=== PATIENT | female | born 1970 | race Caucasian/White ===

== ENCOUNTER 2021-05-23 11:45 | Observation (INO) ==
--- NOTE | 2021-05-23 12:20 | XRay Report ---
SINGLE VIEW CHEST CLINICAL HISTORY: Strokelike symptoms. FINDINGS: An AP, portable, upright chest radiograph is compared to study dated 09/14/2019. The cardio mediastinal silhouette is unremarkable. The lungs and pleural spaces are clear. No pneumothorax is se en. The bony thorax is grossly intact. IMPRESSION: No active disease in the chest. ACT 112: Negative or not required by law. Electronically signed by: Chris Landry M.D. 05/23/2021 12:18 PM
--- NOTE | 2021-05-23 12:38 | CT Scan Report ---
CT SCAN OF THE BRAIN WITHOUT IV CONTRAST CLINICAL HISTORY: Strokelike symptoms. Dizziness. Visual changes. COMPARISON STUDY: CT of the brain dated 07/18/2018. TECHNIQUE: Unenhanced axial CT scan of the brain is performed from the vertex to the skull base. A d ose lowering technique was utilized adhering to the principles of ALARA. CT DOSE: 537.48 mGy.cm FINDINGS: Brain parenchyma: The brain parenchyma is normal in appearance. There is no hemorrhage, mass effect, or evidence of acute territorial ischemia by CT criteria. Alvarez-white matter differentiation is preser georges. No extra-axial fluid collection is seen. Ventricles, sulci, cisterns: Normal in configuration. Intracranial vasculature: The visualized intracranial vasculature at the skull base is normal in appe arance. Calvarium: Unremarkable. Sinuses and mastoids: The visualized paranasal sinuses are clear. The mastoid air cells are well pneu matized. Orbits: The bony orbits are grossly intact. IMPRESSION: There is no hemorrhage, mass effect, or evidence of acute territorial ischemia by CT phyllis stark. ACT 112: Negative or not required by law. Electronically signed by: Chris Landry M.D. 05/23/2021 12:36 PM
[2021-05-23 12:42] LABS: Hematocrit (blood only) 42.6 % (37-47); Hemoglobin 14.4 g/dL (12.0-16.0); Mean Corpuscular Hemoglobin 31.6 pg (25-34); Mean Corpuscular Hgb Conc 33.8 g/dL (32-36); Mean Corpuscular Volume 93.6 fL (80-100); Mean Platelet Volume 9.9 fL (7.4-10.4); Platelet Count 85 K/uL (130-400); RDW Coefficient of Variation 14.4 % (11.5-14.5); RDW Standard Deviation 48.7 fL (36.4-46.3); Red Blood Count 4.55 M/uL (4.2-5.4); White Blood Count 5.07 K/uL (4.8-10.8)
[2021-05-23 12:46] LABS: Albumin Globulin Ratio 0.9 (0.9-2); Albumin Level 4.3 gm/dl (3.4-5.0); BUN Creatinine Ratio 11.4 (10-20); Calcium 9.6 mg/dl (8.5-10.1); Creatinine Clr Calc Pharmacy 85.5 ml/min; Est GFR (African American) 81.9 ml/min; Est GFR (Non-African American) 70.7 ml/min; Globulin 4.8 gm/dl (2.5-4.0); Magnesium 2.2 mg/dl (1.8-2.4); Potassium 4.2 mmol/L (3.5-5.1); Total Protein 9.1 gm/dl (6.4-8.2)
[2021-05-23 12:49] LABS: Appearance Urine Clear (Clear); Bilirubin Urine Negative (Negative); Blood Urine Negative (Negative); Color Urine Yellow; Glucose Urine UA Negative (Negative); Ketones Urine Negative (Negative); Leukocyte Esterase Urine Negative (Negative); Nitrite Urine Negative (Negative); Protein Urine Negative (Negative); Specific Gravity Urine 1.011 (1.000-1.030); Urobilinogen Urine Negative (Negative)
[2021-05-23 13:21] LABS: INR 1.4 (0.9-1.1); Partial Thromboplastin Ratio 4.2; Prothrombin Time 14.2 Seconds (9.0-12.0)
[2021-05-23 13:35] LABS: Partial Thromboplastin Time 111.3 Seconds (21.0-31.0)
--- NOTE | 2021-05-23 14:10 | Electrocardiogram Report ---
Test Reason : Blood Pressure : / mmHG Vent. Rate : 073 BPM Atrial Rate : 073 BPM P-R Int : 158 ms QRS Dur : 098 ms QT Int : 416 ms P-R-T Axes : 054 000 046 degrees QTc Int : 458 ms Normal sinus rhythm Poor R wave progression, consider anterior DE vs. lead placement vs. LVH Possible Abnormal ECG When compared with ECG of 30-JUL-2018 22:17, Minimal criteria for Inferior infarct are no longer Present Confirmed by Kranthi Vance ([id number]) on 05/23/2021 2:10:12 PM Referred By: Confirmed By:Kranthi Vance
--- NOTE | 2021-05-23 14:27 | Emergency Department Note ---
Impression & Plan Facial numbness, Left arm numbness, Visual disturbance ED Provider Note INFORMANT: Patient ED PROVIDER(S): Smith Mcelroy MD CHIEF COMPLAINT: Strokelike symptoms PLAN: Disposition: Admitted Condition: Good Outpatient prescription management: none Referral: None MEDICAL DECISION MAKING: Patient presented to the emergency department because of neuro complaints. She is asymptomatic at this time. A work-up was initiated. CT imaging the head was negative. Her ECG was unremarkable for acute process. The patient's blood work revealed a chronic thrombocytopenia. She also had elevated LFTs and elevated coagulation studies. Due to her abnormal blood work the patient would be at risk for bleeding with anticoagulation. Her neurologic symptoms are concerning although they have resolved at this time. Because of this issue further management in the hospital was felt to be appropriate. Consultation was made with the [facility] and the patient was evaluated in the ER for further management. Triage Nursing notes reviewed and agree them. Vital Signs: reviewed and remarkable for no significant abnormalities Differential diagnosis: CVA, TIA, Infection, dehydration, metabolic abnormality, hypo/hyperglycemia, electrolyte disturbance, anemia, hypoxia, cardiac sources, intracerebral event, toxicologic, neurologic, as well as other pathologies. Diagnostics interpreted by me: ECG: Twelve-lead ECG reveals normal sinus rhythm at 73 bpm. Anterior Q waves noted. No ST elevation or depression. Normal axis. No PVCs. Cardiac Monitoring: Cardiac monitoring ordered by me: The patient was placed on continuous cardiac monitoring and observed. It revealed a normal sinus rhythm at 73 beats per minute without ectopy or evidence of dysrhythmia. Imaging studies: Chest x-ray. Findings: A chest x-ray was performed and revealed no pneumothorax, effusion, infiltrate, pulmonary edema, free air under the diaph ragm, or wide mediastinum. Impression: No acute disease. Head CT: A noncontrast CT scan of the head was performed and was negative for tumor, fracture, intracranial hemorrhage, or other acute pathology. HPI: The patient is a 51 year old female who presents to the Emergency Room with complaints of stroke like symptoms. This started 10am and is resolved. The patient also notes the following associated symptoms, blurry vision in the left eye, left facial numbness, left arm numbness, and dizziness. The patient has taken no medication for relieving factors. Current pain is rated as 0/10. Pt denies LOC, headache, fevers, chills, diaphoresis, neck pain, chest pain, breathing difficulties, nausea, vomiting, abdominal pain, back pain, melena, hematochezia, urinary symptoms, weakness, lymphadenopathy, rash, or other complaints. ROS: See above HPI for pertinent positives & negatives. A total of 10 systems reviewed and were otherwise negative. PAST MEDICAL HISTORY:See Below , CVA, ITP PAST SURGICAL HISTORY:See Below, FAMILY HISTORY:See Below SOCIAL HISTORY:See Below, quit tobacco HOME MEDICATIONS:See Below ALLERGIES:See Below VITALS:See Below PHYSICAL EXAMINATION: GENERAL: Awake, alert, well-appearing, in no distress HENT: Normocephalic, atraumatic. Oropharynx unremarkable. EYES: Normal conjunctiva. Sclera non-icteric. PERRL, EOMI NECK: Inspection normal. Non-tender. Supple. No nuchal rigidity. FROM. No masses. RESPIRATORY: Clear to auscultation. No wheezes. No rales. Normal respiratory effort. CARDIAC: Normal rate. Normal rhythm. No murmurs. No rubs. Extremities warm and well perfused. Pulses equal. No JVD. GI: Soft, non-distended. No tenderness to palpation. No rebound or guarding. No masses. RECTAL: Deferred. MUSCULOSKELETAL: Atraumatic. Chest examination reveals no tenderness. The back is symmetrical on inspection without obvious abnormality. There is no CVA tenderness to palpation. No joint edema. LOWER EXTREMITIES: Calves are equal size bilaterally and non-tender. No edema. No discoloration. NEURO: Normal sensorium. No sensory or motor deficits noted. No drift. NML AMADO. SKIN: No rash or jaundice noted. 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 Beliefs That Will Affect Care: None Current Living Situation: Alone Other Information That Helps Us Care for You: No Feels Safe at Home: Yes Safety Concerns: Feels Safe At This Time Assistive Devices: None Allergies Allergies Allergy/AdvReac Type Severity Reaction Status Date / Time codeine Allergy Severe Hives Verified 05/23/21 14:02 Home Meds Home Medications Medication Instructions Recorded Confirmed pantoprazole 40 mg tablet,delayed 40 mg PO QAM 07/18/18 05/23/21 release (Protonix) simvastatin 20 mg tablet (Zocor) 20 mg PO HS 07/18/18 05/23/21 acetaminophen 500 mg tablet 500 - 1,000 mg PO Q6H PRN 09/14/19 05/23/21 (Tylenol Extra Strength) levothyroxine 25 mcg tablet 25 mcg PO QAM 09/14/19 05/23/21 (Synthroid) loratadine 10 mg tablet (Claritin) 10 mg PO DAILY PRN 09/14/19 05/23/21 multivitamin 1 tab PO QAM 09/14/19 05/23/21 albuterol sulfate 90 mcg/actuation 2 puffs INH 6XD PRN 02/07/20 05/23/21 aerosol inhaler (Ventolin HFA) Lactobacillus acidophilus 1.5 mg 1,000 mmu cells PO DAILY 05/23/21 05/23/21 (250 million cell) capsule (Probiotic Acidophilus) metformin 500 mg tablet 500 mg PO QDB 05/23/21 05/23/21 Results & Data (ED) Vital Signs Vital Signs - 24 hr 05/23/21 11:49 05/23/21 13:30 05/23/21 15:00 Temperature 36.3 C L Temperature Source Temporal Artery Scan Pulse Rate 75 Pulse Rate [Left Finger] 71 76 Pulse Rhythm [Left Finger] Regular Pulse Strength [Left Finger] Normal Respiratory Rate 16 20 20 Respiratory Effort / Characteristics Non-Labored Non-Labored Spontaneous Respiratory Depth Normal Normal Blood Pressure 110/70 Blood Pressure [Left Arm] 129/74 120/70 Blood Pressure Mean 83 Blood Pressure Mean [Left Arm] 92 86 Blood Pressure Position [Left Arm] Lying Sitting Pulse Oximetry 97 96 98 Oxygen Delivery Method Room Air Sepsis Recent Fever Within 48 Hours No Sepsis New/Unexplained Change in Mental Status N/A Sepsis Action Taken by Nursing No Action Required Laboratory Data Result diagrams: 05/23/21 12:00 05/23/21 12:00 Lab Results 05/23/21 05/23/21 05/23/21 Range/Units 12:00 12:00 12:00 WBC 5.07 (4.8-10.8) K/uL RBC 4.55 (4.2-5.4) M/uL Hgb 14.4 (12.0-16.0) g/dL Hct 42.6 (37-47) % MCV 93.6 (80-100) fL MCH 31.6 (25-34) pg MCHC 33.8 (32-36) g/dL RDW Std Deviation 48.7 H (36.4-46.3) fL RDW Coeff of Mitch 14.4 (11.5-14.5) % Plt Count 85 L (130-400) K/uL MPV 9.9 (7.4-10.4) fL PT Cancelled INR Cancelled APTT Cancelled PTT Ratio Cancelled Sodium 136 (136-145) mmol/L Potassium 4.2 (3.5-5.1) mmol/L Chloride 105 (98-107) mmol/L Carbon Dioxide 29 (21-32) mmol/L Anion Gap 2.0 L (3-11) BUN 11 (7-18) mg/dl Creatinine 0.93 (0.6-1.2) mg/dl Est Cr Clr Drug Dosing 85.5 ml/min Est GFR ( Amer) 81.9 ml/min Est GFR (Non-Af Amer) 70.7 ml/min BUN/Creatinine Ratio 11.4 (10-20) Glucose 96 (70-99) mg/dl POC Glucose (70-99) mg/dl Calcium 9.6 (8.5-10.1) mg/dl Magnesium 2.2 (1.8-2.4) mg/dl Total Bilirubin 1.0 (0.2-1) mg/dl AST 111 H (15-37) U/L ALT 115 H (12-78) U/L Alkaline Phosphatase 158 H (45-117) U/L Total Protein 9.1 H (6.4-8.2) gm/dl Albumin 4.3 (3.4-5.0) gm/dl Globulin 4.8 H (2.5-4.0) gm/dl Albumin/Globulin Ratio 0.9 (0.9-2) Specimen Hemolysis Urine Color Urine Appearance (Clear) Urine pH (4.5-7.5) Ur Specific [place] (1.000-1.030) Urine Protein (Negative) Urine Glucose (UA) (Negative) Urine Ketones (Negative) Urine Blood (Negative) Urine Nitrite (Negative) Urine Bilirubin (Negative) Urine Urobilinogen (Negative) Ur Leukocyte Esterase (Negative) COVID-19 Eval Order SARS-CoV-2 (PCR) (Negative) 05/23/21 05/23/21 05/23/21 Range/Units 12:33 12:46 13:49 WBC (4.8-10.8) K/uL RBC (4.2-5.4) M/uL Hgb (12.0-16.0) g/dL Hct (37-47) % MCV (80-100) fL MCH (25-34) pg MCHC (32-36) g/dL RDW Std Deviation (36.4-46.3) fL RDW Coeff of Mitch (11.5-14.5) % Plt Count (130-400) K/uL MPV (7.4-10.4) fL PT 14.2 H INR 1.4 H APTT 111.3 H* PTT Ratio 4.2 Sodium (136-145) mmol/L Potassium (3.5-5.1) mmol/L Chloride (98-107) mmol/L Carbon Dioxide (21-32) mmol/L Anion Gap (3-11) BUN (7-18) mg/dl Creatinine (0.6-1.2) mg/dl Est Cr Clr Drug Dosing ml/min Est GFR ( Amer) ml/min Est GFR (Non-Af Amer) ml/min BUN/Creatinine Ratio (10-20) Glucose (70-99) mg/dl POC Glucose 104 H (70-99) mg/dl Calcium (8.5-10.1) mg/dl Magnesium (1.8-2.4) mg/dl Total Bilirubin (0.2-1) mg/dl AST (15-37) U/L ALT (12-78) U/L Alkaline Phosphatase (45-117) U/L Total Protein (6.4-8.2) gm/dl Albumin (3.4-5.0) gm/dl Globulin (2.5-4.0) gm/dl Albumin/Globulin Ratio (0.9-2) Specimen Hemolysis Urine Color Yellow Urine Appearance Clear (Clear) Urine pH 6.0 (4.5-7.5) Ur Specific [place] 1.011 (1.000-1.030) Urine Protein Negative (Negative) Urine Glucose (UA) Negative (Negative) Urine Ketones Negative (Negative) Urine Blood Negative (Negative) Urine Nitrite Negative (Negative) Urine Bilirubin Negative (Negative) Urine Urobilinogen Negative (Negative) Ur Leukocyte Esterase Negative (Negative) COVID-19 Eval Order SARS-CoV-2 (PCR) (Negative) 05/23/21 05/23/21 Range/Units 14:44 14:44 WBC (4.8-10.8) K/uL RBC (4.2-5.4) M/uL Hgb (12.0-16.0) g/dL Hct (37-47) % MCV (80-100) fL MCH (25-34) pg MCHC (32-36) g/dL RDW Std Deviation (36.4-46.3) fL RDW Coeff of Mitch (11.5-14.5) % Plt Count (130-400) K/uL MPV (7.4-10.4) fL PT INR APTT PTT Ratio Sodium (136-145) mmol/L Potassium (3.5-5.1) mmol/L Chloride (98-107) mmol/L Carbon Dioxide (21-32) mmol/L Anion Gap (3-11) BUN (7-18) mg/dl Creatinine (0.6-1.2) mg/dl Est Cr Clr Drug Dosing ml/min Est GFR ( Amer) ml/min Est GFR (Non-Af Amer) ml/min BUN/Creatinine Ratio (10-20) Glucose (70-99) mg/dl POC Glucose (70-99) mg/dl Calcium (8.5-10.1) mg/dl Magnesium (1.8-2.4) mg/dl Total Bilirubin (0.2-1) mg/dl AST (15-37) U/L ALT (12-78) U/L Alkaline Phosphatase (45-117) U/L Total Protein (6.4-8.2) gm/dl Albumin (3.4-5.0) gm/dl Globulin (2.5-4.0) gm/dl Albumin/Globulin Ratio (0.9-2) Specimen Hemolysis Urine Color Urine Appearance (Clear) Urine pH (4.5-7.5) Ur Specific [place] (1.000-1.030) Urine Protein (Negative) Urine Glucose (UA) (Negative) Urine Ketones (Negative) Urine Blood (Negative) Urine Nitrite (Negative) Urine Bilirubin (Negative) Urine Urobilinogen (Negative) Ur Leukocyte Esterase (Negative) COVID-19 Eval Order Covid19 at [facility] SARS-CoV-2 (PCR) NEGATIVE (Negative) Administered Medications Lorazepam (Ativan) 1 mg in 2 mls @ 0.5 mls/min IV UD PRN PRN Reason: Anxiety Stop: 06/22/21 17:19 Last Admin: 05/23/21 22:30 Dose: 0.5 mls/min Documented by: [id number] Simvastatin (Simvastatin 20 Mg Tab) 20 mg PO HS MATTHIAS Stop: 06/22/21 20:59 Last Admin: 05/23/21 20:42 Dose: 20 mg Documented by: [id number] Imaging Data Radiologist's Impression: Chest X-Ray 05/23/21 11:56 SINGLE VIEW CHEST CLINICAL HISTORY: Strokelike symptoms. FINDINGS: An AP, portable, upright chest radiograph is compared to study dated 09/14/2019. The cardiomediastinal silhouette is unremarkable. The lungs and pleural spaces are clear. No pneumothorax is seen. The bony thorax is grossly intact. IMPRESSION: No active disease in the chest. ACT 112: Negative or not required by law. Electronically signed by: Chris Landry M.D. 05/23/2021 12:[address] 05/23/21 12:13 CT SCAN OF THE BRAIN WITHOUT IV CONTRAST CLINICAL HISTORY: Strokelike symptoms. Dizziness. Visual changes. COMPARISON STUDY: CT of the brain dated 07/18/2018. TECHNIQUE: Unenhanced axial CT scan of the brain is performed from the vertex to the skull base. A dose lowering technique was utilized adhering to the principles of ALARA. CT DOSE: 537.48 mGy.cm FINDINGS: Brain parenchyma: The brain parenchyma is normal in appearance. There is no hemorrhage, mass effect, or evidence of acute territorial ischemia by CT criteri a. Alvarez-white matter differentiation is preserved. No extra-axial fluid collection is seen. Ventricles, sulci, cisterns: Normal in configuration. Intracranial vasculature: The visualized intracranial vasculature at the skull base is normal in appearance. Calvarium: Unremarkable. Sinuses and mastoids: The visualized paranasal sinuses are clear. The mastoid air cells are well pneumatized. Orbits: The bony orbits are grossly intact. IMPRESSION: There is no hemorrhage, mass effect, or evidence of acute territorial ischemia by CT criteria. ACT 112: Negative or not required by law. Electronically signed by: Chris Landry M.D. 05/23/2021 12:36 PM Discharge Plan Visit Data Chief Complaint: Neuro Symptoms/Deficit Stated Complaint: VISION LOSS, TINGLING HANDS, HEAD TIGHTNESS ED Provider: Smith Mcelroy Discharge Problem: Facial numbness, Left arm numbness, Visual disturbance Patient Disposition: Admitted As Inpatient Discharge Instructions Interventions: ED Discharge Assessment Last Done: 05/23/21 16:20
[2021-05-23] MEDS ORDERED: ACETAMINOPHEN 325 MG TAB PO PRN (16:47)
[2021-05-23] MEDS ORDERED: PHARMACIST DISCHARGE MED REC CONSULT PRN (16:47)
[2021-05-23] MEDS ORDERED: LORazepam 1 MG/2 ML VIAL IV PRN (17:20)
--- NOTE | 2021-05-23 18:30 | History & Physical Report ---
Date of Service May 23, 2021 Assessment & Plan (1) Stroke-like symptoms: Plan: -Admit to telemetry -Patient presenting from home with reports of left eye blurriness, headache, left-sided tingling; symptoms now resolved -In the ED, head CT negative for acute findings -Brain MRI, neurochecks -if brain MRI positive for CVA, will complete work up with echo and carotid imaging -?? Complex migraine -Neurology consult -Noted history of ITP and antiphospholipid syndrome; platelets 85K today, if patient needs antiplatelet or anticoagulation, may need to consult with hematology (patient follows with Dr. Ralph Barron) (2) DM type 2 (diabetes mellitus, type 2): Plan: -Hgb A1c 5.4 05/2021 -Hold metformin while hospitalized, monitor BSG -add NovoLog if needed (3) Elevated LFTs: Plan: -History of elevated LFTs which seem to be at baseline today -Recommend outpatient follow-up with GI (4) Hyperlipidemia: Plan: -Continue statin (5) Hypothyroidism: Plan: -Continue levothyroxine (6) APL (antiphospholipid syndrome): (7) Chronic ITP (idiopathic thrombocytopenia): (8) Coagulopathy: Plan: -Platelets 85K, at baseline -INR 1.4, APTT 111 -Recommend follow-up with hematology (9) DVT prophylaxis: Plan: -SCDs due to thrombocytopenia Admission and Anticipated Discharge Date Admission Date: May 23, 2021 History of Present Illness Chief Complaint: Strokelike symptoms Primary Care Provider: Jewels Greenfield MD 51-year-old female with PMH hypothyroidism, GERD, chronic ITP, DM type II, antiphospholipid syndrome, and other problems to below who presents to the ED for evaluation of strokelike symptoms. Patient reports that this afternoon she was cooking lunch when the vision in her left eye became blurry, she developed a headache, and the left side of her body was tingling. She reports symptoms lasted for about 30 minutes and then resolved. She denies any unilateral weakness, facial droop, difficulty speaking or understanding. Patient denies chest pain or shortness of breath. No lightheadedness, dizziness, diaphoresis, syncopal events. She denies any other recent illnesses, fevers, chills. No abdominal pain, nausea, vomiting or diarrhea. She denies any urinary symptoms. In the ED, head CT is negative for acute findings. Allergies Allergy/AdvReac Type Severity Reaction Status Date / Time codeine Allergy Severe Hives Verified 05/23/21 14:02 Home Medications Medication Instructions Recorded Confirmed Type pantoprazole 40 mg tablet,delayed 40 mg PO QAM 07/18/18 05/23/21 History release (Protonix) simvastatin 20 mg tablet (Zocor) 20 mg PO HS 07/18/18 05/23/21 History acetaminophen 500 mg tablet 500 - 1,000 mg PO Q6H PRN 09/14/19 05/23/21 History (Tylenol Extra Strength) levothyroxine 25 mcg tablet 25 mcg PO QAM 09/14/19 05/23/21 History (Synthroid) loratadine 10 mg tablet (Claritin) 10 mg PO DAILY PRN 09/14/19 05/23/21 History multivitamin 1 tab PO QAM 09/14/19 05/23/21 History albuterol sulfate 90 mcg/actuation 2 puffs INH 6XD PRN 02/07/20 05/23/21 History aerosol inhaler (Ventolin HFA) Lactobacillus acidophilus 1.5 mg 1,000 mmu cells PO DAILY 05/23/21 05/23/21 History (250 million cell) capsule (Probiotic Acidophilus) metformin 500 mg tablet 500 mg PO QDB 05/23/21 05/23/21 History Past Med/Surg History Medical History Anxiety APL (antiphospholipid syndrome) Chronic ITP (idiopathic thrombocytopenia) DM type 2 (diabetes mellitus, type 2) Former tobacco use GERD (gastroesophageal reflux disease) Hyperlipidemia Hypothyroidism Surgical History History of bone marrow biopsy History of hysterectomy Family History (Updated 05/23/21 @ 18:35 by PADDY Tovar) Mother Diabetes Father Stroke Social History Smoking Status: Never smoker Second Hand Exposure: Yes; Hx Alcohol Use: No Hx Substance Use: No Preferred Language: Kenyan Communication Ability: Effective Icu Nurse Required: No Beliefs That Will Affect Care: None Current Living Situation: Alone Other Information That Helps Us Care for You: No Feels Safe at Home: Yes Safety Concerns: Feels Safe At This Time Assistive Devices: None Review of Systems Review of Systems: ROS per HPI, all other systems reviewed and negative Physical Exam Constitutional: WD/WN, vitals as above Eyes: PERRL, conjunctivae normal, anicteric sclerae ENMT: external ear and nose normal, oropharynx normal Respiratory: normal respiratory effort, lungs clear to auscultation Cardiovascular: Rate/Rhythm: regular rate and regular rhythm Vessels: normal peripheral pulses Extremities: + edema (Trace edema BLE) Gastrointestinal (Abdomen): normal bowel sounds, soft, nontender, no hepatosplenomegaly Musculoskeletal: no cyanosis or clubbing, extremities motor strength 5/5 Skin: no rashes, warm and dry Neurologic: PERRL, EOMI, accommodation nl, no face palsy, no dysarthria no focal motor deficits Psychiatric: A+Ox3, euthymic affect Results & Data Results & Data ([facility]) Vital Signs (Past 12 Hours) Vital Signs Temp Pulse Pulse Resp BP BP Pulse Ox 05/23/21 16:47 37.1 C 84 20 118/72 98 05/23/21 16:38 37.1 C 81 20 121/73 97 05/23/21 15:50 70 20 125/76 98 05/23/21 15:00 76 20 120/70 98 05/23/21 13:30 71 20 129/74 96 05/23/21 11:49 36.3 C L 75 16 110/70 97 Laboratory Results Short CBC 05/23/21 Range/Units 12:00 WBC 5.07 (4.8-10.8) K/uL Hgb 14.4 (12.0-16.0) g/dL Hct 42.6 (37-47) % Plt Count 85 L (130-400) K/uL BMP 05/23/21 12:00 Sodium 136 Potassium 4.2 Chloride 105 Carbon Dioxide 29 BUN 11 Creatinine 0.93 Glucose 96 Calcium 9.6 Liver Function 05/23/21 Range/Units 12:00 Total Bilirubin 1.0 (0.2-1) mg/dl AST 111 H (15-37) U/L ALT 115 H (12-78) U/L Alkaline Phosphatase 158 H (45-117) U/L Albumin 4.3 (3.4-5.0) gm/dl Urine 05/23/21 Range/Units 12:33 Urine Color Yellow Urine Appearance Clear (Clear) Urine pH 6.0 (4.5-7.5) Ur Specific [place] 1.011 (1.000-1.030) Urine Protein Negative (Negative) Urine Glucose (UA) Negative (Negative) Diagnostic Findings Chest X-Ray 05/23/21 11:56 SINGLE VIEW CHEST CLINICAL HISTORY: Strokelike symptoms. FINDINGS: An AP, portable, upright chest radiograph is compared to study dated 09/14/2019. The cardiomediastinal silhouette is unremarkable. The lungs and pleural spaces are clear. No pneumothorax is seen. The bony thorax is grossly intact. IMPRESSION: No active disease in the chest. ACT 112: Negative or not required by law. Electronically signed by: Chris Landry M.D. 05/23/2021 12:[address] 05/23/21 12:13 CT SCAN OF THE BRAIN WITHOUT IV CONTRAST CLINICAL HISTORY: Strokelike symptoms. Dizziness. Visual changes. COMPARISON STUDY: CT of the brain dated 07/18/2018. TECHNIQUE: Unenhanced axial CT scan of the brain is performed from the vertex to the skull base. A dose lowering technique was utilized adhering to the principles of ALARA. CT DOSE: 537.48 mGy.cm FINDINGS: Brain parenchyma: The brain parenchyma is normal in appearance. There is no hemorrhage, mass effect, or evidence of acute territorial ischemia by CT criteria. Alvarez-white matter differentiation is preserved. No extra-axial fluid collection is seen. Ventricles, sulci, cisterns: Normal in configuration. Intracranial vasculature: The visualized intracranial vasculature at the skull base is normal in appearance. Calvarium: Unremarkable. Sinuses and mastoids: The visualized paranasal sinuses are clear. The mastoid air cells are well pneumatized. Orbits: The bony orbits are grossly intact. IMPRESSION: There is no hemorrhage, mass effect, or evidence of acute territorial ischemia by CT criteria. ACT 112: Negative or not required by law. Electronically signed by: Chris Landry M.D. 05/23/2021 12:36 PM Code Status & VTE Plan VTE Prophylaxis Plan VTE Prophylaxis will be ordered: Yes Supervising Physician Co-Signing Physician Notes I saw this patient with the physician certified ophthalmic assistant, I participated in the history, physical, review of systems, and physical exam. I reviewed the medications with the patient and the physician certified ophthalmic assistant and helped reconcile the medications. I helped take a detailed family and social history as well. I formulated the assessment and plan personally with the physician certified ophthalmic assistant and went over it with the patient. Physical Exam Gen-AAO x 3, NAD, Afebrile Head-NCAT, EOMI, PERRLA, Anicteric Sclera, No Posterior Pharyngeal Erythema Neck-Supple, No JVD, No Thyromegaly, No Masses, No LAD, No Bruits Lungs-Clear to Auscultation Bilaterally, No Rales, No Rhonchi, No Wheezing, No Crepitus Chest-No S4, +S1, +S2, No S3, No Murmurs, No Rubs, No Gallops, No Ectopy Abdomen-Soft, Bowel Sounds Present, Non Tender, Non Distended, No Hepatomegaly, No Splenomegaly, No Palpable Masses, No Rebound, No Rigidity, No Guarding Musculoskeletal-Full Range of Motion Bilaterally, No CVAT Extremities-No Cyanosis, No Clubbing, No Edema Nuero-Cranial Nerves II-XII grossly intact, Motor WNL, DTRs WNL, Strength WNL, Non Focal Psych-Normal Mood
[2021-05-23] MEDS: SIMVASTATIN 20 MG TAB PO SCH (20:42)
[2021-05-24] MEDS: LEVOTHYROXINE SODIUM 25 MCG TABLET PO SCH (06:05)
[2021-05-24 07:23] LABS: Hematocrit (blood only) 37.8 % (37-47); Hemoglobin 12.9 g/dL (12.0-16.0); Mean Corpuscular Hemoglobin 31.5 pg (25-34); Mean Corpuscular Hgb Conc 34.1 g/dL (32-36); Mean Corpuscular Volume 92.2 fL (80-100); RDW Coefficient of Variation 14.2 % (11.5-14.5); RDW Standard Deviation 48.3 fL (36.4-46.3); White Blood Count 4.06 K/uL (4.8-10.8)
--- NOTE | 2021-05-24 07:45 | Magnetic Resonance Report ---
MRI OF THE BRAIN WITHOUT IV CONTRAST CLINICAL HISTORY: Strokelike symptoms COMPARISON STUDY: CT of the brain dated 05/23/2021. TECHNIQUE: MRI of the brain was performed utilizing various T1 and T2-weighted sequences in the axial , sagittal, and coronal planes. IV contrast was not administered for this examination. FINDINGS: Brain parenchyma: There is minimal microangiopathic change. The brain parenchyma is otherwise normal in appearance. There is no hemorrhage or mass effect. There is no restricted diffusion to suggest acu te ischemia. Alvarez-white matter differentiation is preserved. No extra-axial fluid collection is seen. The cerebellar tonsils are normal in configuration. Ventricles, sulci, and cisterns: Normal in configuration. Pituitary and sella: Unremarkable. Intracranial vasculature: Normal flow voids are maintained at the skull base. Orbits: The bony orbits are grossly intact. Orbital contents are normal in appearance. Sinuses and mastoids: Clear. Calvarium: Unremarkable. Cervical cord: Partially visualized cervical spinal cord is normal in morphology and signal intensity . IMPRESSION: No acute intracranial abnormality. ACT 112: Negative or not required by law. Electronically signed by: Chris Landry M.D. 05/24/2021 7:44 AM
[2021-05-24 07:55] LABS: BUN Creatinine Ratio 15.6 (10-20); Calcium 8.9 mg/dl (8.5-10.1); Est GFR (African American) 99.8 ml/min; Est GFR (Non-African American) 86.1 ml/min
[2021-05-24 08:05] LABS: Mean Platelet Volume 9.8 fL (7.4-10.4); Platelet Count 65 K/uL (130-400)
[2021-05-24 08:06] LABS: Basophils # (auto) 0.01 K/uL (0-0.2); Basophils % (auto) 0.2 %; Eosinophils # (auto) 0.03 K/uL (0-0.5); Eosinophils % (auto) 0.7 %; Immature Granulocytes # (auto) 0.01 K/uL (0.00-0.02); Immature Granulocytes % (auto) 0.2 %; Lymphocytes # (auto) 1.34 K/uL (1.2-3.4); Monocytes # (auto) 0.31 K/uL (0.11-0.59); Monocytes % (auto) 7.6 %; Neutrophils # (auto) 2.36 K/uL (1.4-6.5); Neutrophils % (auto) 58.3 %
[2021-05-24 08:07] LABS: Estimated Average Glucose 103 mg/dl; Hemoglobin A1C 5.2 % (4.5-5.6)
[2021-05-24] MEDS: PANTOprazole 40 MG TAB PO SCH (08:14)
--- NOTE | 2021-05-24 08:59 | Neurology Consultation ---
Date of Consultation May 24, 2021 Assessment & Plan (1) Stroke-like symptoms: 1. MRI brain- negative for stroke 2. CTA head and neck- for further vascular evaluation 3. TTE - r/o cardiac involvement 4. no aspirin due to low platelets 5. likely complex migraine but above work up will need completed 6. would start mg ox 400 mg and riboflavin 400 mg daily 7. will follow up in Neurology in 4-6 weeks for further management Bri NIELSON (2) Coagulopathy: 1. followed by Dr Barron (3) APL (antiphospholipid syndrome): 1. follow by Dr Barron (4) Dizzy spells: 1. will see in neurology Bri NIELSON 4-6 weeks 2. home exercises or Jorje for [place] 1. as above Supervising Physician Co-Signing Physician Notes I have seen and discussed above patient with Dr Smith Duron, neurology I have seen and examined this woman with Bri Black and suspect this was a migraine with visual and somatosensory aura as she does describe similar events in the past. It is very difficult to get a precise history but I have the impression that about 2 times a month she will have a headache with perhaps some visual disturbance that 1 could classify as migraine and that in addition she has some chronic sense of head position change related disequilibrium which has elements of benign positional vertigo but also is atypical Exam is normal the MRI shows no evidence for infarction or indeed any other significant findings but she does have some vascular risk factors specifically in the antiphospholipid antibody syndrome although she also has thrombocytopenia and we are really not in a position to recommend antiplatelet agents 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 I think it would be much simpler to do them while she is here in the hospital and clear the air as her compliance with follow-up may not be the best We are discussing these issues with Dr. Wright and will follow her up in our clinic post discharge as outlined above If these events seemingly are occurring in a high frequency we may need to empirically treat her with preventative migraine therapy Smith Duron MD History of Present Illness Reason for Consultation: stroke-like symptoms Requesting Physician: Ba Wright DO Attending Physician: Ba Wright DO History of Present Illness Car is a 51 year old female with PMH-hypothyroidism, GERD, chronic ITP, DM 2, antiphospholipid syndrome. She presented to [facility] ED 05/23/21 for evaluation of strokelike symptoms. That afternoon she was cooking lunch when the vision in her left eye became blurry, she developed a headache, and the left side of her body was tingling which lasted for about 30 minutes and then resolved. All of her symptoms have now resolved but she does still have some head pressure. She gets headaches 2-3 x per month with similar symptoms and complains of dizzy spells but has a hard time defining them but does say they happen when she moves her head too fast. denies CP ,SOB, abdominal pain, one sided weakness, numbness tingling, vision changes. Allergies Allergy/AdvReac Type Severity Reaction Status Date / Time codeine Allergy Severe Hives Verified 05/23/21 14:02 Home Medications Medication Instructions Recorded Confirmed Type pantoprazole 40 mg tablet,delayed 40 mg PO QAM 07/18/18 05/23/21 History release (Protonix) simvastatin 20 mg tablet (Zocor) 20 mg PO HS 07/18/18 05/23/21 History acetaminophen 500 mg tablet 500 - 1,000 mg PO Q6H PRN 09/14/19 05/23/21 History (Tylenol Extra Strength) levothyroxine 25 mcg tablet 25 mcg PO QAM 09/14/19 05/23/21 History (Synthroid) loratadine 10 mg tablet (Claritin) 10 mg PO DAILY PRN 09/14/19 05/23/21 History multivitamin 1 tab PO QAM 09/14/19 05/23/21 History albuterol sulfate 90 mcg/actuation 2 puffs INH 6XD PRN 02/07/20 05/23/21 History aerosol inhaler (Ventolin HFA) Lactobacillus acidophilus 1.5 mg 1,000 mmu cells PO DAILY 05/23/21 05/23/21 History (250 million cell) capsule (Probiotic Acidophilus) metformin 500 mg tablet 500 mg PO QDB 05/23/21 05/23/21 History Patient History Medical History Anxiety APL (antiphospholipid syndrome) Chronic ITP (idiopathic thrombocytopenia) DM type 2 (diabetes mellitus, type 2) Former tobacco use GERD (gastroesophageal reflux disease) Hyperlipidemia Hypothyroidism Surgical History History of bone marrow biopsy History of hysterectomy Family History (Updated 05/23/21 @ 18:35 by PADDY Tovar) Mother Diabetes Father Stroke Social History Smoking Status: Never smoker Second Hand Exposure: Yes; Hx Alcohol Use: No Hx Substance Use: No Preferred Language: Sierra Leonean Communication Ability: Effective Outcome Analyst Required: No Beliefs That Will Affect Care: None Current Living Situation: Alone Other Information That Helps Us Care for You: No Feels Safe at Home: Yes Safety Concerns: Feels Safe At This Time Assistive Devices: None, Denture - Upper and Denture - Lower Review of Systems Review of Systems: All systems reviewed & are unremarkable except as noted in Subjective Physical Exam Physical Exam: Physical Exam: Constitutional: appearance over nourished, healthy Ears, Nose, Mouth and Throat: mucous membranes moist, no injection and skin normal, eyes normal Cardiovascular: normal S-1 and S-2 and regular rate and rhythm Respiratory: clear to auscultation (CTA) and no rales, h or wheeze Musculoskeletal: no peripheral edema and good distal pulses Skin: no stigmata of neurocutaneous disease noted and normal and intact Eyes: extraocular muscles intact (EOMI) NEUROLOGIC EXAMINATION: Mental status: Alert and interactive Oriented to full date and location Oriented to person Speech fluent with no evidence of aphasia Cranial Nerves slight facial asymmetry eye brow raise symmetric Reflexes: Deep tendon reflexes were symmetrical and graded 2/5. Sensory: intact to light touch Coordination: finger to nose no bipass no reaching or resting tremor Gait/Stance: Posture normal. Gait normal: with steady with steps, base, turning, and tandem gait. Motor: Negative for pronator drift of out stretched arms with eyes closed. 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/5 bilaterally hip flex plantar flex ext 5/5 Results & Data ([facility]) Vital Signs (Past 12 Hours) Vital Signs Temp Pulse Pulse Resp BP Pulse Ox 05/24/21 06:54 36.7 C 64 18 103/65 98 05/24/21 04:27 37.1 C 103 H 18 92/58 L 92 05/23/21 23:31 37.3 C 81 81 18 118/75 93 05/23/21 21:15 36.9 C 73 16 126/72 93 Laboratory Results Abnormal lab results 05/23/21 05/23/21 05/23/21 Range/Units 12:00 12:00 12:46 WBC (4.8-10.8) K/uL RBC (4.2-5.4) M/uL RDW Std Deviation 48.7 H (36.4-46.3) fL Plt Count 85 L (130-400) K/uL PT 14.2 H (9.0-12.0) Seconds INR 1.4 H (0.9-1.1) APTT 111.3 H* (21.0-31.0) Seconds Anion Gap 2.0 L (3-11) POC Glucose (70-99) mg/dl AST 111 H (15-37) U/L ALT 115 H (12-78) U/L Alkaline Phosphatase 158 H (45-117) U/L Total Protein 9.1 H (6.4-8.2) gm/dl Globulin 4.8 H (2.5-4.0) gm/dl 05/23/21 05/24/21 05/24/21 Range/Units 13:49 06:44 07:16 WBC 4.06 L (4.8-10.8) K/uL RBC 4.10 L (4.2-5.4) M/uL RDW Std Deviation 48.3 H (36.4-46.3) fL Plt Count 65 L (130-400) K/uL PT (9.0-12.0) Seconds INR (0.9-1.1) APTT (21.0-31.0) Seconds Anion Gap (3-11) POC Glucose 104 H 118 H (70-99) mg/dl AST (15-37) U/L ALT (12-78) U/L Alkaline Phosphatase (45-117) U/L Total Protein (6.4-8.2) gm/dl Globulin (2.5-4.0) gm/dl Diagnostic Findings CT head-There is no hemorrhage, mass effect, or evidence of acute territorial ischemia by CT criteria. MRI brain-There is minimal microangiopathic change. The brain parenchyma is otherwise normal in appearance. There is no hemorrhage or mass effect. There is no restricted diffusion to suggest acute ischemia. Alvarez-white matter differentiation is preserved. No extra-axial fluid collection is seen. The cerebellar tonsils are normal in configuration.
--- NOTE | 2021-05-24 12:36 | Discharge Summary ---
Date of Service May 24, 2021 Admission HPI Per Admitting Provider 51-year-old female with PMH hypothyroidism, GERD, chronic ITP, DM type II, antiphospholipid syndrome, and other problems to below who presents to the ED for evaluation of strokelike symptoms. Patient reports that this afternoon she was cooking lunch when the vision in her left eye became blurry, she developed a headache, and the left side of her body was tingling. She reports symptoms lasted for about 30 minutes and then resolved. She denies any unilateral weakness, facial droop, difficulty speaking or understanding. Patient denies chest pain or shortness of breath. No lightheadedness, dizziness, diaphoresis, syncopal events. She denies any other recent illnesses, fevers, chills. No abdominal pain, nausea, vomiting or diarrhea. She denies any urinary symptoms. In the ED, head CT is negative for acute findings. Admission Exam Per Admitting Provider Constitutional: WD/WN, vitals as above Eyes: PERRL, conjunctivae normal, anicteric sclerae ENMT: external ear and nose normal, oropharynx normal Respiratory: normal respiratory effort, lungs clear to auscultation Cardiovascular: Rate/Rhythm: regular rate and regular rhythm Vessels: normal peripheral pulses Extremities: + edema (Trace edema BLE) Gastrointestinal (Abdomen): normal bowel sounds, soft, nontender, no hepatosplenomegaly Musculoskeletal: no cyanosis or clubbing, extremities motor strength 5/5 Skin: no rashes, warm and dry Neurologic: PERRL, EOMI, accommodation nl, no face palsy, no dysarthria no focal motor deficits Psychiatric: A+Ox3, euthymic affect Principal Diagnosis (1) Stroke-like symptoms: (2) DM type 2 (diabetes mellitus, type 2): (3) Elevated LFTs: (4) Hyperlipidemia: (5) Hypothyroidism: (6) APL (antiphospholipid syndrome): (7) Chronic ITP (idiopathic thrombocytopenia): (8) Coagulopathy: Discharge Exam Physical Exam Gen-AAO x 3, NAD, Afebrile Head-NCAT, EOMI, PERRLA, Anicteric Sclera, No Posterior Pharyngeal Erythema Neck-Supple, No JVD, No Thyromegaly, No Masses, No LAD, No Bruits Lungs-Clear to Auscultation Bilaterally, No Rales, No Rhonchi, No Wheezing, No Crepitus Chest-No S4, +S1, +S2, No S3, No Murmurs, No Rubs, No Gallops, No Ectopy Abdomen-Soft, Bowel Sounds Present, Non Tender, Non Distended, No Hepatomegaly, No Splenomegaly, No Palpable Masses, No Rebound, No Rigidity, No Guarding Musculoskeletal-Full Range of Motion Bilaterally, No CVAT Extremities-No Cyanosis, No Clubbing, No Edema Nuero-Cranial Nerves II-XII grossly intact, Motor WNL, DTRs WNL, Strength WNL, Non Focal Psych-Normal Mood Discharge Data Allergies Allergy/AdvReac Type Severity Reaction Status Date / Time codeine Allergy Severe Hives Verified 05/23/21 14:02 Consultations 05/23/21 14:55 ED Decision to Admit Stat 05/23/21 16:48 Consult Neurology Routine Ordered Studies 05/23/21 12:13 CT head/brain wo con Stat 05/23/21 16:47 MR brain wo con Routine Current Diagnoses Antiphospholipid syndrome (05/23/21) Coagulation defect, unspecified (05/23/21) Immune thrombocytopenic purpura (05/23/21) Hypothyroidism, unspecified (05/23/21) Type 2 diabetes mellitus without complications (05/23/21) Hyperlipidemia, unspecified (05/23/21) Unspecified symptoms and signs involving the nervous system (05/23/21) Other specified abnormal findings of blood chemistry (05/23/21) Encounter for prophylactic measures, unspecified (05/23/21) Allergies codeine Allergy (Severe, Verified 05/23/21 14:02) Hives Height/Weight/Isolation Height 5 ft 6 in Weight 101.1 kg Chemistry 05/23/21 05/24/21 12:00 06:44 Sodium 136 139 Potassium 4.2 4.0 Chloride 105 107 Carbon Dioxide 29 25 Anion Gap 2.0 L 7.0 BUN 11 12 Creatinine 0.93 0.79 Glucose 96 95 Urinalysis 05/23/21 12:33 Urine Color Yellow Urine Appearance Clear Urine pH 6.0 Ur Specific [place] 1.011 Urine Protein Negative Urine Glucose (UA) Negative Urine Ketones Negative Urine Blood Negative Urine Nitrite Negative Urine Bilirubin Negative Hospital Course (1) Stroke-like symptoms: -Patient presenting from home with reports of left eye blurriness, headache, left-sided tingling; symptoms resolved -In the ED, head CT negative for acute findings -Brain MRI-Neg for CVA -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 -Neurology on case -Noted history of ITP and antiphospholipid syndrome (2) DM type 2 (diabetes mellitus, type 2): -Hgb A1c 5.4 05/2021 -Resume metformin on DC (3) Elevated LFTs: -History of elevated LFTs which seem to be at baseline today -Recommend outpatient follow-up with GI (4) Hyperlipidemia: -Continue statin (5) Hypothyroidism: -Continue levothyroxine (6) APL (antiphospholipid syndrome): (7) Chronic ITP (idiopathic thrombocytopenia): (8) Coagulopathy: -Platelets 85K, at baseline -INR 1.4, APTT 111 -Recommend follow-up with hematology (9) DVT prophylaxis: -SCDs due to thrombocytopenia Total Time Total Time Spent Total Time Spent (In Minutes): 45 mins Total Time Includes: Examination of the Patient, Discharge Planning, Medication Reconciliation, Communication With Other Providers and Other Discharge Plan Discharge Items Patient Disposition: Home - Self-Care Reason For Visit: STROKE LIKE SYMPTOMS Discharge Diagnosis: (1) Stroke-like symptoms: (2) DM type 2 (diabetes mellitus, type 2): (3) Elevated LFTs: (4) Hyperlipidemia: (5) Hypothyroidism: (6) APL (antiphospholipid syndrome): (7) Chronic ITP (idiopathic thrombocytopenia): (8) Coagulopathy: Condition on Discharge: Good Health Concerns: Recurrent Migraines Activity: Resume your previous activity Lifting: Gradually increase as tolerated Bathing: No limitations Sexual Activity: When tolerated Exercise/Sports: Gradually increase as tolerated Driving/Machine Use: No limitations Weightbearing: Full weightbearing Non-emergency contact: Primary Care Provider Call non-emergency contact if: you have any medication questions Follow-up/Referrals: Jewels Greenfield MD [Primary Care Provider] - (Date & Time 05/27/2021 12:00 PM Provider Jewels Greenfield MD Department [facility] ) Diet: Carb Consistent or DM2 and Heart Healthy Addtl Attending Provider Instructions: None Pending Studies at Discharge: No Stand-Alone Forms: My [employer], Smoking Cessation Medications and DC Order Prescriptions: Continued albuterol sulfate [Ventolin HFA] 90 mcg/actuation HFA aerosol inhaler 2 puffs INH 6XD PRN (Reason: Shortness Of Breath Or Wheezing) RF: 0 pantoprazole [Protonix] 40 mg Tablet,Delayed Release (Dr/Ec) 40 mg PO QAM RF: 0 simvastatin [Zocor] 20 mg Tablet 20 mg PO HS RF: 0 multivitamin Tablet 1 tab PO QAM RF: 0 acetaminophen [Tylenol Extra Strength] 500 mg Tablet 500 - 1,000 mg PO Q6H PRN (Reason: Pain) RF: 0 levothyroxine [Synthroid] 25 mcg tablet 25 mcg PO QAM RF: 0 loratadine [Claritin] 10 mg Tablet 10 mg PO DAILY PRN (Reason: Allergy Symptoms) RF: 0 metformin 500 mg Tablet 500 mg PO QDB RF: 0 Probiotic Acidophilus 1.5 mg (250 million cell) Capsule 1,000 mmu cells PO DAILY RF: 0 Discharge Orders: Discharge Order (Routine); Ordered 05/24/21 Ordered By: Ba Wright Admission Data Admit Date/Time: 05/23/21 15:44 Attending Provider: Ba Wright Admit Provider: Ba Wright Primary Care Provider: Jewels Greenfield Other Providers: Ba Wright ; Smith Duron
[2021-05-24] MEDS ORDERED: STROKE PATIENT DISCHARGE STA (16:25)
[2021-05-24] MEDS ORDERED: OPTIRAY 320 125ml IV ONE (16:58)
--- NOTE | 2021-05-24 17:17 | CT Scan Report ---
CT angio neck with con CLINICAL HISTORY: Stroke like symptoms COMPARISON STUDY: None TECHNIQUE: CT angiography was performed from the aortic arch to the skull base. MIP imaging was perfo rmed. The patient was scanned in a dynamic helical fashion during intravenous administration of 119 c c of Optiray. A dose lowering technique was utilized adhering to the principles of ALARA. CT DOSE: Technique: CT angiogram of the carotid and vertebral arteries was obtained using intravenous contrast and 3-D reconstruction. NASCET criteria was utilized. Findings: The right carotid revealed no evidence of aneurysm and no evidence of dissection. There is no evidenc e of hemodynamic significant stenosis. The left carotid revealed no evidence of hemodynamic significant stenosis. There is no evidence of an eurysm. There is no evidence of dissection. There is no evidence of hemodynamically significant vertebral stenosis. There is no evidence of verte bral dissection. The left vertebral artery originates from the aortic arch. There is a small fenestra tion within the proximal basilar artery. IMPRESSION: No evidence of hemodynamically significant carotid or vertebral artery stenosis. No evidence of disse ction. ACT 112: Negative or not required by law. Electronically signed by: Rodriugez Bucio M.D. 05/24/2021 5:16 PM
--- NOTE | 2021-05-24 17:23 | CT Scan Report ---
CT angio head w con CLINICAL HISTORY: Stroke like symptoms TECHNIQUE: CT angiography of the head was performed in a dynamic helical fashion during intravenous a dministration of 119 cc of Optiray. MIP imaging was performed. A dose lowering technique was utilized adhering to the principles of ALARA. CT DOSE: 518.57 mGy.cm COMPARISON STUDY: No previous studies for comparison. FINDINGS: There are no lesion suspicious for aneurysm. There are no major intracranial branch occlusi ons. The dural venous sinuses appear patent. There is slight attenuation of the right middle cerebral artery vasculature in the region the sylvian fissure without evidence for a discrete vessel cut off. IMPRESSION: 1. Slight attenuation of the right middle cerebral artery vasculature in the region the right sylvian fissure without evidence for a discrete vessel cut off. Correlation with the patient's neurological symptoms recommended. 2. No evidence of aneurysm. ACT 112: Negative or not required by law. Electronically signed by: Rodriguez Bucio M.D. 05/24/2021 5:21 PM
[2021-05-24] MEDS: SIMVASTATIN 20 MG TAB PO SCH (20:35)
[2021-05-25] MEDS: LEVOTHYROXINE SODIUM 25 MCG TABLET PO SCH (05:38)
[2021-05-25 08:10] LABS: Hematocrit (blood only) 40.1 % (37-47); Hemoglobin 13.7 g/dL (12.0-16.0); Mean Corpuscular Hemoglobin 31.4 pg (25-34); Mean Corpuscular Hgb Conc 34.2 g/dL (32-36); RDW Coefficient of Variation 14.2 % (11.5-14.5); Red Blood Count 4.36 M/uL (4.2-5.4); White Blood Count 4.78 K/uL (4.8-10.8)
[2021-05-25] MEDS: PANTOprazole 40 MG TAB PO SCH (08:12)
[2021-05-25 08:20] LABS: Platelet Count 77 K/uL (130-400)
[2021-05-25 08:37] LABS: Eosinophils # (auto) 0.04 K/uL (0-0.5); Eosinophils % (auto) 0.8 %; Immature Granulocytes # (auto) 0.01 K/uL (0.00-0.02); Immature Granulocytes % (auto) 0.2 %; Lymphocytes # (auto) 1.21 K/uL (1.2-3.4); Lymphocytes % (auto) 25.3 %; Monocytes # (auto) 0.34 K/uL (0.11-0.59); Monocytes % (auto) 7.1 %; Neutrophils # (auto) 3.18 K/uL (1.4-6.5); Neutrophils % (auto) 66.6 %
[2021-05-25 08:42] LABS: Calcium 9.1 mg/dl (8.5-10.1); Creatinine Clr Calc Pharmacy 92.7 ml/min; Est GFR (African American) 91.3 ml/min; Est GFR (Non-African American) 78.8 ml/min
--- NOTE | 2021-05-25 12:12 | Hospitalist Progress Note ---
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 -Neurology on case -Noted history of ITP and antiphospholipid syndrome (3) DM type 2 (diabetes mellitus, type 2): Plan: -Hgb A1c 5.4 05/2021 -Resume metformin on DC (4) Elevated LFTs: Plan: -History of elevated LFTs which seem to be at baseline today -Recommend outpatient follow-up with GI (5) Hyperlipidemia: Plan: -Continue statin (6) Hypothyroidism: Plan: -Continue levothyroxine (7) APL (antiphospholipid syndrome): (8) Chronic ITP (idiopathic thrombocytopenia): (9) Coagulopathy: Plan: -Platelets 85K, at baseline -INR 1.4, APTT 111 -Recommend follow-up with hematology (10) DVT prophylaxis: Plan: -SCDs due to thrombocytopenia Admission and Anticipated Discharge Date Admission Date: May 23, 2021 Results & Data Results & Data ([facility]) Vital Signs (Past 12 Hours) Vital Signs Temp Pulse Resp BP Pulse Ox 05/25/21 11:51 36.7 C 92 H 20 113/66 95 05/25/21 06:58 36.6 C 68 17 102/68 95 05/25/21 04:24 36.7 C 63 18 118/73 97 Laboratory Results Short CBC 05/25/21 Range/Units 07:30 WBC 4.78 L (4.8-10.8) K/uL Hgb 13.7 (12.0-16.0) g/dL Hct 40.1 (37-47) % Plt Count 77 L (130-400) K/uL BMP 05/25/21 07:30 Sodium 137 Potassium 4.0 Chloride 106 Carbon Dioxide 25 BUN 14 Creatinine 0.85 Glucose 96 Calcium 9.1 Medications Administered Current Inpatient Medications Acetaminophen (Acetaminophen 325 Mg Tab) 650 mg PO Q4H PRN PRN Reason: Pain or Fever Stop: 06/22/21 16:46 Last Admin: 05/24/21 01:43 Dose: 650 mg Documented by: Lorazepam (Ativan) 1 mg in 2 mls @ 0.5 mls/min IV UD PRN PRN Reason: Anxiety Stop: 06/22/21 17:19 Last Admin: 05/23/21 22:30 Dose: 0.5 mls/min Documented by: Levothyroxine Sodium (Levothyroxine Sodium 25 Mcg Tablet) 25 mcg PO DAILYBB [facility] Stop: 06/23/21 06:29 Last Admin: 05/25/21 05:38 Dose: 25 mcg Documented by: Pantoprazole Sodium (Pantoprazole 40 Mg Tab) [facility] [place] Stop: 06/23/21 08:59 Last Admin: 05/25/21 08:12 Dose: 40 mg Documented by: Simvastatin (Simvastatin 20 Mg Tab) 20 mg PO HS [facility] Stop: 06/22/21 20:59 Last Admin: 05/24/21 20:35 Dose: 20 mg Documented by:
--- NOTE | 2021-05-25 23:46 | Discharge Summary ---
Date of Service May 25, 2021 Admission HPI Per Admitting Provider 51-year-old female with PMH hypothyroidism, GERD, chronic ITP, DM type II, antiphospholipid syndrome, and other problems to below who presents to the ED for evaluation of strokelike symptoms. Patient reports that this afternoon she was cooking lunch when the vision in her left eye became blurry, she developed a headache, and the left side of her body was tingling. She reports symptoms lasted for about 30 minutes and then resolved. She denies any unilateral weakness, facial droop, difficulty speaking or understanding. Patient denies chest pain or shortness of breath. No lightheadedness, dizziness, diaphoresis, syncopal events. She denies any other recent illnesses, fevers, chills. No abdominal pain, nausea, vomiting or diarrhea. She denies any urinary symptoms. In the ED, head CT is negative for acute findings. Admission Exam Per Admitting Provider Constitutional: WD/WN, vitals as above Eyes: PERRL, conjunctivae normal, anicteric sclerae ENMT: external ear and nose normal, oropharynx normal Respiratory: normal respiratory effort, lungs clear to auscultation Cardiovascular: Rate/Rhythm: regular rate and regular rhythm Vessels: normal peripheral pulses Extremities: + edema (Trace edema BLE) Gastrointestinal (Abdomen): normal bowel sounds, soft, nontender, no hepatosplenomegaly Musculoskeletal: no cyanosis or clubbing, extremities motor strength 5/5 Skin: no rashes, warm and dry Neurologic: PERRL, EOMI, accommodation nl, no face palsy, no dysarthria no focal motor deficits Psychiatric: A+Ox3, euthymic affect Principal Diagnosis complicated migraine Discharge Exam CONSTITUTIONAL: WNWD, vitals as above, generally well-appearing EYES: PERRL, normal conjunctivae, no scleral icterus, ENT: external ear and nose normal, MMM RESPIRATORY: clear to auscultation bilaterally, no crackles, rales or wheezes, normal respiratory effort CARDIOVASCULAR: regular rate and rhythm, S1 and 2 heard without murmurs, gallops or rubs, no JVD, no peripheral edema GASTROINTESTINAL: soft, nontender, nondistended MUSCULOSKELETAL: strength 5/5 throughout, head is normocephalic and atraumatic SKIN: warm and dry NEUROLOGIC: CN 2-12 grossly intact, no sensory deficit, normal cognition, normal speech, no tremor, no gross focal deficits. PSYCHIATRIC: alert cooperative and oriented to person, place and time. Discharge Data Allergies Allergy/AdvReac Type Severity Reaction Status Date / Time codeine Allergy Severe Hives Verified 05/23/21 14:02 Consultations 05/23/21 14:55 ED Decision to Admit Stat 05/23/21 16:48 Consult Neurology Routine Ordered Studies Laboratory Results WBC 4.78 K/uL (4.8-10.8) L 05/25/21 07:30 RBC 4.36 M/uL (4.2-5.4) 05/25/21 07:30 Hgb 13.7 g/dL (12.0-16.0) 05/25/21 07:30 Hct 40.1 % (37-47) 05/25/21 07:30 MCV 92.0 fL (80-100) 05/25/21 07:30 MCH 31.4 pg (25-34) 05/25/21 07:30 MCHC 34.2 g/dL (32-36) 05/25/21 07:30 RDW Std Deviation 48.0 fL (36.4-46.3) H 05/25/21 07:30 RDW Coeff of Mitch 14.2 % (11.5-14.5) 05/25/21 07:30 Plt Count 77 K/uL (130-400) L 05/25/21 07:30 MPV 10.0 fL (7.4-10.4) 05/25/21 07:30 Immature Gran % (Auto) 0.2 % 05/25/21 07:30 Neut % (Auto) 66.6 % 05/25/21 07:30 Lymph % (Auto) 25.3 % 05/25/21 07:30 Dyer % (Auto) 7.1 % 05/25/21 07:30 Eos % (Auto) 0.8 % 05/25/21 07:30 Baso % (Auto) 0.0 % 05/25/21 07:30 Neut # (Auto) 3.18 K/uL (1.4-6.5) 05/25/21 07:30 Lymph # (Auto) 1.21 K/uL (1.2-3.4) 05/25/21 07:30 Dyer # (Auto) 0.34 K/uL (0.11-0.59) 05/25/21 07:30 Eos # (Auto) 0.04 K/uL (0-0.5) 05/25/21 07:30 Baso # (Auto) 0.00 K/uL (0-0.2) 05/25/21 07:30 Immature Gran # (Auto) 0.01 K/uL (0.00-0.02) 05/25/21 07:30 PT 14.2 Seconds (9.0-12.0) H 05/23/21 12:46 INR 1.4 (0.9-1.1) H 05/23/21 12:46 APTT 111.3 Seconds (21.0-31.0) H* 05/23/21 12:46 PTT Ratio 4.2 05/23/21 12:46 Sodium 137 mmol/L (136-145) 05/25/21 07:30 Potassium 4.0 mmol/L (3.5-5.1) 05/25/21 07:30 Chloride 106 mmol/L (98-107) 05/25/21 07:30 Carbon Dioxide 25 mmol/L (21-32) 05/25/21 07:30 Anion Gap 6.0 (3-11) 05/25/21 07:30 BUN 14 mg/dl (7-18) 05/25/21 07:30 Creatinine 0.85 mg/dl (0.6-1.2) 05/25/21 07:30 Est Cr Clr Drug Dosing 92.7 ml/min 05/25/21 07:30 Est GFR ( Amer) 91.3 ml/min 05/25/21 07:30 Est GFR (Non-Af Amer) 78.8 ml/min 05/25/21 07:30 BUN/Creatinine Ratio 17.0 (10-20) 05/25/21 07:30 Glucose 96 mg/dl (70-99) 05/25/21 07:30 POC Glucose 124 mg/dl (70-99) H 05/25/21 11:20 Estimat Average Glucose 103 mg/dl 05/24/21 06:44 Hemoglobin A1c 5.2 % (4.5-5.6) 05/24/21 06:44 Calcium 9.1 mg/dl (8.5-10.1) 05/25/21 07:30 Magnesium 2.2 mg/dl (1.8-2.4) 05/23/21 12:00 Total Bilirubin 1.0 mg/dl (0.2-1) 05/23/21 12:00 AST 111 U/L (15-37) H 05/23/21 12:00 ALT 115 U/L (12-78) H 05/23/21 12:00 Alkaline Phosphatase 158 U/L (45-117) H 05/23/21 12:00 Total Protein 9.1 gm/dl (6.4-8.2) H 05/23/21 12:00 Albumin 4.3 gm/dl (3.4-5.0) 05/23/21 12:00 Globulin 4.8 gm/dl (2.5-4.0) H 05/23/21 12:00 Albumin/Globulin Ratio 0.9 (0.9-2) 05/23/21 12:00 Triglycerides 130 mg/dl (0-150) 05/24/21 06:44 Cholesterol 146 mg/dl (0-200) 05/24/21 06:44 LDL Cholesterol, Calc 91 mg/dl 05/24/21 06:44 VLDL Cholesterol, Calc 26 mg/dl 05/24/21 06:44 HDL Cholesterol 29 mg/dl 05/24/21 06:44 Cholesterol/HDL Ratio 5 05/24/21 06:44 Specimen Hemolysis 05/23/21 12:00 Urine Color Yellow 05/23/21 12:33 Urine Appearance Clear (Clear) 05/23/21 12:33 Urine pH 6.0 (4.5-7.5) 05/23/21 12:33 Ur Specific Landing 1.011 (1.000-1.030) 05/23/21 12:33 Urine Protein Negative (Negative) 05/23/21 12:33 Urine Glucose (UA) Negative (Negative) 05/23/21 12:33 Urine Ketones Negative (Negative) 05/23/21 12:33 Urine Blood Negative (Negative) 05/23/21 12:33 Urine Nitrite Negative (Negative) 05/23/21 12:33 Urine Bilirubin Negative (Negative) 05/23/21 12:33 Urine Urobilinogen Negative (Negative) 05/23/21 12:33 Ur Leukocyte Esterase Negative (Negative) 05/23/21 12:33 COVID-19 Eval Order Covid19 at [facility] 05/23/21 14:44 SARS-CoV-2 (PCR) NEGATIVE (Negative) 05/23/21 14:44 Impressions Chest X-Ray 05/23/21 11:56 SINGLE VIEW CHEST CLINICAL HISTORY: Strokelike symptoms. FINDINGS: An AP, portable, upright chest radiograph is compared to study dated 09/14/2019. The cardiomediastinal silhouette is unremarkable. The lungs and pleural spaces are clear. No pneumothorax is seen. The bony thorax is grossly intact. IMPRESSION: No active disease in the chest. ACT 112: Negative or not required by law. Electronically signed by: Chris Landry M.D. 05/23/2021 12:[address] 05/23/21 12:13 CT SCAN OF THE BRAIN WITHOUT IV CONTRAST CLINICAL HISTORY: Strokelike symptoms. Dizziness. Visual changes. COMPARISON STUDY: CT of the brain dated 07/18/2018. TECHNIQUE: Unenhanced axial CT scan of the brain is performed from the vertex to the skull base. A dose lowering technique was utilized adhering to the principles of ALARA. CT DOSE: 537.48 mGy.cm FINDINGS: Brain parenchyma: The brain parenchyma is normal in appearance. There is no hemorrhage, mass effect, or evidence of acute territorial ischemia by CT criteria. Alvarez-white matter differentiation is preserved. No extra-axial fluid collection is seen. Ventricles, sulci, cisterns: Normal in configuration. Intracranial vasculature: The visualized intracranial vasculature at the skull base is normal in appearance. Calvarium: Unremarkable. Sinuses and mastoids: The visualized paranasal sinuses are clear. The mastoid air cells are well pneumatized. Orbits: The bony orbits are grossly intact. IMPRESSION: There is no hemorrhage, mass effect, or evidence of acute territorial ischemia by CT criteria. ACT 112: Negative or not required by law. Electronically signed by: Chris Landry M.D. 05/23/2021 12:36 PM Brain MRI 05/23/21 16:47 MRI OF THE BRAIN WITHOUT IV CONTRAST CLINICAL HISTORY: Strokelike symptoms COMPARISON STUDY: CT of the brain dated 05/23/2021. TECHNIQUE: MRI of the brain was performed utilizing various T1 and T2-weighted sequences in the axial, sagittal, and coronal planes. IV contrast was not administered for this examination. FINDINGS: Brain parenchyma: There is minimal microangiopathic change. The brain parenchyma is otherwise normal in appearance. There is no hemorrhage or mass effect. There is no restricted diffusion to suggest acute ischemia. Alvarez-white matter differentiation is preserved. No extra-axial fluid collection is seen. The cerebellar tonsils are normal in configuration. Ventricles, sulci, and cisterns: Normal in configuration. Pituitary and sella: Unremarkable. Intracranial vasculature: Normal flow voids are maintained at the skull base. Orbits: The bony orbits are grossly intact. Orbital contents are normal in appearance. Sinuses and mastoids: Clear. Calvarium: Unremarkable. Cervical cord: Partially visualized cervical spinal cord is normal in morphology and signal intensity. IMPRESSION: No acute intracranial abnormality. ACT 112: Negative or not required by law. Electronically signed by: Chris Landry M.D. 05/24/2021 7:44 AM Head CTA 05/24/21 16:28 CT angio head w con CLINICAL HISTORY: Stroke like symptoms TECHNIQUE: CT angiography of the head was performed in a dynamic helical fashion during intravenous administration of 119 cc of Optiray. MIP imaging was performed. A dose lowering technique was utilized adhering to the principles of ALARA. CT DOSE: 518.57 mGy.cm COMPARISON STUDY: No previous studies for comparison. FINDINGS: There are no lesion suspicious for aneurysm. There are no major intracranial branch occlusions. The dural venous sinuses appear patent. There is slight attenuation of the right middle cerebral artery vasculature in the region the sylvian fissure without evidence for a discrete vessel cut off. IMPRESSION: 1. Slight attenuation of the right middle cerebral artery vasculature in the region the right sylvian fissure without evidence for a discrete vessel cut off. Correlation with the patient's neurological symptoms recommended. 2. No evidence of aneurysm. ACT 112: Negative or not required by law. Electronically signed by: Rodriguez Bucio M.D. 05/24/2021 5:21 PM Neck CTA 05/24/21 16:28 CT angio neck with con CLINICAL HISTORY: Stroke like symptoms COMPARISON STUDY: None TECHNIQUE: CT angiography was performed from the aortic arch to the skull base. MIP imaging was performed. The patient was scanned in a dynamic helical fashion during intravenous administration of 119 cc of Optiray. A dose lowering technique was utilized adhering to the principles of ALARA. CT DOSE: Technique: CT angiogram of the carotid and vertebral arteries was obtained using intravenous contrast and 3-D reconstruction. NASCET criteria was utilized. Findings: The right carotid revealed no evidence of aneurysm and no evidence of dissection. There is no evidence of hemodynamic significant stenosis. The left carotid revealed no evidence of hemodynamic significant stenosis. There is no evidence of aneurysm. There is no evidence of dissection. There is no evidence of hemodynamically significant vertebral stenosis. There is no evidence of vertebral dissection. The left vertebral artery originates from the aortic arch. There is a small fenestration within the proximal basilar artery. IMPRESSION: No evidence of hemodynamically significant carotid or vertebral artery stenosis. No evidence of dissection. ACT 112: Negative or not required by law. Electronically signed by: Rodriguez Bucio M.D. 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 Continue workup as outpatient. Close primary care follow-up recommended. Echo later reviewed and within normal limits. Follow-up with hematology for conditions below was recommended. (2) APL (antiphospholipid syndrome): (3) Chronic ITP (idiopathic thrombocytopenia): (4) Coagulopathy: Total Time Total Time Spent Total Time Spent (In Minutes): 30 Discharge Plan Discharge Items Patient Disposition: Home - Self-Care Reason For Visit: STROKE LIKE SYMPTOMS Discharge Diagnosis: Complicated migraine Condition on Discharge: Good Health Concerns: Recurrent Migraines Activity: Resume your previous activity Lifting: Gradually increase as tolerated Bathing: No limitations Sexual Activity: When tolerated Exercise/Sports: Gradually increase as tolerated Driving/Machine Use: No limitations Weightbearing: Full weightbearing Non-emergency contact: Primary Care Provider Call non-emergency contact if: you have any medication questions Follow-up/Referrals: Jewels Greenfield MD [Primary Care Provider] - (Date & Time 05/27/2021 12:00 PM Provider Jewels Greenfield MD Department Family Medicine [facility] ) Diet: Carb Consistent or DM2 and Heart Healthy Addtl Attending Provider Instructions: Please take magnesium and riboflavin (vitamin B2) daily as prescribed and follow-up [facility] Neurology in 4-6 weeks. It is recommended that you follow-up with your primary care provider after the hospital stay to ensure you are doing well after going home and to follow-up on your echocardiogram result which is pending at the time of your discharge. It was a pleasure taking care of you! Please call if you have any questions or problems. You can reach a [facility] hospitalist on duty at [facility] 24 hours a day by calling [phone]. Take care of yourself. Aliza Chaudhary, DO [facility] P[facility] Studies at Discharge: No Stand-Alone Forms: My [facility], Smoking Cessation Medications and DC Order Prescriptions: New magnesium oxide 400 mg (241.3 mg magnesium) tablet 400 mg PO DAILY Qty: 30 RF: 1 riboflavin (vitamin B2) 400 mg tablet 400 mg PO DAILY Qty: 30 RF: 1 Continued albuterol sulfate [Ventolin HFA] 90 mcg/actuation HFA aerosol inhaler 2 puffs INH 6XD PRN (Reason: Shortness Of Breath Or Wheezing) RF: 0 pantoprazole [Protonix] 40 mg Tablet,Delayed Release (Dr/Ec) 40 mg PO QAM RF: 0 simvastatin [Zocor] 20 mg Tablet 20 mg PO HS RF: 0 multivitamin Tablet 1 tab PO QAM RF: 0 acetaminophen [Tylenol Extra Strength] 500 mg Tablet 500 - 1,000 mg PO Q6H PRN (Reason: Pain) RF: 0 levothyroxine [Synthroid] 25 mcg tablet 25 mcg PO QAM RF: 0 loratadine [Claritin] 10 mg Tablet 10 mg PO DAILY PRN (Reason: Allergy Symptoms) RF: 0 metformin 500 mg Tablet 500 mg PO QDB RF: 0 Probiotic Acidophilus 1.5 mg (250 million cell) Capsule 1,000 mmu cells PO DAILY RF: 0 Discharge Orders: Discharge Order (Routine); Ordered 05/25/21 Ordered By: Aliza Chaudhary Admission Data Admit Date/Time: 05/23/21 15:44 Attending Provider: Aliza Chaudhary Admit Provider: Ba Wright Primary Care Provider: Jewels Greenfield Other Providers: Ba Wright ; Smith Duron Other Interventions: Discharge Summary Assessment (RN) Last Done: 05/25/21 13:13
== END 2021-05-25 13:38 | disposition home or self-care (01) ==
LOC: ED 11:45 → 2S 11:45 → SUATTDRO 15:44 → 2S 16:20
DX: G43.109 Migraine with aura, not intractable, without status migrainosus; Z79.84 Long term (current) use of oral hypoglycemic drugs; D68.61 Antiphospholipid syndrome; K21.9 Gastro-esophageal reflux disease without esophagitis; D68.9 Coagulation defect, unspecified; Z87.891 Personal history of nicotine dependence; E03.9 Hypothyroidism, unspecified; R79.89 Other specified abnormal findings of blood chemistry; Z79.51 Long term (current) use of inhaled steroids; D69.3 Immune thrombocytopenic purpura; E11.9 Type 2 diabetes mellitus without complications; R29.818 Other symptoms and signs involving the nervous system; E78.5 Hyperlipidemia, unspecified; Z79.899 Other long term (current) drug therapy

== ENCOUNTER 2022-01-21 08:05 | Observation (INO) ==
[2022-01-21] MEDS ORDERED: SODIUM CHLORIDE 0.9% 1000ML 1,000 ML IV STA (08:25)
[2022-01-21 08:40] LABS: Hematocrit (blood only) 34.4 % (37-47); Hemoglobin 12.2 g/dL (12.0-16.0); Mean Corpuscular Hemoglobin 31.9 pg (25-34); Mean Corpuscular Hgb Conc 35.5 g/dL (32-36); Mean Corpuscular Volume 90.1 fL (80-100); RDW Coefficient of Variation 13.8 % (11.5-14.5); RDW Standard Deviation 45.8 fL (36.4-46.3); Red Blood Count 3.82 M/uL (4.2-5.4); White Blood Count 6.25 K/uL (4.8-10.8)
--- NOTE | 2022-01-21 08:41 | XRay Report ---
XR chest 1V portable CLINICAL HISTORY: Atypical chest pain. COMPARISON STUDY: Chest radiograph June 25, 2021. FINDINGS: Lung volumes are normal. Lungs are clear. There is no pneumothorax or pleural effusion. Car diac size is stable. Mediastinal contours are normal. There is no evidence for pulmonary edema. IMPRESSION: No acute cardiopulmonary findings. ACT 112: Negative or not required by law. Electronically signed by: Laith Gold M.D. 01/21/2022 8:39 AM
[2022-01-21 08:47] LABS: Mean Platelet Volume 9.5 fL (7.4-10.4); Platelet Count 87 K/uL (130-400)
[2022-01-21 09:09] LABS: Albumin Level 3.7 gm/dl (3.4-5.0); BUN Creatinine Ratio 9.2 (10-20); Bilirubin,Total 1.5 mg/dl (0.2-1.0); Creatinine Clr Calc Pharmacy 89.3 ml/min; Est GFR (African American) 88.8 ml/min; Est GFR (Non-African American) 76.6 ml/min; Globulin 3.7 gm/dl (2.5-4.0); Potassium 3.4 mmol/L (3.5-5.1); Total Protein 7.4 gm/dl (6.0-8.3)
[2022-01-21 09:12] LABS: Basophils # (auto) 0.01 K/uL (0-0.2); Basophils % (auto) 0.2 %; Eosinophils # (auto) 0.04 K/uL (0-0.5); Eosinophils % (auto) 0.6 %; Immature Granulocytes # (auto) 0.01 K/uL (0.00-0.02); Immature Granulocytes % (auto) 0.2 %; Lymphocytes # (auto) 0.77 K/uL (1.2-3.4); Lymphocytes % (auto) 12.3 %; Monocytes # (auto) 0.58 K/uL (0.11-0.59); Monocytes % (auto) 9.3 %; Neutrophils # (auto) 4.84 K/uL (1.4-6.5); Neutrophils % (auto) 77.4 %
[2022-01-21 09:14] LABS: Troponin I 0.12 ng/ml (0-0.04)
[2022-01-21 09:40] LABS: D Dimer 5950 ug/L FEU (0-500)
--- NOTE | 2022-01-21 10:11 | Ultrasound Report ---
LEFT LOWER EXTREMITY VENOUS DOPPLER CLINICAL HISTORY: swelling, recent surgery COMPARISON STUDY: No previous studies for comparison. TECHNIQUE: Sonography of the deep venous system of the left lower extremity was performed. Compressi on and augmentation were evaluated. FINDINGS: The left common femoral, superficial femoral and popliteal veins were compressible. Augmen tation was normal. Flow was shown within the deep calf vessels. IMPRESSION: No evidence of deep venous thrombus within the left lower extremity. ACT 112: Negative or not required by law. Electronically signed by: Laith Gold M.D. 01/21/2022 10:10 AM
[2022-01-21] MEDS ORDERED: GI COCKTAIL ED USE PO ONE (10:29)
[2022-01-21] MEDS ORDERED: OPTIRAY 320 125ml IV ONE (11:05)
--- NOTE | 2022-01-21 11:57 | CT Scan Report ---
CT ANGIOGRAM OF THE CHEST; CT SCAN OF THE ABDOMEN AND PELVIS WITH IV CONTRAST CLINICAL HISTORY: Pain. Mid abdominal pain. Elevated d-dimer. Recent cholecystectomy. COMPARISON STUDY: Chest x-ray dated 01/21/2022. Abdominal CT dated 05/21/2011. TECHNIQUE: Following the IV administration of 119 of Optiray 320, CT angiogram of the chest is perfor med from the upper abdomen to the thoracic inlet utilizing the pulmonary embolus protocol. Images are reviewed in the axial, sagittal, coronal planes. 3-D MIPS images are created and assessed. Subsequen tly, CT scan of the abdomen and pelvis was performed from the lung bases to the proximal femora. Imag es are reviewed in the axial, sagittal, and coronal planes. IV contrast was administered without comp lication. A dose lowering technique was utilized adhering to the principles of ALARA. CT DOSE: 1594.76 mGy.cm FINDINGS: CHEST: Thyroid: Imaged portions of the thyroid gland are normal in size and attenuation. Thoracic aorta: The thoracic aorta is normal in caliber and demonstrates 4-vessel variant arch anatom y. No dissection is seen. Pulmonary vasculature: The pulmonary trunk is dilated, measuring 3.4 cm in diameter. This suggests pu lmonary artery hypertension.. There are no filling defects identified in the main, lobar, or segmenta l pulmonary arteries to indicate pulmonary embolus. Heart: The heart is normal in size and without pericardial effusion. The coronary arteries are densel y calcified. Lungs and pleural spaces: A fat-containing Bochdalek hernia is noted at the right lung base. There is no airspace consolidation or pleural effusion. The trachea and central airways are clear. Mediastinum: There is no mediastinal lymphadenopathy. Daya: Clear. Axillae: There are shotty axillary lymph nodes. Bony thorax: No lytic or blastic lesions are identified. ABDOMEN AND PELVIS: Liver: The contrast-enhanced liver is enlarged, measuring 21.6 cm in length. The liver is otherwise n ormal in contour and attenuation. There is no intrahepatic or ductal dilatation. The hepatic veins an d portal veins are patent. Gallbladder: The gallbladder surgically absent noting clips in the gallbladder fossa. There is infilt ration identified throughout the gallbladder fossa. There is a multiloculated fluid collection in the gallbladder fossa and along the inferior left lobe of the liver. This is best seen on axial image #1 71. The loculation in the gallbladder fossa measures approximately 4 x 4 x 2 cm as seen on image #169 , and the loculation along the inferior left lobe of the liver measures approximately 7 x 4.5 x 2.5 c m. This is best seen on image #174. Spleen: The spleen is markedly enlarged measuring 20.3 cm in length. Pancreas: Unremarkable. Adrenal glands: Unremarkable. Kidneys: The contrast enhanced kidneys are normal in size and without hydronephrosis. The kidneys enh ance symmetrically. Abdominal vasculature: The abdominal aorta is normal in course and caliber noting moderate atheroscle rotic calcification. Bowel: There is mild colonic diverticulosis without CT evidence of acute diverticulitis. No bowel obs truction is identified. Wall thickening of the duodenum is likely related to recent surgery. The appe ndix is nonvisualized. Peritoneum: No intraperitoneal free air is identified. There is trace fluid in the paracolic gutters and pelvis. There is a fat-containing umbilical hernia. Pericolic induration and gas is likely relat ed to recent surgery. Lymphadenopathy: There are numerous mildly enlarged upper abdominal lymph nodes. Gastrohepatic nodes measure up to 1.4 cm in short axis. There are numerous mildly enlarged retroperitoneal lymph nodes wh ich measure up to 1.3 cm in short axis. A left iliac chain node on image #309 measures 2.0 x 1.3 cm, and the left external iliac chain node on image #357 measures 2.8 x 1.3 cm. No inguinal adenopathy is identified. Pelvic viscera: The bladder is normal as visualized. The uterus is surgically absent. No adnexal lesi on is identified. Skeletal structures: No lytic or blastic lesions are seen. There is mild lumbosacral spondylosis. Scl erotic change is noted in the sacroiliac joints. IMPRESSION: 1. There is no evidence of pulmonary embolus in the main, lobar, or segmental pulmonary arteries. 2. There is no airspace consolidation or pleural effusion. 3. Status post cholecystectomy. 4. There is infiltration and a multiloculated fluid collection in the gallbladder fossa extending edil ng the inferior left lobe of the liver as detailed above. This could represent expected postoperative change such as a seroma/hematoma, a biloma, or possibly developing abscess. Clinical correlation sue l be essential. 5. Marked hepatosplenomegaly. 6. There are numerous mildly enlarged upper abdominal, retroperitoneal, and left iliac chain lymph no mckenna as above. These are indeterminant and may be reactive. These nodes are similar to the 2011 examin ation. Correlation with the patient's medical/oncological history will be required. 7. Wall thickening of the duodenum is likely related to adjacent inflammation/recent surgery. 8. Small volume abdominopelvic ascites. 9. Additional findings as above. ACT 112: Negative or not required by law. Electronically signed by: Chris Landry M.D. 01/21/2022 11:56 AM
--- NOTE | 2022-01-21 12:32 | Electrocardiogram Report ---
Test Reason : Blood Pressure : / mmHG Vent. Rate : 093 BPM Atrial Rate : 093 BPM P-R Int : 150 ms QRS Dur : 098 ms QT Int : 358 ms P-R-T Axes : 080 -31 056 degrees QTc Int : 445 ms Normal sinus rhythm Possible Left atrial enlargement Left axis deviation Low voltage QRS Poor R wave progression, consider anterior LA vs. lead placement vs. LVH Abnormal ECG When compared with ECG of 25-JUN-2021 12:30, Premature ventricular complexes are no longer Present QRS axis Shifted left Confirmed by Gamal Lawson ([id number]) on 01/21/2022 12:31:52 PM Referred By: REFERRED SELF Confirmed By:Lance Lawson
--- NOTE | 2022-01-21 13:24 | History & Physical Report ---
Date of Service January 21, 2022 Assessment & Plan (1) Chest discomfort: Plan: Has resolved with GI cocktail given in ED. Troponin mildly elevated in ED. Denies prior cardiac. - Observe overnight on telemetry - Trend troponin - Check ECHO - EKG in AM and prn for chest pain - If work-up abnormal or worsening chest discomfort, consider cardiology consult but will hold off for now (2) Nausea: Plan: Ongoing issue since cholecystectomy on Sunday - limiting ability to maintain oral intake. Fluid collection on CT - ?biliary leak, ?developing abscess - Continue PPI, add prn [id number] - Consult general surgery for additional recommendations - Will hold antibiotics for now since afebrile, no leukocytosis but can add if clinical situation changes or if indicated per surgeon (3) Status post cholecystectomy: (4) DM type 2 (diabetes mellitus, type 2): Plan: - Diabetic diet - BSG ACHS - Hold Metformin - will use insulin sliding scale while admitted - A1c in AM (5) Hypothyroidism: (6) APL (antiphospholipid syndrome): Plan: Has not previously had a thrombotic event so prophylactic aspirin has been deferred to this point. Due to potential cardiac etiology, will add daily low- dose aspirin for now. (7) Chronic ITP (idiopathic thrombocytopenia): Plan: Stable per review of outpatient records - in 2018, received four days of high- dose Decadron then Rituxan weekly x 4 without response, given IVIG x 2 days with response of platelet count increasing to ~100K (8) Hyperlipidemia: (9) GERD (gastroesophageal reflux disease): Plan: Continue other home medications as appropriate. Pt seen with collaborating physician, Dr. Chaudhary. Plan of care discussed and as outlined above. Code Status: Full code DVT Prophylaxis: Cher Calvo PA-C History of Present Illness Chief Complaint: Chest discomfort, nausea Primary Care Provider: Jewels Greenfield MD This is a 51 y/o female with a PMH of DM2, GERD, metabolic syndrome, antiphospholipid syndrome, chronic ITP, hypothyroidism, dyslipidemia, and complex migraine who presents to the ED via EMS with chest discomfort, fever, chills, and persistent nausea. Underwent a cholecystectomy on Sunday five days ago. She feels like she has overall not done well since surgery with multiple complaints. Specifically, she hasn't been able to eat much since surgery. Able to eat some jello, sweet potatoes, chicken noodle soup, pudding but nothing more. Gets nauseated with eating anything but hasn't vomited. Also c/o chest discomfort for past few days. Thought initially it was indigestion and heartburn which she usually gets and then perhaps secondary to gas. She did note some palpitations at one point but these are better now. Points to center of her chest when asked location of pain. Feels relief of this discomfort after the GI cocktail in the ED. Has also had some gas pains in her abdomen. Had some diarrhea after a cup of coffee but otherwise usual BM. Last BM was two days ago. Ongoing bloating and gas since surgery. Pain in abdomen mostly related to the incision. +eructation and passing gas. Today called EMS due to fevers, chills, feeling worse - EMS noted a temp of 100.3. Mobile feverish and had chills last night - Tmax was 100.8F at home. Also reports dyspnea on exertion, specifically with a couple of flights of steps, for "a while" - took a breathing treatment before her surgery which she says helped. Had some transient burning and red urine after surgery but this has since resolved. Only checks sugars at home when she "feels off" but no recent elevation of sugar over 200. Allergies Allergy/AdvReac Type Severity Reaction Status Date / Time codeine Allergy Intermediate Hives Verified 01/21/22 10:37 Home Medications Medication Instructions Recorded Confirmed Type pantoprazole 40 mg tablet,delayed 40 mg PO QAM 07/18/18 01/21/22 History release (Protonix) simvastatin 20 mg tablet (Zocor) 20 mg PO HS 07/18/18 01/21/22 History acetaminophen 500 mg tablet 500 - 1,000 mg PO Q6H PRN 09/14/19 01/21/22 History (Tylenol Extra Strength) levothyroxine 25 mcg tablet 25 mcg PO QAM 09/14/19 01/21/22 History (Synthroid) multivitamin 1 tab PO QAM 09/14/19 01/21/22 History Lactobacillus acidophilus 1.5 mg 1,000 mmu cells PO QAM 05/23/21 01/21/22 History (250 million cell) capsule (Probiotic Acidophilus) metformin 500 mg tablet 500 mg PO QAM 05/23/21 01/21/22 History diphenhydramine HCl 25 mg capsule 25 mg PO HS PRN 11/24/21 01/21/22 History (Benadryl) Past Med/Surg History Medical History Anxiety APL (antiphospholipid syndrome) 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 Chronic ITP (idiopathic thrombocytopenia) DX'D 2010-F/U [facility] Chronic obstructive pulmonary disease HX-LAST INHALER USE OVER 1 YEAR AGO DM type 2 (diabetes mellitus, type 2) Former tobacco use GERD (gastroesophageal reflux disease) History of COVID-19 PER PT-DX'D SUMMER 2020 [facility] [place]-FEVER, DRY COUGH, SEVERE HEADACHE, LOSS TASTE AND SMELL, FEVER, BODY ACHES-RECOVERED AT HOME-SYMPTOMS RESOLVED 12/2021 TESTED PRIOR TO SURGERY AT [facility]>+ AGAIN (LOSS OF TASTE AND SMELL/DRY COUGH) Hx of migraines Hyperlipidemia Hypothyroidism Surgical History History of bone marrow biopsy History of colonoscopy History of hysterectomy History of myringotomy History of tonsillectomy and adenoidectomy History of tooth extraction Family History Mother Diabetes Father Stroke Other No family history of adverse response to anesthesia Social History Smoking Status: Former smoker Tobacco Type: Cigarettes Cigarettes Per Day: 1 ppd; Smoking End Date: 2018; Second Hand Exposure: No; Do You Dip or Chew Tobacco: No; Hx Alcohol Use: Yes Alcohol type: wine Hx Substance Use: Yes Last Used Substance Other:: No current use, over 10 years ago Preferred Language: Tongan Communication Ability: Effective Rn Triage Required: No Beliefs That Will Affect Care: None Current Living Situation: Significant Other Current Living Situation Comment: LIVES WITH S[facility]AGE current occupation: DOES NOT WORK Other Information That Helps Us Care for You: No Feels Safe at Home: Yes Safety Concerns: Feels Safe At This Time Assistive Devices: Denture - Upper, Denture - Lower and Glasses Review of Systems Review of Systems: All systems reviewed & are unremarkable except as noted in HPI & below Constitutional: + fever, + chills, + fatigue and + anorexia Eyes: no diplopia and no worsening vision Ear, Nose, Mouth, Throat: no nasal congestion, no nasal discharge and no sore throat Respiratory: + cough and + dyspnea on exertion Cardiovascular: + chest pain, + palpitations and + edema; no syncope Gastrointestinal: as per Subjective / HPI Genitourinary: as per Subjective / HPI Musculoskeletal: + back pain; no neck pain and no joint pain Integumentary: no rash and no yellowing of the skin Neurologic: + generalized weakness and + headache(s) Psychiatric: no depression and no anxiety Physical Exam Constitutional: well developed and well nourished; no acute distress Eyes: + anicteric sclerae ENMT: external ear and nose normal, oropharynx normal missing her dentures Neck: trachea midline Respiratory: no respiratory distress and no labored breathing Auscultation: lungs clear to auscultation bilaterally; no rales, no rhonchi and no wheezes Cardiovascular: Rate/Rhythm: regular rate and regular rhythm Heart Sounds: no gallop, no murmur and no cardiac rub Vessels: dorsalis pedis pulses present and radial pulses present Extremities: + edema (trace bilateral) Gastrointestinal (Abdomen): Inspection/Auscultation: normal bowel sounds Percussion/Palpation: + abdomen tender (mild RUQ) and abdomen soft (but slight firmness in RUQ) Musculoskeletal: Head/Neck/Chest: normocephalic, head atraumatic and neck supple Skin: no jaundice dressings removed from all abdominal incisions - small amount of dried sanguinous drainage on dressings but no active drainage or surrounding erythema. Steri-strips in place Neurologic: moves all extremities; no focal motor deficits Psychiatric: A+Ox3, euthymic affect Results & Data Results & Data ([facility]) Vital Signs (Past 12 Hours) Vital Signs Temp Pulse Pulse Resp BP BP Pulse Ox 01/21/22 11:15 82 20 134/53 L 95 01/21/22 09:52 83 16 117/74 98 01/21/22 08:05 36.9 C 102 H 16 142/96 H 97 Laboratory Results Laboratory Results - last 24 hr 01/21/22 01/21/22 01/21/22 08:30 08:30 09:03 WBC 6.25 RBC 3.82 L Hgb 12.2 Hct 34.4 L MCV 90.1 MCH 31.9 MCHC 35.5 RDW Std Deviation 45.8 RDW Coeff of Mitch 13.8 Plt Count 87 L MPV 9.5 Immature Gran % (Auto) 0.2 Neut % (Auto) 77.4 Lymph % (Auto) 12.3 Wallace % (Auto) 9.3 Eos % (Auto) 0.6 Baso % (Auto) 0.2 Neut # (Auto) 4.84 Lymph # (Auto) 0.77 L Wallace # (Auto) 0.58 Eos # (Auto) 0.04 Baso # (Auto) 0.01 Immature Gran # (Auto) 0.01 D-Dimer 5950 H* Sodium 136 Potassium 3.4 L Chloride 103 Carbon Dioxide 24 Anion Gap 9 BUN 8 Creatinine 0.87 Est Cr Clr Drug Dosing 89.3 Est GFR ( Amer) 88.8 Est GFR (Non-Af Amer) 76.6 BUN/Creatinine Ratio 9.2 L Glucose 115 H Calcium 9.0 Total Bilirubin 1.5 H AST 38 ALT 34 Alkaline Phosphatase 154 H Troponin I 0.12 H* Total Protein 7.4 Albumin 3.7 Globulin 3.7 Albumin/Globulin Ratio 1.0 Lipase 29 SARS-CoV-2, RNA, NAAT 01/21/22 10:44 WBC RBC Hgb Hct MCV MCH MCHC RDW Std Deviation RDW Coeff of Mitch Plt Count MPV Immature Gran % (Auto) Neut % (Auto) Lymph % (Auto) Wallace % (Auto) Eos % (Auto) Baso % (Auto) Neut # (Auto) Lymph # (Auto) Wallace # (Auto) Eos # (Auto) Baso # (Auto) Immature Gran # (Auto) D-Dimer Sodium Potassium Chloride Carbon Dioxide Anion Gap BUN Creatinine Est Cr Clr Drug Dosing Est GFR ( Amer) Est GFR (Non-Af Amer) BUN/Creatinine Ratio Glucose Calcium Total Bilirubin AST ALT Alkaline Phosphatase Troponin I Total Protein Albumin Globulin Albumin/Globulin Ratio Lipase SARS-CoV-2, RNA, NAAT NEGATIVE Diagnostic Findings Chest X-ray 01/21/22 - IMPRESSION: No acute cardiopulmonary findings. Venous Doppler Study 01/21/22 - IMPRESSION: No evidence of deep venous thrombus within the left lower extremity. CT Chest/Abd/Pel 01/21/22 - IMPRESSION: 1. There is no evidence of pulmonary embolus in the main, lobar, or segmental pulmonary arteries. 2. There is no airspace consolidation or pleural effusion. 3. Status post cholecystectomy. 4. There is infiltration and a multiloculated fluid collection in the gallbladder fossa extending along the inferior left lobe of the liver as detailed above. This could represent expected postoperative change such as a seroma/hematoma, a biloma, or possibly developing abscess. Clinical correlation will be essential. 5. Marked hepatosplenomegaly. 6. There are numerous mildly enlarged upper abdominal, retroperitoneal, and left iliac chain lymph nodes as above. These are indeterminant and may be reactive. These nodes are similar to the 2011 examination. Correlation with the patient's medical/oncological history will be required. 7. Wall thickening of the duodenum is likely related to adjacent inflammation/recent surgery. 8. Small volume abdominopelvic ascites. 9. Additional findings as above. Medications Administered Discontinued Medications Al Hydrox/Mg Hydrox/Simethicone (Gi Cocktail Ed Use) 1 dose PO ONE ONE Stop: 01/21/22 10:30 Last Admin: 01/21/22 10:45 Dose: 1 dose Documented by: [id number] Sodium Chloride (Nss 1000ml) 1,000 mls @ 999 mls/hr IV .Q1H1M STA Stop: 01/21/22 09:25 Last Infusion: 01/21/22 09:33 Dose: 0 mls/hr Documented by: [id number] Admin: 01/21/22 08:33 Dose: 999 mls/hr Documented by: [id number] Ioversol (Optiray 320 125ml) 119 ml IV ONCE ONE Stop: 01/21/22 11:06 Last Admin: 01/21/22 11:09 Dose: 119 ml Documented by: [id number] Code Status & VTE Plan VTE Prophylaxis Plan VTE Prophylaxis will be ordered: Yes Supervising Physician Co-Signing Physician Notes I have seen and examined the patient and have discussed the case with the provider above. I agree with the assessment and plan as stated with the following exceptions: 51 yo F s/p lap butch for symptomatic cholelithiasis on 01/16. She reports nausea immediately post-operatively and has not been tolerating food at home because of severe nausea. Today she developed pain in the central chest which she describes as consistent with previous heartburn episodes. It resolved completely with Maalox and she denied associated symptoms of ACS. She does report exertional dyspnea that is chronic. She reports asking the surgeon to stay in the hospital for an admission because she didn't feel well and reports she was told no because of insurance coverage. She then went home and progressively felt worse. She denies alisha pain in her abdomen but states "I just don't feel right. I am bloated." She has been having regular stool with no blood and one episode of loose stool after drinking coffee. She reports a low grade fever to 100.8F in the last 24 hours. Workup in the ER reveals no leukocytosis or fever and she is hemodynamically stable and is not ill-appearing. She is mentating and speaking clearly and does not have a guarded abdomen. Although abdomen is soft and nontender without distension, there is a difference in the tissue turgor in the RUQ with possible hepatomegaly. Well healing laparoscopic incisions are seen with steri-strips covering and no surrounding erythema or drainage. Cardiac exam is normal and she appears euvolemic. She is obese. Lungs are clear to auscultation throughout. Skin is warm and dry wihtout jaundice. BMP is normal and liver studies are WNL with a mildly elevated total bilirubin to 1.5. Baseline bilirubin is 0.5. AST and ALT are normal. Lipase is 29. Doppler of her legs reveals no DVT. Chest CTA reveals no PE or pneumonia. CT a/p revealsinfiltration and a multiloculated fluid collection in the gallbladder fossa extending along the inferior left lobe of the liver which could represent expected postoperative change such as a seroma/hematoma, a biloma, or possibly developing abscess. EKG does not reveal evidence of active ischemia. d-dimer is 5950 post-operatively. With ongoing nausea and inability to tolerate food there is concern she may be experiencing a post-operative complication. CT findings are suggestive of a multiloculated fluid collection, therefore, differential includes but is not limited to post-operative hematoma, seroma, abscess, or biliary leak. Although she has chronic ITP with a PLT level 87, she is not anemic or showing signs of active bleeding, making hematoma less likely. She has had a low grade fever which may indicate post-operative infection, however, at this time she is not septic or ill-appearing. Blood cultures have been drawn but would hold off on antibiotics until she shows signs of clinically worsening, or if surgery prefers this. Doubt cardiac cause for chest pain despite obvious risk factors including diabetes and obesity, given the fact that this resolved with Maalox. However, t roponin is elevated and will be trended with an echo for a complete evaluation. May consider cardiology consultation in am if needed based on findings overnight. Notably she has ITP and APLS, not put on aspirin for primary prophylaxis of thrombosis because of her low platelet level. This is per her substance abuse nurse. Given the elevated troponin and cardiac risk factors, would continue a daily baby aspirin for now. She did have a small amount of epistaxis in the ER, so would hold on additional prophylactic anticoagulation at this time. Appreciate surgical evaluation for the need for further intervention such as drainage or antibiotics and will continue to monitor on telemetry overnight. DO Jet
--- NOTE | 2022-01-21 13:50 | Communication Note ---
Date of Service: January 21, 2022 51 yo F s/p lap butch for symptomatic cholelithiasis on 01/16. She reports nausea immediately post-operatively and has not been tolerating food at home bec ause of severe nausea. Today she developed pain in the central chest which she describes as consistent with previous heartburn episodes. It resolved completely with Maalox and she denied associated symptoms of ACS. She does report exertional dyspnea that is chronic. She reports asking the surgeon to stay in the hospital for an admission because she didn't feel well and reports she was told no because of insurance coverage. She then went home and progressively felt worse. She denies alisha pain in her abdomen but states "I just don't feel right. I am bloated." She has been having regular stool with no blood and one episode of loose stool after drinking coffee. She reports a low grade fever to 100.8F in the last 24 hours. Workup in the ER reveals no leukocytosis or fever and she is hemodynamically stable and is not ill-appearing. She is mentating and speaking clearly and does not have a guarded abdomen. Although abdomen is soft and nontender without distension, there is a difference in the tissue turgor in the RUQ with possible hepatomegaly. Well healing laparoscopic incisions are seen with steri-strips covering and no surrounding erythema or drainage. Cardiac exam is normal and she appears euvolemic. She is obese. Lungs are clear to auscultation throughout. Skin is warm and dry wihtout jaundice. BMP is normal and liver studies are WNL with a mildly elevated total bilirubin to 1.5. Baseline bilirubin is 0.5. AST and ALT are normal. Lipase is 29. Doppler of her legs reveals no DVT. Chest CTA reveals no PE or pneumonia. CT a/p reveals infiltration and a multiloculated fluid collection in the gallbladder fossa extending along the inferior left lobe of the liver which could represent expected postoperative change such as a seroma/hematoma, a biloma, or possibly developing abscess. EKG does not reveal evidence of active ischemia. d-dimer is 5950 post-operatively. With ongoing nausea and inability to tolerate food there is concern she may be experiencing a post-operative complication. CT findings are suggestive of a multiloculated fluid collection, therefore, differential includes but is not limited to post-operative hematoma, seroma, abscess, or biliary leak. Although she has chronic ITP with a PLT level 87, she is not anemic or showing signs of active bleeding, making hematoma less likely. She has had a low grade fever whi ch may indicate post-operative infection, however, at this time she is not septic or ill-appearing. Blood cultures have been drawn but would hold off on antibiotics until she shows signs of clinically worsening, or if surgery prefers this. Doubt cardiac cause for chest pain despite obvious risk factors including diabetes and obesity, given the fact that this resolved with Maalox. However, troponin is elevated and will be trended with an echo for a complete evaluation. May consider cardiology consultation in am if needed based on findings overnight. Notably she has ITP and APLS, not put on aspirin for primary prophylaxis of thrombosis because of her low platelet level. This is per her signal person. Given the elevated troponin and cardiac risk factors, would continue a daily baby aspirin for now. She did have a small amount of epistaxis in the ER, so would hold on additional prophylactic anticoagulation at this time. Appreciate surgical evaluation for the need for further intervention such as drainage or antibiotics and will continue to monitor on telemetry overnight. DO Jet
[2022-01-21] MEDS ORDERED: POTASSIUM CHLORIDE CRTAB 20 MEQ TABCR PO STA (14:01)
--- NOTE | 2022-01-21 14:58 | Emergency Department Note ---
Impression & Plan Chest pain, Elevated troponin, Acute postoperative abdominal pain ED Provider Note INFORMANT: Patient ED PROVIDER(S): Smith Mcelroy MD CHIEF COMPLAINT: Chest pain PLAN: Disposition: Admitted Condition: Good Outpatient prescription management: none Referral: None MEDICAL DECISION MAKING: Patient presented to emergency room because of chest pain also noted a fever of 101 at home. She had some abdominal discomfort and was concerned about one of her trocar incisions. She just underwent gallbladder surgery. She had a rather benign abdomen and was afebrile on presentation. Her CBC was unremarkable. She was given a GI cocktail. She declined analgesia. The patient had a ECG that showed a normal sinus rhythm with poor R wave progression. There is no acute ST elevation or depression. She did have a swollen left leg and an ultrasound was performed and was negative. The patient's D-dimer was markedly elevated and she did have a mildly positive troponin. Because of the complaints and recent surgery she underwent a CT scan of the chest for PE as well as a CT scan of the abdomen pelvis with IV contrast. No PE was noted. No intrathoracic pathology was noted. The patient was found to have a fluid collection near the gallbladder fossa that was a possible seroma, biloma, hematoma, or developing abscess per radiology. The patient does not have a significant leukocytosis, anemia, or significant tenderness in that area. Abscess or hematoma seem less likely. Seems most consistent with a seroma given her recent surgery. The patient's elevated troponin concerning. On reassessment she was feeling well without any chest discomfort. I did consult with general surgery, Dr. Norton. We reviewed the findings and she was aware of the patient as she spoke to her prehospital. She recommended medicine admission and surgery can consult as necessary. I did discuss the case with the [facility]. The patient was evaluated in the ER for further management. Triage Nursing notes reviewed and agree them. Vital Signs: reviewed and remarkable for no significant abnormalities Differential diagnosis: Postoperative complication, cardiac ischemia, aortic dissection, pulmonary embolism, pneumothorax, pneumonia, pericarditis, myocarditis, esophageal rupture, GERD, cholecystitis, pancreatitis, musculoskeletal, as well as other pathologies. Diagnostics interpreted by me: ECG: Twelve-lead ECG reveals a normal sinus rhythm at 93 bpm. Left axis cindy ation present. Left atrial lodgment. Low voltage QRS with poor R wave progression noted. No ST elevation or depression. Cardiac Monitoring: Cardiac monitoring ordered by me: The patient was placed on continuous cardiac monitoring and observed. It revealed a normal sinus rhythm at 85 beats per minute without ectopy or evidence of dysrhythmia. Imaging studies: Chest x-ray. Findings: A chest x-ray was performed and revealed no pneumothorax, effusion, infiltrate, pulmonary edema, free air under the diaphragm, or wide mediastinum. Impression: No acute disease. CT scans as noted above. I refer you to the EMR for further details. HPI: The patient is a 51year old female who presents to the Emergency Room with complaints of chest pain, retrosternal This started this morning and is persisting. She feels like it may be reflux or gas The patient also notes the following associated symptoms, mild discomfort at her umbilical trocar site. Patient has been eating and drinking fluids. Patient is 6 days status post gallbladder surgery by Dr. Garcia. The patient has taken no medication for relieving factors. Current pain is rated as 2/10. Pt denies LOC, headache, chills, diaphoresis, visual changes, neck pain, breathing difficulties, vomiting, back pain, melena, hematochezia, urinary symptoms, numbness, weakness, lymphadenopathy, rash, or other complaints. ROS: See above HPI for pertinent positives & negatives. A total of 10 systems reviewed and were otherwise negative. PAST MEDICAL HISTORY:See Below , diabetes PAST SURGICAL HISTORY:See Below, cholecystectomy FAMILY HISTORY:See Below SOCIAL HISTORY:See Below, quit smoking HOME MEDICATIONS:See Below ALLERGIES:See Below VITALS:See Below PHYSICAL EXAMINATION: GENERAL: Awake, alert, well-appearing, in no distress HENT: Normocephalic, atraumatic. Oropharynx unremarkable. EYES: Normal conjunctiva. Sclera non-icteric. NECK: Inspection normal. Non-tender. Supple. No nuchal rigidity. FROM. No masses. RESPIRATORY: Clear to auscultation. No wheezes. No rales. Normal respiratory effort. CARDIAC: Normal rate. Normal rhythm. No murmurs. No rubs. Extremities warm and well perfused. Pulses equal. No JVD. GI: Soft, non-distended. Periumbilical tenderness to palpation. No rebound or guarding. No masses. Trocar sites are clean dry and intact without signs of infection. RECTAL: Deferred. MUSCULOSKELETAL: Atraumatic. Chest examination reveals no tenderness. The back is symmetrical on inspection without obvious abnormality. There is no CVA tenderness to palpation. No joint edema. LOWER EXTREMITIES: Left leg is larger than the right. Mild chronic venous discoloration present. No calf tenderness. NEURO: Normal sensorium. No sensory or motor deficits noted. SKIN: No rash or jaundice noted. 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 Chronic ITP (idiopathic thrombocytopenia) DX'D 2010-F/U [facility] Chronic obstructive pulmonary disease HX-LAST INHALER USE OVER 1 YEAR AGO DM type 2 (diabetes mellitus, type 2) Former tobacco use GERD (gastroesophageal reflux disease) History of COVID-19 PER PT-DX'D SUMMER 2020 [place]-FEVER, DRY COUGH, SEVERE HEADACHE, LOSS TASTE AND SMELL, FEVER, BODY ACHES-RECOVERED AT HOME-SYMPTOMS RESOLVED 12/2021 TESTED PRIOR TO SURGERY AT [facility]>+ AGAIN (LOSS OF TASTE AND SMELL/DRY COUGH) Hx of migraines Hyperlipidemia Hypothyroidism Surgical History History of bone marrow biopsy History of colonoscopy History of hysterectomy History of myringotomy History of tonsillectomy and adenoidectomy History of tooth extraction Family History Mother Diabetes Father Stroke Other No family history of adverse response to anesthesia Social History Smoking Status: Former smoker Tobacco Type: Cigarettes Second Hand Exposure: Yes ("SOMETIMES"); Hx Alcohol Use: Yes Alcohol type: wine Hx Substance Use: No Preferred Language: Armenian Communication Ability: Effective Bottle House Quality Control Technician Required: No Beliefs That Will Affect Care: None Current Living Situation: Significant Other Current Living Situation Comment: LIVES WITH S[facility]AGE current occupation: DOES NOT WORK Feels Safe at Home: Yes Assistive Devices: Denture - Upper, Denture - Lower and Glasses Allergies Allergies Allergy/AdvReac Type Severity Reaction Status Date / Time codeine Allergy Intermediate Hives Verified 01/21/22 10:37 Home Meds Home Medications Medication Instructions Recorded Confirmed pantoprazole 40 mg tablet,delayed 40 mg PO QAM 07/18/18 01/21/22 release (Protonix) simvastatin 20 mg tablet (Zocor) 20 mg PO HS 07/18/18 01/21/22 acetaminophen 500 mg tablet 500 - 1,000 mg PO Q6H PRN 09/14/19 01/21/22 (Tylenol Extra Strength) levothyroxine 25 mcg tablet 25 mcg PO QAM 09/14/19 01/21/22 (Synthroid) multivitamin 1 tab PO QAM 09/14/19 01/21/22 Lactobacillus acidophilus 1.5 mg 1,000 mmu cells PO QAM 05/23/21 01/21/22 (250 million cell) capsule (Probiotic Acidophilus) metformin 500 mg tablet 500 mg PO QAM 05/23/21 01/21/22 diphenhydramine HCl 25 mg capsule 25 mg PO HS PRN 11/24/21 01/21/22 (Benadryl) Results & Data (ED) Vital Signs Vital Signs - 24 hr 01/21/22 08:05 01/21/22 08:33 01/21/22 09:52 Temperature 36.9 C Temperature Source Oral Pulse Rate 102 H Pulse Rate [Apical] 83 Respiratory Rate 16 16 Respiratory Effort / Characteristics Respiratory Depth Blood Pressure 142/96 H Blood Pressure [Right Arm] 117/74 Blood Pressure Mean 111 Blood Pressure Mean [Right Arm] 88 Pulse Oximetry 97 98 Oxygen Delivery Method Room Air Room Air Room Air Sepsis Recent Fever Within 48 Hours No Sepsis New/Unexplained Change in Mental Status No Sepsis Action Taken by Nursing No Action Required 01/21/22 11:15 Temperature Temperature Source Pulse Rate Pulse Rate [Apical] 82 Respiratory Rate 20 Respiratory Effort / Characteristics Non-Labored Spontaneous Respiratory Depth Normal Blood Pressure Blood Pressure [Right Arm] 134/53 L Blood Pressure Mean Blood Pressure Mean [Right Arm] 80 Pulse Oximetry 95 Oxygen Delivery Method Room Air Sepsis Recent Fever Within 48 Hours Sepsis New/Unexplained Change in Mental Status Sepsis Action Taken by Nursing Laboratory Data Result diagrams: 01/21/22 08:30 01/21/22 08:30 Lab Results 01/21/22 01/21/22 01/21/22 Range/Units 08:30 08:30 09:03 WBC 6.25 (4.8-10.8) K/uL RBC 3.82 L (4.2-5.4) M/uL Hgb 12.2 (12.0-16.0) g/dL Hct 34.4 L (37-47) % MCV 90.1 (80-100) fL MCH 31.9 (25-34) pg MCHC 35.5 (32-36) g/dL RDW Std Deviation 45.8 (36.4-46.3) fL RDW Coeff of Mitch 13.8 (11.5-14.5) % Plt Count 87 L (130-400) K/uL MPV 9.5 (7.4-10.4) fL Immature Gran % (Auto) 0.2 % Neut % (Auto) 77.4 % Lymph % (Auto) 12.3 % Ballard % (Auto) 9.3 % Eos % (Auto) 0.6 % Baso % (Auto) 0.2 % Neut # (Auto) 4.84 (1.4-6.5) K/uL Lymph # (Auto) 0.77 L (1.2-3.4) K/uL Ballard # (Auto) 0.58 (0.11-0.59) K/uL Eos # (Auto) 0.04 (0-0.5) K/uL Baso # (Auto) 0.01 (0-0.2) K/uL Immature Gran # (Auto) 0.01 (0.00-0.02) K/uL D-Dimer 5950 H* (0-500) ug/L FEU Sodium 136 (136-145) mmol/L Potassium 3.4 L (3.5-5.1) mmol/L Chloride 103 (98-107) mmol/L Carbon Dioxide 24 (21-32) mmol/L Anion Gap 9 (3-11) BUN 8 (6-23) mg/dl Creatinine 0.87 (0.6-1.2) mg/dl Est Cr Clr Drug Dosing 89.3 ml/min Est GFR ( Amer) 88.8 ml/min Est GFR (Non-Af Amer) 76.6 ml/min BUN/Creatinine Ratio 9.2 L (10-20) Glucose 115 H (70-99(Fasting)) mg/dl Calcium 9.0 (8.5-10.1) mg/dl Total Bilirubin 1.5 H (0.2-1.0) mg/dl AST 38 (13-39) U/L ALT 34 (7-52) U/L Alkaline Phosphatase 154 H (34-104) U/L Troponin I 0.12 H* (0-0.04) ng/ml Total Protein 7.4 (6.0-8.3) gm/dl Albumin 3.7 (3.4-5.0) gm/dl Globulin 3.7 (2.5-4.0) gm/dl Albumin/Globulin Ratio 1.0 (0.9-2) Lipase 29 (11-82) U/L SARS-CoV-2, RNA, NAAT (NEGATIVE) 01/21/22 Range/Units 10:44 WBC (4.8-10.8) K/uL RBC (4.2-5.4) M/uL Hgb (12.0-16.0) g/dL Hct (37-47) % MCV (80-100) fL MCH (25-34) pg MCHC (32-36) g/dL RDW Std Deviation (36.4-46.3) fL RDW Coeff of Mitch (11.5-14.5) % Plt Count (130-400) K/uL MPV (7.4-10.4) fL Immature Gran % (Auto) % Neut % (Auto) % Lymph % (Auto) % Ballard % (Auto) % Eos % (Auto) % Baso % (Auto) % Neut # (Auto) (1.4-6.5) K/uL Lymph # (Auto) (1.2-3.4) K/uL Ballard # (Auto) (0.11-0.59) K/uL Eos # (Auto) (0-0.5) K/uL Baso # (Auto) (0-0.2) K/uL Immature Gran # (Auto) (0.00-0.02) K/uL D-Dimer (0-500) ug/L FEU Sodium (136-145) mmol/L Potassium (3.5-5.1) mmol/L Chloride (98-107) mmol/L Carbon Dioxide (21-32) mmol/L Anion Gap (3-11) BUN (6-23) mg/dl Creatinine (0.6-1.2) mg/dl Est Cr Clr Drug Dosing ml/min Est GFR ( Amer) ml/min Est GFR (Non-Af Amer) ml/min BUN/Creatinine Ratio (10-20) Glucose (70-99(Fasting)) mg/dl Calcium (8.5-10.1) mg/dl Total Bilirubin (0.2-1.0) mg/dl AST (13-39) U/L ALT (7-52) U/L Alkaline Phosphatase (34-104) U/L Troponin I (0-0.04) ng/ml Total Protein (6.0-8.3) gm/dl Albumin (3.4-5.0) gm/dl Globulin (2.5-4.0) gm/dl Albumin/Globulin Ratio (0.9-2) Lipase (11-82) U/L SARS-CoV-2, RNA, NAAT NEGATIVE (NEGATIVE) Administered Medications Discontinued Medications Al Hydrox/Mg Hydrox/Simethicone (Gi Cocktail Ed Use) 1 dose PO ONE ONE Stop: 01/21/22 10:30 Last Admin: 01/21/22 10:45 Dose: 1 dose Documented by: [id number] Sodium Chloride (Nss 1000ml) 1,000 mls @ 999 mls/hr IV .Q1H1M STA Stop: 01/21/22 09:25 Last Infusion: 01/21/22 09:33 Dose: 0 mls/hr Documented by: [id number] Admin: 01/21/22 08:33 Dose: 999 mls/hr Documented by: [id number] Ioversol (Optiray 320 125ml) 119 ml IV ONCE ONE Stop: 01/21/22 11:06 Last Admin: 01/21/22 11:09 Dose: 119 ml Documented by: [id number] Potassium Chloride (Potassium Chloride Crtab 20 Meq Tabcr) 40 meq PO NOW STA Stop: 01/21/22 14:02 Last Admin: 01/21/22 14:43 Dose: 40 meq Documented by: [id number] Imaging Data Radiologist's Impression: Chest X-Ray 01/21/22 08:25 XR chest 1V portable CLINICAL HISTORY: Atypical chest pain. COMPARISON STUDY: Chest radiograph June 25, 2021. FINDINGS: Lung volumes are normal. Lungs are clear. There is no pneumothorax or pleural effusion. Cardiac size is stable. Mediastinal contours are normal. There is no evidence for pulmonary edema. IMPRESSION: No acute cardiopulmonary findings. ACT 112: Negative or not required by law. Electronically signed by: Laith Gold M.D. 01/21/2022 8:39 AM Venous Doppler Study 01/21/22 08:50 LEFT LOWER EXTREMITY VENOUS DOPPLER CLINICAL HISTORY: swelling, recent surgery COMPARISON STUDY: No previous studies for comparison. TECHNIQUE: Sonography of the deep venous system of the left lower extremity was performed. Compression and augmentation were evaluated. FINDINGS: The left common femoral, superficial femoral and popliteal veins were compressible. Augmentation was normal. Flow was shown within the deep calf vessels. IMPRESSION: No evidence of deep venous thrombus within the left lower extremity. ACT 112: Negative or not required by law. Electronically signed by: Laith Gold M.D. 01/21/2022 10:10 AM Abdomen/Pelvis CT 01/21/22 10:13 CT ANGIOGRAM OF THE CHEST; CT SCAN OF THE ABDOMEN AND PELVIS WITH IV CONTRAST CLINICAL HISTORY: Pain. Mid abdominal pain. Elevated d-dimer. Recent cholecystectomy. COMPARISON STUDY: Chest x-ray dated 01/21/2022. Abdominal CT dated 05/21/2011. TECHNIQUE: Following the IV administration of 119 of Optiray 320, CT angiogram of the chest is performed from the upper abdomen to the thoracic inlet utilizing the pulmonary embolus protocol. Images are reviewed in the axial, sagittal, coronal planes. 3-D MIPS images are created and assessed. Subsequently, CT scan of the abdomen and pelvis was performed from the lung bases to the proximal femora. Images are reviewed in the axial, sagittal, and coronal planes. IV contrast was administered without complication. A dose lowering technique was utilized adhering to the principles of ALARA. CT DOSE: 1594.76 mGy.cm FINDINGS: CHEST: Thyroid: Imaged portions of the thyroid gland are normal in size and attenuation. Thoracic aorta: The thoracic aorta is normal in caliber and demonstrates 4- vessel variant arch anatomy. No dissection is seen. Pulmonary vasculature: The pulmonary trunk is dilated, measuring 3.4 cm in di ameter. This suggests pulmonary artery hypertension.. There are no filling defects identified in the main, lobar, or segmental pulmonary arteries to indicate pulmonary embolus. Heart: The heart is normal in size and without pericardial effusion. The coronary arteries are densely calcified. Lungs and pleural spaces: A fat-containing Bochdalek hernia is noted at the right lung base. There is no airspace consolidation or pleural effusion. The trachea and central airways are clear. Mediastinum: There is no mediastinal lymphadenopathy. Daya: Clear. Axillae: There are shotty axillary lymph nodes. Bony thorax: No lytic or blastic lesions are identified. ABDOMEN AND PELVIS: Liver: The contrast-enhanced liver is enlarged, measuring 21.6 cm in length. The liver is otherwise normal in contour and attenuation. There is no intrahepatic or ductal dilatation. The hepatic veins and portal veins are patent. Gallbladder: The gallbladder surgically absent noting clips in the gallbladder fossa. There is infiltration identified throughout the gallbladder fossa. There is a multiloculated fluid collection in the gallbladder fossa and along the inferior left lobe of the liver. This is best seen on axial image #171. The loculation in the gallbladder fossa measures approximately 4 x 4 x 2 cm as seen on image #169, and the loculation along the inferior left lobe of the liver measures approximately 7 x 4.5 x 2.5 cm. This is best seen on image #174. Spleen: The spleen is markedly enlarged measuring 20.3 cm in length. Pancreas: Unremarkable. Adrenal glands: Unremarkable. Kidneys: The contrast enhanced kidneys are normal in size and without hydronephr osis. The kidneys enhance symmetrically. Abdominal vasculature: The abdominal aorta is normal in course and caliber noting moderate atherosclerotic calcification. Bowel: There is mild colonic diverticulosis without CT evidence of acute diverticulitis. No bowel obstruction is identified. Wall thickening of the duodenum is likely related to recent surgery. The appendix is nonvisualized. Peritoneum: No intraperitoneal free air is identified. There is trace fluid in the paracolic gutters and pelvis. There is a fat-containing umbilical hernia. Pericolic induration and gas is likely related to recent surgery. Lymphadenopathy: There are numerous mildly enlarged upper abdominal lymph nodes. Gastrohepatic nodes measure up to 1.4 cm in short axis. There are numerous mildly enlarged retroperitoneal lymph nodes which measure up to 1.3 cm in short axis. A left iliac chain node on image #309 measures 2.0 x 1.3 cm, and the left external iliac chain node on image #357 measures 2.8 x 1.3 cm. No inguinal adenopathy is identified. Pelvic viscera: The bladder is normal as visualized. The uterus is surgically absent. No adnexal lesion is identified. Skeletal structures: No lytic or blastic lesions are seen. There is mild lumbosacral spondylosis. Sclerotic change is noted in the sacroiliac joints. IMPRESSION: 1. There is no evidence of pulmonary embolus in the main, lobar, or segmental pulmonary arteries. 2. There is no airspace consolidation or pleural effusion. 3. Status post cholecystectomy. 4. There is infiltration and a multiloculated fluid collection in the gallbladder fossa extending along the inferior left lobe of the liver as detailed above. This could represent expected postoperative change such as a seroma/hematoma, a biloma, or possibly developing abscess. Clinical correlation will be essential. 5. Marked hepatosplenomegaly. 6. There are numerous mildly enlarged upper abdominal, retroperitoneal, and left iliac chain lymph nodes as above. These are indeterminant and may be reactive. These nodes are similar to the 2011 examination. Correlation with the patient's medical/oncological history will be required. 7. Wall thickening of the duodenum is likely related to adjacent inflammation/recent surgery. 8. Small volume abdominopelvic ascites. 9. Additional findings as above. ACT 112: Negative or not required by law. Electronically signed by: Chris Landry M.D. 01/21/2022 11:56 AM Chest CTA 01/21/22 10:13 CT ANGIOGRAM OF THE CHEST; CT SCAN OF THE ABDOMEN AND PELVIS WITH IV CONTRAST CLINICAL HISTORY: Pain. Mid abdominal pain. Elevated d-dimer. Recent cholecystectomy. COMPARISON STUDY: Chest x-ray dated 01/21/2022. Abdominal CT dated 05/21/2011. TECHNIQUE: Following the IV administration of 119 of Optiray 320, CT angiogram of the chest is performed from the upper abdomen to the thoracic inlet utilizing the pulmonary embolus protocol. Images are reviewed in the axial, sagittal, coronal planes. 3-D MIPS images are created and assessed. Subsequently, CT scan of the abdomen and pelvis was performed from the lung bases to the proximal femora. Images are reviewed in the axial, sagittal, and coronal planes. IV contrast was administered without complication. A dose lowering technique was utilized adhering to the principles of ALARA. CT DOSE: 1594.76 mGy.cm FINDINGS: CHEST: Thyroid: Imaged portions of the thyroid gland are normal in size and attenuation. Thoracic aorta: The thoracic aorta is normal in caliber and demonstrates 4- vessel variant arch anatomy. No dissection is seen. Pulmonary vasculature: The pulmonary trunk is dilated, measuring 3.4 cm in diameter. This suggests pulmonary artery hypertension.. There are no filling defects identified in the main, lobar, or segmental pulmonary arteries to indicate pulmonary embolus. Heart: The heart is normal in size and without pericardial effusion. The coronary arteries are densely calcified. Lungs and pleural spaces: A fat-containing Bochdalek hernia is noted at the right lung base. There is no airspace consolidation or pleural effusion. The trachea and central airways are clear. Mediastinum: There is no mediastinal lymphadenopathy. Daya: Clear. Axillae: There are shotty axillary lymph nodes. Bony thorax: No lytic or blastic lesions are identified. ABDOMEN AND PELVIS: Liver: The contrast-enhanced liver is enlarged, measuring 21.6 cm in length. The liver is otherwise normal in contour and attenuation. There is no intrahepatic or ductal dilatation. The hepatic veins and portal veins are patent. Gallbladder: The gallbladder surgically absent noting clips in the gallbladder fossa. There is infiltration identified throughout the gallbladder fossa. There is a multiloculated fluid collection in the gallbladder fossa and along the inferior left lobe of the liver. This is best seen on axial image #171. The loculation in the gallbladder fossa measures approximately 4 x 4 x 2 cm as seen on image #169, and the loculation along the inferior left lobe of the liver measures approximately 7 x 4.5 x 2.5 cm. This is best seen on image #174. Spleen: The spleen is markedly enlarged measuring 20.3 cm in length. Pancreas: Unremarkable. Adrenal glands: Unremarkable. Kidneys: The contrast enhanced kidneys are normal in size and without hydronephrosis. The kidneys enhance symmetrically. Abdominal vasculature: The abdominal aorta is normal in course and caliber noting moderate atherosclerotic calcification. Bowel: There is mild colonic diverticulosis without CT evidence of acute diverticulitis. No bowel obstruction is identified. Wall thickening of the duodenum is likely related to recent surgery. The appendix is nonvisualized. Peritoneum: No intraperitoneal free air is identified. There is trace fluid in the paracolic gutters and pelvis. There is a fat-containing umbilical hernia. Pericolic induration and gas is likely related to recent surgery. Lymphadenopathy: There are numerous mildly enlarged upper abdominal lymph nodes. Gastrohepatic nodes measure up to 1.4 cm in short axis. There are numerous mildly enlarged retroperitoneal lymph nodes which measure up to 1.3 cm in short axis. A left iliac chain node on image #309 measures 2.0 x 1.3 cm, and the left external iliac chain node on image #357 measures 2.8 x 1.3 cm. No inguinal adenopathy is identified. Pelvic viscera: The bladder is normal as visualized. The uterus is surgically absent. No adnexal lesion is identified. Skeletal structures: No lytic or blastic lesions are seen. There is mild lumbosacral spondylosis. Sclerotic change is noted in the sacroiliac joints. IMPRESSION: 1. There is no evidence of pulmonary embolus in the main, lobar, or segmental pulmonary arteries. 2. There is no airspace consolidation or pleural effusion. 3. Status post cholecystectomy. 4. There is infiltration and a multiloculated fluid collection in the gallbladder fossa extending along the inferior left lobe of the liver as detailed above. This could represent expected postoperative change such as a seroma/hematoma, a biloma, or possibly developing abscess. Clinical correlation will be essential. 5. Marked hepatosplenomegaly. 6. There are numerous mildly enlarged upper abdominal, retroperitoneal, and left iliac chain lymph nodes as above. These are indeterminant and may be reactive. These nodes are similar to the 2011 examination. Correlation with the patient's medical/oncological history will be required. 7. Wall thickening of the duodenum is likely related to adjacent inflammation/recent surgery. 8. Small volume abdominopelvic ascites. 9. Additional findings as above. ACT 112: Negative or not required by law. Electronically signed by: Chris Landry M.D. 01/21/2022 11:56 AM Discharge Plan Visit Data Chief Complaint: Chest Pain Stated Complaint: CHEST PRESSURE ED Provider: Smith Mcelroy Discharge Problem: Chest pain, Elevated troponin, Acute postoperative abdominal pain
[2022-01-21 15:07] LABS: Appearance Urine Clear (Clear); Bacteria Urine Automated Negative (Negative); Blood Urine 2+ (Negative); Color Urine Dark Yellow; Glucose Urine UA Negative (Negative); Ketones Urine Trace (Negative); Leukocyte Esterase Urine Negative (Negative); Nitrite Urine Negative (Negative); Protein Urine 1+ (Negative); Specific Gravity Urine > 1.045 (1.000-1.030); Urobilinogen Urine Positive (Negative)
[2022-01-21 15:08] LABS: Bilirubin Urine 1+ (Negative)
[2022-01-21] MEDS ORDERED: SODIUM CHLORIDE 0.65% NA SOLN 45 ML (OCEAN) PRN (15:25)
[2022-01-21] MEDS ORDERED: GLUCOSE 40% GEL 15 GM TUBE PO PRN (15:25)
[2022-01-21] MEDS ORDERED: GLUCOSE 10 TABS/TUBE PO PRN (15:25)
[2022-01-21] MEDS ORDERED: CARBOHYDRATES FOR HYPOGLYCEMIA PO PRN (15:25)
[2022-01-21] MEDS ORDERED: GLUCAGON FOR INJ 1 MG VIAL SQ PRN (15:25)
[2022-01-21] MEDS ORDERED: DEXTROSE 50% 50 ML SYRINGE IV PRN (15:25)
[2022-01-21] MEDS ORDERED: diphenhydrAMINE Capsule 25 MG CAP PO PRN (15:25)
[2022-01-21] MEDS: INSULIN ASPART PER UNIT SC SCH ×2 (17:19→20:43)
--- NOTE | 2022-01-21 17:51 | Surgery Consultation ---
Date of Consultation January 21, 2022 Assessment & Plan (1) Status post cholecystectomy: notes fever and persistent nausea. CT scan shows fluid within the gallbladder fossa and adjacent to the liver which could just be postsurgical or could represent early infection. Given the fever, I think it is reasonable to start her on antibiotics. Suspicion for a bile leak is low given that she is having bowel movements with no real peritoneal signs on exam. From my standpoint, it is okay to advance diet as tolerated. Should her abdominal symptoms worsen, a HIDA scan may be indicated to rule out bile leak. Thank you (2) Chest pain: workup as per medicine History of Present Illness Reason for Consultation: abdominal pain and nausea following lap butch Requesting Physician: Aliza Chaudhary DO Attending Physician: Aliza Chaudhary DO History of Present Illness 51-year-old woman who is status post a laparoscopic cholecystectomy by Dr. Choi about 6 days ago. Initially she did well but then started to develop a fever up to 103 at home. She also noticed nausea which was worse after eating to sweet potatoes. The nausea has persisted. She does note normal bowel movements with her last bowel movement being yesterday. She has pain around the area of the umbilicus. She denies any right upper quadrant or epigastric pain. Given the elevation of her temperature, she was concerned and came to the ER for evaluation. She was found to have mildly elevated troponins. She has been admitted for a work-up to rule out a cardiac event. Allergies Allergy/AdvReac Type Severity Reaction Status Date / Time codeine Allergy Intermediate Hives Verified 01/21/22 10:37 Home Medications Medication Instructions Recorded Confirmed Type pantoprazole 40 mg tablet,delayed 40 mg PO QAM 07/18/18 01/21/22 History release (Protonix) simvastatin 20 mg tablet (Zocor) 20 mg PO HS 07/18/18 01/21/22 History acetaminophen 500 mg tablet 500 - 1,000 mg PO Q6H PRN 09/14/19 01/21/22 History (Tylenol Extra Strength) levothyroxine 25 mcg tablet 25 mcg PO QAM 09/14/19 01/21/22 History (Synthroid) multivitamin 1 tab PO QAM 09/14/19 01/21/22 History Lactobacillus acidophilus 1.5 mg 1,000 mmu cells PO QAM 05/23/21 01/21/22 History (250 million cell) capsule (Probiotic Acidophilus) metformin 500 mg tablet 500 mg PO QAM 05/23/21 01/21/22 History diphenhydramine HCl 25 mg capsule 25 mg PO HS PRN 11/24/21 01/21/22 History (Benadryl) Patient History Medical History Anxiety APL (antiphospholipid syndrome) 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 Chronic ITP (idiopathic thrombocytopenia) DX'D 2010-F/U DR [facility]ATA[facility] Chronic obstructive pulmonary disease HX-LAST INHALER USE OVER 1 YEAR AGO DM type 2 (diabetes mellitus, type 2) Former tobacco use GERD (gastroesophageal reflux disease) History of COVID-19 PER PT-DX'D SUMMER 2020 [facility]-FEVER, DRY COUGH, SEVERE HEADACHE, LOSS TASTE AND SMELL, FEVER, BODY ACHES-RECOVERED AT HOME-SYMPTOMS RESOLVED 12/2021 TESTED PRIOR TO SURGERY AT [facility]>+ AGAIN (LOSS OF TASTE AND SMELL/DRY COUGH) Hx of migraines Hyperlipidemia Hypothyroidism Surgical History History of bone marrow biopsy History of colonoscopy History of hysterectomy History of myringotomy History of tonsillectomy and adenoidectomy History of tooth extraction Family History Mother Diabetes Father Stroke Other No family history of adverse response to anesthesia Social History Smoking Status: Former smoker Tobacco Type: Cigarettes Cigarettes Per Day: 1 ppd; Smoking End Date: 2018; Second Hand Exposure: No; Do You Dip or Chew Tobacco: No; Hx Alcohol Use: Yes Alcohol type: wine Hx Substance Use: Yes Last Used Substance Other:: No current use, over 10 years ago Preferred Language: Khmer Communication Ability: Effective Coil Shaper Required: No Beliefs That Will Affect Care: None Current Living Situation: Significant Other Current Living Situation Comment: LIVES WITH [facility] current occupation: DOES NOT WORK Other Information That Helps Us Care for You: No Feels Safe at Home: Yes Safety Concerns: Feels Safe At This Time Assistive Devices: Denture - Upper, Denture - Lower and Glasses Review of Systems Review of Systems: All systems reviewed & are unremarkable except as noted in HPI & below Physical Exam Constitutional: WD/WN, vitals as above Eyes: PERRL, conjunctivae normal, anicteric sclerae ENMT: external ear and nose normal, oropharynx normal Respiratory: normal respiratory effort, lungs clear to auscultation Cardiovascular: RRR, no murmur, no edema Gastrointestinal (Abdomen): Inspection/Auscultation: abdomen normal to inspection and normal bowel sounds; abdomen not distended Percussion/Palpation: + abdomen tender (at umbilical incision) and abdomen soft; no guarding incisions clean Musculoskeletal: Extremities: extremities normal to inspection Gait: normal gait Neurologic: awake; no focal motor deficits Psychiatric: A+Ox3, euthymic affect Results & Data ([facility]) Vital Signs (Past 12 Hours) Vital Signs Temp Pulse Pulse Resp BP BP Pulse Ox 01/21/22 15:46 36.7 C 80 20 119/76 97 01/21/22 15:11 82 01/21/22 14:45 85 22 116/75 97 01/21/22 11:15 82 20 134/53 L 95 01/21/22 09:52 83 16 117/74 98 01/21/22 08:05 36.9 C 102 H 16 142/96 H 97 Laboratory Results Abnormal lab results 01/21/22 01/21/22 01/21/22 Range/Units 08:30 08:30 09:03 RBC 3.82 L (4.2-5.4) M/uL Hct 34.4 L (37-47) % Plt Count 87 L (130-400) K/uL Lymph # (Auto) 0.77 L (1.2-3.4) K/uL D-Dimer 5950 H* (0-500) ug/L FEU Potassium 3.4 L (3.5-5.1) mmol/L BUN/Creatinine Ratio 9.2 L (10-20) Glucose 115 H (70-99(Fasting)) mg/dl POC Glucose (70-99) mg/dl Total Bilirubin 1.5 H (0.2-1.0) mg/dl Alkaline Phosphatase 154 H (34-104) U/L Troponin I 0.12 H* (0-0.04) ng/ml Ur Specific [place] (1.000-1.030) Urine Protein (Negative) Urine Ketones (Negative) Urine Blood (Negative) Urine Bilirubin (Negative) Urine Urobilinogen (Negative) Urine RBC (Auto) (0-4) /hpf U Epithel Cells (Auto) (0-5) /lpf 01/21/22 01/21/22 01/21/22 Range/Units 14:48 15:25 16:40 RBC (4.2-5.4) M/uL Hct (37-47) % Plt Count (130-400) K/uL Lymph # (Auto) (1.2-3.4) K/uL D-Dimer (0-500) ug/L FEU Potassium (3.5-5.1) mmol/L BUN/Creatinine Ratio (10-20) Glucose (70-99(Fasting)) mg/dl POC Glucose 112 H (70-99) mg/dl Total Bilirubin (0.2-1.0) mg/dl Alkaline Phosphatase (34-104) U/L Troponin I 0.12 H* (0-0.04) ng/ml Ur Specific [place] > 1.045 H (1.000-1.030) Urine Protein 1+ H (Negative) Urine Ketones Trace H (Negative) Urine Blood 2+ H (Negative) Urine Bilirubin 1+ H (Negative) Urine Urobilinogen Positive H (Negative) Urine RBC (Auto) 10-30 H (0-4) /hpf U Epithel Cells (Auto) 10-20 H (0-5) /lpf Diagnostic Findings CT ANGIOGRAM OF THE CHEST; CT SCAN OF THE ABDOMEN AND PELVIS WITH IV CONTRAST CLINICAL HISTORY: Pain. Mid abdominal pain. Elevated d-dimer. Recent cholecystectomy. COMPARISON STUDY: Chest x-ray dated 01/21/2022. Abdominal CT dated 05/21/2011. TECHNIQUE: Following the IV administration of 119 of Optiray 320, CT angiogram of the chest is performed from the upper abdomen to the thoracic inlet utilizing the pulmonary embolus protocol. Images are reviewed in the axial, sagittal, coronal planes. 3-D MIPS images are created and assessed. Subsequently, CT scan of the abdomen and pelvis was performed from the lung bases to the proximal femora. Images are reviewed in the axial, sagittal, and coronal planes. IV contrast was administered without complication. A dose lowering technique was utilized adhering to the principles of ALARA. CT DOSE: 1594.76 mGy.cm FINDINGS: CHEST: Thyroid: Imaged portions of the thyroid gland are normal in size and attenuation. Thoracic aorta: The thoracic aorta is normal in caliber and demonstrates 4- vessel variant arch anatomy. No dissection is seen. Pulmonary vasculature: The pulmonary trunk is dilated, measuring 3.4 cm in diameter. This suggests pulmonary artery hypertension.. There are no filling defects identified in the main, lobar, or segmental pulmonary arteries to indicate pulmonary embolus. Heart: The heart is normal in size and without pericardial effusion. The cor onary arteries are densely calcified. Lungs and pleural spaces: A fat-containing Bochdalek hernia is noted at the right lung base. There is no airspace consolidation or pleural effusion. The trachea and central airways are clear. Mediastinum: There is no mediastinal lymphadenopathy. Daya: Clear. Axillae: There are shotty axillary lymph nodes. Bony thorax: No lytic or blastic lesions are identified. ABDOMEN AND PELVIS: Liver: The contrast-enhanced liver is enlarged, measuring 21.6 cm in length. The liver is otherwise normal in contour and attenuation. There is no intrahepatic or ductal dilatation. The hepatic veins and portal veins are patent. Gallbladder: The gallbladder surgically absent noting clips in the gallbladder fossa. There is infiltration identified throughout the gallbladder fossa. There is a multiloculated fluid collection in the gallbladder fossa and along the inferior left lobe of the liver. This is best seen on axial image #171. The loculation in the gallbladder fossa measures approximately 4 x 4 x 2 cm as seen on image #169, and the loculation along the inferior left lobe of the liver measures approximately 7 x 4.5 x 2.5 cm. This is best seen on image #174. Spleen: The spleen is markedly enlarged measuring 20.3 cm in length. Pancreas: Unremarkable. Adrenal glands: Unremarkable. Kidneys: The contrast enhanced kidneys are normal in size and without hy dronephrosis. The kidneys enhance symmetrically. Abdominal vasculature: The abdominal aorta is normal in course and caliber noting moderate atherosclerotic calcification. Bowel: There is mild colonic diverticulosis without CT evidence of acute diverticulitis. No bowel obstruction is identified. Wall thickening of the duodenum is likely related to recent surgery. The appendix is nonvisualized. Peritoneum: No intraperitoneal free air is identified. There is trace fluid in the paracolic gutters and pelvis. There is a fat-containing umbilical hernia. Pericolic induration and gas is likely related to recent surgery. Lymphadenopathy: There are numerous mildly enlarged upper abdominal lymph nodes. Gastrohepatic nodes measure up to 1.4 cm in short axis. There are numerous mildly enlarged retroperitoneal lymph nodes which measure up to 1.3 cm in short axis. A left iliac chain node on image #309 measures 2.0 x 1.3 cm, and the left external iliac chain node on image #357 measures 2.8 x 1.3 cm. No inguinal adenopathy is identified. Pelvic viscera: The bladder is normal as visualized. The uterus is surgically absent. No adnexal lesion is identified. Skeletal structures: No lytic or blastic lesions are seen. There is mild lumbosacral spondylosis. Sclerotic change is noted in the sacroiliac joints. IMPRESSION: 1. There is no evidence of pulmonary embolus in the main, lobar, or segmental pulmonary arteries. 2. There is no airspace consolidation or pleural effusion. 3. Status post cholecystectomy. 4. There is infiltration and a multiloculated fluid collection in the gallbladde r fossa extending along the inferior left lobe of the liver as detailed above. This could represent expected postoperative change such as a seroma/hematoma, a biloma, or possibly developing abscess. Clinical correlation will be essential. 5. Marked hepatosplenomegaly. 6. There are numerous mildly enlarged upper abdominal, retroperitoneal, and left iliac chain lymph nodes as above. These are indeterminant and may be reactive. These nodes are similar to the 2011 examination. Correlation with the patient's medical/oncological history will be required. 7. Wall thickening of the duodenum is likely related to adjacent inflammation/recent surgery. 8. Small volume abdominopelvic ascites. 9. Additional findings as above.
[2022-01-21] MEDS: FAMOTIDINE 20 MG in SYRINGE 3 ML IV PRN (19:05)
[2022-01-21] MEDS: SIMVASTATIN 20 MG TAB PO SCH (20:43)
[2022-01-21] MEDS: ACETAMINOPHEN 325 MG TAB PO PRN (20:43)
[2022-01-21] MEDS ORDERED: PIPERACILL/TAZOBAC CONSULT ACTIVE PRN (22:58)
[2022-01-21] MEDS ORDERED: PIPERACILLIN/TAZOBACTAM 4.5 GM in DEXTROSE 5% 100 ML IV ONE (23:15)
[2022-01-22] MEDS: PANTOprazole 40 MG TAB PO SCH (06:03)
[2022-01-22] MEDS: PIPERACILLIN/TAZOBACTAM 3.375 GM in DEXTROSE 5% 100 ML IV SCH ×3 (06:04→21:03)
[2022-01-22] MEDS: LEVOTHYROXINE SODIUM 25 MCG TABLET PO SCH (06:04)
[2022-01-22] MEDS: ACETAMINOPHEN 325 MG TAB PO PRN ×2 (06:28→14:54)
[2022-01-22 06:43] LABS: Albumin Globulin Ratio 0.9 (0.9-2); Albumin Level 3.4 gm/dl (3.4-5.0); Calcium 8.7 mg/dl (8.5-10.1); Creatinine Clr Calc Pharmacy 77.6 ml/min; Est GFR (Non-African American) 64.7 ml/min; Globulin 3.9 gm/dl (2.5-4.0); Potassium 3.8 mmol/L (3.5-5.1); Total Protein 7.3 gm/dl (6.0-8.3)
[2022-01-22] MEDS: ASPIRIN 81 MG ECTAB PO SCH (08:03)
[2022-01-22 08:08] LABS: Hemoglobin 11.1 g/dL (12.0-16.0); Mean Corpuscular Hemoglobin 31.3 pg (25-34); Mean Corpuscular Hgb Conc 33.6 g/dL (32-36); RDW Coefficient of Variation 14.1 % (11.5-14.5); RDW Standard Deviation 48.3 fL (36.4-46.3); Red Blood Count 3.55 M/uL (4.2-5.4); White Blood Count 4.77 K/uL (4.8-10.8)
[2022-01-22 08:17] LABS: Mean Platelet Volume 10.5 fL (7.4-10.4); Platelet Count 95 K/uL (130-400)
[2022-01-22] MEDS: INSULIN ASPART PER UNIT SC SCH ×4 (08:29→20:08)
--- NOTE | 2022-01-22 10:13 | Hospitalist Progress Note ---
Date of Service January 22, 2022 Assessment & Plan (1) Chest discomfort: Plan: Has resolved with GI cocktail given in ED. Troponin mildly elevated but flat Echo reviewed EF 60-65, mild AV sclerosis without significant valvular stenosis Chest discomfort reported on admission, likely more epigastrium/related to recent surgery No chest pain at this time Monitor (2) Status post cholecystectomy: (3) GERD (gastroesophageal reflux disease): (4) Nausea: Plan: Ongoing issue since cholecystectomy on Sunday Fluid collection on CT. ?Post surgical Seroma or early infection Has fever but no leukocytosis Surgery eval noted Continue antibiotics for now and follow up cultures Continue PPI, add prn [id number] (5) DM type 2 (diabetes mellitus, type 2): Plan: Diabetic diet BSG ACHS Hold Metformin Insulin sliding scale while admitted (6) Hypothyroidism: Plan: Continue levothyroxine (7) APL (antiphospholipid syndrome): (8) Chronic ITP (idiopathic thrombocytopenia): Plan: Stable per review of outpatient records - in 2018, received four days of high- dose Decadron then Rituxan weekly x 4 without response, given IVIG x 2 days with response of platelet count increasing to ~100K Plt is 95K (9) Hyperlipidemia: Plan: On simvastatin Admission and Anticipated Discharge Date Admission Date: January 21, 2022 Subjective Patient seen and examined Reports some sore throat, dry cough since after surgery Denied nay nausea, vomiting today Reports mild periumbilical and perisurgical site discomfort with movement Had fever this morning. Denied chills, headache Denied chest pain, shortness of breath, palpitations Denied dysuria, freq, urgency, hematuria Denied diarrhea Physical Exam Constitutional: + well hydrated and + obese; no acute distress Eyes: PERRL, conjunctivae normal, anicteric sclerae ENMT: external ear and nose normal, oropharynx normal Respiratory: normal respiratory effort, lungs clear to auscultation Cardiovascular: Rate/Rhythm: regular rate and regular rhythm S1 S2 Gastrointestinal (Abdomen): normal bowel sounds, soft, nontender, no hepatosplenomegaly Musculoskeletal: no cyanosis or clubbing, extremities motor strength 5/5 Neurologic: PERRL, EOMI, accommodation nl, no face palsy, no dysarthria Psychiatric: A+Ox3, euthymic affect Results & Data Results & Data ([facility]) Vital Signs (Past 12 Hours) Vital Signs Temp Pulse Pulse Resp BP Pulse Ox 03/20/22 06:28 38.9 C H 84 18 108/60 96 01/22/22 03:34 36.9 C 77 16 110/66 92 01/22/22 01:36 78 01/21/22 23:33 37.6 C H 76 18 105/65 96 Laboratory Results Abnormal lab results 01/21/22 01/21/22 01/21/22 Range/Units 14:48 15:25 16:40 WBC (4.8-10.8) K/uL RBC (4.2-5.4) M/uL Hgb (12.0-16.0) g/dL Hct (37-47) % RDW Std Deviation (36.4-46.3) fL Plt Count (130-400) K/uL MPV (7.4-10.4) fL Sodium (136-145) mmol/L POC Glucose 112 H (70-99) mg/dl Alkaline Phosphatase (34-104) U/L Troponin I 0.12 H* (0-0.04) ng/ml Ur Specific [place] > 1.045 H (1.000-1.030) Urine Protein 1+ H (Negative) Urine Ketones Trace H (Negative) Urine Blood 2+ H (Negative) Urine Bilirubin 1+ H (Negative) Urine Urobilinogen Positive H (Negative) Urine RBC (Auto) 10-30 H (0-4) /hpf U Epithel Cells (Auto) 10-20 H (0-5) /lpf 01/21/22 01/22/22 01/22/22 Range/Units 21:00 05:18 05:18 WBC 4.77 L (4.8-10.8) K/uL RBC 3.55 L (4.2-5.4) M/uL Hgb 11.1 L (12.0-16.0) g/dL Hct 33.0 L (37-47) % RDW Std Deviation 48.3 H (36.4-46.3) fL Plt Count 95 L (130-400) K/uL MPV 10.5 H (7.4-10.4) fL Sodium 135 L (136-145) mmol/L POC Glucose (70-99) mg/dl Alkaline Phosphatase 149 H (34-104) U/L Troponin I 0.13 H* (0-0.04) ng/ml Ur Specific [place] (1.000-1.030) Urine Protein (Negative) Urine Ketones (Negative) Urine Blood (Negative) Urine Bilirubin (Negative) Urine Urobilinogen (Negative) Urine RBC (Auto) (0-4) /hpf U Epithel Cells (Auto) (0-5) /lpf 01/22/22 Range/Units 11:35 WBC (4.8-10.8) K/uL RBC (4.2-5.4) M/uL Hgb (12.0-16.0) g/dL Hct (37-47) % RDW Std Deviation (36.4-46.3) fL Plt Count (130-400) K/uL MPV (7.4-10.4) fL Sodium (136-145) mmol/L POC Glucose 111 H (70-99) mg/dl Alkaline Phosphatase (34-104) U/L Troponin I (0-0.04) ng/ml Ur Specific [place] (1.000-1.030) Urine Protein (Negative) Urine Ketones (Negative) Urine Blood (Negative) Urine Bilirubin (Negative) Urine Urobilinogen (Negative) Urine RBC (Auto) (0-4) /hpf U Epithel Cells (Auto) (0-5) /lpf
--- NOTE | 2022-01-22 10:30 | Electrocardiogram Report ---
Test Reason : Blood Pressure : / mmHG Vent. Rate : 080 BPM Atrial Rate : 080 BPM P-R Int : 144 ms QRS Dur : 098 ms QT Int : 374 ms P-R-T Axes : 063 -18 057 degrees QTc Int : 431 ms Normal sinus rhythm Poor R wave progression, consider anterior AK vs. lead placement vs. LVH Abnormal ECG When compared with ECG of 21-JAN-2022 08:11, No significant change was found Confirmed by Gamal Lawson ([id number]) on 01/22/2022 10:30:10 AM Referred By: REFERRED SELF Confirmed By:Lance Lawson
[2022-01-22] MEDS ORDERED: bisacodyL 5 MG TABEC PO ONE (14:49)
--- NOTE | 2022-01-22 14:50 | Surgery Progress Note ---
Date of Service January 22, 2022 Assessment & Plan (1) Status post cholecystectomy: Plan: ?postsurgical infected seroma. CT scan shows fluid within the gallbladder fossa and adjacent to the liver which could just be postsurgical or could represent early infection. She appears to be improving on IV antibiotics. Suspicion for a bile leak is low given that she is having bowel movements with no real peritoneal signs on exam. Continue diet. Should her abdominal symptoms worsen, a HIDA scan may be indicated to rule out bile leak. (2) Chest pain: Plan: workup as per medicine Admission and Anticipated Discharge Date Admission Date: January 21, 2022 Subjective Overall feels better with less nausea. She did have a fever again yesterday. Notes still some persistent periumbilical pain. No vomiting. She has not had a good bowel movement since Sunday. Physical Exam Constitutional: WD/WN, vitals as above Eyes: PERRL, conjunctivae normal, anicteric sclerae ENMT: external ear and nose normal, oropharynx normal Respiratory: normal respiratory effort, lungs clear to auscultation Cardiovascular: RRR, no murmur, no edema Gastrointestinal (Abdomen): Inspection/Auscultation: abdomen normal to inspection and normal bowel sounds; abdomen not distended Percussion/Palpation: + abdomen tender (at umbilical incision) and abdomen soft; no guarding Musculoskeletal: Extremities: extremities normal to inspection Gait: normal gait Neurologic: awake; no focal motor deficits Psychiatric: A+Ox3, euthymic affect Results & Data ([facility]) Vital Signs (Past 12 Hours) Vital Signs Temp Pulse Pulse Resp BP Pulse Ox 01/22/22 14:25 37.8 C H 92 H 18 135/83 96 01/22/22 10:58 37.5 C 79 18 102/58 L 94 01/22/22 07:00 79 01/22/22 06:28 38.9 C H 84 18 108/60 96 01/22/22 03:34 36.9 C 77 16 110/66 92 Laboratory Results 01/22/22 01/22/22 01/22/22 Range/Units 11:35 05:18 05:18 WBC 4.77 L (4.8-10.8) K/uL RBC 3.55 L (4.2-5.4) M/uL Hgb 11.1 L (12.0-16.0) g/dL Hct 33.0 L (37-47) % MCV 93.0 (80-100) fL MCH 31.3 (25-34) pg MCHC 33.6 (32-36) g/dL RDW Std Deviation 48.3 H (36.4-46.3) fL RDW Coeff of Mitch 14.1 (11.5-14.5) % Plt Count 95 L (130-400) K/uL MPV 10.5 H (7.4-10.4) fL Sodium 135 L (136-145) mmol/L Potassium 3.8 (3.5-5.1) mmol/L Chloride 102 (98-107) mmol/L Carbon Dioxide 26 (21-32) mmol/L Anion Gap 7 (3-11) BUN 10 (6-23) mg/dl Creatinine 1.00 (0.6-1.2) mg/dl Est Cr Clr Drug Dosing 77.6 ml/min Est GFR ( Amer) 75.0 ml/min Est GFR (Non-Af Amer) 64.7 ml/min BUN/Creatinine Ratio 10.0 (10-20) Glucose 83 (70-99(Fasting)) mg/dl POC Glucose 111 H (70-99) mg/dl Lactate (0.4-2.0) mmol/L Calcium 8.7 (8.5-10.1) mg/dl Magnesium 2.0 (1.7-2.4) mg/dl Total Bilirubin 1.0 D (0.2-1.0) mg/dl AST 33 (13-39) U/L ALT 28 (7-52) U/L Alkaline Phosphatase 149 H (34-104) U/L Troponin I (0-0.04) ng/ml Total Protein 7.3 (6.0-8.3) gm/dl Albumin 3.4 (3.4-5.0) gm/dl Globulin 3.9 (2.5-4.0) gm/dl Albumin/Globulin Ratio 0.9 (0.9-2) Urine Color Urine Appearance (Clear) Urine pH (4.5-7.5) Ur Specific [place] (1.000-1.030) Urine Protein (Negative) Urine Glucose (UA) (Negative) Urine Ketones (Negative) Urine Blood (Negative) Urine Nitrite (Negative) Urine Bilirubin (Negative) Urine Urobilinogen (Negative) Ur Leukocyte Esterase (Negative) Urine WBC (Auto) (0-5) /hpf Urine RBC (Auto) (0-4) /hpf U Hyaline Cast (Auto) (0-5) /lpf U Epithel Cells (Auto) (0-5) /lpf Urine Bacteria (Auto) (Negative) 01/21/22 01/21/22 01/21/22 Range/Units 21:00 20:09 16:40 WBC (4.8-10.8) K/uL RBC (4.2-5.4) M/uL Hgb (12.0-16.0) g/dL Hct (37-47) % MCV (80-100) fL MCH (25-34) pg MCHC (32-36) g/dL RDW Std Deviation (36.4-46.3) fL RDW Coeff of Mitch (11.5-14.5) % Plt Count (130-400) K/uL MPV (7.4-10.4) fL Sodium (136-145) mmol/L Potassium (3.5-5.1) mmol/L Chloride (98-107) mmol/L Carbon Dioxide (21-32) mmol/L Anion Gap (3-11) BUN (6-23) mg/dl Creatinine (0.6-1.2) mg/dl Est Cr Clr Drug Dosing ml/min Est GFR ( Amer) ml/min Est GFR (Non-Af Amer) ml/min BUN/Creatinine Ratio (10-20) Glucose (70-99(Fasting)) mg/dl POC Glucose 95 112 H (70-99) mg/dl Lactate (0.4-2.0) mmol/L Calcium (8.5-10.1) mg/dl Magnesium (1.7-2.4) mg/dl Total Bilirubin (0.2-1.0) mg/dl AST (13-39) U/L ALT (7-52) U/L Alkaline Phosphatase (34-104) U/L Troponin I 0.13 H* (0-0.04) ng/ml Total Protein (6.0-8.3) gm/dl Albumin (3.4-5.0) gm/dl Globulin (2.5-4.0) gm/dl Albumin/Globulin Ratio (0.9-2) Urine Color Urine Appearance (Clear) Urine pH (4.5-7.5) Ur Specific [place] (1.000-1.030) Urine Protein (Negative) Urine Glucose (UA) (Negative) Urine Ketones (Negative) Urine Blood (Negative) Urine Nitrite (Negative) Urine Bilirubin (Negative) Urine Urobilinogen (Negative) Ur Leukocyte Esterase (Negative) Urine WBC (Auto) (0-5) /hpf Urine RBC (Auto) (0-4) /hpf U Hyaline Cast (Auto) (0-5) /lpf U Epithel Cells (Auto) (0-5) /lpf Urine Bacteria (Auto) (Negative) 01/21/22 01/21/22 01/21/22 Range/Units 15:26 15:25 14:48 WBC (4.8-10.8) K/uL RBC (4.2-5.4) M/uL Hgb (12.0-16.0) g/dL Hct (37-47) % MCV (80-100) fL MCH (25-34) pg MCHC (32-36) g/dL RDW Std Deviation (36.4-46.3) fL RDW Coeff of Mitch (11.5-14.5) % Plt Count (130-400) K/uL MPV (7.4-10.4) fL Sodium (136-145) mmol/L Potassium (3.5-5.1) mmol/L Chloride (98-107) mmol/L Carbon Dioxide (21-32) mmol/L Anion Gap (3-11) BUN (6-23) mg/dl Creatinine (0.6-1.2) mg/dl Est Cr Clr Drug Dosing ml/min Est GFR ( Amer) ml/min Est GFR (Non-Af Amer) ml/min BUN/Creatinine Ratio (10-20) Glucose (70-99(Fasting)) mg/dl POC Glucose (70-99) mg/dl Lactate 0.6 (0.4-2.0) mmol/L Calcium (8.5-10.1) mg/dl Magnesium (1.7-2.4) mg/dl Total Bilirubin (0.2-1.0) mg/dl AST (13-39) U/L ALT (7-52) U/L Alkaline Phosphatase (34-104) U/L Troponin I 0.12 H* (0-0.04) ng/ml Total Protein (6.0-8.3) gm/dl Albumin (3.4-5.0) gm/dl Globulin (2.5-4.0) gm/dl Albumin/Globulin Ratio (0.9-2) Urine Color Dark Yellow Urine Appearance Clear (Clear) Urine pH 7.0 (4.5-7.5) Ur Specific [place] > 1.045 H (1.000-1.030) Urine Protein 1+ H (Negative) Urine Glucose (UA) Negative (Negative) Urine Ketones Trace H (Negative) Urine Blood 2+ H (Negative) Urine Nitrite Negative (Negative) Urine Bilirubin 1+ H (Negative) Urine Urobilinogen Positive H (Negative) Ur Leukocyte Esterase Negative (Negative) Urine WBC (Auto) 1-5 (0-5) /hpf Urine RBC (Auto) 10-30 H (0-4) /hpf U Hyaline Cast (Auto) 1-5 (0-5) /lpf U Epithel Cells (Auto) 10-20 H (0-5) /lpf Urine Bacteria (Auto) Negative (Negative)
[2022-01-22] MEDS: DOCUSATE SODIUM 100 MG CAP PO SCH ×2 (14:54→20:14)
[2022-01-22] MEDS: SIMVASTATIN 20 MG TAB PO SCH (20:14)
[2022-01-23] MEDS: ACETAMINOPHEN 325 MG TAB PO PRN ×2 (04:05→23:37)
[2022-01-23] MEDS: LEVOTHYROXINE SODIUM 25 MCG TABLET PO SCH (05:24)
[2022-01-23] MEDS: PIPERACILLIN/TAZOBACTAM 3.375 GM in DEXTROSE 5% 100 ML IV SCH ×3 (05:24→21:04)
[2022-01-23 05:50] LABS: Hematocrit (blood only) 32.9 % (37-47); Hemoglobin 11.1 g/dL (12.0-16.0); Mean Corpuscular Hgb Conc 33.7 g/dL (32-36); Mean Corpuscular Volume 91.9 fL (80-100); RDW Coefficient of Variation 13.8 % (11.5-14.5); RDW Standard Deviation 45.9 fL (36.4-46.3); Red Blood Count 3.58 M/uL (4.2-5.4); White Blood Count 4.43 K/uL (4.8-10.8)
[2022-01-23 06:10] LABS: Mean Platelet Volume 9.9 fL (7.4-10.4); Platelet Count 94 K/uL (130-400)
[2022-01-23 06:15] LABS: BUN Creatinine Ratio 11.5 (10-20); Creatinine Clr Calc Pharmacy 80.1 ml/min; Est GFR (African American) 78.8 ml/min; Potassium 3.6 mmol/L (3.5-5.1)
[2022-01-23] MEDS: PANTOprazole 40 MG TAB PO SCH (06:18)
[2022-01-23] MEDS: ASPIRIN 81 MG ECTAB PO SCH (07:15)
[2022-01-23] MEDS: INSULIN ASPART PER UNIT SC SCH ×4 (08:17→20:14)
[2022-01-23] MEDS: DOCUSATE SODIUM 100 MG CAP PO SCH ×2 (10:15→20:13)
--- NOTE | 2022-01-23 11:20 | Hospitalist Progress Note ---
Date of Service January 23, 2022 Assessment & Plan (1) Abdominal discomfort: (2) Chest discomfort: (3) Status post cholecystectomy: (4) GERD (gastroesophageal reflux disease): (5) Nausea: Plan: Report of chest discomfort vs epigastric pain on admission resolved with GI cocktail given in ED. Troponin mildly elevated but flat Echo reviewed EF 60-65, mild AV sclerosis without significant valvular stenosis Chest discomfort reported on admission, likely more epigastrium/related to recent surgery S/p lap cholecystectomy Fluid collection on CT. ?Post surgical Seroma vs infection Continues to have intermittent fever No leukocytosis Continue zosyn Follow up blood cultures in lab. Will repeat blood cultures if another fever Surgery eval noted Continue PPI, add prn [id number] (6) DM type 2 (diabetes mellitus, type 2): Plan: Diabetic diet BSG ACHS Hold Metformin Insulin sliding scale while admitted (7) Hypothyroidism: Plan: Continue levothyroxine (8) APL (antiphospholipid syndrome): (9) Chronic ITP (idiopathic thrombocytopenia): Plan: Stable per review of outpatient records - in 2018, received four days of high- dose Decadron then Rituxan weekly x 4 without response, given IVIG x 2 days with response of platelet count increasing to ~100K Plt is 94K (10) Hyperlipidemia: Plan: On simvastatin Admission and Anticipated Discharge Date Admission Date: January 21, 2022 Subjective Patient seen and examined Denied any nausea, vomiting Reports mild periumbilical and perisurgical site discomfort with movement Had fever last evening associated with headache Denied chest pain, shortness of breath, palpitations Denied dysuria, freq, urgency, hematuria Denied diarrhea Physical Exam Constitutional: + well hydrated and + obese; no acute distress Eyes: PERRL, conjunctivae normal, anicteric sclerae ENMT: external ear and nose normal, oropharynx normal Respiratory: normal respiratory effort, lungs clear to auscultation Cardiovascular: Rate/Rhythm: regular rate and regular rhythm S1 S2 Gastrointestinal (Abdomen): Soft, not distended, normal bowel sounds, mild RUQ tenderness Musculoskeletal: no cyanosis or clubbing, extremities motor strength 5/5 Neurologic: PERRL, EOMI, accommodation nl, no face palsy, no dysarthria Psychiatric: A+Ox3, euthymic affect Results & Data Results & Data ([facility]) Vital Signs (Past 12 Hours) Vital Signs Temp Pulse Pulse Resp BP Pulse Ox 01/23/22 10:48 36.7 C 73 16 110/70 98 01/23/22 07:20 36.9 C 75 18 130/78 96 01/23/22 07:08 126 H 01/23/22 05:30 37.4 C 01/23/22 03:19 38.4 C H 84 16 106/67 95 Laboratory Results Abnormal lab results 01/22/22 01/23/22 01/23/22 Range/Units 16:40 05:17 07:43 WBC 4.43 L (4.8-10.8) K/uL RBC 3.58 L (4.2-5.4) M/uL Hgb 11.1 L (12.0-16.0) g/dL Hct 32.9 L (37-47) % Plt Count 94 L (130-400) K/uL POC Glucose 105 H 126 H (70-99) mg/dl
--- NOTE | 2022-01-23 12:48 | Surgery Progress Note ---
Date of Service January 23, 2022 Assessment & Plan (1) Status post cholecystectomy: Plan: POD # 7 lap butch ?postsurgical infected seroma. CT scan shows fluid within the gallbladder fossa and adjacent to the liver which could just be postsurgical or could represent ea rly infection. Febrile, tmax of 38.4 last evening, afebrile this am wbc 4k abdominal pain controlled mild nausea Plan: Continue pain management as needed Continue IV antibiotics Continue diet incentive spirometry encouraged ambulating hallway will follow repeat am labs cbc and cmp Dr. Garcia has seen and examined pt, agrees with above. Admission and Anticipated Discharge Date Admission Date: January 21, 2022 Subjective feeling better still having fevers and some mild nausea tolerating diet no vomiting abdominal pain mild in right upper abdomen passing gas, last bowel movement was Sunday morning and small Physical Exam Constitutional: WD/WN, vitals as above no acute distress and not ill appearing Neck: normal visual inspection and trachea midline Respiratory: normal respiratory effort; no respiratory distress and no labored breathing Gastrointestinal (Abdomen): Inspection/Auscultation: abdomen normal to inspection and + abdominal surgical incision (clean and intact); abdomen not distended Percussion/Palpation: + abdomen tender (mild right upper abdomen) and abdomen soft; no guarding and abdomen not rigid some mild ecchymosis surrounding umbilical incision Skin: no rashes, warm and dry Psychiatric: Orientation: alert and oriented x 3 Results & Data ([facility]) Vital Signs (Past 12 Hours) Vital Signs Temp Pulse Pulse Resp BP Pulse Ox 01/23/22 10:48 36.7 C 73 16 110/70 98 01/23/22 07:20 36.9 C 75 18 130/78 96 01/23/22 07:08 126 H 01/23/22 05:30 37.4 C 01/23/22 03:19 38.4 C H 84 16 106/67 95 Laboratory Results 01/23/22 01/23/22 01/23/22 Range/Units 11:38 07:43 05:17 WBC (4.8-10.8) K/uL RBC (4.2-5.4) M/uL Hgb (12.0-16.0) g/dL Hct (37-47) % MCV (80-100) fL MCH (25-34) pg MCHC (32-36) g/dL RDW Std Deviation (36.4-46.3) fL RDW Coeff of Mitch (11.5-14.5) % Plt Count (130-400) K/uL MPV (7.4-10.4) fL Sodium 136 (136-145) mmol/L Potassium 3.6 (3.5-5.1) mmol/L Chloride 103 (98-107) mmol/L Carbon Dioxide 24 (21-32) mmol/L Anion Gap 9 (3-11) BUN 11 (6-23) mg/dl Creatinine 0.96 (0.6-1.2) mg/dl Est Cr Clr Drug Dosing 80.1 ml/min Est GFR ( Amer) 78.8 ml/min Est GFR (Non-Af Amer) 68.0 ml/min BUN/Creatinine Ratio 11.5 (10-20) Glucose 95 (70-99(Fasting)) mg/dl POC Glucose 91 126 H (70-99) mg/dl Calcium 9.0 (8.5-10.1) mg/dl 01/23/22 01/22/22 01/22/22 Range/Units 05:17 20:08 16:40 WBC 4.43 L (4.8-10.8) K/uL RBC 3.58 L (4.2-5.4) M/uL Hgb 11.1 L (12.0-16.0) g/dL Hct 32.9 L (37-47) % MCV 91.9 (80-100) fL MCH 31.0 (25-34) pg MCHC 33.7 (32-36) g/dL RDW Std Deviation 45.9 (36.4-46.3) fL RDW Coeff of Mitch 13.8 (11.5-14.5) % Plt Count 94 L (130-400) K/uL MPV 9.9 (7.4-10.4) fL Sodium (136-145) mmol/L Potassium (3.5-5.1) mmol/L Chloride (98-107) mmol/L Carbon Dioxide (21-32) mmol/L Anion Gap (3-11) BUN (6-23) mg/dl Creatinine (0.6-1.2) mg/dl Est Cr Clr Drug Dosing ml/min Est GFR ( Amer) ml/min Est GFR (Non-Af Amer) ml/min BUN/Creatinine Ratio (10-20) Glucose (70-99(Fasting)) mg/dl POC Glucose 99 105 H (70-99) mg/dl Calcium (8.5-10.1) mg/dl
[2022-01-23] MEDS: POLYETHYLENE (MIRALAX) 17 GM PACK PO SCH (13:41)
[2022-01-23] MEDS: SIMVASTATIN 20 MG TAB PO SCH (20:14)
[2022-01-24] MEDS: LEVOTHYROXINE SODIUM 25 MCG TABLET PO SCH (05:42)
[2022-01-24] MEDS: PIPERACILLIN/TAZOBACTAM 3.375 GM in DEXTROSE 5% 100 ML IV SCH ×3 (05:42→21:15)
[2022-01-24] MEDS: PANTOprazole 40 MG TAB PO SCH (05:43)
[2022-01-24 06:24] LABS: Hematocrit (blood only) 32.9 % (37-47); Hemoglobin 10.9 g/dL (12.0-16.0); Mean Corpuscular Hemoglobin 30.6 pg (25-34); Mean Corpuscular Hgb Conc 33.1 g/dL (32-36); Mean Corpuscular Volume 92.4 fL (80-100); RDW Coefficient of Variation 13.8 % (11.5-14.5); RDW Standard Deviation 46.4 fL (36.4-46.3); Red Blood Count 3.56 M/uL (4.2-5.4); White Blood Count 3.61 K/uL (4.8-10.8)
[2022-01-24 06:32] LABS: Mean Platelet Volume 9.8 fL (7.4-10.4); Platelet Count 98 K/uL (130-400)
[2022-01-24 06:46] LABS: Albumin Globulin Ratio 0.9 (0.9-2); Albumin Level 3.6 gm/dl (3.4-5.0); BUN Creatinine Ratio 11.7 (10-20); Bilirubin,Total 0.6 mg/dl (0.2-1.0); Calcium 9.2 mg/dl (8.5-10.1); Creatinine Clr Calc Pharmacy 74.7 ml/min; Est GFR (African American) 72.4 ml/min; Est GFR (Non-African American) 62.5 ml/min; Potassium 3.8 mmol/L (3.5-5.1); Total Protein 7.6 gm/dl (6.0-8.3)
[2022-01-24 07:03] LABS: Basophils # (auto) 0.01 K/uL (0-0.2); Basophils % (auto) 0.3 %; Eosinophils # (auto) 0.08 K/uL (0-0.5); Eosinophils % (auto) 2.2 %; Immature Granulocytes # (auto) 0.03 K/uL (0.00-0.02); Immature Granulocytes % (auto) 0.8 %; Lymphocytes # (auto) 0.96 K/uL (1.2-3.4); Lymphocytes % (auto) 26.6 %; Monocytes # (auto) 0.29 K/uL (0.11-0.59); Neutrophils # (auto) 2.24 K/uL (1.4-6.5); Neutrophils % (auto) 62.1 %
[2022-01-24] MEDS: DOCUSATE SODIUM 100 MG CAP PO SCH ×2 (07:43→20:37)
[2022-01-24] MEDS: POLYETHYLENE (MIRALAX) 17 GM PACK PO SCH (07:43)
[2022-01-24] MEDS: ASPIRIN 81 MG ECTAB PO SCH (07:43)
[2022-01-24] MEDS: INSULIN ASPART PER UNIT SC SCH ×4 (08:26→21:04)
[2022-01-24] MEDS: FAMOTIDINE 20 MG in SYRINGE 3 ML IV PRN (09:34)
--- NOTE | 2022-01-24 09:45 | Hospitalist Progress Note ---
Date of Service January 24, 2022 Assessment & Plan (1) Abdominal discomfort: (2) Chest discomfort: (3) Status post cholecystectomy: (4) GERD (gastroesophageal reflux disease): (5) Nausea: Plan: Report of chest discomfort vs epigastric pain on admission resolved with GI cocktail given in ED. Troponin mildly elevated but flat Echo reviewed EF 60-65, mild AV sclerosis without significant valvular stenosis Chest discomfort reported on admission, likely more epigastrium/related to recent surgery S/p lap cholecystectomy Fluid collection on CT. ?Post surgical Seroma vs infection Last fever was 01/23/22 No leukocytosis. Mild leukopenia Continue zosyn Initial blood cultures negative Follow up repeat drawn yesterday Surgery eval noted Continue PPI, add prn [id number] (6) DM type 2 (diabetes mellitus, type 2): Plan: Diabetic diet BSG ACHS Hold Metformin Insulin sliding scale while admitted (7) Hypothyroidism: Plan: Continue levothyroxine (8) APL (antiphospholipid syndrome): (9) Chronic ITP (idiopathic thrombocytopenia): Plan: Stable per review of outpatient records - in 2018, received four days of high- dose Decadron then Rituxan weekly x 4 without response, given IVIG x 2 days with response of platelet count increasing to ~100K Plt is 98K (10) Hyperlipidemia: Plan: On simvastatin Admission and Anticipated Discharge Date Admission Date: January 21, 2022 Subjective Patient seen and examined Reports feeling mildly better Denied any nausea, vomiting Reports mild periumbilical pain around surgical site Had low grade temp yesterday which was associated with headache. Repeat blood cultures were sent at the time Reports dry cough (since after sx) Denied chest pain, shortness of breath, palpitations Denied dysuria, freq, urgency, hematuria Denied diarrhea Physical Exam Constitutional: + well hydrated and + obese; no acute distress Eyes: PERRL, conjunctivae normal, anicteric sclerae ENMT: external ear and nose normal, oropharynx normal Respiratory: normal respiratory effort, lungs clear to auscultation Cardiovascular: Rate/Rhythm: regular rate and regular rhythm S1 S2 Gastrointestinal (Abdomen): Inspection/Auscultation: abdomen normal to ins pection; abdomen not distended Mild RUQ/periumbilical tenderness. Normal bowel sounds Musculoskeletal: no cyanosis or clubbing, extremities motor strength 5/5 Neurologic: PERRL, EOMI, accommodation nl, no face palsy, no dysarthria Psychiatric: A+Ox3, euthymic affect Results & Data Results & Data ([facility]) Vital Signs (Past 12 Hours) Vital Signs Temp Pulse Pulse Resp BP Pulse Ox 01/24/22 07:40 37.0 C 69 18 96/59 L 95 01/24/22 03:39 37.2 C 68 18 107/70 95 01/23/22 23:16 37.7 C H 76 20 117/70 96 01/23/22 22:29 78 Laboratory Results Abnormal lab results 01/23/22 01/23/22 01/24/22 Range/Units 16:37 19:55 05:55 WBC (4.8-10.8) K/uL RBC (4.2-5.4) M/uL Hgb (12.0-16.0) g/dL Hct (37-47) % RDW Std Deviation (36.4-46.3) fL Plt Count (130-400) K/uL Lymph # (Auto) (1.2-3.4) K/uL Immature Gran # (Auto) (0.00-0.02) K/uL POC Glucose 106 H 109 H (70-99) mg/dl Alkaline Phosphatase 183 H (34-104) U/L 01/24/22 01/24/22 Range/Units 05:55 07:35 WBC 3.61 L (4.8-10.8) K/uL RBC 3.56 L (4.2-5.4) M/uL Hgb 10.9 L (12.0-16.0) g/dL Hct 32.9 L (37-47) % RDW Std Deviation 46.4 H (36.4-46.3) fL Plt Count 98 L (130-400) K/uL Lymph # (Auto) 0.96 L (1.2-3.4) K/uL Immature Gran # (Auto) 0.03 H (0.00-0.02) K/uL POC Glucose 102 H (70-99) mg/dl Alkaline Phosphatase (34-104) U/L
--- NOTE | 2022-01-24 14:53 | Surgery Progress Note ---
Date of Service January 24, 2022 Assessment & Plan (1) Status post cholecystectomy: Plan: POD # 8 lap butch ?postsurgical infected seroma. CT scan shows fluid within the gallbladder fossa and adjacent to the liver which could just be postsurgical or could represent ea rly infection. Febrile, tmax of 37.7 last evening, afebrile this am wbc 3k abdominal pain controlled Plan: Continue pain management as needed Continue IV antibiotics Continue diet incentive spirometry encouraged ambulating hallway will need 10 days of oral antibiotics on discharge repeat am labs cbc and cmp Dr. Garcia has seen and examined pt, agrees with above. Admission and Anticipated Discharge Date Admission Date: January 21, 2022 Subjective feeling slightly lightheaded at times abdominal pain is better no n/v tolerating diet bowel movement this morning with some abdominal discomfort afterwards Physical Exam 2 Constitutional: WD/WN, vitals as above no acute distress and not ill appearing Neck: normal visual inspection and trachea midline Respiratory: normal respiratory effort; no respiratory distress Gastrointestinal (Abdomen): Inspection/Auscultation: abdomen normal to inspection and + abdominal surgical incision (clean,dry, intact); abdomen not distended Percussion/Palpation: + abdomen tender (mild in RUQ and at supraumbilical incision) and abdomen soft; no guarding and abdomen not rigid Skin: no rashes, warm and dry Psychiatric: Orientation: alert and oriented x 3 Results & Data ([facility]) Vital Signs (Past 12 Hours) Vital Signs Temp Pulse Pulse Resp BP Pulse Ox 01/24/22 11:15 37.0 C 75 18 116/64 96 01/24/22 09:30 117/86 01/24/22 07:40 37.0 C 69 18 96/59 L 95 01/24/22 07:00 70 01/24/22 03:39 37.2 C 68 18 107/70 95 Laboratory Results 01/24/22 01/24/22 01/24/22 Range/Units 11:36 07:35 05:55 WBC 3.61 L (4.8-10.8) K/uL RBC 3.56 L (4.2-5.4) M/uL Hgb 10.9 L (12.0-16.0) g/dL Hct 32.9 L (37-47) % MCV 92.4 (80-100) fL MCH 30.6 (25-34) pg MCHC 33.1 (32-36) g/dL RDW Std Deviation 46.4 H (36.4-46.3) fL RDW Coeff of Mitch 13.8 (11.5-14.5) % Plt Count 98 L (130-400) K/uL MPV 9.8 (7.4-10.4) fL Immature Gran % (Auto) 0.8 % Neut % (Auto) 62.1 % Lymph % (Auto) 26.6 % Potter % (Auto) 8.0 % Eos % (Auto) 2.2 % Baso % (Auto) 0.3 % Neut # (Auto) 2.24 (1.4-6.5) K/uL Lymph # (Auto) 0.96 L (1.2-3.4) K/uL Potter # (Auto) 0.29 (0.11-0.59) K/uL Eos # (Auto) 0.08 (0-0.5) K/uL Baso # (Auto) 0.01 (0-0.2) K/uL Immature Gran # (Auto) 0.03 H (0.00-0.02) K/uL Sodium (136-145) mmol/L Potassium (3.5-5.1) mmol/L Chloride (98-107) mmol/L Carbon Dioxide (21-32) mmol/L Anion Gap (3-11) BUN (6-23) mg/dl Creatinine (0.6-1.2) mg/dl Est Cr Clr Drug Dosing ml/min Est GFR ( Amer) ml/min Est GFR (Non-Af Amer) ml/min BUN/Creatinine Ratio (10-20) Glucose (70-99(Fasting)) mg/dl POC Glucose 105 H 102 H (70-99) mg/dl Calcium (8.5-10.1) mg/dl Total Bilirubin (0.2-1.0) mg/dl AST (13-39) U/L ALT (7-52) U/L Alkaline Phosphatase (34-104) U/L Total Protein (6.0-8.3) gm/dl Albumin (3.4-5.0) gm/dl Globulin (2.5-4.0) gm/dl Albumin/Globulin Ratio (0.9-2) 01/24/22 01/23/2222 Range/Units 05:55 19:55 16:37 WBC (4.8-10.8) K/uL RBC (4.2-5.4) M/uL Hgb (12.0-16.0) g/dL Hct (37-47) % MCV (80-100) fL MCH (25-34) pg MCHC (32-36) g/dL RDW Std Deviation (36.4-46.3) fL RDW Coeff of Mitch (11.5-14.5) % Plt Count (130-400) K/uL MPV (7.4-10.4) fL Immature Gran % (Auto) % Neut % (Auto) % Lymph % (Auto) % Potter % (Auto) % Eos % (Auto) % Baso % (Auto) % Neut # (Auto) (1.4-6.5) K/uL Lymph # (Auto) (1.2-3.4) K/uL Potter # (Auto) (0.11-0.59) K/uL Eos # (Auto) (0-0.5) K/uL Baso # (Auto) (0-0.2) K/uL Immature Gran # (Auto) (0.00-0.02) K/uL Sodium 139 (136-145) mmol/L Potassium 3.8 (3.5-5.1) mmol/L Chloride 105 (98-107) mmol/L Carbon Dioxide 25 (21-32) mmol/L Anion Gap 9 (3-11) BUN 12 (6-23) mg/dl Creatinine 1.03 (0.6-1.2) mg/dl Est Cr Clr Drug Dosing 74.7 ml/min Est GFR ( Amer) 72.4 ml/min Est GFR (Non-Af Amer) 62.5 ml/min BUN/Creatinine Ratio 11.7 (10-20) Glucose 91 (70-99(Fasting)) mg/dl POC Glucose 109 H 106 H (70-99) mg/dl Calcium 9.2 (8.5-10.1) mg/dl Total Bilirubin 0.6 (0.2-1.0) mg/dl AST 38 (13-39) U/L ALT 27 (7-52) U/L Alkaline Phosphatase 183 H (34-104) U/L Total Protein 7.6 (6.0-8.3) gm/dl Albumin 3.6 (3.4-5.0) gm/dl Globulin 4.0 (2.5-4.0) gm/dl Albumin/Globulin Ratio 0.9 (0.9-2) Microbiology 01/21/22 12:51 Aerobic Blood Culture - Preliminary Blood No growth in Aerobic bottle after 48 hours. Anaerobic Blood Culture - Preliminary No growth in Anaerobic bottle after 48 hours. 01/21/22 12:41 Aerobic Blood Culture - Preliminary Blood No growth in Aerobic bottle after 48 hours. Anaerobic Blood Culture - Preliminary No growth in Anaerobic bottle after 48 hours.
[2022-01-24] MEDS: SIMVASTATIN 20 MG TAB PO SCH (20:37)
[2022-01-25] MEDS: LEVOTHYROXINE SODIUM 25 MCG TABLET PO SCH (05:58)
[2022-01-25] MEDS: PIPERACILLIN/TAZOBACTAM 3.375 GM in DEXTROSE 5% 100 ML IV SCH ×2 (05:58→14:57)
[2022-01-25] MEDS: PANTOprazole 40 MG TAB PO SCH (06:00)
[2022-01-25 06:02] LABS: Hematocrit (blood only) 33.2 % (37-47); Hemoglobin 11.2 g/dL (12.0-16.0); Mean Corpuscular Hgb Conc 33.7 g/dL (32-36); RDW Coefficient of Variation 13.9 % (11.5-14.5); RDW Standard Deviation 46.5 fL (36.4-46.3); Red Blood Count 3.61 M/uL (4.2-5.4); White Blood Count 3.76 K/uL (4.8-10.8)
[2022-01-25 06:26] LABS: Mean Platelet Volume 9.9 fL (7.4-10.4); Platelet Count 97 K/uL (130-400)
[2022-01-25 06:27] LABS: BUN Creatinine Ratio 11.8 (10-20); Calcium 9.2 mg/dl (8.5-10.1); Creatinine Clr Calc Pharmacy 82.8 ml/min; Est GFR (African American) 81.9 ml/min; Est GFR (Non-African American) 70.7 ml/min; Potassium 3.9 mmol/L (3.5-5.1)
[2022-01-25] MEDS: INSULIN ASPART PER UNIT SC SCH ×2 (08:37→12:54)
[2022-01-25] MEDS: DOCUSATE SODIUM 100 MG CAP PO SCH (08:38)
[2022-01-25] MEDS: ASPIRIN 81 MG ECTAB PO SCH (08:38)
[2022-01-25] MEDS: POLYETHYLENE (MIRALAX) 17 GM PACK PO SCH (09:50)
--- NOTE | 2022-01-25 15:53 | Discharge Summary ---
Date of Service January 25, 2022 Admission HPI Per Admitting Provider This is a 51 y/o female with a PMH of DM2, GERD, metabolic syndrome, antiphospholipid syndrome, chronic ITP, hypothyroidism, dyslipidemia, and complex migraine who presents to the ED via EMS with chest discomfort, fever, chills, and persistent nausea. Underwent a cholecystectomy on Sunday five days ago. She feels like she has overall not done well since surgery with multiple complaints. Specifically, she hasn't been able to eat much since surgery. Able to eat some jello, sweet potatoes, chicken noodle soup, pudding but nothing more. Gets nauseated with eating anything but hasn't vomited. Also c/o chest discomfort for past few days. Thought initially it was indigestion and heartburn which she usually gets and then perhaps secondary to gas. She did note some palpitations at one point but these are better now. Points to center of her chest when asked location of pain. Feels relief of this discomfort after the GI cocktail in the ED. Has also had some gas pains in her abdomen. Had some diarrhea after a cup of coffee but otherwise usual BM. Last BM was two days ago. Ongoing bloating and gas since surgery. Pain in abdomen mostly related to the incision. +eructation and passing gas. Today called EMS due to fevers, chills, feeling worse - EMS noted a temp of 100.3. Round O feverish and had chills last night - Tmax was 100.8F at home. Also reports dyspnea on exertion, specifically with a couple of flights of steps, for "a while" - took a breathing treatment before her surgery which she says helped. Had some transient burning and red urine after surgery but this has since resolved. Only checks sugars at home when she "feels off" but no recent elevation of sugar over 200. Principal Diagnosis Post op fever, possibly surgical site infection Demand ischemia Discharge Exam Patient is tolerating a low fat diet with no abdominal pain Reports intermittent headache and associated light headedness which is chronic On exam Gen- appears stated age, no acute distress CV- regular rate and rhythm, no murmurs/rubs/gallops Pulm- breathing comfortably on room air, no wheezing/rhonchi/rales Abd- soft, non tender, non distended Extr- no edema Discharge Data Allergies Allergy/AdvReac Type Severity Reaction Status Date / Time codeine Allergy Intermediate Hives Verified 01/21/22 10:37 Consultations 01/21/22 12:47 ED Decision to Admit Stat 01/21/22 15:25 Consult General Surgery Routine Ordered Studies 01/21/22 08:50 US venous doppler LE LT Stat 01/21/22 10:13 CT abd pelvis IV con only Stat CT angio chest PE protocol Stat Hospital Course Ms Jalyn Rios is a 51 year old female with history of ITP, complicated migraine headaches, antiphospholipid syndrome and recently status post laparoscopic cholecystectomy 01/16 for chronic cholecystitis presented to the hospital on 01/21 with abdominal discomfort and fever/chills. She underwent CT A/P with contrast which showed a multiloculated fluid collection in her gall bladder fossa. With her concurrent fever, there was concern of infection so she was placed on zosyn. She had several sets of blood cultures obtained here on 01/21 and again 01/23 which remained negative. She did well on zosyn and her fever resolved. At the time of discharge, her last temp was 99 on 36 hours prior. She tolerated a low fat diet with no abdominal discomfort. She was discharged home on PO augmentin to complete a 10 day course and instructed to follow up with her surgeon the following week. Incidentally, she had troponin here which was elevated but trend was flat. TTE was negative for wall motion abnormality. She should follow up with her primary care physician for an outpatient stress test. Total Time Total Time Spent Total Time Spent (In Minutes): 40 Discharge Plan Discharge Items Patient Disposition: Home - Self-Care Reason For Visit: CHEST PAIN Discharge Diagnosis: Post op fever, possibly early infection of surgical site Activity: Resume your previous activity Lifting: Wait until after follow-up appointment Driving/Machine Use: Resume 3 days after discharge Weightbearing: Full weightbearing Non-emergency contact: Primary Care Provider and Surgeon Call non-emergency contact if: you have any medication questions, your symptoms worsen and you have a fever Follow-up/Referrals: Jewels Greenfield MD [Primary Care Provider] - (Date & Time 02/01/2022 10:00 AM Provider Edgardo Cabrera MD Department Family Medicine [facility] ) Angeline Garcia MD [Physician] - (Date & Time 01/31/2022 1:15 PM Provider Angelien Garcia MD Department General Surgery, [facility] ) Diet: Low Fat Addtl Attending Provider Instructions: You were admitted for fever after a recent laparoscopic cholecystectomy CT A/P showed fluid in the area where your gall bladder was You were placed on antibiotics and your fevers subsided You will go home on Augmentin to finish 10 days. While being on antibiotics, you were started on a pro biotic to promote gut health You should follow up with Dr Garcia, your surgeon, next week If you have abdominal pain, nausea/vomiting, or fever--> please return to the ER You should follow up with your PCP for an outpatient stress test. Because you were having abdominal pain, you had troponin (marker of cardiac stress) which was abnormal but a follow up Echo (ultrasound of your heart) was normal. You may have underlying heart disease and should follow up with your family doctor for a stress test for further evaluation. You were started on a baby aspirin for this. Pending Studies at Discharge: No Stand-Alone Forms: My [facility], Smoking Cessation Medications and DC Order Prescriptions: New amoxicillin-pot clavulanate 875-125 mg tablet 1 tab PO BID 6 Days Qty: 12 RF: 0 Saccharomyces boulardii [Florastor] 250 mg capsule 250 mg PO BID Qty: 20 RF: 0 Continued pantoprazole [Protonix] 40 mg Tablet,Delayed Release (Dr/Ec) 40 mg PO QAM RF: 0 simvastatin [Zocor] 20 mg Tablet 20 mg PO HS RF: 0 multivitamin Tablet 1 tab PO QAM RF: 0 acetaminophen [Tylenol Extra Strength] 500 mg Tablet 500 - 1,000 mg PO Q6H PRN (Reason: Pain) RF: 0 levothyroxine [Synthroid] 25 mcg tablet 25 mcg PO QAM RF: 0 metformin 500 mg Tablet 500 mg PO QAM RF: 0 Probiotic Acidophilus 1.5 mg (250 million cell) Capsule 1,000 mmu cells PO QAM RF: 0 diphenhydramine HCl [Benadryl] 25 mg Capsule 25 mg PO HS PRN (Reason: Allergy Symptoms) RF: 0 Discharge Orders: Discharge Order (Routine); Ordered 01/25/22 Ordered By: Jie Avalos Admission Data Admit Date/Time: 01/21/22 12:54 Attending Provider: Jie Avalos Admit Provider: Aliza Chaudhary Primary Care Provider: Jewels Greenfield Other Providers: Aliza Chaudhary ; Nilda Norton ; Yanique Prado I. Other Interventions: Discharge Summary Assessment (RN) Last Done: 01/25/22 15:58
== END 2022-01-25 17:48 | disposition home or self-care (01) | DRG 863 ==
LOC: ED 08:05 → 2N 12:54 → INTOOBSV 12:54 → SUATTDRO 12:54 → 2N 14:50

== ENCOUNTER 2023-11-03 11:17 | Inpatient (IN) ==
--- OUTSIDE RECORDS SUMMARY | 2023-11-03 11:25 | External Medical Summary | Summary of Care ---
Author Name Unknown Organization [facility] Address [address] [facility] [place] [address] Phone [phone] Care Team Providers Care Nuclear Medicine Technologist Name Role Phone Jewels Greenfield MD Primary Care Provide r Reason for Visit * Reason Onset Date Comments Advice 11/01/2023 Encounter Details Date Type Department Care Team (Late st Contact Info) Description 11/01/2023 Telephone General Surgery, [facility] [address] [place] [address] Angeline Garcia MD [address] [place] [address] Advice Allergies Active Allergy Reactions Criticality Noted Date Comments Codeine Hives,Itching 06/07/2018 Morphine And Related 01/28/2008 documented as of this encounter (statuses as of 11/01/2023) Medications Medication Sig Dispensed Refills Start Date End Date Status Multiple Vitamins-Minerals (ONE-A-DAY WOMENS 50+ ADVANTAGE) Tablet Take 1 Tablet by mouth in the morning. 0 Active Acetaminophen 500 MG Oral Tablet (Tylenol) Take 1 Tablet by mouth every 6 hours as needed for Pain. Take 1 -2 tab q 6 hr prn 0 Active Loratadine 10 MG Oral Tablet Take 1 Tablet by mouth in the morning. 0 Active OneTouch Verio In Vitro Strip (Glucose Blood) USE STRIP TO CHECK GLUCOSE ONCE DAILY 100 Strip 3 05/15/2022 Active OneTouch Delica Plus [id number] USE TO CHECK GLUCOSE ONCE DAILY 100 Each 3 05/15/2022 Active [employer] Verio Flex System w/Device KitIndications:Hypo glycemia Use as directed . Test BS once daily and as needed for hypoglycemia DX: E88.8/ Z83.3 1 Kit 0 05/16/2022 Active Artificial Tears 83-15 % Ophthalmic OintmentIndications :Prado's palsy Instill into the right eye every night at bedtime. 3.5 g 2 10/05/2022 Active Magnesium 250 MG Oral Tablet Take 1 Tablet by mouth in the morning. 0 Active Pantoprazole Sodium 40 MG Oral Tablet Delayed Release (Protonix) TAKE 1 TABLET BY MOUTH ONCE DAILY 30 MINUTES BEFORE THE FIRST MEAL OF THE DAY. DO NOT, CRUSH OR CHEW TABLET 90 Tablet 1 03/29/2023 Active Levoxyl 50 MCG Oral Tablet Take 1 Tablet by mouth in the morning. on an empty stomach.. 90 Tablet 1 05/17/2023 Active Warfarin Sodium 5 MG Oral Tablet (Coumadin)Indicatio ns:Chronic deep vein thrombosis (DVT) of left popliteal vein (HCC),Thrombocytope letty (HCC),APL (antiphospholipid syndrome) (HCC),Anticoagulati on management encounter,skilled nursing current use of anticoagulant therapy TAKE UP TO 2 TABLETS BY MOUTH DAILY DIRECTED BY ANTICOAG CLINIC 180 Tablet 3 10/02/2023 Active Simvastatin 20 MG Oral Tablet (Zocor)Indications: Dyslipidemia, goal LDL below 130 TAKE 1 TABLET BY MOUTH ONCE DAILY AT NIGHT AT BEDTIME 90 Tablet 3 10/02/2023 Active Enoxaparin Sodium 100 MG/ML Injection Solution Prefilled Syringe (Lovenox) Inject 100 mg under the skin in the morning and 100 mg before bedtime. 10 mL 1 10/23/2023 Active documented as of this encounter (statuses as of 11/01/2023) Active Problems Problem Noted Date Diagnosed Date H/O dysplastic nevus 11/15/2022 Overview: Moderately atypical nevus (R upper arm 11/27) Chronic deep vein thrombosis (DVT) of left popli teal vein 03/27/2022 Retracted tympanic membrane, left 10/03/2019 Conductive hearing loss of l eft ear with restricted hearing of right ear 10/03/2019 Acquired hypothyroidism 02/14/2019 Chronic ITP (idiopathic thrombocytopenia) 2017 APL (antiphospholipid syndrome) 06/07/2018 Thrombocytopenia 04/25/2018 Dyslipidemia, goal LDL below 130 10/02/2016 Slow transit constipation 03/24/2013 Tobacco use disorder 10/23/2007 Class 1 obesity due to exces s calories without serious comorbidity in adult 10/23/2007 Overview: Per Obesity Taxonomy Metabolic syndrome 10/23/2007 Family history of diabetes mellitus 10/23/2007 Sensorineural hearing loss, bilateral Dysfunction of eustachian tube Gastroesophageal reflux disease without esophagi tis documented as of this encounter (statuses as of 11/01/2023) Resolved Problems Problem Noted Date Diagnosed Date Resolved Date Hepatic cirrhosis 07/14/2022 07/14/2022 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 BMI 34.0-34.9,adult 12/29/2010 02/23/20 18 OBESITY, BMI 30-34 (SEE ACTUAL BMI) 01/27/2010 12/29/2010 Overview: Per Obesity Taxonomy Dyslipidemia, goal to be determined 11/07/2007 12/29/2010 Esophageal reflux 10/02/2016 Otitis media 10/02/2016 Chronic mastoiditis 10/02/20 16 Calculus of gallbladder 02/03 documented as of this encounter (statuses as of 11/01/2023) Immunizations Name Administration Dates Next Due Pneumococcal Conjugate Vacci ne, 20-valent ([id number]) 05/30/2022 Pneumococcal Polysaccharide PPV23 (Pneumovax) 09/24/2012,07/08/2009(Deferred: Patient Refused) TDAP (age 10 and older)(Boostrix) 01/17/2019,10/2009 TDAP (age 11 and older)(Adacel) 01/14/2009 documented as of this encounter Social History Tobacco Use Types Packs/Day Years Used Date Smoking Tobacco: Former Cigarettes 0.5 15 Q uit: 06/13/2018 Smokeless Tobacco: Never Alcohol Use Standard Drinks/Week Comments Yes 0 (1 standard drink = 0.6 oz pure alcohol) one or two glasses of wine a month as of 04/25/2018 PHQ-2 Answer Date Recorded PHQ-2 Score 2 09/10/2020 Hunger Vital Sign Answer Date Recorded Worried About Running Out of Food in the Last Ye ar Never true 08/22/2019 Ran Out of Food in the Last Year Never true 08/22/2019 Sex and Gender Information Value Date Recorded Sex Assigned at Not on file Gender Identity Not on file Sexual Orientation Not on file Job Start Date Occupation Industry Not on file Not on file Not on file documented as of this encounter Miscellaneous Notes * Telephone Encounter - Catherine Gusman CMA - 11/01/2023 10:20 AM EST Called and spoke to patient. Patient states that she feels like her side is swollen compared to theother side. Patient questions what she should do. Patient educated to remove dressing so be able tosee what may be going on. Patient states she was told to keep the gauze on for 4 days. Patient educated that I need more information to best help her. Patient unable to remove dressing herself. Patient educated to come into for nurse visit to have incision site looked at. Patient placed on nurse visit for 11am. * Telephone Encounter - Deysi Donis OSA - 11/01/2023 9:22 AM EST Patient had a mass removed on her left abdominal area on 10/31 and is having swelling. Please return call to patient. documented in this encounter Plan of Treatment Upcoming Encounters Date Type Department Care Team (Late st Contact Info) Description 11/01/2023 11:00 AM EST [facility] [address] [place] [address] [place], Nurse Gen Surg Jessica [address] [place] [address] 11/06/2023 11:00 AM EST Anticoagulation Pharmacy, [facility] 132 [facility] [place] [address] [place] [facility] [place] Teagan Garciagail [place] [address] 11/08/2023 11:00 AM EST [facility], [facility] [phone] [facility] 132 [facility] [place] [address] 11/14/2023 11:00 AM EST Office Visit Dermatology [address] [place] [address] Briana Carlin PA-C [address] [place] [address] [place] [address] 11/19/2023 9:45 AM EST Office Visit General Surgery, [facility] 132 [facility] [place] [address] Angeline Garcia MD 132 [place] [address] 11/27/2023 8:45 AM EST Office Visit Hematology/Oncology [facility] [address] [place] [address] Ralph Barron MD [address] [place] [address] Scheduled Procedures Name Priority Associated Diagnoses Date/Ti me COLONOSCOPY FLEXIBLE PROXIMA L DIAGNOSTIC Recall History of colon polyps Special screening for malignant neoplasms, colon Health Maintenance Due Date Last Done Comments Hepatitis B (1 of 3 - 3-dose series) 1970 COVID-19 Vaccine (#1) 1969 Zoster Vaccines (1 of 2) 2019 COLONOSCOPY-ANNUAL AGES 18-100 06/18/2020 06/18/2019, 06/18/2019 Depression Screening 09/09/2021 09/09/2020 Influenza Vaccine (FLU shot) (#1) 2023 Mammogram 07/13/2024 07/13/2023, 06/01/2022, 01/05/2021, Additional history exists TSH 10/04/2024 10/04/2023, 07/0 05/2023, 02/19/2023, Additional history exists Diabetes Screening 10/04/2026 10/04/2023, 0 02/19/2023, 12/11/2022, Additional history exists Lipid Panel 10/04/2028 10/04/2023, 020 04/2023, 03/27/2022, Additional history exists DTaP,Tdap,and Td Vaccines (4 - Td or Tdap) 01/17/2029 01/17/2019, 01/14/2009, 01/14/2009 Pneumococcal Vaccine: Pediatrics (0 to 5 Years) and At-Risk Patients (6 to 64 Years) Completed 05/30/2022, 09/24/2012 GARDASIL-HPV IMMUNIZATION SERIES Aged Out No longer eligible based on patient's age to complete this topic MENINGOCOCCAL (MENACTRA/MENVEO) Aged Out No longer eligible based on patient's age to complete this topic documented as of this encounter Medical Devices Not on filedocumented as of this encounter Care Teams Nuclear Medicine Technologist Relationship Specialty Start Date End Date Jewels Greenfield MD [address] [place] [address] [place] [phone] PCP - General Family Medicine 11/01/15 documented as of this encounter
--- OUTSIDE RECORDS SUMMARY | 2023-11-03 11:25 | External Medical Summary | Summary of Care ---
Author Name Unknown Organization [facility] Address [address] [facility] [place] [address] Phone [phone] Care Team Providers Care Digital Sales Manager Name Role Phone Jewels Greenfield MD Primary Care Provide r Reason for Visit * Reason Comments Other Encounter Details Date Type Department Care Team (Late st Contact Info) Description 11/01/2023 11:00 AM EST Nurse Only General Surgery, [facility] 132 [facility] [place] [address] [facility], Nurse Gen Surg [facility] 132 [facility] [place] [address] Other Allergies Active Allergy Reactions Criticality Noted Date [...] Strip 3 05/15/2022 Active OneTouch Delica Plus [id number] USE TO CHECK GLUCOSE ONCE DAILY 100 Each 3 05/15/2022 Active MarketBridgeTouch Verio Flex System w/Device KitIndications:Hypo glycemia Use [...] letty (HCC),APL (antiphospholipid syndrome) (HCC),Anticoagulati on management encounter,longterm current use of anticoagulant therapy TAKE UP [...] Next Due Pneumococcal Conjugate Vacci ne, 20-valent ([id number]) 05/30/2022 Pneumococcal Polysaccharide PPV23 (Pneumovax) 09/24/2012,07/08/2009(Deferred: Patient [...] on file documented as of this encounter Nursing Notes * Catherine Gusman CMA - 11/01/2023 11:31 AM EST Chief Complaint Patient presents with Other Patient came into office to check incision. Patient states that she does note some swelling under the bandage. Patient was uncomfortable removing bandage and requested to be seen. Gauze was removed from incision site. Tape that patient had applied had caused redness to the areas where it was applied. Patient is 24hrs s/p mass removal. Patient using Tylenol only with some relief. Incision site accessed. Sutures intact, small amount of swelling noted, redness to site. No drainage, fevers/chills. Patient educated to continue monitoring incision site. Patient educated that redness looks be to from the tape that was applied by patient at home. Patient instructed to stop using that tape and was given silk tape. Patient educated to continue monitoring the swelling as it was small amount. Rednesswas more prominent. Patient also educated to alternate Tylenol and Ibuprofen as the Ibuprofen can help with the swelling. Patient educated to remove dressing daily to look at the incision and contactus with any further questions/concerns. documented in this encounter Plan of Treatment Upcoming Encounters Date Type Department Care Team (Late st Contact Info) Description 11/06/2023 11:00 AM EST Anticoagulation Pharmacy, [facility] 132 [facility] [place] [address] [place] [facility] [address] [place] [address] 11/08/2023 11:00 AM EST Laboratory Laboratory, [address] [place] [phone] Henrik Sofias 132 [facility] [place] [address] 11/14/2023 11:00 AM EST Office Visit Dermatology [address] [place] [address] Briana Carlin PA-C [address] [place] [address] [place] [address] 11/19/2023 9:45 AM EST Office Visit General Surgery, [facility] [address] [place] [address] Angeline Garcia MD [address] [place] [address] 11/27/2023 8:45 AM EST Office Visit Hematology/Oncology [facility] 200 [facility] [place] [address] Ralph Barron MD 200 [facility] [place] [address] Scheduled Procedures Name Priority Associated Diagnoses Date/Ti [...] (FLU shot) (#1) 2023 Mammogram 07/13/2024 07/13/2023, 06/2 01/2022, 01/05/2021, Additional history exists TSH 10/04/2024 10/04/2023, 07/0 05/2023, 02/19/2023, Additional history exists Diabetes Screening 10/04/2026 10/04/2023, 0 02/19/2023, 12/11/2022, Additional history exists Lipid Panel 10/04/2028 10/04/2023, 0204/2023, 03/27/2022, Additional history exists DTaP,Tdap,and Td Vaccines [...] filedocumented as of this encounter Care Teams Digital Sales Manager Relationship Specialty Start Date End Date Jewels Greenfield MD [address] [place] [address] [place] [phone] PCP - General Family Medicine 11/01/15 documented as of this encounter
--- OUTSIDE RECORDS SUMMARY | 2023-11-03 11:25 | External Medical Summary | Summary of Care ---
Author Name Unknown Organization [facility] Address [address] [facility] [place] [address] Phone [phone] Care Team Providers Care Asset Liability Analyst Name Role Phone Jewels Greenfield MD Primary Care Provide r Reason for Visit * Reason Onset Date Comments Advice 11/01/2023 Encounter Details Date Type Department Care Team (Late st Contact Info) Description 11/01/2023 Telephone General Surgery, [facility] [address] [place] [address] Angeline Garcia MD [address] [place] [address] Advice Allergies Active Allergy Reactions Criticality Noted [...] Strip 3 05/15/2022 Active OneTouch Delica Plus [id number] USE TO CHECK GLUCOSE ONCE DAILY 100 Each 3 05/15/2022 Active [employer]el[employer] Interactive Verio Flex System w/Device KitIndications:Hypo glycemia Use [...] letty (HCC),APL (antiphospholipid syndrome) (HCC),Anticoagulati on management encounter,[facility] current use of anticoagulant therapy TAKE UP [...] Next Due Pneumococcal Conjugate Vacci ne, 20-valent ([id number]) 05/30/2022 Pneumococcal Polysaccharide PPV23 (Pneumovax) 09/24/2012,07/08/2009(Deferred: Patient [...] encounter Miscellaneous Notes * Telephone Encounter - Deysi Donis OSA - 11/01/2023 9:22 AM EST Patient had a mass removed on her left abdominal area on 10/31 and is having swelling. Please return call to patient. documented in this encounter Plan of Treatment Upcoming Encounters Date Type Department Care Team (Late st Contact Info) Description 11/06/2023 11:00 AM EST Anticoagulation Pharmacy, [facility] 132 [facility] [place] [address] [facility] [address] [place] [address] 11/08/2023 11:00 AM EST Laboratory Laboratory, [address] [place] [phone] [facility] [address] [place] [address] 11/14/2023 11:00 AM EST Office Visit Dermatology [address] [place] [address] Briana Carlin PA-C [address] [place] [address] [place] [address] 11/19/2023 9:45 AM EST Office Visit General Surgery, [facility] [address] [place] [address] Angeline Garcia MD [address] [place] [address] 11/27/2023 8:45 AM EST Office Visit Hematology/Oncology [facility] [place] [address] [place] [address] Ralph Barron MD 200 [facility] [place] [address] Scheduled Procedures Name Priority Associated Diagnoses Date/Ti [...] (FLU shot) (#1) 2023 Mammogram 07/13/2024 07/13/2023, 2 01/2022, 01/05/2021, Additional history exists TSH 10/04/2024 10/04/2023, 07/0 05/2023, 02/19/2023, Additional history exists Diabetes Screening 10/04/2026 10/04/2023, 0 02/19/2023, 12/11/2022, Additional history exists Lipid Panel 10/04/2028 10/04/2023, 02/0 04/2023, 03/27/2022, Additional history exists DTaP,Tdap,and Td [...] filedocumented as of this encounter Care Teams Asset Liability Analyst Relationship Specialty Start Date End Date Jewels Greenfield MD [address] [place] [address] [place] [phone] PCP - General Family Medicine 11/01/15 documented as of this encounter
--- OUTSIDE RECORDS SUMMARY | 2023-11-03 11:26 | External Medical Summary | Summary of Care ---
Author Name Unknown Organization [facility] Address [address] [facility] [place] [address] Phone [phone] Care Team Providers Care Ramp Manager Name Role Phone Jewels Greenfield MD Primary Care Provide r Reason for Visit * Reason Onset Date Comments Information 10/31/2023 Encounter Details Date Type Department Care Team (Late st Contact Info) Description 10/31/2023 Telephone General Surgery, [facility] [address] [place] [address] Angeline Garcia MD 132 [facility] [place] [address] Information Allergies Active Allergy Reactions Criticality Noted Date Comments Codeine Hives,Itching 06/07/2018 Morphine And Related 01/28/2008 documented as of this encounter (statuses as of 10/31/2023) Medications Medication Sig Dispensed Refills Start Date [...] Strip 3 05/15/2022 Active OneTouch Delica Plus [id number] USE TO CHECK GLUCOSE ONCE DAILY 100 Each 3 05/15/2022 Active [employer] Verio Flex System w/Device KitIndications:Hypo glycemia Use [...] letty (HCC),APL (antiphospholipid syndrome) (HCC),Anticoagulati on management encounter,group home current use of anticoagulant therapy TAKE UP [...] as of this encounter (statuses as of 10/31/2023) Active Problems Problem Noted Date Diagnosed Date [...] as of this encounter (statuses as of 10/31/2023) Resolved Problems Problem Noted Date Diagnosed Date Resolved Date Hepatic cirrhosis 07/14/2022 07/14/2022 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 BMI 34.0-34.9,adult 12/29/2010 02/23/20 18 OBESITY, BMI 30-34 (SEE ACTUAL BMI) 01/27/2010 12/29/2010 Overview: Per Obesity Taxonomy Dyslipidemia, goal to be determined 11/07/2007 12/29/2010 Esophageal reflux 10/02/2016 Otitis media 10/02/2016 Chronic mastoiditis 10/02/20 16 Calculus of gallbladder 02/03 documented as of this encounter (statuses as of 10/31/2023) Immunizations Name Administration Dates Next Due Pneumococcal Conjugate Vacci ne, 20-valent ([id number]) 05/30/2022 Pneumococcal Polysaccharide PPV23 (Pneumovax) 09/24/2012,07/08/2009(Deferred: Patient [...] Telephone Encounter - Deysi Donis OSA - 10/31/2023 1:50 PM EST The [place] blood bank called to report a positive antibody on the patient which means if she needs blood it wouldn't be available right away. She had surgery on 10/31 for an abdominal wall mass.They had to report it for her records. documented in this encounter Plan of Treatment Upcoming Encounters Date Type Department Care Team (Late st Contact Info) Description 11/06/2023 11:00 AM EST Anticoagulation Pharmacy, [facility] 132 [facility] [place] [address] [facility] 132 [facility] [place] [address] 11/08/2023 11:00 AM EST Laboratory Laboratory, [facility] 132 [facility] [place] [phone] [facility] 132 [facility] [place] [address] 11/14/2023 11:00 AM EST Office Visit Dermatology [address] [place] [address] Birana Carlin PA-C [address] [place] [address] [place] [address] 11/19/2023 9:45 AM EST Office Visit General Surgery, [facility] 132 [facility] [place] [address] Angeline Garcia MD [address] [place] [address] 11/27/2023 8:45 AM EST Office Visit Hematology/Oncology [facility] [place] 200 [facility] [place] [address] Ralph Barron MD 200 [place] [address] Scheduled Procedures Name Priority Associated Diagnoses Date/Ti [...] (FLU shot) (#1) 2023 Mammogram 07/13/2024 07/13/2023, 062 01/2022, 01/05/2021, Additional history exists TSH 10/04/2024 [...] filedocumented as of this encounter Care Teams Ramp Manager Relationship Specialty Start Date End Date Jewels Greenfield MD [address] [place] [address] [place] [phone] PCP - General Family Medicine 11/01/15 documented as of this encounter
--- OUTSIDE RECORDS SUMMARY | 2023-11-03 11:26 | External Medical Summary | Summary of Care ---
Author Name Unknown Organization [facility] Address [address] [facility] [place] [address] Phone [phone] Care Team Providers Care Dairy Truck Driver Name Role Phone Jewels Greenfield MD Primary Care Provide r Reason for Visit * Reason Onset Date Comments Information 10/31/2023 Encounter Details Date Type Department Care Team (Late st Contact Info) Description 10/31/2023 Telephone General Surgery, [facility] [address] [place] [address] Angeline Garcia MD 132 [facility] [place] [address] Information Allergies Active Allergy Reactions Criticality Noted [...] Strip 3 05/15/2022 Active OneTouch Delica Plus [id number] USE TO CHECK GLUCOSE ONCE DAILY 100 Each 3 05/15/2022 Active [employer] Verio Flex System w/Device KitIndications:Hypo glycemia Use [...] letty (HCC),APL (antiphospholipid syndrome) (HCC),Anticoagulati on management encounter,residential current use of anticoagulant therapy TAKE UP [...] Next Due Pneumococcal Conjugate Vacci ne, 20-valent ([id number]) 05/30/2022 Pneumococcal Polysaccharide PPV23 (Pneumovax) 09/24/2012,07/08/2009(Deferred: Patient [...] OSA - 10/31/2023 1:50 PM EST The [place] blood bank called to report a positive [...] 11:00 AM EST Anticoagulation Pharmacy, [facility] [address] [facility] [place] [address] [facility] [place] [address] 11/08/2023 11:00 AM EST Laboratory Laboratory, [facility] [address] [facility] [place] [phone] [facility] [place] [address] 11/14/2023 11:00 AM EST Office Visit Dermatology [address] [place] [address] Briana Carlin PA-C [address] [place] [address] [place] [address] 11/19/2023 9:45 AM EST Office Visit General Surgery, [facility] 132 [facility] [place] [address] Angeline Garcia MD [address] [place] [address] 11/27/2023 8:45 AM EST Office Visit Hematology/Oncology [facility] [place] 200 [facility] [place] [address] Ralph Barron MD 200 [place] [address] Scheduled Procedures Name Priority Associated Diagnoses Date/Ti [...] filedocumented as of this encounter Care Teams Dairy Truck Driver Relationship Specialty Start Date End Date Jewels Greenfield MD [address] [place] [address] [place] [phone] PCP - General Family Medicine 11/01/15 documented as of this encounter
--- NOTE | 2023-11-03 12:11 | Emergency Department Note ---
Impression & Plan Post op infection, Abdominal pain, Cellulitis ED Provider Note NAME: EVANGELINA DELEON AGE: 53 SEX: F : 1970 ARRIVES VIA: Walk-In INFORMANT: Patient ED PROVIDER(S): Tal Riggins DO CHIEF COMPLAINT: erythema and swelling left abdomen HPI: Patient is a 53-year-old female who presents to the ER following having a lipoma removed from the left mid abdomen by Dr. Garcia this past Sunday. Patient notes that she has had a postop infection before in the past and this feels the same.. Has been feeling hot and cold. Denies any headache or change in vision. No chest pain or shortness of breath. No dysuria, urgency, or frequency. No other exacerbating or remitting factors but does admit to cough congestion ADDITIONAL HISTORY OBTAINED: Per HPI Chronic Medical/Social Conditions Affecting Care: Per HPI PAST MEDICAL HISTORY:See Below PAST SURGICAL HISTORY:See Below FAMILY HISTORY:See Below SOCIAL HISTORY:See Below HOME MEDICATIONS:See Below ALLERGIES:See Below VITALS:See Below PHYSICAL EXAMINATION: GENERAL: Sitting up in bed, alert, well appearing, well nourished, no distress, non-toxic EYE EXAM: normal conjunctiva. PERRL and EOM's grossly intact. OROPHARYNX: no exudate, no erythema, lips, buccal mucosa, and tongue normal and mucous membranes are moist NECK: supple, no nuchal rigidity, no adenopathy, non-tender LUNGS: Clear to auscultation. Normal chest wall mechanics HEART: no murmurs, S1 normal and S2 normal ABDOMEN: abdomen soft, non-tender, normo-active bowel sounds, no masses, no rebound or guarding. Left mid abdomen midaxillary line with incision which is erythematous and swollen. Skin is warm and tender to palpation. UPPER EXTREMITIES: upper extremities are grossly normal. LOWER EXTREMITIES: No pitting edema. NEURO EXAM: Normal sensorium, cranial nerves II-XII grossly intact, normal speech, no gross weakness of arms, no gross weakness of legs. No drift. Finger to nose intact. Gross sensation intact. MEDICAL DECISION MAKING: Patient is a 53-year-old female who presents to the ER for pain and abdominal pain and erythema. IV was established blood work was obtained. Labs show mild leukopenia but no anemia. Thrombocytopenia at 80. BMP along LFTs bilirubin was unremarkable. Troponin was negative patient was given IV fluids and IV antibiotics. Updated bedside. Discussed with general surgery and the hospitalist for further evaluation management treatment. Patient will be taken to the OR for washout Consults/Care Managements Discussions: Per MDM Triage Nursing notes reviewed. Limited review of prior medical records performed Vital Signs: reviewed and remarkable for no significant abnormalities Differential diagnosis: Cellulitis, abscess, MRSA infection, DVT, necrotizing fasciitis, dermatitis, drug eruption, allergic reaction, as well as other pathologies. ER treatment provided: See below Diagnostics interpreted by me include EKG and cardiac monitoring as listed below: -Cardiac Monitoring: An order was placed for continuous cardiac monitoring. The monitor shows a rate of 62 with sinus rhythm. -ECG: none -Laboratory studies:Interpreted by me as stated above in MDM and shown below. 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 Chronic obstructive pulmonary disease HX-no longer uses inhaler DM type 2 (diabetes mellitus, type 2) denies Hypothyroidism APL (antiphospholipid syndrome) Chronic ITP (idiopathic thrombocytopenia) DX'D 2010-F/U DR [facility]ATA-[facility] Hyperlipidemia GERD (gastroesophageal reflux disease) Anxiety Surgical History Status post cholecystectomy History of myringotomy History of tonsillectomy and adenoidectomy History of tooth extraction History of colonoscopy History of bone marrow biopsy History of hysterectomy Family History Mother Diabetes Father Stroke Other No family history of adverse response to anesthesia Social History Smoking Status: Never smoker Tobacco Type: Cigarettes Cigarettes Per Day: 1 ppd- advised; Second Hand Exposure: No; Do You Dip or Chew Tobacco: No; Hx Alcohol Use: No Hx Substance Use: No Preferred Language: Filipino Communication Ability: Effective 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 Beliefs That Will Affect Care: None Current Living Situation: Family Current Living Situation Comment: brother current occupation: DOES NOT WORK Feels Safe at Home: Yes Assistive Devices: Denture - Upper, Denture - Lower and Glasses Allergies Allergies Allergy/AdvReac Type Severity Reaction Status Date / Time codeine Allergy Intermediate Hives Verified 10/31/23 06:08 morphine Allergy Mild itching Verified 10/31/23 06:08 Home Meds Home Medications Medication Instructions Recorded Confirmed Lactobacillus acidophilus 0 mg PO DAILY 08/30/22 11/03/23 acetaminophen 500 mg tablet 500 - 1,000 mg PO Q6H PRN q6 08/30/22 11/03/23 (Tylenol Extra Strength) levothyroxine 50 mcg tablet 50 mcg PO QAM 08/30/22 11/03/23 loratadine 10 mg tablet 10 mg PO QAM PRN Allergy Symptoms 08/30/22 11/03/23 multivitamin 1 tab PO Q OTHER DAY 08/30/22 11/03/23 pantoprazole 40 mg tablet,delayed 40 mg PO QAM 08/30/22 11/03/23 release simvastatin 20 mg tablet 20 mg PO HS 08/30/22 11/03/23 warfarin 5 mg tablet 10 mg PO HS 08/30/22 11/03/23 magnesium chloride 64 mg 64 mg PO QAM 10/23/23 11/03/23 (magnesium chloride) tablet enoxaparin 100 mg/mL subcutaneous 100 mg ONCE 10/31/23 11/03/23 syringe (Lovenox) Previous Rx's Medication Instructions Recorded tramadol 50 mg tablet 50 mg PO Q6H #14 tabs 10/31/23 Results & Data (ED) Vital Signs Vital Signs - 24 hr 11/03/23 11:48 11/03/23 15:54 Temperature 36.8 C Temperature Source Temporal Artery Scan Pulse Rate 78 Pulse Rate [Right Finger] 60 Respiratory Rate 18 18 Respiratory Effort / Characteristics Non-Labored Spontaneous Non-Labored Respiratory Depth Normal Normal Respiratory Pattern Regular Blood Pressure 107/66 Blood Pressure [Right Arm] 97/77 L Blood Pressure Mean 79 Blood Pressure Mean [Right Arm] 83 Blood Pressure Position Sitting Pulse Oximetry 97 96 Oxygen Delivery Method Room Air Room Air Sepsis Recent Fever Within 48 Hours No Sepsis New/Unexplained Change in Mental Status N/A Sepsis Action Taken by Nursing No Action Required Laboratory Data 11/03/23 12:25 11/03/23 12:25 Lab Results 11/03/23 Range/Units 12:25 WBC 4.17 L (4.8-10.8) K/ul RBC 4.14 L (4.20-5.40) M/uL Hgb 12.9 (12.0-16.0) g/dl Hct 38.4 (37.0-47.0) % MCV 92.8 (80.0-100.0) fL MCH 31.2 (25.0-34.0) pg MCHC 33.6 (32.0-36.0) g/dL RDW Std Deviation 48.6 H (36.4-46.3) fL RDW Coeff of Mitch 14.4 (11.5-14.5) % Plt Count 80 L (130-400) K/uL MPV 10.6 (9.4-12.4) fL Immature Gran % (Auto) 0.7 % Neut % (Auto) 65.0 % Lymph % (Auto) 24.9 % [place] % (Auto) 8.2 % Eos % (Auto) 1.0 % Baso % (Auto) 0.2 % Neut # (Auto) 2.71 (1.40-6.50) K/uL Lymph # (Auto) 1.04 L (1.20-3.40) K/uL [place] # (Auto) 0.34 (0.11-0.59) K/uL Eos # (Auto) 0.04 (0.00-0.50) K/uL Baso # (Auto) 0.01 (0.00-0.20) K/uL Immature Gran # (Auto) 0.03 (0.01-0.20) K/uL Sodium 138 (136-145) mmol/L Potassium 4.0 (3.5-5.1) mmol/L Chloride 104 (98-107) mmol/L Carbon Dioxide 27 (21-32) mmol/L Anion Gap 7 (3-11) BUN 7 (6-23) mg/dl Creatinine 0.77 (0.6-1.2) mg/dl Est Cr Clr Drug Dosing 99.6 ml/min Est GFR ( Amer) 101.5 ml/min Est GFR (Non-Af Amer) 87.5 ml/min BUN/Creatinine Ratio 9.1 L (10-20) Glucose 96 (70-99(Fasting)) mg/dl Lactate 1.1 (0.4-2.0) mmol/L Calcium 9.5 (8.6-10.3) mg/dl Magnesium 2.0 (1.7-2.4) mg/dl Total Bilirubin 0.6 (0.2-1.0) mg/dl Direct Bilirubin 0.1 (0-0.2) mg/dl AST 22 (13-39) U/L ALT 24 (7-52) U/L Alkaline Phosphatase 88 (34-104) U/L Troponin I High Sens < 2.3 (0-14) pg/ml Total Protein 7.8 (6.0-8.3) gm/dl Albumin 4.1 (3.4-5.0) gm/dl Procalcitonin < 0.05 (0-0.5) ng/ml Administered Medications Discontinued Medications Piperacillin Sod/Tazobactam Sod (Zosyn) 4.5 gm in 100 mls @ 200 mls/hr IV NOW ONE Stop: 11/03/23 13:02 Last Infusion: 11/03/23 14:59 Dose: Infused Documented By: Admin: 11/03/23 14:28 Dose: 200 mls/hr Documented By: MNE Imaging Data Radiologist's Impression: Abdomen Ultrasound 11/03/23 12:07 ABDOMINAL ULTRASOUND, LIMITED STUDY HISTORY: Acute left hip pain with soft tissue swelling post op site l abd. COMPARISON: CT abdomen and pelvis 03/29/2023 FINDINGS: Within the area of clinical concern there is increased echogenicity of the subcutaneous fat with dermal thickening. Complex hypoechoic ovoid wider than tall collection measures 9 x 4 x 6 cm with extension to the skin surface. This demonstrates no color flow. IMPRESSION: Complex subcutaneous collection suggestive of a hematoma versus abscess. ACT 112: Negative or not required by law. Electronically signed by: Arsh Acevedo M.D. 11/03/2023 1:47 PM Chest X-Ray 11/03/23 12:07 XR chest 1V not portable HISTORY: 53 years-old Female Sepsis acute sepsis COMPARISON: 11/10/2022 TECHNIQUE: PA view of the chest FINDINGS: Cardiomediastinal and hilar silhouettes are within normal limits. No pneumothorax, pleural effusion, airspace consolidation or overt pulmonary edema. Bones of the chest appear grossly intact. Surgical clips of the upper abdomen. IMPRESSION: No acute process. ACT 112: Negative or not required by law. The above report was generated using voice recognition software. It may contain grammatical, syntax or spelling errors. Electronically signed by: Arsh Acevedo M.D. 11/03/2023 12:30 PM Discharge Plan Visit Data Chief Complaint: Infection Stated Complaint: LEFT SIDE INCISION, INFECTED ED Provider: Tal Riggins Discharge Problem: Post op infection, Abdominal pain, Cellulitis Forms Stand Alone Forms: [facility] [employer] Prescriptions Prescriptions: No Action multivitamin Tablet 1 tab PO Q OTHER DAY acetaminophen [Tylenol Extra Strength] 500 mg Tablet 500 - 1,000 mg PO Q6H PRN (Reason: q6) levothyroxine 50 mcg tablet 50 mcg PO QAM Rx Instructions: TAKE 30 MIN BEFORE BREAKFAST pantoprazole 40 mg tablet,delayed release (DR/EC) 40 mg PO QAM simvastatin 20 mg tablet 20 mg PO HS warfarin 5 mg tablet 10 mg PO HS Lactobacillus acidophilus Capsule 0 mg PO DAILY loratadine 10 mg Tablet 10 mg PO QAM PRN (Reason: Allergy Symptoms) magnesium chloride 64 mg magnesium Tablet 64 mg PO QAM enoxaparin [Lovenox] 100 mg/mL Syringe 100 mg ONCE tramadol 50 mg tablet 50 mg PO Q6H Qty: 14 0RF Referrals Referrals: Jewels Greenfield MD [Primary Care Provider] - Discharge Problem: Post op infection Qualifiers: Encounter type: initial encounter Postoperative infection type: unspecified type Qualified Code(s): T81.40XA - Infection following a procedure, unspecified, initial encounter Abdominal pain Qualifiers: Abdominal location: unspecified location Qualified Code(s): R10.9 - Unspecified abdominal pain Cellulitis Qualifiers: Site of cellulitis: unspecified site Qualified Code(s): L03.90 - Cellulitis, unspecified
--- NOTE | 2023-11-03 12:32 | XRay Report ---
XR chest 1V not portable HISTORY: 53 years-old Female Sepsis acute sepsis COMPARISON: 11/10/2022 TECHNIQUE: PA view of the chest FINDINGS: Cardiomediastinal and hilar silhouettes are within normal limits. No pneumothorax, pleural effusion, airspace consolidation or overt pulmonary edema. Bones of the chest appear grossly intact. Surgical c lips of the upper abdomen. IMPRESSION: No acute process. ACT 112: Negative or not required by law. The above report was generated using voice recognition software. It may contain grammatical, syntax o r spelling errors. Electronically signed by: Arsh Acevedo M.D. 11/03/2023 12:30 PM
[2023-11-03] MEDS ORDERED: PIPERACILLIN/TAZOBACTAM 4.5 GM/100 ML BAG IV ONE (12:33)
[2023-11-03 12:49] LABS: Basophils # (auto) 0.01 K/uL (0.00-0.20); Basophils % (auto) 0.2 %; Eosinophils # (auto) 0.04 K/uL (0.00-0.50); Hematocrit (blood only) 38.4 % (37.0-47.0); Hemoglobin 12.9 g/dl (12.0-16.0); Immature Granulocytes # (auto) 0.03 K/uL (0.01-0.20); Immature Granulocytes % (auto) 0.7 %; Lymphocytes # (auto) 1.04 K/uL (1.20-3.40); Lymphocytes % (auto) 24.9 %; Mean Corpuscular Hemoglobin 31.2 pg (25.0-34.0); Mean Corpuscular Hgb Conc 33.6 g/dL (32.0-36.0); Mean Corpuscular Volume 92.8 fL (80.0-100.0); Mean Platelet Volume 10.6 fL (9.4-12.4); Monocytes # (auto) 0.34 K/uL (0.11-0.59); Monocytes % (auto) 8.2 %; Neutrophils # (auto) 2.71 K/uL (1.40-6.50); Platelet Count 80 K/uL (130-400); RDW Coefficient of Variation 14.4 % (11.5-14.5); RDW Standard Deviation 48.6 fL (36.4-46.3); Red Blood Count 4.14 M/uL (4.20-5.40); White Blood Count 4.17 K/ul (4.8-10.8)
[2023-11-03 13:05] LABS: Alanine Aminotransferase 24 U/L (7-52); Albumin Level 4.1 gm/dl (3.4-5.0); Alkaline Phosphatase 88 U/L (34-104); Anion Gap 7 (3-11); Aspartate Aminotransferase 22 U/L (13-39); BUN Creatinine Ratio 9.1 (10-20); Bilirubin Direct 0.1 mg/dl (0-0.2); Bilirubin,Total 0.6 mg/dl (0.2-1.0); Blood Urea Nitrogen 7 mg/dl (6-23); Calcium 9.5 mg/dl (8.6-10.3); Carbon Dioxide 27 mmol/L (21-32); Chloride 104 mmol/L (98-107); Creatinine Clr Calc Pharmacy 99.6 ml/min; Est GFR (African American) 101.5 ml/min; Est GFR (Non-African American) 87.5 ml/min; Glucose 96 mg/dl (70-99(Fasting)); Sodium 138 mmol/L (136-145); Total Protein 7.8 gm/dl (6.0-8.3)
[2023-11-03 13:11] LABS: Troponin I High Sensitivity < 2.3 pg/ml (0-14)
--- NOTE | 2023-11-03 13:50 | Ultrasound Report ---
ABDOMINAL ULTRASOUND, LIMITED STUDY HISTORY: Acute left hip pain with soft tissue swelling post op site l abd. COMPARISON: CT abdomen and pelvis 03/29/2023 FINDINGS: Within the area of clinical concern there is increased echogenicity of the subcutaneous fat with derm al thickening. Complex hypoechoic ovoid wider than tall collection measures 9 x 4 x 6 cm with extensi on to the skin surface. This demonstrates no color flow. IMPRESSION: Complex subcutaneous collection suggestive of a hematoma versus abscess. ACT 112: Negative or not required by law. Electronically signed by: Arsh Acevedo M.D. 11/03/2023 1:47 PM
[2023-11-03] MEDS ORDERED: MAGNESIUM HYDROXIDE SUSP 30 ML UDC PO PRN (15:06)
[2023-11-03] MEDS ORDERED: ALUMINUM/MAGNESIUM SUSP 30 ML UDC PO PRN (15:06)
[2023-11-03] MEDS ORDERED: ONDANSETRON INJ 2 MG/ML 2 ML VIAL IV PRN (15:06)
--- NOTE | 2023-11-03 15:17 | History & Physical Report ---
Date of Service November 03, 2023 Assessment & Plan (1) Superficial incisional infection of surgical site: (2) DM type 2 (diabetes mellitus, type 2): (3) Hyperlipidemia: (4) GERD (gastroesophageal reflux disease): (5) Hx of deep venous thrombosis: Plan Ms. Rios is a 53 year old female that presents to the ED today with complaints of incisional redness and tenderness. She underwent a left flank abdominal wall mass removal under the care of Dr. Garcia on Wednesday 10/31 which was reportedly uneventful. Additional past medical history includes H/O DVT (On Coumadin) diabetes mellitus, history of ITP, hypothyroidism, and GERD. Abdominal ultrasound revealed subcutaneous hematoma versus abscess. Chest x-ray negative for acute cardiopulmonary disease. Post operatively, she was ordered Lovenox SQ in addition to Coumadin, last dose was ordered for tonight. No leukocytosis, lactate normal, procalcitonin negative, troponin negative and otherwise no lab abnormalities. Patient is normotensive and afebrile no tachycardia and on room air. Does not meet sepsis criteria. On examination AAOx3 and in no apparent distress. (+) erythema left anterior abdomen approx 3 inch horizontal incision with erythematous edges and bloody output; covered with gauze and abd. Does not appear toxic. ED spoke with on-call general surgery, Dr. Sierra, who will see patient and was able to irrigate and pack her wound; will follow with wound orders. Patient was started empirically on IV Zosyn, will add Dapto for MRSA coverage and will order a diet and adjust abx baesd on cultures; will hold Coumadin and Lovenox for now. Superficial incisional infection of surgical site: Acute +incisional redness and tenderness, POD # 3 s/p removal of L flank abd wall mass removal under care of Dr. Garcia Abdominal ultrasound revealed subcutaneous hematoma versus abscess No leukocytosis, lactate normal, procalcitonin negative, troponin negative and otherwise no lab abnormalities Started Empirically on IV Zosyn; adjust based on wound culture results Add IV Dapto and adjust pending MRSA screen MRSA screen ordered blood and wound cultures ordered Diabetic and heart healthy diet Hold Coumadin for now; check PT/INR and restart in AM pending results Was prescribed Lovenox post op on 10/31; last dose tonight; hold all anticoagulation General surgery consulted and irrigated and packed her wound at bedside; will follow with wound orders History of DVT: Chronic Left leg Takes Coumadin; hold for overnight per surgery reccs DM type II: Chronic Diet controlled Diabetic and heart healthy diet HLD: Chronic Takes simvastatin; hold while on Daptomycin Hypothyroidism: Chronic Takes levothyroxine; continue GERD: Chronic Takes pantoprazole; continue Disposition: PCP: Dr. Greenfield CODE STATUS: Full code VTE prophylaxis: TEDS/SCDs for now I spent a total of 87 minutes coordinating, documenting, and providing care for this patient excluding time spent in the performance of separately billed serv ices. All of the aforementioned completed while collaborating with the assigned attending physician for a full treatment plan. Please see their addendum for further details. Admission and Anticipated Discharge Date Admission Date: delayed entry date of service noted above Attending Addendum: care coordinated with PADDY Jj please refer to her notes for full details, I agree with her notes patient seen and examined, records reviewed by myself as well diagnoses and plan of care as per above Hayden Ngo MD History of Present Illness Chief Complaint: redness/tenderness around incision site Primary Care Provider: Jewels Greenfield MD Ms. Rios is a 53 year old female that presents to the ED today with complaints of incisional redness and tenderness. She underwent a left flank abdominal wall mass removal under the care of Dr. Garcia on Wednesday 10/31 which was reportedly uneventful. Additional past medical history includes H/O DVT (On Coumadin) diabetes mellitus, history of ITP, hypothyroidism, and GERD. Abdominal ultrasound revealed subcutaneous hematoma versus abscess. Chest x-ray negative for acute cardiopulmonary disease. Post operatively, she was ordered Lovenox SQ in addition to Coumadin, last dose was ordered for tonight. No leukocytosis, lactate normal, procalcitonin negative, troponin negative and otherwise no lab abnormalities. Patient is normotensive and afebrile no tachycardia and on room air. Does not meet sepsis criteria. ON examination AAOx3 and in no apparent distress. (+) erythema left anterior abdomen approx 3 inch horizontal incision with erythematous edges and bloody output; covered with gauze and abd. Does not appear toxic. ED spoke with on-call general surgery, Dr. Sierra, who will see patient and was able to irrigate and pack her wound; will follow with wound orders. Patient was started empirically on IV Zosyn, will add Dapto for MRSA coverage and will order a diet and adjust abx baesd on cultures; will hold Coumadin and Lovenox for now. Patient will be admitted for further evaluation and management. Please see H&P for further details. Allergies Allergy/AdvReac Type Severity Reaction Status Date / Time codeine Allergy Intermediate Hives Verified 10/31/23 06:08 morphine Allergy Mild itching Verified 10/31/23 06:08 Home Medications Medication Instructions Recorded Confirmed Type Lactobacillus acidophilus 0 mg PO DAILY 08/30/22 11/03/23 History acetaminophen 500 mg tablet 500 - 1,000 mg PO Q6H PRN q6 08/30/22 11/03/23 History (Tylenol Extra Strength) levothyroxine 50 mcg tablet 50 mcg PO QAM 08/30/22 11/03/23 History loratadine 10 mg tablet 10 mg PO QAM PRN Allergy Symptoms 08/30/22 11/03/23 History multivitamin 1 tab PO Q OTHER DAY 08/30/22 11/03/23 History pantoprazole 40 mg tablet,delayed 40 mg PO QAM 08/30/22 11/03/23 History release simvastatin 20 mg tablet 20 mg PO HS 08/30/22 11/03/23 History warfarin 5 mg tablet 10 mg PO HS 08/30/22 11/03/23 History magnesium chloride 64 mg 64 mg PO QAM 10/23/23 11/03/23 History (magnesium chloride) tablet enoxaparin 100 mg/mL subcutaneous 100 mg ONCE 10/31/23 11/03/23 History syringe (Lovenox) tramadol 50 mg tablet 50 mg PO Q6H #14 tabs 10/31/23 11/03/23 Rx Past Med/Surg History Medical History (Updated 11/03/23 @ 16:13 by Tal Riggins DO) Superficial incisional infection of surgical site Hx of deep venous thrombosis hx- left leg On anticoagulant therapy Hx of migraines History of COVID-2020 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 Chronic obstructive pulmonary disease HX-no longer uses inhaler DM type 2 (diabetes mellitus, type 2) denies Hypothyroidism APL (antiphospholipid syndrome) Chronic ITP (idiopathic thrombocytopenia) DX'D 2010-F/U [facility] Hyperlipidemia GERD (gastroesophageal reflux disease) Anxiety Surgical History Status post cholecystectomy History of myringotomy History of tonsillectomy and adenoidectomy History of tooth extraction History of colonoscopy History of bone marrow biopsy History of hysterectomy Family History Mother Diabetes Father Stroke Other No family history of adverse response to anesthesia Social History Smoking Status: Former smoker Tobacco Type: Cigarettes Cigarettes Per Day: 1 ppd- advised; Second Hand Exposure: No; Do You Dip or Chew Tobacco: No; Hx Alcohol Use: Yes Alcohol type: beer Hx Substance Use: No Preferred Language: Tajik Communication Ability: Effective Dental Claims Processor Required: No Beliefs That Will Affect Care: None Current Living Situation: Family Current Living Situation Comment: brother current occupation: DOES NOT WORK Feels Safe at Home: Yes Assistive Devices: Denture - Upper, Denture - Lower and Glasses Review of Systems Review of Systems: Neuro: (-) Falls, trauma, slurred speech HEENT: (-) [place], dizziness, dysphagia, visual or auditory changes CV: (-) CP, palpitations, swelling Resp: (-) SOB GI: (-) appetite changes, N/V/D, bowel changes : (-) urinary changes Skin: (-) rashes Psych: (-) anxiety, depression Physical Exam Physical Exam: Neuro: AAOx4, PERRLA, no aphagia, memory changes, CNII-XII grossly intact HEENT: head normocephalic, moist mucus membranes CV: S1/S2, (-) M/G/R, (-) edema, cap refill < 3 seconds Resp: Lungs CTA in all wyatt. On RA GI: Abdomen S/NT/ND, Ax4 bowel sounds, (-) CVA tenderness Musculoskeletal: 5/5 B/L UE strength, 5/5 B/L LE strength. No gait disturbance Skin: (-) rashes , (+) erythema left anterior abdomen approx 3 inch horizontal incision with erythematous edges and bloody output; covered with gauze and abd Psych: euthymic mood Results & Data Results & Data Vital Signs (Past 12 Hours) Vital Signs Temp Pulse Resp BP Pulse Ox O2 Del Method 11/03/23 11:48 36.8 C 78 18 107/66 97 Room Air Laboratory Results Short CBC 11/03/23 Range/Units 12:25 WBC 4.17 L (4.8-10.8) K/ul Hgb 12.9 (12.0-16.0) g/dl Hct 38.4 (37.0-47.0) % Plt Count 80 L (130-400) K/uL BMP 11/03/23 12:25 Sodium 138 Potassium 4.0 Chloride 104 Carbon Dioxide 27 BUN 7 Creatinine 0.77 Glucose 96 Calcium 9.5 Liver Function 11/03/23 Range/Units 12:25 Total Bilirubin 0.6 (0.2-1.0) mg/dl Direct Bilirubin 0.1 (0-0.2) mg/dl AST 22 (13-39) U/L ALT 24 (7-52) U/L Alkaline Phosphatase 88 (34-104) U/L Albumin 4.1 (3.4-5.0) gm/dl Diagnostic Findings Abdomen Ultrasound 11/03/23 12:07 ABDOMINAL ULTRASOUND, LIMITED STUDY HISTORY: Acute left hip pain with soft tissue swelling post op site l abd. COMPARISON: CT abdomen and pelvis 03/29/2023 FINDINGS: Within the area of clinical concern there is increased echogenicity of the subcutaneous fat with dermal thickening. Complex hypoechoic ovoid wider than tall collection measures 9 x 4 x 6 cm with extension to the skin surface. This demonstrates no color flow. IMPRESSION: Complex subcutaneous collection suggestive of a hematoma versus abscess. ACT 112: Negative or not required by law. Electronically signed by: Arsh Acevedo M.D. 11/03/2023 1:47 PM Chest X-Ray 11/03/23 12:07 XR chest 1V not portable HISTORY: 53 years-old Female Sepsis acute sepsis COMPARISON: 11/10/2022 TECHNIQUE: PA view of the chest FINDINGS: Cardiomediastinal and hilar silhouettes are within normal limits. No pneumothorax, pleural effusion, airspace consolidation or overt pulmonary edema. Bones of the chest appear grossly intact. Surgical clips of the upper abdomen. IMPRESSION: No acute process. ACT 112: Negative or not required by law. The above report was generated using voice recognition software. It may contain grammatical, syntax or spelling errors. Electronically signed by: Arsh Acevedo M.D. 11/03/2023 12:30 PM Code Status & VTE Plan Code Status Full code in the event of cardiac or respiratory arrest VTE Prophylaxis Plan VTE Prophylaxis will be ordered: Yes
--- NOTE | 2023-11-03 15:29 | Surgery Consultation ---
Date of Consultation November 03, 2023 Assessment & Plan (1) Hematoma of abdominal wall: Drained at the bedside in the emergency room. Recommend IV antibiotics. Packing placed. Hold anticoagulation please. Will continue to follow (2) DM type 2 (diabetes mellitus, type 2): History of Present Illness History of Present Illness 53-year-old female who 3 days ago had a left flank soft tissue mass excised by Dr. Garcia. She did see him in the office today later complaining of pain. She now presents to the emergency room with increasing redness and pain as well as feeling like fever and chills. Imaging does reveal complex fluid collection consistent with hematoma or abscess. Allergies Allergy/AdvReac Type Severity Reaction Status Date / Time codeine Allergy Intermediate Hives Verified 10/31/23 06:08 morphine Allergy Mild itching Verified 10/31/23 06:08 Home Medications Medication Instructions Recorded Confirmed Type Lactobacillus acidophilus 0 mg PO DAILY 08/30/22 11/03/23 History acetaminophen 500 mg tablet 500 - 1,000 mg PO Q6H PRN q6 08/30/22 11/03/23 History (Tylenol Extra Strength) levothyroxine 50 mcg tablet 50 mcg PO QAM 08/30/22 11/03/23 History loratadine 10 mg tablet 10 mg PO QAM PRN Allergy Symptoms 08/30/22 11/03/23 History multivitamin 1 tab PO Q OTHER DAY 08/30/22 11/03/23 History pantoprazole 40 mg tablet,delayed 40 mg PO QAM 08/30/22 11/03/23 History release simvastatin 20 mg tablet 20 mg PO HS 08/30/22 11/03/23 History warfarin 5 mg tablet 10 mg PO HS 08/30/22 11/03/23 History magnesium chloride 64 mg 64 mg PO QAM 10/23/23 11/03/23 History (magnesium chloride) tablet enoxaparin 100 mg/mL subcutaneous 100 mg ONCE 10/31/23 11/03/23 History syringe (Lovenox) tramadol 50 mg tablet 50 mg PO Q6H #14 tabs 10/31/23 11/03/23 Rx Patient History Medical History (Updated 11/03/23 @ 15:28 by Yousuf Sierra, ) Superficial incisional infection of surgical site Hx of deep venous thrombosis hx- left leg On anticoagulant therapy Hx of migraines History of COVID-2020 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 Chronic obstructive pulmonary disease HX-no longer uses inhaler DM type 2 (diabetes mellitus, type 2) denies Hypothyroidism APL (antiphospholipid syndrome) Chronic ITP (idiopathic thrombocytopenia) DX'D 2010-F/U [facility] Hyperlipidemia GERD (gastroesophageal reflux disease) Anxiety Surgical History Status post cholecystectomy History of myringotomy History of tonsillectomy and adenoidectomy History of tooth extraction History of colonoscopy History of bone marrow biopsy History of hysterectomy Family History Mother Diabetes Father Stroke Other No family history of adverse response to anesthesia Social History Smoking Status: Never smoker Tobacco Type: Cigarettes Cigarettes Per Day: 1 ppd- advised; Second Hand Exposure: No; Do You Dip or Chew Tobacco: No; Hx Alcohol Use: No Hx Substance Use: No Preferred Language: Mauritanian Communication Ability: Effective Recreational Director Required: No Beliefs That Will Affect Care: None Current Living Situation: Family Current Living Situation Comment: brother current occupation: DOES NOT WORK Feels Safe at Home: Yes Assistive Devices: Denture - Upper, Denture - Lower and Glasses Physical Exam Constitutional: WD/WN, vitals as above no acute distress and not ill appearing Eyes: PERRL, conjunctivae normal, anicteric sclerae EOM intact bilaterally ENMT: external ear and nose normal, oropharynx normal Ears: no hearing impairment Neck: trachea midline, no thyromegaly Respiratory: normal respiratory effort; no respiratory distress and does not use accessory muscles Cardiovascular: Rate/Rhythm: regular rate and regular rhythm Gastrointestinal (Abdomen): Incision left flank. Large area of surrounding erythema that is warm to touch and tender. It is firm. Consistent with hematoma versus abscess Skin: no rashes, warm and dry Psychiatric: Orientation: alert, oriented x 3 and cooperative Results & Data Vital Signs (Past 12 Hours) Vital Signs Temp Pulse Resp BP Pulse Ox O2 Del Method 11/03/23 11:48 36.8 C 78 18 107/66 97 Room Air PG Care Time/CCT Total # of Minutes Spent Total Time Spent with Patient: Total time spent is greater than 50% in coordination of care (as documented) at patient's floor/unit and/or counseling patient: Coding Level of Care Code 55470 IN/OBS CONSULT LVL 3,45M Diagnoses Hematoma of abdominal wall S30.1XXA DM type 2 (diabetes mellitus, type 2) E11.9
--- NOTE | 2023-11-03 15:31 | Operative Report ---
PG Post Operative Report Pre & Post Diagnosis pre: post op hematoma post op: post op hematoma I identified the patient and participated in the time-out.: Yes Procedure evacuation of post operative hematoma Surgeon Yousuf Sierra, DO [employer] Representatives none Estimated Blood Loss 5 Findings Consistent with Post-Op Diagnosis Specimens none Description of Procedure After informed consent was obtained the patient was placed in a right lateral position. The area around the prior incision was sterilely prepped and draped with Betadine. The central sutures were opened using a Metzenbaum scissor. Blunt finger penetration was used to open the incision. Suction apparatus was used to evacuate several 100 cc of hematoma. Wound was irrigated and packed with quarter inch plain sterile gauze. Gauze and tape were used as a dressing. The patient tolerated the procedure well I attest to the content of the Intraoperative Record and any orders documented therein. Any exceptions are noted below.
[2023-11-03 18:27] LABS: INR 1.6 (0.9-1.1); Prothrombin Time 17.1 Seconds (9.0-12.0)
[2023-11-03] MEDS: DAPTOmycin 300 MG in SYRINGE 0 ML IV SCH (18:42)
[2023-11-03] MEDS: traMADol HCL 50 MG TABLET PO SCH ×2 (18:42→23:48)
[2023-11-03] MEDS: PIPERACILLIN/TAZOBACTAM 4.5 GM in DEXTROSE 5% MINI-B 100 ML IV SCH (19:48)
[2023-11-03 20:53] LABS: Appearance Urine Clear (Clear); Bacteria Urine Automated Negative (Negative); Bilirubin Urine Negative (Negative); Blood Urine 2+ (Negative); Color Urine Yellow; Epithelial Cell Urine Auto 20-30 /lpf (0-5); Glucose Urine UA Negative (Negative); Ketones Urine Negative (Negative); Leukocyte Esterase Urine Negative (Negative); Nitrite Urine Negative (Negative); RBC Urine Automated >30 /hpf (0-4); Specific Gravity Urine 1.017 (1.000-1.030); Urobilinogen Urine Negative (Negative); pH Urine 7.5 (4.5-7.5)
[2023-11-03 20:55] LABS: Protein Urine Trace (Negative)
[2023-11-03] MEDS ORDERED: SIMVASTATIN 20 MG TAB PO SCH (21:00)
[2023-11-04] MEDS: PIPERACILLIN/TAZOBACTAM 4.5 GM in DEXTROSE 5% MINI-B 100 ML IV SCH ×3 (04:53→19:50)
[2023-11-04] MEDS: LEVOTHYROXINE SODIUM 50 MCG TABLET PO SCH (05:23)
[2023-11-04] MEDS: traMADol HCL 50 MG TABLET PO SCH (05:23)
[2023-11-04 06:24] LABS: Hematocrit (blood only) 34.8 % (37.0-47.0); Hemoglobin 11.6 g/dl (12.0-16.0); Mean Corpuscular Hemoglobin 31.3 pg (25.0-34.0); Mean Corpuscular Hgb Conc 33.3 g/dL (32.0-36.0); Mean Corpuscular Volume 93.8 fL (80.0-100.0); Mean Platelet Volume 10.1 fL (9.4-12.4); Platelet Count 62 K/uL (130-400); RDW Coefficient of Variation 14.6 % (11.5-14.5); RDW Standard Deviation 49.1 fL (36.4-46.3); Red Blood Count 3.71 M/uL (4.20-5.40); White Blood Count 3.44 K/ul (4.8-10.8)
[2023-11-04 06:53] LABS: Albumin Globulin Ratio 1.1 (0.9-2); Albumin Level 3.6 gm/dl (3.4-5.0); BUN Creatinine Ratio 13.4 (10-20); Bilirubin,Total 0.6 mg/dl (0.2-1.0); Calcium 8.5 mg/dl (8.6-10.3); Est GFR (Non-African American) 81.1 ml/min; Globulin 3.3 gm/dl (2.5-4.0); Potassium 3.9 mmol/L (3.5-5.1); Total Protein 6.9 gm/dl (6.0-8.3)
--- NOTE | 2023-11-04 06:59 | Surgery Progress Note ---
Date of Service November 04, 2023 Assessment & Plan (1) Hematoma of abdominal wall: Plan: Status post incision and drainage of abdominal wall hematoma (postop day #1) Continue analgesics as needed Continue antiemetics as needed Continue local wound care Antibiotics in the form of daptomycin and Zosyn have been initiated. A wound culture has been sent and antibiotics be tailored based on these result Check a.m. labs when available Mobilize as able Doing better but not ready for discharge yet. Continue IV antibiotic and packing changes/wound care. Admission and Anticipated Discharge Date Admission Date: November 03, 2023 Subjective Patient is resting comfortably in bed. She notes minimal pain at her incision and drainage site. She denies any fevers, shakes, or chills. She denies any nausea or vomiting. Physical Exam Gastrointestinal (Abdomen): Abdomen is soft and nondistended. Incision and drainage site has packing in place. Results & Data Vital Signs (Past 12 Hours) Vital Signs Temp Pulse Resp BP Pulse Ox O2 Del Method 11/03/23 20:27 37.2 C 72 18 138/77 97 Room Air 11/03/23 19:50 Room Air PG Care Time/CCT Total # of Minutes Spent Total Time Spent with Patient: Total time spent is greater than 50% in coordination of care (as documented) at patient's floor/unit and/or counseling patient: Coding Level of Care Code 53112 Post Operative Follow-Up Diagnoses Hematoma of abdominal wall S30.1XXA
[2023-11-04] MEDS: POLYETHYLENE (MIRALAX) 17 GM PACK PO PRN (07:48)
[2023-11-04] MEDS: PANTOprazole 40 MG TAB PO SCH (07:49)
[2023-11-04] MEDS: ACETAMINOPHEN 325 MG TAB PO PRN (07:54)
--- NOTE | 2023-11-04 09:09 | Electrocardiogram Report ---
Test Reason : Blood Pressure : / mmHG Vent. Rate : 071 BPM Atrial Rate : 071 BPM P-R Int : 144 ms QRS Dur : 102 ms QT Int : 410 ms P-R-T Axes : 054 -31 049 degrees QTc Int : 445 ms Normal sinus rhythm Left axis deviation Abnormal ECG When compared with ECG of 10-NOV-2022 11:37, No significant change was found Confirmed by Nic Green ([id number]) on 11/04/2023 9:09:24 AM Referred By: REFERRED SELF Confirmed By:Nic Green
[2023-11-04] MEDS ORDERED: traMADol HCL 50 MG TABLET PO PRN (11:04)
[2023-11-04 17:22] LABS: Adenovirus PCR Not Detected (NotDetected); Bordetella parapertussis PCR Not Detected (NotDetected); Bordetella pertussis PCR Not Detected (NotDetected); Chlamydia pneumoniae PCR Not Detected (NotDetected); Coronavirus 229E PCR Not Detected (NotDetected); Coronavirus CoV-2 (COVID19)PCR Not Detected (NotDetected); Coronavirus HKU1 PCR Not Detected (NotDetected); Coronavirus NL63 PCR Not Detected (NotDetected); Coronavirus OC43PCR Not Detected (NotDetected); Human Metapneumovirus PCR Not Detected (NotDetected); Influenza A PCR Not Detected (NotDetected); Influenza B PCR Not Detected (NotDetected); Mycoplasma pneumoniae PCR Not Detected (NotDetected); Parainfluenza Virus 1 PCR Not Detected (NotDetected); Parainfluenza Virus 2 PCR Not Detected (NotDetected); Parainfluenza Virus 3 PCR Not Detected (NotDetected); Parainfluenza Virus 4 PCR Not Detected (NotDetected); Respiratory Syncytial VirusPCR Not Detected (NotDetected); Rhinovirus/Enterovirus PCR Not Detected (NotDetected)
[2023-11-04] MEDS: DAPTOmycin 300 MG in SYRINGE 0 ML IV SCH (18:30)
--- NOTE | 2023-11-04 19:34 | Hospitalist Progress Note ---
Date of Service November 04, 2023 delayed entry date of service noted above Assessment & Plan (1) Superficial incisional infection of surgical site: (2) DM type 2 (diabetes mellitus, type 2): (3) Hyperlipidemia: (4) GERD (gastroesophageal reflux disease): (5) Hx of deep venous thrombosis: Plan per admitting provider notes with addendum: Ms. Rios is a 53 year old female that presents to the ED today with complaints of incisional redness and tenderness. She underwent a left flank abdominal wall mass removal under the care of Dr. Garcia on Wednesday 10/31 which was reportedly uneventful. Additional past medical history includes H/O DVT (On Coumadin) diabetes mellitus, history of ITP, hypothyroidism, and GERD. Abdominal ultrasound revealed subcutaneous hematoma versus abscess. Chest x-ray negative for acute cardiopulmonary disease. Post operatively, she was ordered Lovenox SQ in addition to Coumadin, last dose was ordered for tonight. No leukocytosis, lactate normal, procalcitonin negative, troponin negative and otherwise no lab abnormalities. Patient is normotensive and afebrile no tachycardia and on room air. Does not meet sepsis criteria. On examination AAOx3 and in no apparent distress. (+) erythema left anterior abdomen approx 3 inch horizontal incision with erythematous edges and bloody output; covered with gauze and abd. Does not appear toxic. ED spoke with on-call general surgery, Dr. Sierra, who will see patient and was able to irrigate and pack her wound; will follow with wound orders. Patient was started empirically on IV Zosyn, will add Dapto for MRSA coverage and will order a diet and adjust abx baesd on cultures; will hold Coumadin and Lovenox for now. Superficial incisional infection of surgical site: Acute +incisional redness and tenderness, POD # 3 s/p removal of L flank abd wall mass removal under care of Dr. Garcia Abdominal ultrasound revealed subcutaneous hematoma versus abscess No leukocytosis, lactate normal, procalcitonin negative, troponin negative and otherwise no lab abnormalities Started Empirically on IV Zosyn; adjust based on wound culture results Add IV Dapto and adjust pending MRSA screen MRSA screen ordered blood and wound cultures ordered Diabetic and heart healthy diet Hold Coumadin for now; check PT/INR and restart in AM pending results Was prescribed Lovenox post op on 10/31; last dose tonight; hold all anticoagulation General surgery consulted and irrigated and packed her wound at bedside; will follow with wound orders 11/04 wound culture: pending continue Dapto + Zosyn ff up cultures Gen Surg on board History of DVT: Chronic Left leg Takes Coumadin on hold in light of hematoma last DVT many years ago per patient DM type II: Chronic Diet controlled Diabetic and heart healthy diet HLD: Chronic Takes simvastatin; hold while on Daptomycin Hypothyroidism: Chronic Takes levothyroxine; continue GERD: Chronic Takes pantoprazole; continue Disposition: PCP: Dr. Greenfield CODE STATUS: Full code VTE prophylaxis: TEDS/SCDs for now Admission and Anticipated Discharge Date Admission Date: November 03, 2023 Subjective ff up for lipoma with hematoma, etc seen resting in bed, comfortable pain over surgical site improving no chest pain, dyspnea, palpitations, dizziness no other symptoms Review of Systems Review of Systems: all noted and negative except for above Physical Exam Physical Exam: General- oriented x 3, not in distress, speaks in sentences with no effort or accessory muscle use Eyes- anicteric Neck- no JVD Lungs- clear breath sounds bilaterally, no rales/wheezes Heart- normal rate, regular rhythm; no murmurs Abdomen- normal bowel sounds, nondistended, soft, nontender surgical site: no active bleeding /discharge wound well opposed surrounding erythema improving Extremities- no pretibial edema, no calf tenderness Neuro- alert, oriented x 3; no gross focal neurologic deficits Skin- warm & dry Results & Data Results & Data Vital Signs (Past 12 Hours) Vital Signs Temp Pulse Resp BP Pulse Ox O2 Del Method 11/04/23 15:16 36.8 C 74 18 119/70 95 Room Air all noted and reviewed including below
[2023-11-05] MEDS: LEVOTHYROXINE SODIUM 50 MCG TABLET PO SCH (05:05)
[2023-11-05] MEDS: PIPERACILLIN/TAZOBACTAM 4.5 GM in DEXTROSE 5% MINI-B 100 ML IV SCH ×3 (05:05→19:40)
--- NOTE | 2023-11-05 05:45 | Surgery Progress Note ---
Date of Service November 05, 2023 Assessment & Plan (1) Hematoma of abdominal wall: Plan: Status post incision and drainage of abdominal wall hematoma (postop day #2) Continue analgesics as needed Continue antiemetics as needed Continue local wound care Antibiotics in the form of daptomycin and Zosyn have been initiated. A wound culture has been sent and antibiotics be tailored based on these result. Thus far Gram stain shows no organisms with culture results pending As above. Continues to improve. There is still some inflammation and redness but dramatically improved. I would recommend 1 more day of IV antibiotics. [facility] surgeons will be back tomorrow Admission and Anticipated Discharge Date Admission Date: November 03, 2023 Subjective Patient is resting comfortably in bed. She denies any worsening pain at her incision and drainage site. She denies any fevers, shakes, or chills Physical Exam Gastrointestinal (Abdomen): Incision and drainage site is packed with ribbon gauze. There is ecchymosis surrounding the site. Results & Data Vital Signs (Past 12 Hours) Vital Signs Temp Pulse Resp BP Pulse Ox O2 Del Method 11/04/23 20:00 Room Air 11/04/23 19:56 36.7 C 75 18 103/60 97 Room Air PG Care Time/CCT Total # of Minutes Spent Total Time Spent with Patient: Total time spent is greater than 50% in coordination of care (as documented) at patient's floor/unit and/or counseling patient: Coding Level of Care Code 91964 Post Operative Follow-Up Diagnoses Hematoma of abdominal wall S30.1XXA
[2023-11-05] MEDS: POLYETHYLENE (MIRALAX) 17 GM PACK PO PRN (07:50)
[2023-11-05] MEDS: PANTOprazole 40 MG TAB PO SCH (07:56)
[2023-11-05] MEDS: ACETAMINOPHEN 325 MG TAB PO PRN (15:26)
--- NOTE | 2023-11-05 17:22 | Hospitalist Progress Note ---
Date of Service November 05, 2023 Assessment & Plan (1) Superficial incisional infection of surgical site: (2) DM type 2 (diabetes mellitus, type 2): (3) Hyperlipidemia: (4) GERD (gastroesophageal reflux disease): (5) Hx of deep venous thrombosis: Plan (1) Superficial incisional infection of surgical site: (2) DM type 2 (diabetes mellitus, type 2): (3) Hyperlipidemia: (4) GERD (gastroesophageal reflux disease): (5) Hx of deep venous thrombosis: Plan per admitting provider notes with addendum: Ms. Rios is a 53 year old female that presents to the ED today with complaints of incisional redness and tenderness. She underwent a left flank abdominal wall mass removal under the care of Dr. Garcia on Wednesday 10/31 which was reportedly uneventful. Additional past medical history includes H/O DVT (On Coumadin) diabetes mellitus, history of ITP, hypothyroidism, and GERD. Abdominal ultrasound revealed subcutaneous hematoma versus abscess. Chest x-ray negative for acute cardiopulmonary disease. Post operatively, she was ordered Lovenox SQ in addition to Coumadin, last dose was ordered for tonight. No leukocytosis, lactate normal, procalcitonin negative, troponin negative and otherwise no lab abnormalities. Patient is normotensive and afebrile no tachycardia and on room air. Does not meet sepsis criteria. On examination AAOx3 and in no apparent distress. (+) erythema left anterior abdomen approx 3 inch horizontal incision with erythematous edges and bloody output; covered with gauze and abd. Does not appear toxic. ED spoke with on-call general surgery, Dr. Sierra, who will see patient and was able to irrigate and pack her wound; will follow with wound orders. Patient was started empirically on IV Zosyn, will add Dapto for MRSA coverage and will order a diet and adjust abx baesd on cultures; will hold Coumadin and Lovenox for now. Superficial incisional infection of surgical site: Acute +incisional redness and tenderness, POD # 3 s/p removal of L flank abd wall mass removal under care of Dr. Garcia Abdominal ultrasound revealed subcutaneous hematoma versus abscess No leukocytosis, lactate normal, procalcitonin negative, troponin negative and otherwise no lab abnormalities Started Empirically on IV Zosyn; adjust based on wound culture results Add IV Dapto and adjust pending MRSA screen MRSA screen ordered blood and wound cultures ordered Diabetic and heart healthy diet Hold Coumadin for now; check PT/INR and restart in AM pending results Was prescribed Lovenox post op on 10/31; last dose tonight; hold all anticoagulation General surgery consulted and irrigated and packed her wound at bedside; will follow with wound orders 11/05 wound culture: pending continue Dapto + Zosyn ff up cultures Gen Surg on board History of DVT: Chronic Left leg Takes Coumadin on hold in light of hematoma last DVT many years ago per patient DM type II: Chronic Diet controlled Diabetic and heart healthy diet HLD: Chronic Takes simvastatin; hold while on Daptomycin Hypothyroidism: Chronic Takes levothyroxine; continue GERD: Chronic Takes pantoprazole; continue Disposition: PCP: Dr. Greenfield CODE STATUS: Full code VTE prophylaxis: TEDS/SCDs for now Admission and Anticipated Discharge Date Admission Date: November 03, 2023 Subjective ff up for hematoma, s/p evacuation, recent lipoma removal, etc seen resting in bed, comfortable states she is improving overall pain improving gradually no chest pain, dyspnea, palpitations, dizziness no other symptoms Review of Systems Review of Systems: all noted and negative except for above Physical Exam Physical Exam: General- oriented x 3, not in distress, speaks in sentences with no effort or accessory muscle use Eyes- anicteric Neck- no JVD Lungs- clear breath sounds bilaterally, no rales/wheezes Heart- normal rate, regular rhythm; no murmurs Abdomen- normal bowel sounds, nondistended, soft, nontender Extremities- no pretibial edema, no calf tenderness Neuro- alert, oriented x 3; no gross focal neurologic deficits Skin- warm & dry Results & Data Results & Data Vital Signs (Past 12 Hours) Vital Signs Temp Pulse Resp BP Pulse Ox O2 Del Method 11/05/23 15:12 37.2 C 71 18 111/70 98 Room Air 11/05/23 06:36 36.9 C 82 18 111/68 99 Room Air all noted and reviewed including below
[2023-11-05] MEDS ORDERED: MAGNESIUM OXIDE 400 MG TAB PO ONE (20:02)
[2023-11-06] MEDS: PIPERACILLIN/TAZOBACTAM 4.5 GM in DEXTROSE 5% MINI-B 100 ML IV SCH (04:58)
[2023-11-06] MEDS: LEVOTHYROXINE SODIUM 50 MCG TABLET PO SCH (04:58)
[2023-11-06] MEDS: PANTOprazole 40 MG TAB PO SCH (07:55)
[2023-11-06 08:43] LABS: Basophils # (auto) 0.01 K/uL (0.00-0.20); Basophils % (auto) 0.2 %; Eosinophils # (auto) 0.05 K/uL (0.00-0.50); Eosinophils % (auto) 1.2 %; Hematocrit (blood only) 33.8 % (37.0-47.0); Hemoglobin 11.5 g/dl (12.0-16.0); Immature Granulocytes # (auto) 0.05 K/uL (0.01-0.20); Immature Granulocytes % (auto) 1.2 %; Lymphocytes # (auto) 0.99 K/uL (1.20-3.40); Lymphocytes % (auto) 24.1 %; Mean Corpuscular Hemoglobin 31.5 pg (25.0-34.0); Mean Corpuscular Volume 92.6 fL (80.0-100.0); Mean Platelet Volume 10.2 fL (9.4-12.4); Monocytes # (auto) 0.43 K/uL (0.11-0.59); Monocytes % (auto) 10.5 %; Neutrophils # (auto) 2.57 K/uL (1.40-6.50); Neutrophils % (auto) 62.8 %; Platelet Count 76 K/uL (130-400); RDW Coefficient of Variation 14.5 % (11.5-14.5); RDW Standard Deviation 49.1 fL (36.4-46.3); Red Blood Count 3.65 M/uL (4.20-5.40)
[2023-11-06] MEDS: ADVANCED PROBIOTIC 1250 MG CAPSULE PO SCH (09:52)
[2023-11-06] MEDS: CLINDAMYCIN HCL 150 MG CAP PO SCH ×3 (10:41→19:52)
--- NOTE | 2023-11-06 10:45 | Surgery Progress Note ---
Date of Service November 06, 2023 Assessment & Plan (1) Hematoma of abdominal wall: Plan: Assessment: F/U incision hematoma S/P resection left abdominal wall mass. pt feels better, no fever, tolerated diet, plan: pt can be discharged home today, F/U [facility] wound care center, F/U ok next week. Admission and Anticipated Discharge Date Admission Date: November 03, 2023 Subjective F/U S/P resection left abdominal wall hematoma, pt developed incision hematoma. pt is doing better, no feer, tolerated diet, wound culture negative. Physical Exam Constitutional: WD/WN, vitals as above Eyes: PERRL, conjunctivae normal, anicteric sclerae Neck: trachea midline, no thyromegaly Respiratory: normal respiratory effort, lungs clear to auscultation Cardiovascular: RRR, no murmur, no edema Gastrointestinal (Abdomen): partial opening on wound, packing with gauze, mild redness, no drainage. Neurologic: patellar DTR's 2+ bilat, sensation intact Psychiatric: A+Ox3, euthymic affect Results & Data Vital Signs (Past 12 Hours) Vital Signs Temp Pulse Resp BP Pulse Ox O2 Del Method 11/06/23 07:46 37.2 C 73 16 101/68 97 Room Air Laboratory Results Lab Results 11/03/23 11/03/23 11/03/23 Range/Units 12:25 16:03 17:33 WBC 4.17 L (4.8-10.8) K/ul RBC 4.14 L (4.20-5.40) M/uL Hgb 12.9 (12.0-16.0) g/dl Hct 38.4 (37.0-47.0) % MCV 92.8 (80.0-100.0) fL MCH 31.2 (25.0-34.0) pg MCHC 33.6 (32.0-36.0) g/dL RDW Std Deviation 48.6 H (36.4-46.3) fL RDW Coeff of Mitch 14.4 (11.5-14.5) % Plt Count 80 L (130-400) K/uL MPV 10.6 (9.4-12.4) fL Immature Gran % (Auto) 0.7 % Neut % (Auto) 65.0 % Lymph % (Auto) 24.9 % [place] % (Auto) 8.2 % Eos % (Auto) 1.0 % Baso % (Auto) 0.2 % Neut # (Auto) 2.71 (1.40-6.50) K/uL Lymph # (Auto) 1.04 L (1.20-3.40) K/uL [place] # (Auto) 0.34 (0.11-0.59) K/uL Eos # (Auto) 0.04 (0.00-0.50) K/uL Baso # (Auto) 0.01 (0.00-0.20) K/uL Immature Gran # (Auto) 0.03 (0.01-0.20) K/uL PT 17.1 H (9.0-12.0) Seconds INR 1.6 H (0.9-1.1) Sodium 138 (136-145) mmol/L Potassium 4.0 (3.5-5.1) mmol/L Chloride 104 (98-107) mmol/L Carbon Dioxide 27 (21-32) mmol/L Anion Gap 7 (3-11) BUN 7 (6-23) mg/dl Creatinine 0.77 (0.6-1.2) mg/dl Est Cr Clr Drug Dosing 99.6 ml/min Est GFR ( Amer) 101.5 ml/min Est GFR (Non-Af Amer) 87.5 ml/min BUN/Creatinine Ratio 9.1 L (10-20) Glucose 96 (70-99(Fasting)) mg/dl Lactate 1.1 (0.4-2.0) mmol/L Calcium 9.5 (8.6-10.3) mg/dl Magnesium 2.0 (1.7-2.4) mg/dl Total Bilirubin 0.6 (0.2-1.0) mg/dl Direct Bilirubin 0.1 (0-0.2) mg/dl AST 22 (13-39) U/L ALT 24 (7-52) U/L Alkaline Phosphatase 88 (34-104) U/L Troponin I High Sens < 2.3 (0-14) pg/ml Total Protein 7.8 (6.0-8.3) gm/dl Albumin 4.1 (3.4-5.0) gm/dl Globulin (2.5-4.0) gm/dl Albumin/Globulin Ratio (0.9-2) Procalcitonin < 0.05 (0-0.5) ng/ml Urine Color Urine Appearance (Clear) Urine pH (4.5-7.5) Ur Specific [place] (1.000-1.030) Urine Protein (Negative) Urine Glucose (UA) (Negative) Urine Ketones (Negative) Urine Blood (Negative) Urine Nitrite (Negative) Urine Bilirubin (Negative) Urine Urobilinogen (Negative) Ur Leukocyte Esterase (Negative) Urine WBC (Auto) (0-5) /hpf Urine RBC (Auto) (0-4) /hpf U Hyaline Cast (Auto) (0-5) /lpf U Epithel Cells (Auto) (0-5) /lpf Urine Bacteria (Auto) (Negative) Nasal Screen MRSA (PCR) Negative (Negative) Adenovirus (PCR) (NotDetected) B. pertussis DNA (PCR) (NotDetected) B.parapertussis DNA PCR (NotDetected) C. pneumoniae DNA (PCR) (NotDetected) Coronavirus OC43 (PCR) (NotDetected) Coronavirus HKU1 (PCR) (NotDetected) Coronavirus 229E (PCR) (NotDetected) SARS-CoV-2 (PCR) (NotDetected) Coronavirus NL63 (PCR) (NotDetected) Human Metapneumovir PCR (NotDetected) Influenza Type A (PCR) (NotDetected) Influenza Type B (PCR) (NotDetected) M. pneumoniae (PCR) (NotDetected) Parainfluenza 1 (PCR) (NotDetected) Parainfluenza 2 (PCR) (NotDetected) Parainfluenza 3 (PCR) (NotDetected) Parainfluenza 4 (PCR) (NotDetected) RSV (PCR) (NotDetected) Entero/Rhino (PCR) (NotDetected) 11/03/23 11/04/23 11/04/23 Range/Units Unknown 05:48 16:15 WBC 3.44 L (4.8-10.8) K/ul RBC 3.71 L (4.20-5.40) M/uL Hgb 11.6 L (12.0-16.0) g/dl Hct 34.8 L (37.0-47.0) % MCV 93.8 (80.0-100.0) fL MCH 31.3 (25.0-34.0) pg MCHC 33.3 (32.0-36.0) g/dL RDW Std Deviation 49.1 H (36.4-46.3) fL RDW Coeff of Mitch 14.6 H (11.5-14.5) % Plt Count 62 L (130-400) K/uL MPV 10.1 (9.4-12.4) fL Immature Gran % (Auto) % Neut % (Auto) % Lymph % (Auto) % [place] % (Auto) % Eos % (Auto) % Baso % (Auto) % Neut # (Auto) (1.40-6.50) K/uL Lymph # (Auto) (1.20-3.40) K/uL [place] # (Auto) (0.11-0.59) K/uL Eos # (Auto) (0.00-0.50) K/uL Baso # (Auto) (0.00-0.20) K/uL Immature Gran # (Auto) (0.01-0.20) K/uL PT (9.0-12.0) Seconds INR (0.9-1.1) Sodium 138 (136-145) mmol/L Potassium 3.9 (3.5-5.1) mmol/L Chloride 105 (98-107) mmol/L Carbon Dioxide 27 (21-32) mmol/L Anion Gap 6 (3-11) BUN 11 (6-23) mg/dl Creatinine 0.82 (0.6-1.2) mg/dl Est Cr Clr Drug Dosing 93.0 ml/min Est GFR ( Amer) 94.0 ml/min Est GFR (Non-Af Amer) 81.1 ml/min BUN/Creatinine Ratio 13.4 (10-20) Glucose 103 H (70-99(Fasting)) mg/dl Lactate (0.4-2.0) mmol/L Calcium 8.5 L (8.6-10.3) mg/dl Magnesium (1.7-2.4) mg/dl Total Bilirubin 0.6 (0.2-1.0) mg/dl Direct Bilirubin (0-0.2) mg/dl AST 18 (13-39) U/L ALT 19 (7-52) U/L Alkaline Phosphatase 83 (34-104) U/L Troponin I High Sens (0-14) pg/ml Total Protein 6.9 (6.0-8.3) gm/dl Albumin 3.6 (3.4-5.0) gm/dl Globulin 3.3 (2.5-4.0) gm/dl Albumin/Globulin Ratio 1.1 (0.9-2) Procalcitonin (0-0.5) ng/ml Urine Color Yellow Urine Appearance Clear (Clear) Urine pH 7.5 (4.5-7.5) Ur Specific [place] 1.017 (1.000-1.030) Urine Protein Trace H (Negative) Urine Glucose (UA) Negative (Negative) Urine Ketones Negative (Negative) Urine Blood 2+ H (Negative) Urine Nitrite Negative (Negative) Urine Bilirubin Negative (Negative) Urine Urobilinogen Negative (Negative) Ur Leukocyte Esterase Negative (Negative) Urine WBC (Auto) 1-5 (0-5) /hpf Urine RBC (Auto) >30 H (0-4) /hpf U Hyaline Cast (Auto) 1-5 (0-5) /lpf U Epithel Cells (Auto) 20-30 H (0-5) /lpf Urine Bacteria (Auto) Negative (Negative) Nasal Screen MRSA (PCR) (Negative) Adenovirus (PCR) Not Detected (NotDetected) B. pertussis DNA (PCR) Not Detected (NotDetected) B.parapertussis DNA PCR Not Detected (NotDetected) C. pneumoniae DNA (PCR) Not Detected (NotDetected) Coronavirus OC43 (PCR) Not Detected (NotDetected) Coronavirus HKU1 (PCR) Not Detected (NotDetected) Coronavirus 229E (PCR) Not Detected (NotDetected) SARS-CoV-2 (PCR) Not Detected (NotDetected) Coronavirus NL63 (PCR) Not Detected (NotDetected) Human Metapneumovir PCR Not Detected (NotDetected) Influenza Type A (PCR) Not Detected (NotDetected) Influenza Type B (PCR) Not Detected (NotDetected) M. pneumoniae (PCR) Not Detected (NotDetected) Parainfluenza 1 (PCR) Not Detected (NotDetected) Parainfluenza 2 (PCR) Not Detected (NotDetected) Parainfluenza 3 (PCR) Not Detected (NotDetected) Parainfluenza 4 (PCR) Not Detected (NotDetected) RSV (PCR) Not Detected (NotDetected) Entero/Rhino (PCR) Not Detected (NotDetected) 11/06/23 Range/Units 07:29 WBC 4.10 L (4.8-10.8) K/ul RBC 3.65 L (4.20-5.40) M/uL Hgb 11.5 L (12.0-16.0) g/dl Hct 33.8 L (37.0-47.0) % MCV 92.6 (80.0-100.0) fL MCH 31.5 (25.0-34.0) pg MCHC 34.0 (32.0-36.0) g/dL RDW Std Deviation 49.1 H (36.4-46.3) fL RDW Coeff of Mitch 14.5 (11.5-14.5) % Plt Count 76 L (130-400) K/uL MPV 10.2 (9.4-12.4) fL Immature Gran % (Auto) 1.2 % Neut % (Auto) 62.8 % Lymph % (Auto) 24.1 % [place] % (Auto) 10.5 % Eos % (Auto) 1.2 % Baso % (Auto) 0.2 % Neut # (Auto) 2.57 (1.40-6.50) K/uL Lymph # (Auto) 0.99 L (1.20-3.40) K/uL [place] # (Auto) 0.43 (0.11-0.59) K/uL Eos # (Auto) 0.05 (0.00-0.50) K/uL Baso # (Auto) 0.01 (0.00-0.20) K/uL Immature Gran # (Auto) 0.05 (0.01-0.20) K/uL PT (9.0-12.0) Seconds INR (0.9-1.1) Sodium (136-145) mmol/L Potassium (3.5-5.1) mmol/L Chloride (98-107) mmol/L Carbon Dioxide (21-32) mmol/L Anion Gap (3-11) BUN (6-23) mg/dl Creatinine (0.6-1.2) mg/dl Est Cr Clr Drug Dosing ml/min Est GFR ( Amer) ml/min Est GFR (Non-Af Amer) ml/min BUN/Creatinine Ratio (10-20) Glucose (70-99(Fasting)) mg/dl Lactate (0.4-2.0) mmol/L Calcium (8.6-10.3) mg/dl Magnesium (1.7-2.4) mg/dl Total Bilirubin (0.2-1.0) mg/dl Direct Bilirubin (0-0.2) mg/dl AST (13-39) U/L ALT (7-52) U/L Alkaline Phosphatase (34-104) U/L Troponin I High Sens (0-14) pg/ml Total Protein (6.0-8.3) gm/dl Albumin (3.4-5.0) gm/dl Globulin (2.5-4.0) gm/dl Albumin/Globulin Ratio (0.9-2) Procalcitonin (0-0.5) ng/ml Urine Color Urine Appearance (Clear) Urine pH (4.5-7.5) Ur Specific [place] (1.000-1.030) Urine Protein (Negative) Urine Glucose (UA) (Negative) Urine Ketones (Negative) Urine Blood (Negative) Urine Nitrite (Negative) Urine Bilirubin (Negative) Urine Urobilinogen (Negative) Ur Leukocyte Esterase (Negative) Urine WBC (Auto) (0-5) /hpf Urine RBC (Auto) (0-4) /hpf U Hyaline Cast (Auto) (0-5) /lpf U Epithel Cells (Auto) (0-5) /lpf Urine Bacteria (Auto) (Negative) Nasal Screen MRSA (PCR) (Negative) Adenovirus (PCR) (NotDetected) B. pertussis DNA (PCR) (NotDetected) B.parapertussis DNA PCR (NotDetected) C. pneumoniae DNA (PCR) (NotDetected) Coronavirus OC43 (PCR) (NotDetected) Coronavirus HKU1 (PCR) (NotDetected) Coronavirus 229E (PCR) (NotDetected) SARS-CoV-2 (PCR) (NotDetected) Coronavirus NL63 (PCR) (NotDetected) Human Metapneumovir PCR (NotDetected) Influenza Type A (PCR) (NotDetected) Influenza Type B (PCR) (NotDetected) M. pneumoniae (PCR) (NotDetected) Parainfluenza 1 (PCR) (NotDetected) Parainfluenza 2 (PCR) (NotDetected) Parainfluenza 3 (PCR) (NotDetected) Parainfluenza 4 (PCR) (NotDetected) RSV (PCR) (NotDetected) Entero/Rhino (PCR) (NotDetected) Diagnostic Findings ABDOMINAL ULTRASOUND, LIMITED STUDY HISTORY: Acute left hip pain with soft tissue swelling post op site l abd. COMPARISON: CT abdomen and pelvis 03/29/2023 FINDINGS: Within the area of clinical concern there is increased echogenicity of the subcutaneous fat with dermal thickening. Complex hypoechoic ovoid wider than tall collection measures 9 x 4 x 6 cm with extension to the skin surface. This demonstrates no color flow. IMPRESSION: Complex subcutaneous collection suggestive of a hematoma versus abscess. ACT 112: Negative or not required by law. Electronically signed by: Arsh Acevedo M.D. 11/03/2023 1:47 PM Dictated: 11/03/23 134 Transcribed: 11/03/23 134
[2023-11-06 12:07] LABS: INR 1.3 (0.9-1.1); Prothrombin Time 14.4 Seconds (9.0-12.0)
--- NOTE | 2023-11-06 17:46 | Hospitalist Progress Note ---
Date of Service November 06, 2023 Assessment & Plan (1) Superficial incisional infection of surgical site: (2) DM type 2 (diabetes mellitus, type 2): (3) Hyperlipidemia: (4) GERD (gastroesophageal reflux disease): (5) Hx of deep venous thrombosis: Plan (1) Superficial incisional infection of surgical site: (2) DM type 2 (diabetes mellitus, type 2): (3) Hyperlipidemia: (4) GERD (gastroesophageal reflux disease): (5) Hx of deep venous thrombosis: Plan per admitting provider notes with addendum: Ms. Rios is a 53 year old female that presents to the ED today with complaints of incisional redness and tenderness. She underwent a left flank abdominal wall mass removal under the care of Dr. Garcia on Wednesday 10/31 which was reportedly uneventful. Additional past medical history includes H/O DVT (On Coumadin) diabetes mellitus, history of ITP, hypothyroidism, and GERD. Abdominal ultrasound revealed subcutaneous hematoma versus abscess. Chest x-ray negative for acute cardiopulmonary disease. Post operatively, she was ordered Lovenox SQ in addition to Coumadin, last dose was ordered for tonight. No leukocytosis, lactate normal, procalcitonin negative, troponin negative and otherwise no lab abnormalities. Patient is normotensive and afebrile no tachycardia and on room air. Does not meet sepsis criteria. On examination AAOx3 and in no apparent distress. (+) erythema left anterior abdomen approx 3 inch horizontal incision with erythematous edges and bloody output; covered with gauze and abd. Does not appear toxic. ED spoke with on-call general surgery, Dr. Sierra, who will see patient and was able to irrigate and pack her wound; will follow with wound orders. Patient was started empirically on IV Zosyn, will add Dapto for MRSA coverage and will order a diet and adjust abx baesd on cultures; will hold Coumadin and Lovenox for now. Superficial incisional infection of surgical site: Acute +incisional redness and tenderness, POD # 3 s/p removal of L flank abd wall mass removal under care of Dr. Garcia Abdominal ultrasound revealed subcutaneous hematoma versus abscess No leukocytosis, lactate normal, procalcitonin negative, troponin negative and otherwise no lab abnormalities Started Empirically on IV Zosyn; adjust based on wound culture results Add IV Dapto and adjust pending MRSA screen MRSA screen ordered blood and wound cultures ordered Diabetic and heart healthy diet Hold Coumadin for now; check PT/INR and restart in AM pending results Was prescribed Lovenox post op on 10/31; last dose tonight; hold all anticoagulation General surgery consulted and irrigated and packed her wound at bedside; will follow with wound orders 11/06 wound culture: negative patient reports developing areas of rash on the lower extremities with Zosyn transition from Zosyn to Clindamycin 450 mg p.o. 3 times daily x 5 more days Cleared by general surgery for discharge, follow-up with Dr. Garcia in 1 week Wound care service consulted, needs to follow-up with wound care center in 1 week History of DVT, antiphospholipid antibody syndrome Chronic Left leg Advised by car installations supervisor, Dr. Ralph Barron to resume Coumadin with Lovenox bridge after excision of lipoma Discussed with [facility] pharmacist Nita Navarro Patient to resume Lovenox postop instructions starting today as follows: November 06 Lovenox injection 100 mg at 8 PM Coumadin 20 mg at bedtime November 07 Lovenox injection 100 milligram at 8 AM and 8PM Coumadin 15 mg at bedtime November 08 Lovenox 100 mg at 8 AM and 8 PM Restart regular dose of Coumadin 10 mg daily Follow-up with Coumadin clinic on November 08 DM type II: Chronic Diet controlled Diabetic and heart healthy diet HLD: Chronic Takes simvastatin; hold while on Daptomycin Hypothyroidism: Chronic Takes levothyroxine; continue GERD: Chronic Takes pantoprazole; continue Disposition: Charge to home Follow-up with PCP in [address] Choi in 1 week Coumadin clinic on November 08 plan of care discussed with patient in detail and at length all questions answered she is understanding, agreeable, comfortable with the plan of care Admission and Anticipated Discharge Date Admission Date: November 03, 2023 Subjective Follow-up for hematoma from surgical wound, recent lipoma removal on the left side of the abdominal wall, etc. Seen sitting up in bed, comfortable, not in distress States she feels better overall Left-sided abdominal wall surgical site pain improving Ambulating with no problems No fevers or chills no chest pain, dyspnea, palpitations, dizziness Review of Systems Review of Systems: all noted and negative except for above Physical Exam Physical Exam: General- oriented x 3, not in distress, speaks in sentences with no effort or accessory muscle use Eyes- anicteric Neck- no JVD Lungs- clear breath sounds bilaterally, no rales/wheezes Heart- normal rate, regular rhythm; no murmurs Abdomen- normal bowel sounds, nondistended, soft, nontender Extremities- no pretibial edema, no calf tenderness Neuro- alert, oriented x 3; no gross focal neurologic deficits Skin- warm & dry Results & Data Results & Data Vital Signs (Past 12 Hours) Vital Signs Temp Pulse Resp BP Pulse Ox O2 Del Method 11/06/23 13:22 36.6 C 72 16 119/75 98 Room Air 11/06/23 07:46 37.2 C 73 16 101/68 97 Room Air all noted and reviewed including below
[2023-11-06] MEDS: MAGNESIUM CHLORIDE W/CALCIUM 64MG DELAYED REL TAB PO SCH (18:11)
[2023-11-06] MEDS ORDERED: ENOXAPARIN 100 MG/1ML SYR SQ ONE (20:00)
[2023-11-06] MEDS ORDERED: WARFARIN SOD 10 MG TAB PO ONE (21:00)
[2023-11-07] MEDS: LEVOTHYROXINE SODIUM 50 MCG TABLET PO SCH (05:20)
[2023-11-07 07:28] LABS: Basophils # (auto) 0.01 K/uL (0.00-0.20); Basophils % (auto) 0.2 %; Eosinophils # (auto) 0.07 K/uL (0.00-0.50); Eosinophils % (auto) 1.6 %; Hematocrit (blood only) 35.1 % (37.0-47.0); Hemoglobin 11.7 g/dl (12.0-16.0); Immature Granulocytes # (auto) 0.04 K/uL (0.01-0.20); Immature Granulocytes % (auto) 0.9 %; Lymphocytes # (auto) 0.68 K/uL (1.20-3.40); Lymphocytes % (auto) 15.2 %; Mean Corpuscular Hemoglobin 31.5 pg (25.0-34.0); Mean Corpuscular Hgb Conc 33.3 g/dL (32.0-36.0); Mean Corpuscular Volume 94.4 fL (80.0-100.0); Mean Platelet Volume 10.5 fL (9.4-12.4); Monocytes % (auto) 8.9 %; Neutrophils # (auto) 3.27 K/uL (1.40-6.50); Neutrophils % (auto) 73.2 %; Platelet Count 72 K/uL (130-400); RDW Coefficient of Variation 14.6 % (11.5-14.5); RDW Standard Deviation 50.2 fL (36.4-46.3); Red Blood Count 3.72 M/uL (4.20-5.40); White Blood Count 4.47 K/ul (4.8-10.8)
[2023-11-07] MEDS: ACETAMINOPHEN 325 MG TAB PO PRN (07:42)
[2023-11-07 07:49] LABS: INR 1.2 (0.9-1.1); Prothrombin Time 13.5 Seconds (9.0-12.0)
[2023-11-07] MEDS ORDERED: ENOXAPARIN 100 MG/1ML SYR SQ SCH (08:00)
[2023-11-07 08:05] LABS: Anion Gap 7 (3-11); BUN Creatinine Ratio 13.1 (10-20); Blood Urea Nitrogen 11 mg/dl (6-23); Calcium 9.1 mg/dl (8.6-10.3); Carbon Dioxide 25 mmol/L (21-32); Chloride 104 mmol/L (98-107); Creatinine Clr Calc Pharmacy 90.8 ml/min; Est GFR (African American) 91.3 ml/min; Est GFR (Non-African American) 78.8 ml/min; Glucose 99 mg/dl (70-99(Fasting)); Sodium 136 mmol/L (136-145)
[2023-11-07] MEDS: ADVANCED PROBIOTIC 1250 MG CAPSULE PO SCH (08:12)
[2023-11-07] MEDS: CLINDAMYCIN HCL 150 MG CAP PO SCH ×2 (08:12→15:05)
[2023-11-07] MEDS: PANTOprazole 40 MG TAB PO SCH (08:12)
[2023-11-07] MEDS: MAGNESIUM CHLORIDE W/CALCIUM 64MG DELAYED REL TAB PO SCH (08:12)
--- NOTE | 2023-11-07 11:29 | Surgery Progress Note ---
Date of Service November 07, 2023 Assessment & Plan (1) Hematoma of abdominal wall: Plan: Assessment: F/U incision hematoma S/P resection left abdominal wall mass. pt feels better, no fever, tolerated diet, plan: pt can be discharged home today, F/U [facility] wound care [facility], F/U me next week. 11/07/2023 11:27 AM F/U incision hematoma S/P resection left abdominal wall mass. pt feels better, no fever, tolerated diet, plan: pt can be discharged home today, F/U [facility] wound care center for dressing change F/U me on 11/19/2023. [phone] sign off today, please call with questions and concerns. Thanks. Admission and Anticipated Discharge Date Admission Date: November 03, 2023 Subjective pt is doing fine, no fever, pt feels better, Physical Exam Constitutional: WD/WN, vitals as above Eyes: PERRL, conjunctivae normal, anicteric sclerae Neck: trachea midline, no thyromegaly Respiratory: normal respiratory effort, lungs clear to auscultation Cardiovascular: RRR, no murmur, no edema Skin: the wound is dry, less redness, Neurologic: patellar DTR's 2+ bilat, sensation intact Psychiatric: A+Ox3, euthymic affect Results & Data Vital Signs (Past 12 Hours) Vital Signs Temp Pulse Resp BP Pulse Ox O2 Del Method 11/07/23 08:38 37.4 C 80 16 106/57 L 98 Room Air Laboratory Results Lab Results 11/03/23 11/03/23 11/03/23 Range/Units 12:25 16:03 17:33 WBC 4.17 L (4.8-10.8) K/ul RBC 4.14 L (4.20-5.40) M/uL Hgb 12.9 (12.0-16.0) g/dl Hct 38.4 (37.0-47.0) % MCV 92.8 (80.0-100.0) fL MCH 31.2 (25.0-34.0) pg MCHC 33.6 (32.0-36.0) g/dL RDW Std Deviation 48.6 H (36.4-46.3) fL RDW Coeff of Mitch 14.4 (11.5-14.5) % Plt Count 80 L (130-400) K/uL MPV 10.6 (9.4-12.4) fL Immature Gran % (Auto) 0.7 % Neut % (Auto) 65.0 % Lymph % (Auto) 24.9 % Menard % (Auto) 8.2 % Eos % (Auto) 1.0 % Baso % (Auto) 0.2 % Neut # (Auto) 2.71 (1.40-6.50) K/uL Lymph # (Auto) 1.04 L (1.20-3.40) K/uL Menard # (Auto) 0.34 (0.11-0.59) K/uL Eos # (Auto) 0.04 (0.00-0.50) K/uL Baso # (Auto) 0.01 (0.00-0.20) K/uL Immature Gran # (Auto) 0.03 (0.01-0.20) K/uL PT 17.1 H (9.0-12.0) Seconds INR 1.6 H (0.9-1.1) Sodium 138 (136-145) mmol/L Potassium 4.0 (3.5-5.1) mmol/L Chloride 104 (98-107) mmol/L Carbon Dioxide 27 (21-32) mmol/L Anion Gap 7 (3-11) BUN 7 (6-23) mg/dl Creatinine 0.77 (0.6-1.2) mg/dl Est Cr Clr Drug Dosing 99.6 ml/min Est GFR ( Amer) 101.5 ml/min Est GFR (Non-Af Amer) 87.5 ml/min BUN/Creatinine Ratio 9.1 L (10-20) Glucose 96 (70-99(Fasting)) mg/dl Lactate 1.1 (0.4-2.0) mmol/L Calcium 9.5 (8.6-10.3) mg/dl Magnesium 2.0 (1.7-2.4) mg/dl Total Bilirubin 0.6 (0.2-1.0) mg/dl Direct Bilirubin 0.1 (0-0.2) mg/dl AST 22 (13-39) U/L ALT 24 (7-52) U/L Alkaline Phosphatase 88 (34-104) U/L Troponin I High Sens < 2.3 (0-14) pg/ml Total Protein 7.8 (6.0-8.3) gm/dl Albumin 4.1 (3.4-5.0) gm/dl Globulin (2.5-4.0) gm/dl Albumin/Globulin Ratio (0.9-2) Procalcitonin < 0.05 (0-0.5) ng/ml Urine Color Urine Appearance (Clear) Urine pH (4.5-7.5) Ur Specific [place] (1.000-1.030) Urine Protein (Negative) Urine Glucose (UA) (Negative) Urine Ketones (Negative) Urine Blood (Negative) Urine Nitrite (Negative) Urine Bilirubin (Negative) Urine Urobilinogen (Negative) Ur Leukocyte Esterase (Negative) Urine WBC (Auto) (0-5) /hpf Urine RBC (Auto) (0-4) /hpf U Hyaline Cast (Auto) (0-5) /lpf U Epithel Cells (Auto) (0-5) /lpf Urine Bacteria (Auto) (Negative) Nasal Screen MRSA (PCR) Negative (Negative) Adenovirus (PCR) (NotDetected) B. pertussis DNA (PCR) (NotDetected) B.parapertussis DNA PCR (NotDetected) C. pneumoniae DNA (PCR) (NotDetected) Coronavirus OC43 (PCR) (NotDetected) Coronavirus HKU1 (PCR) (NotDetected) Coronavirus 229E (PCR) (NotDetected) SARS-CoV-2 (PCR) (NotDetected) Coronavirus NL63 (PCR) (NotDetected) Human Metapneumovir PCR (NotDetected) Influenza Type A (PCR) (NotDetected) Influenza Type B (PCR) (NotDetected) M. pneumoniae (PCR) (NotDetected) Parainfluenza 1 (PCR) (NotDetected) Parainfluenza 2 (PCR) (NotDetected) Parainfluenza 3 (PCR) (NotDetected) Parainfluenza 4 (PCR) (NotDetected) RSV (PCR) (NotDetected) Entero/Rhino (PCR) (NotDetected) 12/30/23 12/31/23 12/31/23 Range/Units Unknown 05:48 16:15 WBC 3.44 L (4.8-10.8) K/ul RBC 3.71 L (4.20-5.40) M/uL Hgb 11.6 L (12.0-16.0) g/dl Hct 34.8 L (37.0-47.0) % MCV 93.8 (80.0-100.0) fL MCH 31.3 (25.0-34.0) pg MCHC 33.3 (32.0-36.0) g/dL RDW Std Deviation 49.1 H (36.4-46.3) fL RDW Coeff of Mitch 14.6 H (11.5-14.5) % Plt Count 62 L (130-400) K/uL MPV 10.1 (9.4-12.4) fL Immature Gran % (Auto) % Neut % (Auto) % Lymph % (Auto) % Menard % (Auto) % Eos % (Auto) % Baso % (Auto) % Neut # (Auto) (1.40-6.50) K/uL Lymph # (Auto) (1.20-3.40) K/uL [place]ard # (Auto) (0.11-0.59) K/uL Eos # (Auto) (0.00-0.50) K/uL Baso # (Auto) (0.00-0.20) K/uL Immature Gran # (Auto) (0.01-0.20) K/uL PT (9.0-12.0) Seconds INR (0.9-1.1) Sodium 138 (136-145) mmol/L Potassium 3.9 (3.5-5.1) mmol/L Chloride 105 (98-107) mmol/L Carbon Dioxide 27 (21-32) mmol/L Anion Gap 6 (3-11) BUN 11 (6-23) mg/dl Creatinine 0.82 (0.6-1.2) mg/dl Est Cr Clr Drug Dosing 93.0 ml/min Est GFR ( Amer) 94.0 ml/min Est GFR (Non-Af Amer) 81.1 ml/min BUN/Creatinine Ratio 13.4 (10-20) Glucose 103 H (70-99(Fasting)) mg/dl Lactate (0.4-2.0) mmol/L Calcium 8.5 L (8.6-10.3) mg/dl Magnesium (1.7-2.4) mg/dl Total Bilirubin 0.6 (0.2-1.0) mg/dl Direct Bilirubin (0-0.2) mg/dl AST 18 (13-39) U/L ALT 19 (7-52) U/L Alkaline Phosphatase 83 (34-104) U/L Troponin I High Sens (0-14) pg/ml Total Protein 6.9 (6.0-8.3) gm/dl Albumin 3.6 (3.4-5.0) gm/dl Globulin 3.3 (2.5-4.0) gm/dl Albumin/Globulin Ratio 1.1 (0.9-2) Procalcitonin (0-0.5) ng/ml Urine Color Yellow Urine Appearance Clear (Clear) Urine pH 7.5 (4.5-7.5) Ur Specific [place] 1.017 (1.000-1.030) Urine Protein Trace H (Negative) Urine Glucose (UA) Negative (Negative) Urine Ketones Negative (Negative) Urine Blood 2+ H (Negative) Urine Nitrite Negative (Negative) Urine Bilirubin Negative (Negative) Urine Urobilinogen Negative (Negative) Ur Leukocyte Esterase Negative (Negative) Urine WBC (Auto) 1-5 (0-5) /hpf Urine RBC (Auto) >30 H (0-4) /hpf U Hyaline Cast (Auto) 1-5 (0-5) /lpf U Epithel Cells (Auto) 20-30 H (0-5) /lpf Urine Bacteria (Auto) Negative (Negative) Nasal Screen MRSA (PCR) (Negative) Adenovirus (PCR) Not Detected (NotDetected) B. pertussis DNA (PCR) Not Detected (NotDetected) B.parapertussis DNA PCR Not Detected (NotDetected) C. pneumoniae DNA (PCR) Not Detected (NotDetected) Coronavirus OC43 (PCR) Not Detected (NotDetected) Coronavirus HKU1 (PCR) Not Detected (NotDetected) Coronavirus 229E (PCR) Not Detected (NotDetected) SARS-CoV-2 (PCR) Not Detected (NotDetected) Coronavirus NL63 (PCR) Not Detected (NotDetected) Human Metapneumovir PCR Not Detected (NotDetected) Influenza Type A (PCR) Not Detected (NotDetected) Influenza Type B (PCR) Not Detected (NotDetected) M. pneumoniae (PCR) Not Detected (NotDetected) Parainfluenza 1 (PCR) Not Detected (NotDetected) Parainfluenza 2 (PCR) Not Detected (NotDetected) Parainfluenza 3 (PCR) Not Detected (NotDetected) Parainfluenza 4 (PCR) Not Detected (NotDetected) RSV (PCR) Not Detected (NotDetected) Entero/Rhino (PCR) Not Detected (NotDetected) 11/06/23 11/06/23 11/07/23 Range/Units 07:29 11:05 06:45 WBC 4.10 L 4.47 L (4.8-10.8) K/ul RBC 3.65 L 3.72 L (4.20-5.40) M/uL Hgb 11.5 L 11.7 L (12.0-16.0) g/dl Hct 33.8 L 35.1 L (37.0-47.0) % MCV 92.6 94.4 (80.0-100.0) fL MCH 31.5 31.5 (25.0-34.0) pg MCHC 34.0 33.3 (32.0-36.0) g/dL RDW Std Deviation 49.1 H 50.2 H (36.4-46.3) fL RDW Coeff of Mitch 14.5 14.6 H (11.5-14.5) % Plt Count 76 L 72 L (130-400) K/uL MPV 10.2 10.5 (9.4-12.4) fL Immature Gran % (Auto) 1.2 0.9 % Neut % (Auto) 62.8 73.2 % Lymph % (Auto) 24.1 15.2 % [place] % (Auto) 10.5 8.9 % Eos % (Auto) 1.2 1.6 % Baso % (Auto) 0.2 0.2 % Neut # (Auto) 2.57 3.27 (1.40-6.50) K/uL Lymph # (Auto) 0.99 L 0.68 L (1.20-3.40) K/uL [place] # (Auto) 0.43 0.40 (0.11-0.59) K/uL Eos # (Auto) 0.05 0.07 (0.00-0.50) K/uL Baso # (Auto) 0.01 0.01 (0.00-0.20) K/uL Immature Gran # (Auto) 0.05 0.04 (0.01-0.20) K/uL PT 14.4 H 13.5 H (9.0-12.0) Seconds INR 1.3 H 1.2 H (0.9-1.1) Sodium 136 (136-145) mmol/L Potassium TNP (3.5-5.1) mmol/L Chloride 104 (98-107) mmol/L Carbon Dioxide 25 (21-32) mmol/L Anion Gap 7 (3-11) BUN 11 (6-23) mg/dl Creatinine 0.84 (0.6-1.2) mg/dl Est Cr Clr Drug Dosing 90.8 ml/min Est GFR ( Amer) 91.3 ml/min Est GFR (Non-Af Amer) 78.8 ml/min BUN/Creatinine Ratio 13.1 (10-20) Glucose 99 (70-99(Fasting)) mg/dl Lactate (0.4-2.0) mmol/L Calcium 9.1 (8.6-10.3) mg/dl Magnesium (1.7-2.4) mg/dl Total Bilirubin (0.2-1.0) mg/dl Direct Bilirubin (0-0.2) mg/dl AST (13-39) U/L ALT (7-52) U/L Alkaline Phosphatase (34-104) U/L Troponin I High Sens (0-14) pg/ml Total Protein (6.0-8.3) gm/dl Albumin (3.4-5.0) gm/dl Globulin (2.5-4.0) gm/dl Albumin/Globulin Ratio (0.9-2) Procalcitonin (0-0.5) ng/ml Urine Color Urine Appearance (Clear) Urine pH (4.5-7.5) Ur Specific [place] (1.000-1.030) Urine Protein (Negative) Urine Glucose (UA) (Negative) Urine Ketones (Negative) Urine Blood (Negative) Urine Nitrite (Negative) Urine Bilirubin (Negative) Urine Urobilinogen (Negative) Ur Leukocyte Esterase (Negative) Urine WBC (Auto) (0-5) /hpf Urine RBC (Auto) (0-4) /hpf U Hyaline Cast (Auto) (0-5) /lpf U Epithel Cells (Auto) (0-5) /lpf Urine Bacteria (Auto) (Negative) Nasal Screen MRSA (PCR) (Negative) Adenovirus (PCR) (NotDetected) B. pertussis DNA (PCR) (NotDetected) B.parapertussis DNA PCR (NotDetected) C. pneumoniae DNA (PCR) (NotDetected) Coronavirus OC43 (PCR) (NotDetected) Coronavirus HKU1 (PCR) (NotDetected) Coronavirus 229E (PCR) (NotDetected) SARS-CoV-2 (PCR) (NotDetected) Coronavirus NL63 (PCR) (NotDetected) Human Metapneumovir PCR (NotDetected) Influenza Type A (PCR) (NotDetected) Influenza Type B (PCR) (NotDetected) M. pneumoniae (PCR) (NotDetected) Parainfluenza 1 (PCR) (NotDetected) Parainfluenza 2 (PCR) (NotDetected) Parainfluenza 3 (PCR) (NotDetected) Parainfluenza 4 (PCR) (NotDetected) RSV (PCR) (NotDetected) Entero/Rhino (PCR) (NotDetected) 11/07/23 Range/Units 08:27 WBC (4.8-10.8) K/ul RBC (4.20-5.40) M/uL Hgb (12.0-16.0) g/dl Hct (37.0-47.0) % MCV (80.0-100.0) fL MCH (25.0-34.0) pg MCHC (32.0-36.0) g/dL RDW Std Deviation (36.4-46.3) fL RDW Coeff of Mitch (11.5-14.5) % Plt Count (130-400) K/uL MPV (9.4-12.4) fL Immature Gran % (Auto) % Neut % (Auto) % Lymph % (Auto) % [place] % (Auto) % Eos % (Auto) % Baso % (Auto) % Neut # (Auto) (1.40-6.50) K/uL Lymph # (Auto) (1.20-3.40) K/uL [place] # (Auto) (0.11-0.59) K/uL Eos # (Auto) (0.00-0.50) K/uL Baso # (Auto) (0.00-0.20) K/uL Immature Gran # (Auto) (0.01-0.20) K/uL PT (9.0-12.0) Seconds INR (0.9-1.1) Sodium (136-145) mmol/L Potassium 4.2 (3.5-5.1) mmol/L Chloride (98-107) mmol/L Carbon Dioxide (21-32) mmol/L Anion Gap (3-11) BUN (6-23) mg/dl Creatinine (0.6-1.2) mg/dl Est Cr Clr Drug Dosing ml/min Est GFR ( Amer) ml/min Est GFR (Non-Af Amer) ml/min BUN/Creatinine Ratio (10-20) Glucose (70-99(Fasting)) mg/dl Lactate (0.4-2.0) mmol/L Calcium (8.6-10.3) mg/dl Magnesium (1.7-2.4) mg/dl Total Bilirubin (0.2-1.0) mg/dl Direct Bilirubin (0-0.2) mg/dl AST (13-39) U/L ALT (7-52) U/L Alkaline Phosphatase (34-104) U/L Troponin I High Sens (0-14) pg/ml Total Protein (6.0-8.3) gm/dl Albumin (3.4-5.0) gm/dl Globulin (2.5-4.0) gm/dl Albumin/Globulin Ratio (0.9-2) Procalcitonin (0-0.5) ng/ml Urine Color Urine Appearance (Clear) Urine pH (4.5-7.5) Ur Specific [place] (1.000-1.030) Urine Protein (Negative) Urine Glucose (UA) (Negative) Urine Ketones (Negative) Urine Blood (Negative) Urine Nitrite (Negative) Urine Bilirubin (Negative) Urine Urobilinogen (Negative) Ur Leukocyte Esterase (Negative) Urine WBC (Auto) (0-5) /hpf Urine RBC (Auto) (0-4) /hpf U Hyaline Cast (Auto) (0-5) /lpf U Epithel Cells (Auto) (0-5) /lpf Urine Bacteria (Auto) (Negative) Nasal Screen MRSA (PCR) (Negative) Adenovirus (PCR) (NotDetected) B. pertussis DNA (PCR) (NotDetected) B.parapertussis DNA PCR (NotDetected) C. pneumoniae DNA (PCR) (NotDetected) Coronavirus OC43 (PCR) (NotDetected) Coronavirus HKU1 (PCR) (NotDetected) Coronavirus 229E (PCR) (NotDetected) SARS-CoV-2 (PCR) (NotDetected) Coronavirus NL63 (PCR) (NotDetected) Human Metapneumovir PCR (NotDetected) Influenza Type A (PCR) (NotDetected) Influenza Type B (PCR) (NotDetected) M. pneumoniae (PCR) (NotDetected) Parainfluenza 1 (PCR) (NotDetected) Parainfluenza 2 (PCR) (NotDetected) Parainfluenza 3 (PCR) (NotDetected) Parainfluenza 4 (PCR) (NotDetected) RSV (PCR) (NotDetected) Entero/Rhino (PCR) (NotDetected)
--- NOTE | 2023-11-07 15:23 | Hospitalist Progress Note ---
Date of Service November 07, 2023 Assessment & Plan (1) Superficial incisional infection of surgical site: (2) DM type 2 (diabetes mellitus, type 2): (3) Hyperlipidemia: (4) GERD (gastroesophageal reflux disease): (5) Hx of deep venous thrombosis: Plan (1) Superficial incisional infection of surgical site: (2) DM type 2 (diabetes mellitus, type 2): (3) Hyperlipidemia: (4) GERD (gastroesophageal reflux disease): (5) Hx of deep venous thrombosis: Plan per admitting provider notes with addendum: Ms. Rios is a 53 year old female that presents to the ED today with complaints of incisional redness and tenderness. She underwent a left flank abdominal wall mass removal under the care of Dr. Garcia on Wednesday 10/31 which was reportedly uneventful. Additional past medical history includes H/O DVT (On Coumadin) diabetes mellitus, history of ITP, hypothyroidism, and GERD. Abdominal ultrasound revealed subcutaneous hematoma versus abscess. Chest x-ray negative for acute cardiopulmonary disease. Post operatively, she was ordered Lovenox SQ in addition to Coumadin, last dose was ordered for tonight. No leukocytosis, lactate normal, procalcitonin negative, troponin negative and otherwise no lab abnormalities. Patient is normotensive and afebrile no tachycardia and on room air. Does not meet sepsis criteria. On examination AAOx3 and in no apparent distress. (+) erythema left anterior abdomen approx 3 inch horizontal incision with erythematous edges and bloody output; covered with gauze and abd. Does not appear toxic. ED spoke with on-call general surgery, Dr. Sierra, who will see patient and was able to irrigate and pack her wound; will follow with wound orders. Patient was started empirically on IV Zosyn, will add Dapto for MRSA coverage and will order a diet and adjust abx baesd on cultures; will hold Coumadin and Lovenox for now. Superficial incisional infection of surgical site: Acute +incisional redness and tenderness, POD # 3 s/p removal of L flank abd wall mass removal under care of Dr. Garcia Abdominal ultrasound revealed subcutaneous hematoma versus abscess No leukocytosis, lactate normal, procalcitonin negative, troponin negative and otherwise no lab abnormalities Started Empirically on IV Zosyn; adjust based on wound culture results Add IV Dapto and adjust pending MRSA screen MRSA screen ordered--negative blood and wound cultures ordered -negative Diabetic and heart healthy diet Hold Coumadin for now; check PT/INR and restart in AM pending results Was prescribed Lovenox post op on 10/31; last dose tonight; hold all anticoagulation General surgery consulted and irrigated and packed her wound at bedside; will follow with wound orders patient reports developing areas of rash on the lower extremities with Zosyn transition from Zosyn to Clindamycin 450 mg p.o. 3 times daily x 4 more days Cleared by general surgery for discharge, follow-up with Dr. Garcia in 1 week Wound care service consulted, needs to follow-up with wound care center in 1 week She remains stable without any acute symptoms-no fever and or chills, no abdominal pain nausea or vomiting bowel has been moving She was seen by the surgeon today and was advised that she could go home Discussed with the residential case manager and arranged for appropriate dressing She will be discharged home this afternoon with oral antibiotic to finish the course She will follow-up as an outpatient with the surgery History of DVT, antiphospholipid antibody syndrome Chronic Left leg Advised by staff research associate, Dr. Ralph Barron to resume Coumadin with Lovenox bridge after excision of lipoma Discussed with [facility] pharmacist Nita Navarro Patient to resume Lovenox postop instructions starting today as follows: November 06 Lovenox injection 100 mg at 8 PM Coumadin 20 mg at bedtime November 07 Lovenox injection 100 milligram at 8 AM and 8PM Coumadin 15 mg at bedtime November 08 Lovenox 100 mg at 8 AM and 8 PM Restart regular dose of Coumadin 10 mg daily Follow-up with Coumadin clinic on November 08 DM type II: Chronic Diet controlled Diabetic and heart healthy diet HLD: Chronic Takes simvastatin; hold while on Daptomycin Hypothyroidism: Chronic Takes levothyroxine; continue GERD: Chronic Takes pantoprazole; continue Disposition: Charge to home Follow-up with PCP in [address] Choi in 1 week Coumadin clinic on November 08 Discussed with the patient in detail in presence of the residential case manager She will be discharged home this afternoon Appropriate outpatient follow-ups have been met Admission and Anticipated Discharge Date Admission Date: November 03, 2023 Subjective 11/07/2023 The patient was seen and examined in medical floor She has been feeling much better and denies any significant symptoms No abdominal pain, nausea no vomiting and bowel has been moving Denies any fever and or chills Review of Systems Review of Systems: All systems reviewed and are unremarkable except as noted below Physical Exam Physical Exam: Sitting at the edge of the bed without any apparent distress Constitutional: well developed, well nourished and + obese; not ill appearing Eyes: PERRL, conjunctivae normal, anicteric sclerae ENMT: external ear and nose normal, oropharynx normal Neck: trachea midline, no thyromegaly Respiratory: no respiratory distress Auscultation: lungs clear to auscultation bilaterally Cardiovascular: Rate/Rhythm: regular rate and regular rhythm; not tachycardic Heart Sounds: normal S1 and normal S2; no murmur Extremities: no edema Gastrointestinal (Abdomen): Inspection/Auscultation: normal bowel sounds; abdomen not distended Percussion/Palpation: + abdomen tender and abdomen soft Musculoskeletal: No acute arthritis involving any of the joint Neurologic: normal touch/pain/proprioception and moves all extremities; no focal motor deficits Lymphatic: no cervical or axillary lymphadenopathy Results & Data Results & Data Vital Signs (Past 12 Hours) Vital Signs Temp Pulse Resp BP Pulse Ox O2 Del Method 11/07/23 08:38 37.4 C 80 16 106/57 L 98 Room Air Laboratory Results Short CBC 11/07/23 Range/Units 06:45 WBC 4.47 L (4.8-10.8) K/ul Hgb 11.7 L (12.0-16.0) g/dl Hct 35.1 L (37.0-47.0) % Plt Count 72 L (130-400) K/uL BMP 11/07/23 11/07/23 06:45 08:27 Sodium 136 Potassium TNP 4.2 Chloride 104 Carbon Dioxide 25 BUN 11 Creatinine 0.84 Glucose 99 Calcium 9.1 Medications Administered Current Inpatient Medications Acetaminophen (Acetaminophen 325 Mg Tab) 650 mg PO Q4H PRN PRN Reason: pain/fever Stop: 12/03/23 15:05 Last Admin: 11/07/23 07:42 Dose: 650 mg Al Hydrox/Mg Hydrox/Simethicone (Aluminum/Magnesium Susp 30 Ml Udc) 30 ml PO Q6H PRN PRN Reason: Dyspepsia Stop: 12/03/23 15:05 Clindamycin HCl (Clindamycin Hcl 150 Mg Cap) 450 mg PO TID MATTHIAS Stop: 11/13/23 10:59 Last Admin: 11/07/23 15:05 Dose: 450 mg Enoxaparin Sodium (Enoxaparin 100 Mg/1ml Syr) 100 mg SQ Q12H [facility] Stop: 11/09/23 07:59 Last Admin: 11/07/23 08:12 Dose: 100 mg Lactobacillus Acidophilus (Advanced Probiotic 1250 Mg Capsule) 2 cap PO DAILY [facility] Stop: 12/06/23 08:59 Last Admin: 11/07/23 08:12 Dose: 2 cap Levothyroxine Sodium (Levothyroxine Sodium 50 Mcg Tablet) 50 mcg PO DAILYBB [facility] Stop: 12/04/23 06:29 Last Admin: 11/07/23 05:20 Dose: 50 mcg Magnesium Chloride (Magnesium Chloride W/Calcium 64mg Delayed Rel Tab) 64 mg PO QAM [facility] Stop: 12/06/23 17:44 Last Admin: 11/07/23 08:12 Dose: 64 mg Magnesium Hydroxide (Magnesium Hydroxide Susp 30 Ml Udc) 30 ml PO Q6H PRN PRN Reason: Constipation Stop: 12/03/23 15:05 Ondansetron HCl (Ondansetron Inj 2 Mg/Ml 2 Ml Vial) 4 mg IV Q6H PRN PRN Reason: Nausea Stop: 12/03/23 15:05 Pantoprazole Sodium (Pantoprazole 40 Mg Tab) 40 mg PO QAM [facility] Stop: 12/04/23 08:59 Last Admin: 11/07/23 08:12 Dose: 40 mg Polyethylene Glycol (Polyethylene (Miralax) 17 Gm Pack) 17 gm PO DAILY PRN PRN Reason: Constipation Stop: 12/03/23 15:05 Last Admin: 11/05/23 07:50 Dose: 17 gm Tramadol HCl (Tramadol Hcl 50 Mg Tablet) 50 mg PO Q6H PRN PRN Reason: Pain Stop: 12/03/23 17:59 Warfarin Sodium (Warfarin Sod 7.5 Mg Tab) 15 mg PO ONE ONE Stop: 11/07/23 21:01
[2023-11-07] MEDS ORDERED: WARFARIN SOD 7.5 MG TAB PO ONE (21:00)
--- NOTE | 2023-11-08 08:07 | Discharge Summary ---
Date of Service November 07, 2023 Admission HPI Per Admitting Provider Ms. Rios is a 53 year old female that presents to the ED today with complaints of incisional redness and tenderness. She underwent a left flank abdominal wall mass removal under the care of Dr. Garcia on Wednesday 10/31 which was reportedly uneventful. Additional past medical history includes H/O DVT (On Coumadin) diabetes mellitus, history of ITP, hypothyroidism, and GERD. Abdominal ultrasound revealed subcutaneous hematoma versus abscess. Chest x-ray negative for acute cardiopulmonary disease. Post operatively, she was ordered Lovenox SQ in addition to Coumadin, last dose was ordered for tonight. No leukocytosis, lactate normal, procalcitonin negative, troponin negative and otherwise no lab abnormalities. Patient is normotensive and afebrile no tachycardia and on room air. Does not meet sepsis criteria. ON examination AAOx3 and in no apparent distress. (+) erythema left anterior abdomen approx 3 inch horizontal incision with erythematous edges and bloody output; covered with gauze and abd. Does not appear toxic. ED spoke with on-call general surgery, Dr. Sierra, who will see patient and was able to irrigate and pack her wound; will follow with wound orders. Patient was started empirically on IV Zosyn, will add Dapto for MRSA coverage and will order a diet and adjust abx baesd on cultures; will hold Coumadin and Lovenox for now. Patient will be admitted for further evaluation and management. Please see H&P for further details. Principal Diagnosis Hematoma, possible infection, surgical wound Discharge Exam Sitting at the edge of the bed without any apparent distress Constitutional well developed, well nourished and + obese; not ill appearing Eyes PERRL, conjunctivae normal, anicteric sclerae ENMT external ear and nose normal, oropharynx normal Neck trachea midline, no thyromegaly Respiratory no respiratory distress Auscultation: lungs clear to auscultation bilaterally Cardiovascular Rate/Rhythm: regular rate and regular rhythm; not tachycardic Heart Sounds: normal S1 and normal S2; no murmur Extremities: no edema Gastrointestinal (Abdomen) Inspection/Auscultation: normal bowel sounds; abdomen not distended Percussion/Palpation: + abdomen tender and abdomen soft Neurologic normal touch/pain/proprioception and moves all extremities; no focal motor deficits Lymphatic no cervical or axillary lymphadenopathy Discharge Data Allergies Allergy/AdvReac Type Severity Reaction Status Date / Time codeine Allergy Intermediate Hives Verified 10/31/23 06:08 morphine Allergy Mild itching Verified 10/31/23 06:08 piperacillin [From Zosyn] Allergy Rash Verified 11/06/23 09:27 tazobactam [From Zosyn] Allergy Rash Verified 11/06/23 09:27 Consultations 11/03/23 12:33 Consult General Surgery Stat 11/03/23 14:54 ED Decision to Admit Stat 11/05/23 11:43 Consult Behavioral Health Liaison Routine Ordered Studies 11/03/23 12:07 US abdomen limited Stat Hospital Course (1) Superficial incisional infection of surgical site: (2) DM type 2 (diabetes mellitus, type 2): (3) Hyperlipidemia: (4) GERD (gastroesophageal reflux disease): (5) Hx of deep venous thrombosis: Plan (1) Superficial incisional infection of surgical site: (2) DM type 2 (diabetes mellitus, type 2): (3) Hyperlipidemia: (4) GERD (gastroesophageal reflux disease): (5) Hx of deep venous thrombosis: Plan per admitting provider notes with addendum: Ms. Rios is a 53 year old female that presents to the ED today with complaints of incisional redness and tenderness. She underwent a left flank abdominal wall mass removal under the care of Dr. Garcia on Wednesday 10/31 which was reportedly uneventful. Additional past medical history includes H/O DVT (On Coumadin) diabetes mellitus, history of ITP, hypothyroidism, and GERD. Abdominal ultrasound revealed subcutaneous hematoma versus abscess. Chest x-ray negative for acute cardiopulmonary disease. Post operatively, she was ordered Lovenox SQ in addition to Coumadin, last dose was ordered for tonight. No leukocytosis, lactate normal, procalcitonin negative, troponin negative and otherwise no lab abnormalities. Patient is normotensive and afebrile no tachycardia and on room air. Does not meet sepsis criteria. On examination AAOx3 and in no apparent distress. (+) erythema left anterior abdomen approx 3 inch horizontal incision with erythematous edges and bloody output; covered with gauze and abd. Does not appear toxic. ED spoke with on-call general surgery, Dr. Sierra, who will see patient and was able to irrigate and pack her wound; will follow with wound orders. Patient was started empirically on IV Zosyn, will add Dapto for MRSA coverage and will order a diet and adjust abx baesd on cultures; will hold Coumadin and Lovenox for now. Superficial incisional infection of surgical site: Acute +incisional redness and tenderness, POD # 3 s/p removal of L flank abd wall mass removal under care of Dr. Garcia Abdominal ultrasound revealed subcutaneous hematoma versus abscess No leukocytosis, lactate normal, procalcitonin negative, troponin negative and otherwise no lab abnormalities Started Empirically on IV Zosyn; adjust based on wound culture results Add IV Dapto and adjust pending MRSA screen MRSA screen ordered--negative blood and wound cultures ordered -negative Diabetic and heart healthy diet Hold Coumadin for now; check PT/INR and restart in AM pending results Was prescribed Lovenox post op on 10/31; last dose tonight; hold all anticoagulation General surgery consulted and irrigated and packed her wound at bedside; will follow with wound orders patient reports developing areas of rash on the lower extremities with Zosyn transition from Zosyn to Clindamycin 450 mg p.o. 3 times daily x 4 more days Cleared by general surgery for discharge, follow-up with Dr. Garcia in 1 week Wound care service consulted, needs to follow-up with wound care center in 1 week She remains stable without any acute symptoms-no fever and or chills, no abdominal pain nausea or vomiting bowel has been moving She was seen by the surgeon today and was advised that she could go home Discussed with the pillowcase folder and arranged for appropriate dressing She will be discharged home this afternoon with oral antibiotic to finish the course She will follow-up as an outpatient with the surgery History of DVT, antiphospholipid antibody syndrome Chronic Left leg Advised by standard machine stitcher, Dr. Ralph Barron to resume Coumadin with Lovenox bridge after excision of lipoma Discussed with [facility] pharmacist Nita Navarro Patient to resume Lovenox postop instructions starting today as follows: November 06 Lovenox injection 100 mg at 8 PM Coumadin 20 mg at bedtime November 07 Lovenox injection 100 milligram at 8 AM and 8PM Coumadin 15 mg at bedtime November 08 Lovenox 100 mg at 8 AM and 8 PM Restart regular dose of Coumadin 10 mg daily Follow-up with Coumadin clinic on November 08 DM type II: Chronic Diet controlled Diabetic and heart healthy diet HLD: Chronic Takes simvastatin; hold while on Daptomycin Hypothyroidism: Chronic Takes levothyroxine; continue GERD: Chronic Takes pantoprazole; continue Disposition: Charge to home Follow-up with PCP in [address] Choi in 1 week Coumadin clinic on November 08 Discussed with the patient in detail in presence of the pillowcase folder She will be discharged home this afternoon Appropriate outpatient follow-ups have been met Total Time Total Time Spent Total Time Spent (In Minutes): 35 minutes Discharge Plan Discharge Items Patient Disposition: Home - Self-Care Reason For Visit: POST OP INFECTION Discharge Diagnosis: Hematoma, possible infection, surgical wound Condition on Discharge: Fair Activity: Resume your previous activity Lifting: Wait until after follow-up appointment Exercise/Sports: Wait until after follow-up appointment Driving/Machine Use: Wait until after follow-up appointment Non-emergency contact: Primary Care Provider Call non-emergency contact if: you have any medication questions, your symptoms worsen, your pain is not controlled, your pain is worsening, your pain is unusual for you, your pain is concerning for you, you have a fever, your wound has increased redness, your wound has increased drainage and your wound pain has increased Follow-up/Referrals: [facility] [Other] - 11/12/23 9:30 am Jewels Greenfield MD [Primary Care Provider] - 11/12/23 12:00 pm Diet: Heart Healthy Addtl Attending Provider Instructions: PLEASE REFER TO YOUR NEW MEDICATION LIST AND FOLLOW INSTRUCTIONS CAREFULLY. YOUR NEW MEDICATIONS INCLUDE: Clindamycin-antibiotic for wound infection Please take a probiotic daily for at least 2 weeks. [employer] brand recommended. Eat yogurt daily also for at least 2 weeks to prevent diarrhea. Resume instructions by Coumadin clinic regarding Lovenox and Coumadin after surgery as follows: November 06 Lovenox injection 100 mg at 8 PM Coumadin 20 mg at bedtime November 07 Lovenox injection 100 milligram at 8 AM and 8PM Coumadin 15 mg at bedtime November 08 Lovenox 100 mg at 8 AM and 8 PM Restart regular dose of Coumadin 10 mg daily PLEASE CALL YOUR PRIMARY CARE PHYSICIAN OR RETURN TO THE ER IF WITH WORSENING OF SYMPTOMS, INCLUDING Fevers or chills, bleeding or discharge from the wound, weakness, nausea vomiting, etc. FOLLOW UP WITH PRIMARY CARE PHYSICIAN IN 1 WEEK. FOLLOW-UP WITH GENERAL SURGEON IN 1 WEEK. FOLLOW-UP WITH [facility] ON SundayNOVEMBER 08 AT 1:00PM. FOLLOW-UP WITH [facility] IN 1 WEEK. Telephone #[phone]. Pending Studies at Discharge: No Stand-Alone Forms: [facility], Smoking Cessation Medications and DC Order Prescriptions: New clindamycin HCl 150 mg Capsule 450 mg PO TID 5 Days Qty: 45 0RF Continued multivitamin Tablet 1 tab PO Q OTHER DAY acetaminophen [Tylenol Extra Strength] 500 mg Tablet 500 - 1,000 mg PO Q6H PRN (Reason: q6) levothyroxine 50 mcg tablet 50 mcg PO QAM Rx Instructions: TAKE 30 MIN BEFORE BREAKFAST pantoprazole 40 mg tablet,delayed release (DR/EC) 40 mg PO QAM simvastatin 20 mg tablet 20 mg PO HS warfarin 5 mg tablet 10 mg PO HS Lactobacillus acidophilus Capsule 0 mg PO DAILY loratadine 10 mg Tablet 10 mg PO QAM PRN (Reason: Allergy Symptoms) magnesium chloride 64 mg magnesium Tablet 64 mg PO QAM tramadol 50 mg tablet 50 mg PO Q6H Qty: 14 0RF Changed enoxaparin [Lovenox] 100 mg/mL Syringe 100 mg subcut UD Qty: 10 0RF Rx Instructions: PLEASE FOLLOW COUMADIN CLINIC INSTRUCTIONS AFTER SURGERY Discharge Orders: Discharge Order (Routine); Ordered 11/07/23 Ordered By: Rene Ca Admission Data Admit Date/Time: 11/03/23 15:06 Attending Provider: Rene Ca Admit Provider: Hayden Ngo Primary Care Provider: Jewels Greenfield Other Providers: Yousuf Sierra; Hayden Ngo; [facility] Other Interventions: Discharge Summary Assessment (RN) Last Done: 11/07/23 16:11
== END 2023-11-07 16:40 | disposition home health service (06) | DRG 920 ==
LOC: ED 11:17 → 3N 15:06 → SUATTDRO 15:06 → 3N 18:00

== ENCOUNTER 2024-03-31 08:01 | Observation (INO) ==
--- OUTSIDE RECORDS SUMMARY | 2024-03-31 08:12 | External Medical Summary | Summary of Care ---
Author Name Unknown Organization [facility] Address [address] [place] [address] Phone [phone] Care Team Providers Care Top Lift Scourer Name Role Phone Jewels Greenfield MD Primary Care Provide r Reason for Visit * Reason Onset Date Comments Advice 12/18/2023 Barron Encounter Details Date Type Department Care Team ([facility] st Contact Info) Description 12/18/2023 Telephone Hematology/Oncology [facility] [address] [facility] [place] [address] Services, Scheduling [address] [place] [address] Advice ([place]) Allergies Active Allergy Reactions Criticality Noted Date Comments Codeine Hives,Itching 06/07/2018 Morphine And Related 01/28/2008 Rituximab 02/08/2024 documented as of this encounter (statuses as of 03/18/2024) Medications Medication Sig Dispensed Refills Start Date End Date Status Acetaminophen 500 MG Oral Tablet (Tylenol) Take 1 Tablet by mouth every 6 hours as needed for Pain. Take 1 -2 tab q 6 hr prn 0 Active Loratadine 10 MG Oral Tablet Take 1 Tablet by mouth in the morning. 0 Active OneTouch Verio In Vitro Strip (Glucose Blood) USE STRIP TO CHECK GLUCOSE ONCE DAILY 100 Strip 3 2 Active OneTouch Delica Plus [id number] USE TO CHECK GLUCOSE ONCE DAILY 100 Each 3 2 Active OneTouch Verio Flex System w/Device KitIndications:Hy poglycemia Use as directed . Test BS once daily and as needed for hypoglycemia DX: E88.8/ Z83.3 1 Kit 0 2 Active Artificial Tears 83-15 % Ophthalmic OintmentIndicatio ns:Prado's palsy Instill into the right eye every night at bedtime. 3.5 g 2 2 Active Magnesium 250 MG Oral Tablet Take 1 Tablet by mouth in the morning. 0 Active Pantoprazole Sodium 40 MG Oral Tablet Delayed Release (Protonix) TAKE 1 TABLET BY MOUTH ONCE DAILY 30 MINUTES BEFORE THE FIRST MEAL OF THE DAY. DO NOT, CRUSH OR CHEW TABLET 90 Tablet 1 3 Active Simvastatin 20 MG Oral Tablet (Zocor)Indication s:Dyslipidemia, goal LDL below 130 TAKE 1 TABLET BY MOUTH ONCE DAILY AT NIGHT AT BEDTIME 90 Tablet 3 3 Active Polyethylene Glycol 3350 17 GM/SCOOP Oral Powder (Miralax) Mix 17g (1 capful to line) in 8-oz of water or juice and take by mouth daily as needed (Constipation). 119 g 0 4 Active Levoxyl 50 MCG Oral Tablet Take 1 Tablet by mouth in the morning. on an empty stomach.. 90 Tablet 1 4 Active Multiple Vitamins-Minerals (ONE-A-DAY WOMENS 50+ ADVANTAGE) Tablet Take 1 Tablet by mouth in the morning. 0 024 Discontinued levETIRAcetam 500 MG Oral Tablet (Keppra) Take 1 Tablet by mouth twice daily (morning, before bedtime). 60 Tablet 0 4 024 Discontinued(Re fill) Sennosides-Docusa te Sodium 8.6-50 MG Oral Tablet (Senokot-S) Take 1 Tablet by mouth daily as needed for Constipation for up to 15 days. 15 Tablet 0 4 024 Discontinued dexAMETHasone 4 MG Oral Tablet (Decadron) Take 10 Tablets (40 mg total) by mouth 2 times a day with morning and evening meals for 4 days. Do not start before November 22, 2023. 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 10 mL 1 4 024 Discontinued dexAMETHasone 4 MG Oral Tablet (Decadron)Indicat ions:Thrombocytop enia (HCC) Take 40mg (10 tabs) once a day x4 days 40 Tablet 0 4 024 Discontinued documented as of this encounter (statuses as of 03/18/2024) Active Problems Problem Noted Date Diagnosed Date Facial droop 02/08/2024 Acute ITP 12/18/2023 SDH (subdural hematoma) 11/16/2023 Thrombocytopathia 11/16/2023 History of DVT (deep vein thrombosis) 11/16/2023 Chronic anticoagulation 11/16/2023 H/O dysplastic nevus 11/15/2022 Overview: Moderately atypical nevus (R upper arm 11/27) Chronic deep vein thrombosis (DVT) of left popli teal vein 03/27/2022 Retracted tympanic membrane, left 10/03/2019 Conductive hearing loss of l eft ear with restricted hearing of right ear 10/03/2019 Acquired hypothyroidism 02/14/2019 Chronic idiopathic thrombocytopenia 06/07/2018 Antiphospholipid antibody syndrome 06/07/2018 Idiopathic thrombocytopenic purpura (ITP) 2017 Dyslipidemia, goal LDL below 130 10/02/2016 Slow transit constipation 03/24/2013 Tobacco use disorder 10/23/2007 Class 1 obesity due to exces s calories without serious comorbidity in adult 10/23/2007 Overview: Per Obesity Taxonomy Metabolic syndrome 10/23/2007 Family history of diabetes mellitus 10/23/2007 Sensorineural hearing loss, bilateral Dysfunction of eustachian tube Gastroesophageal reflux disease without esophagi tis documented as of this encounter (statuses as of 03/18/2024) Resolved Problems Problem Noted Date Diagnosed Date Resolved Date History of ITP 11/16/2023 02/08/2024 Hepatic cirrhosis 07/14/2022 07/14/2022 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 BMI 34.0-34.9,adult 12/29/2010 02/23/20 18 OBESITY, BMI 30-34 (SEE ACTUAL BMI) 01/27/2010 12/29/2010 Overview: Per Obesity Taxonomy Dyslipidemia, goal to be determined 11/07/2007 12/29/2010 Esophageal reflux 10/02/2016 Otitis media 10/02/2016 Chronic mastoiditis 10/02/20 16 Calculus of gallbladder 02/03 documented as of this encounter (statuses as of 03/18/2024) Immunizations Name Administration Dates Next Due Pneumococcal Conjugate Vacci ne, 20-valent ([id number]) 05/30/2022 Pneumococcal Polysaccharide PPV23 (Pneumovax) 09/24/2012,07/08/2009(Deferred: Patient Refused) TDAP (age 10 and older)(Boostrix) 01/17/2019,10/2009 TDAP (age 11 and older)(Adacel) 01/14/2009 documented as of this encounter Social History Tobacco Use Types Packs/Day Years Used Date Smoking Tobacco: Former Cigarettes 0.5 15 0 06/13/2003 - 06/13/2018 Smokeless Tobacco: Never Alcohol Use Standard [...] on file documented as of this encounter Functional Status Functional Status Response Date of Assess ment Are you deaf or do you have serious difficulty h earing? No 11/16/2023 Are you blind or do you have serious difficulty seeing, even when wearing glasses? No 11/16/2023 Do you have serious difficul ty walking or climbing stairs? (5 years old or older) No 11/16/2023 Do you have difficulty dress ing or bathing? (5 years old or older) No 11/16/2023 Because of a physical, menta l, or emotional condition, do you have difficulty doing errands alone such as visiting a doctor s office or shopping? (15 years old or older) No 11/16/19 24 Cognitive Status Response Date of Assessm ent Because of a physical, menta l, or emotional condition, do you have serious difficulty concentrating, remembering, or making decisions? (5 years old or older) No 11/16/2023 documented as of this encounter Miscellaneous Notes * Telephone Encounter - Mady Izaguirre RN - 12/19/2023 10:13 AM EST Spoke to patient- she states that her blurred vision has resolved, she is feeling better. She did not supervisor clam bed decadron yet. Advised her that it is important that she pick this up and start it as soonas possible. She will try to get it this morning. She notes diarrhea- advised her that this would not be related to ITP, she does note a viral infection. Advised her to follow up with PCP. Asked patient to have lab work checked Sunday morning- she states that she will. * Telephone Encounter - Zaynab Ferreira OSA - 12/19/2023 10:07 AM EST Reason for patient's call: Pt returning call from nurse Caller was transferred to Mady at the nurse line. * Telephone Encounter - Mady Izaguirre RN - 12/19/2023 10:02 AM EST Called to check on patient- left message for return call. * Telephone Encounter - Mady Izaguirre RN - 12/18/2023 3:27 PM EST Called patient. She states that she did take the decadron. Reviewed side effects of decadron, patient denies history of diabetes but has a family history of diabetes so states that she checks her glucose levels at least once a day anyhow. Notes headaches that she has experienced off and on since being in the hospital, also notes some blurred vision today. Placed patient on brief hold, reviewed with Dr Barron. Patient to monitor and to go to ER if symptoms get any worse. Patient verbalized understanding. * Telephone Encounter - Jenn Michelle hat band attacher - 12/18/2023 3:11 PM EST Patient Phone Numbers Patient requesting call back please to discuss possible side effects concerns about Decadron. Thank You, Jenn Michelle, [facility] Water Filterer Helper III [facility] * Telephone Encounter - Juni Zelaya RN - 12/18/2023 11:[address] Barron, please advise. Would you like patient to recheck CBCD after Decadron x4? Thanks * Telephone Encounter - Fela Carrera OSA - 12/18/2023 10:49 AM EST [place] pt. Pt is wondering when to get platelet count done? Please call pt back at [phone] Thank you! documented in this encounter Plan of Treatment Upcoming Encounters Date Type Department Care Team (Late st Contact Info) Description 03/19/2024 7:00 AM EDT Laboratory [facility] [address] [place] [address] [facility] [address] [place] [address] 03/26/2024 7:00 AM EDT Laboratory [facility] [address], [place] [address] [facility] [address] [place] [address] 04/02/2024 7:00 AM EDT Laboratory [facility] [address] [place] [address] [facility] [address] [place] [address] 04/03/2024 6:00 AM EDT Anticoagulation Pharmacy Call Center [phone] [facility] [place] [address] [facility], [facility] [address] [facility] [place] [address] 04/09/2024 7:00 AM EDT Laboratory [facility] [address] [place] [address] [facility] [address] [place] [address] 04/16/2024 7:00 AM EDT Laboratory [facility] [address] [place] [address] [facility] [address] [place] [address] 04/23/2024 7:00 AM EDT Laboratory [facility] [address] [place] [address] [facility] [address] [place] [address] 04/30/2024 7:00 AM EDT Laboratory [facility] [address] [place] [address] [facility] [address] [place] [address] 05/07/2024 7:00 AM EDT Laboratory [facility] [address] [place] [place] [address] [facility] [address] [place] [address] 05/14/2024 7:00 AM EDT Laboratory [facility] [address] [place] [place] [address] [facility] [address] [place] [address] 05/21/2024 7:00 AM EDT Laboratory [facility] [address] [place] [address] [facility] [address] [place] [address] 05/28/2024 7:00 AM EDT Laboratory [facility] [address] [place] [place] [address] [facility] [address] [place] [address] 06/04/2024 7:00 AM EDT Laboratory [facility] [address] [place] [address] [facility] [address] [place] [address] 06/11/2024 7:00 AM EDT [facility] [address] [place] [address] [facility] [address] [place] [address] 06/18/2024 7:00 AM EDT Laboratory [facility] [address] [place] [address] [facility] [address] [place] [address] 06/20/2024 10:45 AM EDT Office Visit Hematology/Oncology [facility] [address] [facility] [place] [phone] Ralph Barron MD [address] [facility] [place] [address] 06/25/2024 7:00 AM EDT Laboratory [facility] [address] [place] [address] [facility] [address] [facility] [place] [address] 08/12/2024 1:20 PM EDT Office Visit Family [address] [phone] Millie Lovell CRNP [address] [place] [address] [place] [address] 02/10/2025 1:40 PM EDT Office Visit Family Medicine [address] [phone] Jewels Greenfield MD [address] [place] [address] [place] [address] Scheduled Procedures Name Priority Associated Diagnoses Date/Ti me COLONOSCOPY FLEXIBLE PROXIMA L DIAGNOSTIC Recall History of colon polyps Special screening for malignant neoplasms, colon Health Maintenance Due Date Last Done Comments Hepatitis B (1 of 3 - 19+ 3-dose series) 1988 Fecal Occult Blood Test 2014 Sigmoidoscopy 2014 Zoster Vaccines (1 of 2) 2019 Colonoscopy 06/18/2020 06/18/2019, 06/18/2019 Colorectal Cancer Screening 06/18/2020 Depression Screening 09/09/2021 09/09/2020 Cologuard 05/07/2022 05/07/2019 COVID-19 Vaccine ( season) 2023 Influenza Vaccine (FLU shot) (Season Ended) 2024 Mammogram 07/13/2024 07/13/2023, 06/01/2022, 01/05/2021, Additional history exists TSH 12/25/2024 12/25/2023, 11/05, 10/04/2023, Additional history exists Diabetes Screening 03/11/2027 03/11/2024, 0 03/04/2024, 02/27/2024, Additional history exists Lipid Panel 10/04/2028 10/04/2023, 02/0 04/2023, 03/27/2022, Additional history exists DTaP,Tdap,and Td Vaccines (4 - Td or Tdap) 01/17/2029 01/17/2019, 01/14/2009, 01/14/2009 RETIRED - COLONOSCOPY-ANNUAL AGES 18-100 Discontinued 06/18/2019, 06/18/2019 Pneumococcal Vaccine: Pediatrics (0 to 5 Years) and At-Risk Patients (6 to 64 Years) Completed 05/30/2022, 09/24/2012 GARDASIL-HPV IMMUNIZATION SERIES Aged Out No longer eligible based on patient's age to complete this topic MENINGOCOCCAL (MENACTRA/MENVEO) Aged Out No longer eligible based on patient's age to complete this topic documented as of this encounter Medical Devices Implanted Type Area Dining Manager Device Identifier Shelf Expiration Date Model / Serial / Lot Henrik 18 Liq Embolic Agent - [id number] Implanted:Qty: 1 on 12/31/2023 by Hesham Martell MD, PhD at [facility] [employer] : NEURO CARE [id number] 01/24/2026 [id number] / / [id number] Description:Lot #[id number] documented as of this encounter Visit Diagnoses Diagnosis Thrombocytopenia (HCC)- Primary Thrombocytopenia, unspecified documented in this encounter Additional Health Concerns Infection Onset Date Last Indicated Resolved Time Respiratory Rule-Out 01/08/2024 01/08/2024 024 5:28 PM EST COVID-19 Rule-Out 01/08/2024 01/08/2024 01/08/2024 5:28 PM EST documented as of this encounter Advance Directives Latest Code Status on File Code Status Date Activated Date Inactivated Comments Full Code 12/25/2023 1:10 PM 01/16/2024 3:19 PM This order reflects the patients wishes and were consensually agreed upon. Question Answer Comments Discussion of Advance Directives occurred with: Patient Code Status History Code Status Date Activated Date Inactivated Comments Full Code 11/16/2023 12:39 AM 11/21/2023 7:18 PM This order reflects the patients wishes and were consensually agreed upon. Question Answer Comments Discussion of Advance Directives occurred with: Patient Care Teams Top Lift Scourer Relationship Specialty Start Date End Date Jewels Greenfield MD [address] [place] [address] [place] [phone] PCP - General Family Medicine 02/18/24 documented as of this encounter
--- OUTSIDE RECORDS SUMMARY | 2024-03-31 08:12 | External Medical Summary ---
Author Name Unknown Address Unknown Organization K01:[facility]ORY [facility] - [address] [place] [address] Laboratory Report Ordering Provider Test Date Status SHERLYN ROBLES 03/19/2024 10:24:00 Final Observation Date Value Abnormality Reference (Units ) Status BUN 03/19/2024 10:24:00 6 6-20 (mg/dL) Final Creatinine 03/19/2024 10:24:00 0.9 0.5-1.0 (mg/dL) Final Glomerular filtration rate/1.73 sq M.predicted [Volume Rate/Area] in Serum, Plasma or Blood by Creatinine-based formula (CKD-EPI) 03/19/2024 10:24:00 73 >=60 (mL/min) Final eGFR is calculated based on the CKD-EPI 2020 equation Sodium 03/19/2024 10:24:00 138 135-146 (m mol/L) Final Potassium 03/19/2024 10:24:00 3.4 Below low normal 3.5 -5.1 (mmol/L) Final Cl 03/19/2024 10:24:00 103 98-107 (mm ol/L) Final CO2 03/19/2024 10:24:00 23 22-32 (mmo l/L) Final Anion gap 03/19/2024 10:24:00 12 7-15 (mmol /L) Final Glucose 03/19/2024 10:24:00 93 70-120 (mg /dL) Final Albumin 03/19/2024 10:24:00 3.7 Below low normal 3.8 -5.0 (g/dL) Final AST (Aspartate aminotransferase) 03/19/2024 10:24:00 23 10-35 (U/L) Fin al Alk Phos 03/19/2024 10:24:00 109 35-130 (U/ L) Final Bilirubin, Total 03/19/2024 10:24:00 0.9 <=1 .2 (mg/dL) Final Calcium 03/19/2024 10:24:00 8.7 8.4-10.2 ( mg/dL) Final Protein 03/19/2024 10:24:00 6.0 6.0-8.3 (g /dL) Final ALT (Alanine aminotransferase) 03/19/2024 10:24:00 36 Above high normal 10-35 (U/L) Final Performing Location [facility]ORY [facility] - [address] [facility] [address]
--- OUTSIDE RECORDS SUMMARY | 2024-03-31 08:13 | External Medical Summary | Summary of Care ---
Author Name Unknown Organization [facility] Address [address] [place] [address] Phone [phone] Care Team Providers Care Grades 9 Thru 12 Visiting Teacher Name Role Phone Jewels Greenfield MD Primary Care Provide r Reason for Visit * Reason Comments eRx-Medication Refill Encounter Details Date Type Department Care Team (Late st Contact Info) Description 03/13/2024 Refill Hematology/Oncology [facility] [place] [address] [facility] [place] [phone] Kaelyn Boone MD [address] [facility] [place] [address] Antiphospholipid antibody syndrome (HCC) Allergies Active Allergy Reactions Criticality Noted Date Comments Codeine Hives,Itching 06/07/2018 Morphine And Related 01/28/2008 Rituximab 02/08/2024 documented as of this encounter (statuses as of 03/13/2024) Medications Medication Sig Dispensed Refills Start Date [...] Strip 3 2 Active OneTouch Delica Plus [id number] USE TO CHECK GLUCOSE ONCE DAILY 100 Each 3 2 Active OneTouch Verio Flex System w/Device KitIndications:Hypog lycemia Use as directed . 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 90 Tablet 1 4 Active levETIRAcetam 500 MG Oral Tablet (Keppra)Indications: Thrombocytopenia (HCC) Take 1 Tablet by mouth in the morning and 1 Tablet before bedtime. 60 Tablet 5 4 Active Sennosides-Docusate Sodium 8.6-50 MG Oral Tablet (Senokot-S) Take 1 Tablet by mouth daily as needed for Constipation. 15 Tablet 0 4 Active Sulfamethoxazole-Tri methoprim 800-160 MG Oral Tablet (Bactrim DS)Indications:Idiop athic thrombocytopenic purpura (ITP) (HCC) Take 1 Tablet by mouth once a day on Sunday, Sunday, and Sunday only. 15 Tablet 1 4 Active Additional Information Patient not taking.Reported on 02/08/2024 predniSONE 20 MG Oral Tablet (Deltasone)Indicatio ns:Acute ITP (HCC) Take 1 and 1/2 tablets by mouth x6 days, 1 tablet x1 week, then 1/2 tablet x1 week 14 Tablet 0 4 024 Active Enoxaparin Sodium 60 MG/0.6ML Injection Solution Prefilled Syringe (Lovenox)Indications :Antiphospholipid antibody syndrome (HCC) INJECT 50 MG TWICE DAILY 54 mL 1 4 Active Enoxaparin Sodium 100 MG/ML Injection Solution Prefilled Syringe (Lovenox)Indications :Antiphospholipid antibody syndrome (HCC) Inject 50 mg under the skin in the morning and 50 mg before bedtime. 100 mL 0 4 024 Discontinued documented as of this encounter (statuses as of 03/13/2024) Active Problems Problem Noted Date Diagnosed Date [...] as of this encounter (statuses as of 03/13/2024) Resolved Problems Problem Noted Date Diagnosed Date [...] as of this encounter (statuses as of 03/13/2024) Immunizations Name Administration Dates Next Due Pneumococcal Conjugate Vacci ne, 20-valent ([id number]) 05/30/2022 Pneumococcal Polysaccharide PPV23 (Pneumovax) 09/24/2012,07/08/2009(Deferred: Patient [...] you have serious difficulty h earing? No 12/25/2023 Are you blind or do you have serious difficulty seeing, even when wearing glasses? No 12/25/2023 Do you have serious difficul ty walking or climbing stairs? (5 years old or older) No 12/25/2023 Do you have difficulty dress ing or bathing? (5 years old or older) No 12/25/2023 Because of a physical, menta l, or emotional condition, do you have difficulty doing errands alone such as visiting a doctor s office or shopping? (15 years old or older) No 12/25/19 24 Cognitive Status Response Date of Assessm ent Because of a physical, menta l, or emotional condition, do you have serious difficulty concentrating, remembering, or making decisions? (5 years old or older) No 12/25/2023 documented as of this encounter Miscellaneous Notes * Telephone Encounter - Mady Izaguirre RN - 03/13/2024 4:24 PM EDT Managed by MTM/ coag * Telephone Encounter - Juni Zelaya, MAME - 03/13/2024 4:23 PM EDTPending Prescriptions: Disp Refills Enoxaparin Sodium 60 MG/0.6ML Injection So*60 mL 0 Sig: INJECT 50 MG TWICE DAILY * Telephone Encounter - Иван De La Cruz internet marketing specialist - 03/13/2024 4:23 PM EDT Pt calling to verify this request came through. Informed Pt it was received. Verbalized understanding. Thank you, Иван De La Cruz Pack Operator [facility] 03/13/2024,4:24 PM * Telephone Encounter - Juni Zelaya, MAME - 03/13/2024 4:21 PM EDT Pt seen 03/04/24. Per TRUDY pt to continue on twice daily Lovenox injections. documented in this encounter Plan of Treatment Upcoming Encounters Date Type Department Care Team (Late st Contact Info) Description 03/19/2024 7:00 AM EDT [facility] [address] [place] [address] [id number] [facility] [address] [place] [address] 03/26/2024 7:00 AM EDT [facility] [address] [place] [address] [address] [facility] [address] [place] [address] [id number] 04/02/2024 7:00 AM EDT [facility] [address] [place] [address] [address] [facility] [address] [place] [address] [address] 04/03/2024 6:00 AM EDT Anticoagulation Pharmacy Call Center [facility] [phone] [facility] [place] [address] [facility], [facility] [address] [facility] [place] [address] 04/09/2024 7:00 AM EDT [facility] [address] [place] [address] [address] [facility] [address], [place] [address] 04/16/2024 7:00 AM EDT [facility] [address] [place] [address] [address] [facility] [address], [place] [address] 04/23/2024 7:00 AM EDT [facility] [address] [place] [address] [address] [facility] [address] [facility] [place] [address] 04/30/2024 7:00 AM EDT [facility] [address] [facility] [address] [facility] [address] [facility] [place] [address] 05/07/2024 7:00 AM EDT [facility] [address] [facility] [place] [address] [facility] [address] [facility] [place] [address] 05/14/2024 7:00 AM EDT [facility] [address] [facility] [address] [facility] [address] [facility] [place] [address] 05/21/2024 7:00 AM EDT [facility] [address] [facility] [address] [facility] [address] [facility] [address] 05/28/2024 7:00 AM EDT [facility] [address] [facility] [address] [facility] [address] [facility] [place] [address] 06/04/2024 7:00 AM EDT [facility] [address] [facility] [place] [address] [facility] [address] [facility] [place] [address] 06/11/2024 7:00 AM EDT [facility] [address] [facility] [address] [facility] [address] [facility] [place] [address] 06/18/2024 7:00 AM EDT [facility] [address] [facility] [place] [address] [facility] [address] [place] [address] 06/20/2024 10:45 AM EDT Office Visit Hematology/Oncology [facility] [place] [address] [facility] [place] [phone] Ralph Barron MD [address] [facility] [place] [address] 06/25/2024 7:00 AM EDT [facility] [address] [place] [address] [facility] [address] [facility] [place] [address] 08/12/2024 1:20 PM EDT Office Visit Family Medicine [address] [phone] Millie Lovell CRNP [address] [place] [address] [place] [address] 02/10/2025 1:40 PM EDT Office Visit [address] [phone] Jewels Greenfield MD [address] [place] [address] [place] [address] Scheduled Procedures Name Priority Associated Diagnoses Date/Ti [...] shot) (Season Ended) 2024 Mammogram 07/13/2024 07/13/2023, 04/06, 01/05/2021, Additional history exists TSH 12/25/2024 12/25/2023, 11/05, 10/04/2023, Additional history exists Diabetes Screening 03/11/2027 03/11/2024, 0 03/04/2024, 02/27/2024, Additional history exists Lipid Panel 10/04/2028 10/04/2023, 04/2023, 03/27/2022, Additional history exists DTaP,Tdap,and Td [...] this encounter Medical Devices Implanted Type [employer] Assistant [employer] Device Identifier Shelf Expiration Date Model / Serial / Lot Henrik 18 Liq Embolic Agent - [id number] Implanted:Qty: 1 on 12/31/2023 by Hesham Martell MD, PhD at [facility] [employer] : NEURO CARE [id number] 01/24/2026 [id number] / / [id number] Description:Lot #[id number] documented as of this encounter Visit Diagnoses Diagnosis Antiphospholipid antibody syndrome (HCC) Primary hypercoagulable state documented in this encounter Advance Directives Latest Code Status [...] Advance Directives occurred with: Patient Care Teams Grades 9 Thru 12 Visiting Teacher Relationship Specialty Start Date End Date Jewels Greenfield MD [address] [place] [address] [place] [address] PCP - General Family Medicine 02/18/24 documented as of this encounter
--- OUTSIDE RECORDS SUMMARY | 2024-03-31 08:13 | External Medical Summary | Summary of Care ---
Author Name Unknown Organization [facility] Address [address] [place] [address] Phone [phone] Care Team Providers Care Technology Resource Teacher Name Role Phone Jewels Greenfield MD Primary Care Provide r Reason for Visit * Reason Comments Follow Up 4 week follow up Encounter Details Date Type Department Care Team (Late st Contact Info) Description 03/04/2024 1:15 PM EDT Office Visit [facility] [place] [address] [facility] [place] [phone] Ralph Barron MD [address] [facility] [place] [address] Acute ITP (HCC)*; Antiphospholipid antibody syndrome (HCC); History of DVT (deep vein thrombosis) Allergies Active Allergy Reactions Criticality Noted Date Comments Codeine Hives,Itching 06/07/2018 Morphine And Related 01/28/2008 Rituximab 02/08/2024 documented as of this encounter (statuses as of 03/04/2024) Medications Medication Sig Dispensed Refills Start Date [...] Strip 3 05/15/2022 Active OneTouch Delica Plus [id number] USE TO CHECK GLUCOSE ONCE DAILY 100 Each 3 05/15/2022 Active streamitio Flex System w/Device KitIndications:Hypogly cemia Use as directed . Test BS once daily and as needed for hypoglycemia DX: E88.8/ Z83.3 1 Kit 0 05/16/2022 Active Artificial Tears 83-15 % Ophthalmic OintmentIndications:Be ll's palsy Instill into the right eye every [...] CHEW TABLET 90 Tablet 1 03/29/2023 Active Simvastatin 20 MG Oral Tablet (Zocor)Indications:Dys lipidemia, goal LDL below 130 TAKE 1 TABLET BY MOUTH ONCE DAILY AT NIGHT AT BEDTIME 90 Tablet 3 10/02/2023 Active Polyethylene Glycol 3350 17 GM/SCOOP Oral Powder (Miralax) Mix 17g (1 capful to line) in 8-oz of water or juice and take by mouth daily as needed (Constipation). 119 g 0 11/20/2023 Active Levoxyl 50 MCG Oral Tablet Take 1 Tablet by mouth in the morning. on an empty stomach.. 90 Tablet 1 11/23/2023 Active levETIRAcetam 500 MG Oral Tablet (Keppra)Indications:Th rombocytopenia (HCC) Take 1 Tablet by mouth in the morning and 1 Tablet before bedtime. 60 Tablet 5 12/20/2023 Active Sennosides-Docusate Sodium 8.6-50 MG Oral Tablet (Senokot-S) Take 1 Tablet by mouth daily as needed for Constipation. 15 Tablet 0 01/15/2024 Active Sulfamethoxazole-Trime thoprim 800-160 MG Oral Tablet (Bactrim DS)Indications:Idiopat hic thrombocytopenic purpura (ITP) (HCC) Take 1 Tablet by mouth once a day on Sunday, Sunday, and Sunday only. 15 Tablet 1 02/08/2024 Active Additional Information Patient not taking.Reported on 02/08/2024 Enoxaparin Sodium 100 MG/ML Injection Solution Prefilled Syringe (Lovenox)Indications:A ntiphospholipid antibody syndrome (HCC) Inject 50 mg under the skin in the morning and 50 mg before bedtime. 100 mL 0 02/18/2024 Active predniSONE 20 MG Oral Tablet (Deltasone)Indications :Acute ITP (HCC) Take 1 and 1/2 tablets by mouth x6 days, 1 tablet x1 week, then 1/2 tablet x1 week 14 Tablet 0 02/26/2024 Active documented as of this encounter (statuses as of 03/04/2024) Active Problems Problem Noted Date Diagnosed Date [...] as of this encounter (statuses as of 03/04/2024) Resolved Problems Problem Noted Date Diagnosed Date [...] as of this encounter (statuses as of 03/04/2024) Immunizations Name Administration Dates Next Due Pneumococcal Conjugate Vacci ne, 20-valent ([id number]) 05/30/2022 Pneumococcal Polysaccharide PPV23 (Pneumovax) 09/24/2012,07/08/2009(Deferred: Patient Refused) TDAP (age 10 and older)(Boostrix) 01/17/2019,10/2009 TDAP (age 11 and older)(Adacel) 01/14/2009 documented as of this encounter Social History Tobacco Use Types Packs/Day Years Used Date Smoking Tobacco: Former Cigarettes 0.5 15 0 06/13/2003 - 06/13/2018 Smokeless Tobacco: Never Tobacco Cessation:Counseling Given: Not Answered Alcohol Use Standard Drinks/Week Comments Yes 0 [...] on file documented as of this encounter Last Filed Vital Signs Vital Sign Reading Time Taken Comments Blood Pressure 103/65 03/04/2024 1:00 PM EDT Pulse 81 03/04/2024 1:00 PM EDT Temperature 36.7 C (98 F) 03/04/2024 1:00 PM EDT Respiratory Rate - - Oxygen Saturation 97% 03/04/2024 1:00 PM EDT Inhaled Oxygen Concentration - - Weight 78.4 kg (172 lb 12.8 oz) 03/04/2024 1:00 PM EDT Height - - Body Mass Index 27.89 02/01/2024 1:07 PM EDT documented in this encounter Functional Status Functional Status Response [...] (15 years old or older) No 12/25/19 Cognitive Status Response Date of Assessm ent Because of a physical, menta l, or emotional condition, do you have serious difficulty concentrating, remembering, or making decisions? (5 years old or older) No 12/25/2023 documented as of this encounter Progress Notes * Ralph Barron MD - 03/04/2024 1:15 PM EDT Name: Jalyn Rios Date: 01/23/2024 CHIEF COMPLAINT: Jalyn Rios is a 54 year old female patient here today for follow-up visit. HISTORY OF PRESENT ILLNESS: History was obtained from patient's chart and confirmed with patient. Note was copied/pasted from the previous note and updated as needed. HEMATOLOGY/ONCOLOGY DIAGNOSIS: Thrombocytopenia since 2010 Antiphospholipid syndrome (positive for lupus anticoagulant, anti-cardiolipin antibody and Beta-2 glycoprotein antibody, triple positive) -Pt developed DVT of LLE on 03/20/2022. Was eval'd at [facility] ED TREATMENT RENDERED: -high-dose Decadron 40 mg once a day started on 06/05/2018 for 4 days. - Rituxan weekly x4, in June 2018. No response. -IVIG for 2 days (1 gram/kilogram, 07/24/2018 and 07/25/2018.)--> platelet count increased to around 100,000. - high-dose Decadron 40 mg twice a day for 4 days between 11/21/2023 -11/24/2023, (Platelet count increased to around 118,000 as of 11/27/2023). Rituxan weekly x4 weeks (01/02/2024-01/23/2024) CURRENT TREATMENT: - Currently she is on tapering dose of prednisone, at present at 20 mg. There cutting down prednisone every weekly by 10 mg once she reaches about 10 mg, will cut down to 5 mg for 1 week and then discontinue prednisone. She is on Bactrim prophylaxis Lovenox 50 mg twice a day. 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 Patient states that yesterday she began experiencing blurry vision that would be intermittent leave worse than better. Also complained of increasing her palpitations and anxiety. Also states that she had some numbness and tingling of the left lower extremity which is new since last night as well. Her anxiety continued to worsen this morning and that is when she went into [facility]. [facility] for neurosurgical evaluation and further monitoring in the NSICU. INTERVAL HISTORY: She has come the clinic for the follow-up, she came to clinic by herself. [facility] subd[facility] hemat[facility], treated conservatively, she also had a thrombocytopenia, she received weekly Rituximab x4 but during the 4th cycle she had significant reaction so It was discontinued. Now she is at home, she lives by herself, ambulating slowly, she is on oral prednisone 20 mg per day. Currently she has on PCP prophylaxis with bactrim DS, nausea, no vomiting, current weight 180 lb.No bleeding from the sites. No fever Now she is back on anticoagulation, currently she is on Lovenox 50 mg every 12 hourly. PAST MEDICAL HISTORY: has a past medical history of Allergic rhinitis, Anti-phospholipid syndrome ([facility]), Prado's palsy (02/22/2018), Calculus of gallbladder, Calculus of gallbladder without mention of cholecystitis or obstruction, Chronic anticoagulation, Chronic mastoiditis, COVID-19 (11/28/2021), Dysfunction of eustachian tube, Esophageal reflux, Idiopathic thrombocytopenic purpura (ITP) ([facility]), Other ventral hernia without mention of obstruction or gangrene, Otitis media, and Sensorineural hearing loss, bilateral. ALLERGIES: Review of patient's allergies indicates: Allergen Reactions Codeine Hives and Itching Morphine And Related Rituxan [Rituximab] CURRENT MEDICATIONS: Current Outpatient Medications Medication Sig Dispense Refill Acetaminophen 500 MG Oral Tablet (Tylenol) Take 1 Tablet by mouth every 6 hours as needed for Pain.Take 1 -2 tab q 6 hr prn Loratadine 10 MG Oral Tablet Take 1 Tablet by mouth in the morning. Animated Speechuch Verio In Vitro Strip (Glucose Blood) USE STRIP TO CHECK GLUCOSE ONCE DAILY 100 Strip 3 OneTouch Delica Plus [id number] USE TO CHECK GLUCOSE ONCE DAILY 100 Each 3 Animated Speechuch Verio Flex System w/Device Kit Use as directed . Test BS once daily and as needed for hypoglycemia DX: E88.8/ Z83.3 1 Kit 0 Artificial Tears 83-15 % Ophthalmic Ointment Instill into the right eye every night at bedtime. 3.5g 2 Magnesium 250 MG Oral Tablet Take 1 Tablet by mouth in the morning. Pantoprazole Sodium 40 MG Oral Tablet Delayed Release (Protonix) TAKE 1 TABLET BY MOUTH ONCE DAILY 30 MINUTES BEFORE THE FIRST MEAL OF THE DAY. DO NOT, CRUSH OR CHEW TABLET 90 Tablet 1 Simvastatin 20 MG Oral Tablet (Zocor) TAKE 1 TABLET BY MOUTH ONCE DAILY AT NIGHT AT BEDTIME 90 Tablet 3 Polyethylene Glycol 3350 17 GM/SCOOP Oral Powder (Miralax) Mix 17g (1 capful to line) in 8-oz of water or juice and take by mouth daily as needed (Constipation). 119 g 0 Levoxyl 50 MCG Oral Tablet Take 1 Tablet by mouth in the morning. on an empty stomach.. 90 Tablet 1 levETIRAcetam 500 MG Oral Tablet (Keppra) Take 1 Tablet by mouth in the morning and 1 Tablet beforebedtime. 60 Tablet 5 Sennosides-Docusate Sodium 8.6-50 MG Oral Tablet (Senokot-S) Take 1 Tablet by mouth daily as neededfor Constipation. 15 Tablet 0 Sulfamethoxazole-Trimethoprim 800-160 MG Oral Tablet (Bactrim DS) Take 1 Tablet by mouth once a dayon Sunday, Sunday, and Sunday only. (Patient not taking: Reported on 02/08/2024) 15 Tablet 1 Enoxaparin Sodium 100 MG/ML Injection Solution Prefilled Syringe (Lovenox) Inject 50 mg under the skin in the morning and 50 mg before bedtime. 100 mL 0 predniSONE 20 MG Oral Tablet (Deltasone) Take 1 and 1/2 tablets by mouth x6 days, 1 tablet x1 week,then 1/2 tablet x1 week 14 Tablet 0 No current facility-administered medications for this visit. SOCIAL HISTORY: reports that she quit smoking about 5 years ago. Her smoking use included cigarettes. She started smoking about 20 years ago. She has a 7.5 pack-year smoking history. She has never used smokeless tobacco. She reports current alcohol use. She reports that she does not currently use drugs after having used the following drugs: Marijuana. FAMILY HISTORY: Family History Problem Relation Age of Onset Diabetes Mother Stroke Father Other (mva) Sister Cancer Uncle (Unspecified) unsure what type Eye Problems No significant family history Breast Cancer No significant family history ECOG: Performance Status 3 = 40-50% Bedtime > 50% OBJECTIVE: BP 103/65 (BP Site: Left Arm, BP Position: Sitting, BP Cuff Size: Large) | Pulse 81 | Temp 36.7 C(98 F) (Tympanic) | Wt 78.4 kg (172 lb 12.8 oz) | SpO2 97% | BMI 27.89 kg/m | BSA 1.91 m Constitutional: Patient is alert, cooperative and oriented x 3. Well built female, Patient is in noacute distress. HEENT: No icterus, no pallor, Throat and pharynx normal. Sinuses are non-tender. Neck: Supple and without lymphadenopathy or masses. No JVD. No Palpable supraclavicular lymph nodes. Lungs: Clear to auscultation. Bilateral symmetric air entry. No wheezing or rhonchi. Cardiovascular: Normal heart sounds, no murmurs.Regular rate and rhythm. Abdomen: Soft, nontender, no hepatomegaly, no splenomegaly. Bowel sounds are normal. Neurological: No gross focal neurological deficit; walks with a normal gait. Extremities: No finger clubbing, No cyanosis. No leg edema. Skin:: No skin rash. SPINE: No spinal or paraspinal tenderness. LABS: Blood workup done on 02/01/2024: WBC 7600 H&H of 13.7/41.2, Platelet count 56124 -BUN/Creat: 19/1.1, Calcium 9.9, normal LFT -PT --> 12.9. Blood workup done on 02/27/2024: - WBC 5300, H&H of 12/36, platelet count of 74,000 - BUN/Creat: 15/1.0, normal LFT, calcium 9.4. CBCD, comprehensive metabolic panel done today. CT head on 02/14/2024 at [facility]: -no acute abnormality, no intracranial bleeding. IMPRESSION: 1. Chronic idiopathic thrombocytopenia (HCC) 2. Antiphospholipid antibody syndrome (HCC) 3. History of DVT (deep vein thrombosis) 4. Encounter for antineoplastic chemotherapy PLAN: I reviewed with her regarding the recent hospitalization information, currently she is on oral prednisone 60 mg per day. She received Rituximab x4, during the 4th cycle she had a allergic reactions which was discontinued at that time Currently she is on tapering dose of prednisone, at 20 mg per day. She will have blood workup today. Will have CBCD checkup every weekly. We are cutting down prednisone by 10 mg every weekly. Once she reaches to 10 mg, will cut down to 5mg for additional week and then she will discontinue prednisone. She will continue Bactrim prophylaxis Currently she is on Lovenox 50 mg every 12 hourly and she will continue that. I am planning to see her back in the clinic in about [address] Ralph Barron Hem/Onc (This note was completed using the dictation program Fluency Direct. As such, there may be misspellings word substitutions, or other variations that should not change the essence of the clinical content of this encounter note. If there is need for further clarification, please direct questions to the provider listed above.) Blood workup done on 03/04/2024: -BUN/Creat: 13/1.1, normal LFT -WBC 5900, H&H of 12/36.9, MCV 98, [place] [address] Dr[address] Ralph Barron Hem/Onc documented in this encounter Nursing Notes * Samaria Andre, MED ASSIST - 03/04/2024 1:01 PM EDT Patient identifed by name and birthdate Do you have any concerns about pain management for today's visit? No Living Will or Advance Directive for Health Care as noted on the problem list. [email or web address] is a way you can talk to your provider on line through e-mail. Would you like to sign up? I can activate it for you? ALREADY ACTIVE Filed Vitals: 03/04/24 1300 BP: 103/65 Pulse: 81 Temp: 36.7 C (98 F) TempSrc: Tympanic SpO2: 97% Weight: 78.4 kg (172 lb 12.8 oz) Patient was instructed to not get up on the exam table/exam chair until directed and assisted by their provider; patient is to remain seated in the chair/ wheelchair/ exam table/ exam chair for fall prevention and safety reasons. Patient is aware to have assistance to step down off exam table/exam chair with personnel. Patient voiced full comprehension of instructions. Note: patient reports that she does feel dizzy and lightheadedness. She reports that her oxygen level drops at night to around 88 and she is concerned. documented in this encounter Plan of Treatment Upcoming Encounters Date Type Department Care Team (Late st Contact Info) Description 03/05/2024 7:00 AM EDT Laboratory Lab [facility]le[facility] [address] [place] [address] [id number] [facility] [address] [place] [address] [address] 03/11/2024 7:05 AM EDT Laboratory Lab [facility] [address] [place] [address] [id number] [facility] [address] [place] [address] [address] 03/12/2024 6:00 AM EDT [facility] [address] [facility] [address] [facility] [address] 03/12/2024 7:00 AM EDT Laboratory Lab [facility] [address] [place] [address] [address] [facility] [address] [place] [address] [address] 03/19/2024 7:00 AM EDT Laboratory Lab [facility] [address] [place] [address] [address] [facility] [address] [place] [address] 03/26/2024 7:00 AM EDT Laboratory [facility] [address] [place] [address] [facility] [address] [place] [address] 04/02/2024 7:00 AM EDT Laboratory Lab [facility] [address] [place] [address] [facility] [address] [place] [address] 04/09/2024 7:00 AM EDT Laboratory Lab [facility]bot[facility] [address] [employer] [facility] [place] [address] [facility] [address] [employer] [place] [address] 04/16/2024 7:00 AM EDT Laboratory Lab [facility] [address] [place] [address] [facility] [address] [employer] [place] [address] 04/23/2024 7:00 AM EDT Laboratory Lab [facility] [address] [employer] [place] [address] [facility] [address] [employer] [place] [address] 04/30/2024 7:00 AM EDT Laboratory Lab [facility] [address] [place] [address] [facility] [address] [employer] [place] [address] 05/07/2024 7:00 AM EDT Laboratory Lab [facility] [address] [place] [address] [facility] [address] [employer] [place] [address] 05/14/2024 7:00 AM EDT Laboratory Lab [facility] [address] [place] [address] [facility] [address] [place] [address] 05/21/2024 7:00 AM EDT Laboratory Lab [facility] [address] [employer] [facility] [place] [address] [facility] [address] [place] [address] 05/28/2024 7:00 AM EDT Laboratory Lab [facility] [address] [place] [address] [facility] [address] [place] [address] 06/04/2024 7:00 AM EDT Laboratory Lab [facility] [address] [place] [address] [facility] [address] [place] [address] 06/11/2024 7:00 AM EDT Laboratory Lab [facility] [address] [place] [address] [facility] [address] [place] [address] 06/18/2024 7:00 AM EDT Laboratory Lab [facility]bot[facility] [address] [employer] [facility] [place] [address] [facility] [address] [place] [address] 06/20/2024 10:45 AM EDT Office Visit Hematology/Oncology [facility] [place] [address] [place] [phone] Ralph Barron MD [address] [place] [address] 06/25/2024 7:00 AM EDT Laboratory Lab [facility] [address] [place] [address] [facility] [address] [facility] [place] [address] 08/12/2024 1:20 PM EDT Office Visit [address] [phone] Millie Lovell CRNP [address] [place] [address] [place] [address] 02/10/2025 1:40 PM EDT Office Visit [address] [place] [phone] Jewels Greenfield MD [address] [place] [address] [place] [address] Scheduled Procedures Name Priority Associated Diagnoses Date/Ti [...] 11/05, 10/04/2023, Additional history exists Diabetes Screening 03/04/2027 03/04/2024, 0 02/27/2024, 02/20/2024, Additional history exists Lipid Panel 10/04/2028 10/04/2023, [...] this encounter Medical Devices Implanted Type Area Member Service Specialist Device Identifier Shelf Expiration Date Model / Serial / Lot [place] 18 Liq Embolic Agent - [id number] Implanted:Qty: 1 on 12/31/2023 by Hesham Martell MD, PhD at [facility] [employer] : NEURO CARE [id number] 01/24/2026 [id number] / / [id number] Description:Lot #[id number] documented as of this encounter Procedures Procedure Name Priority Date/Time Associated Diagnosis Comments DIFFERENTIAL, AUTOMATED STAT 03/04/2024 1:30 PM EDT Acute ITP (HCC) Antiphospholipid antibody syndrome (HCC) History of DVT (deep vein thrombosis) COMPREHENSIVE METABOLIC PANEL STAT 03/04/2024 1:30 PM EDT Acute ITP (HCC) Antiphospholipid antibody syndrome (HCC) History of DVT (deep vein thrombosis) CBC STAT 03/04/2024 1:30 PM EDT Acute ITP (HCC) Antiphospholipid antibody syndrome (HCC) History of DVT (deep vein thrombosis) CBC STAT 03/04/2024 1:30 PM EDT Acute ITP (HCC) Antiphospholipid antibody syndrome (HCC) History of DVT (deep vein thrombosis) DIFFERENTIAL, TECHNOLOGIST REVIEW Routine 03/04/2024 1:30 PM EDT Acute ITP (HCC) Antiphospholipid antibody syndrome (HCC) History of DVT (deep vein thrombosis) documented in this encounter Results * DIFFERENTIAL, TECHNOLOGIST REVIEW (03/04/2024 1:30 PM EDT) Pathologist [facility] nRBCs 03/04/2024 1:51 PM EDT [facility] 56-02 Blood Venous blood specimen / Unknown Venipuncture / Unknown 03/04/2024 1:30 PM EDT 03/04/2024 1:30 PM EDT Ralph Barron MD LAB BLOOD ORDERABLES [facility] 56-[address] [place] [address] * DIFFERENTIAL, AUTOMATED (03/04/2024 1:30 PM EDT) [facility] WBC 5.98 4.00 - 10.80 K/uL 03/04/2024 1:51 PM EDT [facility] 56-02 Neutrophils % 68.7 40.0 - 75.0 % 03/04/2024 1:51 PM EDT [facility] 56-02 Lymphocytes % 19.1 18.0 - 42.0 % 03/04/2024 1:51 PM EDT [facility] 56-02 Monocytes % 10.0 1.0 - 11.0 % 03/04/2024 1:51 PM EDT [facility] 56-02 Eosinophils % 0.2 0.0 - 6.0 % 03/04/2024 1:51 PM EDT [facility] 56-02 Basophils % 2.0 0.0 - 2.0 % 03/04/2024 1:51 PM EDT [facility] 56-02 Absolute Neutrophils 4.11 1.80 - 7.70 K/uL 03/04/2024 1:51 PM EDT [facility] 56-02 Absolute Lymphocytes 1.14 1.00 - 4.80 K/ul 03/04/2024 1:51 PM EDT [facility] 56-02 Absolute Monocytes 0.60 0.00 - 1.10 K/uL 03/04/2024 1:51 PM EDT [facility] 56-02 Absolute Eosinophils 0.01 0.00 - 0.70 K/uL 03/04/2024 1:51 PM EDT [facility] 56-02 Absolute Basophils 0.12 0.00 - 0.20 K/uL 03/04/2024 1:51 PM EDT [facility] 56 Blood Venous blood specimen / Unknown Venipuncture / Unknown 03/04/2024 1:30 PM EDT 03/04/2024 1:30 PM EDT Ralph Barron MD LAB BLOOD ORDERABLES [place] [address] [place], [place] [id number] * (ABNORMAL) CBC (03/04/2024 1:30 PM EDT) WBC 5.98 4.00 - 10.80 K/uL 03/04/2024 1:[address] RBC 3.76 3.85 - 5.15 M/uL 03/04/2024 1:[address] HGB 12.1 12.0 - 15.3 g/dL 03/04/2024 1:[address] HCT 36.9 36.0 - 45.2 % 03/04/2024 1:[address] MCV 98.1 81.5 - 97.5 fL 03/04/2024 1:[address] MCH 32.2 27.0 - 34.0 pg 03/04/2024 1:[address] MCHC 32.8 32.0 - 36.0 g/dL 03/04/2024 1:[address] RDW 17.6 11.5 - 15.5 % 03/04/2024 1:51 PM EDT [facility] 56 PLT 60(L) 140 - 400 K/uL 03/04/2024 1:[address]T [address] MPV 10.2 6.6 - 11.1 fL 03/04/2024 1:51 PM EDT [facility] 56 Blood Venous blood specimen / Unknown Venipuncture / Unknown 03/04/2024 1:30 PM EDT 03/04/2024 1:30 PM EDT Ralph Barron MD LAB BLOOD ORDERABLES [place] [address] [address] [place] [address] * (ABNORMAL) COMPREHENSIVE METABOLIC PANEL (03/04/2024 1:30 PM EDT) BUN 13 6 - 20 mg/dL 03/04/2024 2:[address] Creatinine 1.1(H) 0.5 - 1.0 mg/dL 03/04/2024 2:[address]T [address] Estimated Glomerular Filtration Rate 60 >=60 mL/min 03/04/2024 2:03 PM EDT [facility] 56 Comment:eGFR is calculated b ased on the CKD-EPI 2020 equation Sodium 135 135 - 146 mmol/L 03/04/2024 2:03 PM EDT [address] Potassium 4.4 3.5 - 5.1 mmol/L 03/04/2024 2:03 PM EDT [facility] 56 Chloride 102 98 - 107 mmol/L 03/04/2024 2:03 PM EDT [facility] 56 CO2 21(L) 22 - 32 mmol/L 03/04/2024 2:03 PM EDT [facility] INCURABLES 56 Anion Gap 12 7 - 15 mmol/L 03/04/2024 2:03 PM EDT [facility] 56 Glucose 101 70 - 120 mg/dL 03/04/2024 2:03 PM EDT [facility] 56 Albumin 3.9 3.8 - 5.0 g/dL 03/04/2024 2:03 PM EDT [facility] 56 AST 24 10 - 35 U/L 03/04/2024 2:03 PM EDT [facility] 56 Comment:Result may be falsel y elevated due to hemolysis. Alkaline Phosphatase 57 35 - 130 U/L 03/04/2024 2:03 PM EDT [facility] 56 Bilirubin, Total 1.0 <=1.2 mg/dL 03/04/2024 2:03 PM EDT [facility] 56 Calcium 9.5 8.4 - 10.2 mg/dL 03/04/2024 2:03 PM EDT [facility] 56 Protein 7.1 6.0 - 8.3 g/dL 03/04/2024 2:03 PM EDT [facility] 56- ALT 22 10 - 35 U/L 03/04/2024 2:03 PM EDT [facility] 56 Blood Venous blood specimen / Unknown Venipuncture / Unknown 03/04/2024 1:30 PM EDT 03/04/2024 1:30 PM EDT Ralph Barron MD LAB BLOOD ORDERABLES [facility] [address]- [address] [place] [address] documented in this encounter Visit Diagnoses Diagnosis Acute ITP (HCC)- Primary Immune thrombocytopenic purpura Antiphospholipid antibody syndrome (HCC) Primary hypercoagulable state History of DVT (deep vein thrombosis) Personal history of venous thrombosis and embolism documented in this encounter Advance Directives Latest [...] Code 11/16/2023 12:39 AM 11/21/2023 7:18 PM Thi s order reflects the patients wishes and were consensually agreed upon. Question Answer Comments Discussion of Advance Directives occurred with: Patient Care Teams Technology Resource Teacher Relationship Specialty Start Date End Date Jewels Greenfield MD [address] [place] [address] [place] [phone] PCP - General Family Medicine 02/18/24 documented as of this encounter"
--- OUTSIDE RECORDS SUMMARY | 2024-03-31 08:13 | External Medical Summary | Summary of Care ---
Author Name Unknown Organization [facility] Address [address] [place] [address] Phone [phone] Care Team Providers Care Electric Accounting Machine Operator Name Role Phone Jewels Greenfield MD Primary Care Provide r Reason for Visit * Reason Onset Date Comments Appointment 02/18/2024 Encounter Details Date Type Department Care Team ([facility] st Contact Info) Description 02/18/2024 Telephone [facility] [address] [place] [address] Angela Garcia RN Appointment Allergies Active Allergy Reactions Criticality Noted Date Comments Codeine Hives,Itching 06/07/2018 Morphine And Related 01/28/2008 Rituximab 02/08/2024 documented as of this encounter (statuses as of 03/05/2024) Medications Medication Sig Dispensed Refills Start Date [...] Strip 3 2 Active OneTouch Delica Plus [id number] USE TO CHECK GLUCOSE ONCE DAILY 100 Each 3 2 Active OneTouch Verio Flex System w/Device KitIndications:Hypogl ycemia Use as directed . Test BS once daily and as needed for hypoglycemia DX: E88.8/ Z83.3 1 Kit 0 2 Active Artificial Tears 83-15 % Ophthalmic OintmentIndications:B ell's palsy Instill into the right eye every [...] 3 Active Simvastatin 20 MG Oral Tablet (Zocor)Indications:Dy slipidemia, goal LDL below 130 TAKE 1 TABLET [...] 4 Active levETIRAcetam 500 MG Oral Tablet (Keppra)Indications:T hrombocytopenia (HCC) Take 1 Tablet by mouth in the morning and 1 Tablet before bedtime. 60 Tablet 5 4 Active Sennosides-Docusate Sodium 8.6-50 MG Oral Tablet (Senokot-S) Take 1 Tablet by mouth daily as needed for Constipation. 15 Tablet 0 4 Active Sulfamethoxazole-Trim ethoprim 800-160 MG Oral Tablet (Bactrim DS)Indications:Idiopa thic thrombocytopenic purpura (ITP) (HCC) Take 1 Tablet by mouth once a day on Sunday, Sunday, and Sunday only. 15 Tablet 1 4 Active Additional Information Patient not taking.Reported on 02/08/2024 predniSONE 20 MG Oral Tablet (Deltasone) Take 3 Tablets by mouth in the morning. 90 Tablet 0 4 02/25/20 24 Discontinu ed(Refill) documented as of this encounter (statuses as of 03/05/2024) Active Problems Problem Noted Date Diagnosed Date [...] as of this encounter (statuses as of 03/05/2024) Resolved Problems Problem Noted Date Diagnosed Date [...] as of this encounter (statuses as of 03/05/2024) Immunizations Name Administration Dates Next Due Pneumococcal Conjugate Vacci ne, 20-valent ([id number]) 05/30/2022 Pneumococcal Polysaccharide PPV23 (Pneumovax) 09/24/2012,07/08/2009(Deferred: Patient [...] encounter Miscellaneous Notes * Telephone Encounter - Angela Garcia RN - 02/18/2024 1:43 PM EDT Placed call out to patient [phone], spoke with patient and verified by name and . Advised I called because she is scheduled for 1 mo return telephone tomorrow with Dr. Martell, although I do not see she had CTh completed. She advised she had a CTH completed 02/13 @ [facility] ED, she was worked up for weakness, they advised she overdid laxatives/stool softeners. Will have our team work on retrieving images for appt tomorrow. Angela Garcia RN Cerebrovascular Nurse Navigator [facility] documented in this encounter Plan of Treatment Upcoming Encounters Date Type Department Care Team (Late st Contact Info) Description 03/11/2024 7:05 AM EDT Laboratory Lab [facility] Phlebotomy [facility] [address] [place] [address] [facility] [address] [place] [address] 03/12/2024 6:00 AM EDT Anticoagulation Pharmacy Call Center 58[address] [facility] [place] [address] C[facility]ps, [facility] 58 60 [facility] [place] [address] 03/12/2024 7:00 AM EDT Laboratory [facility]bot[facility] [address] [place] [address] [address] [facility] [address] [place] [address] 03/19/2024 7:00 AM EDT Laboratory Lab [facility]lebot[facility] [address] [place] [address] [facility] [address] [place] [address] 03/26/2024 7:00 AM EDT Laboratory [facility]bot[facility] [address] [place] [place] [address] [address] [facility] [address] [place] [place] [address] [address] 04/02/2024 7:00 AM EDT Laboratory Lab [facility] Phlebot[facility] [address] [place] [address] M[facility], [facility] [address] [place] [address] 04/09/2024 7:00 AM EDT Laboratory Lab [facility]lebot[facility] [address] [place] [address] M[facility], [facility] [address] [place] [address] 04/16/2024 7:00 AM EDT Laboratory Lab [facility]bot[facility] [address] [place] [address] M[facility], [facility] [address] [place] [address] 04/23/2024 7:00 AM EDT Laboratory Lab [facility] Phlebot[facility] [address] [place] [address] [facility], [facility] [address] [place] [address] 04/30/2024 7:00 AM EDT Laboratory Lab [facility] Phlebotomy [facility] [address] [place] [address] M[facility], [facility] [address] [place] [address] 05/07/2024 7:00 AM EDT Laboratory Lab [facility]lebot[facility] [address] [place] [address] M[facility], [facility] [address] [place] [address] 05/14/2024 7:00 AM EDT Laboratory Lab [facility] Phlebotomy [facility] [address] [place] [address] M[facility], [facility] [address] [place] [address] 05/21/2024 7:00 AM EDT Laboratory Lab Mobile Phlebotomy [facility] [address] [place] [address] M[facility], [facility] [address] [place] [address] 05/28/2024 7:00 AM EDT Laboratory Lab [facility]bot[facility] [address] [place] [address] [facility], [facility] [address] [place] [address] 06/04/2024 7:00 AM EDT Laboratory Lab [facility] Phlebotomy [facility] [address] [place] [address] M[facility], [facility] [address] [place] [address] 06/11/2024 7:00 AM EDT Laboratory Lab Mobile Phlebotomy [facility] [address] [employer], [place] [address] M[facility], [facility] [address] [place] [address] 06/18/2024 7:00 AM EDT Laboratory [facility] [address] [place], [place] [address] [facility], [facility] [address] [place] [address] 06/20/2024 10:45 AM EDT Office Visit Hematology/Oncology [employer] [address] [place], [place] [phone] Ralph Barron MD [address] [facility] [address] [place] [address] 06/25/2024 7:00 AM EDT Laboratory Lab [facility] Phlebot[facility] [address] [place] [address] [facility], [facility] [address] [employer], [place] [address] 08/12/2024 1:20 PM EDT Office Visit Family Medicine [address] [place] [phone] Millie Lovell CRNP [address] [place] [address] [place] [address] 02/10/2025 1:40 PM EDT Office Visit Family Medicine [address] [place] [phone] Jewels Greenfield MD [address] [place] [address] [place] [address] Scheduled Procedures Name Priority Associated Diagnoses Date/Ti [...] 09/09/2020 Cologuard 05/07/2022 05/07/2019 COVID-19 Vaccine ( - 2022- season) 2023 Influenza Vaccine (FLU shot) (Season [...] this encounter Medical Devices Implanted Type Area Game Show Host Device Identifier Shelf Expiration Date Model / Serial / Lot Henrik 18 Liq Embolic Agent - [id number] Implanted:Qty: 1 on 12/31/2023 by Hesham Martell MD, PhD at [facility] [employer] : NEURO CARE [id number] 01/24/2026 105-7100-06 0 / / [id number] Description:Lot #[id number] documented as of this encounter Advance Directives [...] Advance Directives occurred with: Patient Care Teams Electric Accounting Machine Operator Relationship Specialty Start Date End Date Jewels Greenfield MD [address] [place] [address] [place] [id number] PCP - General Family Medicine 02/18/24 documented as of this encounter
--- OUTSIDE RECORDS SUMMARY | 2024-03-31 08:13 | External Medical Summary | Summary of Care ---
Author Name Unknown Organization [facility] Address [address] [place] [address] Phone [phone] Care Team Providers Care Automatic Bandsaw Tender Name Role Phone Jewels Greenfield MD Primary Care Provide r Reason for Visit * Reason Onset Date Comments FYI 12/13/2023 Bump from inject ion Encounter Details Date Type Department Care Team (Late st Contact Info) Description 12/13/2023 Telephone Family Practice [facility] [address] [place] [address] Aileen Black CRNP [address] [place] [address] FYI (Bump from injection) Allergies Active Allergy Reactions Criticality Noted Date [...] Strip 3 05/15/2022 Active OneTouch Delica Plus [id number] USE TO CHECK GLUCOSE ONCE DAILY 100 Each 3 05/15/2022 Active OneTouch Verio Flex System w/Device KitIndications:Hyp oglycemia Use as directed . Test BS once daily and as needed for hypoglycemia DX: E88.8/ Z83.3 1 Kit 0 05/16/2022 Active Artificial Tears 83-15 % Ophthalmic OintmentIndication s:Prado's palsy Instill into the right eye every [...] 03/29/2023 Active Simvastatin 20 MG Oral Tablet (Zocor)Indications :Dyslipidemia, goal LDL below 130 TAKE 1 TABLET [...] empty stomach.. 90 Tablet 1 11/23/2023 Active documented as of this encounter (statuses [...] Next Due Pneumococcal Conjugate Vacci ne, 20-valent ([id number]) 05/30/2022 Pneumococcal Polysaccharide PPV23 (Pneumovax) 09/24/2012,07/08/2009(Deferred: Patient [...] (15 years old or older) No 11/16/19 Cognitive Status Response Date of Assessm ent Because of a physical, menta l, or emotional condition, do you have serious difficulty concentrating, remembering, or making decisions? (5 years old or older) No 11/16/2023 documented as of this encounter Miscellaneous Notes * Telephone Encounter - Ivette De RN - 12/13/2023 3:49 PM EST noted * Telephone Encounter - Gladys Cedillo OSA - 12/13/2023 2:15 PM EST EDGAR castro/[facility] Home Health is calling to inform Dr that pt gave herself her Lovenox injection yesterday 12/12 & today has a bump where the injection was. Pt is scheduled for an appt tomorrow 12/14/23. Please call if you have any questions (No answer at the dedicated nurse line) documented in this encounter Plan of Treatment Upcoming Encounters Date Type Department Care Team (Late st Contact Info) Description 03/19/2024 7:00 AM EDT Laboratory Lab Mobile Phlebotomy [facility] [address] [place] [address] M[facility], [facility] [address], [place] [address] 03/26/2024 7:00 AM EDT Laboratory Lab [facility] Phlebotomy [facility] [address], [place] [address] M[facility], [facility] [address], [place] [address] 04/02/2024 7:00 AM EDT Laboratory Lab [facility] Phlebotomy [facility] [address], [place] [address] M[facility], [facility] [address], [place] [address] 04/03/2024 6:00 AM EDT Anticoagulation Pharmacy Call Center 58[address] [facility] [place] [address] [facility], [facility] 58 60 [facility] [place] [address] 04/09/2024 7:00 AM EDT Laboratory Lab Mobile Phlebotomy [facility] [address], [place] [address] Mv[facility], [facility] [address], [place] [address] 04/16/2024 7:00 AM EDT Laboratory Lab [facility] Phlebot[facility] [address], [place] [address] M[facility], [facility] [address] [place] [address] 04/23/2024 7:00 AM EDT Laboratory Lab Mobile Phlebotomy [facility] [address], [place] [address] M[facility], [facility] [address], [place] [address] 04/30/2024 7:00 AM EDT Laboratory Lab Mobile Phlebotomy [facility] [address] [place] [address] M[facility], [facility] [address] [facility] [place] [address] 05/07/2024 7:00 AM EDT Laboratory Lab Mobile Phlebotomy [facility] [address] [facility] [place] [address] Mv[facility], [facility] [address] [facility] [place] [address] 05/14/2024 7:00 AM EDT Laboratory Lab Mobile Phlebotomy [facility] [address] [facility] [place] [address] Mvmg, [facility] Draw [address] [place] [address] 05/21/2024 7:00 AM EDT Laboratory Lab Mobile Phlebotomy [facility] [address] [facility] [place] [address] Mvmg, [facility] Draw [address] [place] [employer] [place] [address] 05/28/2024 7:00 AM EDT Laboratory Lab Mobile Phlebotomy [facility] [address] [place] [address] Mvmg, [facility] Draw [address] [place] [address] 06/04/2024 7:00 AM EDT Laboratory Lab Mobile Phlebotomy [facility] [address] [place] [address] Mvmg, [facility] [address] [place] [employer] [place] [address] 06/11/2024 7:00 AM EDT Laboratory Lab Mobile Phlebotomy [facility] [address] [facility] [place] [address] Mvmg, [facility] [address] [place] [address] 06/18/2024 7:00 AM EDT Laboratory Lab Mobile Phlebotomy [facility] [address] [place] [address] Mv[facility], [facility] [address] [place] [employer] [place] [address] 06/20/2024 10:45 AM EDT Office Visit Hematology/Oncology [facility] [place] [address] [facility] [place] [phone] Ralph Barron MD [address] [facility] [place] [address] 06/25/2024 7:00 AM EDT Laboratory Lab Mobile Phlebotomy [facility] [address] [place] [employer] [place] [address] [facility], [facility] [address] [place] [employer] [place] [address] 08/12/2024 1:20 PM EDT Office Visit Family [address] [phone] Millie Lovell CRNP [address] [place] [address] [place] [address] 02/10/2025 1:40 PM EDT Office Visit [address] [phone] Jewels Greenfield MD [address] [place] [address] [place] [address] Scheduled Procedures Name Priority Associated Diagnoses Date/Ti [...] this encounter Medical Devices Implanted Type Area Paragliding Instructor Device Identifier Shelf Expiration Date Model / Serial / Lot Aspen 18 Liq Embolic Agent - [id number] Implanted:Qty: 1 on 12/31/2023 by Hesham Martell MD, PhD at [facility] [employer] : NEURO CARE [id number] 01/24/2026 105-7100-06 0 / / [id number] Description:Lot #[id number] documented as of this encounter Additional Health Concerns Infection Onset [...] Advance Directives occurred with: Patient Care Teams Automatic Bandsaw Tender Relationship Specialty Start Date End Date Jewels Greenfield MD [address] [place] [address] [place] [phone] PCP - General Family Medicine 02/18/24 documented as of this encounter
--- OUTSIDE RECORDS SUMMARY | 2024-03-31 08:13 | External Medical Summary ---
Author Name Unknown Address Unknown Organization K01:LABORATORY [facility] - [address] [facility] [place] [address] Laboratory Report Ordering Provider Test Date Status SHERLYN ROBLES 02/27/2024 11:40:00 Final Observation Date Value Abnormality Reference (Units ) Status SYNC LEUKOCYTES IN BLOOD BY AUTOMATED COUNT 02/27/2024 11:40:00 5.34 4.00-10.80 (K/uL) Final Segs 02/27/2024 11:40:00 66.1 40.0-75.0 (%) Final Lymphs % 02/27/2024 11:40:00 23.8 18.0-42.0 (%) Final Monos 02/27/2024 11:40:00 8.6 1.0-11.0 (%) Final Eosinophils 02/27/2024 11:40:00 0.0 0.0-6.0 (%) Final Basos 02/27/2024 11:40:00 0.0 0.0-2.0 (%) Final Immature Granulocyte, Percent 02/27/2024 11:40:00 1.5 0.0-2.0 (%) Final Absolute Segs 02/27/2024 11:40:00 3.53 1.80-7.70 (K/uL) Final Lymphs, absolute 02/27/2024 11:40:00 1.27 1.00-4.80 (K/ul) Final Monos, Abs 02/27/2024 11:40:00 0.46 0.00-1.10 (K/uL) Final Eos, Abs 02/27/2024 11:40:00 0.00 0.00-0.70 (K/uL) Final Basos, Abs 02/27/2024 11:40:00 0.00 0.00-0.20 (K/uL) Final Immature Granulocytes, Number 02/27/2024 11:40:00 0.08 0.00-0.20 (K/uL) Final Performing Location LABORATORY [facility] - [address] [facility] [address]
--- OUTSIDE RECORDS SUMMARY | 2024-03-31 08:13 | External Medical Summary ---
Author Name Unknown Address Unknown Organization K09:LABORATORY [id number] - [address] [place] [address] Laboratory Report Ordering Provider Test Date Status SHERLYN ROBLES 03/04/2024 13:30:29 Final Observation Date Value Abnormality Reference (Units ) Status BUN 03/04/2024 13:30:29 13 6-20 (mg/dL) Final Creatinine 03/04/2024 13:30:29 1.1 Above high normal 0.5-1.0 (mg/dL) Final Glomerular filtration rate/1.73 sq M.predicted [Volume Rate/Area] in Serum, Plasma or Blood by Creatinine-based formula (CKD-EPI) 03/04/2024 13:30:29 60 >=60 (mL/min) Final eGFR is calculated based on the CKD-EPI 2020 equation Sodium 03/04/2024 13:30:29 135 135-146 (m mol/L) Final Potassium 03/04/2024 13:30:29 4.4 3.5-5.1 (m mol/L) Final Cl 03/04/2024 13:30:29 102 98-107 (mm ol/L) Final CO2 03/04/2024 13:30:29 21 Below low normal 22- 32 (mmol/L) Final Anion gap 03/04/2024 13:30:29 12 7-15 (mmol /L) Final Glucose 03/04/2024 13:30:29 101 70-120 (mg /dL) Final Albumin 03/04/2024 13:30:29 3.9 3.8-5.0 (g /dL) Final AST (Aspartate aminotransferase) 03/04/2024 13:30:29 24 10-35 (U/L) Fin al Result may be falsely elevat ed due to hemolysis. Alk Phos 03/04/2024 13:30:29 57 35-130 (U/ L) Final Bilirubin, Total 03/04/2024 13:30:29 1.0 <=1 .2 (mg/dL) Final Calcium 03/04/2024 13:30:29 9.5 8.4-10.2 ( mg/dL) Final Protein 03/04/2024 13:30:29 7.1 6.0-8.3 (g /dL) Final ALT (Alanine aminotransferase) 03/04/2024 13:30:29 22 10-35 (U/L) Final Performing Location LABORATORY [facility] [address] [place] [address]
--- OUTSIDE RECORDS SUMMARY | 2024-03-31 08:13 | External Medical Summary | Summary of Care ---
Author Name Unknown Organization [facility] Address [address] [place] [address] Phone [phone] Care Team Providers Care Hog Feeder Name Role Phone Jewels Greenfield MD Primary Care Provide r Reason for Visit * Reason Comments Outpatient Testing Encounter Details Date Type Department Care Team (Late st Contact Info) Description 03/04/2024 1:50 PM EDT Laboratory Laboratory [facility] [place] [address] [place] [phone] [place], Lab Scenery [address] [place] [address] Arrived Allergies Active Allergy Reactions Criticality Noted Date [...] Strip 3 05/15/2022 Active OneTouch Delica Plus [id number] USE TO CHECK GLUCOSE ONCE DAILY 100 Each 3 05/15/2022 Active OneTouch Verio Flex System w/Device KitIndications:Hypogly cemia Use as [...] Next Due Pneumococcal Conjugate Vacci ne, 20-valent ([id number]) 05/30/2022 Pneumococcal Polysaccharide PPV23 (Pneumovax) 09/24/2012,07/08/2009(Deferred: Patient [...] No 12/25/2023 documented as of this encounter Plan of Treatment Upcoming Encounters Date Type Department Care Team (Late st Contact Info) Description 03/05/2024 7:00 AM EDT Laboratory Lab [facility] [address] [place] [address] [facility] [address] [place] [address] 03/11/2024 7:05 AM EDT Laboratory [facility] [address] [place] [address] [address] [facility] [address] [place] [address] [address] 03/12/2024 6:00 AM EDT Anticoagulation Pharmacy Call Center 58-60 [facility] [place] [address] [facility] 58 60 [facility] [place] [address] 03/12/2024 7:00 AM EDT Laboratory [facility] [address] [place] [address] [address] [facility], [facility] [address] [place] [address] 03/19/2024 7:00 AM EDT Laboratory [facility] [address] [place] [address] [address] [facility], [facility] [address] [place], [place] [address] 03/26/2024 7:00 AM EDT Laboratory [facility] [address] [place] [address] [facility], G[facility] [address] [place] [address] [address] 04/02/2024 7:00 AM EDT Laboratory [facility] [address] [place] [address] [facility], G[facility] 2520 [facility] [place] [address] 04/09/2024 7:00 AM EDT Laboratory [facility] 2520 [facility] [place] [address] Mvmg, Gml [facility] Draw 2520 [facility] [place] [address] 04/16/2024 7:00 AM EDT Laboratory [facility] [address] [place] [address] M[facility], Gml [facility] Draw 2520 [facility] [place] [address] 04/23/2024 7:00 AM EDT Laboratory [facility] [address] [place] [address] M[facility], Gml [facility] Draw [address] [employer] [place] [address] 04/30/2024 7:00 AM EDT Laboratory Lab [facility] 2520 [employer] [facility] [place] [address] Mvmg, Gml [facility] Draw 2520 [facility] [place] [address] 05/07/2024 7:00 AM EDT Laboratory [facility] 2520 [facility] [place] [address] M[facility]mg, Gml [facility] Draw [address] [employer] [place] [address] 05/14/2024 7:00 AM EDT Laboratory Lab [facility] [address] [employer] [facility] [place] [address] Mvmg, Gml [facility] Draw 2520 [facility] [place] [address] 05/21/2024 7:00 AM EDT Laboratory [facility] 2520 [facility] [place] [address] Mvmg, Gml [facility] Draw [address] [place] [address] 05/28/2024 7:00 AM EDT Laboratory [facility] [address] [place], [place] [address] [facility], G[facility] [address] [place], [place] [address] 06/04/2024 7:00 AM EDT Laboratory Lab [facility] [address] [place], [place] [address] [facility], Gml [facility] Draw [address] [facility] [place] [address] 06/11/2024 7:00 AM EDT Laboratory Lab [facility] [address] [place] [address] [facility], Gml [facility] Draw 2520 [facility] [place], [place] [address] 06/18/2024 7:00 AM EDT Laboratory [facility] [address] [employer] [place], [place] [address] M[facility]mg, Gml [facility] Draw 2520 [facility] [place], [place] [address] 06/20/2024 10:45 AM EDT Office Visit Hematology/Oncology [facility] [place] 200 [facility] [place], [place] [phone] Ralph Barron MD 200 [facility] [place] [address] 06/25/2024 7:00 AM EDT Laboratory Lab [facility] [address] [place] [address] M[facility], Gml [facility] Draw 2520 [facility] [place], [place] [address] 08/12/2024 1:20 PM EDT Office Visit Family Medicine [address] [place] [phone] Millie Lovell [address] [place] [address] 02/10/2025 1:40 PM EDT Office Visit Family Medicine [address] [place] [phone] Jewels Greenfield MD [address] [place] [address] [place] [address] Scheduled Procedures Name Priority Associated Diagnoses Date/Ti [...] 11/05, 10/04/2023, Additional history exists Diabetes Screening 02/26/2027 02/27/2024, 0 02/20/2024, 02/13/2024, Additional history exists Lipid Panel 10/04/2028 10/04/2023, [...] this encounter Medical Devices Implanted Type Area Fountain Roller Assembler Device Identifier Shelf Expiration Date Model / Serial / Lot Henrik 18 Liq Embolic Agent - [id number] Implanted:Qty: 1 on 12/31/2023 by Hesham Martell MD, PhD at [facility] [employer] : NEURO CARE [id number] 01/24/2026 105-7100-06 0 / / [id number] Description:Lot #[id number] documented as of this encounter Advance Directives [...] Advance Directives occurred with: Patient Care Teams Hog Feeder Relationship Specialty Start Date End Date Jewels Greenfield MD [address] [place] [address] [place] [address] PCP - General Family Medicine 02/18/24 documented as of this encounter
--- OUTSIDE RECORDS SUMMARY | 2024-03-31 08:13 | External Medical Summary ---
Author Name Unknown Address Unknown Organization K01:[facility] - [address] [facility] [address] Laboratory Report Ordering Provider Test Date Status SHERLYN ROBLES 03/12/2024 11:45:00 Final Observation Date Value Abnormality Reference (Units ) Status SYNC LEUKOCYTES IN BLOOD BY AUTOMATED COUNT 03/12/2024 11:45:00 4.46 4.00-10.80 (K/uL) Final Segs 03/12/2024 11:45:00 66.2 40.0-75.0 (%) Final Lymphs % 03/12/2024 11:45:00 22.2 18.0-42.0 (%) Final Monos 03/12/2024 11:45:00 9.6 1.0-11.0 (%) Final Eosinophils 03/12/2024 11:45:00 0.2 0.0-6.0 (%) Final Basos 03/12/2024 11:45:00 0.2 0.0-2.0 (%) Final Immature Granulocyte, Percent 03/12/2024 11:45:00 1.6 0.0-2.0 (%) Final Absolute Segs 03/12/2024 11:45:00 2.95 1.80-7.70 (K/uL) Final Lymphs, absolute 03/12/2024 11:45:00 0.99 Below low normal 1.00-4.80 (K/ul) Final Monos, Abs 03/12/2024 11:45:00 0.43 0.00-1.10 (K/uL) Final Eos, Abs 03/12/2024 11:45:00 0.01 0.00-0.70 (K/uL) Final Basos, Abs 03/12/2024 11:45:00 0.01 0.00-0.20 (K/uL) Final Immature Granulocytes, Number 03/12/2024 11:45:00 0.07 0.00-0.20 (K/uL) Final Performing Location [facility] - [address] [facility] [address]
--- OUTSIDE RECORDS SUMMARY | 2024-03-31 08:13 | External Medical Summary | Summary of Care ---
Author Name Unknown Organization [facility] Address [address] [place] [address] Phone [phone] Care Team Providers Care Aggregate Conveyor Operator Name Role Phone Jewels Greenfield MD Primary Care Provide r Reason for Visit * Reason Comments Dosage Adjustment Via Phone (anticoag Cl inic) Encounter Details Date Type Department Care Team (Latest Contact Info) Description 02/28/2024 6:00 AM EDT Anticoagulation Pharmacy Call Center [phone] [place] [address] [facility] 58 60 [address] [facility] [place] [address] Chronic deep vein thrombosis (DVT) of left popliteal vein (HCC)*; Idiopathic thrombocytopenic purpura (ITP) (HCC); Antiphospholipid antibody syndrome (HCC); Chronic anticoagulation; History of DVT (deep vein thrombosis) Allergies Active Allergy Reactions Criticality Noted Date Comments Codeine Hives,Itching 06/07/2018 Morphine And Related 01/28/2008 Rituximab 02/08/2024 documented as of this encounter (statuses as of 02/28/2024) Medications Medication Sig Dispensed Refills Start Date [...] Strip 3 05/15/2022 Active OneTouch Delica Plus Lzuxlm34I USE TO CHECK GLUCOSE ONCE DAILY 100 Each 3 05/15/2022 Active Ph03nix New MediaTouch Verio Flex System w/Device KitIndications:Hypogly cemia Use [...] as of this encounter (statuses as of 02/28/2024) Active Problems Problem Noted Date Diagnosed Date [...] as of this encounter (statuses as of 02/28/2024) Resolved Problems Problem Noted Date Diagnosed Date [...] as of this encounter (statuses as of 02/28/2024) Immunizations Name Administration Dates Next Due Pneumococcal Conjugate Vacci ne, 20-valent ([id number]) 05/30/2022 Pneumococcal Polysaccharide PPV23 (Pneumovax) 09/24/2012,07/08/2009(Deferred: Patient [...] as of this encounter Progress Notes * Teresita Parsons PHARM Tech - 02/28/2024 11:06 AM EDT Patient Phone Numbers Spoke to [facility] via phone. Unusual Bruising or Bleeding : no Upcoming procedure: no Lovenox dose verified: compliant Labs were drawn ~ 4 hours after dose yes; 1140 AntiXa results, Lovenox dose instructions, and next antiXa date communicated as noted by Pharmacist: Yes Thank you, Teresita Parsons Buffing Machine Operator [employer] [facility] [employer] [phone] 02/28/2024,11:06 AM Electronically signed by Teresita Parsons executive vice president business development at 02/28/2024 11:07 AM EDT * Samaria Tapia RPh - 02/28/2024 10:09 AM EDT Anticoagulation Clinic Current Lovenox Dose: 50mg every 12 hours AntiXa level 0.76 (goal 0.6-1.0) Dose instructions: Lovenox CONTINUE 50mg every 12 hours Repeat antiXa level in 3 weeks on 03/11 with GML. Remind patient that labs must be drawn 4 hours after dose. TIANNA to contact patient with dose instructions as noted. Samaria Tapia Rph, Pharm.D. Clinical Pharmacist [facility] [employer] [phone] 02/28/2024,10:13 AM documented in this encounter Plan of Treatment Upcoming Encounters Date Type Department Care Team (Late st Contact Info) Description 03/04/2024 1:15 PM EDT Office Visit Hematology/Oncology [facility] [place] [address] [place] [phone] Ralph Barron MD [address] [place] [address] 03/05/2024 7:00 AM EDT Laboratory [facility] [address] [place] [address] Mvmg, Gml [facility] Draw [address] [place] [address] 03/12/2024 7:00 AM EDT Laboratory [facility] [address] [place] [address] Mvmg, Gml [facility] Draw [address] [place] [address] 03/19/2024 7:00 AM EDT Laboratory Lab [facility] [address] [place] [address] Mvmg, Gml [facility] Home Draw 2520 [facility] [place] [address] 03/26/2024 7:00 AM EDT Laboratory Lab [facility] [address] [place] [address] Mvmg, Gml Mobile Home Draw 2520 [facility] [place] [address] 04/02/2024 7:00 AM EDT Laboratory [facility] [address] [place] [address] Mvmg, Gml Mobile Home Draw [address] [place] [address] 04/09/2024 7:00 AM EDT Laboratory [facility] [address] [place] [address] Mvmg, Gml Mobile Home Draw [address] [place] [address] 04/16/2024 7:00 AM EDT Laboratory [facility] [address] [employer] [place] [address] Mvmg, Gml Mobile Home Draw 2520 [place] [address] 04/23/2024 7:00 AM EDT Laboratory [facility] 2520 [facility] [place] [address] Mvmg, Gml Mobile Home Draw 2520 [place] [address] 04/30/2024 7:00 AM EDT Laboratory [facility] [address] [place] [address] Mvmg, Gml [facility] Draw 2520 [place] [address] 05/07/2024 7:00 AM EDT Laboratory Lab [facility] 25[address] [facility] [place] [address] Mvmg, Gml [facility] Draw 25[address] [place] [address] 05/14/2024 7:00 AM EDT Laboratory [facility] [address] [place] [address] Mvmg, Gml [facility] Draw [address] [place] [address] 05/21/2024 7:00 AM EDT Laboratory Lab [facility] [address] [place] [address] Mvmg, Gml [facility] Draw 25[address] [place] [address] 05/28/2024 7:00 AM EDT Laboratory Lab [facility] [address] [facility] [place] [address] Mvmg, Gml Mobile Home Draw [address] [place] [address] 06/04/2024 7:00 AM EDT Laboratory Lab [facility] 25[address] [facility] [place] [address] Mvmg, Gml Mobile Home Draw [address] [place] [address] 06/11/2024 7:00 AM EDT Laboratory [facility] [address] [place] [address] Mvmg, Gml [facility] Draw [address] [place] [address] 06/18/2024 7:00 AM EDT Laboratory [facility] [address] [place] [address] Mvmg, Gml [facility] Home Draw [address] [place] [address] 06/25/2024 7:00 AM EDT Laboratory Lab [facility] [address] [employer] [place], [place] [address] Mvmg, Gml [facility] Draw [address] [employer] [place], [place] [address] 08/12/2024 1:20 PM EDT Office Visit Family [address] [phone] Millie Lovell CRNP [address] [place] [address] [place] [address] 02/10/2025 1:40 PM EDT Office Visit [address] [phone] Jewels Greenfield MD [address] [place] [address] [place] [address] Scheduled Procedures Name Priority Associated Diagnoses Date/Ti me COLONOSCOPY FLEXIBLE PROXIMA L DIAGNOSTIC Recall History of colon polyps Special screening for malignant neoplasms, colon Health Maintenance Due Date Last Done Comments Hepatitis B (1 of 3 - 19+ 3-dose series) 1988 Zoster Vaccines (1 of 2) 2019 COLONOSCOPY-ANNUAL AGES 18-100 06/18/2020 06/18/2019, 06/18/2019 Depression Screening 09/09/2021 09/09/2020 COVID-19 Vaccine ( season) 2023 Influenza Vaccine [...] this encounter Medical Devices Implanted Type Area Education Spec Device Identifier Shelf Expiration Date Model / Serial / Lot Henrik 18 Liq Embolic Agent - [id number] Implanted:Qty: 1 on 12/31/2023 by Hesham Martell MD, PhD at [facility] [employer] : NEURO CARE [id number] 01/24/2026 105-7100-06 0 / / [id number] Description:Lot #[id number] documented as of this encounter Visit Diagnoses Diagnosis Chronic deep vein thrombosis (DVT) of left popliteal vein (HCC)- Primary Idiopathic thrombocytopenic purpura (ITP) (HCC) Immune thrombocytopenic purpura Antiphospholipid antibody syndrome (HCC) Primary hypercoagulable state Chronic anticoagulation Long-term (current) use of anticoagulants History of DVT (deep vein thrombosis) Personal [...] Advance Directives occurred with: Patient Care Teams Aggregate Conveyor Operator Relationship Specialty Start Date End Date Jewels Greenfield MD [address] [place] [address] [place] [address] PCP - General Family Medicine 02/18/24 documented as of this encounter
--- OUTSIDE RECORDS SUMMARY | 2024-03-31 08:13 | External Medical Summary ---
Author Name Unknown Address Unknown Organization K09:[facility] [place] [address] Laboratory Report Ordering Provider Test Date Status SHERLYN ROBLES 03/04/2024 13:30:29 Final Observation Date Value Abnormality Reference (Units ) Status WBC, Total 03/04/2024 13:30:29 5.98 4.00-10.8 0 (K/uL) Final RBC 03/04/2024 13:30:29 3.76 3.85-5.15 (M/uL) Final Hemoglobin 03/04/2024 13:30:29 12.1 12.0-15.3 (g/dL) Final HCT 03/04/2024 13:30:29 36.9 36.0-45.2 (%) Final MCV 03/04/2024 13:30:29 98.1 81.5-97.5 (fL) Final MCH 03/04/2024 13:30:29 32.2 27.0-34.0 (pg) Final MCHC 03/04/2024 13:30:29 32.8 32.0-36.0 (g/dL) Final RDW 03/04/2024 13:30:29 17.6 11.5-15.5 (%) Final Platelets 03/04/2024 13:30:29 60 Below low normal 140 -400 (K/uL) Final MPV 03/04/2024 13:30:29 10.2 6.6-11.1 ( fL) Final Performing Location [facility] [place] [address]
--- OUTSIDE RECORDS SUMMARY | 2024-03-31 08:13 | External Medical Summary ---
Author Name Unknown Address Unknown Organization K09:[facility] [place] [address] Laboratory Report Ordering Provider Test Date Status SHERLYN ROBLES 03/04/2024 13:30:29 Final Observation Date Value Abnormality Reference (Units ) Status SYNC LEUKOCYTES IN BLOOD BY AUTOMATED COUNT 03/04/2024 13:30:29 5.98 4.00-10.80 (K/uL) Final Segs 03/04/2024 13:30:29 68.7 40.0-75.0 (%) Final Lymphs % 03/04/2024 13:30:29 19.1 18.0-42.0 (%) Final Monos 03/04/2024 13:30:29 10.0 1.0-11.0 (%) Final Eosinophils 03/04/2024 13:30:29 0.2 0.0-6.0 (%) Final Basos 03/04/2024 13:30:29 2.0 0.0-2.0 (%) Final Absolute Segs 03/04/2024 13:30:29 4.11 1.80-7.70 (K/uL) Final Lymphs, absolute 03/04/2024 13:30:29 1.14 1.00-4.80 (K/ul) Final Monos, Abs 03/04/2024 13:30:29 0.60 0.00-1.10 (K/uL) Final Eos, Abs 03/04/2024 13:30:29 0.01 0.00-0.70 (K/uL) Final Basos, Abs 03/04/2024 13:30:29 0.12 0.00-0.20 (K/uL) Final Performing Location [facility] [place] [address]
--- OUTSIDE RECORDS SUMMARY | 2024-03-31 08:13 | External Medical Summary | Summary of Care ---
Author Name Unknown Organization [facility] Address [address] [place] [address] Phone [phone] Care Team Providers Care Load Dropper Name Role Phone Jewels Greenfield MD Primary Care Provide r Reason for Visit * Reason Comments Outpatient Testing Encounter Details Date Type Department Care Team (Late st Contact Info) Description 03/04/2024 1:50 PM EDT Laboratory Laboratory [facility] [place] [address] [place] [phone] [place], Lab Scenery [address] [place] [address] Arrived Allergies Active Allergy Reactions Criticality Noted [...] Strip 3 05/15/2022 Active OneTouch Delica Plus [id number] USE TO CHECK GLUCOSE ONCE DAILY 100 [...] Next Due Pneumococcal Conjugate Vacci ne, 20-valent (Isgardd59) 05/30/2022 Pneumococcal Polysaccharide PPV23 (Pneumovax) 09/24/2012,07/08/2009(Deferred: Patient [...] [facility] [address] [place] [address] Mvmg, Gml [facility] Draw [address] [place] [address] 03/11/2024 7:05 AM EDT Laboratory [facility] [address] [place] [address] [address] Mvmg, Gml [facility] Draw [address] [place] [address] 03/12/2024 6:00 AM EDT Anticoagulation Pharmacy Call Center 58-60 [facility] [place] [address] [facility] 58 60 [facility] [place] [address] 03/12/2024 7:00 AM EDT Laboratory [facility] [address] [place] [address] Mvmg, Gml [facility] Draw [address] [place] [address] [address] 03/19/2024 7:00 AM EDT Laboratory [facility] [address] [place] [address] [address] Mvmg, Gml [facility] Draw [address] [place], [place] [address] 03/26/2024 7:00 AM EDT Laboratory [facility] [address] [place] [address] [address] Mvmg, Gml [facility] Draw [address] [place] [address] [address] 04/02/2024 7:00 AM EDT Laboratory Lab [facility] [address] [place] [address] Mvmg, Gml [facility] Draw [address] [place] [address] 04/09/2024 7:00 AM EDT Laboratory [facility] [address] [place] [address] Mvmg, Gml [facility] Home Draw [address] [place] [address] 04/16/2024 7:00 AM EDT Laboratory Lab [facility] [address] [place] [address] Mvmg, Gml [facility] Home Draw [address] [place] [address] 04/23/2024 7:00 AM EDT Laboratory Lab [facility] [address] [place] [address] Mvmg, Gml Mobile Home Draw [address] [place] [address] 04/30/2024 7:00 AM EDT Laboratory [facility] [address] [facility] [place] [address] Mvmg, Gml Mobile Home Draw [address] [place] [address] 05/07/2024 7:00 AM EDT Laboratory [facility] [address] [place] [address] Mvmg, Gml Mobile Home Draw [address] [place] [address] 05/14/2024 7:00 AM EDT Laboratory Lab [facility] [address] [facility] [place] [address] Mvmg, Gml Mobile Home Draw [address] [place] [address] 05/21/2024 7:00 AM EDT Laboratory [facility] [address] [place] [address] Mvmg, Gml Mobile Home Draw [address] [place] [address] 05/28/2024 7:00 AM EDT Laboratory [facility] [address] [place], [place] [address] Mvmg, Gml [facility] Draw [address] [place], [place] [address] 06/04/2024 7:00 AM EDT Laboratory Lab [facility] [address] [place], [place] [address] Mvmg, Gml Mobile Home Draw [address] [facility] [place] [address] 06/11/2024 7:00 AM EDT Laboratory Lab [facility] [address] [place] [address] Mvmg, Gml Mobile Home Draw [address] [facility] [place], [place] [address] 06/18/2024 7:00 AM EDT Laboratory Lab [facility] [address] [employer] [place], [place] [address] Mvmg, Gml Mobile Home Draw [address] [facility] [place], [place] [address] 06/20/2024 10:45 AM EDT Office Visit Hematology/Oncology [facility] [place] [address] [facility] [place], [place] [phone] Ralph Barron MD 200 [facility] [place] [address] 06/25/2024 7:00 AM EDT Laboratory Lab [facility] [address] [place] [address] Mvmg, Gml Mobile Home Draw [address] [facility] [place], [place] [address] 08/12/2024 1:20 PM EDT Office Visit Family Medicine [address] [place] [phone] Millie Lovell [address] [place] [address] 02/10/2025 1:40 PM EDT Office Visit Family Medicine [address] [place] [phone] Jewels Greenfield MD [address] [place] [address] [place] [address] Scheduled Procedures Name Priority Associated Diagnoses Date/Ti [...] this encounter Medical Devices Implanted Type Area Card Reader Device Identifier Shelf Expiration Date Model / Serial / Lot Henrik 18 Liq Embolic Agent - [id number] Implanted:Qty: 1 on 12/31/2023 by Hesham Martell MD, PhD at [facility] [employer] : NEURO CARE [id number] 01/24/2026 105-7100-06 0 / / [id number] Description:Lot #[id number] documented as of this encounter Advance Directives [...] Advance Directives occurred with: Patient Care Teams Load Dropper Relationship Specialty Start Date End Date Jewels Greenfield MD [address] [place] [address] [place] [address] PCP - General Family Medicine 02/18/24 documented as of this encounter
--- OUTSIDE RECORDS SUMMARY | 2024-03-31 08:13 | External Medical Summary ---
Author Name Unknown Address Unknown Organization K09:[facility] [place] [address] Laboratory Report Ordering Provider Test Date Status MICKY ROBLESEL 03/04/2024 13:30:29 Final Observation Date Value Abnormality Reference (Units ) Status Nucleated erythrocytes/100 leukocytes [Ratio] in Blood by Automated count 03/04/2024 13:30:29 Final Performing Location [facility] [place] [address]
--- OUTSIDE RECORDS SUMMARY | 2024-03-31 08:13 | External Medical Summary ---
Author Name Unknown Address Unknown Organization K01:[place] [facility] [place] [facility] [place] [address] Laboratory Report Ordering Provider Test Date Status SHERLYN ROBLES 02/27/2024 11:40:00 Final Observation Date Value Abnormality Reference (Units ) Status WBC, Total 02/27/2024 11:40:00 5.34 4.00-10.80 (K/uL) Final RBC 02/27/2024 11:40:00 3.69 3.85-5.15 (M/uL) Final Hemoglobin 02/27/2024 11:40:00 12.1 12.0-15.3 (g/dL) Final HCT 02/27/2024 11:40:00 36.3 36.0-45.2 (%) Final MCV 02/27/2024 11:40:00 98.4 81.5-97.5 (fL) Final MCH 02/27/2024 11:40:00 32.8 27.0-34.0 (pg) Final MCHC 02/27/2024 11:40:00 33.3 32.0-36.0 (g/dL) Final RDW 02/27/2024 11:40:00 17.0 11.5-15.5 (%) Final Platelets 02/27/2024 11:40:00 74 Below low normal 140-400 (K/uL) Final MPV 02/27/2024 11:40:00 11.0 6.6-11.1 (fL) Final Nucleated erythrocytes/100 leukocytes [Ratio] in Blood by Automated count 02/27/2024 11:40:00 0 <=0 (/100 WBCs) Final Performing Location [facility] [place] [address] [place] [address]
--- OUTSIDE RECORDS SUMMARY | 2024-03-31 08:13 | External Medical Summary | Summary of Care ---
Author Name Unknown Organization [facility] Address [address] [place] [address] Phone [phone] Care Team Providers Care Mh Teacher Name Role Phone Jewels Greenfield MD Primary Care Provide r Reason for Visit * Reason Comments Dosage Adjustment Via Phone (anticoag Cl inic) Encounter Details Date Type Department Care Team (Latest Contact Info) Description 03/13/2024 6:00 AM EDT Anticoagulation Pharmacy Call Center [address] [place] [address] [facility] [address] [facility] [place] [place] [address] Chronic deep vein thrombosis (DVT) of left [...] Strip 3 05/15/2022 Active OneTouch Delica Plus [id number] USE TO CHECK GLUCOSE ONCE DAILY 100 Each 3 05/15/2022 Active ChoggerTouch Verio Flex System w/Device KitIndications:Hypogly cemia Use [...] Next Due Pneumococcal Conjugate Vacci ne, 20-valent ([id number]) 05/30/2022 Pneumococcal Polysaccharide PPV23 (Pneumovax) 09/24/2012,07/08/2009(Deferred: Patient [...] as of this encounter Progress Notes * Yousuf Durán competitive shopper - 03/13/2024 11:00 AM EDT Patient Phone Numbers Spoke to [facility] via phone. Unusual Bruising or Bleeding : yes; injection site Upcoming procedure: no Lovenox dose verified: compliant Labs were drawn ~ 4 hours after dose yes; compliant AntiXa results, Lovenox dose instructions, and next antiXa date communicated as noted by Pharmacist: Yes Thank You, Yousuf Durán [facility] Edger Technician II Centralized Clinical Pharmacy Services (Formerly Telepharmacy) 03/13/2024, 11:00 AM * Rianna Howell RPh - 03/13/2024 9:13 AM EDT Anticoagulation Clinic Current Lovenox Dose: Lovenox 50mg every 12 hours AntiXa level 0.56 (goal 0.6-1.0) - drawn at 11:45AM Dose instructions: Continue Lovenox 50mg every 12 hours Repeat antiXa level in 3 weeks on 04/02 with GML. Remind patient that labs must be drawn 4 hours after dose. TIANNA to contact patient with dose instructions as noted. Rianna Howell RPh 03/13/24, 9:13 AM documented in this encounter Plan of Treatment Upcoming Encounters Date Type Department Care Team (Late st Contact Info) Description 03/14/2024 11:00 AM EDT Telemedicine [address] [phone] Jewels Greenfield MD [address] [place] [address] [place] [address] 03/19/2024 7:00 AM EDT Laboratory [facility] [address] [place] [address] [facility], [facility] [address] [place] [address] 03/26/2024 7:00 AM EDT Laboratory [facility] [address] [place] [address] [facility], [facility] [address] [place] [address] 04/02/2024 7:00 AM EDT Laboratory [facility] [address] [place] [address] [address] M[facility], [facility] [address] [place] [address] 04/03/2024 6:00 AM EDT Anticoagulation Pharmacy Call Center WB [address] [facility] [place] [address] [facility] 58 60 [facility] [place] [address] 04/09/2024 7:00 AM EDT Laboratory [facility] [address] [place] [address] [address] M[facility], [facility] [address] [place] [address] 04/16/2024 7:00 AM EDT Laboratory [facility] [address] [place] [address] [address] Mvmg, [facility] [address] [address] 04/23/2024 7:00 AM EDT Laboratory [facility] [address] [place] [address] [address] M[facility], [facility] [address] [place] [address] 04/30/2024 7:00 AM EDT Laboratory [facility] [address] [place] [address] M[facility], [facility] [address]20 [place] [address] 05/07/2024 7:00 AM EDT Laboratory [facility] [address] [employer] [place] [address] Mvmg, [facility] [address] [place] [employer] [place] [address] 05/14/2024 7:00 AM EDT Laboratory [facility] [address] [place] [address] Mvmg, [facility] [address] [place] [address] 05/21/2024 7:00 AM EDT Laboratory [facility] [address] [employer] [place] [address] Mvmg, [facility] [address] [place] [address] 05/28/2024 7:00 AM EDT Laboratory [facility] [address] [place] [address] Mvmg, [facility] [address] [place] [employer] [place] [address] 06/04/2024 7:00 AM EDT Laboratory [facility] [address] [employer] [place] [address] Mvmg, [facility] [address] [place] [employer] [place] [address] 06/11/2024 7:00 AM EDT Laboratory [facility] [address] [facility] [place] [address] Mvmg, [facility] [address] [place] [address] [place] [address] 06/18/2024 7:00 AM EDT Laboratory [facility] [address] [employer] [place] [address] Mv[facility], [facility] [address] [place] [address] 06/20/2024 10:45 AM EDT Office Visit Hematology/Oncology [facility] [place] [address] [facility] [place] [phone] Ralph Barron MD [address] [facility] [place] [address] 06/25/2024 7:00 AM EDT Laboratory [facility] [address] [employer] [place] [address] M[facility], [facility] 2520 [facility] [place] [address] 08/12/2024 1:20 PM EDT Office Visit Family Medicine [address] [phone] Millie Lovell CRNP [address] [place] [address] [place] [address] 02/10/2025 1:40 PM EDT Office Visit Family Medicine [address] [phone] Jewels Greenfield MD [address] [place] [address] [place] [address] Scheduled Procedures Name Priority Associated Diagnoses Date/Ti [...] this encounter Medical Devices Implanted Type Area Embedded Engineer Device Identifier Shelf Expiration Date Model / Serial / Lot Hom[place] 18 Liq Embolic Agent - [id number] Implanted:Qty: 1 on 12/31/2023 by Hesham Martell MD, PhD at [facility] [employer] : NEURO CARE [id number] 01/24/2026 105-7100-06 0 / / [id number] Description:Lot #[id number] documented as of this encounter Visit Diagnoses [...] Advance Directives occurred with: Patient Care Teams Mh Teacher Relationship Specialty Start Date End Date Jewels Greenfield MD [address] [place] [address] [place] [address] PCP - General Family Medicine 02/18/24 documented as of this encounter
--- OUTSIDE RECORDS SUMMARY | 2024-03-31 08:13 | External Medical Summary | Summary of Care ---
Author Name Unknown Organization [facility] Address [address] [place] [address] Phone [phone] Care Team Providers Care Usability Engineer Name Role Phone Jewels Greenfield MD Primary Care Provide r Reason for Visit * Reason Onset Date Comments Test Results Lab 02/28/2024 Encounter Details Date Type Department Care Team ([facility] st Contact Info) Description 02/28/2024 Telephone Hematology/Oncology [facility] [place] [address] [facility] [place] [phone] Ralph [facility]ron MD [facility] [address] Test Results Lab Allergies Active Allergy Reactions Criticality Noted Date [...] Strip 3 05/15/2022 Active OneTouch Delica Plus [id number] USE TO CHECK GLUCOSE ONCE DAILY 100 [...] Next Due Pneumococcal Conjugate Vacci ne, 20-valent ([id number]) 05/30/2022 Pneumococcal Polysaccharide PPV23 (Pneumovax) 09/24/2012,07/08/2009(Deferred: Patient [...] encounter Miscellaneous Notes * Telephone Encounter - Juni Zelaya, RN - 02/28/2024 8:[address] Barron reviewed patients labs, ok to continue to taper prednisone to 20mg daily. Sent MyG. documented in this encounter Plan of Treatment Upcoming Encounters Date Type Department Care Team (Late st Contact Info) Description 03/04/2024 1:15 PM EDT Office Visit Hematology/Oncology [facility] [address] [place] [address] [place] [phone] Ralph Braron MD 200 [facility] [place] [address] 03/05/2024 7:00 AM EDT Laboratory [facility] [address] [employer] [place] [address] M[facility], [facility] [address] [employer] [place] [address] 03/06/2024 6:00 AM EDT Anticoagulation Pharmacy Call Center WB [address] [facility] [place] [address] [facility] 60 [facility] [place] [address] 03/12/2024 7:00 AM EDT Laboratory [facility] [address] [employer] [place] [address] M[facility], [facility] [address] [employer] [place] [address] 03/19/2024 7:00 AM EDT Laboratory [facility] [address] [place] [address] M[facility], [facility] [address] [place] [address] 03/26/2024 7:00 AM EDT Laboratory [facility] [address] [place] [address] Mvmg, [facility] [address]20 [facility] [place] [address] 04/02/2024 7:00 AM EDT Laboratory [facility] [address] [place] [address] Mvmg, [facility] [address]20 [place] [address] 04/09/2024 7:00 AM EDT Laboratory [facility] [address] [facility] [place] [address] Mvmg, [facility] [address] [place] [address] 04/16/2024 7:00 AM EDT Laboratory [facility] [address] [place] [address] Mvmg, [facility] [address] [place] [address] 04/23/2024 7:00 AM EDT Laboratory [facility] [address] [place] [address] Mvmg, [facility] [address] [facility] [place] [address] 04/30/2024 7:00 AM EDT Laboratory [facility] [address] [place] [address] Mvmg, [facility] [address] [place] [address] 05/07/2024 7:00 AM EDT Laboratory [facility] [address] [facility] [place] [address] Mvmg, [facility] [address] [facility] [place] [address] 05/14/2024 7:00 AM EDT Laboratory [facility] [address] [place] [address] Mvmg, [facility] [address] [place] [address] 05/21/2024 7:00 AM EDT Laboratory [facility] [address] [place] [address] Mvmg, [facility] [address] [facility] [place] [address] 05/28/2024 7:00 AM EDT Laboratory [facility] [address] [place] [address] Mvmg, [facility] [address] [facility] [place] [address] 06/04/2024 7:00 AM EDT Laboratory [facility] [address] [place] [address] Mvmg, [facility] [address] [facility] [place] [address] 06/11/2024 7:00 AM EDT Laboratory [facility] [address] [place] [address] Mvmg, [facility] [address] [place] [address] 06/18/2024 7:00 AM EDT Laboratory [facility] [address] [place] [address] Mvmg, [facility] [address] [facility] [place] [address] 06/25/2024 7:00 AM EDT Laboratory [facility] [address] [place] [address] Mv[facility], [facility] [address] [place] [address] 08/12/2024 1:20 PM EDT Office Visit Family Medicine [address] [place] [phone] Millie Lovell CRNP [address] [place] [address] [place] [address] 02/10/2025 1:40 PM EDT Office Visit Family Medicine [address] [place] [phone] Jewels Greenfield MD [address] [place] [address] [place] [address] Scheduled Procedures Name Priority Associated Diagnoses Date/Ti me COLONOSCOPY FLEXIBLE PROXIMA L DIAGNOSTIC Recall History of colon polyps Special screening for malignant neoplasms, colon Health Maintenance Due Date Last Done Comments Hepatitis B (1 of 3 - 19+ 3-dose series) 1988 Zoster Vaccines (1 of 2) 2019 COLONOSCOPY-ANNUAL AGES 18-100 06/18/2020 06/18/2019, 06/18/2019 Depression Screening 09/09/2021 09/09/2020 COVID-19 Vaccine ( - season) 2023 Influenza Vaccine (FLU shot) (Season [...] this encounter Medical Devices Implanted Type Area Basket Weaver Device Identifier Shelf Expiration Date Model / Serial / Lot Henrik 18 Liq Embolic Agent - [id number] Implanted:Qty: 1 on 12/31/2023 by Hesham Martell MD, PhD at [facility] [employer] : NEURO CARE [id number] 01/24/2026 105-7100-06 0 / / [id number] Description:Lot #[id number] documented as of this encounter Advance Directives [...] Advance Directives occurred with: Patient Care Teams Usability Engineer Relationship Specialty Start Date End Date Jewels Greenfield MD [address] [place] [address] [place] [address] PCP - General Family Medicine 02/18/24 documented as of this encounter
--- OUTSIDE RECORDS SUMMARY | 2024-03-31 08:13 | External Medical Summary ---
Author Name Unknown Address Unknown Organization K01:LABORATORY [facility] [place] [address] [facility] [address] Laboratory Report Ordering Provider Test Date Status SHERLYN ROBLES 03/12/2024 11:45:00 Final Observation Date Value Abnormality Reference (Units ) Status WBC, Total 03/12/2024 11:45:00 4.46 4.00-10.80 (K/uL) Final RBC 03/12/2024 11:45:00 3.41 3.85-5.15 (M/uL) Final Hemoglobin 03/12/2024 11:45:00 11.3 Below low normal 12.0-15.3 (g/dL) Final HCT 03/12/2024 11:45:00 33.6 Below low normal 36.0-45.2 (%) Final MCV 03/12/2024 11:45:00 98.5 81.5-97.5 (fL) Final MCH 03/12/2024 11:45:00 33.1 27.0-34.0 (pg) Final MCHC 03/12/2024 11:45:00 33.6 32.0-36.0 (g/dL) Final RDW 03/12/2024 11:45:00 17.4 11.5-15.5 (%) Final Platelets 03/12/2024 11:45:00 56 Below low normal 140-400 (K/uL) Final MPV 03/12/2024 11:45:00 11.4 6.6-11.1 (fL) Final Nucleated erythrocytes/100 leukocytes [Ratio] in Blood by Automated count 03/12/2024 11:45:00 0 <=0 (/100 WBCs) Final Performing Location LABORATORY [facility] [place] - [address] [place] [address]
--- OUTSIDE RECORDS SUMMARY | 2024-03-31 08:13 | External Medical Summary ---
Author Name Unknown Address Unknown Organization K01:[place] [facility] [place] [address] [facility] [address] Laboratory Report Ordering Provider Test Date Status DEYSI RIVERA 03/12/2024 11:45:00 Final Observation Date Value Abnormality Reference (Units ) Status LMW Heparin [Units/volume] in Platelet poor plasma by Chromogenic method 03/12/2024 11:45:00 0.56 Above high normal <0.10 (IU/mL) Final Low molecular weight heparin 's therapeutic range is 0.6 - 1.00 I.U./mL. Performing Location [place] [facility] [place] [address] [facility] [address]
--- OUTSIDE RECORDS SUMMARY | 2024-03-31 08:13 | External Medical Summary | Summary of Care ---
Author Name Unknown Organization [facility] Address [address] [place] [address] Phone [phone] Care Team Providers Care Automatic Folder Seamer Name Role Phone Jewels Greenfeild MD Primary Care Provide r Encounter Details Date Type Department Care Team (Late st Contact Info) Description 03/11/2024 Result Scan Unspecified Department <No scans attached> Allergies Active Allergy Reactions Criticality Noted Date Comments Codeine Hives,Itching 06/07/2018 Morphine And Related 01/28/2008 Rituximab 02/08/2024 documented as of this encounter (statuses as of 03/12/2024) Medications Medication Sig Dispensed Refills Start Date [...] Strip 3 05/15/2022 Active OneTouch Delica Plus [id number] USE TO CHECK GLUCOSE ONCE DAILY 100 [...] as of this encounter (statuses as of 03/12/2024) Active Problems Problem Noted Date Diagnosed Date [...] as of this encounter (statuses as of 03/12/2024) Resolved Problems Problem Noted Date Diagnosed Date [...] as of this encounter (statuses as of 03/12/2024) Immunizations Name Administration Dates Next Due Pneumococcal Conjugate Vacci ne, 20-valent ([id number]) 05/30/2022 Pneumococcal Polysaccharide PPV23 (Pneumovax) 09/24/2012,07/08/2009(Deferred: Patient [...] Team (Late st Contact Info) Description 03/13/2024 6:00 AM EDT Anticoagulation Pharmacy Call Center WB [address] [place] [address] [facility], [facility] 58 60 [facility] [place] [address] 03/14/2024 11:00 AM EDT Telemedicine [address] [place] [phone] Jewels Greenfield MD [address] [place] [address] [place] [address] 03/19/2024 7:00 AM EDT Laboratory Lab [facility] [email or web address] [place] [address] M[facility], [facility] [email or web address] [place], [place] [address] 03/26/2024 7:00 AM EDT Laboratory [facility] [email or web address] [place], [place] [address] Mvmg, [facility] [email or web address] [place], [place] [address] 04/02/2024 7:00 AM EDT Laboratory [facility] [email or web address] [place], [place] [address] Mvmg, [facility] [email or web address] [place], [place] [address] 04/09/2024 7:00 AM EDT Laboratory [facility] [email or web address] [place], [place] [address] Mvmg, [facility] [email or web address] [place], [place] [address] 04/16/2024 7:00 AM EDT Laboratory [facility] [email or web address] [place], [place] [address] Mvmg, [facility] [email or web address] [place], [place] [address] 04/23/2024 7:00 AM EDT Laboratory [facility] [address] [facility] [place] [address] Mvmg, Gml [facility] Draw [address] [facility] [place] [address] 04/30/2024 7:00 AM EDT Laboratory Lab [facility] [address] [place] [address] Mvmg, Gml [facility] Draw [address] [place] [address] 05/07/2024 7:00 AM EDT Laboratory Lab [facility] [address] [place] [address] Mvmg, Gml [facility] Draw [address] [place] [address] 05/14/2024 7:00 AM EDT Laboratory Lab [facility] [address] [facility] [place] [address] Mvmg, G[facility] [address] [place] [address] 05/21/2024 7:00 AM EDT Laboratory [facility] [address] [facility] [place] [address] Mvmg, [facility] [address] [place] [address] 05/28/2024 7:00 AM EDT Laboratory [facility] [address] [place] [address] Mvmg, Gml [facility] [address] [place] [address] 06/04/2024 7:00 AM EDT Laboratory [facility] [address] [facility] [place] [address] Mvmg, [facility] [address] [place] [address] 06/11/2024 7:00 AM EDT Laboratory [facility] [address] [place] [address] Mvmg, Gml [facility] Draw [address] [email or web address] [place], [place] [address] 06/18/2024 7:00 AM EDT Laboratory [facility] [email or web address] [place] [address] Mvmg, [facility] [email or web address] [place] [address] 06/20/2024 10:45 AM EDT Office Visit Hematology/Oncology [facility] [place] 200 [facility] [place] [address] Ralph Barron MD 200 [facility] [place] [address] 06/25/2024 7:00 AM EDT Laboratory Lab [facility]bot[facility] [email or web address] [place] [address] Mvmg, Gml [facility] [email or web address] [place] [address] 08/12/2024 1:20 PM EDT Office Visit Family Medicine [address] [phone] Millie Lovell CRNP [address] [place] [address] [place] [address] 02/10/2025 1:40 PM EDT Office Visit Family Medicine [address] [phone] Jewels Greenfield MD [address] [place] [address] [place] [address] Scheduled Procedures Name Priority Associated Diagnoses Date/Ti [...] this encounter Medical Devices Implanted Type Area Tug Boat Engineer Device Identifier Shelf Expiration Date Model / Serial / Lot Henrik 18 Liq Embolic Agent - [id number] Implanted:Qty: 1 on 12/31/2023 by Hesham Martell MD, PhD at [facility] [employer] : NEURO CARE [id number] 01/24/2026 105-7100-06 0 / / [id number] Description:Lot #[id number] documented as of this encounter Procedures Procedure Name Priority Date/Time Associated Diagnosis Comments RADIOLOGY SCANNED RESULT 03/11/2024 documented in this encounter Results * RADIOLOGY SCANNED RESULT (03/11/2024) 03/11/2024 No Physician Data Unknown DIAGNOSTIC RAD IOLOGY SERVICES documented in this encounter Advance Directives Latest [...] Directives occurred with: Patient Care Teams Automatic Folder Seamer Relationship Specialty Start Date End Date Jewels Greenfield MD [address] [place] [address] [place] [address] PCP - General Family Medicine 02/18/24 documented as of this encounter
--- OUTSIDE RECORDS SUMMARY | 2024-03-31 08:14 | External Medical Summary | Summary of Care ---
Author Name Unknown Organization [facility] Address [address] [place] [address] Phone [phone] Care Team Providers Care Spanish Interpreter/Translator Name Role Phone Jewels Greenfield MD Primary Care Provide r Reason for Visit * Reason Onset Date Comments Advice 02/25/2024 Encounter Details Date Type Department Care Team (Late st Contact Info) Description 02/25/2024 Refill Hematology/Oncology [facility] [place] [place] [address] [facility] [place] [address] Travis Barron MD [address] [facility] [place] [address] Acute ITP (HCC)* Allergies Active Allergy Reactions Criticality Noted Date Comments Codeine Hives,Itching 06/07/2018 Morphine And Related 01/28/2008 Rituximab 02/08/2024 documented as of this encounter (statuses as of 02/26/2024) Medications Medication Sig Dispensed Refills Start Date [...] Strip 3 2 Active OneTouch Delica Plus [id number] USE TO CHECK GLUCOSE ONCE DAILY 100 [...] Sodium 100 MG/ML Injection Solution Prefilled Syringe (Lovenox)Indications: Antiphospholipid antibody syndrome (HCC) Inject 50 mg under the skin in the morning and 50 mg before bedtime. 100 mL 0 4 Active predniSONE 20 MG Oral Tablet (Deltasone)Indication s:Acute ITP (HCC) Take 1 and 1/2 tablets by mouth x6 days, 1 tablet x1 week, then 1/2 tablet x1 week 14 Tablet 0 4 03/17/20 24 Active predniSONE 20 MG Oral Tablet (Deltasone) Take 3 Tablets by mouth in the morning. 90 Tablet 0 4 02/25/20 24 Discontinu ed(Refill) documented as of this encounter (statuses as of 02/26/2024) Active Problems Problem Noted Date Diagnosed Date [...] as of this encounter (statuses as of 02/26/2024) Resolved Problems Problem Noted Date Diagnosed Date [...] as of this encounter (statuses as of 02/26/2024) Immunizations Name Administration Dates Next Due Pneumococcal Conjugate Vacci ne, 20-valent (Lzazzed72) 05/30/2022 Pneumococcal Polysaccharide PPV23 (Pneumovax) 09/24/2012,07/08/2009(Deferred: Patient [...] encounter Miscellaneous Notes * Telephone Encounter - Travis Barron MD - 02/26/2024 6:29 AM EDT E-prescribed Travis Barron MD Hem/Onc * Telephone Encounter - Travis Barron MD - 02/26/2024 6:29 AM EDTSigned Prescriptions: Disp Refills predniSONE 20 MG Oral Tablet (Deltasone) 14 Tab*0 Sig: Take 1 and 1/2 tablets by mouth x6 days, 1 tablet x1 week, then 1/2 tablet x1 week Authorizing Provider: TRAVIS BARRON * Telephone Encounter - Juni Zelaya RN - 02/25/2024 2:[address] Barron - Pended Prednisone 20mg for 14 tablets ( she has 9 left of her current script which should get her through the rest of 30mg) -- lab work recheck is 02/26- plan to decrease to 20mg this weekif CBC is ok. Please also advise regarding the plan for Keppra dosing. * Telephone Encounter - Kayley Brooke [facility] - 02/25/2024 1:35 PM EDT Pt calling requesting refills on prednisone - Dr Barron advised pt to wean off Pt reports current dose of prednisone 20 m and 1/2 tablets daily Only has nine tablets left Pt also requesting clarification from Dr. Barron on duration of therapy for Keppra - Does not currently follow neurologist for epilepsy Per TE (02/19/24): "Dr. Barron- pt to decrease prednisone by 10mg each week if labs are stable. Labs completed 02/12, please advise. Thank you. " Pt started 30 mg dose today. Pended order for completion of pred taper as noted above. Please advise of duration of therapy for keppra as well. Please route encounter back to me for follow up. Pending Prescriptions: Disp Refills predniSONE 20 MG Oral Tablet (Deltasone) 14 Tab*0 Sig: Take 1 and 1/2 tablets by mouth x6 days, 1 tablet x1 week, then 1/2 tablet x1 week Thank you, Kayley Brooke PharmD Clinical Pharmacist [facility] ([facility]) 02/25/24 1:45 PM [phone] * Telephone Encounter - Иван De La Cruz PHARM Tech - 02/25/2024 1:28 PM EDT Pt calling with questions regarding her predniSONE 20 MG Oral Tablet (Deltasone) . [facility] questions. Thank you, Иван De La Cruz Mine Production Engineer I [facility] ([facility])(formerly Telepharmacy) 02/25/2024,1:30 PM documented in this encounter Plan of Treatment Upcoming Encounters Date Type Department Care Team (Late st Contact Info) Description 02/27/2024 7:00 AM EDT Laboratory Lab [facility] [address] [place] [address] Mvmg, Gml [facility] Draw [address] [place] [address] 03/04/2024 1:15 PM EDT Office Visit Hematology/Oncology [facility] [place] [address], [place] [phone] Travis Barron MD [address] [place] [address] 03/05/2024 7:00 AM EDT Laboratory Lab Mobile Phlebotomy [facility] [address], [place] [address] Mvmg, Gml Mobile Home Draw [address], [place] [address] 03/06/2024 6:00 AM EDT Anticoagulation Pharmacy Call Center WB [address] [facility] [place] [address] Ccps, [facility] 58 60 [facility] [place] [address] 03/12/2024 7:00 AM EDT Laboratory Lab Mobile Phlebotomy [facility] [address], [place] [address] Mvmg, Gml Mobile Home Draw [address], [place] [address] 03/19/2024 7:00 AM EDT Laboratory Lab Mobile Phlebotomy [facility] [address], [place] [address] Mvmg, Gml Mobile Home Draw [address], [place] [address] 03/26/2024 7:00 AM EDT Laboratory Lab [facility]lebot[facility] [address] [place] [address] Mvmg, Gml Mobile Home Draw [address] [place] [address] 04/02/2024 7:00 AM EDT Laboratory Lab Mobile Phlebotomy [facility] [address] [place] [address] Mvmg, Gml Mobile Home Draw [address], [place] [address] 04/09/2024 7:00 AM EDT Laboratory Lab Mobile Phlebotomy [facility] [address] [place] [address] Mvmg, Gml Mobile Home Draw [address] [place] [address] 04/16/2024 7:00 AM EDT Laboratory Lab Mobile Phlebotomy [facility] [address] [place] [address] Mvmg, Gml Mobile Home Draw [address] [place] [address] 04/23/2024 7:00 AM EDT Laboratory Lab Mobile Phlebotomy [facility] [address] [place] [address] Mvmg, Gml Mobile Home Draw [address] [place] [address] 04/30/2024 7:00 AM EDT Laboratory Lab Mobile Phlebotomy [facility] [address] [place] [address] Mvmg, Gml Mobile Home Draw [address] [place] [address] 05/07/2024 7:00 AM EDT Laboratory Lab Mobile Phlebotomy [facility] [address] [place] [address] Mvmg, Gml Mobile Home Draw [address] [place] [address] 05/14/2024 7:00 AM EDT Laboratory Lab Mobile Phlebotomy [facility] [address] [place] [address] Mvmg, Gml Mobile Home Draw [address] [place] [address] 05/21/2024 7:00 AM EDT Laboratory Lab Mobile Phlebotomy [facility] [address] [place] [address] Mvmg, Gml Mobile Home Draw [address] [place] [address] 05/28/2024 7:00 AM EDT Laboratory Lab Mobile Phlebotomy [facility] [address] [place] [address] Mvmg, Gml Mobile Home Draw [address] [place], [place] [address] 06/04/2024 7:00 AM EDT Laboratory Lab Mobile Phlebotomy [facility] [address] [place] [address] Mvmg, Gml Mobile Home Draw [address] [place] [address] 06/11/2024 7:00 AM EDT Laboratory Lab Mobile Phlebotomy [facility] [address] [place] [address] Mvmg, Gml Mobile Home Draw [address] [place] [address] 06/18/2024 7:00 AM EDT Laboratory Lab Mobile Phlebotomy [facility] [address] [place] [address] Mvmg, Gml Mobile Home Draw [address] [place] [address] 06/25/2024 7:00 AM EDT Laboratory Lab Mobile Phlebotomy [facility] [address] [place] [address] Mvmg, Gml Mobile Home Draw [address] [place] [address] 08/12/2024 1:20 PM EDT Office Visit [address] [phone] Millie Lovell CRNP [address] [place] [address] [place] [address] 02/10/2025 1:40 PM EDT Office Visit [address] [phone] Jewels Greenfield MD [address] [place] [address] [place] [address] Scheduled Procedures Name Priority Associated Diagnoses Date/Ti [...] 11/05, 10/04/2023, Additional history exists Diabetes Screening 02/19/2027 02/20/2024, 0 02/13/2024, 02/01/2024, Additional history exists Lipid Panel 10/04/2028 10/04/2023, [...] this encounter Medical Devices Implanted Type Area Fisher Crab Device Identifier Shelf Expiration Date Model / Serial / Lot Henrik 18 Liq Embolic Agent - [id number] Implanted:Qty: 1 on 12/31/2023 by Hesham Martell MD, PhD at [facility] [employer] : NEURO CARE [id number] 01/24/2026 105-7100-06 0 / / [id number] Description:Lot #[id number] documented as of this encounter Visit Diagnoses Diagnosis 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
--- OUTSIDE RECORDS SUMMARY | 2024-03-31 08:14 | External Medical Summary ---
Author Name Unknown Address Unknown Organization K01:[facility] [place] [address] [facility] [address] Laboratory Report Ordering Provider Test Date Status DEYSI RIVERA 02/27/2024 11:40:00 Final Observation Date Value Abnormality Reference (Units ) Status LMW Heparin [Units/volume] in Platelet poor plasma by Chromogenic method 02/27/2024 11:40:00 0.76 Above high normal <0.10 (IU/mL) Final Low molecular weight heparin 's therapeutic range is 0.6 - 1.00 I.U./mL. Performing Location [facility] [place] [address] [facility] [address]
--- OUTSIDE RECORDS SUMMARY | 2024-03-31 08:14 | External Medical Summary | Summary of Care ---
Author Name Unknown Organization [facility] Address [address] [place] [address] Phone [phone] Care Team Providers Care Flatwork Tier Name Role Phone Jewels Greenfield MD Primary Care Provide r Reason for Visit * Reason Onset Date Comments Advice 02/25/2024 Encounter Details Date Type Department Care Team (Late st Contact Info) Description 02/25/2024 [facility] [place] [address] [facility] [place] [address] Travis Barron MD [address] [facility] [place] [address] Acute ITP (HCC)* Allergies Active Allergy Reactions [...] Strip 3 2 Active OneTouch Delica Plus [id number] USE TO CHECK GLUCOSE ONCE DAILY 100 [...] Next Due Pneumococcal Conjugate Vacci ne, 20-valent (Epofcas26) 05/30/2022 Pneumococcal Polysaccharide PPV23 (Pneumovax) 09/24/2012,07/08/2009(Deferred: Patient [...] Encounter - Travis Barron MD - 02/26/2024 8:24 AM EDT - she should continue Keppra to prevent seizure. Will talk to her when she comes for the clinic visit with me on 03/04/2024. * Telephone Encounter - Angela Gaines LPN - 02/26/2024 7:[address] Barron: Pt also requesting clarification from Dr. Barron on duration of therapy for Keppra - Does not currently follow neurologist for epilepsy * Telephone Encounter - Travis Barron MD [...] dosing. * Telephone Encounter - Kayley Brooke RP - 02/25/2024 1:35 PM EDT Pt calling [...] 1/2 tablet x1 week Thank you, Kayley Brooke, Blanca Clinical Pharmacist [facility] ([facility]) 02/25/24 1:45 PM [phone] * Telephone Encounter - Иван De La Cruz, oracle software engineer - 02/25/2024 1:28 PM EDT Pt calling with questions regarding her predniSONE 20 MG Oral Tablet (Deltasone) . Consulted [facility] toanswer Pt's questions. Thank you, Иван De La Cruz Creative Services Designer I [facility] ([facility])(formerly Telepharmacy) 02/25/2024,1:30 PM documented in this encounter Plan of Treatment Upcoming Encounters Date Type Department Care Team (Late st Contact Info) Description 02/27/2024 7:00 AM EDT Laboratory Lab Mobile Phlebotomy [facility] [email or web address] [place] [address] Mvmg, Gml Mobile Home Draw [email or web address] [place] [address] 03/04/2024 1:15 PM EDT Office Visit Hematology/Oncology [employer] [address] [place] [phone] Travis Barron MD [address] [facility] [place] [address] 03/05/2024 7:00 AM EDT Laboratory Lab Mobile Phlebotomy [facility] [email or web address] [place] [address] Mvmg, Gml Mobile Home Draw [email or web address] [place] [address] 03/06/2024 6:00 AM EDT Anticoagulation Pharmacy Call Center WB [address] [facility] [place] [address] [facility] 58 60 [facility] [place] [address] 03/12/2024 7:00 AM EDT Laboratory Lab Mobile Phlebotomy [facility] [email or web address] [place] [address] Mvmg, Gml Mobile Home Draw [email or web address] [place] [address] 03/19/2024 7:00 AM EDT Laboratory Lab Mobile Phlebotomy [facility] [address] [email or web address] [address] Mvmg, Gml Mobile Home Draw [address] [facility] [place] [address] 03/26/2024 7:00 AM EDT Laboratory Lab Mobile Phlebotomy [facility] [address] [facility] [place] [address] Mvmg, Gml Mobile Home Draw [address] [facility] [place] [address] 04/02/2024 7:00 AM EDT Laboratory Lab Mobile Phlebotomy [facility] [address] [place] [address] Mvmg, Gml Mobile Home Draw [address] [facility] [place] [address] 04/09/2024 7:00 AM EDT Laboratory Lab Mobile Phlebotomy [facility] [address] [facility] [place] [address] Mvmg, Gml Mobile Home Draw [address] [facility] [place] [address] 04/16/2024 7:00 AM EDT Laboratory Lab Mobile Phlebotomy [facility] [address] [facility] [place] [address] Mvmg, Gml Mobile Home Draw [address] [facility] [place] [address] 04/23/2024 7:00 AM EDT Laboratory Lab Mobile Phlebotomy [facility] [address] [facility] [place] [address] Mvmg, Gml Mobile Home Draw [address] [place] [address] 04/30/2024 7:00 AM EDT Laboratory Lab Mobile Phlebotomy [facility] [address] [facility] [place] [address] Mvmg, Gml Mobile Home Draw [address] [facility] [place] [address] 05/07/2024 7:00 AM EDT Laboratory Lab Mobile Phlebotomy [facility] [address] [facility] [place] [address] Mvmg, Gml Mobile Home Draw [address] [facility] [place] [address] 05/14/2024 7:00 AM EDT Laboratory Lab Mobile Phlebotomy [facility] [address] [facility] [place] [address] Mvmg, Gml Mobile Home Draw [address] [facility] [place] [address] 05/21/2024 7:00 AM EDT Laboratory Lab Mobile Phlebotomy [facility] [address] [place] [address] Mvmg, Gml Mobile Home Draw [address] [place] [address] 05/28/2024 7:00 AM EDT Laboratory Lab Mobile Phlebotomy [facility] [address] [employer] [address] [facility] [place] [address] Mvmg, Gml Mobile Home Draw [address] [facility] [place] [address] 06/04/2024 7:00 AM EDT Laboratory Lab Mobile Phlebotomy [facility] [address] [email or web address] [address] Mvmg, Gml Mobile Home Draw [address] [place] [address] 06/11/2024 7:00 AM EDT Laboratory Lab Mobile Phlebotomy [facility] [address] [employer] [address] [place] [address] Mvmg, Gml Mobile Home Draw [address] [employer] [address] [place] [address] 06/18/2024 7:00 AM EDT Laboratory Lab Mobile Phlebotomy [facility] [address] [email or web address] [address] Mvmg, Gml Mobile Home Draw [address] [facility] [place] [address] 06/25/2024 7:00 AM EDT Laboratory Lab Mobile Phlebotomy [facility] [address] [place] [address] Mvmg, Gml Mobile Home Draw [address] [employer] [address] [place] [address] 08/12/2024 1:20 PM EDT Office Visit [address] [place] [phone] Millie Lovell CRNP [address] [place] [address] [place] [address] 02/10/2025 1:40 PM EDT Office Visit [address] [place] [phone] Jewels Greenfield MD [address] [place] [address] [place] [address] Scheduled Procedures Name Priority Associated Diagnoses Date/Ti me COLONOSCOPY FLEXIBLE PROXIMA L DIAGNOSTIC Recall History of colon polyps Special screening for malignant neoplasms, colon Health Maintenance Due Date Last Done Comments Hepatitis B (1 of 3 - 19+ 3-dose series) 1988 Zoster Vaccines (1 of 2) 2019 COLONOSCOPY-ANNUAL AGES 18-100 06/18/2020 06/18/2019, 06/18/2019 Depression Screening 09/09/2021 09/09/2020 COVID-19 Vaccine ( - 2022- season) 2023 [...] this encounter Medical Devices Implanted Type Area Automation Control Integrator Device Identifier Shelf Expiration Date Model / Serial / Lot Henrik 18 Liq Embolic Agent - [id number] Implanted:Qty: 1 on 12/31/2023 by Hesham Martell MD, PhD at [facility] [employer] : NEURO CARE [id number] 01/24/2026 105-7100-06 0 / / [id number] Description:Lot #[id number] documented as of this encounter Visit Diagnoses [...] Advance Directives occurred with: Patient Care Teams Flatwork Tier Relationship Specialty Start Date End Date Jewels Greenfield MD [address] [place] [address] [place] [address] PCP - General Family Medicine 02/18/24 documented as of this encounter
--- OUTSIDE RECORDS SUMMARY | 2024-03-31 08:14 | External Medical Summary | Summary of Care ---
Author Name Unknown Organization [facility] Address [address] [place] [address] Phone [phone] Care Team Providers Care Respiratory Care Instructor Name Role Phone Unavailable Primary Care Provider Unavailabl e Reason for Visit * Episode Based Medications (Routine) - Closed Specialty Diagnoses / Procedures Referred By Contac t Referred To Contact Diagnoses Acute ITP (HCC) Idiopathic thrombocytopenic purpura (ITP) (HCC) Procedures TN INJECTION, RITUXIMAB-PVVR, BIOSIMILAR, (RUXIENCE), 10 MG Ralph Barron MD [address] [place] [address] Anc Hem/Onc [facility] [address] [place] [address] Referral ID Status Reason Start Date Expiration Date Visits Re quested Visits Authorized [id number] Closed 12/19/2023 03/18/2024 4 4 Encounter Details Date Type Department Care Team (Latest Contact Info) Description 01/23/2024 10:30 AM EDT Hem/Onc Treatment Hematology Oncology [place] [address] [place], [place] [id number] [place], [facility] 10 Hem/Onc [address] [place] [address] [phone] Acute ITP (HCC)*; Idiopathic thrombocytopenic purpura (ITP) (HCC); Encounter for antineoplastic chemotherapy [Z51.11] Allergies Active Allergy Reactions Criticality Noted Date [...] Strip 3 2 Active OneTouch Delica Plus [id number] USE TO CHECK GLUCOSE ONCE DAILY 100 Each 3 2 Active Spare BackupTouch Verio Flex System w/Device KitIndications: Hypoglycemia Use as directed . 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 60 Tablet 5 4 Active Sennosides-Docu sate Sodium 8.6-50 MG Oral Tablet (Senokot-S) Take 1 Tablet by mouth daily as needed for Constipation. 15 Tablet 0 4 Active predniSONE 20 MG Oral Tablet (Deltasone) Take 3 Tablets by mouth in the morning. 90 Tablet 0 4 Active Multiple Vitamins-Minera ls (ONE-A-DAY WOMENS 50+ ADVANTAGE) Tablet Take 1 Tablet by mouth in the morning. 0 02/08/20 24 Discontinued Atovaquone 750 MG/5ML Oral Suspension (Mepron) Take 10 mL by mouth in the morning. 210 mL 0 4 02/04/20 24 Discontinued(Ref ill) Enoxaparin Sodium 100 MG/ML Injection Solution Prefilled Syringe (Lovenox) Inject 50 mg under the skin in the morning and 50 mg before bedtime. 100 mL 2 4 02/18/20 24 Discontinued(Ref ill) documented as of this encounter (statuses as of 02/26/2024) Active Problems Problem Noted Date Diagnosed Date Acute ITP 12/18/2023 SDH (subdural hematoma) 11/16/2023 [...] Next Due Pneumococcal Conjugate Vacci ne, 20-valent ([id number]) 05/30/2022 Pneumococcal Polysaccharide PPV23 (Pneumovax) 09/24/2012,07/08/2009(Deferred: Patient [...] Sign Reading Time Taken Comments Blood Pressure 109/55 01/23/2024 3:35 PM EDT Pulse 90 01/23/2024 3:35 PM EDT Temperature 36.5 C (97.7 F) 01/23/2024 2:00 PM ED T Respiratory Rate 18 01/23/2024 3:35 PM EDT Oxygen Saturation 98% 01/23/2024 2:30 PM EDT Inhaled Oxygen Concentration - - Weight - - Height - - Body Mass Index - - documented in this encounter Functional Status Functional [...] No 12/25/2023 documented as of this encounter Nursing Notes * Jenn Duff RN - 01/23/2024 4:54 PM EDT Safety and Risk for Injury Patient will remain free from injury. Ensure appropriate safety devices are available. Provide and maintain safe environment. Goals: see above Possible barriers to meeting goals: iv infusion Stability of the patient: Moderately stable - low risk of patient condition declining or worsening Summary regarding today's goals: Met: no falls Functional status at today's visit: Fully active, able to carry on all pre-disease performance without restriction The drug name, dose, infusion volume, rate and route of administration, expiration date and time, appearance and physical integrity of the drug and rate set on the pump and sequencing of drug administration (as applicable) were verified by me and second sign-in RN. Patient was assessed for symptoms or adverse side effects during treatment. * Junie Guerrero RN - 01/23/2024 10:35 AM EDT Pre-chemo checklist Chemo/Immune agents :::rituxan Consent for chemotherapy drug treatment complete, dated, and signed? 12/20/2023 Is this a research protocol? no Treatment lab parameters met? Yes Has treatment weight changed > than 10% No Treatment preauthorized? Yes Blood pressure N/A Urine protein N/A Chemo education completed for new therapies? N/A Return appointment scheduled Yes Orders released Yes, per provider per Stacey THOMASON it is OK to treat today with rituxan documented in this encounter Plan of Treatment Upcoming Encounters Date Type Department Care Team (Late st Contact Info) Description 02/27/2024 7:00 AM EDT Laboratory Lab Mobile Phlebotomy [facility] [address] [employer] [place] [address] [facility], [facility] [address] [employer] [place] [address] 03/04/2024 1:15 PM EDT Office [facility] [place] [phone] Ralph Barron MD 200 [facility] [place] [address] 03/05/2024 7:00 AM EDT Laboratory Lab Mobile Phlebotomy [facility] [address] [employer] [place] [address] Mvmg, [facility] Draw [address] [employer] [place] [address] 03/06/2024 6:00 AM EDT Anticoagulation Pharmacy Call Center [phone] [place] [address] [facility], [facility] [address] [facility] [place] [address] 03/12/2024 7:00 AM EDT Laboratory Lab Mobile Phlebotomy [facility] [address] [place] [address] Mvmg, Gml [facility] Draw [address] [place] [address] 03/19/2024 7:00 AM EDT Laboratory Lab Mobile Phlebotomy [facility] [address] [place] [address] Mvmg, [facility] Draw [address] [place] [address] 03/26/2024 7:00 AM EDT Laboratory Lab Mobile Phlebotomy [facility] [address] [place] [address] Mvmg, [facility]ml [facility] Draw [address] [place] [address] 04/02/2024 7:00 AM EDT Laboratory Lab Mobile Phlebotomy [facility] [address] [place] [address] Mvmg, Gml [facility] Draw [address] [facility] [place] [address] 04/09/2024 7:00 AM EDT Laboratory Lab Mobile Phlebotomy [facility] [address] [place] [address] Mvmg, Gml [facility] Draw [address] [place] [address] 04/16/2024 7:00 AM EDT Laboratory Lab Mobile Phlebotomy [facility] [address] [place] [address] Mvmg, Gml [facility] Draw [address] [place] [address] 04/23/2024 7:00 AM EDT Laboratory Lab Mobile Phlebotomy [facility] [address] [place] [address] Mvmg, Gml [facility] Draw [address] [place] [address] 04/30/2024 7:00 AM EDT Laboratory Lab Mobile Phlebotomy [facility] [address] [facility] [place] [address] Mvmg, Gml Mobile Home Draw [address] [facility] [place] [address] 05/07/2024 7:00 AM EDT Laboratory Lab Mobile Phlebotomy [facility] [address] [employer] [facility] [place] [address] Mvmg, Gml Mobile Home Draw [address] [facility] [place] [address] 05/14/2024 7:00 AM EDT Laboratory Lab Mobile Phlebotomy [facility] [address] [place] [address] Mvmg, Gml Mobile Home Draw [address] [facility] [place] [address] 05/21/2024 7:00 AM EDT Laboratory Lab Mobile Phlebotomy [facility] [address] [place] [address] Mvmg, Gml Mobile Home Draw [address] [place] [address] 05/28/2024 7:00 AM EDT Laboratory Lab Mobile Phlebotomy [facility] [address] [place] [address] Mvmg, Gml [facility] Draw [address] [facility] [place] [address] 06/04/2024 7:00 AM EDT Laboratory Lab Mobile Phlebotomy [facility] [address] [facility] [place] [address] Mvmg, Gml [facility] Draw [address] [place] [address] 06/11/2024 7:00 AM EDT Laboratory Lab Mobile Phlebotomy [facility] [address] [place] [address] Mvmg, Gml Mobile Home Draw [address] [address] 06/18/2024 7:00 AM EDT Laboratory Lab Mobile Phlebotomy [facility] [address] [facility] [place] [address] Mvmg, Gml Mobile Home Draw [address] [place] [address] [address] 06/25/2024 7:00 AM EDT Laboratory Lab Mobile Phlebotomy [facility] [address] [facility] [place] [address] M[facility], Gml Mobile Home Draw 0 [facility] [place] [address] 08/12/2024 1:20 PM EDT Office Visit [address] [phone] Millie Lovell CRNP [address] [place] [address] [place] [address] 02/10/2025 1:40 PM EDT Office Visit [address] [place] [phone] Jewels Greenfield MD [address] [place] [address] [place] [address] Scheduled Procedures Name Priority Associated Diagnoses Date/Ti [...] this encounter Medical Devices Implanted Type Area Oil Burner Technician Device Identifier Shelf Expiration Date Model / Serial / Lot Naco 18 Liq Embolic Agent - [id number] Implanted:Qty: 1 on 12/31/2023 by Hesham Martell MD, PhD at [facility] [employer] : NEURO CARE [id number] 01/24/2026 105-7100-06 0 / / [id number] Description:Lot #[id number] documented as of this encounter Visit Diagnoses Diagnosis Acute ITP (HCC)- Primary Immune thrombocytopenic purpura Idiopathic thrombocytopenic purpura (ITP) (HCC) Immune thrombocytopenic purpura Encounter for antineoplastic chemotherapy [Z51.11] Encounter for antineoplastic chemotherapy documented in this encounter Administered Medications Inactive Administered Medications - up to 3 most recent administrations Medication Order MAR Action Action Date Dose Rate Site Acetaminophen (Tylenol) tab 650 mg 650 mg, Oral, ONCE, On Sun01/23/24 at 1145, For 1 dose, Maximum of 4 grams (4000 mg) per day. Given 01/23/2024 11:07 AM EDT 650 mg diphenhydrAMINE (Benadryl) cap 50 mg 50 mg, Oral, ONCE, On Sun01/23/24 at 1145, For 1 dose Given 01/23/2024 11:08 AM EDT 50 mg diphenhydrAMINE (Benadryl) inj 50 mg 50 mg, IV Push, ONCE PRN Other, Hypersensitivity Reaction, Starting on Sun01/23/24 at 1041, Until Sun01/23/24 at 2112, For 24 hours Given 01/23/2024 3:00 PM EDT 50 mg Famotidine (Pepcid) tab 20 mg 20 mg, Oral, ONCE, On Sun01/23/24 at 1145, For 1 dose Given 01/23/2024 11:07 AM EDT 20 mg Hydrocortisone Sod Suc (PF) (Solu-Cortef) inj 100 mg 100 mg, IV Push, ONCE PRN Other, Hypersensitivity Reaction, Starting on Sun01/23/24 at 1041, Until Sun01/23/24 at 2112, For 24 hours Given 01/23/2024 3:01 PM EDT 100 mg NSS infusion Intravenous, at 50 mL/hr, PRN, Starting on Sun01/23/24 at 1145, Until Sun01/23/24 at 2112, Maintenance line Start Infusion 01/23/2024 11:24 AM EDT 50 mL/hr ondansetron (Zofran) inj 8 mg 8 mg, IV Push, ONCE, On Sun01/23/24 at 1600, For 1 dose Given 01/23/2024 3:35 PM EDT 8 mg prochlorperazine (Compazine) inj 10 mg 10 mg, IV Push, ONCE, On Sun01/23/24 at 1600, For 1 dose Given 01/23/2024 3:35 PM EDT 10 mg riTUXimab-pvvr (Ruxience) 800 mg in NSS 250 mL ivpb 800 mg (rounded from 791.25 mg = 375 mg/m2 2.11 m2 Treatment Plan BSA from Recorded weight), IV Piggyback, ONCE, 1 dose, On Sun01/23/24 at 1215, ADM AT 100mL / HR FOR THE FIRST 30 MIN THEN AT 200mL / HR FOR THE REMAINDER Rate Change 01/23/2024 2:01 PM EDT 100 mL/hr Start Infusion 01/23/2024 12:57 PM EDT 800 mg 50 mL/hr documented in this encounter Advance Directives Latest [...]
--- OUTSIDE RECORDS SUMMARY | 2024-03-31 08:14 | External Medical Summary | Summary of Care ---
Author Name Unknown Organization [facility] Address [address] [place] [address] Phone [phone] Care Team Providers Care Nut Sheller Machine Operator Name Role Phone Jewels Greenfield MD Primary Care Provide r Reason for Visit * Reason Onset Date Comments Advice 02/25/2024 Encounter Details Date Type Department Care Team (Late st Contact Info) Description 02/25/2024 Refill [facility] [place] 200 [facility] [place] [address] Travis Barron MD [address] [facility] [place] [address] Acute ITP (HCC)* Allergies Active Allergy Reactions [...] Strip 3 2 Active OneTouch Delica Plus [id number] USE TO CHECK GLUCOSE ONCE DAILY 100 [...] Next Due Pneumococcal Conjugate Vacci ne, 20-valent ([id number]) 05/30/2022 Pneumococcal Polysaccharide PPV23 (Pneumovax) 09/24/2012,07/08/2009(Deferred: Patient [...] Miscellaneous Notes * Telephone Encounter - Angela Gaines LPN [...] dosing. * Telephone Encounter - Kayley Brooke [facility] - 02/25/2024 1:35 PM EDT Pt calling [...] Clinical Pharmacy Services ([facility]) 02/25/24 1:45 PM [phone] * Telephone Encounter - Иван De La Cruz PHARM Tech - 02/25/2024 1:28 PM EDT Pt calling with questions regarding her predniSONE 20 MG Oral Tablet (Deltasone) . [facility] questions. Thank you, Иван De La Cruz Travel Agency Manager I Centralized Clinical Pharmacy Services ([facility])(formerly Telepharmacy) 02/25/2024,1:30 PM documented in this encounter Plan of Treatment Upcoming Encounters Date Type Department Care Team (Late st Contact Info) Description 02/27/2024 7:00 AM EDT Laboratory Lab Mobile Phlebotomy [facility] [address] [place] [address] [address] M[facility], [facility] Draw [address] [place] [address] 03/04/2024 1:15 PM EDT Office Visit Hematology/Oncology [employer] 200 [facility] [place] [phone] Travis Barron MD 200 [facility] [place] [address] 03/05/2024 7:00 AM EDT Laboratory Lab Mobile Phlebotomy [facility] [address] [place] [address] [address] M[facility], [facility] Draw [address] [place] [address] 03/06/2024 6:00 AM EDT Anticoagulation Pharmacy Call Center [address] [facility] [place] [address] [facility], [facility] 58 60 [facility] [place] [address] 03/12/2024 7:00 AM EDT Laboratory Lab Mobile Phlebotomy [facility] [address] [place] [address] [address] Mvmg, Gml [facility] Draw [address] [place] [address] 03/19/2024 7:00 AM EDT Laboratory Lab Mobile Phlebotomy [facility] [address] [place] [address] [address] Mvmg, Gml [facility] Draw [address] [place] [address] 03/26/2024 7:00 AM EDT Laboratory Lab Mobile Phlebotomy [facility] [address] [address] Mvmg, Gml [facility] Draw [address] [place] [address] 04/02/2024 7:00 AM EDT Laboratory Lab Mobile Phlebotomy [facility] [address] [place] [address] Mvmg, Gml Mobile Home Draw [address] [place] [address] 04/09/2024 7:00 AM EDT Laboratory Lab Mobile Phlebotomy [facility] [address] [place] [address] Mvmg, Gml Mobile Home Draw [address] [place] [address] 04/16/2024 7:00 AM EDT Laboratory Lab Mobile Phlebotomy [facility] [address] [place] [address] Mvmg, Gml Mobile Home Draw [address] [place] [address] 04/23/2024 7:00 AM EDT Laboratory Lab Mobile Phlebotomy [facility] [address] [place] [address] Mvmg, Gml Mobile Home Draw [address] [place] [address] 04/30/2024 7:00 AM EDT Laboratory Lab Mobile Phlebotomy [facility] [address] [place] [address] Mvmg, Gml Mobile Home Draw [address] [place] [address] 05/07/2024 7:00 AM EDT Laboratory Lab Mobile Phlebotomy [facility] [address] [place] [address] Mvmg, Gml Mobile Home Draw [address] [place] [address] 05/14/2024 7:00 AM EDT Laboratory Lab Mobile Phlebotomy [facility] [address] [place] [address] Mvmg, Gml Mobile Home Draw [address] [place] [address] 05/21/2024 7:00 AM EDT Laboratory Lab Mobile Phlebotomy [facility] [address] [place] [address] Mvmg, Gml Mobile Home Draw [address] [place] [address] 05/28/2024 7:00 AM EDT Laboratory Lab Mobile Phlebotomy [facility] [address] [place] [address] Mvmg, Gml Mobile Home Draw [address] [place] [address] 06/04/2024 7:00 AM EDT Laboratory Lab Mobile Phlebotomy [facility] [address] [place] [address] Mvmg, Gml Mobile Home Draw [address] [place] [address] 06/11/2024 7:00 AM EDT Laboratory Lab Mobile Phlebotomy [facility] [address] [place] [address] Mvmg, Gml Mobile Home Draw [address] [place] [address] 06/18/2024 7:00 AM EDT Laboratory Lab Mobile Phlebotomy [facility] [address] [place] [address] Mvmg, Gml Mobile Home Draw [address] [place] [address] 06/25/2024 7:00 AM EDT Laboratory Lab Mobile Phlebotomy [facility] [address] [place] [address] Mvmg, Gml Mobile Home Draw [address] [place] [place] [address] 08/12/2024 1:20 PM EDT Office Visit Family Medicine [address] [phone] Millie Lovell [address] [place] [address] 02/10/2025 1:40 PM EDT Office Visit Family Medicine [address] [place] [phone] Jewels Greenfield MD [address] [place] [address] [place] [address] Scheduled Procedures Name Priority Associated Diagnoses Date/Ti me COLONOSCOPY FLEXIBLE PROXIMA L DIAGNOSTIC Recall History of colon polyps Special screening for malignant neoplasms, colon Health Maintenance Due Date Last Done Comments Hepatitis B (1 of 3 - 19+ 3-dose series) 1988 Zoster Vaccines (1 of 2) 2019 COLONOSCOPY-ANNUAL AGES 18-100 06/18/2020 06/18/2019, 06/18/2019 Depression Screening 09/09/2021 09/09/2020 COVID-19 Vaccine (2022- season) 2023 Influenza Vaccine (FLU shot) (Season [...] this encounter Medical Devices Implanted Type Area Lye Treater Device Identifier Shelf Expiration Date Model / Serial / Lot Henrik 18 Liq Embolic Agent - [id number] Implanted:Qty: 1 on 12/31/2023 by Hesham Martell MD, PhD at [facility] [employer] : NEURO CARE [id number] 01/24/2026 105-7100-06 0 / / [id number] Description:Lot #[id number] documented as of this encounter Visit Diagnoses [...] Advance Directives occurred with: Patient Care Teams Nut Sheller Machine Operator Relationship Specialty Start Date End Date Jewels Greenfield MD [address] [place] [address] [place] [address] PCP - General Family Medicine 02/18/24 documented as of this encounter
--- OUTSIDE RECORDS SUMMARY | 2024-03-31 08:14 | External Medical Summary | Summary of Care ---
Author Name Unknown Organization [facility] Address [address] [place] [address] Phone [phone] Care Team Providers Care Flight Agent Name Role Phone Unavailable Primary Care Provider Unavailabl e Reason for Visit * Episode Based Medications (Routine) - Closed Specialty Diagnoses / Procedures Referred By Contac t Referred To Contact Diagnoses Acute ITP (HCC) Idiopathic thrombocytopenic purpura (ITP) (HCC) Procedures ME INJECTION, RITUXIMAB-PVVR, BIOSIMILAR, (RUXIENCE), 10 MG Ralph Barron MD 200 [place] [address] Anc Hem/Onc [facility] 200 [place] [address] Referral ID Status Reason Start Date Expiration Date Visits Re quested Visits Authorized [id number] Closed 12/19/2023 03/18/2024 4 4 Encounter Details Date Type Department Care Team (Latest Contact Info) Description 01/23/2024 10:30 AM EDT Hem/Onc Treatment Hematology Oncology [place] [address] [place], [place] [phone] [place], [facility] 10 Hem/Onc [address] [place] [address] [phone] Acute ITP (HCC)*; Idiopathic thrombocytopenic purpura (ITP) [...] Strip 3 2 Active OneTouch Delica Plus [id number] USE TO CHECK GLUCOSE ONCE DAILY 100 Each 3 2 Active BioLight Israeli Life Sciences Investments LtdTouch Verio Flex System w/Device KitIndications: Hypoglycemia Use [...] Next Due Pneumococcal Conjugate Vacci ne, 20-valent ([id number]) 05/30/2022 Pneumococcal Polysaccharide PPV23 (Pneumovax) 09/24/2012,07/08/2009(Deferred: Patient [...] as of this encounter Nursing Notes * eJnn Duff RN - 01/23/2024 4:54 PM EDT [...] EDT Laboratory Lab Mobile Phlebotomy M[facility] [address] [employer] [place] [address] Mvmg, Gml Mobile Home Draw [address] [employer] [place] [address] 03/04/2024 1:15 PM EDT Office Visit [facility] 200 [facility] [place] [phone] Ralph Barron MD 200 [facility] [place] [address] 03/05/2024 7:00 AM EDT Laboratory Lab Mobile Phlebotomy MVMG [address] [employer] [place] [address] Mvmg, Gml Mobile Home Draw [address] [employer] [place] [address] 03/06/2024 6:00 AM EDT Anticoagulation Pharmacy Call Center [address] [place] [address] [facility] 58 60 [facility] [place] [address] 03/12/2024 7:00 AM EDT Laboratory Lab Mobile Phlebotomy MVMG 2520 [place] [address] Mvmg, Gml Mobile Home Draw 2520 [place] [address] 03/19/2024 7:00 AM EDT Laboratory Lab Mobile Phlebotomy MVMG 2520 [place] [address] Mvmg, Gml Mobile Home Draw 2520 [place] [address] 03/26/2024 7:00 AM EDT Laboratory Lab Mobile Phlebotomy MVMG 2520 [place] [address] Mvmg, Gml Mobile Home Draw 2520 [place] [address] 04/02/2024 7:00 AM EDT Laboratory Lab Mobile Phlebotomy MVM[facility] 2520 [place] [address] Mvmg, Gml Mobile Home Draw 2520 [place] [address] 04/09/2024 7:00 AM EDT Laboratory Lab Mobile Phlebotomy MVMG 2520 [place] [address] Mvmg, Gml Mobile Home Draw 2520 [place] [address] 04/16/2024 7:00 AM EDT Laboratory Lab Mobile Phlebotomy MVMG 2520 [place] [address] Mvmg, Gml Mobile Home Draw 2520 [place] [address] 04/23/2024 7:00 AM EDT Laboratory Lab Mobile Phlebotomy MVMG 2520 [place] [address] Mvmg, Gml Mobile Home Draw 2520 [place] [address] 04/30/2024 7:00 AM EDT Laboratory Lab Mobile Phlebotomy MVMG 2520 [place] [address] Mvmg, Gml Mobile Home Draw 2520 [facility] [place] [address] 05/07/2024 7:00 AM EDT Laboratory Lab Mobile Phlebotomy MVMG 2520 [employer] [address] Mvmg, Gml Mobile Home Draw 2520 [facility] [place] [address] 05/14/2024 7:00 AM EDT Laboratory Lab Mobile Phlebotomy MVMG [address] [place] [address] Mvmg, Gml Mobile Home Draw 2520 [facility] [place] [address] 05/21/2024 7:00 AM EDT Laboratory Lab Mobile Phlebotomy MVMG [address] [place] [address] Mvmg, Gml Mobile Home Draw [address] [email or web address] [address] 05/28/2024 7:00 AM EDT Laboratory Lab Mobile Phlebotomy MVM[facility] [address] [place] [address] Mvmg, Gml Mobile Home Draw 2520 [place] [address] 06/04/2024 7:00 AM EDT Laboratory Lab Mobile Phlebotomy MVMG 25[address] [facility] [place] [address] Mvmg, Gml Mobile Home Draw [address] [email or web address] [address] 06/11/2024 7:00 AM EDT Laboratory Lab Mobile Phlebotomy MVMG [address] [place] [address] Mvmg, Gml Mobile Home Draw [address] [email or web address] [address] 06/18/2024 7:00 AM EDT Laboratory Lab Mobile Phlebotomy MVMG 2520 [facility] [place] [address] Mvmg, Gml Mobile Home Draw [address] [place] [address] 06/25/2024 7:00 AM EDT Laboratory Lab Mobile Phlebotomy MVMG 3900 [facility] [place] [address] Mvmg, Gml Mobile Home Draw 0 [facility] [place] [address] 08/12/2024 1:20 PM EDT Office Visit [address] [phone] Millie Lovell CRNP [address] [place] [address] [place] [address] 02/10/2025 1:40 PM EDT Office Visit [address] [place] [phone] Jewels Greenfield MD [address] [place] [address] [place] [address] Scheduled Procedures Name Priority Associated Diagnoses Date/Ti [...] this encounter Medical Devices Implanted Type Area Qual Field Manager Device Identifier Shelf Expiration Date Model / Serial / Lot [place] 18 Liq Embolic Agent - [id number] Implanted:Qty: 1 on 12/31/2023 by Hesham Martell MD, PhD at [place] [facility] [employer] : NEURO CARE [id number] 01/24/2026 105-7100-06 0 / / [id number] Description:Lot #[id number] documented as of this encounter Visit Diagnoses [...]
--- OUTSIDE RECORDS SUMMARY | 2024-03-31 08:14 | External Medical Summary | Summary of Care ---
Author Name Unknown Organization [facility] Address [address] [place] [address] Phone [phone] Care Team Providers Care Cell Repairer Name Role Phone Unavailable Primary Care Provider Unavailabl e Reason for Visit * Episode Based Medications (Routine) - Closed Specialty Diagnoses / Procedures Referred By Contac t Referred To Contact Diagnoses Acute ITP (HCC) Idiopathic thrombocytopenic purpura (ITP) (HCC) Procedures DE INJECTION, RITUXIMAB-PVVR, BIOSIMILAR, (RUXIENCE), 10 MG Ralph Barron MD 200 [place] [address] Anc Hem/Onc [facility] 200 [place] [address] Referral ID Status Reason Start Date Expiration Date Visits Re quested Visits Authorized [id number] Closed 12/19/2023 03/18/2024 4 4 Encounter Details Date Type Department Care Team (Latest Contact Info) Description 01/23/2024 10:30 AM EDT Hem/Onc Treatment Hematology Oncology [place] [address] [place], [place] [phone] [place], [facility] 10 Hem/Onc [address] [place] [address] [phone] Acute ITP (HCC)*; Idiopathic thrombocytopenic purpura (ITP) [...] Strip 3 2 Active OneTouch Delica Plus Igljem94F USE TO CHECK GLUCOSE ONCE DAILY 100 Each 3 2 Active Sammie J's Divine Cupcakes & BakeryTouch Verio Flex System w/Device KitIndications: Hypoglycemia Use [...] Next Due Pneumococcal Conjugate Vacci ne, 20-valent ([id number]) 05/30/2022 Pneumococcal Polysaccharide PPV23 (Pneumovax) 09/24/2012,07/08/2009(Deferred: Patient [...] EDT Laboratory Lab Mobile Phlebotomy MVM[facility] [address] [employer] [place] [address] Mvmg, Gml Mobile Home Draw [address] [employer] [place] [address] 03/04/2024 1:15 PM EDT Office [facility] 200 [facility] [place] [phone] Ralph Barron MD [address] [facility] [place] [address] 03/05/2024 7:00 AM EDT Laboratory Lab Mobile Phlebotomy MVMG [address] [employer] [place] [address] Mvmg, Gml Mobile Home Draw [address] [employer] [place] [address] 03/06/2024 6:00 AM EDT Anticoagulation Pharmacy Call Center WB [address] [place] [address] [facility], [facility] 58 60 [facility] [place] [address] 03/12/2024 7:00 AM EDT Laboratory Lab Mobile Phlebotomy MVMG 2520 [place] [address] Mvmg, Gml Mobile Home Draw 2520 [place] [address] 03/19/2024 7:00 AM EDT Laboratory Lab Mobile Phlebotomy MVMG 2520 [place] [address] Mvmg, Gml Mobile Home Draw 2520 [place] [address] 03/26/2024 7:00 AM EDT Laboratory Lab Mobile Phlebotomy MVMG 2520 [place] [address] Mvmg, Gml Mobile Home Draw 2520 [place] [address] 04/02/2024 7:00 AM EDT Laboratory Lab Mobile Phlebotomy MVMG 2520 [place] [address] Mvmg, Gml Mobile Home Draw 2520 [place] [address] 04/09/2024 7:00 AM EDT Laboratory Lab Mobile Phlebotomy MVMG 2520 [place] [address] Mvmg, Gml Mobile Home Draw 2520 [place] [address] 04/16/2024 7:00 AM EDT Laboratory Lab Mobile Phlebotomy MVMG 2520 [place] [address] Mvmg, Gml Mobile Home Draw 2520 [place] [address] 04/23/2024 7:00 AM EDT Laboratory Lab Mobile Phlebotomy MVMG 2520 [place] [address] Mvmg, Gml Mobile Home Draw 2520 [place] [address] 04/30/2024 7:00 AM EDT Laboratory Lab Mobile Phlebotomy MVMG 2520 [place] [address] Mvmg, Gml Mobile Home Draw 2520 [place] [address] 05/07/2024 7:00 AM EDT Laboratory Lab Mobile Phlebotomy MVMG [address] [employer] [place] [address] Mvmg, Gml Mobile Home Draw 2520 [place] [address] 05/14/2024 7:00 AM EDT Laboratory Lab Mobile Phlebotomy MVMG [address] [place] [address] Mvmg, Gml Mobile Home Draw 2520 [place] [address] 05/21/2024 7:00 AM EDT Laboratory Lab Mobile Phlebotomy MVMG [address] [place] [address] Mvmg, Gml Mobile Home Draw [address] [place] [address] 05/28/2024 7:00 AM EDT Laboratory Lab Mobile Phlebotomy MVMG [address] [place] [address] Mvmg, Gml Mobile Home Draw 2520 [place] [address] 06/04/2024 7:00 AM EDT Laboratory Lab Mobile Phlebotomy MVMG 2520 [place] [address] Mvmg, Gml Mobile Home Draw [address] [place] [employer] [address] 06/11/2024 7:00 AM EDT Laboratory Lab Mobile Phlebotomy MVMG [address] [place] [address] Mvmg, Gml Mobile Home Draw [address] [place] [employer] [address] 06/18/2024 7:00 AM EDT Laboratory Lab Mobile Phlebotomy MVMG 2520 [place] [address] Mvmg, Gml Mobile Home Draw [address] [place] [address] [address] 06/25/2024 7:00 AM EDT Laboratory Lab Mobile Phlebotomy MVMG 4750 [facility] [place] [address] Mvmg, Gml Mobile Home Draw 0 [facility] [place] [address] 08/12/2024 1:20 PM EDT Office Visit [address] [phone] Millie Lovell CRNP [address] [place] [address] [place] [address] 02/10/2025 1:40 PM EDT Office Visit [address] [place] [phone] Jewels Greenfield MD [address] [place] [address] [place] [address] Scheduled Procedures Name Priority Associated Diagnoses Date/Ti [...] this encounter Medical Devices Implanted Type Area Title Clerk Device Identifier Shelf Expiration Date Model / Serial / Lot [place] 18 Liq Embolic Agent - [id number] Implanted:Qty: 1 on 12/31/2023 by Hesham Martell MD, PhD at [place] [facility] [employer] : NEURO CARE [id number] 01/24/2026 105-7100-06 0 / / [id number] Description:Lot #[id number] documented as of this encounter Visit Diagnoses [...]
--- OUTSIDE RECORDS SUMMARY | 2024-03-31 08:14 | External Medical Summary | Summary of Care ---
Author Name Unknown Organization [facility] Address [address] [place] [address] Phone [phone] Care Team Providers Care Workforce Investment Act Career Manager Name Role Phone Unavailable Primary Care Provider Unavailabl e Reason for Visit * Episode Based Medications (Routine) - Closed Specialty Diagnoses / Procedures Referred By Contac t Referred To Contact Diagnoses Acute ITP (HCC) Idiopathic thrombocytopenic purpura (ITP) (HCC) Procedures CA INJECTION, RITUXIMAB-PVVR, BIOSIMILAR, (RUXIENCE), 10 MG Ralph Barron MD 200 [place] [address] Anc Hem/Onc [facility] 200 [place] [address] Referral ID Status Reason Start Date Expiration Date Visits Re quested Visits Authorized [id number] Closed 12/19/2023 03/18/2024 4 4 Encounter Details Date Type Department Care Team (Latest Contact Info) Description 01/23/2024 10:30 AM EDT Hem/Onc Treatment Hematology Oncology [place] [address] [place], [place] [phone] [place], [facility] 10 Hem/Onc [address] [place] [address] [phone] Acute ITP (HCC)*; Idiopathic thrombocytopenic purpura (ITP) [...] Strip 3 2 Active OneTouch Delica Plus Eoylzz99T USE TO CHECK GLUCOSE ONCE DAILY 100 Each 3 2 Active Sapato.ruTouch Verio Flex System w/Device KitIndications: Hypoglycemia Use [...] Next Due Pneumococcal Conjugate Vacci ne, 20-valent (Mylmqry74) 05/30/2022 Pneumococcal Polysaccharide PPV23 (Pneumovax) 09/24/2012,07/08/2009(Deferred: Patient [...] EDT Laboratory Lab Mobile Phlebotomy MVMG [address] [place] [address] Mvmg, Gml Mobile Home Draw [address] [place] [address] 03/04/2024 1:15 PM EDT Office Visit [facility] 200 [facility] [place] [phone] Ralph Barron MD 200 [facility] [place] [address] 03/05/2024 7:00 AM EDT Laboratory Lab Mobile Phlebotomy MVMG [address] [place] [address] Mvmg, Gml Mobile Home Draw [address] [place] [address] 03/06/2024 6:00 AM EDT Anticoagulation Pharmacy Call Center WB [address] [place] [address] [facility], [facility] 58 60 [facility] [place] [address] 03/12/2024 7:00 AM EDT Laboratory Lab Mobile Phlebotomy MVMG 2520 [place] [address] Mvmg, Gml Mobile Home Draw 2520 [place] [address] 03/19/2024 7:00 AM EDT Laboratory Lab Mobile Phlebotomy MVMG 2520 [place] [address] Mvmg, Gml Mobile Home Draw 2520 [place] [address] 03/26/2024 7:00 AM EDT Laboratory Lab Mobile Phlebotomy MVMG 2520 [place] [address] Mvmg, Gml Mobile Home Draw 2520 [place] [address] 04/02/2024 7:00 AM EDT Laboratory Lab Mobile Phlebotomy MVMG 2520 [place] [address] Mvmg, Gml Mobile Home Draw 2520 [place] [address] 04/09/2024 7:00 AM EDT Laboratory Lab Mobile Phlebotomy MVMG 2520 [place] [address] Mvmg, Gml Mobile Home Draw 2520 [place] [address] 04/16/2024 7:00 AM EDT Laboratory Lab Mobile Phlebotomy MVMG 2520 [place] [address] Mvmg, Gml Mobile Home Draw 2520 [place] [address] 04/23/2024 7:00 AM EDT Laboratory Lab Mobile Phlebotomy MVMG [address]20 [place] [address] Mvmg, Gml Mobile Home Draw 2520 [place] [address] 04/30/2024 7:00 AM EDT Laboratory Lab Mobile Phlebotomy MVMG 2520 [place] [address] Mvmg, Gml Mobile Home Draw 2520 [facility] [place] [address] 05/07/2024 7:00 AM EDT Laboratory Lab Mobile Phlebotomy MVMG 2520 [employer] [facility] [place] [address] Mvmg, Gml Mobile Home Draw 2520 [facility] [place] [address] 05/14/2024 7:00 AM EDT Laboratory Lab Mobile Phlebotomy MVMG [address] [place] [address] Mvmg, Gml Mobile Home Draw 2520 [facility] [place] [address] 05/21/2024 7:00 AM EDT Laboratory Lab Mobile Phlebotomy MVMG [address] [place] [address] Mvmg, Gml Mobile Home Draw 2520 [place] [address] 05/28/2024 7:00 AM EDT Laboratory Lab Mobile Phlebotomy MVMG [address] [place] [address] Mvmg, Gml Mobile Home Draw 2520 [place] [address] 06/04/2024 7:00 AM EDT Laboratory Lab Mobile Phlebotomy MVMG 2520 [facility] [place] [address] Mvmg, Gml Mobile Home Draw [address] [place] [address] 06/11/2024 7:00 AM EDT Laboratory Lab Mobile Phlebotomy MVMG [address] [place] [address] Mvmg, Gml Mobile Home Draw [address] [place] [address] 06/18/2024 7:00 AM EDT Laboratory Lab Mobile Phlebotomy MVMG 2520 [facility] [place] [address] Mvmg, Gml Mobile Home Draw [address] [place] [address] [address] 06/25/2024 7:00 AM EDT Laboratory Lab Mobile Phlebotomy MVMG 7280 [facility] [place] [address] Mvmg, Gml Mobile Home Draw 0 [facility] [place] [address] 08/12/2024 1:20 PM EDT Office Visit [address] [phone] Millie Lovell CRNP [address] [place] [address] [place] [address] 02/10/2025 1:40 PM EDT Office Visit [address] [place] [phone] Jewels Greenfield MD [address] [place] [address] [place] [address] Scheduled Procedures Name Priority Associated Diagnoses Date/Ti [...] this encounter Medical Devices Implanted Type Area Metal Bonder Device Identifier Shelf Expiration Date Model / Serial / Lot [place] 18 Liq Embolic Agent - [id number] Implanted:Qty: 1 on 12/31/2023 by Hesham Martell MD, PhD at OR [facility] [employer] : NEURO CARE [id number] 01/24/2026 105-7100-06 0 / / [id number] Description:Lot #[id number] documented as of this encounter Visit Diagnoses [...]
--- OUTSIDE RECORDS SUMMARY | 2024-03-31 08:14 | External Medical Summary | Summary of Care ---
Author Name Unknown Organization [facility] Address [address] [place] [address] Phone [phone] Care Team Providers Care Marking Stitcher Name Role Phone Unavailable Primary Care Provider Unavailabl e Reason for Visit * Episode Based Medications (Routine) - Closed Specialty Diagnoses / Procedures Referred By Contac t Referred To Contact Diagnoses Acute ITP (HCC) Idiopathic thrombocytopenic purpura (ITP) (HCC) Procedures MO INJECTION, RITUXIMAB-PVVR, BIOSIMILAR, (RUXIENCE), 10 MG Ralph Barron MD 200 [place] [address] Anc Hem/Onc [facility] 200 [place] [address] Referral ID Status Reason Start Date Expiration Date Visits Re quested Visits Authorized [id number] Closed 12/19/2023 03/18/2024 4 4 Encounter Details Date Type Department Care Team (Latest Contact Info) Description 01/23/2024 10:30 AM EDT Hem/Onc Treatment Hematology Oncology [place] [address] [place], [place] [phone] [place], [facility] 10 Hem/Onc [address] [place] [address] [phone] Acute ITP (HCC)*; Idiopathic thrombocytopenic purpura (ITP) [...] Strip 3 2 Active OneTouch Delica Plus Vjwmjz62U USE TO CHECK GLUCOSE ONCE DAILY 100 Each 3 2 Active ParsoTouch Verio Flex System w/Device KitIndications: Hypoglycemia Use [...] Next Due Pneumococcal Conjugate Vacci ne, 20-valent ([id number]) 05/30/2022 Pneumococcal Polysaccharide PPV23 (Pneumovax) 09/24/2012,07/08/2009(Deferred: Patient [...] EDT Laboratory Lab Mobile Phlebotomy MVMG [address] [place] [address] Mvmg, Gml Mobile Home Draw [address] [place] [address] 03/04/2024 1:15 PM EDT Office Visit [facility]ology[facility] 200 [facility] [place] [phone] Ralph Barron MD 200 [facility] [place] [address] 03/05/2024 7:00 AM EDT Laboratory Lab Mobile Phlebotomy MVMG [address] [place] [address] Mvmg, Gml Mobile Home Draw [address] [place] [address] 03/06/2024 6:00 AM EDT Anticoagulation Pharmacy Call Center WB [address] [place] [address] [facility], [facility] 58 60 [facility] [place] [address] 03/12/2024 7:00 AM EDT Laboratory Lab Mobile Phlebotomy MVMG 2520 [facility] [address] Mvmg, Gml Mobile Home Draw 2520 [facility] [place] [address] 03/19/2024 7:00 AM EDT Laboratory Lab Mobile Phlebotomy MVMG 2520 [facility] [place] [address] Mvmg, Gml Mobile Home Draw 2520 [facility] [place] [address] 03/26/2024 7:00 AM EDT Laboratory Lab Mobile Phlebotomy MVMG 2520 [facility] [place] [address] Mvmg, Gml Mobile Home Draw 2520 [facility] [place] [address] 04/02/2024 7:00 AM EDT Laboratory Lab Mobile Phlebotomy MVMG 2520 [facility] [place] [address] Mvmg, Gml Mobile Home Draw 2520 [facility] [place] [address] 04/09/2024 7:00 AM EDT Laboratory Lab Mobile Phlebotomy MVMG 2520 [facility] [place] [address] Mvmg, Gml Mobile Home Draw 2520 [facility] [place] [address] 04/16/2024 7:00 AM EDT Laboratory Lab Mobile Phlebotomy MVMG 2520 [facility] [place] [address] Mvmg, Gml Mobile Home Draw 2520 [facility] [place] [address] 04/23/2024 7:00 AM EDT Laboratory Lab Mobile Phlebotomy MVMG 2520 [facility] [place] [address] Mvmg, Gml Mobile Home Draw 2520 [facility] [place] [address] 04/30/2024 7:00 AM EDT Laboratory Lab Mobile Phlebotomy MVMG 2520 [facility] [place] [address] Mvmg, Gml Mobile Home Draw 2520 [facility] [place] [address] 05/07/2024 7:00 AM EDT Laboratory Lab Mobile Phlebotomy MVMG 2520 [employer] [place] [address] Mvmg, Gml Mobile Home Draw 2520 [facility] [place] [address] 05/14/2024 7:00 AM EDT Laboratory Lab Mobile Phlebotomy MVMG [address] [place] [address] Mvmg, Gml Mobile Home Draw 2520 [facility] [place] [address] 05/21/2024 7:00 AM EDT Laboratory Lab Mobile Phlebotomy MVMG [address] [place] [address] Mvmg, Gml Mobile Home Draw 2520 [email or web address] [address] 05/28/2024 7:00 AM EDT Laboratory Lab Mobile Phlebotomy MVMG [address] [place] [address] Mvmg, Gml Mobile Home Draw 2520 [facility] [place] [address] 06/04/2024 7:00 AM EDT Laboratory Lab Mobile Phlebotomy MVMG 2520 [facility] [place] [address] Mvmg, Gml Mobile Home Draw [address] [email or web address] [address] 06/11/2024 7:00 AM EDT Laboratory Lab Mobile Phlebotomy MVMG [address] [place] [address] Mvmg, Gml Mobile Home Draw [address] [email or web address] [address] 06/18/2024 7:00 AM EDT Laboratory Lab Mobile Phlebotomy MVMG 2520 [facility] [place] [address] Mvmg, Gml Mobile Home Draw [address] [place] [address] 06/25/2024 7:00 AM EDT Laboratory Lab Mobile Phlebotomy MVMG 5310 [facility] [place] [address] Mvmg, Gml Mobile Home Draw 0 [facility] [place] [address] 08/12/2024 1:20 PM EDT Office Visit [address] [phone] Millie Lovell CRNP [address] [place] [address] [place] M[place]on[place] [address] 02/10/2025 1:40 PM EDT Office Visit [address] [place] [phone] Jewels Greenfield MD [address] [place] [address] [place] M[place] [address] Scheduled Procedures Name Priority Associated Diagnoses Date/Ti [...] this encounter Medical Devices Implanted Type Area Marketing Administrator Device Identifier Shelf Expiration Date Model / Serial / Lot [place] 18 Liq Embolic Agent - [id number] Implanted:Qty: 1 on 12/31/2023 by Hesham Martell MD, PhD at [place] [facility] [employer] : NEURO CARE [id number] 01/24/2026 105-7100-06 0 / / [id number] Description:Lot #[id number] documented as of this encounter Visit Diagnoses [...]
--- OUTSIDE RECORDS SUMMARY | 2024-03-31 08:14 | External Medical Summary | Summary of Care ---
Author Name Unknown Organization [facility] Address [address] [place] [address] Phone [phone] Care Team Providers Care Assembler Molded Frames Name Role Phone Unavailable Primary Care Provider Unavailabl e Reason for Visit * Episode Based Medications (Routine) - Closed Specialty Diagnoses / Procedures Referred By Contac t Referred To Contact Diagnoses Acute ITP (HCC) Idiopathic thrombocytopenic purpura (ITP) (HCC) Procedures MI INJECTION, RITUXIMAB-PVVR, BIOSIMILAR, (RUXIENCE), 10 MG Ralph Barron MD [address] [place] [address] Anc Hem/Onc [facility] [address] [place] [address] Referral ID Status Reason Start Date Expiration Date Visits Re quested Visits Authorized [id number] Closed 12/19/2023 03/18/2024 4 4 Encounter Details Date Type Department Care Team (Latest Contact Info) Description 01/23/2024 10:30 AM EDT Hem/Onc Treatment Hematology Oncology [place] [address] [place], [place] [id number] [place], [place] 10 Hem/Onc [address] [place] [address] [phone] Acute ITP (HCC)*; Idiopathic thrombocytopenic purpura (ITP) [...] Strip 3 2 Active OneTouch Delica Plus [id number] USE TO CHECK GLUCOSE ONCE DAILY 100 Each 3 2 Active Cloudvue TechnologiesTouch Verio Flex System w/Device KitIndications: Hypoglycemia Use [...] Next Due Pneumococcal Conjugate Vacci ne, 20-valent ([id number]) 05/30/2022 Pneumococcal Polysaccharide PPV23 (Pneumovax) 09/24/2012,07/08/2009(Deferred: Patient [...] EDT Laboratory Lab Mobile [facility]le[facility] [address] [place] [address] Mvmg, Gml Mobile Home Draw [address] [place] [address] 03/04/2024 1:15 PM EDT Office [facility] [place] [phone] Ralph Barron MD 200 [facility] [place] [address] 03/05/2024 7:00 AM EDT Laboratory Lab Mobile Phlebotomy [facility] [address] [place] [address] Mvmg, Gml Mobile Home Draw [address] [place] [address] 03/06/2024 6:00 AM EDT Anticoagulation Pharmacy Call Center WB [address] [place] [address] [facility], [place] 58 60 [facility] [place] [address] 03/12/2024 7:00 AM EDT Laboratory [facility] Mobile Phlebotomy [facility] [address] [place] [address] Mvmg, Gml Mobile Home Draw [address] [place] [address] 03/19/2024 7:00 AM EDT Laboratory Lab Mobile Phlebotomy [facility] [address] [place] [address] Mvmg, Gml Mobile Home Draw [address] [facility] [address] 03/26/2024 7:00 AM EDT Laboratory Lab Mobile Phlebotomy [facility] [address] [place] [address] Mvmg, Gml Mobile Home Draw [address] [place] [address] 04/02/2024 7:00 AM EDT Laboratory Lab Mobile Phlebotomy [facility] [address] [place] [address] Mvmg, Gml Mobile Home Draw [address] [place] [address] 04/09/2024 7:00 AM EDT Laboratory Lab Mobile Phlebotomy [facility] [address] [place] [address] Mvmg, Gml Mobile Home Draw [address] [place] [address] 04/16/2024 7:00 AM EDT Laboratory Lab Mobile Phlebotomy [facility] [address] [place] [address] Mvmg, Gml Mobile Home Draw [address] [place] [address] 04/23/2024 7:00 AM EDT Laboratory Lab Mobile Phlebotomy [facility] [address] [place] [address] Mvmg, Gml Mobile Home Draw [address] [place] [address] 04/30/2024 7:00 AM EDT Laboratory Lab Mobile Phlebotomy [facility] [address] [place] [address] Mvmg, Gml Mobile Home Draw 2520 [facility] [place] [address] 05/07/2024 7:00 AM EDT Laboratory Lab Mobile Phlebotomy [facility] [address] [facility] [place] [address] Mvmg, Gml Mobile Home Draw [address] [facility] [place] [address] 05/14/2024 7:00 AM EDT Laboratory Lab Mobile Phlebotomy [facility] [address] [place] [address] Mvmg, Gml Mobile Home Draw 25[address] [facility] [place] [address] 05/21/2024 7:00 AM EDT Laboratory Lab Mobile Phlebotomy [facility] [address] [place] [address] Mvmg, Gml Mobile Home Draw [address] [place] [address] 05/28/2024 7:00 AM EDT Laboratory [facility] Mobile Phlebotomy [facility] [address] [place] [address] Mvmg, Gml Mobile Home Draw 25[address] [facility] [address] 06/04/2024 7:00 AM EDT Laboratory Lab Mobile Phlebotomy [facility] [address] [facility] [place] [address] Mvmg, Gml Mobile Home Draw [address] [place] [address] 06/11/2024 7:00 AM EDT Laboratory Lab Mobile Phlebotomy [facility] [address] [place] [address] Mvmg, Gml Mobile Home Draw [address] [place] [address] 06/18/2024 7:00 AM EDT Laboratory Lab Mobile Phlebotomy [facility] [address] [facility] [place] [address] Mvmg, Gml Mobile Home Draw [address] [place] [address] [address] 06/25/2024 7:00 AM EDT Laboratory Lab Mobile Phlebotomy [facility] 4590 [facility] [place] [address] Mvmg, Gml Mobile Home Draw 0 [facility] [place] [address] 08/12/2024 1:20 PM EDT Office Visit [address] [phone] Millie Lovell CRNP [address] [place] [address] [place] [address] 02/10/2025 1:40 PM EDT Office Visit [address] [place] [phone] Jewels Greenfield MD [address] [place] [address] [place] [address] Scheduled Procedures Name Priority Associated Diagnoses Date/Ti [...] this encounter Medical Devices Implanted Type Area Manager Labor Relations Device Identifier Shelf Expiration Date Model / Serial / Lot [place] 18 Liq Embolic Agent - [id number] Implanted:Qty: 1 on 12/31/2023 by Hesham Martell MD, PhD at [facility] [employer] : NEURO CARE [id number] 01/24/2026 105-7100-06 0 / / [id number] Description:Lot #[id number] documented as of this encounter Visit Diagnoses [...]
--- OUTSIDE RECORDS SUMMARY | 2024-03-31 08:14 | External Medical Summary | Summary of Care ---
Author Name Unknown Organization [facility] Address [address] [place] [address] Phone [phone] Care Team Providers Care Odd Piece Checker Name Role Phone Jewels Greenfield MD Primary Care Provide r Reason for Visit * Reason Onset Date Comments Advice 02/25/2024 Encounter Details Date Type Department Care Team (Late st Contact Info) Description 02/25/2024 Refill [facility]ematology[facility] [place] 200 [place] [phone] Travis Barron MD 200 [facility] [place] [address] Acute ITP (HCC)* Allergies Active Allergy Reactions [...] Strip 3 2 Active OneTouch Delica Plus [id number] USE TO CHECK GLUCOSE ONCE DAILY 100 [...] Next Due Pneumococcal Conjugate Vacci ne, 20-valent ([id number]) 05/30/2022 Pneumococcal Polysaccharide PPV23 (Pneumovax) 09/24/2012,07/08/2009(Deferred: Patient [...] Encounter - Angela Gaines LPN - 02/26/2024 8:29 AM EDT Called and spoke with patient, informed patient of responses from provider for her prednisone and the Keppra. Patient verbalized understanding. Also reminded patient of her appointment with Dr. Barronnext week on 03/04 at 1:15 pm [place]. Patient verbalized understanding, denies any further questions. * Telephone Encounter - Travis Barron MD [...] dosing. * Telephone Encounter - Kayley Brooke [facility] - 02/25/2024 1:35 PM EDT Pt calling [...] Clinical Pharmacy Services ([facility]) 02/25/24 1:45 PM [phone] * Telephone Encounter - Иван De La Cruz PHARM Tech - 02/25/2024 1:28 PM EDT Pt calling with questions regarding her predniSONE 20 MG Oral Tablet (Deltasone) . [facility]ed [facility]answer Pt's questions. Thank you, Иван De La Cruz Supervisor [employer] I Centralized Clinical Pharmacy Services ([facility])(formerly Telepharmacy) 02/25/2024,1:30 PM documented in this encounter Plan of Treatment Upcoming Encounters Date Type Department Care Team (Late st Contact Info) Description 02/27/2024 7:00 AM EDT Laboratory Lab Mobile Phlebotomy [facility] [address] [place] [address] Mvmg, Gml Mobile Home Draw [address] [place] [address] 03/04/2024 1:15 PM EDT Office Visit [facility]ematology[facility] [place] [address] [place] [address] [phone] Travis Barron MD [address] [facility] [place] [address] 03/05/2024 7:00 AM EDT Laboratory Lab Mobile Phlebotomy [facility] [address] [place] [address] Mvmg, Gml Mobile Home Draw [address] [place] [address] 03/06/2024 6:00 AM EDT Anticoagulation Pharmacy Call Center 58[address]60 [facility] [place] [address] [facility] 58 60 [facility] [place], [place] [address] 03/12/2024 7:00 AM EDT Laboratory Lab Mobile Phlebotomy [facility] [address], [place] [address] Mvmg, Gml Mobile Home Draw [address] [place], [place] [address] 03/19/2024 7:00 AM EDT Laboratory Lab Mobile Phlebotomy [facility] [address] [place], [place] [address] Mvmg, Gml Mobile Home Draw [address] [place] [address] 03/26/2024 7:00 AM EDT Laboratory Lab Mobile Phlebotomy [facility] [address] [place] [address] Mvmg, Gml Mobile Home Draw [address] [place], [place] [address] 04/02/2024 7:00 AM EDT Laboratory Lab Mobile Phlebotomy [facility] [address] [place], [place] [address] Mvmg, Gml Mobile Home Draw [address], [place] [address] 04/09/2024 7:00 AM EDT Laboratory Lab Mobile Phlebotomy [facility] [address], [place] [address] Mvmg, Gml Mobile Home Draw [address] [place], [place] [address] 04/16/2024 7:00 AM EDT Laboratory Lab Mobile Phlebotomy [facility] [address], [place] [address] Mvmg, Gml Mobile Home Draw [address], [place] [address] 04/23/2024 7:00 AM EDT Laboratory Lab Mobile Phlebotomy [facility] [address], [place] [address] Mvmg, Gml Mobile Home Draw [address] [place] [address] 04/30/2024 7:00 AM EDT Laboratory Lab Mobile Phlebotomy [facility] [address]20 [facility] [place] [address] Mvmg, Gml Mobile Home Draw 25[address] [facility] [place] [address] 05/07/2024 7:00 AM EDT Laboratory Lab Mobile Phlebotomy [facility] [address] [facility] [place] [address] Mvmg, Gml Mobile Home Draw 25[address] [facility] [place] [address] 05/14/2024 7:00 AM EDT Laboratory Lab Mobile Phlebotomy [facility] [address] [facility] [place] [address] Mvmg, Gml Mobile Home Draw 25[address] [facility] [place] [address] 05/21/2024 7:00 AM EDT Laboratory Lab Mobile Phlebotomy [facility] [address] [place] [address] Mvmg, Gml Mobile Home Draw [address] [place] [address] 05/28/2024 7:00 AM EDT Laboratory Lab Mobile Phlebotomy [facility] [address] [facility] [place] [address] Mvmg, Gml Mobile Home Draw [address] [facility] [place] [address] 06/04/2024 7:00 AM EDT Laboratory Lab Mobile Phlebotomy [facility] [address] [place] [address] Mvmg, Gml Mobile Home Draw [address] [facility] [place] [address] 06/11/2024 7:00 AM EDT Laboratory Lab Mobile Phlebotomy [facility] [address] [facility] [place] [address] Mvmg, Gml Mobile Home Draw [address] [facility] [place] [address] 06/18/2024 7:00 AM EDT Laboratory Lab Mobile Phlebotomy [facility] [address] [facility] [place] [address] Mvmg, Gml Mobile Home Draw 25[address] [facility] [place] [address] 06/25/2024 7:00 AM EDT Laboratory Lab Mobile Phlebotomy [facility] [address] [facility] [address] [place] [address] Mvmg, Gml Mobile Home Draw 2520 [facility] [place] [address] 08/12/2024 1:20 PM EDT Office Visit [address] [phone] Millie Lovell CRNP [address] [place] [address] [place] [address] 02/10/2025 1:40 PM EDT Office Visit [address] [phone] Jewels Greenfield MD [address] [place] [address] [place] [address] Scheduled Procedures Name Priority Associated Diagnoses Date/Ti [...] Additional history exists Lipid Panel 10/04/2028 10/04/2023, 02/04/2023, 03/27/2022, Additional history exists DTaP,Tdap,and Td Vaccines [...] this encounter Medical Devices Implanted Type Area Farm Butcher Device Identifier Shelf Expiration Date Model / Serial / Lot [place] 18 Liq Embolic Agent - [id number] Implanted:Qty: 1 on 12/31/2023 by Hesham Martell MD, PhD at [facility] [employer] : NEURO CARE [id number] 01/24/2026 105-7100-06 0 / / [id number] Description:Lot #[id number] documented as of this encounter Visit Diagnoses [...] Advance Directives occurred with: Patient Care Teams Odd Piece Checker Relationship Specialty Start Date End Date Jewels Greenfield MD [address] [place] [address] [place] [address] PCP - General Family Medicine 02/18/24 documented as of this encounter
--- OUTSIDE RECORDS SUMMARY | 2024-03-31 08:15 | External Medical Summary | Summary of Care ---
Author Name Unknown Organization [facility] Address [address] [place] [address] Phone [phone] Care Team Providers Care Cdl Company Driver Name Role Phone Jewels Greenfield MD Primary Care Provide r Reason for Visit * Reason Onset Date Comments Test Results Lab 02/19/2024 Encounter Details Date Type Department Care Team ([facility] st Contact Info) Description 02/19/2024 Telephone Hematology/Oncology [facility] [place] 200 [facility] [place] [phone] Ralph Barron MD 200 [facility] [address] Test Results Lab Allergies Active Allergy Reactions Criticality Noted Date Comments Codeine Hives,Itching 06/07/2018 Morphine And Related 01/28/2008 Rituximab 02/08/2024 documented as of this encounter (statuses as of 02/21/2024) Medications Medication Sig Dispensed Refills Start Date [...] Strip 3 05/15/2022 Active OneTouch Delica Plus [id number] USE TO CHECK GLUCOSE ONCE DAILY 100 [...] for Constipation. 15 Tablet 0 01/15/2024 Active predniSONE 20 MG Oral Tablet (Deltasone) Take 3 Tablets by mouth in the morning. 90 Tablet 0 01/16/2024 Active Sulfamethoxazole-Trime thoprim 800-160 MG Oral Tablet [...] before bedtime. 100 mL 0 02/18/2024 Active documented as of this encounter (statuses as of 02/21/2024) Active Problems Problem Noted Date Diagnosed Date [...] as of this encounter (statuses as of 02/21/2024) Resolved Problems Problem Noted Date Diagnosed Date [...] as of this encounter (statuses as of 02/21/2024) Immunizations Name Administration Dates Next Due Pneumococcal Conjugate Vacci ne, 20-valent ([id number]) 05/30/2022 Pneumococcal Polysaccharide PPV23 (Pneumovax) 09/24/2012,07/08/2009(Deferred: Patient [...] Miscellaneous Notes * Telephone Encounter - Juni Zelaya RN - 02/21/2024 8:[address] Barron- pt decreased prednisone dose to 40mg 2 days ago, recent CBC showing stable hgb, ok to decrease to 30mg on Sunday? * Telephone Encounter - Juni Zelaya RN - 02/19/2024 3:09 PM EDT Called patient, she states she is taking 50mg. Advised she may decrease to 2 tablets daily (40mg). Need to check her next CBC to further taper. * Telephone Encounter - Juni Zelaya RN - 02/19/2024 2:09 PM EDT Called patient to see how much prednisone she is currently taking and to reduce dose by 10mg if sheis taking more than 10mg. * Telephone Encounter - Teodora Veliz CRNP - 02/19/2024 1:55 PM EDT Platelet count 83K. Ok to continue taper. * Telephone Encounter - Juni Zelaya RN - 02/19/2024 1:[address] Ferrara pt to decrease prednisone by 10mg each week if labs are stable. Labs completed 02/12, please advise. Thank you. documented in this encounter Plan of Treatment Upcoming Encounters Date Type Department Care Team (Late st Contact Info) Description 02/27/2024 7:00 AM EDT Laboratory Lab Mobile Phlebotomy [facility] [address] [place] [address] Mvmg, Gml Mobile Home Draw 2520 [facility] [place] [address] 03/04/2024 1:15 PM EDT Office Visit [facility]ology[facility] [place] 200 [facility] [place] [phone] Ralph Barron MD 200 [facility] [place] [address] 03/05/2024 7:00 AM EDT Laboratory Lab Mobile Phlebotomy [facility] [address] [place] [address] Mvmg, Gml Mobile Home Draw [address] [place] [address] 03/12/2024 7:00 AM EDT Laboratory Lab Mobile Phlebotomy [facility] [address] [place] [address] Mvmg, Gml Mobile Home Draw [address] [place] [address] 03/19/2024 7:00 AM EDT Laboratory Lab Mobile Phlebotomy [facility] [address] [place] [address] Mvmg, Gml Mobile Home Draw [address] [place] [address] 03/26/2024 7:00 AM EDT Laboratory Lab Mobile Phlebotomy [facility] [address] [place] [address] Mvmg, Gml Mobile Home Draw [address] [place] [address] 04/02/2024 7:00 AM EDT Laboratory Lab Mobile Phlebotomy [facility] [address] [place] [address] Mvmg, Gml Mobile Home Draw [address] [place] [address] 04/09/2024 7:00 AM EDT Laboratory Lab Mobile Phlebotomy [facility] [address] [facility] [place] [address] Mvmg, Gml Mobile Home Draw [address] [facility] [place] [address] 04/16/2024 7:00 AM EDT Laboratory Lab Mobile Phlebotomy [facility] [address] [facility] [place] [address] Mvmg, Gml Mobile Home Draw [address] [facility] [place] [address] 04/23/2024 7:00 AM EDT Laboratory Lab Mobile Phlebotomy [facility] [address] [facility] [place] [address] Mvmg, Gml Mobile Home Draw [address] [facility] [place] [address] 04/30/2024 7:00 AM EDT Laboratory Lab Mobile Phlebotomy [facility] [address] [facility] [place] [address] Mvmg, Gml Mobile Home Draw [address] [place] [address] 05/07/2024 7:00 AM EDT Laboratory Lab Mobile Phlebotomy [facility] [address] [facility] [place] [address] Mvmg, Gml Mobile Home Draw [address] [facility] [place] [address] 05/14/2024 7:00 AM EDT Laboratory Lab Mobile Phlebotomy [facility] [address] [place] [address] Mvmg, Gml Mobile Home Draw [address] [facility] [place] [address] 05/21/2024 7:00 AM EDT Laboratory Lab Mobile Phlebotomy [facility] [address] [place] [place] [address] Mvmg, Gml Mobile Home Draw [address] [facility] [place] [address] 05/28/2024 7:00 AM EDT Laboratory Lab Mobile Phlebotomy [facility] [address] [place] [address] Mvmg, Gml Mobile Home Draw [address] [place] [address] 06/04/2024 7:00 AM EDT Laboratory Lab Mobile Phlebotomy [facility] [address] [employer] [place], [place] [address] Mvmg, Gml Mobile Home Draw [address] [place] [address] 06/11/2024 7:00 AM EDT Laboratory Lab Mobile Phlebotomy [facility] [address] [place] [address] Mvmg, Gml Mobile Home Draw [address] [place] [address] 06/18/2024 7:00 AM EDT Laboratory Lab Mobile Phlebotomy [facility] [address] [place] [address] Mvmg, Gml Mobile Home Draw [address] [place] [address] 06/25/2024 7:00 AM EDT Laboratory Lab Mobile Phlebotomy [facility] [address] [place] [address] Mvmg, Gml Mobile Home Draw [address] [place] [address] 08/12/2024 1:20 PM EDT Office Visit [address] [phone] Millie Lovell CRNP [address] [place] [address] [place] [address] 02/10/2025 1:40 PM EDT Office Visit [address] [phone] Jewels Greenfield MD [address] [place] [address] [place] [address] Scheduled Procedures Name Priority Associated Diagnoses Date/Ti me COLONOSCOPY FLEXIBLE PROXIMA L DIAGNOSTIC Recall History of colon polyps Special screening for malignant neoplasms, colon Health Maintenance Due Date Last Done Comments Hepatitis B (1 of 3 - 19+ 3-dose series) 1988 Zoster Vaccines (1 of 2) 2019 COLONOSCOPY-ANNUAL AGES 18-100 06/18/2020 06/18/2019, 06/18/2019 Depression Screening 09/09/2021 09/09/2020 COVID-19 Vaccine (1 - 2022- season) 2023 Influenza Vaccine (FLU [...] this encounter Medical Devices Implanted Type Area Office Services Assistant Device Identifier Shelf Expiration Date Model / Serial / Lot [place] 18 Liq Embolic Agent - [id number] Implanted:Qty: 1 on 12/31/2023 by Hesham Martell MD, PhD at [facility] [employer] : NEURO CARE [id number] 01/24/2026 105-7100-06 0 / / [id number] Description:Lot #[id number] documented as of this encounter Advance Directives [...] Advance Directives occurred with: Patient Care Teams Cdl Company Driver Relationship Specialty Start Date End Date Jewels Greenfield MD [address] [place] [address] [place] [address] PCP - General Family Medicine 02/18/24 documented as of this encounter
--- OUTSIDE RECORDS SUMMARY | 2024-03-31 08:15 | External Medical Summary | Summary of Care ---
Author Name Unknown Organization [facility] Address [address] [place] [address] Phone [phone] Care Team Providers Care Pianos [employer] Org[employer] Salesperson Name Role Phone Jewels Greenfield MD Primary Care Provide r Reason for Visit * Reason Onset Date Comments Advice 02/08/2024 abbott Encounter Details Date Type Department Care Team ([facility] st Contact Info) Description 02/08/2024 Refill Hematology/Oncology [facility] [address] [place] [phone] Services, Scheduling [address] [place] [address] Antiphospholipid antibody syndrome (HCC)* Allergies Active Allergy Reactions Criticality Noted [...] CHECK GLUCOSE ONCE DAILY 100 Strip 3 05/15/20 Active OneTouch Delica Plus [id number] USE TO CHECK GLUCOSE ONCE DAILY 100 Each 3 05/15/20 Active OneTouch Verio Flex System w/Device KitIndications:Hypog lycemia Use as directed . 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 3.5 g 2 10/05/20 22 Active Magnesium 250 MG Oral Tablet Take 1 Tablet by mouth in the morning. 0 Active Pantoprazole Sodium 40 MG Oral Tablet Delayed Release (Protonix) TAKE 1 TABLET BY MOUTH ONCE DAILY 30 MINUTES BEFORE THE FIRST MEAL OF THE DAY. DO NOT, CRUSH OR CHEW TABLET 90 Tablet 1 03/29/20 23 Active Simvastatin 20 MG Oral Tablet (Zocor)Indications:D yslipidemia, goal LDL below 130 TAKE 1 TABLET BY MOUTH ONCE DAILY AT NIGHT AT BEDTIME 90 Tablet 3 10/02/20 23 Active Polyethylene Glycol 3350 17 GM/SCOOP Oral Powder (Miralax) Mix 17g (1 capful to line) in 8-oz of water or juice and take by mouth daily as needed (Constipation). 119 g 0 11/20/19 24 Active Levoxyl 50 MCG Oral Tablet Take 1 Tablet by mouth in the morning. on an empty stomach.. 90 Tablet 1 11/23/19 24 Active levETIRAcetam 500 MG Oral Tablet (Keppra)Indications: Thrombocytopenia (HCC) Take 1 Tablet by mouth in the morning and 1 Tablet before bedtime. 60 Tablet 5 12/20/19 24 Active Sennosides-Docusate Sodium 8.6-50 MG Oral Tablet (Senokot-S) Take 1 Tablet by mouth daily as needed for Constipation. 15 Tablet 0 01/15/20 24 Active predniSONE 20 MG Oral Tablet (Deltasone) Take 3 Tablets by mouth in the morning. 90 Tablet 0 01/16/20 24 Active Sulfamethoxazole-Tri methoprim 800-160 MG Oral Tablet (Bactrim DS)Indications:Idiop athic thrombocytopenic purpura (ITP) (HCC) Take 1 Tablet by mouth once a day on Sunday, Sunday, and Sunday only. 15 Tablet 1 02/08/20 24 Active Additional Information Patient not taking.Reported on 02/08/2024 Enoxaparin Sodium 100 MG/ML Injection Solution Prefilled Syringe (Lovenox)Indications :Antiphospholipid antibody syndrome (HCC) Inject 50 mg under the skin in the morning and 50 mg before bedtime. 100 mL 0 02/18/20 24 Active Multiple Vitamins-Minerals (ONE-A-DAY WOMENS 50+ ADVANTAGE) Tablet Take 1 Tablet by mouth in the morning. 0 024 Discontinued Enoxaparin Sodium 100 MG/ML Injection Solution Prefilled Syringe (Lovenox) Inject 50 mg under the skin in the morning and 50 mg before bedtime. 100 mL 2 01/15/20 24 024 Discontinued(Re fill) documented as of this encounter (statuses as [...] Next Due Pneumococcal Conjugate Vacci ne, 20-valent ([id number]) 05/30/2022 Pneumococcal Polysaccharide PPV23 (Pneumovax) 09/24/2012,07/08/2009(Deferred: Patient [...] Encounter - Juni Zelaya RN - 02/21/2024 8:[address] Abbott "I would like patient to continue on Lovenox injections for now." Dr. Abbott- pt is currently taking 50mg Lovenox BID. * Telephone Encounter - Juni Zelaya RN - 02/18/2024 5:03 PM EDTSigned Prescriptions: Disp Refills Enoxaparin Sodium 100 MG/ML Injection Solu*100 mL 0 Sig: Inject 50 mg under the skin in the morning and 50 mg before bedtime.Authorizing Provider: KARL VILLA TAF * Addendum Note - Juni Zelaya RN - 02/18/2024 1:24 PM EDTAddended by: JUNI ZELAYA on: 02/18/2024 01:24 PM Modules accepted: Orders * Telephone Encounter - Juni Zelaya RN - 02/18/2024 1:[address] Abbott/Dr. Villa- please advise if you wish patient to continue on Lovenox for anticoagulation. She was previously on Coumadin however, this was switched when she was inpatient. Per Neurosurgery they are ok with her switching to oral anticoagulation. Please be advised that patient is currently taking Bactrim DS every MWF. Thank you. Pended Lovenox for now. * Telephone Encounter - [place], facilities locator - 02/18/2024 12:19 PM EDT Patient calling regarding Lovenox. Requesting this be sent to [facility]. Thank you, [place] Practice Lead 02/18/2024,12:19 PM * Telephone Encounter - Mady Izaguirre RN - 02/08/2024 11:27 AM EDT Called back and spoke to iMn. Advised that warfarin was discontinued, patient is on lovenox now. He verbalized understanding. * Telephone Encounter - Anita Francisco OSA - 02/08/2024 11:16 AM EDT Laura wooten calling wanted to make aware that the medication pt as prescribed could be watched for possible medication interaction Generic bactrim She is also on warfarin so he wants to make sure someone is aware that it could possible interact and change her numbers Please give him a call to make sure he knows that someone is aware of this and pt is going to be watched a little extra for this. [phone] Thank you documented in this encounter Plan of Treatment Upcoming Encounters Date Type Department Care Team (Late st Contact Info) Description 02/27/2024 7:00 AM EDT Laboratory Lab [facility] [address] [place] [address] Mvmg, [facility] Draw [address] [place] [address] 03/04/2024 1:15 PM EDT Office Visit Hematology/Oncology [facility] [place] [address] [place] [phone] Ralph Abbott MD [address] [place] [address] 03/05/2024 7:00 AM EDT Laboratory [facility] [address] [place] [address] Mvmg, [facility] Draw [address] [place] [address] 03/12/2024 7:00 AM EDT Laboratory [facility] [address] [place] [address] Mvmg, G[facility] Draw [address] [place] [address] 03/19/2024 7:00 AM EDT Laboratory [facility] [address] [place] [address] Mvmg, [facility]ml [facility] Draw [address] [employer] [place] [address] 03/26/2024 7:00 AM EDT Laboratory [facility] [address] [place] [address] Mvmg, Gml [facility] Draw [address] [place] [address] 04/02/2024 7:00 AM EDT Laboratory [facility] [address] [place] [address] Mvmg, Gml [facility] Draw [address] [employer] [place] [address] 04/09/2024 7:00 AM EDT Laboratory [facility] [address] [place] [address] Mvmg, Gml [facility] Draw [address] [employer] [place] [address] 04/16/2024 7:00 AM EDT Laboratory Lab [facility] [address] [place] [address] Mvmg, Gml [facility] Draw [address] [place] [address] 04/23/2024 7:00 AM EDT Laboratory [facility] [address] [place] [address] Mvmg, Gml [facility] Draw [address] [place] [address] 04/30/2024 7:00 AM EDT Laboratory Lab [facility]bot[facility] [address] [place] [address] Mvmg, Gml Mobile Home Draw [address] [place] [address] 05/07/2024 7:00 AM EDT Laboratory [facility] [address] [place] [address] Mvmg, Gml [facility] Draw [address] [place] [address] 05/14/2024 7:00 AM EDT Laboratory [facility] [address] [place] [address] Mvmg, Gml [facility] Draw [address] [place] [address] 05/21/2024 7:00 AM EDT Laboratory [facility] [address] [place] [address] Mvmg, Gml [facility] Draw [address] [place] [address] 05/28/2024 7:00 AM EDT Laboratory Lab [facility] [address] [place] [address] Mvmg, Gml Mobile [facility] Draw [address] [place] [address] 06/04/2024 7:00 AM EDT Laboratory [facility] [address] [place] [address] Mvmg, Gml Mobile Home Draw [address] [place] [address] 06/11/2024 7:00 AM EDT Laboratory [facility] [address] [place] [address] Mvmg, Gml Mobile Home Draw [address] [place] [address] 06/18/2024 7:00 AM EDT Laboratory [facility] [address] [place] [address] Mvmg, Gml [facility] Draw [address] [place] [address] 06/25/2024 7:00 AM EDT Laboratory Lab [facility] [address] [place] [address] Mvmg, Gml [facility] Draw [address] [place] [address] 08/12/2024 1:20 PM EDT Office Visit Family [address] [phone] Millie Lovell CRNP [address] [place] [address] [place] [address] 02/10/2025 1:40 PM EDT Office Visit Family [address] [phone] Jewels Greenfield MD [address] [place] [address] [place] [address] Scheduled Procedures Name Priority Associated Diagnoses Date/Ti [...] this encounter Medical Devices Implanted Type Area Butt Welder Device Identifier Shelf Expiration Date Model / Serial / Lot [place] 18 Liq Embolic Agent - [id number] Implanted:Qty: 1 on 12/31/2023 by Hesham Martell MD, PhD at [facility] [employer] : NEURO CARE [id number] 01/24/2026 105-7100-06 0 / / [id number] Description:Lot #[id number] documented as of this encounter Visit Diagnoses Diagnosis Antiphospholipid antibody syndrome (HCC)- Primary Primary hypercoagulable state documented in this encounter [...] Advance Directives occurred with: Patient Care Teams P[employer] Salesperson Relationship Specialty Start Date End Date Jewels Greenfield MD [address] [place] [address] [place] [id number] PCP - General Family Medicine 02/18/24 documented as of this encounter
--- OUTSIDE RECORDS SUMMARY | 2024-03-31 08:15 | External Medical Summary | Summary of Care ---
Author Name Unknown Organization [facility] Address [address] [place] [address] Phone [phone] Care Team Providers Care Cash Applications Clerk Name Role Phone Jewels Greenfield MD Primary Care Provide r Reason for Visit * Reason Comments Dosage Adjustment Via Phone (anticoag Cl inic) Encounter Details Date Type Department Care Team (Latest Contact Info) Description 02/21/2024 6:00 AM EDT Anticoagulation Pharmacy Call Center [phone] [place] [address] [facility] [address] [facility] [place] [address] Chronic deep vein thrombosis (DVT) of left [...] Strip 3 05/15/2022 Active OneTouch Delica Plus [id number] USE TO CHECK GLUCOSE ONCE DAILY 100 Each 3 05/15/2022 Active E-BlinkTouch Verio Flex System w/Device KitIndications:Hypogly cemia Use [...] Next Due Pneumococcal Conjugate Vacci ne, 20-valent (Febitfl77) 05/30/2022 Pneumococcal Polysaccharide PPV23 (Pneumovax) 09/24/2012,07/08/2009(Deferred: Patient [...] this encounter Progress Notes * Yousuf Durán bath attendant - 02/21/2024 12:13 PM EDT Patient Phone Numbers Spoke to [facility] via phone. Unusual Bruising or Bleeding : no Upcoming procedure: no Lovenox dose verified: compliant Labs were drawn ~ 4 hours after dose yes; compliant AntiXa results, Lovenox dose instructions, and next antiXa date communicated as noted by Pharmacist: Yes Thank You, Yousuf Durán [facility] Medical Physics Researcher II Centralized Clinical Pharmacy Services (Formerly Telepharmacy) 02/21/2024, 12:13 PM * Samaria Tapia RPh - 02/21/2024 10:03 AM EDT Anticoagulation Clinic Current Lovenox Dose: 50mg every 12 hours AntiXa level 0.75 (goal 0.6-1.0) Dose instructions: Lovenox CONTINUE 50mg every 12 hours Repeat antiXa level in 2 weeks on 03/05 with GML. Remind patient that labs must be drawn 4 hours after dose. TIANNA to contact patient with dose instructions as noted. Samaria Tapia RPh 02/21/24, 10:05 AM documented in this encounter Plan of Treatment Upcoming Encounters Date Type Department Care Team (Late st Contact Info) Description 02/27/2024 7:00 AM EDT Laboratory [facility] [address] [place] [address] Mvmg, Gml [facility] Draw [address] [email or web address] [place] [address] 03/04/2024 1:15 PM EDT Office Visit Hematology/Oncology [facility] [address], [place] [phone] Ralph Barron MD [address] [place] [address] 03/05/2024 7:00 AM EDT Laboratory [facility] [address], [place] [address] Mvmg, Gml Mobile Home Draw [address], [place] [address] 03/06/2024 6:00 AM EDT Anticoagulation Pharmacy Call Center WB [address] [facility] [place] [address] [address] [facility] 58 60 [facility] [place] [address] 03/12/2024 7:00 AM EDT Laboratory Lab [facility]bot[facility] [address] [facility] [address] [place], [place] [address] Mvmg, Gml Mobile Home Draw [address], [place] [address] 03/19/2024 7:00 AM EDT Laboratory [facility] [address], [place] [address] Mvmg, Gml [facility] Draw [address], [place] [address] 03/26/2024 7:00 AM EDT Laboratory [facility] [address] [place] [address] Mvmg, Gml Mobile [facility] Draw [address] [place] [address] 04/02/2024 7:00 AM EDT Laboratory [facility] [address] [place] [address] Mvmg, Gml [facility] Draw [address], [place] [address] 04/09/2024 7:00 AM EDT Laboratory [facility] [address] [place] [address] Mvmg, Gml Mobile Home Draw [address] [place] [address] 04/16/2024 7:00 AM EDT Laboratory Lab [facility]bot[facility] [address] [place] [address] Mvmg, Gml Mobile [facility] Draw [address] [place] [address] 04/23/2024 7:00 AM EDT Laboratory Lab [facility]bot[facility] [address] [place] [address] Mvmg, Gml Mobile Home Draw [address] [place] [address] 04/30/2024 7:00 AM EDT Laboratory Lab [facility] [address] [place] [address] Mvmg, Gml Mobile Home Draw [address] [facility] [address] 05/07/2024 7:00 AM EDT Laboratory Lab [facility]bot[facility] [address] [place] [address] Mvmg, Gml Mobile Home Draw [address] [place] [address] 05/14/2024 7:00 AM EDT Laboratory Lab [facility] [address] [place] [address] Mvmg, Gml Mobile Home Draw [address] [place] [address] 05/21/2024 7:00 AM EDT Laboratory [facility] [address] [place] [address] Mvmg, Gml Mobile Home Draw [address] [facility] [place] [address] 05/28/2024 7:00 AM EDT Laboratory Lab [facility] [address] [place] [place] [address] Mvmg, Gml Mobile Home Draw [address] [employer] [place], [place] [address] 06/04/2024 7:00 AM EDT Laboratory Lab [facility]lebot[facility] [address] [email or web address] [place] [address] Mvmg, Gml Mobile Home Draw [email or web address] [place] [address] 06/11/2024 7:00 AM EDT Laboratory Lab [facility] [address] [place], [place] [address] Mvmg, Gml Mobile Home Draw [address] [place] [address] 06/18/2024 7:00 AM EDT Laboratory [facility] [address] [place] [address] Mvmg, Gml Mobile Home Draw [address] [place] [address] 06/25/2024 7:00 AM EDT Laboratory [facility] [address] [place] [address] Mvmg, Gml Mobile Home Draw [address] [place] [address] 08/12/2024 1:20 PM EDT Office Visit [address] [phone] Millie Lovell CRNP [address] [place] [address] [place] [address] 02/10/2025 1:40 PM EDT Office Visit [address] [phone] Jewels Greenfield MD [address] [place] [address] [place] [address] Scheduled Procedures Name Priority Associated Diagnoses Date/Ti [...] this encounter Medical Devices Implanted Type Area Spot Remover Device Identifier Shelf Expiration Date Model / Serial / Lot [place] 18 Liq Embolic Agent - [id number] Implanted:Qty: 1 on 12/31/2023 by Hesham Martell MD, PhD [place] [facility] [place] [employer] [place]URO C[place] [id number] 01/24/2026 105-7100-06 0 / / [id number] Description:Lot #[id number] documented as of this encounter Visit Diagnoses [...] Advance Directives occurred with: Patient Care Teams Cash Applications Clerk Relationship Specialty Start Date End Date Jewels Greenfield MD [address] [place] [address] [place] [address] PCP - General Family Medicine 02/18/24 documented as of this encounter
--- OUTSIDE RECORDS SUMMARY | 2024-03-31 08:15 | External Medical Summary | Summary of Care ---
Author Name Unknown Organization [facility] Address [address] [place] [address] Phone [phone] Care Team Providers Care Lead Customer Service Representative Name Role Phone Jewels Greenfield MD Primary Care Provide r Reason for Visit * Reason Onset Date Comments Advice 02/20/2024 Encounter Details Date Type Department Care Team (Late st Contact Info) Description 02/20/2024 Telephone Family Medicine [address] [phone] Jewels Greenfield MD [address] [place] [address] [place] [address] Advice Allergies Active Allergy Reactions Criticality Noted Date Comments Codeine Hives,Itching 06/07/2018 Morphine And Related 01/28/2008 Rituximab 02/08/2024 documented as of this encounter (statuses as of 02/22/2024) Medications Medication Sig Dispensed Refills Start Date [...] Strip 3 05/15/2022 Active OneTouch Delica Plus [id number] USE TO CHECK GLUCOSE ONCE DAILY 100 [...] as of this encounter (statuses as of 02/22/2024) Active Problems Problem Noted Date Diagnosed Date [...] as of this encounter (statuses as of 02/22/2024) Resolved Problems Problem Noted Date Diagnosed Date [...] as of this encounter (statuses as of 02/22/2024) Immunizations Name Administration Dates Next Due Pneumococcal Conjugate Vacci ne, 20-valent (Astbxry64) 05/30/2022 Pneumococcal Polysaccharide PPV23 (Pneumovax) 09/24/2012,07/08/2009(Deferred: Patient [...] encounter Miscellaneous Notes * Telephone Encounter - Preethi Cox LPN - 02/22/2024 12:09 PM EDT Patient states she does have Home health care from [facility] and they just come in to check her Vitals and health she is looking for for someone to come in to clean,cook, take her to apts, and grocery store I advised her to call [employer] see what they advise and she has a friend who has a nurse comes in to help see who she uses, but this will not be covered by insurance she will have to pay out of pocket forthis care. Pt understands and will call around * Telephone Encounter - Jewels Greenfield MD - 02/21/2024 4:10 PM EDT OK for home health aide. She already has Home health ordered. * Telephone Encounter - Preethi Cox LPN - 02/21/2024 3:20 PM EDT Ref Pended if agreeable * Telephone Encounter - Samaria Interiano OSA - 02/20/2024 7:18 AM EDT Patient would like a referral for a home health aide. She is looking for someone to come to her house 3 times a week to help with inspector wire rope; take her grocery shopping and transport her to doctor's appointments. Doesn't have a preference in provider just someone that accepts her insurance. documented in this encounter Plan of Treatment Upcoming Encounters Date Type Department Care Team (Late st Contact Info) Description 02/27/2024 7:00 AM EDT Laboratory Lab [facility]bot[facility] [address], [place] [address] Mvmg, Gml [facility] Home Draw [address] [place] [address] 03/04/2024 1:15 PM EDT Office Visit Hematology/Oncology [employer] [address], [place] [phone] Ralph Barron MD 200 [facility] [place] [place] [address] 03/05/2024 7:00 AM EDT Laboratory Lab [facility] [address] [place] [address] Mvmg, Gml Mobile Home Draw [address], [place] [address] 03/06/2024 6:00 AM EDT Anticoagulation Pharmacy Call Center WB [address] [facility] [place] [address] C[facility]ps, [facility] 58 60 [facility] [place] [address] 03/12/2024 7:00 AM EDT Laboratory Lab [facility]bot[facility] [address], [place] [address] Mvmg, Gml Mobile Home Draw [address], [place] [address] 03/19/2024 7:00 AM EDT Laboratory Lab [facility]bot[facility] [address], [place] [address] Mvmg, Gml Mobile Home Draw [address], [place] [address] 03/26/2024 7:00 AM EDT Laboratory Lab [facility]lebot[facility] [address], [place] [address] Mvmg, Gml Mobile Home Draw [address], [place] [address] 04/02/2024 7:00 AM EDT Laboratory Lab Mobile Phlebot[facility] [address] [facility] [place] [address] Mvmg, Gml Mobile Home Draw [address] [facility] [place] [address] 04/09/2024 7:00 AM EDT Laboratory Lab [facility]bot[facility] [address] [facility] [place] [address] Mvmg, Gml Mobile Home Draw [address] [facility] [place] [address] 04/16/2024 7:00 AM EDT Laboratory Lab [facility] [address] [facility] [place] [address] Mvmg, Gml Mobile Home Draw [address] [facility] [place] [address] 04/23/2024 7:00 AM EDT Laboratory Lab [facility]bot[facility] [address] [facility] [place] [address] Mvmg, Gml Mobile Home Draw [address] [facility] [place] [address] 04/30/2024 7:00 AM EDT Laboratory Lab [facility]bot[facility] [address] [facility] [place] [address] Mvmg, Gml Mobile Home Draw [address] [facility] [place] [address] 05/07/2024 7:00 AM EDT Laboratory Lab [facility]bot[facility] [address] [facility] [place] [address] Mvmg, Gml Mobile Home Draw [address] [facility] [place] [address] 05/14/2024 7:00 AM EDT Laboratory Lab [facility]lebot[facility] [address] [facility] [place] [address] Mvmg, Gml Mobile Home Draw [address] [facility] [place] [address] 05/21/2024 7:00 AM EDT Laboratory Lab [facility]bot[facility] [address] [facility] [place] [address] Mvmg, Gml Mobile Home Draw [address] [place] [address] 05/28/2024 7:00 AM EDT Laboratory Lab [facility] [address] [place] [address] Mvmg, Gml Mobile Home Draw [address] [facility] [place] [address] 06/04/2024 7:00 AM EDT Laboratory Lab [facility]bot[facility] [address] [place] [address] Mvmg, Gml Mobile Home Draw [address] [employer] [place] [address] 06/11/2024 7:00 AM EDT Laboratory Lab [facility]bot[facility] [address] [place] [address] Mvmg, Gml Mobile Home Draw [address] [employer] [place] [address] 06/18/2024 7:00 AM EDT Laboratory Lab [facility] [address] [place] [address] Mvmg, Gml Mobile Home Draw [address] [facility] [place] [address] 06/25/2024 7:00 AM EDT Laboratory Lab [facility]bot[facility] [address] [facility] [place] [address] Mvmg, Gml Mobile Home Draw [address] [facility] [place] [address] 08/12/2024 1:20 PM EDT [address] [phone] Millie Lovell [address] [place] [address] 02/10/2025 1:40 PM EDT Office Visit [place] [address] [place] [phone] Jewels Greenfield MD [address] [place] [address] [place] [address] Scheduled Procedures Name Priority Associated Diagnoses Date/Ti [...] this encounter Medical Devices Implanted Type Area Continuing Education Instructor Device Identifier Shelf Expiration Date Model / Serial / Lot [place] 18 Liq Embolic Agent - [id number] Implanted:Qty: 1 on 12/31/2023 by Hesham Martell MD, PhD at [place] [facility] [place] [employer] : NEURO CARE [id number] 01/24/2026 105-7100-06 0 / / [id number] Description:[id number] #[id number] documented as of this encounter Advance Directives [...] Advance Directives occurred with: Patient Care Teams Lead Customer Service Representative Relationship Specialty Start Date End Date Jewels Greenfield MD [address] [place] [address] [place] [address] PCP - General Family Medicine 02/18/24 documented as of this encounter
--- OUTSIDE RECORDS SUMMARY | 2024-03-31 08:15 | External Medical Summary ---
Author Name Unknown Address Unknown Organization K01:[facility] [place] - [facility] [place] [id number] Laboratory Report Ordering Provider Test Date Status SHERLYN ROBLES 02/20/2024 11:49:00 Final Observation Date Value Abnormality Reference (Units ) Status WBC, Total 02/20/2024 11:49:00 7.90 4.00-10.80 (K/uL) Final RBC 02/20/2024 11:49:00 4.18 3.85-5.15 (M/uL) Final Hemoglobin 02/20/2024 11:49:00 13.4 12.0-15.3 (g/dL) Final HCT 02/20/2024 11:49:00 40.4 36.0-45.2 (%) Final MCV 02/20/2024 11:49:00 96.7 81.5-97.5 (fL) Final MCH 02/20/2024 11:49:00 32.1 27.0-34.0 (pg) Final MCHC 02/20/2024 11:49:00 33.2 32.0-36.0 (g/dL) Final RDW 02/20/2024 11:49:00 16.8 11.5-15.5 (%) Final Platelets 02/20/2024 11:49:00 75 Below low normal 140-400 (K/uL) Final MPV 02/20/2024 11:49:00 11.7 6.6-11.1 (fL) Final Nucleated erythrocytes/100 leukocytes [Ratio] in Blood by Automated count 02/20/2024 11:49:00 0 <=0 (/100 WBCs) Final Performing Location [facility] [place] - [address] [place] [id number]
--- OUTSIDE RECORDS SUMMARY | 2024-03-31 08:15 | External Medical Summary | Summary of Care ---
Author Name Unknown Organization [facility] Address [address] [place] [address] Phone [phone] Care Team Providers Care Water Quality Manager Name Role Phone Jewels Greenfield MD Primary Care Provide r Reason for Visit * Reason Onset Date Comments Test Results Lab 02/19/2024 Encounter Details Date Type Department Care Team ([facility] st Contact Info) Description 02/19/2024 Telephone Hematology/Oncology [facility] [place] [address] [facility] [place] [phone] [facility] [address] Test Results Lab Allergies Active Allergy Reactions [...] Strip 3 05/15/2022 Active OneTouch Delica Plus [id number] USE TO CHECK GLUCOSE ONCE DAILY 100 [...] Next Due Pneumococcal Conjugate Vacci ne, 20-valent ([id number]) 05/30/2022 Pneumococcal Polysaccharide PPV23 (Pneumovax) 09/24/2012,07/08/2009(Deferred: Patient [...] encounter Miscellaneous Notes * Telephone Encounter - Ralph Barron MD - 02/21/2024 12:04 PM EDT I agree, we should cut down prednisone by 10 mg every weekly. * Telephone Encounter - Juni Zelaya RN [...] RN - 02/19/2024 1:[address] Barron- pt to decrease prednisone by 10mg each week if labs are stable. Labs completed 02/12, please advise. Thank you. documented in this encounter Plan of Treatment Upcoming Encounters Date Type Department Care Team (Late st Contact Info) Description 02/27/2024 7:00 AM EDT Laboratory Lab [facility] [address] [place] [address] [address] [facility] [address] [place] [address] [address] 03/04/2024 1:15 PM EDT Office Visit Hematology/Oncology State Krysta Charlton [address] [place] [address] [place] [phone] Ralph Barron MD 200 [facility] [place] [address] 03/05/2024 7:00 AM EDT Laboratory Lab [facility] [address] [place] [address] [facility], [facility] [address] [place] [address] [address] 03/06/2024 6:00 AM EDT Anticoagulation Pharmacy Call Center WB 58-60 [facility] [place] [address] [address] [address] [facility] [address] 03/12/2024 7:00 AM EDT Laboratory Lab [facility]bot[facility] [address] [place] [address] [address] [facility], [facility] [address] [address] 03/19/2024 7:00 AM EDT Laboratory Lab [facility]bot[facility] [address] [place] [address] [address] M[facility], [facility] [address] [address] 03/26/2024 7:00 AM EDT Laboratory Lab [facility]lebot[facility] [address] [place] [address] M[facility], [facility] [address] [place] [address] 04/02/2024 7:00 AM EDT Laboratory Lab [facility] [address] [place] [address] M[facility], [facility] [address] [place] [address] 04/09/2024 7:00 AM EDT Laboratory Lab [facility]bot[facility] [address] [place] [address] M[facility], [facility] [address] [place] [address] 04/16/2024 7:00 AM EDT Laboratory Lab [facility]lebot[facility] [address] [place] [address] M[facility], [facility] [address] [place] [address] 04/23/2024 7:00 AM EDT Laboratory Lab [facility] [address] [place] [address] Mvmg, [facility] [address] [place] [address] 04/30/2024 7:00 AM EDT Laboratory Lab [facility]lebot[facility] [address] [place] [address] M[facility], [facility] [address] [place] [address] 05/07/2024 7:00 AM EDT Laboratory Lab [facility]lebot[facility] [address] [place] [address] M[facility], [facility] 2520 [facility] [place] [address] 05/14/2024 7:00 AM EDT Laboratory Lab [facility] Phlebot[facility] [address] [place] [address] M[facility], [facility] [address] [facility] [place] [address] 05/21/2024 7:00 AM EDT Laboratory Lab [facility] Phlebotomy [facility] [address] [place] [address] Mv[facility], [facility] [address] [facility] [place] [address] 05/28/2024 7:00 AM EDT Laboratory Lab Mobile Phlebotomy [facility] [address] [facility] [place] [address] Mv[facility], [facility] [address] [place] [address] 06/04/2024 7:00 AM EDT Laboratory Lab Mobile Phlebotomy [facility] [address] [place] [address] Mvmg, [facility] [address] [place] [address] 06/11/2024 7:00 AM EDT Laboratory Lab Mobile Phlebotomy [facility] [address] [place] [address] M[facility], [facility] 2520 [facility] [place] [address] 06/18/2024 7:00 AM EDT Laboratory Lab Mobile Phlebotomy [facility] [address] [place] [address] Mv[facility], [facility] [address] [place] [address] 06/25/2024 7:00 AM EDT Laboratory Lab [facility] Phlebot[facility] [address] [facility] [place] [address] Mvmg, [facility] [address] [place] [address] 08/12/2024 1:20 PM EDT Office Visit Family [address] [phone] Millie Lovell CRNP [address] [place] [address] [place] [address] 02/10/2025 1:40 PM EDT Office Visit Family Medicine [address] [place] [phone] Jewels Greenfield MD [address] [place] [address] [place] [address] Scheduled Procedures Name Priority Associated Diagnoses Date/Ti [...] this encounter Medical Devices Implanted Type Area Clinical Specialist Device Identifier Shelf Expiration Date Model / Serial / Lot Henrik 18 Liq Embolic Agent - [id number] Implanted:Qty: 1 on 12/31/2023 by Hesham Martell MD, PhD at [facility] [employer] : NEURO CARE [id number] 01/24/2026 105-7100-06 0 / / [id number] Description:Lot #[id number] documented as of this encounter Advance Directives [...] Advance Directives occurred with: Patient Care Teams Water Quality Manager Relationship Specialty Start Date End Date Jewels Greenfield MD [address] [place] [address] [place] [address] PCP - General Family Medicine 02/18/24 documented as of this encounter
--- OUTSIDE RECORDS SUMMARY | 2024-03-31 08:15 | External Medical Summary | Summary of Care ---
Author Name Unknown Organization [facility] Address [address] [place] [address] Phone [phone] Care Team Providers Care Leather Scraper Name Role Phone Unavailable Primary Care Provider Unavailabl e Reason for Visit * Episode Based Medications (Routine) - Closed Specialty Diagnoses / Procedures Referred By Contac t Referred To Contact Diagnoses Acute ITP (HCC) Idiopathic thrombocytopenic purpura (ITP) (HCC) Procedures ND INJECTION, RITUXIMAB-PVVR, BIOSIMILAR, (RUXIENCE), 10 MG Ralph Barron MD 200 [place] [address] Anc Hem/Onc [facility] 200 [place] [address] Referral ID Status Reason Start Date Expiration Date Visits Re quested Visits Authorized [id number] Closed 12/19/2023 03/18/2024 4 4 Encounter Details Date Type Department Care Team (Latest Contact Info) Description 01/23/2024 10:30 AM EDT Hem/Onc Treatment Hematology Oncology [place] [address] [address] [place], [place] [phone] [place], [facility] 10 Hem/Onc [address] [place] [id number] Acute ITP (HCC)*; Idiopathic thrombocytopenic purpura (ITP) [...] Strip 3 2 Active OneTouch Delica Plus [id number] USE TO CHECK GLUCOSE ONCE DAILY 100 Each 3 2 Active ChlorogenTouch Verio Flex System w/Device KitIndications: Hypoglycemia Use [...] Next Due Pneumococcal Conjugate Vacci ne, 20-valent ([id number]) 05/30/2022 Pneumococcal Polysaccharide PPV23 (Pneumovax) 09/24/2012,07/08/2009(Deferred: Patient [...] EDT Laboratory Lab Mobile Phlebotomy [facility] [address] [place] [address] [facility], [facility] [address] [employer] [place] [address] 03/04/2024 1:15 PM EDT [facility] [place] [phone] Ralph Barron MD 200 [facility] [place] [address] 03/05/2024 7:00 AM EDT Laboratory Lab Mobile Phlebotomy [facility] [address] [place] [address] M[facility], [facility] [address] [employer] [place] [address] 03/06/2024 6:00 AM EDT Anticoagulation Pharmacy Call Center WB [address] [place] [address] [facility], [facility] 58 60 [facility] [place] [address] 03/12/2024 7:00 AM EDT Laboratory Lab Mobile Phlebotomy [facility] [address] [place] [address] Mvmg, [facility] [address] [place] [address] 03/19/2024 7:00 AM EDT Laboratory Lab Mobile Phlebotomy [facility] [address] [place] [address] Mvmg, [facility] [address] [place] [address] 03/26/2024 7:00 AM EDT Laboratory Lab [facility] Phlebot[facility] [address] [place] [address] Mvmg, [facility] [address] [place] [address] 04/02/2024 7:00 AM EDT Laboratory Lab Mobile Phlebotomy [facility] [address] [place] [address] Mvmg, [facility] [address] [place] [address] 04/09/2024 7:00 AM EDT Laboratory Lab Mobile Phlebotomy [facility] [address] [place] [address] Mvmg, [facility] [address] [place] [address] 04/16/2024 7:00 AM EDT Laboratory Lab [facility]lebot[facility] [address] [place] [address] Mvmg, [facility] [address] [place] [address] 04/23/2024 7:00 AM EDT Laboratory Lab Mobile Phlebotomy [facility] [address] [place] [address] Mvmg, [facility] [address] [place] [address] 04/30/2024 7:00 AM EDT Laboratory Lab Mobile Phlebotomy [facility] [address] [place] [address] Mvmg, [facility] [address]20 [place] [address] 05/07/2024 7:00 AM EDT Laboratory Lab Mobile Phlebotomy [facility] [address] [place] [address] Mvmg, [facility] [address] [place] [address] 05/14/2024 7:00 AM EDT Laboratory Lab Mobile Phlebotomy [facility] [address] [place] [address] Mv[facility], [facility] [address] [place] [address] 05/21/2024 7:00 AM EDT Laboratory Lab Mobile Phlebotomy [facility] [address] [place] [address] Mvmg, [facility] Draw [address] [place] [address] 05/28/2024 7:00 AM EDT Laboratory Lab Mobile Phlebotomy [facility] [address] [place] [address] Mvmg, [facility] [address] [place] [address] 06/04/2024 7:00 AM EDT Laboratory Lab Mobile Phlebotomy [facility] [address] [place] [address] Mvmg, [facility] [address] [place] [address] 06/11/2024 7:00 AM EDT Laboratory Lab Mobile Phlebotomy [facility] [address] [place] [address] Mvmg, [facility] [address] [place] [address] 06/18/2024 7:00 AM EDT Laboratory Lab Mobile Phlebotomy [facility] [address] [place] [address] Mvmg, [facility] [address] [place] [address] 06/25/2024 7:00 AM EDT Laboratory Lab Mobile Phlebotomy [facility] [address] [facility] [place] [address] M[facility], [facility] 0 [facility] [place] [address] 08/12/2024 1:20 PM EDT Office Visit [address] [phone] Millie Lovell CRNP [address] [place] [address] [place] [address] 02/10/2025 1:40 PM EDT Office Visit [address] [place] [phone] Jewels Greenfield MD [address] [place] [address] [place] [address] Scheduled Procedures Name Priority Associated Diagnoses Date/Ti [...] this encounter Medical Devices Implanted Type Area Concrete Stone Fabricating Supervisor Device Identifier Shelf Expiration Date Model / Serial / Lot Dodge 18 Liq Embolic Agent - [id number] Implanted:Qty: 1 on 12/31/2023 by Hesham Martell MD, PhD [place] [facility] [employer] [place] NEURO CARE [id number] 01/24/2026 105-7100-06 0 / / [id number] Description:Lot #[id number] documented as of this encounter Visit Diagnoses [...]
--- OUTSIDE RECORDS SUMMARY | 2024-03-31 08:15 | External Medical Summary ---
Author Name Unknown Address Unknown Organization K01:[facility] [place] - [address] [facility] [address] Laboratory Report Ordering Provider Test Date Status SHERLYN ROBLES 02/20/2024 11:49:00 Final Observation Date Value Abnormality Reference (Units ) Status BUN 02/20/2024 11:49:00 21 Above high normal 6-20 (mg/dL) Final Creatinine 02/20/2024 11:49:00 1.0 0.5-1.0 (mg/dL) Final Glomerular filtration rate/1.73 sq M.predicted [Volume Rate/Area] in Serum, Plasma or Blood by Creatinine-based formula (CKD-EPI) 02/20/2024 11:49:00 65 >=60 (mL/min) Final eGFR is calculated based on the CKD-EPI 2020 equation Sodium 02/20/2024 11:49:00 137 135-146 (m mol/L) Final Potassium 02/20/2024 11:49:00 3.7 3.5-5.1 (m mol/L) Final Cl 02/20/2024 11:49:00 104 98-107 (mm ol/L) Final CO2 02/20/2024 11:49:00 21 Below low normal 22- 32 (mmol/L) Final Anion gap 02/20/2024 11:49:00 12 7-15 (mmol /L) Final Glucose 02/20/2024 11:49:00 112 70-120 (mg /dL) Final Albumin 02/20/2024 11:49:00 4.3 3.8-5.0 (g /dL) Final AST (Aspartate aminotransferase) 02/20/2024 11:49:00 25 10-35 (U/L) Fin al Result may be falsely elevat ed due to hemolysis. Alk Phos 02/20/2024 11:49:00 61 35-130 (U/ L) Final Bilirubin, Total 02/20/2024 11:49:00 0.8 <=1 .2 (mg/dL) Final Calcium 02/20/2024 11:49:00 9.5 8.4-10.2 ( mg/dL) Final Protein 02/20/2024 11:49:00 7.0 6.0-8.3 (g /dL) Final ALT (Alanine aminotransferase) 02/20/2024 11:49:00 31 10-35 (U/L) Final Performing Location [facility] [place] - [address] [facility] [address]
--- OUTSIDE RECORDS SUMMARY | 2024-03-31 08:15 | External Medical Summary | Summary of Care ---
Author Name Unknown Organization [facility] Address [address] [place] [address] Phone [phone] Care Team Providers Care Clerical Support Specialist Name Role Phone Jewels Greenfield MD Primary Care Provide r Encounter Details Date Type Department Care Team (Late st Contact Info) Description 02/14/2024 Orders Only Neurosurgery, [place] [address], [place] [phone] Hesham Martell MD, PhD [address], [place] [phone] Allergies Active Allergy Reactions Criticality Noted Date Comments Codeine Hives,Itching 06/07/2018 Morphine And Related 01/28/2008 Rituximab 02/08/2024 documented as of this encounter (statuses as of 02/20/2024) Medications Medication Sig Dispensed Refills Start Date [...] Strip 3 05/15/2022 Active OneTouch Delica Plus Oksipp27C USE TO CHECK GLUCOSE ONCE DAILY 100 [...] as of this encounter (statuses as of 02/20/2024) Active Problems Problem Noted Date Diagnosed Date [...] as of this encounter (statuses as of 02/20/2024) Resolved Problems Problem Noted Date Diagnosed Date [...] as of this encounter (statuses as of 02/20/2024) Immunizations Name Administration Dates Next Due Pneumococcal Conjugate Vacci ne, 20-valent ([id number]) 05/30/2022 Pneumococcal Polysaccharide PPV23 (Pneumovax) 09/24/2012,07/08/2009(Deferred: Patient [...] Team (Late st Contact Info) Description 02/20/2024 6:00 PM EDT Anticoagulation Pharmacy Call Center WB [address] [place] [address] [facility], [facility] 58 60 [facility] [place] [address] 02/27/2024 7:00 AM EDT Laboratory Lab Mobile Phlebotomy [facility] [address] [address] Mvmg, [facility] [address] [place] [address] 03/04/2024 1:15 PM EDT Office Visit Hematology/Oncology State Krysta Charl[place] [address] [place] [phone] Ralph Barron MD 200 [facility] [place] [address] 03/05/2024 7:00 AM EDT Laboratory Lab Mobile Phlebotomy [facility] [address] [place] [address] Mvmg, [facility] [address] [place] [address] 03/12/2024 7:00 AM EDT Laboratory Lab Mobile Phlebotomy [facility] [address] [place] [address] Mvmg, [facility] Draw [address] [place] [address] 03/19/2024 7:00 AM EDT Laboratory Lab Mobile Phlebotomy [facility] [address] [place] [address] Mvmg, [facility] [address] [place] [address] [address] 03/26/2024 7:00 AM EDT Laboratory Lab Mobile Phlebotomy [facility] [address] [place] [address] [address] Mvmg, [facility] [address] [place] [address] [address] 04/02/2024 7:00 AM EDT Laboratory Lab Mobile Phlebotomy [facility] [address] [place] [address] Mvmg, Gml [facility] Draw [address] [place] [address] 04/09/2024 7:00 AM EDT Laboratory Lab Mobile Phlebotomy [facility] [address] [place] [address] Mvmg, Gml [facility] Draw [address] [place] [address] 04/16/2024 7:00 AM EDT Laboratory Lab Mobile Phlebot[facility] [address] [place] [address] Mvmg, Gml [facility] Draw [address] [place] [address] 04/23/2024 7:00 AM EDT Laboratory Lab [facility] Phlebot[facility] [address] [place] [address] Mvmg, Gml [facility] Draw [address] [place] [address] 04/30/2024 7:00 AM EDT Laboratory Lab Mobile Phlebotomy [facility] [address] [place] [address] Mvmg, Gml [facility] Draw [address] [place] [address] 05/07/2024 7:00 AM EDT Laboratory Lab Mobile Phlebotomy [facility] [address] [place] [address] Mvmg, Gml [facility] Draw [address] [place] [address] 05/14/2024 7:00 AM EDT Laboratory Lab Mobile Phlebotomy [facility] [address] [place] [address] Mvmg, Gml [facility] Draw [address] [place] [address] 05/21/2024 7:00 AM EDT Laboratory Lab Mobile Phlebotomy [facility] [address] [place] [address] Mvmg, Gml [facility] Draw [address] [place] [address] 05/28/2024 7:00 AM EDT Laboratory Lab Mobile Phlebotomy [facility] [address] [facility] [place] [address] Mvmg, Gml Mobile Home Draw [address] [place] [address] 06/04/2024 7:00 AM EDT Laboratory Lab Mobile Phlebotomy [facility] [address] [place] [address] Mvmg, G[facility] Draw [address] [place] [address] 06/11/2024 7:00 AM EDT Laboratory Lab Mobile Phlebotomy [facility] [address] [place] [address] Mvmg, Gml [facility] Draw [address] [place] [address] 06/18/2024 7:00 AM EDT Laboratory Lab Mobile Phlebotomy [facility] [address] [place] [address] Mvmg, Gml [facility] Draw [address] [place] [address] 06/25/2024 7:00 AM EDT Laboratory Lab Mobile Phlebotomy [facility] [address] [place] [address] Mvmg, Gml [facility] Draw [address] [place] [address] 08/12/2024 1:20 PM EDT Office Visit [address] [place] [phone] Millie Lovell[address] [place] [address] 02/10/2025 1:40 PM EDT Office Visit [address] [place] [phone] Jewels Greenfield MD [address] [place] [address] [place]on[place] [phone] Scheduled Procedures Name Priority Associated Diagnoses Date/Ti [...] 11/05, 10/04/2023, Additional history exists Diabetes Screening 02/12/2027 02/13/2024, 0 02/01/2024, 01/24/2024, Additional history exists Lipid Panel 10/04/2028 10/04/2023, [...] this encounter Medical Devices Implanted Type Area Relationship Mgr Device Identifier Shelf Expiration Date Model / Serial / Lot Henrik 18 Liq Embolic Agent - [id number] Implanted:Qty: 1 on 12/31/2023 by Hesham Martell MD, PhD at [facility] [employer] : NEURO CARE [id number] 01/24/2026 105-7100-06 0 / / [id number] Description:Lot #[id number] documented as of this encounter Procedures Procedure Name Priority Date/Time Associated Diagnosis Comments RADIOLOGY EXAM - CT (IMAGES ONLY, NO REPORT) Routine 02/14/2024 11:15 AM EDT documented in this encounter Results * RADIOLOGY EXAM - CT (IMAGES ONLY, NO REPORT) (02/14/2024 11:15 AM EDT) 02/14/2024 11:1 5 AM EDT Narrative Scheduling, Silent - 02/20/2024 11:41 AM EDT This is an imaging study not interpreted or resulted by a [email or web address] or [employer] contracted radiologist. Hesham Martell MD, PhD RAD CT documented in this encounter Advance Directives Latest [...] Advance Directives occurred with: Patient Care Teams Clerical Support Specialist Relationship Specialty Start Date End Date Jewels Greenfield MD [address] [place] [address] [place] [address] PCP - General Family Medicine 02/18/24 documented as of this encounter
--- OUTSIDE RECORDS SUMMARY | 2024-03-31 08:15 | External Medical Summary | Summary of Care ---
Author Name Unknown Organization [facility] Address [address] [place] [address] Phone [phone] Care Team Providers Care Transportation Planning Technician Name Role Phone Unavailable Primary Care Provider Unavailabl e Reason for Visit * Episode Based Medications (Routine) - Closed Specialty Diagnoses / Procedures Referred By Contac t Referred To Contact Diagnoses Acute ITP (HCC) Idiopathic thrombocytopenic purpura (ITP) (HCC) Procedures WI INJECTION, RITUXIMAB-PVVR, BIOSIMILAR, (RUXIENCE), 10 MG Ralph Barron MD 200 [place] [address] Anc Hem/Onc [facility] 200 [place] [address] Referral ID Status Reason Start Date Expiration Date Visits Re quested Visits Authorized [id number] Closed 12/19/2023 03/18/2024 4 4 Encounter Details Date Type Department Care Team (Latest Contact Info) Description 01/23/2024 10:30 AM EDT Hem/Onc Treatment Hematology Oncology [place] [address] [place], [place] [phone] [place], [facility] 10 Hem/Onc [address] [place] [address] [phone] Acute ITP (HCC)*; Idiopathic thrombocytopenic purpura (ITP) [...] Strip 3 2 Active OneTouch Delica Plus [id number] USE TO CHECK GLUCOSE ONCE DAILY 100 Each 3 2 Active Apama MedicalTouch Verio Flex System w/Device KitIndications: Hypoglycemia Use [...] Next Due Pneumococcal Conjugate Vacci ne, 20-valent (Rspvfak21) 05/30/2022 Pneumococcal Polysaccharide PPV23 (Pneumovax) 09/24/2012,07/08/2009(Deferred: Patient [...] EDT Laboratory Lab Mobile Phlebotomy MVMG [address] [place] [address] Mvmg, Gml Mobile Home Draw 2520 [address] [place] [address] 03/04/2024 1:15 PM EDT [facility] 200 [facility] [place] [phone] Ralph Barron MD 200 [facility] [place] [address] 03/05/2024 7:00 AM EDT Laboratory Lab Mobile Phlebotomy MVM[facility] 2520 [address] [place] [address] Mvmg, Gml Mobile Home Draw 2520 CallMD [place] [address] 03/06/2024 6:00 AM EDT Anticoagulation Pharmacy Call Center WB [address] [place] Valentin [address] [facility], [facility] 58 60 [facility] [place]in [address] 03/12/2024 7:00 AM EDT Laboratory Lab Mobile Phlebotomy MVMG 2520 [facility] [place] [address] Mvmg, Gml Mobile Home Draw 2520 [facility] [place] [address] 03/19/2024 7:00 AM EDT Laboratory Lab Mobile Phlebotomy MVMG 2520 [facility] [place] [address] Mvmg, Gml Mobile Home Draw 2520 [facility] [place] [address] 03/26/2024 7:00 AM EDT Laboratory Lab Mobile Phlebotomy MVMG 2520 [facility] [place] [address] Mvmg, Gml Mobile Home Draw 2520 [facility] [place] [address] 04/02/2024 7:00 AM EDT Laboratory Lab Mobile Phlebotomy MVMG 2520 [facility] [place] [address] Mvmg, Gml Mobile Home Draw 2520 [facility] [place] [address] 04/09/2024 7:00 AM EDT Laboratory Lab Mobile Phlebotomy MVMG 2520 [facility] [place] [address] Mvmg, Gml Mobile Home Draw 2520 [facility] [place] [address] 04/16/2024 7:00 AM EDT Laboratory Lab Mobile Phlebotomy MVMG 2520 [facility] [place] [address] Mvmg, Gml Mobile Home Draw 2520 [facility] [place] [address] 04/23/2024 7:00 AM EDT Laboratory Lab Mobile Phlebotomy MVMG 2520 [facility] [place] [address] Mvmg, Gml Mobile Home Draw 2520 [facility] [place] [address] 04/30/2024 7:00 AM EDT Laboratory Lab Mobile Phlebotomy MVM[facility] 2520 [facility] [place] [address] Mvmg, Gml Mobile Home Draw 2520 [place] [address] 05/07/2024 7:00 AM EDT Laboratory Lab Mobile Phlebotomy MVMG 2520 [facility] [place] [address] Mvmg, Gml Mobile Home Draw 2520 [place] [address] 05/14/2024 7:00 AM EDT Laboratory Lab Mobile Phlebotomy MVMG [address] [place] [address] Mvmg, Gml Mobile Home Draw 2520 [place] [address] 05/21/2024 7:00 AM EDT Laboratory Lab Mobile Phlebotomy MVMG [address] [place] [address] Mvmg, Gml Mobile Home Draw 2520 [place] [address] 05/28/2024 7:00 AM EDT Laboratory Lab Mobile Phlebotomy MVMG [address] [place] [address] Mvmg, Gml Mobile Home Draw 2520 [facility] [place] [address] 06/04/2024 7:00 AM EDT Laboratory Lab Mobile Phlebotomy MVMG 2520 [place] [address] Mvmg, Gml Mobile Home Draw 2520 [place] [address] 06/11/2024 7:00 AM EDT Laboratory Lab Mobile Phlebotomy MVMG [address] [place] [address] Mvmg, Gml Mobile Home Draw 2520 [place] [address] 06/18/2024 7:00 AM EDT Laboratory Lab Mobile Phlebotomy MVMG 2520 [place] [address] Mvmg, Gml Mobile Home Draw [address] [place] [address] 06/25/2024 7:00 AM EDT Laboratory Lab Mobile Phlebotomy MVMG 4810 [facility] [place] Jasmine [address] Mvmg, Gml Mobile Home Draw 0 [facility] [place] Jasmine [address] 08/12/2024 1:20 PM EDT Office Visit [address] [phone] Millie Lovell CRNP [address] [place] [address] [place]ccon[place] [address] 02/10/2025 1:40 PM EDT Office Visit [address] [place] [phone] Jewels Greenfield MD [address] [place] [address] [place] [address] Scheduled Procedures Name Priority Associated Diagnoses Date/Ti [...] this encounter Medical Devices Implanted Type Area Software Developer Intern Device Identifier Shelf Expiration Date Model / Serial / Lot [place] 18 Liq Embolic Agent - [id number] Implanted:Qty: 1 on 12/31/2023 by Hesham Martell MD, PhD at [place] [facility] [employer] : NEURO CARE [id number] 01/24/2026 105-7100-06 0 / / [id number] Description:Lot #[id number] documented as of this encounter Visit Diagnoses [...]
--- OUTSIDE RECORDS SUMMARY | 2024-03-31 08:15 | External Medical Summary | Summary of Care ---
Author Name Unknown Organization [facility] Address [address] [place] [address] Phone [phone] Care Team Providers Care Vice President Regulatory Name Role Phone Unavailable Primary Care Provider Unavailabl e Reason for Visit * Episode Based Medications (Routine) - Closed Specialty Diagnoses / Procedures Referred By Contac t Referred To Contact Diagnoses Acute ITP (HCC) Idiopathic thrombocytopenic purpura (ITP) (HCC) Procedures MA INJECTION, RITUXIMAB-PVVR, BIOSIMILAR, (RUXIENCE), 10 MG Ralph Barron MD 200 [place] [address] Anc Hem/Onc [facility] 200 [place] [address] Referral ID Status Reason Start Date Expiration Date Visits Re quested Visits Authorized [id number] Closed 12/19/2023 03/18/2024 4 4 Encounter Details Date Type Department Care Team (Latest Contact Info) Description 01/23/2024 10:30 AM EDT Hem/Onc Treatment Hematology Oncology [place] [address] [place], [place] [phone] [place], [facility] 10 Hem/Onc [address] [place] [address] [phone] Acute ITP (HCC)*; Idiopathic thrombocytopenic purpura (ITP) [...] Strip 3 2 Active OneTouch Delica Plus Coypot21S USE TO CHECK GLUCOSE ONCE DAILY 100 Each 3 2 Active NPRTouch Verio Flex System w/Device KitIndications: Hypoglycemia Use [...] Next Due Pneumococcal Conjugate Vacci ne, 20-valent (Tkiicll19) 05/30/2022 Pneumococcal Polysaccharide PPV23 (Pneumovax) 09/24/2012,07/08/2009(Deferred: Patient [...] EDT Laboratory Lab Mobile Phlebotomy MVM[facility] [address] [place] [address] Mvmg, Gml Mobile Home Draw 2520 [place] [address] 03/04/2024 1:15 PM EDT Office [facility] 200 [facility] [place] [phone] Ralph Barron MD 200 [facility] [place] [address] 03/05/2024 7:00 AM EDT Laboratory Lab Mobile Phlebotomy MVM[facility] [address] [place] [place] [address] Mvmg, Gml Mobile Home Draw 2520 [place] [place] [address] 03/06/2024 6:00 AM EDT Anticoagulation Pharmacy Call Center WB [address] [place]in [address] [facility] 58 60 [facility] [place] Valentin [address] 03/12/2024 7:00 AM EDT Laboratory Lab Mobile Phlebotomy MVMG 2520 [facility] [place] [address] Mvmg, Gml Mobile Home Draw 2520 [facility] [place] [address] 03/19/2024 7:00 AM EDT Laboratory Lab Mobile Phlebotomy MVMG 2520 [facility] [place] [address] Mvmg, Gml Mobile Home Draw 2520 [facility] [place] [address] 03/26/2024 7:00 AM EDT Laboratory Lab Mobile Phlebotomy MVM[facility] 2520 [facility] [place] [address] Mvmg, Gml Mobile Home Draw 2520 [facility] [place] [address] 04/02/2024 7:00 AM EDT Laboratory Lab Mobile Phlebotomy MVMG 2520 [facility] [place] [address] Mvmg, Gml Mobile Home Draw 2520 [facility] [place] [address] 04/09/2024 7:00 AM EDT Laboratory Lab Mobile Phlebotomy MVMG 2520 [facility] [place] [address] Mvmg, Gml Mobile Home Draw 2520 [facility] [place] [address] 04/16/2024 7:00 AM EDT Laboratory Lab Mobile Phlebotomy MVM[facility] 2520 [facility] [place] [address] Mvmg, Gml Mobile Home Draw 2520 [facility] [place] [address] 04/23/2024 7:00 AM EDT Laboratory Lab Mobile Phlebotomy MVM[facility] 2520 [facility] [place] [address] Mvmg, Gml Mobile Home Draw 2520 [facility] [place] [address] 04/30/2024 7:00 AM EDT Laboratory Lab Mobile Phlebotomy MVMG 2520 [facility] [place] [address] Mvmg, Gml Mobile Home Draw 2520 [facility] [place] [address] 05/07/2024 7:00 AM EDT Laboratory Lab Mobile Phlebotomy MVMG 2520 [facility] [place] [address] Mvmg, Gml Mobile Home Draw 2520 [facility] [place] [address] 05/14/2024 7:00 AM EDT Laboratory Lab Mobile Phlebotomy MVMG [address] [place] [address] Mvmg, Gml Mobile Home Draw 2520 [facility] [place] [address] 05/21/2024 7:00 AM EDT Laboratory Lab Mobile Phlebotomy MVMG [address] [place] [address] Mvmg, Gml Mobile Home Draw [address] [place] [address] 05/28/2024 7:00 AM EDT Laboratory Lab Mobile Phlebotomy MVMG [address] [place] [address] Mvmg, Gml Mobile Home Draw 2520 [facility] [place] [address] 06/04/2024 7:00 AM EDT Laboratory Lab Mobile Phlebotomy MVMG 2520 [facility] [place] [address] Mvmg, Gml Mobile Home Draw [address] [place] [address] 06/11/2024 7:00 AM EDT Laboratory Lab Mobile Phlebotomy MVMG [address] [place] [address] Mvmg, Gml Mobile Home Draw 25[address] [place] [address] 06/18/2024 7:00 AM EDT Laboratory Lab Mobile Phlebotomy MVMG 2520 [facility] [place] [address] Mvmg, Gml Mobile Home Draw [address] [place] [address] 06/25/2024 7:00 AM EDT Laboratory Lab Mobile Phlebotomy MVMG 7920 [facility] [place] Jasmine [address] Mvmg, Gml Mobile Home Draw 0 [facility] [place] J[place] [address] 08/12/2024 1:20 PM EDT Office Visit [address] [phone] Millie Lovell CRNP [address] [place] [address] [place] Mcconnell [address] 02/10/2025 1:40 PM EDT Office Visit [address] [place] [phone] Jewels Greenfield MD [address] [place] [address] [place] M[place]on[place] [address] Scheduled Procedures Name Priority Associated Diagnoses Date/Ti [...] this encounter Medical Devices Implanted Type Area Poly Packer And Heat Sealer Device Identifier Shelf Expiration Date Model / Serial / Lot [place] 18 Liq Embolic Agent - [id number] Implanted:Qty: 1 on 12/31/2023 by Hesham Martell MD, PhD at [place] [facility] [employer] : NEURO CARE [id number] 01/24/2026 105-7100-06 0 / / [id number] Description:Lot #[id number] documented as of this encounter Visit Diagnoses [...]
--- OUTSIDE RECORDS SUMMARY | 2024-03-31 08:15 | External Medical Summary ---
Author Name Unknown Address Unknown Organization K01:LABORATORY [facility] - [address] [facility] [address] Laboratory Report Ordering Provider Test Date Status DEYSI RIVERA 02/20/2024 11:49:00 Final Observation Date Value Abnormality Reference (Units ) Status LMW Heparin [Units/volume] in Platelet poor plasma by Chromogenic method 02/20/2024 11:49:00 0.75 Above high normal <0.10 (IU/mL) Final Low molecular weight heparin 's therapeutic range is 0.6 - 1.00 I.U./mL. Performing Location LABORATORY [facility] - [address] [facility] [address]
--- OUTSIDE RECORDS SUMMARY | 2024-03-31 08:15 | External Medical Summary | Summary of Care ---
Author Name Unknown Organization [facility] Address [address] [place] [address] Phone [phone] Care Team Providers Care Operator Vacuum Name Role Phone Unavailable Primary Care Provider Unavailabl e Encounter Details Date Type Department Care Team (Latest Contact Info) Description 02/14/2024 11:15 AM EDT - 02/14/2024 11:59 PM EDT Hospital Encounter Radiology Film File [address] [place] [address] Discharge Disposition: Home - Self Care Allergies Active Allergy Reactions Criticality Noted Date [...] Strip 3 05/15/2022 Active OneTouch Delica Plus [id number] USE TO CHECK GLUCOSE ONCE DAILY 100 [...] Next Due Pneumococcal Conjugate Vacci ne, 20-valent (Rjcldhx02) 05/30/2022 Pneumococcal Polysaccharide PPV23 (Pneumovax) 09/24/2012,07/08/2009(Deferred: Patient [...] Mobile Phlebotomy MVMG 2520 [address] [place], [place] [address] Mvmg, Gml Mobile Home Draw 2520 [address] [place], [place] [address] 03/04/2024 1:15 PM EDT Office Visit Hematology/Oncology [place] 200 [facility] [place], [place] [phone] Ralph Barron MD 200 [facility] [address] [place], [place] [address] 03/05/2024 7:00 AM EDT Laboratory Lab Mobile Phlebotomy MVMG 2520 [address] [place], [place] [address] Mvmg, Gml Mobile Home Draw 2520 [address] [place], [place] [address] 03/06/2024 6:00 AM EDT Anticoagulation Pharmacy Call Center 58-60 [facility] [place] Valentin [address] Ccps, [facility] 58 60 [facility] [place] [address] 03/12/2024 7:00 AM EDT Laboratory Lab Mobile Phlebotomy MVMG 2520 [address] [place], [place] [address] Mvmg, Gml Mobile Home Draw 2520 [address] [place], [place] [address] 03/19/2024 7:00 AM EDT Laboratory Lab Mobile Phlebotomy MVMG 2520 [address] [place], [place] [address] Mvmg, Gml Mobile Home Draw 2520 [place] [address] 03/26/2024 7:00 AM EDT Laboratory Lab Mobile Phlebotomy MVMG 2520 [address] [place], [place] [address] Mvmg, Gml Mobile Home Draw 2520 [address] [place], [place] [address] 04/02/2024 7:00 AM EDT Laboratory Lab Mobile Phlebotomy MVMG [address] [place] [address] Mvmg, Gml Mobile Home Draw 2520 [place] [address] 04/09/2024 7:00 AM EDT Laboratory Lab Mobile Phlebotomy MVMG 2520 [place] [address] Mvmg, Gml Mobile Home Draw 2520 [facility] [address] 04/16/2024 7:00 AM EDT Laboratory Lab Mobile Phlebotomy MVMG 2520 [place] [address] Mvmg, Gml Mobile Home Draw 2520 [place] [address] 04/23/2024 7:00 AM EDT Laboratory Lab Mobile Phlebotomy MVMG 2520 [place] [address] Mvmg, Gml Mobile Home Draw 2520 [place] [address] 04/30/2024 7:00 AM EDT Laboratory Lab Mobile Phlebotomy MVMG 2520 [place] [address] Mvmg, Gml Mobile Home Draw 2520 [place] [address] 05/07/2024 7:00 AM EDT Laboratory Lab Mobile Phlebotomy MVMG 2520 [place] [address] Mvmg, Gml Mobile Home Draw 2520 [place] [address] 05/14/2024 7:00 AM EDT Laboratory Lab Mobile Phlebotomy MVMG 2520 [place] [address] Mvmg, Gml Mobile Home Draw 2520 [place] [address] 05/21/2024 7:00 AM EDT Laboratory Lab Mobile Phlebotomy MVMG 2520 [place] [address] Mvmg, Gml Mobile Home Draw 2520 [place] [address] 05/28/2024 7:00 AM EDT Laboratory Lab Mobile Phlebotomy MVMG [address] [place] [address] Mvmg, Gml Mobile Home Draw 25[address] [place] [address] 06/04/2024 7:00 AM EDT Laboratory Lab Mobile Phlebotomy MVMG [address] [place] [address] Mvmg, Gml Mobile Home Draw 25[address] [place] [address] 06/11/2024 7:00 AM EDT Laboratory Lab Mobile Phlebotomy MVMG [address] [place] [address] Mvmg, Gml Mobile Home Draw 25[address] [place] [address] 06/18/2024 7:00 AM EDT Laboratory Lab Mobile Phlebotomy MVMG [address] [place] [address] Mvmg, Gml Mobile Home Draw 2520 [place] [address] 06/25/2024 7:00 AM EDT Laboratory Lab Mobile Phlebotomy MVMG [address] [place] [address] Mvmg, Gml Mobile Home Draw 2520 [place] [address] 08/12/2024 1:20 PM EDT Office Visit [address] [place] [phone] Millie Lovell CRNP [address] [place] [address] [place] M[place]on[place] [address] 02/10/2025 1:40 PM EDT Office Visit [address] [place] [phone] Jewels Greenfield MD [address] [place] [address] [place]on[place] [address] Scheduled Procedures Name Priority Associated Diagnoses Date/Ti [...] this encounter Medical Devices Implanted Type Area Machine Plug Shaper Device Identifier Shelf Expiration Date Model / Serial / Lot [place] 18 Liq Embolic Agent - [id number] Implanted:Qty: 1 on 12/31/2023 by Hesham Martell MD, PhD at [place] [facility] [employer] : NEURO CARE [id number] 01/24/2026 105-7100-06 0 / / [id number] Description:Lot #[id number] documented as of this encounter Procedures Procedure [...] study not interpreted or resulted by a [employer]er or [employer] contracted radiologist. Hesham Martell MD, PhD RAD [...]
--- OUTSIDE RECORDS SUMMARY | 2024-03-31 08:15 | External Medical Summary | Summary of Care ---
Author Name Unknown Organization [facility] Address [address] [place] [address] Phone [phone] Care Team Providers Care Application Release Manager Name Role Phone Jewels Greenfield MD Primary Care Provide r Reason for Visit * Reason Onset Date Comments Test Results Lab 02/19/2024 Encounter Details Date Type Department Care Team ([facility] st Contact Info) Description 02/19/2024 Telephone Hematology/Oncology [facility] [place] 200 [facility] [place] [phone] Ralph Barron MD 200 [facility] [address] Test Results Lab Allergies Active Allergy Reactions [...] Strip 3 05/15/2022 Active OneTouch Delica Plus Crnyqk80M USE TO CHECK GLUCOSE ONCE DAILY 100 [...] Next Due Pneumococcal Conjugate Vacci ne, 20-valent (Hjehdsi89) 05/30/2022 Pneumococcal Polysaccharide PPV23 (Pneumovax) 09/24/2012,07/08/2009(Deferred: Patient [...] Mobile Phlebotomy MVMG [address] [place] [address] [address] Mvmg, Gml Mobile Home Draw [address] [place] [address] 03/04/2024 1:15 PM EDT Office Visit Hematology/Oncology [place] [address] [place] [phone] Ralph Barron MD 200 [facility] [place] [address] 03/05/2024 7:00 AM EDT Laboratory Lab Mobile Phlebotomy MVM[facility] [address] [place] [address] Mvmg, Gml Mobile Home Draw [address] [address] 03/06/2024 6:00 AM EDT Anticoagulation Pharmacy Call Center WB 58-60 [facility] [place] Valentin [address] Ccps, [facility] 58 60 [facility] [address] 03/12/2024 7:00 AM EDT Laboratory Lab Mobile Phlebotomy MVM[facility] [address] [address] Mvmg, Gml Mobile Home Draw [address] [place] [address] 03/19/2024 7:00 AM EDT Laboratory Lab Mobile Phlebotomy MVM[facility] [address] [address] Mvmg, Gml Mobile Home Draw [address] [place] [address] [address] 03/26/2024 7:00 AM EDT Laboratory Lab Mobile Phlebotomy MVMG 2520 [place] [address] Mvmg, Gml Mobile Home Draw 2520 [place] [address] 04/02/2024 7:00 AM EDT Laboratory Lab Mobile Phlebotomy MVMG 2520 [place] [address] Mvmg, Gml Mobile Home Draw 2520 [place] [address] 04/09/2024 7:00 AM EDT Laboratory Lab Mobile Phlebotomy MVMG 2520 [place] [address] Mvmg, Gml Mobile Home Draw 2520 [place] [address] 04/16/2024 7:00 AM EDT Laboratory Lab Mobile Phlebotomy MVMG 2520 [place] [address] Mvmg, Gml Mobile Home Draw 2520 [place] [address] 04/23/2024 7:00 AM EDT Laboratory Lab Mobile Phlebotomy MVMG 2520 [place] [address] Mvmg, Gml Mobile Home Draw 2520 [place] [address] 04/30/2024 7:00 AM EDT Laboratory Lab Mobile Phlebotomy MVMG 2520 [place] [address] Mvmg, Gml Mobile Home Draw 2520 [place] [address] 05/07/2024 7:00 AM EDT Laboratory Lab Mobile Phlebotomy MVMG 2520 [place] [address] Mvmg, Gml Mobile Home Draw [address] [facility] [place] [place] [address] 05/14/2024 7:00 AM EDT Laboratory Lab Mobile Phlebotomy MVMG 2520 [place] [address] Mvmg, Gml Mobile Home Draw 2520 Manoj [facility] [place] [address] 05/21/2024 7:00 AM EDT Laboratory Lab Mobile Phlebotomy MVMG [address] [place] [address] Mvmg, Gml Mobile Home Draw 2520 Manoj [facility] [place] [address] 05/28/2024 7:00 AM EDT Laboratory Lab Mobile Phlebotomy MVMG 2520 [employer] [facility] [place] [address] Mvmg, Gml Mobile Home Draw 2520 [place] [address] 06/04/2024 7:00 AM EDT Laboratory Lab Mobile Phlebotomy MVMG 2520 [place] [address] Mvmg, Gml Mobile Home Draw 2520 [place] [address] 06/11/2024 7:00 AM EDT Laboratory Lab Mobile Phlebotomy MVMG 25[address] [place] [address] Mvmg, Gml Mobile Home Draw [address] [facility] [place] [address] 06/18/2024 7:00 AM EDT Laboratory Lab Mobile Phlebotomy MVM[facility] 2520 [place] [address] Mvmg, Gml Mobile Home Draw 2520 [place] [address] 06/25/2024 7:00 AM EDT Laboratory Lab Mobile Phlebotomy MVMG 2520 Manoj [facility] [place] [address] Mvmg, Gml Mobile Home Draw 2520 [place] [address] 08/12/2024 1:20 PM EDT Office Visit Family [address] [phone] Millie Lovell CRNP [address] [place] [address] [place]on[place] [address] 02/10/2025 1:40 PM EDT Office Visit Family Medicine [address] [place] [phone] Jewels Greenfield MD [address] [place] [address] [place] [address] Scheduled Procedures Name Priority Associated Diagnoses Date/Ti [...] this encounter Medical Devices Implanted Type Area Senior Trainer Device Identifier Shelf Expiration Date Model / Serial / Lot [place] 18 Liq Embolic Agent - [id number] Implanted:Qty: 1 on 12/31/2023 by Hesham Martell MD, PhD at [facility] [employer] : NEURO CARE [id number] 01/24/2026 105-7100-06 0 / / [id number] Description:[id number] #[id number] documented as of this encounter Advance Directives [...] Advance Directives occurred with: Patient Care Teams Application Release Manager Relationship Specialty Start Date End Date Jewels Greenfield MD [address] [place] [address] [place] [address] PCP - General Family Medicine 02/18/24 documented as of this encounter
--- OUTSIDE RECORDS SUMMARY | 2024-03-31 08:16 | External Medical Summary | Summary of Care ---
Author Name Unknown Organization [facility] Address [address] [place] [address] Phone [phone] Care Team Providers Care Whitesmith Name Role Phone Unavailable Primary Care Provider Unavailabl e Reason for Visit * Reason Onset Date Comments Advice 02/18/2024 Why was pt put o n an antibiotic Encounter Details Date Type Department Care Team (Late st Contact Info) Description 02/18/2024 Telephone Family [address] [phone] Jewels Greenfield MD [address] [place] [address] [place] [phone] Advice (Why was pt put on an antibiotic) Allergies Active Allergy Reactions Criticality Noted Date Comments Codeine Hives,Itching 06/07/2018 Morphine And Related 01/28/2008 Rituximab 02/08/2024 documented as of this encounter (statuses as of 02/18/2024) Medications Medication Sig Dispensed Refills Start Date [...] Strip 3 05/15/2022 Active OneTouch Delica Plus [id number] USE TO CHECK GLUCOSE ONCE DAILY 100 [...] for Constipation. 15 Tablet 0 01/15/2024 Active Enoxaparin Sodium 100 MG/ML Injection Solution Prefilled Syringe (Lovenox) Inject 50 mg under the skin in the morning and 50 mg before bedtime. 100 mL 2 01/15/2024 Active predniSONE 20 MG Oral Tablet (Deltasone) Take 3 Tablets by mouth in the morning. 90 Tablet 0 01/16/2024 Active Sulfamethoxazole-Trime thoprim 800-160 MG Oral Tablet (Bactrim DS)Indications:Idiopat hic thrombocytopenic purpura (ITP) (HCC) Take 1 Tablet by mouth once a day on Sunday, Sunday, and Sunday only. 15 Tablet 1 02/08/2024 Active Additional Information Patient not taking.Reported on 02/08/2024 documented as of this encounter (statuses as of 02/18/2024) Active Problems Problem Noted Date Diagnosed Date [...] as of this encounter (statuses as of 02/18/2024) Resolved Problems Problem Noted Date Diagnosed Date [...] as of this encounter (statuses as of 02/18/2024) Immunizations Name Administration Dates Next Due Pneumococcal Conjugate Vacci ne, 20-valent ([id number]) 05/30/2022 Pneumococcal Polysaccharide PPV23 (Pneumovax) 09/24/2012,07/08/2009(Deferred: Patient [...] encounter Miscellaneous Notes * Telephone Encounter - Alejandra Paul LPN - 02/18/2024 10:19 AM EDT Pt calling to inquiring why the bactrim was ordered. Informed pt is it was to replace the mepron suspension. She verbalized understanding. No further questions. * Telephone Encounter - Evelin Wells OSA - 02/18/2024 10:15 AM EDT Reason for patient's call: pt has questions for a nurse Caller was transferred to [facility] at the nurse line. * Telephone Encounter - Evelin Wells OSA - 02/18/2024 10:12 AM EDT Pt calling stating she does not understand why she was put on an antibiotic please advise on this documented in this encounter Plan of Treatment Upcoming Encounters Date Type Department Care Team (Late st Contact Info) Description 02/19/2024 11:00 AM EDT Telemedicine Neurosurgery, [place] [address] [place] [address] Hesham Martell MD, PhD [address] [place] [address] 02/20/2024 7:00 AM EDT Laboratory [facility] [address] [place] [address] [address] [facility] [address] [place] [address] [address] 02/20/2024 6:00 PM EDT Anticoagulation Pharmacy Call Center [phone] [place] [address] [facility] 58 60 [facility] [place] [address] 02/27/2024 7:00 AM EDT Laboratory [facility] [address] [address] [facility] [address] [place] [address] 03/04/2024 1:15 PM EDT Office Visit Hematology/Oncology [facility] [place] [address] [facility] [place] [id number] Ralph Barron MD 200 [facility] [place], [place] [address] 03/05/2024 7:00 AM EDT Laboratory [facility] [address] [address] [address] [facility] [address] [address] [address] 03/12/2024 7:00 AM EDT Laboratory [facility] [address], [place] [address] [facility] [address], [place] [address] 03/19/2024 7:00 AM EDT Laboratory [facility] [address], [place] [address] [facility] [address], [place] [address] 03/26/2024 7:00 AM EDT Laboratory [facility] [address], [place] [address] [facility] [address], [place] [address] 04/02/2024 7:00 AM EDT Laboratory [facility] [address], [place] [address] [facility] [address] [place] [address] 04/09/2024 7:00 AM EDT Laboratory [facility] [address] [place] [address] [facility] [address] [place] [address] 04/16/2024 7:00 AM EDT Laboratory [facility] [address] [place] [address] [facility] [address] [place] [address] 04/23/2024 7:00 AM EDT Laboratory [facility] [address] [place] [address] [facility] [address] [place] [address] 04/30/2024 7:00 AM EDT Laboratory [facility] [address] [place] [address] M[facility] [address] [place] [address] 05/07/2024 7:00 AM EDT Laboratory [facility] [address] [place] [address] [facility] [address] [place] [address] 05/14/2024 7:00 AM EDT Laboratory [facility] [address] [place] [address] [facility] [address] [place] [address] 05/21/2024 7:00 AM EDT Laboratory [facility] [address] [place] [address] M[facility] [address] [place] [address] 05/28/2024 7:00 AM EDT Laboratory [facility] [address] [place] [address] [facility] [address] [place] [address] 06/04/2024 7:00 AM EDT Laboratory [facility] [address] [employer] [place], [place] [address] [facility] [address] [place] [address] 06/11/2024 7:00 AM EDT Laboratory [facility] [address] [place] [place] [address] [facility] [address] [employer] [place] [address] 06/18/2024 7:00 AM EDT Laboratory [facility] [address] [employer] [place], [place] [address] [facility] [address] [place] [address] 06/25/2024 7:00 AM EDT Laboratory [facility] [address] [place] [address] [facility] [address] [place] [address] 08/12/2024 1:20 PM EDT Office Visit [address] [phone] Millie Lovell CRNP [address] [place] [address] [place] [address] 02/10/2025 1:40 PM EDT Office Visit [address] [phone] Jewels Greenfield MD [address] [place] [address] [place] [address] Scheduled Procedures Name Priority Associated Diagnoses Date/Ti [...] encounter Medical Devices Implanted Type Area Manager Employee Benefits Device Identifier Shelf Expiration Date Model / Serial / Lot [place] 18 Liq Embolic Agent - [id number] Implanted:Qty: 1 on 12/31/2023 by Hesham Martell MD, PhD at [facility] [employer] : NEURO CARE [id number] 01/24/2026 105-7100-06 0 / / [id number] Description:Lot #[id number] documented as of this encounter Advance Directives [...]
--- OUTSIDE RECORDS SUMMARY | 2024-03-31 08:16 | External Medical Summary | Summary of Care ---
Author Name Unknown Organization [facility] Address [address] [place] [address] Phone [phone] Care Team Providers Care Clinical Sociologist Name Role Phone Jewels Greenfield MD Primary Care Provide r Reason for Visit * Reason Onset Date Comments Test Results Lab 02/19/2024 Encounter Details Date Type Department Care Team ([facility] st Contact Info) Description 02/19/2024 Telephone Hematology/Oncology [facility] [place] 200 [facility] [place] [phone] [facility] [address] Test Results Lab Allergies Active Allergy Reactions Criticality Noted Date Comments Codeine Hives,Itching 06/07/2018 Morphine And Related 01/28/2008 Rituximab 02/08/2024 documented as of this encounter (statuses as of 02/19/2024) Medications Medication Sig Dispensed Refills Start Date [...] Strip 3 05/15/2022 Active OneTouch Delica Plus [id number] USE TO CHECK GLUCOSE ONCE DAILY 100 [...] as of this encounter (statuses as of 02/19/2024) Active Problems Problem Noted Date Diagnosed Date [...] as of this encounter (statuses as of 02/19/2024) Resolved Problems Problem Noted Date Diagnosed Date [...] as of this encounter (statuses as of 02/19/2024) Immunizations Name Administration Dates Next Due Pneumococcal Conjugate Vacci ne, 20-valent ([id number]) 05/30/2022 Pneumococcal Polysaccharide PPV23 (Pneumovax) 09/24/2012,07/08/2009(Deferred: Patient [...] Team (Late st Contact Info) Description 02/20/2024 7:00 AM EDT Laboratory [facility] [address] [place] [address] [address] [facility] [address] [place] [address] 02/20/2024 6:00 PM EDT Anticoagulation Pharmacy Call Center [phone] [facility] [place] [address] [facility] 58 60 [facility] [place], [place] [address] 02/27/2024 7:00 AM EDT Laboratory [facility] [address], [place] [address] [facility] [address], [place] [address] 03/04/2024 1:15 PM EDT Office Visit Hematology/On[facility] [place] [address] [place], [place] [phone] Ralph Barron MD [address] [place] [address] 03/05/2024 7:00 AM EDT Laboratory [facility] [address] [address] [address] [facility] [address], [place] [address] 03/12/2024 7:00 AM EDT Laboratory [facility] [address], [place] [address] [facility] [address], [place] [address] 03/19/2024 7:00 AM EDT Laboratory [facility] [address], [place] [address] [facility] [address], [place] [address] 03/26/2024 7:00 AM EDT Laboratory [facility] [address], [place] [address] [facility] [address], [place] [address] 04/02/2024 7:00 AM EDT Laboratory [facility] [address], [place] [address] [facility] [address] [place] [address] 04/09/2024 7:00 AM EDT Laboratory [facility] [address] [place] [address] [facility] [address] [place] [address] 04/16/2024 7:00 AM EDT Laboratory Lab [facility] [address] [employer] [place] [address] M[facility], [facility] [address] [place] [address] 04/23/2024 7:00 AM EDT Laboratory [facility] [address] [place] [address] Mv[facility], [facility] Draw [address] [place] [address] 04/30/2024 7:00 AM EDT Laboratory Lab [facility] [address] [employer] [facility] [place] [address] Mv[facility], [facility] Draw [address] [place] [address] 05/07/2024 7:00 AM EDT Laboratory [facility] [address] [place] [address] Mv[facility] [address] [place] [place] [address] 05/14/2024 7:00 AM EDT Laboratory Lab [facility] [address] [place] [address] M[facility], [facility] [address] [place] [address] 05/21/2024 7:00 AM EDT Laboratory [facility] [address] [place] [address] Mv[facility], [facility] [address] [place] [place] [address] 05/28/2024 7:00 AM EDT Laboratory Lab [facility] [address] [place] [address] [facility] [address] [place] [address] 06/04/2024 7:00 AM EDT Laboratory Lab [facility] [address] [place] [address] M[facility], [facility] [address] [facility] [place] [address] 06/11/2024 7:00 AM EDT Laboratory Lab [facility] [address] [place] [address] M[facility], [facility] [address] [facility] [place] [address] 06/18/2024 7:00 AM EDT Laboratory Lab [facility] [address] [place] [address] M[facility] [address] [place] [address] 06/25/2024 7:00 AM EDT Laboratory Lab [facility] [address] [place] [address] [facility], [facility] [address] [place] [address] 08/12/2024 1:20 PM EDT Office Visit [address] [phone] Millie Lovell CRNP [address] [place] [address] [place] [address] 02/10/2025 1:40 PM EDT Office Visit [address] [phone] Jewels Greenfield MD [address] [place] [address] [place] [address] Scheduled Procedures Name Priority Associated Diagnoses Date/Ti [...] this encounter Medical Devices Implanted Type Area Fixture Fabricator Repairer Device Identifier Shelf Expiration Date Model / Serial / Lot [place] 18 Liq Embolic Agent - [id number] Implanted:Qty: 1 on 12/31/2023 by Hesham Martell MD, PhD at [facility] [place] [place] [employer] : NEURO CARE [id number] 01/24/2026 105-7100-06 0 / / [id number] Description:Lot #[id number] documented as of this encounter Advance Directives [...] Advance Directives occurred with: Patient Care Teams Clinical Sociologist Relationship Specialty Start Date End Date Jewels Greenfield MD [address] [place] [address] [place] [address] PCP - General Family Medicine 02/18/24 documented as of this encounter
--- OUTSIDE RECORDS SUMMARY | 2024-03-31 08:16 | External Medical Summary | Summary of Care ---
Author Name Unknown Organization [facility] Address [address] [place] [address] Phone [phone] Care Team Providers Care Stewardess Supervisor Name Role Phone Jewels Greenfield MD Primary Care Provide r Encounter Details Date Type Department Care Team (Late st Contact Info) Description 02/19/2024 11:00 AM EDT Telemedicine Neurosurgery, [place] [address], [place] [id number] Hesham Martell MD, PhD [address], [place] [id number] SDH (subdural hematoma) ([facility])* Allergies Active Allergy Reactions Criticality Noted Date [...] Strip 3 05/15/2022 Active OneTouch Delica Plus [id number] USE TO CHECK GLUCOSE ONCE DAILY 100 [...] Next Due Pneumococcal Conjugate Vacci ne, 20-valent ([id number]) 05/30/2022 Pneumococcal Polysaccharide PPV23 (Pneumovax) 09/24/2012,07/08/2009(Deferred: Patient [...] as of this encounter Progress Notes * Hesham Martell MD, PhD - 02/19/2024 11:14 AM EDT Telephone Encounter: After connecting to the patient via telephone, I introduced myself to the patient and let them knowthat there was no one else in the room with me . The patient was identified by name and date of . Patient was then informed that this was a telephone call only visit and that the encounter was being conducted confidentially. My office door was closed. No one else was in the room with me. Patient acknowledged consent and understanding of privacy and security of the telephone visit and gave permission to participate. Visit Disposition: Routine follow-up Total call duration was 13 minutes. Jalyn Rios is a very pleasant 53 year old female who returns to our cerebrovascular clinic for follow up and discussion of further management. She recently went to ED because of light headedness, fatigue. She was taking stool- softeners and per patient she probably overdid it. During our lastconversation, the blood sugar was not well controlled. Today Jalyn reported that her blood sugarhas recently been well controlled. In the ED, the also underwent a CTH. Surgical history Past Surgical History: Procedure Laterality Date ABD/PELVIS CT W/ + W/O IV AND W/PO CONTRAST 01/27/2008 cholelithiasis, ventral hernia CAROTID (INTERNAL) ARTERY CATHETHER PLACEMENT N/A 11/16/2023 CATHETER PLACEMENT INTERNAL CAROTID ARTERY performed by Yousuf Cyr MD [place] [facility] [place]OTID (INTERNAL) ARTERY CATHETHER PLACEMENT Left 12/31/2023 CATHETER PLACEMENT INTERNAL CAROTID ARTERY RADIAL ACCESS performed by Hesham Martell MD, PhD at [place] [facility] [place] CATHETER OCCLUSION/EMBOLIZATION,CIGAR MAKING SUPERVISOR Left 12/31/2023 TRANSCATHETER PERMANENT ARTERIAL OCCLUSION CENTRAL NERVOUS SYSTEM performed by Hesham Martell MD, PhD at [place] [facility] [place] COLONOSCOPY, DIAGNOSTIC (RECTUM) 06/18/2019 adenomatous & tubulovillous adenoma polyps, repeat 1 yr/COLONOSCOPY FLEXIBLE PROXIMAL DIAGNOSTIC performed by Felicia Ng DO at ENDOSCOPY [facility] CREATE EARDRUM OPENING,GEN'L ANESTH as a child CT TEMPORAL BONES WO CONTRAST 07/17/06 at 611 MRI Thickening and retraction of the left ytmpanic membrane and blunting of the left scutum with some adjacent soft tissue density. I suspect this is probably related to chronic otitis media or scarrign of the external auditory canal/ tympanic membrane. a small cholesteotoma is not excluded. direct visualization is recommended. MAMMOGRAM SCREENING BILATERAL Bilateral 04/02/2015 almost entirely fat, category 2 PROCEDURE - GENERAL 01/16/[address] Angeline Garcia REMOVE TONSILS & ADENOIDS, UNDER 12 TOTAL ABD HYSTERECTOMY W/WO REMOVAL OF TUBE(S) 1995 VERTEBRAL ARTERY CATHETER PLACEMENT N/A 11/16/2023 CATHETER PLACEMENT VERTEBRAL ARTERY, performed by Yousuf Cyr MD at [place] [facility] [place] Problem list Patient Active Problem List Diagnosis Code Tobacco use disorder F17.200 Class 1 obesity due to excess calories without serious comorbidity in adult E66.09 Metabolic syndrome E88.810 Family history of diabetes mellitus Z83.3 Sensorineural hearing loss, bilateral H90.3 Dysfunction of eustachian tube H69.90 Gastroesophageal reflux disease without esophagitis K21.9 Slow transit constipation K59.01 Dyslipidemia, goal LDL below 130 E78.5 Idiopathic thrombocytopenic purpura (ITP) ([facility]) D69.3 Chronic idiopathic thrombocytopenia ([facility]) D69.3 Antiphospholipid antibody syndrome ([facility]) D68.61 Acquired hypothyroidism E03.9 Retracted tympanic membrane, left H73.892 Conductive hearing loss of left ear with restricted hearing of right ear H90.A12 Chronic deep vein thrombosis (DVT) of left popliteal vein ([facility]) I82.532 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 Sitemasher Verio In Vitro Strip (Glucose Blood) USE STRIP TO CHECK GLUCOSE ONCE DAILY 100 Strip 3 Silverback SystemsTouch Delica Plus [id number] USE TO CHECK GLUCOSE ONCE DAILY 100 Each 3 Sitemasher Verio Flex System w/Device Kit Use as [...] daily as neededfor Constipation. 15 Tablet 0 predniSONE 20 MG Oral Tablet (Deltasone) Take 3 Tablets by mouth in the morning. 90 Tablet 0 Sulfamethoxazole-Trimethoprim 800-160 MG Oral Tablet (Bactrim DS) Take 1 Tablet by mouth once a dayon Sunday, Sunday, and Sunday only. (Patient not taking: Reported on 02/08/2024) 15 Tablet 1 Enoxaparin Sodium 100 MG/ML Injection Solution Prefilled Syringe (Lovenox) Inject 50 mg under the skin in the morning and 50 mg before bedtime. 100 mL 0 No current facility-administered medications for this visit. Assessment and plan I reviewed the CTH and discussed the findings with Jalyn. I explained that there is no midline shift and progressive decline of the previous L parietal subdural hematoma. There is a minimal residual, significantly improved from previously. There is no need for additional scans or follow-up with me unless new concerns would arise or new imaging would show new findings. The patient questions were answered thoroughly. The patient expressed understanding and elected to proceed with the above mentioned plan. Hesham Martell MD, PhD Staff Neurosurgeon Endovascular and Cerebrovascular Neurosurgery [facility], [place], [place] documented in this encounter Plan of Treatment Upcoming Encounters Date Type Department Care Team (Late st Contact Info) Description 02/20/2024 7:00 AM EDT Laboratory Lab Mobile Phlebotomy [facility] [address] [employer] [place] [address] Mvmg, G[facility] Draw [address] [employer] [place] [address] 02/20/2024 6:00 PM EDT Anticoagulation Pharmacy Call Center WB 58-60 [facility] [place] [address] [facility], [facility] 58 60 [facility] [place] [address] 02/27/2024 7:00 AM EDT Laboratory Lab Mobile Phlebotomy [facility] [address] [employer] [place] [address] Mvmg, Gml Mobile Home Draw [address] [place] [address] 03/04/2024 1:15 PM EDT [facility] [place] [phone] Ralph Barron MD 200 [facility] [place] [address] 03/05/2024 7:00 AM EDT Laboratory Lab Mobile Phlebotomy [facility] [address] [employer] [place] [address] Mvmg, Gml Mobile Home Draw [address] [place] [address] 03/12/2024 7:00 AM EDT Laboratory Lab Mobile Phlebotomy [facility] [address] [employer] [place] [address] Mvmg, Gml Mobile Home Draw [address] [place] [address] 03/19/2024 7:00 AM EDT Laboratory Lab Mobile Phlebotomy [facility] [address] [place] [address] Mvmg, Gml [facility] Draw [address] [place] [address] 03/26/2024 7:00 AM EDT Laboratory Lab Mobile Phlebotomy [facility] [address] [place] [address] Mvmg, Gml Mobile Home Draw [address] [facility] [place] [address] 04/02/2024 7:00 AM EDT Laboratory Lab Mobile Phlebotomy [facility] [address] [place] [address] Mvmg, Gml Mobile Home Draw [address] [place] [address] 04/09/2024 7:00 AM EDT Laboratory Lab Mobile Phlebotomy [facility] [address] [place] [address] Mvmg, Gml Mobile Home Draw [address] [facility] [place] [address] 04/16/2024 7:00 AM EDT Laboratory Lab Mobile Phlebotomy [facility] [address] [place] [address] Mvmg, Gml Mobile Home Draw [address] [place] [address] 04/23/2024 7:00 AM EDT Laboratory Lab Mobile Phlebotomy [facility] [address] [place] [address] Mvmg, Gml Mobile Home Draw [address]20 [facility] [place] [address] 04/30/2024 7:00 AM EDT Laboratory Lab Mobile Phlebotomy [facility] [address] [place] [address] Mvmg, Gml Mobile Home Draw [address] [place] [address] 05/07/2024 7:00 AM EDT Laboratory Lab Mobile Phlebotomy [facility] [address] [place] [address] Mvmg, Gml Mobile Home Draw [address] [facility] [place] [address] 05/14/2024 7:00 AM EDT Laboratory Lab Mobile Phlebotomy [facility] [address] [facility] [place] [address] Mvmg, Gml Mobile Home Draw [address] [facility] [place] [address] 05/21/2024 7:00 AM EDT Laboratory Lab Mobile Phlebotomy [facility] [address] [facility] [place] [address] Mvmg, Gml Mobile Home Draw [address] [facility] [place] [address] 05/28/2024 7:00 AM EDT Laboratory Lab Mobile Phlebotomy [facility] [address] [facility] [place] [address] Mvmg, Gml Mobile Home Draw [address] [facility] [place] [address] 06/04/2024 7:00 AM EDT Laboratory Lab Mobile Phlebotomy [facility] [address] [facility] [place] [address] Mvmg, Gml Mobile Home Draw [address] [facility] [place] [address] 06/11/2024 7:00 AM EDT Laboratory Lab Mobile Phlebotomy [facility] [address] [facility] [place] [address] Mvmg, Gml Mobile Home Draw [address] [facility] [place] [address] 06/18/2024 7:00 AM EDT Laboratory Lab Mobile Phlebotomy [facility] [address] [facility] [place] [address] Mvmg, Gml Mobile Home Draw [address] [facility] [place] [address] 06/25/2024 7:00 AM EDT Laboratory Lab Mobile Phlebotomy [facility] [address] [facility] [place] [address] Mvmg, Gml Mobile Home Draw [address] [employer] [place] [address] 08/12/2024 1:20 PM EDT Office Visit [address] [phone] Millie Lovell CRNP [address] [place] [address] [place] [address] 02/10/2025 1:40 PM EDT Office Visit [address] [place] [phone] Jewels Greefnield MD [address] [place] [address] [place] [address] Scheduled Procedures Name Priority Associated Diagnoses Date/Ti [...] this encounter Medical Devices Implanted Type Area Household Appliances Salesperson Device Identifier Shelf Expiration Date Model / Serial / Lot [place] 18 Liq Embolic Agent - [id number] Implanted:Qty: 1 on 12/31/2023 by Hesham Martell MD, PhD at [facility] [employer] : NEURO CARE [id number] 01/24/2026 105-7100-06 0 / / [id number] Description:Lot #[id number] documented as of this encounter Visit Diagnoses Diagnosis SDH (subdural hematoma) (HCC)- Primary Subdural hemorrhage documented in this encounter Advance Directives Latest [...] Advance Directives occurred with: Patient Care Teams Stewardess Supervisor Relationship Specialty Start Date End Date Jewels Greenfield MD [address] [place] [address] [place] [address] PCP - General Family Medicine 02/18/24 documented as of this encounter
--- OUTSIDE RECORDS SUMMARY | 2024-03-31 08:16 | External Medical Summary ---
Author Name Unknown Address Unknown Organization K01:[facility] - [address] [place] [address] Laboratory Report Ordering Provider Test Date Status SHERLYN ROBLES 02/20/2024 11:49:00 Final Observation Date Value Abnormality Reference (Units ) Status SYNC LEUKOCYTES IN BLOOD BY AUTOMATED COUNT 02/20/2024 11:49:00 7.90 4.00-10.80 (K/uL) Final Segs 02/20/2024 11:49:00 70.0 40.0-75.0 (%) Final Lymphs % 02/20/2024 11:49:00 19.9 18.0-42.0 (%) Final Monos 02/20/2024 11:49:00 8.0 1.0-11.0 (%) Final Eosinophils 02/20/2024 11:49:00 0.1 0.0-6.0 (%) Final Basos 02/20/2024 11:49:00 0.1 0.0-2.0 (%) Final Immature Granulocyte, Percent 02/20/2024 11:49:00 1.9 0.0-2.0 (%) Final Absolute Segs 02/20/2024 11:49:00 5.53 1.80-7.70 (K/uL) Final Lymphs, absolute 02/20/2024 11:49:00 1.57 1.00-4.80 (K/ul) Final Monos, Abs 02/20/2024 11:49:00 0.63 0.00-1.10 (K/uL) Final Eos, Abs 02/20/2024 11:49:00 0.01 0.00-0.70 (K/uL) Final Basos, Abs 02/20/2024 11:49:00 0.01 0.00-0.20 (K/uL) Final Immature Granulocytes, Number 02/20/2024 11:49:00 0.15 0.00-0.20 (K/uL) Final Performing Location [facility] - [address] [facility] [address]
--- OUTSIDE RECORDS SUMMARY | 2024-03-31 08:16 | External Medical Summary | Summary of Care ---
Author Name Unknown Organization [facility] Address [address] [place] [address] Phone [phone] Care Team Providers Care Surgical Oncologist Name Role Phone Jewels Greenfield MD Primary Care Provide r Reason for Visit * Reason Onset Date Comments Test Results Lab 02/19/2024 Encounter Details Date Type Department Care Team ([facility] st Contact Info) Description 02/19/2024 Telephone Hematology/Oncology [facility] [place] [address] [facility] [place] [phone] Ralph Bar[facility] MD [facility] [address] Test Results Lab Allergies Active Allergy Reactions [...] Strip 3 05/15/2022 Active OneTouch Delica Plus [id number] USE TO CHECK GLUCOSE ONCE DAILY 100 [...] Next Due Pneumococcal Conjugate Vacci ne, 20-valent (Kovzznh45) 05/30/2022 Pneumococcal Polysaccharide PPV23 (Pneumovax) 09/24/2012,07/08/2009(Deferred: Patient [...] Mobile Phlebotomy [facility] [address] [place] [address] [address] Mvmg, Gml Mobile Home Draw [address] [place] [address] 02/20/2024 6:00 PM EDT Anticoagulation Pharmacy Call Center WB 58-60 [facility] [place] [address] [facility] 58 60 [facility] [place] [address] 02/27/2024 7:00 AM EDT Laboratory Lab Mobile Phlebotomy [facility] [address] [place] [address] Mvmg, Gml Mobile Home Draw [address] [place] [address] 03/04/2024 1:15 PM EDT Office Visit Hematology/Oncology [facility] [place] [address] [phone] Ralph Barron MD 200 [facility] [place] [address] 03/05/2024 7:00 AM EDT Laboratory Lab Mobile Phlebotomy [facility] [address] [place] [address] Mvmg, Gml Mobile Home Draw 2520 [facility] [place] [address] 03/12/2024 7:00 AM EDT Laboratory Lab Mobile Phlebotomy [facility] [address] [place] [address] Mvmg, Gml Mobile Home Draw [address] [place] [address] 03/19/2024 7:00 AM EDT Laboratory Lab Mobile Phlebotomy [facility] [address] [place] [address] Mvmg, Gml Mobile Home Draw [address] [facility] [place] [address] 03/26/2024 7:00 AM EDT Laboratory Lab Mobile Phlebotomy [facility] [address] [place] [address] Mvmg, Gml Mobile Home Draw [address] [facility] [place] [address] 04/02/2024 7:00 AM EDT Laboratory Lab Mobile Phlebotomy [facility] [address] [place] [address] Mvmg, Gml Mobile Home Draw [address] [place] [address] 04/09/2024 7:00 AM EDT Laboratory Lab Mobile Phlebotomy [facility] [address] [place] [address] Mvmg, Gml Mobile Home Draw [address] [place] [address] 04/16/2024 7:00 AM EDT Laboratory Lab Mobile Phlebotomy [facility] [address] [place] [address] Mvmg, Gml Mobile Home Draw [address] [place] [address] 04/23/2024 7:00 AM EDT Laboratory Lab Mobile Phlebotomy [facility] [address] [place] [address] Mvmg, Gml Mobile Home Draw [address] [place] [address] 04/30/2024 7:00 AM EDT Laboratory Lab Mobile Phlebotomy [facility] [address] [place] [address] Mvmg, Gml Mobile Home Draw [address] [place] [address] 05/07/2024 7:00 AM EDT Laboratory Lab Mobile Phlebotomy [facility] [address] [place] [address] Mvmg, Gml Mobile Home Draw [address] [place] [address] 05/14/2024 7:00 AM EDT Laboratory Lab Mobile Phlebotomy [facility] [address] [place] [address] Mvmg, Gml Mobile Home Draw [address] [place] [address] 05/21/2024 7:00 AM EDT Laboratory Lab Mobile Phlebotomy [facility] [address] [place] [address] Mvmg, Gml Mobile Home Draw [address] [place] [address] 05/28/2024 7:00 AM EDT Laboratory Lab Mobile Phlebotomy [facility] [address] [place] [address] Mvmg, Gml Mobile Home Draw [address] [place] [address] 06/04/2024 7:00 AM EDT Laboratory Lab Mobile Phlebotomy [facility] [address] [place] [address] Mvmg, Gml Mobile Home Draw [address] [place] [address] 06/11/2024 7:00 AM EDT Laboratory Lab Mobile Phlebotomy [facility] [address] [place] [address] Mvmg, Gml Mobile Home Draw [address] [place] [address] 06/18/2024 7:00 AM EDT Laboratory Lab Mobile Phlebotomy [facility] [address] [place] [address] Mvmg, Gml Mobile Home Draw [address] [place] [address] 06/25/2024 7:00 AM EDT Laboratory Lab Mobile Phlebotomy [facility] [address] [place], [place] [address] Mvmg, Gml Mobile Home Draw [address] [place] [address] 08/12/2024 1:20 PM EDT Office Visit Family [address] [phone] Millie Lovell CRNP [address] [place] [address] [place] [address] 02/10/2025 1:40 PM EDT Office Visit Family [address] [phone] Jewels Greenfield MD [address] [place] [address] [place] [address] Scheduled Procedures Name Priority Associated Diagnoses Date/Ti [...] this encounter Medical Devices Implanted Type Area Lithographic Press Feeder Device Identifier Shelf Expiration Date Model / Serial / Lot [place] 18 Liq Embolic Agent - [id number] Implanted:Qty: 1 on 12/31/2023 by Hesham Martell MD, PhD at [facility] [employer] : NEURO CARE [id number] 01/24/2026 105-7100-06 0 / / [id number] Description:Lot #[id number] documented as of this encounter Advance Directives [...] Advance Directives occurred with: Patient Care Teams Surgical Oncologist Relationship Specialty Start Date End Date Jewels Greenfield MD [address] [place] [address] [place] [address] PCP - General Family Medicine 02/18/24 documented as of this encounter
--- OUTSIDE RECORDS SUMMARY | 2024-03-31 08:16 | External Medical Summary | Summary of Care ---
Author Name Unknown Organization [facility] Address [address] [place] [address] Phone [phone] Care Team Providers Care Rn Ccu Name Role Phone Jewels Greenfield MD Primary Care Provide r Reason for Visit * Reason Onset Date Comments Test Results Lab 02/19/2024 Encounter Details Date Type Department Care Team ([facility] st Contact Info) Description 02/19/2024 Telephone Hematology/Oncology [facility] [place] [address] [facility] [place] [phone] Ralph Barron MD [facility] [address] Test Results Lab Allergies Active Allergy Reactions [...] Strip 3 05/15/2022 Active OneTouch Delica Plus [id number] USE TO CHECK GLUCOSE ONCE DAILY 100 [...] Next Due Pneumococcal Conjugate Vacci ne, 20-valent ([id number]) 05/30/2022 Pneumococcal Polysaccharide PPV23 (Pneumovax) 09/24/2012,07/08/2009(Deferred: Patient [...] encounter Miscellaneous Notes * Telephone Encounter - Teodora Veliz CRNP [...] EDT Laboratory Lab Mobile Phlebotomy MVM[facility] [address] [place] [address] Mvmg, [facility] [address] [place] [address] 02/20/2024 6:00 PM EDT Anticoagulation Pharmacy Call Center WB 58-60 [facility] [place] [address] [facility] 58 [address] [place] [address] 02/27/2024 7:00 AM EDT Laboratory Lab Mobile Phlebotomy MVMG [address] [place] [address] Mvmg, G[facility] Draw [address] [place] [address] 03/04/2024 1:15 PM EDT Office Visit Hematology/Oncology State [facility]a Charlton [address] [place] [address] [phone] Ralph Barron MD 200 [facility] [place] [address] 03/05/2024 7:00 AM EDT Laboratory Lab Mobile Phlebotomy MVMG [address] [place] [address] Mvmg, Gml [facility] Draw [address] [place] [address] 03/12/2024 7:00 AM EDT Laboratory Lab Mobile Phlebotomy MVMG [address] [place] [address] Mvmg, Gml [facility] Draw [address] [place] [address] 03/19/2024 7:00 AM EDT Laboratory Lab Mobile Phlebotomy MVMG [address] [place] [address] Mvmg, Gml [facility] Draw [address] [place] [address] 03/26/2024 7:00 AM EDT Laboratory Lab Mobile Phlebotomy MVMG [address] [place] [address] Mvmg, G[facility] Draw [address] [place] [address] 04/02/2024 7:00 AM EDT Laboratory Lab Mobile Phlebotomy MVMG [address] [place] [address] Mvmg, Gml [facility] Draw [address] [place] [address] 04/09/2024 7:00 AM EDT Laboratory Lab Mobile Phlebotomy MVMG [address] [place] [facility] [place] [address] Mvmg, Gml [facility] Draw [address] [place] [address] 04/16/2024 7:00 AM EDT Laboratory Lab Mobile Phlebotomy MVMG [address] [place] [address] Mvmg, Gml [facility] Draw [address] [place] [address] 04/23/2024 7:00 AM EDT Laboratory Lab Mobile Phlebotomy MVMG [address] [facility] [place] [address] Mvmg, Gml [facility] Draw [address] [facility] [place] [address] 04/30/2024 7:00 AM EDT Laboratory Lab Mobile Phlebotomy MVMG [address] [facility] [place] [address] Mvmg, Gml [facility] Draw [address] [facility] [place] [address] 05/07/2024 7:00 AM EDT Laboratory Lab Mobile Phlebotomy MVMG [address] [place] [address] Mvmg, Gml [facility] Draw [address] [place] [address] 05/14/2024 7:00 AM EDT Laboratory Lab Mobile Phlebotomy MVM[facility] [address] [facility] [place] [address] Mvmg, Gml [facility] Draw [address] [place] [address] 05/21/2024 7:00 AM EDT Laboratory Lab Mobile Phlebotomy MVMG [address] [facility] [place] [address] Mvmg, Gml Mobile Home Draw [address] [facility] [address] 05/28/2024 7:00 AM EDT Laboratory Lab Mobile Phlebotomy MVMG [address] [facility] [place] [address] Mvmg, Gml [facility] Draw [address] [facility] [address] 06/04/2024 7:00 AM EDT Laboratory Lab Mobile Phlebotomy MVMG [address] [facility] [place] [address] Mvmg, Gml [facility] Draw [address] [facility] [place] [address] 06/11/2024 7:00 AM EDT Laboratory Lab Mobile Phlebotomy MVM[facility] [address] [facility] [place] [address] Mvmg, Gml Mobile Home Draw [address] [place] [address] 06/18/2024 7:00 AM EDT Laboratory Lab Mobile Phlebotomy MVMG [address] [facility] [place] [address] Mvmg, Gml Mobile Home Draw 25[address] [facility] [place] [address] 06/25/2024 7:00 AM EDT Laboratory Lab Mobile Phlebotomy MVM[facility] [address] [place] [address] Mvmg, Gml Mobile Home Draw 2520 [facility] [place], [place] [address] 08/12/2024 1:20 PM EDT Office Visit [address] [phone] Millie Lovell CRNP [address] [place] [address] [place] [address] 02/10/2025 1:40 PM EDT Office Visit [address] [phone] Jewels Greenfield MD [address] [place] [address] [place] [address] Scheduled Procedures Name Priority Associated Diagnoses Date/Ti me COLONOSCOPY FLEXIBLE PROXIMA L DIAGNOSTIC Recall History of colon polyps Special screening for malignant neoplasms, colon Health Maintenance Due Date Last Done Comments Hepatitis B (1 of 3 - 19+ 3-dose series) 1988 Zoster Vaccines (1 of 2) 2019 COLONOSCOPY-ANNUAL AGES 18-100 06/18/2020 06/18/2019, 06/18/2019 Depression Screening 09/09/2021 09/09/2020 COVID-19 Vaccine ( - 2022-24 season) 2023 Influenza Vaccine (FLU shot) (Season [...] this encounter Medical Devices Implanted Type Area Women'S Lacrosse Coach Device Identifier Shelf Expiration Date Model / Serial / Lot [place] 18 Liq Embolic Agent - [id number] Implanted:Qty: 1 on 12/31/2023 by Hesham Martell MD, PhD at [facility] [employer] : NEURO CARE [id number] 01/24/2026 105-7100-06 0 / / [id number] Description:Lot #[id number] documented as of this encounter Advance Directives [...] Advance Directives occurred with: Patient Care Teams Rn Ccu Relationship Specialty Start Date End Date Jewels Greenfield MD [address] [place] [address] [place] [address] PCP - General Family Medicine 02/18/24 documented as of this encounter
--- OUTSIDE RECORDS SUMMARY | 2024-03-31 08:16 | External Medical Summary | Summary of Care ---
Author Name Unknown Organization [facility] Address [address] [place] [address] Phone [phone] Care Team Providers Care Offset Printing Pressmen Name Role Phone Unavailable Primary Care Provider Unavailabl e Reason for Visit * Reason Onset Date Comments Advice 02/08/2024 milena Encounter Details Date Type Department Care Team (Late st Contact Info) Description 02/08/2024 Telephone Hematology/Oncology [facility] [address] [place] [address] Services, Scheduling [address] [place] [address] Advice (milena) Allergies Active Allergy Reactions Criticality Noted Date [...] Strip 3 2 Active OneTouch Delica Plus [id number] USE TO CHECK GLUCOSE ONCE DAILY 100 [...] for Constipation. 15 Tablet 0 4 Active Enoxaparin Sodium 100 MG/ML Injection Solution Prefilled Syringe (Lovenox) Inject 50 mg under the skin in the morning and 50 mg before bedtime. 100 mL 2 4 Active predniSONE 20 MG Oral Tablet (Deltasone) Take 3 Tablets by mouth in the morning. 90 Tablet 0 4 Active Sulfamethoxazole-Tri methoprim 800-160 MG Oral Tablet (Bactrim DS)Indications:Idiop athic thrombocytopenic purpura (ITP) (HCC) Take 1 Tablet by mouth once a day on Sunday, Sunday, and Sunday only. 15 Tablet 1 4 Active Additional Information Patient not taking.Reported on 02/08/2024 Multiple Vitamins-Minerals (ONE-A-DAY WOMENS 50+ ADVANTAGE) Tablet Take 1 Tablet by mouth in the morning. 0 024 Discontinued documented as of this encounter [...] Next Due Pneumococcal Conjugate Vacci ne, 20-valent (Ybommub24) 05/30/2022 Pneumococcal Polysaccharide PPV23 (Pneumovax) 09/24/2012,07/08/2009(Deferred: Patient [...] encounter Miscellaneous Notes * Telephone Encounter - Marietta North, content development manager - 02/18/2024 12:19 PM EDT Patient calling regarding Lovenox. Requesting this be sent to [facility]. Thank you, [place]etta North Mechanical Expert 02/18/2024,12:19 PM * Telephone Encounter - Mady Izaguirre RN - 02/08/2024 11:27 AM EDT Called back and spoke to Min. Advised that warfarin was discontinued, patient is [...] be watched a little extra for this. [phone] Thank you documented in this encounter Plan of Treatment Upcoming Encounters Date Type Department Care Team (Late st Contact Info) Description 02/19/2024 11:00 AM EDT [facility] [address] [place] [address] Hesham Martell MD, PhD [address] [place] [address] 02/20/2024 7:00 AM EDT Laboratory Lab Mobile Phlebotomy M[facility] [address] [place] [address] Mvmg, Gml Mobile Home Draw [address] [place] [address] 02/20/2024 6:00 PM EDT Anticoagulation Pharmacy Call Center WB 58-[address] Public [place] [address] C[facility]ps, [facility] [place] 58 60 [facility] [place] [address] 02/27/2024 7:00 AM EDT Laboratory Lab Mobile Phlebotomy MVM[facility] [address] [place] [address] Mvmg, Gml [facility] Draw [address] [place] [address] 03/04/2024 1:15 PM EDT Office Visit Hematology/Oncology State Krysta Charlton [address] [place] [address] [phone] Ralph Barron MD 200 [facility] [place] [address] 03/05/2024 7:00 AM EDT Laboratory Lab Mobile Phlebotomy MVM[facility] [address] [place] [address] Mvmg, [facility] [address] [place] [address] 03/12/2024 7:00 AM EDT Laboratory Lab Mobile Phlebotomy MVM[facility] [address] [place] [address] [address] Mvmg, G[facility] Draw [address] [place] [address] [address] 03/19/2024 7:00 AM EDT Laboratory Lab Mobile Phlebotomy MVM[facility] [address] [place] [address] [address] Mvmg, G[facility] [address] [place] [address] [address] 03/26/2024 7:00 AM EDT Laboratory Lab Mobile Phlebotomy MVMG [address] [place] [address] [address] Mvmg, Gml [facility] Draw [address] [place] [address] [address] 04/02/2024 7:00 AM EDT Laboratory Lab Mobile Phlebotomy MVMG [address]20 [place] [address] Mvmg, Gml Mobile Home Draw [address] [place] [address] 04/09/2024 7:00 AM EDT Laboratory Lab Mobile Phlebotomy MVMG [address] [place] [address] Mvmg, Gml [facility] Home Draw [address] [place] [address] 04/16/2024 7:00 AM EDT Laboratory Lab Mobile Phlebotomy MVMG [address] [place] [address] Mvmg, Gml Mobile Home Draw [address] [place] [address] 04/23/2024 7:00 AM EDT Laboratory Lab Mobile Phlebotomy MVMG [address] [place] [address] Mvmg, Gml Mobile Home Draw [address] [place] [address] 04/30/2024 7:00 AM EDT Laboratory Lab Mobile Phlebotomy MVMG [address] [place] [address] Mvmg, Gml Mobile Home Draw [address] [place] [address] 05/07/2024 7:00 AM EDT Laboratory Lab Mobile Phlebotomy MVMG [address] [place] [address] Mvmg, Gml Mobile Home Draw [address] [place] [address] 05/14/2024 7:00 AM EDT Laboratory Lab Mobile Phlebotomy MVMG [address] [place] [address] Mvmg, Gml Mobile Home Draw [address] [place] [address] 05/21/2024 7:00 AM EDT Laboratory Lab Mobile Phlebotomy MVMG [address] [employer] [place] [address] Mvmg, Gml Mobile Home Draw 2520 [facility] [place] [address] 05/28/2024 7:00 AM EDT Laboratory Lab Mobile Phlebotomy MVMG [address] [employer] [place] [address] Mvmg, Gml Mobile Home Draw [address] [facility] [place] [address] 06/04/2024 7:00 AM EDT Laboratory Lab Mobile Phlebotomy MVMG [address] [employer] [place] [address] Mvmg, Gml Mobile Home Draw [address] [place] [address] [place] [address] 06/11/2024 7:00 AM EDT Laboratory Lab Mobile Phlebotomy MVMG [address] [facility] [place] [address] Mvmg, Gml Mobile Home Draw [address] [place] [address] [place] [address] 06/18/2024 7:00 AM EDT Laboratory Lab Mobile Phlebotomy MVMG [address] [facility] [place] [address] Mvmg, Gml Mobile Home Draw [address] [facility] [place] [address] 06/25/2024 7:00 AM EDT Laboratory Lab Mobile Phlebotomy MVMG [address] [place] [address] [place] [address] Mvmg, Gml Mobile Home Draw 25[address] [facility] [place] [address] 08/12/2024 1:20 PM EDT Office Visit [address] [place] [phone] Millie Lovell [address] [place] [address] 02/10/2025 1:40 PM EDT Office Visit Family Medicine [address] [place] [phone] Jewels Greenfield MD [address] [place] [address] [place] [address] Scheduled Procedures Name Priority Associated Diagnoses Date/Ti [...] this encounter Medical Devices Implanted Type Area Plastic Machine Operator Device Identifier Shelf Expiration Date Model / Serial / Lot [place] 18 Liq Embolic Agent - [id number] Implanted:Qty: 1 on 12/31/2023 by Hesham Martell MD, PhD at [facility] [employer] : NEURO CARE [id number] 01/24/2026 105-7100-06 0 / / [id number] Description:Lot #[id number] documented as of this encounter Advance Directives [...]
--- OUTSIDE RECORDS SUMMARY | 2024-03-31 08:16 | External Medical Summary | Summary of Care ---
Author Name Unknown Organization [facility] Address [address] [place] [address] Phone [phone] Care Team Providers Care Tour Actor Name Role Phone Jewels Greenfield MD Primary Care Provide r Reason for Visit * Reason Onset Date Comments Advice 02/08/2024 abbott Encounter Details Date Type Department Care Team ([facility] st Contact Info) Description 02/08/2024 Refill Hematology/Oncology [facility] [address] [place] [phone] Services, Scheduling [address] [place] [address] Allergies Active Allergy Reactions Criticality Noted Date [...] Strip 3 2 Active OneTouch Delica Plus Qlwasb93E USE TO CHECK GLUCOSE ONCE DAILY 100 [...] Next Due Pneumococcal Conjugate Vacci ne, 20-valent ([id number]) 05/30/2022 Pneumococcal Polysaccharide PPV23 (Pneumovax) 09/24/2012,07/08/2009(Deferred: Patient [...] as of this encounter Miscellaneous Notes * Addendum Note - Matthieu Zelaya RN - 02/18/2024 1:24 PM EDTAddended by: MATTHIEU ZELAYA on: 02/18/2024 01:24 PM Modules accepted: Orders * Telephone Encounter - Matthieu Zelaya RN - 02/18/2024 1:[address] Abbott/Dr. Boone- please advise if you wish patient to continue on Lovenox for anticoagulation. She was previously on Coumadin however, this was switched when she was inpatient. Per Neurosurgery they are ok with her switching to oral anticoagulation. Please be advised that patient is currently taking Bactrim DS every MWF. Thank you. Pended Lovenox for now. * Telephone Encounter - Marietta North, marine design engineer - 02/18/2024 12:19 PM EDT Patient calling regarding Lovenox. Requesting this be sent to [facility]. Thank you, Marietta North Finger Grip Machine Operator 02/18/2024,12:19 PM * Telephone Encounter - Mady [...] be watched a little extra for this. [phone] Thank you documented in this encounter Plan of Treatment Upcoming Encounters Date Type Department Care Team (Late st Contact Info) Description 02/19/2024 11:00 AM EDT Telemedicine Neurosurgery, [place] [address] [place] [address] Hesham Martell MD, PhD [address] [place] [address] 02/20/2024 7:00 AM EDT Laboratory Lab Mobile Phlebotomy MVMG [address] [place] [address] Mvmg, Gml Mobile Home Draw [address] [place] [address] 02/20/2024 6:00 PM EDT Anticoagulation Pharmacy Call Center 58-[address] [place] [address] Ccps, [facility] 58 60 [place] [address] 02/27/2024 7:00 AM EDT Laboratory Lab Mobile Phlebotomy MVMG [address] [place] [address] Mvmg, Gml Mobile Home Draw [address] [place] [address] 03/04/2024 1:15 PM EDT Office Visit Hematology/Oncology State Krysta Charlton [address] [place] [address] [phone] Ralph Abbott MD [address] [place] [place] [address] 03/05/2024 7:00 AM EDT Laboratory Lab Mobile Phlebotomy MVMG [address] [place] [address] Mvmg, Gml Mobile Home Draw 2520 [facility] [place] [address] 03/12/2024 7:00 AM EDT Laboratory Lab Mobile Phlebotomy MVMG [address] [facility] [place] [address] Mvmg, Gml Mobile Home Draw 2520 [place] [address] 03/19/2024 7:00 AM EDT Laboratory Lab Mobile Phlebotomy MVMG [address] [facility] [place] [address] Mvmg, Gml Mobile Home Draw [address] [place] [address] 03/26/2024 7:00 AM EDT Laboratory Lab Mobile Phlebotomy MVMG [address] [facility] [place] [address] Mvmg, Gml Mobile Home Draw [address] [employer] [facility] [place] [address] 04/02/2024 7:00 AM EDT Laboratory Lab Mobile Phlebotomy MVMG [address] [employer] [employer] [facility] [place] [address] Mvmg, Gml Mobile Home Draw [address] [place] [address] 04/09/2024 7:00 AM EDT Laboratory Lab Mobile Phlebotomy MVMG [address] [place] [address] Mvmg, Gml Mobile Home Draw [address] [employer] [facility] [place] [address] 04/16/2024 7:00 AM EDT Laboratory Lab Mobile Phlebotomy MVMG [address] [employer] [employer] [facility] [place] [address] Mvmg, Gml Mobile Home Draw [address] [place] [address] 04/23/2024 7:00 AM EDT Laboratory Lab Mobile Phlebotomy MVMG [address] [facility] [place] [address] Mvmg, Gml Mobile Home Draw [address] [employer] [employer] [place] [address] 04/30/2024 7:00 AM EDT Laboratory Lab Mobile Phlebotomy MVMG [address] [place] [address] Mvmg, Gml Mobile Home Draw 2520 [facility] [place] [address] 05/07/2024 7:00 AM EDT Laboratory Lab Mobile Phlebotomy MVMG [address] [place] [address] Mvmg, Gml Mobile Home Draw [address] [employer] [employer] [place] [address] 05/14/2024 7:00 AM EDT Laboratory Lab Mobile Phlebotomy MVMG [address] [place] [address] Mvmg, Gml Mobile Home Draw [address] [employer] [address] 05/21/2024 7:00 AM EDT Laboratory Lab Mobile Phlebotomy MVMG [address] [place] [address] Mvmg, Gml Mobile Home Draw [address] [employer] [address] 05/28/2024 7:00 AM EDT Laboratory Lab Mobile Phlebotomy MVMG [address] [place] [address] Mvmg, Gml Mobile Home Draw [address] [employer] [address] 06/04/2024 7:00 AM EDT Laboratory Lab Mobile Phlebotomy MVMG [address] [place] [address] Mvmg, Gml Mobile Home Draw [address] [employer] [address] 06/11/2024 7:00 AM EDT Laboratory Lab Mobile Phlebotomy MVMG [address] [place] [address] Mvmg, Gml Mobile Home Draw [address] [employer] [address] 06/18/2024 7:00 AM EDT Laboratory Lab Mobile Phlebotomy MVMG [address] [place] [address] Mvmg, Gml Mobile Home Draw 2520 [facility] [place] [address] 06/25/2024 7:00 AM EDT Laboratory Lab Mobile Phlebotomy MVMG 25[address] [facility] [place] [address] Mvmg, Gml Mobile Home Draw [address] [facility] [address] [place] [address] 08/12/2024 1:20 PM EDT Office Visit [address] [phone] Millie Lovell CRNP [address] [place] [address] [place] [address] 02/10/2025 1:40 PM EDT Office Visit [address] [place] [phone] Jewels Greenfield MD [address] [place] [address] [place] [address] Scheduled Procedures Name Priority Associated Diagnoses Date/Ti [...] this encounter Medical Devices Implanted Type Area Nuclear Technologist Device Identifier Shelf Expiration Date Model / Serial / Lot [place] 18 Liq Embolic Agent - [id number] Implanted:Qty: 1 on 12/31/2023 by Hesham Martell MD, PhD at [facility] [employer] : NEURO CARE [id number] 01/24/2026 105-7100-06 0 / / [id number] Description:Lot #[id number] documented as of this encounter Advance Directives [...] Advance Directives occurred with: Patient Care Teams Tour Actor Relationship Specialty Start Date End Date Jewels Greenfield MD [address] [place] [address] [place] [address] PCP - General Family Medicine 02/18/24 documented as of this encounter
--- OUTSIDE RECORDS SUMMARY | 2024-03-31 08:16 | External Medical Summary | Summary of Care ---
Author Name Unknown Organization [facility] Address [address] [place] [address] Phone [phone] Care Team Providers Care Executive Casino Host Name Role Phone Jewels Greenfield MD Primary Care Provide r Reason for Visit * Reason Onset Date Comments Advice 02/18/2024 Dr Barron Encounter Details Date Type Department Care Team ([facility] st Contact Info) Description 02/18/2024 Telephone Hematology/Oncology [facility] [place] [address] [facility] [place] [place] [address] Services, Scheduling [address] [place] [address] Advice (Dr Barron) Allergies Active Allergy Reactions Criticality Noted Date [...] Strip 3 05/15/2022 Active OneTouch Delica Plus [id number] USE TO CHECK GLUCOSE ONCE DAILY 100 [...] Next Due Pneumococcal Conjugate Vacci ne, 20-valent ([id number]) 05/30/2022 Pneumococcal Polysaccharide PPV23 (Pneumovax) 09/24/2012,07/08/2009(Deferred: Patient [...] Telephone Encounter - Juni Zelaya, RN - 02/18/2024 4:58 PM EDT Called [facility] back. They advise that they only carry 30mg and 60mg syringes but have been advising the patient on how to give 50mg dose. Gave verbal order for 60mg syringes as they dispensed before for 30 day supply, will plan on discussing oral anticoagulants with Dr. Barron upon his return. * Telephone Encounter - Fela Carrera OSA - 02/18/2024 4:16 PM EDT [place] pt. I have [facility] calling regarding pt's medication for Enoxaparin that was sent over. Needs clarification. PLease call Min at [phone] Thank you! documented in this encounter Plan of Treatment Upcoming Encounters Date Type Department Care Team (Late st Contact Info) Description 02/19/2024 11:00 AM EDT Telemedicine Neurosurgery, [place] [address] [place] [address] Hesham Martell MD, PhD [address] [place] [address] 02/20/2024 7:00 AM EDT Laboratory Lab Mobile Phlebotomy [facility] [address] [place] [address] Mvmg, Gm Mobile Home Draw [address] [place] [address] 02/20/2024 6:00 PM EDT Anticoagulation Pharmacy Call Center WB [address] Public [place] [address] [facility] 58 60 [facility] [place] [address] 02/27/2024 7:00 AM EDT Laboratory Lab Mobile Phlebotomy [facility] [address] [place] [address] Mvmg, Gml Mobile Home Draw [address] [place] [address] 03/04/2024 1:15 PM EDT Office Visit Hematology/Oncology [facility] [place] [address] [facility] [place] [id number] Ralph Barron MD 200 [facility] [place] [address] 03/05/2024 7:00 AM EDT Laboratory Lab Mobile Phlebotomy M[facility] [address] [employer] [place] [address] Mvmg, Gml Mobile Home Draw [address] [place] [address] 03/12/2024 7:00 AM EDT Laboratory Lab Mobile Phlebotomy [facility] [address] [place] [address] Mvmg, Gml Mobile Home Draw [address] [place] [address] 03/19/2024 7:00 AM EDT Laboratory Lab Mobile Phlebotomy [facility] [address] [place] [address] Mvmg, Gml Mobile Home Draw [address] [place] [address] 03/26/2024 7:00 AM EDT Laboratory Lab Mobile Phlebotomy M[facility] [address] [employer] [place] [address] Mvmg, Gml Mobile Home Draw [address] [place] [address] 04/02/2024 7:00 AM EDT Laboratory Lab Mobile Phlebotomy [facility] [address] [place] [address] Mvmg, Gml Mobile Home Draw [address] [place] [address] 04/09/2024 7:00 AM EDT Laboratory Lab Mobile Phlebotomy [facility] [address] [place] [address] Mvmg, Gml Mobile Home Draw [address] [place] [address] 04/16/2024 7:00 AM EDT Laboratory Lab Mobile Phlebotomy M[facility] [address] [place] [address] Mvmg, Gml Mobile Home Draw 2520 [facility] [place] [address] 04/23/2024 7:00 AM EDT Laboratory Lab Mobile Phlebotomy M[facility] [address] [place] [facility] [place] [address] Mvmg, Gml Mobile Home Draw [address] [place] [address] 04/30/2024 7:00 AM EDT Laboratory Lab Mobile Phlebotomy M[facility] [address] [place] [address] Mvmg, Gml Mobile Home Draw [address] [place] [address] 05/07/2024 7:00 AM EDT Laboratory Lab Mobile Phlebotomy M[facility] [address] [place] [address] Mvmg, Gml Mobile Home Draw [address] [place] [address] 05/14/2024 7:00 AM EDT Laboratory Lab Mobile Phlebotomy M[facility] [address] [employer] [facility] [place] [address] Mvmg, Gml Mobile Home Draw [address] [place] [address] 05/21/2024 7:00 AM EDT Laboratory Lab Mobile Phlebotomy M[facility] [address] [place] [address] Mvmg, Gml Mobile Home Draw [address] [place] [address] 05/28/2024 7:00 AM EDT Laboratory Lab Mobile Phlebotomy M[facility] [address]20 [facility] [place] [address] Mvmg, Gml Mobile Home Draw [address] [place] [address] 06/04/2024 7:00 AM EDT Laboratory Lab Mobile Phlebotomy M[facility] [address] [place], [place] [address] Mvmg, Gml Mobile Home Draw [address] [place], [place] [address] 06/11/2024 7:00 AM EDT Laboratory Lab Mobile Phlebotomy M[facility] [address] [place], [place] [address] Mvmg, Gml Mobile Home Draw [address] [place], [place] [address] 06/18/2024 7:00 AM EDT Laboratory Lab Mobile Phlebotomy M[facility] [address] [place] [address] Mvmg, Gml Mobile Home Draw [address] [place], [place] [address] 06/25/2024 7:00 AM EDT Laboratory Lab Mobile Phlebotomy M[facility] [address] [place], [place] [address] Mvmg, Gml Mobile Home Draw [address] [place], [place] [address] 08/12/2024 1:20 PM EDT Office Visit Family [address] [phone] Millie Lovell CRNP [address] [place] [address] [place] [address] 02/10/2025 1:40 PM EDT Office Visit Family [address] [phone] Jewels Greenfield MD [address] [place] [address] [place] [address] Scheduled Procedures Name Priority Associated Diagnoses Date/Ti [...] this encounter Medical Devices Implanted Type Area Fuel Technician Device Identifier Shelf Expiration Date Model / Serial / Lot [place] 18 Liq Embolic Agent - [id number] Implanted:Qty: 1 on 12/31/2023 by Hesham Martell MD, PhD at [facility] [employer] : NEURO CARE [id number] 01/24/2026 105-7100-06 0 / / [id number] Description:Lot #[id number] documented as of this encounter Advance Directives [...] Advance Directives occurred with: Patient Care Teams Executive Casino Host Relationship Specialty Start Date End Date Jewels Greenfield MD [address] [place] [address] [place] [phone] PCP - General Family Medicine 02/18/24 documented as of this encounter
--- OUTSIDE RECORDS SUMMARY | 2024-03-31 08:16 | External Medical Summary | Summary of Care ---
Author Name Unknown Organization [facility] Address [address] [place] [address] Phone [phone] Care Team Providers Care Engineer Byproduct Name Role Phone Jewels Greenfield MD Primary Care Provide r Reason for Visit * Reason Onset Date Comments Test Results Lab 02/19/2024 Encounter Details Date Type Department Care Team ([facility] st Contact Info) Description 02/19/2024 Telephone Hematology/Oncology [facility] [place] 200 [facility] [place] [phone] Ralph Barron MD 200 [place] [facility] [address] Test Results Lab Allergies Active Allergy Reactions [...] Strip 3 05/15/2022 Active OneTouch Delica Plus [id number] USE TO CHECK GLUCOSE ONCE DAILY 100 [...] Next Due Pneumococcal Conjugate Vacci ne, 20-valent ([id number]) 05/30/2022 Pneumococcal Polysaccharide PPV23 (Pneumovax) 09/24/2012,07/08/2009(Deferred: Patient [...] EDT Laboratory Lab Mobile Phlebotomy M[facility] [address] [place] [address] Mvmg, Gml Mobile Home Draw [address] [place] [address] 02/20/2024 6:00 PM EDT Anticoagulation Pharmacy Call Center 58-60 [facility] [place] [address] [address] 58 60 [facility] [place] [address] 02/27/2024 7:00 AM EDT Laboratory Lab Mobile Phlebotomy [facility] [address] [place] [address] Mvmg, Gml Mobile Home Draw [address] [place] [address] 03/04/2024 1:15 PM EDT Office Visit Hematology/Oncology [place] [address] [place] [address] [phone] Ralph Barron MD [address] [place] [address] [address] 03/05/2024 7:00 AM EDT Laboratory Lab Mobile Phlebotomy [facility] [address] [place] [address] Mvmg, Gml Mobile Home Draw [address] [place] [address] 03/12/2024 7:00 AM EDT Laboratory Lab Mobile Phlebotomy M[facility] 2520 [place] [address] Mvmg, Gml Mobile Home Draw 2520 [place] [address] 03/19/2024 7:00 AM EDT Laboratory Lab Mobile Phlebotomy M[facility] 2520 [place] [address] Mvmg, Gml Mobile Home Draw 2520 [place] [address] 03/26/2024 7:00 AM EDT Laboratory Lab Mobile Phlebotomy [facility] [address]20 [place] [address] Mvmg, Gml Mobile Home Draw 2520 [place] [address] 04/02/2024 7:00 AM EDT Laboratory Lab Mobile Phlebotomy [facility] [address] [place] [address] Mvmg, Gml Mobile Home Draw 2520 [place] [address] 04/09/2024 7:00 AM EDT Laboratory Lab Mobile Phlebotomy M[facility] 25[address] [place] [address] Mvmg, Gml Mobile Home Draw 2520 [place] [address] 04/16/2024 7:00 AM EDT Laboratory Lab Mobile Phlebotomy M[facility] [address] [place] [address] Mvmg, Gml Mobile Home Draw 2520 [place] [address] 04/23/2024 7:00 AM EDT Laboratory Lab Mobile Phlebotomy M[facility] 2520 [place] [address] Mvmg, Gml Mobile Home Draw 2520 [place] [address] 04/30/2024 7:00 AM EDT Laboratory Lab Mobile Phlebotomy M[facility] 2520 [place] [address] Mvmg, Gml Mobile Home Draw 2520 [place] [address] 05/07/2024 7:00 AM EDT Laboratory Lab Mobile Phlebotomy M[facility] [address] [place] [address] Mvmg, Gml Mobile Home Draw 2520 [place] [address] 05/14/2024 7:00 AM EDT Laboratory Lab Mobile Phlebotomy M[facility] [address] [place] [address] Mvmg, Gml Mobile Home Draw [address] [place] [address] 05/21/2024 7:00 AM EDT Laboratory Lab Mobile Phlebotomy M[facility] [address] [place] [address] Mvmg, Gml Mobile Home Draw [address] [place] [address] 05/28/2024 7:00 AM EDT Laboratory Lab Mobile Phlebotomy M[facility] 2520 [employer] [place] [address] Mvmg, Gml Mobile Home Draw [address] [place] [address] 06/04/2024 7:00 AM EDT Laboratory Lab Mobile Phlebotomy M[facility] [address] [place] [address] Mvmg, Gml Mobile Home Draw [address] [place] [address] 06/11/2024 7:00 AM EDT Laboratory Lab Mobile Phlebotomy M[facility] [address] [place] [address] Mvmg, Gml Mobile Home Draw [address] [place] [address] 06/18/2024 7:00 AM EDT Laboratory Lab Mobile Phlebotomy M[facility] [address] [place] [address] Mvmg, Gml Mobile Home Draw 2520 [facility] [place] [address] 06/25/2024 7:00 AM EDT Laboratory Lab Mobile Phlebotomy MVM[facility] [address] [facility] [place] [address] Mvmg, Gm Mobile Home Draw 7800 [facility] [place] [address] 08/12/2024 1:20 PM EDT Office Visit [address] [place] [phone] Millie Lovell CRNP [address] [place] [address] [place] [address] 02/10/2025 1:40 PM EDT Office Visit [address] [phone] Jewels Greenfield MD [address] [place] [address] [place] [address] Scheduled Procedures Name Priority Associated Diagnoses Date/Ti [...] this encounter Medical Devices Implanted Type Area Receiving Tank Operator Device Identifier Shelf Expiration Date Model / Serial / Lot [place] 18 Liq Embolic Agent - [id number] Implanted:Qty: 1 on 12/31/2023 by Hesham Martell MD, PhD at [facility] [employer] : NEURO CARE [id number] 01/24/2026 105-7100-06 0 / / [id number] Description:Lot #[id number] documented as of this encounter Advance Directives [...] Advance Directives occurred with: Patient Care Teams Engineer Byproduct Relationship Specialty Start Date End Date Jewels Greenfield MD [address] [place] [address] [place] Mccon[place] [phone] PCP - General Family Medicine 02/18/24 documented as of this encounter
--- OUTSIDE RECORDS SUMMARY | 2024-03-31 08:16 | External Medical Summary | Summary of Care ---
Author Name Unknown Organization [facility] Address [address] [place] [address] Phone [phone] Care Team Providers Care Store Keeper Name Role Phone Unavailable Primary Care Provider Unavailabl e Reason for Visit * Reason Onset Date Comments Med Request 02/18/2024 Encounter Details Date Type Department Care Team ([facility] st Contact Info) Description 02/18/2024 Telephone Acute Care Treatment Area[address] [address] Janee Sloan MD [address] [facility] Hospitalist Services [place], [place] [id number] Med Request (/) Allergies Active Allergy Reactions Criticality Noted Date [...] Strip 3 05/15/2022 Active OneTouch Delica Plus [id number] USE TO CHECK GLUCOSE ONCE DAILY 100 [...] Next Due Pneumococcal Conjugate Vacci ne, 20-valent ([id number]) 05/30/2022 Pneumococcal Polysaccharide PPV23 (Pneumovax) 09/24/2012,07/08/2009(Deferred: Patient [...] encounter Miscellaneous Notes * Telephone Encounter - Kamila Moore CPhT - 02/18/2024 12:14 PM EDT Transplant team call, transferred Thank you, Kamila Moore CPhT Plant General Manager [facility] Services ([facility])(formerly telepharmacy) 02/18/2024,12:15 PM documented in this encounter Plan of Treatment Upcoming Encounters Date Type Department Care Team (Late st Contact Info) Description 02/19/2024 11:00 AM EDT Telemedicine Neurosurgery, [place] [address] [place] [address] Hesham Martell MD, PhD [address] [place] [address] 02/20/2024 7:00 AM EDT Laboratory Lab Mobile Phlebotomy [facility] [address] [employer] [place] [address] Mvmg, Gml Mobile Home Draw [address] [employer] [place] [address] 02/20/2024 6:00 PM EDT Anticoagulation Pharmacy Call Center 58-[address] [place] [address] [facility] 58 [address] [place] [address] 02/27/2024 7:00 AM EDT Laboratory Lab Mobile Phlebotomy [facility] [address] [employer] [place] [address] Mvmg, Gml Mobile Home Draw [address] [employer] [place] [address] 03/04/2024 1:15 PM EDT Office Visit Hematology/Oncology [place] [address] [place] [address] [phone] Raplh Barron MD [address] [place] [place] [address] 03/05/2024 7:00 AM EDT Laboratory Lab Mobile Phlebotomy M[facility] [address]20 [place] [address] Mvmg, Gml Mobile Home Draw 2520 [place] [address] 03/12/2024 7:00 AM EDT Laboratory Lab Mobile Phlebotomy M[facility] [address] [place] [address] Mvmg, Gml Mobile Home Draw [address]20 [place] [address] 03/19/2024 7:00 AM EDT Laboratory Lab Mobile Phlebotomy M[facility] [address] [place] [address] Mvmg, Gml Mobile Home Draw 2520 [place] [address] 03/26/2024 7:00 AM EDT Laboratory Lab Mobile Phlebotomy M[facility] [address] [place] [address] Mvmg, Gml Mobile Home Draw [address] [place] [address] 04/02/2024 7:00 AM EDT Laboratory Lab Mobile Phlebotomy M[facility] [address] [place] [address] Mvmg, Gml Mobile Home Draw 2520 [place] [address] 04/09/2024 7:00 AM EDT Laboratory Lab Mobile Phlebotomy M[facility] [address] [place] [address] Mvmg, Gml Mobile Home Draw [address] [place] [address] 04/16/2024 7:00 AM EDT Laboratory Lab Mobile Phlebotomy M[facility] [address] [place] [address] Mvmg, Gml Mobile Home Draw [address] [place] [address] 04/23/2024 7:00 AM EDT Laboratory Lab Mobile Phlebotomy M[facility] [address] [place] [address] Mvmg, Gml Mobile Home Draw 2520 [facility] [place] [address] 04/30/2024 7:00 AM EDT Laboratory Lab Mobile Phlebotomy M[facility] 25[address] [facility] [place] [address] Mvmg, Gml Mobile Home Draw 2520 [facility] [place] [address] 05/07/2024 7:00 AM EDT Laboratory Lab Mobile Phlebotomy M[facility] [address] [place] [address] Mvmg, Gml Mobile Home Draw 2520 [facility] [place] [address] 05/14/2024 7:00 AM EDT Laboratory Lab Mobile Phlebotomy M[facility] [address] [place] [address] Mvmg, Gml Mobile Home Draw [address] [place] [address] 05/21/2024 7:00 AM EDT Laboratory Lab Mobile Phlebotomy M[facility] [address] [place] [facility] [place] [address] Mvmg, Gml Mobile Home Draw 2520 [facility] [place] [address] 05/28/2024 7:00 AM EDT Laboratory Lab Mobile Phlebotomy [facility] 25[address] [facility] [place] [address] Mvmg, Gml Mobile Home Draw [address] [place] [address] 06/04/2024 7:00 AM EDT Laboratory Lab Mobile Phlebotomy [facility] [address] [place] [facility] [address] Mvmg, Gml Mobile Home Draw 2520 [facility] [place] [address] 06/11/2024 7:00 AM EDT Laboratory Lab Mobile Phlebotomy [facility] [address] [facility] [place] [address] Mvmg, Gml Mobile Home Draw [address] [place] [address] 06/18/2024 7:00 AM EDT Laboratory Lab Mobile Phlebotomy M[facility] 2520 [facility] [place] [address] Mvmg, Gml Mobile Home Draw 2520 [facility] [place] [address] 06/25/2024 7:00 AM EDT Laboratory Lab Mobile Phlebotomy M[facility] 25[address] [facility] [place] [address] Mvmg, Gml Mobile Home Draw 2520 [facility] [place] [address] 08/12/2024 1:20 PM EDT Office Visit [address] [phone] Millie Lovell CRNP [address] [place] [address] [place] [address] 02/10/2025 1:40 PM EDT Office Visit [address] [phone] Jewels Greenfield MD [address] [place] [address] [place] [address] Scheduled Procedures Name Priority Associated Diagnoses Date/Ti [...] this encounter Medical Devices Implanted Type Area Laborer Golf Course Device Identifier Shelf Expiration Date Model / Serial / Lot [employer] 18 Liq Embolic Agent - [id number] Implanted:Qty: 1 on 12/31/2023 by Hesham Martell MD, PhD at [facility] [employer] : NEURO CARE [id number] 01/24/2026 105-7100-06 0 / / [id number] Description:Lot #[id number] documented as of this encounter Advance Directives [...]
[2024-03-31] MEDS: ONDANSETRON INJ 2 MG/ML 2 ML VIAL IV STA (08:34)
[2024-03-31] MEDS: SODIUM CHLORIDE 0.9% 1,000 ML IV SCH ×2 (08:35→12:57)
--- NOTE | 2024-03-31 08:37 | XRay Report ---
XR chest 1V portable CLINICAL HISTORY: weakness COMPARISON STUDY: Chest radiograph December 14, 2023. Chest CT April 30, 2022. FINDINGS: Elevation of the left hemidiaphragm has increased. Linear left basilar opacity favors atele ctasis. Chronic interstitial thickening is unchanged. Cardiomegaly is unchanged. There is no pneumoth orax or pleural effusion. IMPRESSION: 1. No acute cardiopulmonary findings. 2. Increase in elevation of the left hemidiaphragm. ACT 112: Negative or not required by law. Electronically signed by: Laith Gold M.D. 03/31/2024 8:35 AM
--- NOTE | 2024-03-31 08:41 | Emergency Department Note ---
Impression & Plan Weakness, Vomiting, Anemia, Thrombocytopenia, Acute hyponatremia, Elevated liver enzymes, Abnormal abdominal CT scan, Acute dehydration, Hypocalcemia ED Provider Note NAME: EVANGELINA DELEON AGE: 54 SEX: F : 1970 ARRIVES VIA: Ambulance INFORMANT: [Patient][ems] ED PROVIDER(S): [Chris Wyatt MD] CHIEF COMPLAINT: Illness HISTORY OF PRESENT ILLNESS: The patient is a 54-year-old female who states that she has not been well for 3 weeks. She has had nonbloody diarrhea, nausea with some occasional vomiting, some exertional shortness of breath and cough. She feels washed out and weak. She has had a low-grade fever. She has experienced diffuse abdominal pain. The patient feels that she has not kept up on fluids. She called the ambulance today because she felt so poorly. She states that she just has not improved, she worsens every day. No known sick contacts. In route to the hospital, the patient was given 1 L of IV saline, 4 mg Zofran IV. The Zofran did help her nausea. PMHx/PSHx/Social Hx: See Below PHYSICAL EXAM: GENERAL: Patient is in no acute distress. HEENT: No acute trauma, normocephalic atraumatic, mucous membranes dry, no nasal congestion. NECK: No stridor, no adenopathy, no meningismus, trachea is midline. LUNGS: Clear to auscultation bilaterally, no wheeze, no rhonchi, breath sounds equal. HEART: Mildly tachycardic with a subtle systolic murmur, regular rhythm ABDOMEN: Soft, mildly diffusely tender, no distention. EXTREMITIES: No cyanosis, full range of motion of all the joints without pain or difficulty. NEUROLOGIC: Oriented x 3, no acute motor or sensory deficits, no focal weakness. SKIN: Potential mild jaundice, no diaphoresis. Pale. Rectal: Brown stool, heme-negative. This exam was performed with a female nurse icu rn. DIFFERENTIAL DIAGNOSIS: Dehydration, electrolyte imbalance, pneumonia, bronchitis, colitis, diverticulitis, UTI, among others. EMERGENCY DEPARTMENT PROCEDURES: MEDICAL DECISION MAKING: There is no leukocytosis. The patient is anemic with a hemoglobin of 7.9. This is a drop for her. I did perform a rectal exam, stool was brown and heme- negative. The patient's platelet count is low at 41. She has a history of thrombocytopenia but today's value is lower than her baseline. INR is high at 2.5. Sodium is low at 127. There is a mild creatinine elevation consistent with dehydration and some mild acute kidney injury. Calcium was low. Liver enzymes were elevated. Lactic acid level was not elevated making sepsis less likely. ECG shows a sinus tachycardia, no ischemia. Cardiac enzyme testing x 1 is slightly elevated. This troponin elevation could be secondary to cardiac injury or just mismatch from her other issues. TSH was high however, the T4 was normal. Urinalysis did not show findings of infection. Stool bio fire did return negative. Anaplasmosis and Babesia screens were negative, the send out testing is pending. Lyme disease testing was negative. Respiratory bio fire was negative. Chest x-ray did not show pneumonia or CHF. Abdominal and pelvis CT showed potential lymphoproliferative disease. No bowel obstruction. On exam, the patient appeared mildly jaundiced, she was pale. She was dehydrated, she was initially tachycardic and mildly hypotensive. The patient was aggressively managed. She received 1 L of IV saline. This was given in addition to the liter of saline administered by EMS. She received IV calcium gluconate because of the hypocalcemia. She received IV cefepime as empiric antibiotic coverage. With our treatment, the patient's blood pressure has improved, her pulse has improved. She appears more comfortable. Given the patient's findings, she is in need of hospitalization. The underlying issue causing all of her difficulty is not yet clear. Further workup is warranted. I spoke with the patient, she understands the need for a hospital stay. I did speak with case management, the on-call hospitalist was consulted. Prior/Outside records/notes reviewed: Today's EMS notes describing her presentation and transport to this hospital. ECG per my interpretation: Indication was weakness. The ECG shows a sinus tachycardia with a rate of 115. There is no acute ST elevation. There is a potential old inferior infarct. There is poor R wave progression. No PVCs. QTc is 467. Continuous Cardiac Monitoring per my interpretation: An order was placed for continuous cardiac monitoring. The monitor shows a rate of 106 with sinus tachycardia. Imaging/x-ray results per my interpretation: Chest x-ray does not show mediastinal widening, pneumonia or pneumothorax. Chronic Medical/Social conditions affecting care: Care/Management discussed with: Case management, the on-call hospitalist. Level of care consideration(s): After review of the information above and other included data: --I believe the patient requires escalation of care to admission Critical Care Note: I have personally spent 42 minutes of critical care time in the direct management of this patient. This includes bedside care, interpretation of diagnostic studies, and testing, discussion with consultants, patient, and family members, and other required patient management activities. This 42 minutes is in excess of all separately billable procedures. DISPOSITION: Admission Past Med/Surg History Problem List (Updated 03/31/24 @ 17:17 by Chris Wyatt MD) Hypocalcemia (Acute) Acute dehydration (Acute) Abnormal abdominal CT scan (Acute) Elevated liver enzymes (Acute) Acute hyponatremia (Acute) Thrombocytopenia (Acute) Anemia (Acute) Vomiting (Acute) Weakness (Acute) Transaminitis Hepatic lesion Pneumonia Lymphoproliferative disease Splenic infarct Surgical wound, non healing (Acute) Cellulitis (Acute) Abdominal pain (Acute) Post op infection (Acute) Hematoma of abdominal wall Superficial incisional infection of surgical site Cholelithiasis and cholecystitis without obstruction Encounter for pre-operative examination Lab test negative for COVID-19 virus (Acute) Complicated migraine Dizzy spells Coagulopathy Elevated LFTs Metabolic syndrome Status post cholecystectomy GERD (gastroesophageal reflux disease) Hyperlipidemia DM type 2 (diabetes mellitus, type 2) denies Hypothyroidism APL (antiphospholipid syndrome) Chronic ITP (idiopathic thrombocytopenia) DX'D 2010-/ [facility] Medical History Hx of deep venous thrombosis hx- left leg On anticoagulant therapy Hx of migraines History of COVID-19 2020 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 Chronic obstructive pulmonary disease HX-no longer uses inhaler Anxiety Surgical History Status post cholecystectomy History of myringotomy History of tonsillectomy and adenoidectomy History of tooth extraction History of colonoscopy History of bone marrow biopsy History of hysterectomy Family History Mother Diabetes Father Stroke Other No family history of adverse response to anesthesia Social History Smoking Status: Former smoker Tobacco Type: Cigarettes Cigarettes Per Day: 1 ppd- advised; Smoking End Date: 2018; Second Hand Exposure: No; Do You Dip or Chew Tobacco: No; Tobacco Cessation Education Requested by Patient: No Hx Alcohol Use: Yes Alcohol type: beer Hx Substance Use: No Preferred Language: Thai Communication Ability: Effective Visual Impairment: Limited Hearing Ability: Normal Coach Tour Driver Required: No Beliefs That Will Affect Care: None Current Living Situation: Alone current occupation: DOES NOT WORK Other Information That Helps Us Care for You: No Feels Safe at Home: Yes Assistive Devices: Denture - Upper, Denture - Lower and Walker Allergies Allergies Allergy/AdvReac Type Severity Reaction Status Date / Time codeine Allergy Intermediate Hives Verified 12/25/23 11:41 morphine Allergy Mild itching Verified 12/25/23 11:41 piperacillin [From Zosyn] Allergy Rash Verified 12/25/23 11:41 tazobactam [From Zosyn] Allergy Rash Verified 12/25/23 11:41 Home Meds Home Medications Medication Instructions Recorded Confirmed Lactobacillus acidophilus 1 cap PO DAILY 08/30/22 03/31/24 acetaminophen 500 mg tablet 500 - 1,000 mg PO Q6H PRN q6 08/30/22 03/31/24 (Tylenol Extra Strength) levothyroxine 50 mcg tablet 50 mcg PO QAM 08/30/22 03/31/24 loratadine 10 mg tablet 10 mg PO QAM PRN Allergy Symptoms 08/30/22 03/31/24 pantoprazole 40 mg tablet,delayed 40 mg PO QAM 08/30/22 03/31/24 release simvastatin 20 mg tablet 20 mg PO HS 08/30/22 03/31/24 levetiracetam 500 mg tablet 500 mg PO BID 11/29/23 03/31/24 (Keppra) polyethylene glycol 3350 17 gram 17 g PO DAILY PRN Constipation 12/25/23 03/31/24 oral powder packet (Miralax) enoxaparin 60 mg/0.6 mL 50 mg subcut BID 03/31/24 03/31/24 subcutaneous syringe sennosides 8.6 mg-docusate sodium 8.6 - 50 tab PO DAILY PRN 03/31/24 03/31/24 50 mg tablet (Senexon-S) Constipation Results & Data (ED) Vital Signs Vital Signs - 24 hr 03/31/24 08:03 03/31/24 08:22 03/31/24 08:27 Temperature 37.2 C Temperature Source Oral Pulse Rate 115 H 106 H Pulse Rate [Right Finger] 109 H Pulse Rhythm Regular Pulse Rhythm [Right Finger] Regular Pulse Strength Normal Pulse Strength [Right Finger] Normal Respiratory Rate 16 27 H Respiratory Effort / Characteristics Labored Short of Breath Labored Respiratory Depth Normal Normal Respiratory Pattern Regular Regular Blood Pressure 100/67 Blood Pressure [Right Arm] 98/63 L Blood Pressure Mean 78 Blood Pressure Mean [Right Arm] 74 Blood Pressure Position Semi-fowlers Blood Pressure Position [Right Arm] Semi-fowlers Pulse Oximetry 94 95 Oxygen Delivery Method Room Air Room Air Sepsis Recent Fever Within 48 Hours No Sepsis New/Unexplained Change in Mental Status No Sepsis Action Taken by Nursing No Action Required 03/31/24 08:27 03/31/24 08:27 Temperature Temperature Source Pulse Rate 104 H Pulse Rate [Right Finger] 102 H Pulse Rhythm Regular Pulse Rhythm [Right Finger] Regular Pulse Strength Pulse Strength [Right Finger] Normal Respiratory Rate 27 H 18 Respiratory Effort / Characteristics Spontaneous Respiratory Depth Normal Respiratory Pattern Regular Tachypnea Blood Pressure Blood Pressure [Right Arm] 108/59 L Blood Pressure Mean Blood Pressure Mean [Right Arm] 75 Blood Pressure Position Blood Pressure Position [Right Arm] Semi-fowlers Pulse Oximetry 94 96 Oxygen Delivery Method Room Air Room Air Sepsis Recent Fever Within 48 Hours Sepsis New/Unexplained Change in Mental Status Sepsis Action Taken by Long Term Medications Current Medication List: was personally reviewed by me Laboratory Data Attestation: I reviewed the patient's lab results. 03/31/24 08:17 03/31/24 08:17 Lab Results 03/31/24 03/31/24 03/31/24 Range/Units 08:17 08:17 08:19 WBC 8.87 (4.8-10.8) K/ul RBC 2.59 L (4.20-5.40) M/uL Hgb 7.9 L (12.0-16.0) g/dl Hct 23.6 L (37.0-47.0) % MCV 91.1 (80.0-100.0) fL MCH 30.5 (25.0-34.0) pg MCHC 33.5 (32.0-36.0) g/dL RDW Std Deviation 49.5 H (36.4-46.3) fL RDW Coeff of Mitch 15.1 H (11.5-14.5) % Plt Count 41 L (130-400) K/uL MPV 11.7 (9.4-12.4) fL Immature Gran % (Auto) 3.5 % Neut % (Auto) 76.2 % Lymph % (Auto) 8.6 % Bingham % (Auto) 11.6 % Eos % (Auto) 0.0 % Baso % (Auto) 0.1 % Neut # (Auto) 6.76 H (1.40-6.50) K/uL Lymph # (Auto) 0.76 L (1.20-3.40) K/uL [place]ingham # (Auto) 1.03 H (0.11-0.59) K/uL Eos # (Auto) 0.00 (0.00-0.50) K/uL Baso # (Auto) 0.01 (0.00-0.20) K/uL Immature Gran # (Auto) 0.31 H (0.01-0.20) K/uL RBC Morphology Unremarkable PT 25.0 H (9.0-12.0) Seconds INR 2.5 H (0.9-1.1) Sodium 127 L (136-145) mmol/L Potassium 3.8 (3.5-5.1) mmol/L Chloride 95 L (98-107) mmol/L Carbon Dioxide 22 (21-32) mmol/L Anion Gap 10 (3-11) BUN 19 (6-23) mg/dl Creatinine 1.21 H (0.6-1.2) mg/dl Est Cr Clr Drug Dosing 54.8 ml/min Est GFR ( Amer) 58.3 ml/min Est GFR (Non-Af Amer) 50.3 ml/min BUN/Creatinine Ratio 15.7 (10-20) Glucose 105 H (70-99(Fasting)) mg/dl Calcium 7.6 L (8.6-10.3) mg/dl Magnesium 1.7 (1.7-2.4) mg/dl Total Bilirubin 1.5 H (0.2-1.0) mg/dl AST 199 H (13-39) U/L ALT 118 H (7-52) U/L Alkaline Phosphatase 179 H (34-104) U/L Troponin I High Sens 64.7 H* (0-14) pg/ml Total Protein 6.9 (6.0-8.3) gm/dl Albumin 2.6 L (3.4-5.0) gm/dl Globulin 4.3 H (2.5-4.0) gm/dl Albumin/Globulin Ratio 0.6 L (0.9-2) Procalcitonin 10.90 H Cancelled (0-0.5) ng/ml TSH 8.454 H (0.300-4.500) uIu/ml Free T4 0.98 (0.61-1.60) ng/dl Stl C. cayetanensis PCR (NotDetected) Stool Rotavirus A PCR (NotDetected) Stl Adenov F 40/41 PCR (NotDetected) Stool Astrovirus (PCR) (NotDetected) Stool Campylobacter PCR (NotDetected) Stool Cryptosporidium PCR (NotDetected) Stl E.coli Shiga Tox PCR (NotDetected) Stl Enterotoxigenic E PCR (NotDetected) Stool EPEC (PCR) (NotDetected) Stool EAEC (PCR) (NotDetected) Stl E. histolytica PCR (NotDetected) Stool Giardia Lamblia PCR (NotDetected) Stool Salmonella PCR (NotDetected) Stool Sapovirus (PCR) (NotDetected) Stl P. shigelloides PCR (NotDetected) Stl Shigella/EIEC PCR (NotDetected) St Y.enterocolitica PCR (NotDetected) Stool Vibrio (PCR) (NotDetected) Stl Vibrio cholerae PCR (NotDetected) Stl Norovirus GI/GII PCR (NotDetected) Adenovirus (PCR) Not Detected (NotDetected) Anaplasma Smear See Comment Babesia Smear See Comment B. pertussis DNA (PCR) Not Detected (NotDetected) B.parapertussis DNA PCR Not Detected (NotDetected) Lyme Disease Screen Negative (Negative) C. pneumoniae DNA (PCR) Not Detected (NotDetected) Coronavirus OC43 (PCR) Not Detected (NotDetected) Coronavirus HKU1 (PCR) Not Detected (NotDetected) Coronavirus 229E (PCR) Not Detected (NotDetected) SARS-CoV-2 (PCR) Not Detected (NotDetected) Coronavirus NL63 (PCR) Not Detected (NotDetected) Human Metapneumovir PCR Not Detected (NotDetected) Influenza Type A (PCR) Not Detected (NotDetected) Influenza Type B (PCR) Not Detected (NotDetected) M. pneumoniae (PCR) Not Detected (NotDetected) Parainfluenza 1 (PCR) Not Detected (NotDetected) Parainfluenza 2 (PCR) Not Detected (NotDetected) Parainfluenza 3 (PCR) Not Detected (NotDetected) Parainfluenza 4 (PCR) Not Detected (NotDetected) RSV (PCR) Not Detected (NotDetected) Entero/Rhino (PCR) Not Detected (NotDetected) Blood Type Antibody Screen Antibody Identification 03/31/24 03/31/24 Range/Units 08:20 10:11 WBC (4.8-10.8) K/ul RBC (4.20-5.40) M/uL Hgb (12.0-16.0) g/dl Hct (37.0-47.0) % MCV (80.0-100.0) fL MCH (25.0-34.0) pg MCHC (32.0-36.0) g/dL RDW Std Deviation (36.4-46.3) fL RDW Coeff of Mitch (11.5-14.5) % Plt Count (130-400) K/uL MPV (9.4-12.4) fL Immature Gran % (Auto) % Neut % (Auto) % Lymph % (Auto) % Bingham % (Auto) % Eos % (Auto) % Baso % (Auto) % Neut # (Auto) (1.40-6.50) K/uL Lymph # (Auto) (1.20-3.40) K/uL Bingham # (Auto) (0.11-0.59) K/uL Eos # (Auto) (0.00-0.50) K/uL Baso # (Auto) (0.00-0.20) K/uL Immature Gran # (Auto) (0.01-0.20) K/uL RBC Morphology PT (9.0-12.0) Seconds INR (0.9-1.1) Sodium (136-145) mmol/L Potassium (3.5-5.1) mmol/L Chloride (98-107) mmol/L Carbon Dioxide (21-32) mmol/L Anion Gap (3-11) BUN (6-23) mg/dl Creatinine (0.6-1.2) mg/dl Est Cr Clr Drug Dosing ml/min Est GFR ( Amer) ml/min Est GFR (Non-Af Amer) ml/min BUN/Creatinine Ratio (10-20) Glucose (70-99(Fasting)) mg/dl Calcium (8.6-10.3) mg/dl Magnesium (1.7-2.4) mg/dl Total Bilirubin (0.2-1.0) mg/dl AST (13-39) U/L ALT (7-52) U/L Alkaline Phosphatase (34-104) U/L Troponin I High Sens 57.9 H* (0-14) pg/ml Total Protein (6.0-8.3) gm/dl Albumin (3.4-5.0) gm/dl Globulin (2.5-4.0) gm/dl Albumin/Globulin Ratio (0.9-2) Procalcitonin (0-0.5) ng/ml TSH (0.300-4.500) uIu/ml Free T4 (0.61-1.60) ng/dl Stl C. cayetanensis PCR Not Detected (NotDetected) Stool Rotavirus A PCR Not Detected (NotDetected) Stl Adenov F 40/41 PCR Not Detected (NotDetected) Stool Astrovirus (PCR) Not Detected (NotDetected) Stool Campylobacter PCR Not Detected (NotDetected) Stool Cryptosporidium PCR Not Detected (NotDetected) Stl E.coli Shiga Tox PCR Not Detected (NotDetected) Stl Enterotoxigenic E PCR Not Detected (NotDetected) Stool EPEC (PCR) Not Detected (NotDetected) Stool EAEC (PCR) Not Detected (NotDetected) Stl E. histolytica PCR Not Detected (NotDetected) Stool Giardia Lamblia PCR Not Detected (NotDetected) Stool Salmonella PCR Not Detected (NotDetected) Stool Sapovirus (PCR) Not Detected (NotDetected) Stl P. shigelloides PCR Not Detected (NotDetected) Stl Shigella/EIEC PCR Not Detected (NotDetected) St Y.enterocolitica PCR Not Detected (NotDetected) Stool Vibrio (PCR) Not Detected (NotDetected) Stl Vibrio cholerae PCR Not Detected (NotDetected) Stl Norovirus GI/GII PCR Not Detected (NotDetected) Adenovirus (PCR) (NotDetected) Anaplasma Smear Babesia Smear B. pertussis DNA (PCR) (NotDetected) B.parapertussis DNA PCR (NotDetected) Lyme Disease Screen (Negative) C. pneumoniae DNA (PCR) (NotDetected) Coronavirus OC43 (PCR) (NotDetected) Coronavirus HKU1 (PCR) (NotDetected) Coronavirus 229E (PCR) (NotDetected) SARS-CoV-2 (PCR) (NotDetected) Coronavirus NL63 (PCR) (NotDetected) Human Metapneumovir PCR (NotDetected) Influenza Type A (PCR) (NotDetected) Influenza Type B (PCR) (NotDetected) M. pneumoniae (PCR) (NotDetected) Parainfluenza 1 (PCR) (NotDetected) Parainfluenza 2 (PCR) (NotDetected) Parainfluenza 3 (PCR) (NotDetected) Parainfluenza 4 (PCR) (NotDetected) RSV (PCR) (NotDetected) Entero/Rhino (PCR) (NotDetected) Blood Type A Positive Antibody Screen POSITIVE A Antibody Identification Unidentified Low Frequency Ab Administered Medications Cefepime HCl 2,000 mg/ Syringe 20 mls @ 5 mls/min IV Q12H MATTHIAS; Protocol Stop: 04/07/24 12:29 Last Admin: 03/31/24 13:02 Dose: 5 mls/min Documented By: EP Metronidazole (Flagyl) 500 mg in 100 mls @ 100 mls/hr IV Q8H MATTHIAS; Protocol Stop: 04/07/24 12:59 Last Infusion: 03/31/24 16:24 Dose: Infused Documented By: JOSE MARIA Admin: 03/31/24 15:12 Dose: 100 mls/hr Documented By: JOSE MARIA Sodium Chloride (Nss) 1,000 mls @ 80 mls/hr IV .[id number] MATTHIAS Stop: 04/30/24 12:12 Last Admin: 03/31/24 12:57 Dose: 80 mls/hr Documented By: EP Discontinued Medications Sodium Chloride (Nss) 1,000 mls @ 999 mls/hr IV .[id number] MATTHIAS Stop: 03/31/24 09:30 Last Infusion: 03/31/24 09:53 Dose: Infused Documented By: Admin: 03/31/24 08:35 Dose: 999 mls/hr Documented By: RONNIE Calcium Gluconate () 1,000 mg in 60 mls @ 240 mls/hr IV NOW STA Stop: 03/31/24 10:54 Last Infusion: 03/31/24 12:17 Dose: Infused Documented By: JOSE MARIA Admin: 03/31/24 11:10 Dose: 240 mls/hr Documented By: RONNIE Calcium Gluconate () 1,000 mg in 60 mls @ 240 mls/hr IV NOW STA Stop: 03/31/24 12:27 Last Infusion: 03/31/24 15:21 Dose: Infused Documented By: JOSE MARIA Admin: 03/31/24 13:02 Dose: 240 mls/hr Documented By: JOSE MARIA Ioversol (Optiray 320 100ml) 94 ml IV ONCE ONE Stop: 03/31/24 09:29 Last Admin: 03/31/24 09:28 Dose: 94 ml Documented By: JEREMIE Ondansetron HCl (Ondansetron Inj 2 Mg/Ml 2 Ml Vial) 4 mg IV NOW STA Stop: 03/31/24 08:24 Last Admin: 03/31/24 08:34 Dose: Not Given Documented By: RONNIE Imaging Data Radiologist's Impression: Chest X-Ray 03/31/24 08:23 XR chest 1V portable CLINICAL HISTORY: weakness COMPARISON STUDY: Chest radiograph December 14, 2023. Chest CT April 30, 2022. FINDINGS: Elevation of the left hemidiaphragm has increased. Linear left basilar opacity favors atelectasis. Chronic interstitial thickening is unchanged. Cardiomegaly is unchanged. There is no pneumothorax or pleural effusion. IMPRESSION: 1. No acute cardiopulmonary findings. 2. Increase in elevation of the left hemidiaphragm. ACT 112: Negative or not required by law. Electronically signed by: Laith Gold M.D. 03/31/2024 8:35 AM Abdomen/Pelvis CT 03/31/24 08:37 CT OF THE ABDOMEN AND PELVIS WITH CONTRAST CLINICAL HISTORY: pain, fever, loose stool COMPARISON STUDY: CT of the abdomen and pelvis March 29, 2023. Left hip ultrasound November 03, 2023. TECHNIQUE: Following IV administration of 94 mL of Optiray, axial images of the abdomen and pelvis were obtained from the lung bases to the proximal femurs. Images were reviewed in the axial, sagittal, and coronal planes. IV contrast was administered without complication. Automated exposure control was utilized for the study. A dose lowering technique was utilized adhering to the principles of ALARA. CT DOSE: 1226.12 mGy.cm FINDINGS: Elevation of the left hemidiaphragm is noted. An irregular 1.7 cm right lower lobe airspace opacity on image 33 of 373 is noted. There are mild groundglass opacities within the lower lobes. No pneumatosis, free air or portal venous gas is present. Hepatosplenomegaly has increased since CT of March 29, 2023. The spleen is markedly enlarged. The liver is moderately enlarged. Several ill-defined hypodense foci within the liver have developed since prior CT. The largest is a 3.5 cm focus within the right hepatic lobe on image 111. A 7.6 x 3.8 cm hypodense focus within the spleen represents a splenic infarct. There is a smaller additional splenic infarct. There is no perisplenic fluid. There is mild stranding within the raf hepatis. No biliary ductal dilatation is identified status post cholecystectomy. Adrenal glands, kidneys and pancreas are normal. There is no evidence for a bowel obstruction. Sigmoid diverticulosis is present. No evidence for acute diverticulitis. Abdominal and pelvic lymphadenopathy has developed since prior CT T. A raf hepatis lymph node on image 135 measures 2.1 x 2.3 cm. Left para-aortic lymph node on image 154 measures 1.8 x 1.5 cm. Left external iliac lymph node on image 270 measures 1.9 x 1.3 cm. Additional left external iliac lymph node on image 310 measures 2.9 x 1.2 cm. IMPRESSION: 1. Interval progression of hepatosplenomegaly since CT of March 29, 2023 and a new 7.6 x 3.8 cm splenic infarct. Development of abdominal and pelvic lymphadenopathy, as described above. Overall, these findings raise the possibility of a lymphoproliferative disorder. Oncology consultation is recommended. 2. Multiple new ill-defined hypodense foci within the liver. These are entirely nonspecific although could be seen in the setting of lymphoma. Liver protocol MRI may be of benefit in further characterization. 3. No bowel obstruction. No bowel wall thickening. 4. 1.7 cm irregular right lower lobe airspace opacity and groundglass opacities within the lower lobes. The findings favor an infectious process. However, a follow-up chest CT in one month to ensure resolution. ACT 112: Positive. There are findings on this exam that require communication between the performing entity and the patient following Patient Test Result Information Act ([place] Act 112) guidelines. Electronically signed by: Laith Gold M.D. 03/31/2024 9:56 AM Discharge Plan Visit Data Chief Complaint: Illness Stated Complaint: DIARRHEA, HEADACHE, WEAK, COUGH, CHEST PAIN, ED Provider: Chris Wyatt Discharge Problem: Weakness, Vomiting, Anemia, Thrombocytopenia, Acute hyponatremia, Elevated liver enzymes, Abnormal abdominal CT scan, Acute dehydration, Hypocalcemia Patient Disposition: Admitted As Inpatient Condition: Fair Discharge Instructions Interventions: ED Discharge Assessment Last Done: 03/31/24 11:30 Discharge Problem: Vomiting Qualifiers: Vomiting type: unspecified Nausea presence: with nausea Qualified Code(s): R 11.2 - Nausea with vomiting, unspecified Anemia Qualifiers: Anemia type: unspecified type Qualified Code(s): D64.9 - Anemia, unspecified
[2024-03-31 08:54] LABS: Albumin Globulin Ratio 0.6 (0.9-2); Albumin Level 2.6 gm/dl (3.4-5.0); BUN Creatinine Ratio 15.7 (10-20); Bilirubin,Total 1.5 mg/dl (0.2-1.0); Calcium 7.6 mg/dl (8.6-10.3); Creatinine Clr Calc Pharmacy 54.8 ml/min; Est GFR (African American) 58.3 ml/min; Est GFR (Non-African American) 50.3 ml/min; Globulin 4.3 gm/dl (2.5-4.0); Magnesium 1.7 mg/dl (1.7-2.4); Potassium 3.8 mmol/L (3.5-5.1); Total Protein 6.9 gm/dl (6.0-8.3)
[2024-03-31 09:07] LABS: Troponin I High Sensitivity 64.7 pg/ml (0-14)
[2024-03-31 09:10] LABS: Thyroid Stimulating Hormone 8.454 uIu/ml (0.300-4.500)
[2024-03-31 09:20] LABS: Adenovirus PCR Not Detected (NotDetected); Bordetella parapertussis PCR Not Detected (NotDetected); Bordetella pertussis PCR Not Detected (NotDetected); Chlamydia pneumoniae PCR Not Detected (NotDetected); Coronavirus 229E PCR Not Detected (NotDetected); Coronavirus CoV-2 (COVID19)PCR Not Detected (NotDetected); Coronavirus HKU1 PCR Not Detected (NotDetected); Coronavirus NL63 PCR Not Detected (NotDetected); Coronavirus OC43PCR Not Detected (NotDetected); Human Metapneumovirus PCR Not Detected (NotDetected); Influenza A PCR Not Detected (NotDetected); Influenza B PCR Not Detected (NotDetected); Mycoplasma pneumoniae PCR Not Detected (NotDetected); Parainfluenza Virus 1 PCR Not Detected (NotDetected); Parainfluenza Virus 2 PCR Not Detected (NotDetected); Parainfluenza Virus 3 PCR Not Detected (NotDetected); Parainfluenza Virus 4 PCR Not Detected (NotDetected); Respiratory Syncytial VirusPCR Not Detected (NotDetected); Rhinovirus/Enterovirus PCR Not Detected (NotDetected)
[2024-03-31] MEDS: OPTIRAY 320 100ml IV ONE (09:28)
[2024-03-31 09:40] LABS: Basophils # (auto) 0.01 K/uL (0.00-0.20); Basophils % (auto) 0.1 %; Hematocrit (blood only) 23.6 % (37.0-47.0); Hemoglobin 7.9 g/dl (12.0-16.0); Immature Granulocytes # (auto) 0.31 K/uL (0.01-0.20); Immature Granulocytes % (auto) 3.5 %; Lymphocytes # (auto) 0.76 K/uL (1.20-3.40); Lymphocytes % (auto) 8.6 %; Mean Corpuscular Hemoglobin 30.5 pg (25.0-34.0); Mean Corpuscular Hgb Conc 33.5 g/dL (32.0-36.0); Mean Corpuscular Volume 91.1 fL (80.0-100.0); Mean Platelet Volume 11.7 fL (9.4-12.4); Monocytes # (auto) 1.03 K/uL (0.11-0.59); Monocytes % (auto) 11.6 %; Neutrophils # (auto) 6.76 K/uL (1.40-6.50); Neutrophils % (auto) 76.2 %; Platelet Count 41 K/uL (130-400); RBC Morphology Unremarkable; RDW Coefficient of Variation 15.1 % (11.5-14.5); RDW Standard Deviation 49.5 fL (36.4-46.3); Red Blood Count 2.59 M/uL (4.20-5.40); White Blood Count 8.87 K/ul (4.8-10.8)
[2024-03-31 09:46] LABS: T4 Free Thyroxine 0.98 ng/dl (0.61-1.60)
--- NOTE | 2024-03-31 09:58 | CT Scan Report ---
CT OF THE ABDOMEN AND PELVIS WITH CONTRAST CLINICAL HISTORY: pain, fever, loose stool COMPARISON STUDY: CT of the abdomen and pelvis March 29, 2023. Left hip ultrasound November 03, 2023. TECHNIQUE: Following IV administration of 94 mL of Optiray, axial images of the abdomen and pelvis we re obtained from the lung bases to the proximal femurs. Images were reviewed in the axial, sagittal, and coronal planes. IV contrast was administered without complication. Automated exposure control wa s utilized for the study. A dose lowering technique was utilized adhering to the principles of ALARA . CT DOSE: 1226.12 mGy.cm FINDINGS: Elevation of the left hemidiaphragm is noted. An irregular 1.7 cm right lower lobe airspace opacity on image 33 of 373 is noted. There are mild groundglass opacities within the lower lobes. No pneumatosis, free air or portal venous gas is present. Hepatosplenomegaly has increased since CT of March 29, 2023. The spleen is markedly enlarged. The liver is moderately enlarged. Several ill-defined hypodense foci within the liver have developed since prior CT. The largest is a 3.5 cm focus within t he right hepatic lobe on image 111. A 7.6 x 3.8 cm hypodense focus within the spleen represents a spl enic infarct. There is a smaller additional splenic infarct. There is no perisplenic fluid. There is mild stranding within the raf hepatis. No biliary ductal dilatation is identified status post butch cystectomy. Adrenal glands, kidneys and pancreas are normal. There is no evidence for a bowel obstruc tion. Sigmoid diverticulosis is present. No evidence for acute diverticulitis. Abdominal and pelvic l ymphadenopathy has developed since prior CT T. A raf hepatis lymph node on image 135 measures 2.1 x 2.3 cm. Left para-aortic lymph node on image 154 measures 1.8 x 1.5 cm. Left external iliac lymph no de on image 270 measures 1.9 x 1.3 cm. Additional left external iliac lymph node on image 310 measure s 2.9 x 1.2 cm. IMPRESSION: 1. Interval progression of hepatosplenomegaly since CT of March 29, 2023 and a new 7.6 x 3.8 cm splenic infarct. Development of abdominal and pelvic lymphadenopathy, as described above. Overall, these fin dings raise the possibility of a lymphoproliferative disorder. Oncology consultation is recommended. 2. Multiple new ill-defined hypodense foci within the liver. These are entirely nonspecific although could be seen in the setting of lymphoma. Liver protocol MRI may be of benefit in further characteriz ation. 3. No bowel obstruction. No bowel wall thickening. 4. 1.7 cm irregular right lower lobe airspace opacity and groundglass opacities within the lower lobe s. The findings favor an infectious process. However, a follow-up chest CT in one month to ensure res olution. ACT 112: Positive. There are findings on this exam that require communication between the performing entity and the patient following Patient Test Result Information Act ([place] Act 112) guidelines. Electronically signed by: Laith Gold M.D. 03/31/2024 9:56 AM
[2024-03-31 10:05] LABS: Lyme Screen Rflx Confirmation Negative (Negative)
--- NOTE | 2024-03-31 10:15 | History & Physical Report ---
Date of Service March 31, 2024 Assessment & Plan (1) Splenic infarct: (2) Lymphoproliferative disease: (3) Pneumonia: (4) Hepatic lesion: (5) Transaminitis: Plan Pt is a 54yoF with PMHx significant for ITP, antiphospholipid syndrome and Hx of DVT currently on Lovenox, Hx of subdural hematoma, Hx of cholecystectomy, diabetes mellitus, hypothyroidism, and GERD presenting with three weeks of generalized malaise and abdominal pain with N/V and nonbloody diarrhea. Splenic Infarct Hepatosplenomegaly, progressing Hepatic hypodense Lesions, new Transaminitis N/V/D/Abdominal Pain Pt presenting with abdominal pain for the last 3 weeks Noted transaminitis, pt with Hx of cholecystectomy Stool Cx negative CT abd/pelvis noting: - splenic infarct, progressing hepatosplenomegaly with lymphadenopathy concerning for lymphoproliferative disorder -new hypodense hepatic lesions concerning for process like lymphoma -no SBO/bowel thickening Pt follows with Clinical Study Manager/Oncologist Dr Ralph Barron, is on chronic Lovenox 50mg BID currently Case discussed with Dr. Barron via telephone on admission on 03/31. He advised: -continue further workup of liver lesions with MRI as recommended by Radiology -will likely need a biopsy but would feel more comfortable with that being done at a tertiary care center given pt's whole clinical picture -in setting of splenic infarct and pt's Hx of antiphospholipid syndrome and Hx of DVT, CONTINUE with anticoagulation even with platelets of 41K and noted anemia MRI liver protocol ordered and pending INR elevated at 2.5 Hold home lovenox, continue with low dose heparin drip once INR subtherapeutic below 2 per Hematology recs given pt's Hx Transaminitis likely in setting of hepatic lesions, pt had a cholecystectomy in 2021 IV fluids, antiemetics prn Consult in house [facility] Heme/Onc, appreciate recs Continue to monitor Pneumonia Sepsis, POA CT abdomen/pelvis noting 1.7 cm RLL airspace opacity and groundglass opacities within the lower lobes, favoring an infectious process. Tachycardic, tachypneic and hypotensive on admission with pulmonary infectious source Procalcitonin elevated at 10, lactate wnl Blood Cx x2 sets pending Pt denies aspiration and has Zosyn allergy Started on Cefepime and Flagyl Speech consult pending Consider CTA chest once TRISHA improved in AM (see below) TRISHA Cr elevated at 1.21 Baseline of 1.00 a month ago IV fluids Hold home nephrotoxic meds Continue to monitor Elevated troponin Demand ischemia Trop elevated on admission at 64.7 before downtrending to 57.9 EKG with noted sinus tachycardia Echo ordered and pending Likely in setting of above, doubt ACS Anemia, normocytic Hgb drop from 12 to 7.9 AM iron panel, ferritin, B12 and folate Blood transfusion consent signed INR of 2.5, hold home lovenox, continue with low dose heparin drip once INR subtherapeutic below 2 per Hematology recs given pt's Hx Thrombocytopenia Chronic ITP Hx Platelets currently 47K Completed course of prednisone taper recently Also on Rituxan Continue to monitor Hypocalcemia Ionized calcium of 1.02 Received 1 bag of calcium gluconate in the ED Continue with 1 other bag AM lab trend Hyponatremia Sodium of 127 on admission Likely in setting of dehydration, chronic N/V NSS as above Watch for overcorrection Consider further workup if persistent Back lesion Pt with raised firm lesion on her upper back concerning for a skin carcinoma Consider Dermatology eval Antiphospholipid Syndrome Hx of DVT Hx of SDH Follows with Heme/Onc Dr Ralph Barron Recently switched from coumadin to Lovenox Currently on Lovenox 50mg BID INR of 2.5, hold home lovenox, continue with low dose heparin drip once INR subtherapeutic below 2 per Hematology recs from Dr Barron on 03/31 given pt's Hx DMII AM [id number] Reportedly diet controlled Diet:DMII DVT prophylaxis: SCDs, INR of 2.5, hold home lovenox, continue with low dose heparin drip once INR subtherapeutic below 2 per Hematology recs from Dr Barron on 03/31 given pt's Hx Dispo: PCU/tele Pt would like her dad SLAVA frances, NOT Mary (her brother). History of Present Illness Chief Complaint: Abdominal Pain Primary Care Provider: Jewels Greenfield MD Pt is a 54yoF with PMHx significant for ITP, antiphospholipid syndrome and Hx of DVT currently on Lovenox, Hx of subdural hematoma, Hx of cholecystectomy, diabetes mellitus, hypothyroidism, and GERD presenting with three weeks of generalized malaise and abdominal pain with N/V and nonbloody diarrhea. She states that she was fine about a month ago, was able to eat. However about 3 weeks ago felt like her eating habits "slowed down". She noticed that she was more nauseous without an appetite. States she had a few episodes of emesis. States that when she eats it stays down for the most part, no dysphagia noted. Thought she was constipated when this started so took stool softeners with applesauce and apple juice and has been having diarrhea since then. States that she just feels sick. Was feeling bloated at one point. States she felt like things were just getting worse so she decided to come in to be evaluated. Has been having more abdominal pain recently. Mostly in the RUQ but it goes across to the LUQ. Has not noticed any episodes of bleeding. States no hematemesis, epistaxis or blood stools. Tearful at times during the discussion of her symptoms and the CT findings. States that she would like updates provided to her dad Slava Chicas but not to MARY Chicas her brother as they don't talk. Allergies Allergy/AdvReac Type Severity Reaction Status Date / Time codeine Allergy Intermediate Hives Verified 12/25/23 11:41 morphine Allergy Mild itching Verified 12/25/23 11:41 piperacillin [From Zosyn] Allergy Rash Verified 12/25/23 11:41 tazobactam [From Zosyn] Allergy Rash Verified 12/25/23 11:41 Home Medications Medication Instructions Recorded Confirmed Type Lactobacillus acidophilus 1 cap PO DAILY 08/30/22 03/31/24 History acetaminophen 500 mg tablet 500 - 1,000 mg PO Q6H PRN q6 08/30/22 03/31/24 History (Tylenol Extra Strength) levothyroxine 50 mcg tablet 50 mcg PO QAM 08/30/22 03/31/24 History loratadine 10 mg tablet 10 mg PO QAM PRN Allergy Symptoms 08/30/22 03/31/24 History pantoprazole 40 mg tablet,delayed 40 mg PO QAM 08/30/22 03/31/24 History release simvastatin 20 mg tablet 20 mg PO HS 08/30/22 03/31/24 History levetiracetam 500 mg tablet 500 mg PO BID 11/29/23 03/31/24 History (Keppra) polyethylene glycol 3350 17 gram 17 g PO DAILY PRN Constipation 12/25/23 03/31/24 History oral powder packet (Miralax) enoxaparin 60 mg/0.6 mL 50 mg subcut BID 03/31/24 03/31/24 History subcutaneous syringe Past Med/Surg History Problem List (Updated 03/31/24 @ 12:22 by Missy Gandara MD) Transaminitis Hepatic lesion Pneumonia Lymphoproliferative disease Splenic infarct Surgical wound, non healing (Acute) Cellulitis (Acute) Abdominal pain (Acute) Post op infection (Acute) Hematoma of abdominal wall Superficial incisional infection of surgical site Cholelithiasis and cholecystitis without obstruction Encounter for pre-operative examination Lab test negative for COVID-19 virus (Acute) Complicated migraine Dizzy spells Coagulopathy Elevated LFTs Metabolic syndrome Status post cholecystectomy GERD (gastroesophageal reflux disease) Hyperlipidemia DM type 2 (diabetes mellitus, type 2) denies Hypothyroidism APL (antiphospholipid syndrome) Chronic ITP (idiopathic thrombocytopenia) DX'D DR ILSA SHAH Medical History Superficial incisional infection of surgical site Hx of deep venous thrombosis hx- left leg On anticoagulant therapy Hx of migraines History of COVID-19 2020 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 Chronic obstructive pulmonary disease HX-no longer uses inhaler DM type 2 (diabetes mellitus, type 2) denies Hypothyroidism APL (antiphospholipid syndrome) Chronic ITP (idiopathic thrombocytopenia) DX'D DR ILSA SHAH Hyperlipidemia GERD (gastroesophageal reflux disease) Anxiety Surgical History Status post cholecystectomy History of myringotomy History of tonsillectomy and adenoidectomy History of tooth extraction History of colonoscopy History of bone marrow biopsy History of hysterectomy Family History Mother Diabetes Father Stroke Other No family history of adverse response to anesthesia Social History Smoking Status: Former smoker Tobacco Type: Cigarettes Cigarettes Per Day: 1 ppd- advised; Second Hand Exposure: No; Do You Dip or Chew Tobacco: No; Hx Alcohol Use: Yes Alcohol type: beer Hx Substance Use: No Preferred Language: Turkish Communication Ability: Effective Visual Impairment: Limited Hearing Ability: Normal Helmet Hat Puncher Required: No Beliefs That Will Affect Care: Spiritual Current Living Situation: Family Current Living Situation Comment: brother current occupation: DOES NOT WORK Feels Safe at Home: Yes Assistive Devices: Glasses and Walker Review of Systems Review of Systems: All systems reviewed & are unremarkable except as noted in Subjective Physical Exam Physical Exam: General: Alert, oriented, tearful at times Skin: bruising on skin noted, raised circular firm lesion on back Psych: Appropriate mood and affect Neuro: No gross deficits while sitting in bed HEENT: NC/AT CV: RRR Resp: Breath sounds clear bilaterally, no increased effort of breathing. Abdomen: Soft, tender diffusely but mostly in RUQ> LUQ Extremities: trace edema in lower extremities bilaterally. Results & Data Results & Data Vital Signs (Past 12 Hours) Vital Signs Temp Pulse Pulse Resp BP BP Pulse Ox 03/31/24 08:27 102 H 18 108/59 L 96 03/31/24 08:27 104 H 27 H 94 03/31/24 08:27 106 H 03/31/24 08:22 109 H 27 H 98/63 L 95 03/31/24 08:03 37.2 C 115 H 16 100/67 94 O2 Del Method 03/31/24 08:27 Room Air 03/31/24 08:27 Room Air 03/31/24 08:27 03/31/24 08:22 Room Air 03/31/24 08:03 Room Air Diagnostic Findings Chest X-Ray 03/31/24 08:23 XR chest 1V portable CLINICAL HISTORY: weakness COMPARISON STUDY: Chest radiograph December 14, 2023. Chest CT April 30, 2022. FINDINGS: Elevation of the left hemidiaphragm has increased. Linear left basilar opacity favors atelectasis. Chronic interstitial thickening is unchanged. Cardiomegaly is unchanged. There is no pneumothorax or pleural effusion. IMPRESSION: 1. No acute cardiopulmonary findings. 2. Increase in elevation of the left hemidiaphragm. ACT 112: Negative or not required by law. Electronically signed by: Laith Gold M.D. 03/31/2024 8:35 AM Abdomen/Pelvis CT 03/31/24 08:37 CT OF THE ABDOMEN AND PELVIS WITH CONTRAST CLINICAL HISTORY: pain, fever, loose stool COMPARISON STUDY: CT of the abdomen and pelvis March 29, 2023. Left hip ultrasound November 03, 2023. TECHNIQUE: Following IV administration of 94 mL of Optiray, axial images of the abdomen and pelvis were obtained from the lung bases to the proximal femurs. Images were reviewed in the axial, sagittal, and coronal planes. IV contrast was administered without complication. Automated exposure control was utilized for the study. A dose lowering technique was utilized adhering to the principles of ALARA. CT DOSE: 1226.12 mGy.cm FINDINGS: Elevation of the left hemidiaphragm is noted. An irregular 1.7 cm right lower lobe airspace opacity on image 33 of 373 is noted. There are mild groundglass opacities within the lower lobes. No pneumatosis, free air or portal venous gas is present. Hepatosplenomegaly has increased since CT of March 29, 2023. The spleen is markedly enlarged. The liver is moderately enlarged. Several ill-defined hypodense foci within the liver have developed since prior CT. The largest is a 3.5 cm focus within the right hepatic lobe on image 111. A 7.6 x 3.8 cm hypodense focus within the spleen represents a splenic infarct. There is a smaller additional splenic infarct. There is no perisplenic fluid. There is mild stranding within the raf hepatis. No biliary ductal dilatation is identified status post cholecystectomy. Adrenal glands, kidneys and pancreas are normal. There is no evidence for a bowel obstruction. Sigmoid diverticulosis is present. No evidence for acute diverticulitis. Abdominal and pelvic lymphadenopathy has developed since prior CT T. A raf hepatis lymph node on image 135 measures 2.1 x 2.3 cm. Left para-aortic lymph node on image 154 measures 1.8 x 1.5 cm. Left external iliac lymph node on image 270 measures 1.9 x 1.3 cm. Additional left external iliac lymph node on image 310 measures 2.9 x 1.2 cm. IMPRESSION: 1. Interval progression of hepatosplenomegaly since CT of March 29, 2023 and a new 7.6 x 3.8 cm splenic infarct. Development of abdominal and pelvic lymphadenopathy, as described above. Overall, these findings raise the possibility of a lymphoproliferative disorder. Oncology consultation is recommended. 2. Multiple new ill-defined hypodense foci within the liver. These are entirely nonspecific although could be seen in the setting of lymphoma. Liver protocol MRI may be of benefit in further characterization. 3. No bowel obstruction. No bowel wall thickening. 4. 1.7 cm irregular right lower lobe airspace opacity and groundglass opacities within the lower lobes. The findings favor an infectious process. However, a follow-up chest CT in one month to ensure resolution. ACT 112: Positive. There are findings on this exam that require communication between the performing entity and the patient following Patient Test Result Information Act ([place] Act 112) guidelines. Electronically signed by: Laith Gold M.D. 03/31/2024 9:56 AM Code Status & VTE Plan VTE Prophylaxis Plan VTE Prophylaxis will be ordered: Yes
[2024-03-31 10:16] LABS: Adenovirus F 40/41 PCR Not Detected (NotDetected); Astrovirus PCR Not Detected (NotDetected); Campylobacter PCR Not Detected (NotDetected); Cryptosporidium PCR Not Detected (NotDetected); Cyclospora cayetanensis PCR Not Detected (NotDetected); Entamoeba histolytica PCR Not Detected (NotDetected); Enteroaggregative E.coli(EAEC) Not Detected (NotDetected); Enteropathogenic E.coli (EPEC) Not Detected (NotDetected); Enterotoxigenic E.coli (ETEC) Not Detected (NotDetected); Giardia lamblia PCR Not Detected (NotDetected); Norovirus GI/GII PCR Not Detected (NotDetected); Plesiomonas shigelloides PCR Not Detected (NotDetected); Rotavirus A PCR Not Detected (NotDetected); Salmonella PCR Not Detected (NotDetected); Sapovirus PCR Not Detected (NotDetected); Shiga-like Toxin E.coli (STEC) Not Detected (NotDetected); Shigella/Enteroinvasive E.coli Not Detected (NotDetected); Vibrio cholerae PCR Not Detected (NotDetected); Vibrio species PCR Not Detected (NotDetected); Yersinia enterocolitica PCR Not Detected (NotDetected)
[2024-03-31 10:43] LABS: INR 2.5 (0.9-1.1)
[2024-03-31 10:43] LABS: Appearance Urine Clear (Clear); Bacteria Urine Automated None Seen (None Seen); Bilirubin Urine Negative (Negative); Blood Urine 2+ (Negative); Cast Urine Automated 0-2 /lpf (0-2); Color Urine Yellow; Epithelial Cell Urine Auto 0-2 /hpf (0-2); Glucose Urine UA Negative (Negative); Ketones Urine Negative (Negative); Leukocyte Esterase Urine Negative (Negative); Nitrite Urine Negative (Negative); Protein Urine 1+ (Negative); Specific Gravity Urine 1.019 (1.000-1.030); Urobilinogen Urine Negative (Negative); WBC Urine Automated 0-5 /hpf (0-5)
[2024-03-31] MEDS: CALCIUM GLUCONATE 1,000 MG/60 ML BAG IV STA ×2 (11:10→13:02)
--- NOTE | 2024-03-31 11:12 | Electrocardiogram Report ---
Test Reason : Blood Pressure : / mmHG Vent. Rate : 115 BPM Atrial Rate : 115 BPM P-R Int : 134 ms QRS Dur : 094 ms QT Int : 338 ms P-R-T Axes : 070 -16 041 degrees QTc Int : 467 ms Sinus tachycardia Low voltage QRS Cannot rule out Inferior infarct , age undetermined Poor R wave progression, consider anterior ND vs. lead placement vs. LVH Abnormal ECG When compared with ECG of 14-FEB-2024 10:17, Vent. rate has increased BY 43 BPM Left anterior fascicular block is no longer Present Minimal criteria for Inferior infarct are now Present Confirmed by Gamal Lawson ([id number]) on 03/31/2024 11:11:49 AM Referred By: REFERRED SELF Confirmed By:Lance Lawson
[2024-03-31] MEDS ORDERED: LORATADINE 10 MG TAB PO PRN (12:44)
[2024-03-31] MEDS: CEFEPIME 2,000 MG in SYRINGE 0 ML IV SCH (13:02)
[2024-03-31] MEDS: metroNIDAZOLE 500 MG/100 ML BAG IV SCH (15:12)
[2024-03-31] MEDS: levETIRAcetam 500 MG TAB PO SCH (20:00)
[2024-03-31] MEDS ORDERED: SIMVASTATIN 20 MG TAB PO SCH (21:00)
[2024-04-01] MEDS: LEVOTHYROXINE SODIUM 50 MCG TABLET PO SCH (05:44)
[2024-04-01 06:29] LABS: Albumin Globulin Ratio 0.6 (0.9-2); Albumin Level 2.4 gm/dl (3.4-5.0); BUN Creatinine Ratio 18.4 (10-20); Bilirubin,Total 0.8 mg/dl (0.2-1.0); Creatinine Clr Calc Pharmacy 67.6 ml/min; Est GFR (African American) 75.3 ml/min; Est GFR (Non-African American) 64.9 ml/min; Globulin 3.9 gm/dl (2.5-4.0); Magnesium 1.8 mg/dl (1.7-2.4); Phosphorus 3.2 mg/dl (2.5-4.9); Potassium 3.4 mmol/L (3.5-5.1); Total Protein 6.3 gm/dl (6.0-8.3)
[2024-04-01 06:39] LABS: INR 1.8 (0.9-1.1); Prothrombin Time 18.4 Seconds (9.0-12.0)
[2024-04-01 06:49] LABS: Basophils # (auto) 0.01 K/uL (0.00-0.20); Basophils % (auto) 0.2 %; Hematocrit (blood only) 21.1 % (37.0-47.0); Hemoglobin 6.8 g/dl (12.0-16.0); Immature Granulocytes # (auto) 0.24 K/uL (0.01-0.20); Immature Granulocytes % (auto) 5.2 %; Lymphocytes # (auto) 0.58 K/uL (1.20-3.40); Lymphocytes % (auto) 12.5 %; Mean Corpuscular Hemoglobin 30.4 pg (25.0-34.0); Mean Corpuscular Hgb Conc 32.2 g/dL (32.0-36.0); Mean Corpuscular Volume 94.2 fL (80.0-100.0); Mean Platelet Volume 11.5 fL (9.4-12.4); Monocytes # (auto) 0.39 K/uL (0.11-0.59); Monocytes % (auto) 8.4 %; Neutrophils # (auto) 3.43 K/uL (1.40-6.50); Neutrophils % (auto) 73.7 %; Platelet Count 37 K/uL (130-400); RBC Morphology Unremarkable; RDW Standard Deviation 51.3 fL (36.4-46.3); Red Blood Count 2.24 M/uL (4.20-5.40); White Blood Count 4.65 K/ul (4.8-10.8)
[2024-04-01 06:51] LABS: Folate (Folic Acid),Ser orPlas 12.72 ng/ml (>5.38)
[2024-04-01 06:57] LABS: Ferritin 922.7 ng/ml (8-388)
[2024-04-01] MEDS ORDERED: SODIUM CHLORIDE 0.9% 250 ML IV PRN (07:22)
[2024-04-01 07:33] LABS: Estimated Average Glucose 77 mg/dl; Hemoglobin A1C 4.3 % (4.5-5.6)
[2024-04-01] MEDS: POTASSIUM CHLORIDE CRTAB 20 MEQ TABCR PO STA (08:20)
[2024-04-01] MEDS: PANTOprazole 40 MG TAB PO SCH (08:21)
--- NOTE | 2024-04-01 10:59 | Hospitalist Progress Note ---
Date of Service April 01, 2024 Assessment & Plan (1) Splenic infarct: (2) Lymphoproliferative disease: (3) Pneumonia: (4) Hepatic lesion: (5) Transaminitis: Plan Ms. Chicas is a 54yoF with PMHx significant for ITP, antiphospholipid syndrome and Hx of DVT currently on Lovenox, Hx of subdural hematoma, Hx of cholecystectomy, diabetes mellitus, hypothyroidism, and GERD presenting with three weeks of generalized malaise and abdominal pain with N/V and nonbloody diarrhea. #Acute on chronic anemia, unclear etiology #Blood Antibody, unidentifiable #c/f Lymphoproliferative disorder Concern for possible Lymphoma 1. Interval progression of hepatosplenomegaly since CT of March 29, 2023 and a new 7.6 x 3.8 cm splenic infarct. Development of abdominal and pelvic lymphadenopathy, as described above. Overall, these findings raise the possibility of a lymphoproliferative disorder. Oncology consultation is recommended. 2. Multiple new ill-defined hypodense foci within the liver. These are entirely nonspecific although could be seen in the setting of lymphoma. Liver protocol MRI may be of benefit in further characterization. -Patient adamantly refused MRI , offered IV medications for anxiety; declined suggestion of sedation -Will consider MR +biopsy if done at same time--meaning platelet count will need to up trend to >50K prior to biopsy discussion -cbc 03/04 outpatient records: 36.9, plt 60k, wbc 5.9 Hgb on admission, 7.9 Anemia labs: B12 985, Folate 12.72, FE 70, TIBC 88, Ferritin 922.7, t bili 0.8 -Ordered Hapto, LDH, Retic count, Patricia -FOBT positive, denies bloody stool, BUN normal -IV PPI BID If elevated retic, will consult GI to assess need for scope c/f bleed Transfuse <7, trend H/H q 12 -Low frequency Antibodies +, spoke to Nomi Dominique of blood bank -Trip discussed with Dr Cruz with [facility]--high risk of delayed transfusion reaction--samples sen to Probity to start working on compatible units and evaluating antibody to determine if "low frequency antibody" is clinically significant [facility] for further guidance on recommendations for inpatient stay #chronic idiopathic thrombocytopenia #Hx of ITP Follows Dr. Ralph Barron Trialed on Rituxan, c/b allergic reaction Completed prolonged steroid taper #Antiphospholipid antibody syndrome #chronic anticoagulation #Recent Subdural Hematoma 11/2023 INR 2.5 on admission, transitioned to Heparin drip given history of subdural, but need for AC given propensity for thrombosis On lovenox 50mg BID Anemia work up as above Continue heparin drip #Splenic Infarct #Hepatosplenomegaly, progressing #Hepatic hypodense Lesions, new #Transaminitis #N/V/D/Abdominal Pain Pt presenting with abdominal pain for the last 3 weeks Noted transaminitis, pt with Hx of cholecystectomy Stool Cx negative CT abd/pelvis as above 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 Barron via telephone on admission on 03/31. He advised: -continue further workup of liver lesions with MRI as recommended by Radiology -will likely need a biopsy but would feel more comfortable with that being done at a tertiary care center given pt's whole clinical picture -in setting of splenic infarct and pt's Hx of antiphospholipid syndrome and Hx of DVT, CONTINUE with anticoagulation even with platelets of 41K and noted anemia MRI liver protocol ordered-declined by patient, offered multiple modalities to help with anxiety of MRI, adamantly declined Transaminitis likely in setting of hepatic lesions, pt had a cholecystectomy in 2021 IV fluids, antiemetics prn Consult in house [facility]/Onc for further guidance Continue to monitor #c/f Pneumonia, questionable aspiration #Sepsis, POA CT abdomen/pelvis noting 1.7 cm RLL airspace opacity and groundglass opacities within the lower lobes, favoring an infectious process. Tachycardic, tachypneic and hypotensive on admission with pulmonary infectious source Procalcitonin elevated at 10, lactate wnl Blood Cx x2 sets pending Pt denies aspiration and has Zosyn allergy Started on Cefepime and Flagyl, added azithromycin for atypical coverage Speech consult pending Will consider further chest imaging if patient will consider #TRISHA resolved Cr elevated at 1.21 Baseline of 1.00 a month ago IV fluids Hold home nephrotoxic meds Continue to monitor #Elevated troponin #Demand ischemia Trop elevated on admission at 64.7 before downtrending to 57.9 EKG with noted sinus tachycardia Echo ordered and pending Likely in setting of above, doubt ACS--no signs of ischemic process #Hypocalcemia *improved Ionized calcium of 1.02 Received 1 bag of calcium gluconate in the ED Continue with 1 other bag AM lab trend #Hypovolemic Hyponatremia Sodium of 127 on admission Likely in setting of dehydration, chronic N/V NSS as above Watch for overcorrection Improving with fluids, repeat bmp this afternoon #Back lesion Pt with raised firm lesion on her upper back concerning for a skin carcinoma Will discuss OP follow up when above matters stable #DMII A1c 4.3 Reportedly diet controlled #Severe protein calorie malnutrition 64 lb weight loss Diet:DMII DVT prophylaxis: SCDs, hold home lovenox, continue with low dose heparin drip Dispo: PCU/tele Spent 20 minutes speaking with father Nba and Step mother regarding goals of care, complicated history, limitation of thrombocytopenia, etc. Plan to stay full code. Palliative consult. Admission and Anticipated Discharge Date Admission Date: March 31, 2024 Subjective Patient reports loss of appetite, apprehensive about blood transfusion. Reports feeling very overwhelmed and anxious regarding so many issues asked if she "was going to "--discussed the importance of further imaging and taking it "day by day" to better assess what is going on She denies chest pain or other acute concerns at this time Physical Exam Constitutional: WD/WN, vitals as above ENMT: purpuric lesion on tongue Respiratory: normal respiratory effort, lungs clear to auscultation Cardiovascular: RRR, no murmur, no edema Results & Data Results & Data Vital Signs (Past 12 Hours) Vital Signs Temp Pulse Pulse Resp BP Pulse Ox O2 Del Method 04/01/24 10:49 36.5 C 79 18 99/65 L 96 Room Air 04/01/24 10:00 80 04/01/24 07:43 36.6 C 81 17 102/65 96 Room Air 04/01/24 03:37 36.8 C 78 18 96/62 L 97 Room Air 03/31/24 23:33 36.9 C 85 18 99/63 L 95 Room Air Laboratory Results Short CBC 04/01/24 Range/Units 05:38 WBC 4.65 L (4.8-10.8) K/ul Hgb 6.8 L* (12.0-16.0) g/dl Hct 21.1 L (37.0-47.0) % Plt Count 37 L (130-400) K/uL BMP 04/01/24 05:38 Sodium 133 L Potassium 3.4 L Chloride 105 Carbon Dioxide 21 BUN 18 Creatinine 0.98 Glucose 109 H Calcium 8.0 L Liver Function 04/01/24 Range/Units 05:38 Total Bilirubin 0.8 D (0.2-1.0) mg/dl AST 124 H (13-39) U/L ALT 92 H (7-52) U/L Alkaline Phosphatase 149 H (34-104) U/L Albumin 2.4 L (3.4-5.0) gm/dl Medications Administered Home Medications Medication Instructions Recorded Confirmed Last Taken Lactobacillus acidophilus 1 cap PO DAILY 08/30/22 03/31/24 03/30/24 acetaminophen 500 mg tablet 500 - 1,000 mg PO Q6H PRN q6 08/30/22 03/31/24 03/30/24 (Tylenol Extra Strength) levothyroxine 50 mcg tablet 50 mcg PO QAM 08/30/22 03/31/24 03/30/24 loratadine 10 mg tablet 10 mg PO QAM PRN Allergy Symptoms 08/30/22 03/31/24 03/30/24 pantoprazole 40 mg tablet,delayed 40 mg PO QAM 08/30/22 03/31/24 03/30/24 release simvastatin 20 mg tablet 20 mg PO HS 08/30/22 03/31/24 03/30/24 levetiracetam 500 mg tablet 500 mg PO BID 11/29/23 03/31/24 03/30/24 (Keppra) polyethylene glycol 3350 17 gram 17 g PO DAILY PRN Constipation 12/25/23 03/31/24 03/30/24 oral powder packet (Miralax) enoxaparin 60 mg/0.6 mL 50 mg subcut BID 03/31/24 03/31/24 03/30/24 subcutaneous syringe sennosides 8.6 mg-docusate sodium 8.6 - 50 tab PO DAILY PRN 03/31/24 03/31/24 Unknown 50 mg tablet (Senexon-S) Constipation Active Medications Generic Name Dose Route Start Last Admin Trade Name Freq PRN Reason Stop Dose Admin Metronidazole 500 mg in 100 mls @ 100 mls/hr 03/31/24 13:00 04/01/24 06:45 Flagyl IV 04/07/24 12:59 Infused Q8H MATTHIAS Infusion Protocol Sodium Chloride 1,000 mls @ 80 mls/hr 03/31/24 12:13 04/01/24 12:23 Nss IV 04/30/24 12:12 80 mls/hr .[id number] MATTHIAS Administration Cefepime HCl 2,000 mg/ Syringe 20 mls @ 5 mls/min 04/01/24 11:45 04/01/24 12:21 IV 04/08/24 11:44 5 mls/min Q8H MATTHIAS Administration Protocol Azithromycin 500 mg/ Dextrose 255 mls @ 125 mls/hr 04/01/24 11:45 04/01/24 12:21 IV 04/08/24 11:44 125 mls/hr Q24H MATTHIAS Administration Levetiracetam 500 mg 03/31/24 21:00 04/01/24 08:20 Levetiracetam 500 Mg Tab PO 04/30/24 20:59 500 mg BID MATTHIAS Administration Levothyroxine Sodium 50 mcg 04/01/24 06:30 04/01/24 05:44 Levothyroxine Sodium 50 Mcg Tablet PO 05/01/24 06:29 50 mcg DAILYBB MATTHIAS Administration
[2024-04-01 12:20] LABS: Immature Retic Fraction 27.6 % (2.3-15.9); Reticulated Hemoglobin 26.7 pg (28.2-36.6); Reticulocyte % 3.76 % (0.50-2.00)
[2024-04-01] MEDS: CEFEPIME 2,000 MG in SYRINGE 0 ML IV SCH (12:21)
[2024-04-01] MEDS: AZITHROMYCIN 500 MG in DEXTROSE 5% 250 ML IV SCH (12:21)
--- NOTE | 2024-04-01 14:15 | Communication Note ---
Date of Service: April 01, 2024 Consult received, appreciated and chart reviewed Discussed with primary team who request evaluating tomorrow 04/02/24, as a GOC/ACO and code discussion was just held with family today and they are overwhelmed. Thank you for allowing us to participate in the ongoing care of this patient. Please don't hesitate to call or page with any additional concerns. Dr. Cat Soler DNP Director, Palliative Care
--- NOTE | 2024-04-01 16:03 | Hematology/Oncology Prog Note ---
Date of Service April 01, 2024 Assessment & Plan Admission and Anticipated Discharge Date Admission Date: March 31, 2024 Results & Data Vital Signs (Past 12 Hours) Vital Signs Temp Pulse Pulse Resp BP Pulse Ox O2 Del Method 04/01/24 10:49 36.5 C 79 18 99/65 L 96 Room Air 04/01/24 10:00 80 04/01/24 07:43 36.6 C 81 17 102/65 96 Room Air
--- NOTE | 2024-04-01 16:04 | Oncology Consultation ---
Date of Consultation April 01, 2024 Assessment & Plan (1) Lymphoproliferative disease: I agree with Dr. Barron's plan that the patient needs a biopsy of one of the lymph nodes to establish the cause for the lymphoproliferative disease. The biopsy can be obtained here, if it is technically challenging then it can be obtained at [place] or [facility]. (2) Thrombocytopenia: Patient has chronic ITP, has been on steroids. Platelet count is less than 50,000. Transfuse if platelet count is less than 10,000 or the patient is actively bleeding (3) Splenic infarct: will hold anticoagulation as long as platelet count is less than 50,000 given the risk of bleeding. If the patient is symptomatic from the splenic infarct then consider low-dose heparin and titrated to lower level of anti xa at any level Plan thank you for this interesting oncological consult. A total of 60 minutes were spent in counseling, coordination of care review of prior records. oncology will continue to follow the patient and make appropriate recommendations History of Present Illness Reason for Consultation: ITP generalized abdominal lymphadenopathy hepatosplenomegaly splenic infarct Attending Physician: Nunu Rodriges MD History of Present Illness the patient is a very pleasant 54-year-old woman who follows with my colleagues up in [facility], past history of DVT, subdural hematoma, cholecystectomy, diabetes, hypothyroidism, GERD who presented to the hospital with generalized malaise, abdominal pain, nausea vomiting and nonbloody diarrhea. She had a CT of the abdomen pelvis performed during her admission which revealed hepat osplenomegaly, intra-abdominal lymphadenopathy. She follows with Dr. Barron from [facility] who is recommended a biopsy of one of the lymph node present in the belly. During my interview the patient was lying alone in bed, not in discomfort. She reported no pain. No bleeding no hematemesis. Allergies Allergy/AdvReac Type Severity Reaction Status Date / Time codeine Allergy Intermediate Hives Verified 12/25/23 11:41 morphine Allergy Mild itching Verified 12/25/23 11:41 piperacillin [From Zosyn] Allergy Rash Verified 12/25/23 11:41 tazobactam [From Zosyn] Allergy Rash Verified 12/25/23 11:41 Home Medications Medication Instructions Recorded Confirmed Type Lactobacillus acidophilus 1 cap PO DAILY 08/30/22 03/31/24 History acetaminophen 500 mg tablet 500 - 1,000 mg PO Q6H PRN q6 10/26/22 05/27/24 History (Tylenol Extra Strength) levothyroxine 50 mcg tablet 50 mcg PO QAM 08/30/22 03/31/24 History loratadine 10 mg tablet 10 mg PO QAM PRN Allergy Symptoms 08/30/22 03/31/24 History pantoprazole 40 mg tablet,delayed 40 mg PO QAM 08/30/22 03/31/24 History release simvastatin 20 mg tablet 20 mg PO HS 08/30/22 03/31/24 History levetiracetam 500 mg tablet 500 mg PO BID 11/29/23 03/31/24 History (Keppra) polyethylene glycol 3350 17 gram 17 g PO DAILY PRN Constipation 12/25/23 03/31/24 History oral powder packet (Miralax) enoxaparin 60 mg/0.6 mL 50 mg subcut BID 03/31/24 03/31/24 History subcutaneous syringe sennosides 8.6 mg-docusate sodium 8.6 - 50 tab PO DAILY PRN 03/31/24 03/31/24 History 50 mg tablet (Senexon-S) Constipation Patient History Medical History Hx of deep venous thrombosis hx- left leg On anticoagulant therapy Hx of migraines History of COVID-19 2020 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 Chronic obstructive pulmonary disease HX-no longer uses inhaler Anxiety Surgical History Status post cholecystectomy History of myringotomy History of tonsillectomy and adenoidectomy History of tooth extraction History of colonoscopy History of bone marrow biopsy History of hysterectomy Family History Mother Diabetes Father Stroke Other No family history of adverse response to anesthesia Social History Smoking Status: Former smoker Tobacco Type: Cigarettes Cigarettes Per Day: 1 ppd- advised; Smoking End Date: 2018; Second Hand Exposure: No; Do You Dip or Chew Tobacco: No; Tobacco Cessation Education Requested by Patient: No Hx Alcohol Use: Yes Alcohol type: beer Hx Substance Use: No Preferred Language: Wallisian Communication Ability: Effective Visual Impairment: Limited Hearing Ability: Normal 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 Beliefs That Will Affect Care: None Current Living Situation: Alone current occupation: DOES NOT WORK Other Information That Helps Us Care for You: No Feels Safe at Home: Yes Assistive Devices: Denture - Upper, Denture - Lower and Walker Review of Systems Review of Systems: Generalized fatigue, weakness Constitutional: as per Subjective / HPI Eyes: as per Subjective / HPI Ear, Nose, Mouth, Throat: as per Subjective / HPI Respiratory: as per Subjective / HPI Cardiovascular: as per Subjective / HPI Gastrointestinal: as per Subjective / HPI Genitourinary: as per Subjective / HPI Musculoskeletal: as per Subjective / HPI Integumentary: as per Subjective / HPI Physical Exam Constitutional: WD/WN, vitals as above Eyes: PERRL, conjunctivae normal, anicteric sclerae ENMT: external ear and nose normal, oropharynx normal Neck: trachea midline, no thyromegaly Respiratory: normal respiratory effort, lungs clear to auscultation Cardiovascular: RRR, no murmur, no edema Gastrointestinal (Abdomen): normal bowel sounds, soft, nontender, no hepatos plenomegaly Musculoskeletal: no cyanosis or clubbing, extremities motor strength 5/5 Skin: no rashes, warm and dry Results & Data Vital Signs (Past 12 Hours) Vital Signs Temp Pulse Pulse Resp BP Pulse Ox O2 Del Method 04/01/24 10:49 36.5 C 79 18 99/65 L 96 Room Air 04/01/24 10:00 80 04/01/24 07:43 36.6 C 81 17 102/65 96 Room Air
[2024-04-01 16:52] LABS: Hemoglobin 7.1 g/dl (12.0-16.0); Mean Corpuscular Hemoglobin 30.7 pg (25.0-34.0); Mean Corpuscular Hgb Conc 32.3 g/dL (32.0-36.0); Mean Corpuscular Volume 95.2 fL (80.0-100.0); Mean Platelet Volume 12.3 fL (9.4-12.4); Platelet Count 48 K/uL (130-400); RDW Coefficient of Variation 15.3 % (11.5-14.5); RDW Standard Deviation 53.3 fL (36.4-46.3); Red Blood Count 2.31 M/uL (4.20-5.40); White Blood Count 5.75 K/ul (4.8-10.8)
[2024-04-01 17:07] LABS: Calcium 7.8 mg/dl (8.6-10.3); Creatinine Clr Calc Pharmacy 70.5 ml/min; Est GFR (African American) 79.2 ml/min; Est GFR (Non-African American) 68.3 ml/min; Potassium 3.3 mmol/L (3.5-5.1)
[2024-04-01] MEDS ORDERED: Heparin IV Adult Wt-Based Low-Dose *NO* INITIAL Bolus Protocol IV SCH (20:00)
[2024-04-01] MEDS: PANTOprazole 40 MG in SYRINGE 0 ML IV SCH (20:02)
[2024-04-01 21:58] LABS: Hematocrit (blood only) 21.4 % (37.0-47.0); Hemoglobin 6.9 g/dl (12.0-16.0); Mean Corpuscular Hemoglobin 30.4 pg (25.0-34.0); Mean Corpuscular Hgb Conc 32.2 g/dL (32.0-36.0); Mean Corpuscular Volume 94.3 fL (80.0-100.0); Mean Platelet Volume 12.3 fL (9.4-12.4); Platelet Count 45 K/uL (130-400); RDW Coefficient of Variation 15.2 % (11.5-14.5); RDW Standard Deviation 51.8 fL (36.4-46.3); Red Blood Count 2.27 M/uL (4.20-5.40); White Blood Count 4.44 K/ul (4.8-10.8)
[2024-04-01 22:25] LABS: INR 1.8 (0.9-1.1); Partial Thromboplastin Ratio 3.1; Prothrombin Time 18.2 Seconds (9.0-12.0)
[2024-04-01 22:33] LABS: Acanthocytes 1+; Basophils # (auto) 0.01 K/uL (0.00-0.20); Basophils % (auto) 0.2 %; Immature Granulocytes # (auto) 0.21 K/uL (0.01-0.20); Immature Granulocytes % (auto) 4.7 %; Lymphocytes % (auto) 15.8 %; Monocytes # (auto) 0.36 K/uL (0.11-0.59); Monocytes % (auto) 8.1 %; Neutrophils # (auto) 3.16 K/uL (1.40-6.50); Neutrophils % (auto) 71.2 %; Spherocytes 2+
[2024-04-01] MEDS: HEPARIN SODIUM/DEXTROSE 25,000 UNITS/500 ML BAG IV SCH (22:39)
[2024-04-01] MEDS: diphenhydrAMINE Capsule 25 MG CAP ONE (23:26)
[2024-04-01] MEDS: ACETAMINOPHEN 325 MG TAB ONE (23:26)
[2024-04-02 00:08] LABS: Partial Thromboplastin Time 83 Seconds (21-31)
[2024-04-02] MEDS: diphenhydrAMINE Capsule 25 MG CAP PO ONE (00:17)
[2024-04-02] MEDS: ACETAMINOPHEN 325 MG TAB PO STA (00:17)
[2024-04-02 07:12] LABS: Hematocrit (blood only) 25.9 % (37.0-47.0); Hemoglobin 8.5 g/dl (12.0-16.0); Mean Corpuscular Hemoglobin 30.1 pg (25.0-34.0); Mean Corpuscular Hgb Conc 32.8 g/dL (32.0-36.0); Mean Corpuscular Volume 91.8 fL (80.0-100.0); Mean Platelet Volume 11.6 fL (9.4-12.4); Platelet Count 50 K/uL (130-400); RDW Coefficient of Variation 16.7 % (11.5-14.5); RDW Standard Deviation 55.8 fL (36.4-46.3); Red Blood Count 2.82 M/uL (4.20-5.40)
[2024-04-02] MEDS: ONDANSETRON INJ 2 MG/ML 2 ML VIAL IV PRN (07:24)
[2024-04-02 07:38] LABS: Albumin Globulin Ratio 0.6 (0.9-2); Albumin Level 2.4 gm/dl (3.4-5.0); BUN Creatinine Ratio 12.8 (10-20); Bilirubin,Total 0.8 mg/dl (0.2-1.0); Calcium 7.9 mg/dl (8.6-10.3); Creatinine Clr Calc Pharmacy 70.5 ml/min; Est GFR (African American) 79.2 ml/min; Est GFR (Non-African American) 68.3 ml/min; Magnesium 1.7 mg/dl (1.7-2.4); Phosphorus 3.3 mg/dl (2.5-4.9); Potassium 3.7 mmol/L (3.5-5.1); Total Protein 6.4 gm/dl (6.0-8.3)
[2024-04-02 07:42] LABS: INR 1.9 (0.9-1.1); Prothrombin Time 19.3 Seconds (9.0-12.0)
[2024-04-02 14:48] LABS: Hematocrit (blood only) 27.8 % (37.0-47.0); Hemoglobin 9.3 g/dl (12.0-16.0); Mean Corpuscular Hemoglobin 30.4 pg (25.0-34.0); Mean Corpuscular Hgb Conc 33.5 g/dL (32.0-36.0); Mean Corpuscular Volume 90.8 fL (80.0-100.0); Mean Platelet Volume 11.4 fL (9.4-12.4); Platelet Count 46 K/uL (130-400); RDW Coefficient of Variation 17.1 % (11.5-14.5); RDW Standard Deviation 56.8 fL (36.4-46.3); Red Blood Count 3.06 M/uL (4.20-5.40); White Blood Count 5.08 K/ul (4.8-10.8)
[2024-04-02] MEDS: PSYLLIUM or GUAR GUM FIBER 4GM PACKET PO SCH (15:43)
--- NOTE | 2024-04-02 18:59 | Hospitalist Progress Note ---
Date of Service April 02, 2024 Assessment & Plan (1) Splenic infarct: (2) Lymphoproliferative disease: (3) Pneumonia: (4) Hepatic lesion: (5) Transaminitis: Plan 54yoF with PMHx significant for ITP, antiphospholipid syndrome and Hx of DVT currently on Lovenox, Hx of subdural hematoma, Hx of cholecystectomy, diabetes mellitus, hypothyroidism, and GERD presenting with three weeks of generalized malaise and abdominal pain with N/V and nonbloody diarrhea. She is being managed for the following: #Acute on chronic anemia, unclear etiology #Blood Antibody, unidentifiable #c/f Lymphoproliferative disorder Concern for possible Lymphoma per admitting CTAP: 1. Interval progression of hepatosplenomegaly since CT of March 29, 2023 and a new 7.6 x 3.8 cm splenic infarct. Development of abdominal and pelvic lymphadenopathy, as described above. Overall, these findings raise the possibility of a lymphoproliferative disorder. Oncology consultation is recommended. 2. Multiple new ill-defined hypodense foci within the liver. These are entirely nonspecific although could be seen in the setting of lymphoma. Liver protocol MRI may be of benefit in further characterization. Patient adamantly refused MRI , offered IV medications for anxiety; declined suggestion of sedation Palliative evaled, pt wants snf (then LTC) with plan to transition to hospice and comfort care depending on progress, doesn't want biopsy or further cancer w/u, she doesn't want to prolong dying. cbc 03/04 outpatient records: 12/36.9, plt 60k, wbc 5. Hgb on admission, 7.9 Anemia labs: B12 985, Folate 12.72, FE 70, TIBC 88, Ferritin 922.7, t bili 0.8 FOBT positive, denies bloody stool, BUN normal ----IV PPI BID If further drop in Hb, will consult GI to assess need for scope c/f bleed Transfuse <7, trend H/H daily or as needed. -Low frequency Antibodies +, per Nomi Dominique of blood bank - [facility] didn't find a low freq IgG Ab on any of their cell lines so they don't think it was clinically significant. Hematology evaluating. #chronic idiopathic thrombocytopenia #Hx of ITP Follows Dr. Ralph Barron Trialed on Rituxan, c/b allergic reaction Completed prolonged steroid taper #Antiphospholipid antibody syndrome #chronic anticoagulation #Recent Subdural Hematoma 11/2023 INR 2.5 on admission, transitioned to Heparin drip given history of subdural, but need for AC given propensity for thrombosis On lovenox 50mg BID at home Anemia work up as above Anticoagulation on hold - see below. 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 Case discussed with Dr. Barron via telephone on admission on 03/31. He advised: Pt declines further work up. see above. Transaminitis likely in setting of hepatic lesions, pt had a cholecystectomy in 2021 IV fluids, antiemetics prn Continue to monitor #c/f Pneumonia, questionable aspiration #Sepsis, POA CT abdomen/pelvis noting 1.7 cm RLL airspace opacity and groundglass opacities within the lower lobes, favoring an infectious process. Tachycardic, tachypneic and hypotensive on admission with pulmonary infectious source Procalcitonin elevated at 10, lactate wnl Blood Cx x2 sets pending Pt denies aspiration and has Zosyn allergy Started on Cefepime and Flagyl, added azithromycin for atypical coverage Speech consult #TRISHA resolved Cr elevated at 1.21 Baseline of 1.00 a month ago IV fluids Hold home nephrotoxic meds Continue to monitor #Elevated troponin #Demand ischemia Trop elevated on admission at 64.7 before downtrending to 57.9 EKG with noted sinus tachycardia Echo ordered and pending Likely in setting of above, doubt ACS--no signs of ischemic process #Hypocalcemia *improved Ionized calcium of 1.02 Received 1 bag of calcium gluconate in the ED Continue with 1 other bag AM lab trend #Hypovolemic Hyponatremia Sodium of 127 on admission Likely in setting of dehydration, chronic N/V NSS as above Watch for overcorrection Improving with fluids, repeat bmp this afternoon #Back lesion Pt with raised firm lesion on her upper back concerning for a skin carcinoma Will discuss OP follow up when above matters stable #DMII A1c 4.3 Reportedly diet controlled #Severe protein calorie malnutrition 64 lb weight loss Diet:DMII DVT prophylaxis: SCDs, hold home lovenox, continue with low dose heparin drip Dispo: PCU/tele code; dnr/dni Admission and Anticipated Discharge Date Admission Date: March 31, 2024 Subjective Patient was lying in bed, on room air, NAD. Patient reports improving nausea or vomiting, still with multiple loose stools, has poor appetite. Patient denies headache or dizziness Or chest pain. Physical Exam Physical Exam: General: Alert, oriented, appears ill/sick/frail. Skin: bruising on skin noted, raised circular firm lesion on back Psych: Appropriate mood and affect Neuro: No gross deficits while sitting in bed HEENT: NC/AT CV: RRR Resp: Breath sounds clear bilaterally, no increased effort of breathing. Abdomen: Soft, tender epigastrium Extremities: trace edema in lower extremities bilaterally. Results & Data Results & Data Vital Signs (Past 12 Hours) Vital Signs Temp Pulse Pulse Resp BP Pulse Ox O2 Del Method 04/02/24 16:13 36.6 C 73 19 107/74 99 Room Air 04/02/24 15:35 74 04/02/24 11:22 36.8 C 75 17 117/76 98 Room Air 04/02/24 07:45 36.4 C L 77 18 115/74 97 Room Air
[2024-04-02] MEDS: CHOLESTYRAMINE LIGHT 4 GM PKT PO SCH (21:13)
[2024-04-03] MEDS ORDERED: oxyCODONE HCL IR 5 MG TAB (IMMEDIATE RELEASE) PO PRN (06:23)
[2024-04-03] MEDS: ACETAMINOPHEN 500 MG TAB PO PRN (06:37)
[2024-04-03 06:53] LABS: Hematocrit (blood only) 27.2 % (37.0-47.0); Hemoglobin 8.9 g/dl (12.0-16.0); Mean Corpuscular Hemoglobin 29.7 pg (25.0-34.0); Mean Corpuscular Hgb Conc 32.7 g/dL (32.0-36.0); Mean Corpuscular Volume 90.7 fL (80.0-100.0); Mean Platelet Volume 12.5 fL (9.4-12.4); Platelet Count 36 K/uL (130-400); RDW Coefficient of Variation 16.7 % (11.5-14.5); RDW Standard Deviation 54.7 fL (36.4-46.3); White Blood Count 6.14 K/ul (4.8-10.8)
[2024-04-03 07:15] LABS: Albumin Level 2.3 gm/dl (3.4-5.0); BUN Creatinine Ratio 8.7 (10-20); Bilirubin Direct 0.4 mg/dl (0-0.2); Bilirubin,Total 0.9 mg/dl (0.2-1.0); Calcium 7.6 mg/dl (8.6-10.3); Creatinine Clr Calc Pharmacy 63.7 ml/min; Est GFR (Non-African American) 60.4 ml/min; Magnesium 1.4 mg/dl (1.7-2.4); Phosphorus 3.6 mg/dl (2.5-4.9); Potassium 3.5 mmol/L (3.5-5.1); Total Protein 6.2 gm/dl (6.0-8.3)
[2024-04-03 07:21] LABS: INR 1.9 (0.9-1.1); Prothrombin Time 19.9 Seconds (9.0-12.0)
[2024-04-03] MEDS: POTASSIUM CHLORIDE CRTAB 20 MEQ TABCR PO STA (07:56)
[2024-04-03] MEDS: MAGNESIUM SULFATE / D5W 1 GM/100 ML BAG IV SCH (07:56)
[2024-04-03] MEDS: metroNIDAZOLE 500 MG TAB PO SCH (12:53)
[2024-04-03] MEDS: AZITHROMYCIN 250 MG TAB PO SCH (12:53)
--- NOTE | 2024-04-03 13:38 | Palliative Care Consultation ---
Date of Consultation April 03, 2024 Assessment & Plan (1) Weakness generalized: (2) Advanced care planning/counseling discussion: A 60min face to face ACP meeting was held with pt, her mother and stepfather. She has some cognitive impairment but reasonable insight into her illness and she wanted to be part of all discussions, makes her own decisions and does not want someone else deciding for her. Her parents had many concerns park for her safety to return home, alone and with no support. They live in [place]. They have family in [place] so they would like placement in that region so pt would have visitors and when parents come to visit, they have family they can stay with (mother's sister.) Pt and family discussed her complex medical issues and the risks of further work up/intervention. When asked what matters most to her she states she does not want to do anything that will make her feel worse than she feels right now. She does not want therapies that come with side effects and does not want to feel like she is "dragging things out" park after watching her signif other struggle with prolonged dying from cancer and related illness. She states she does not want to be put on machines, and when the time comes and she dies, to let her go in peace. Family in agreement. Family would like placement in [place]. Discussed that might have to be accomplished as a trial or rehab then moving to LTC, provided that she qualifies for rehab. Father states she has medicare and medicaid so all her needs should be covered. I advised this is something they would need to review and discuss with care mgt as the costs of SNF may vary facility to facility. (3) Palliative care by specialist: Plan As above. Thank you for allowing us to participate in the ongoing care of this patient. Please don't hesitate to call or page with any additional concerns. Dr. Cat Soler DNP Director, Palliative Care History of Present Illness Reason for Consultation: [facility] Attending Physician: Luiza Alcantar MD History of Present Illness Magaly is a 54yo female who presented to [facility] with generalized malaise, abdominal pain, nausea vomiting and nonbloody diarrhea. She had a CT of the abdomen pelvis performed revealed hepatosplenomegaly, intra-abdominal lymphadenopathy. Suspected lymphoproliferative disease PMH: ITP, antiphospholipid syndrome and Hx of DVT currently on Lovenox, Subdural Hematoma 11/2023subdural hematoma, Hx of cholecystectomy, diabetes mellitus, hypothyroidism, and GERD Magaly is seen bedside with mom and stepdad, who are visiting from [place] SHe lives alone in apartment her signif other of 35+ years a few months ago, he was a former patient of mine during his [facility] admission. Magaly is informed about palliative medicine and intersection with advanced illness mgt Magaly has a hx of cognitive impairment but has been able to make her own decisi ons. Allergies Allergy/AdvReac Type Severity Reaction Status Date / Time codeine Allergy Intermediate Hives Verified 12/25/23 11:41 morphine Allergy Mild itching Verified 12/25/23 11:41 piperacillin [From Zosyn] Allergy Rash Verified 12/25/23 11:41 tazobactam [From Zosyn] Allergy Rash Verified 12/25/23 11:41 Home Medications Medication Instructions Recorded Confirmed Type Lactobacillus acidophilus 1 cap PO DAILY 08/30/22 03/31/24 History acetaminophen 500 mg tablet 500 - 1,000 mg PO Q6H PRN q6 08/30/22 03/31/24 History (Tylenol Extra Strength) levothyroxine 50 mcg tablet 50 mcg PO QAM 08/30/22 03/31/24 History loratadine 10 mg tablet 10 mg PO QAM PRN Allergy Symptoms 08/30/22 03/31/24 History pantoprazole 40 mg tablet,delayed 40 mg PO QAM 08/30/22 03/31/24 History release simvastatin 20 mg tablet 20 mg PO HS 08/30/22 03/31/24 History levetiracetam 500 mg tablet 500 mg PO BID 11/29/23 03/31/24 History (Keppra) polyethylene glycol 3350 17 gram 17 g PO DAILY PRN Constipation 12/25/23 03/31/24 History oral powder packet (Miralax) enoxaparin 60 mg/0.6 mL 50 mg subcut BID 03/31/24 03/31/24 History subcutaneous syringe sennosides 8.6 mg-docusate sodium 8.6 - 50 tab PO DAILY PRN 03/31/24 03/31/24 History 50 mg tablet (Senexon-S) Constipation Patient History Medical History Hx of deep venous thrombosis hx- left leg On anticoagulant therapy Hx of migraines History of COVID-19 2020 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 Chronic obstructive pulmonary disease HX-no longer uses inhaler Anxiety Surgical History Status post cholecystectomy History of myringotomy History of tonsillectomy and adenoidectomy History of tooth extraction History of colonoscopy History of bone marrow biopsy History of hysterectomy Family History Mother Diabetes Father Stroke Other No family history of adverse response to anesthesia Social History Smoking Status: Former smoker Tobacco Type: Cigarettes Cigarettes Per Day: 1 ppd- advised; Smoking End Date: 2018; Second Hand Exposure: No; Do You Dip or Chew Tobacco: No; Tobacco Cessation Education Requested by Patient: No Hx Alcohol Use: Yes Alcohol type: beer Hx Substance Use: No Preferred Language: Hungarian Communication Ability: Effective Visual Impairment: Limited Hearing Ability: Normal Director Clinical Pharmacology Required: No Beliefs That Will Affect Care: None Current Living Situation: Alone current occupation: DOES NOT WORK Other Information That Helps Us Care for You: No Feels Safe at Home: Yes Assistive Devices: Denture - Upper, Denture - Lower and Walker Review of Systems Review of Systems: All systems reviewed & are unremarkable except as noted in Subjective Physical Exam Constitutional: + ill appearing, + behavioral limitation s and + disheveled Eyes: PERRL, conjunctivae normal, anicteric sclerae ENMT: Mouth: + dry oral mucous membranes and + poor dentition Neck: trachea midline, no thyromegaly Respiratory: normal respiratory effort, able to speak in complete sentences and symmetric chest movement Auscultation: + diminished lung sounds Cardiovascular: RRR, no murmur, no edema Gastrointestinal (Abdomen): normal bowel sounds, soft, nontender, no hepatosplenomegaly Musculoskeletal: mild global weakness ambulating from bed to bathroom with moderate 1 person assistance gait slightly antalgic Skin: + turgor decreased and + pallor Neurologic: AAOx3 Results & Data Vital Signs (Past 12 Hours) Vital Signs Temp Pulse Pulse Resp BP Pulse Ox O2 Del Method 04/03/24 10:29 36.6 C 78 17 110/72 97 Room Air 04/03/24 07:36 37.0 C 87 17 99/65 L 96 Room Air 04/03/24 07:06 64 04/03/24 07:00 84 04/03/24 03:04 37.2 C 88 18 116/77 94 Room Air Laboratory Results 04/03/24 04/02/24 04/02/24 Range/Units 06:07 14:21 06:14 WBC 6.14 5.08 4.50 L (4.8-10.8) K/ul RBC 3.00 L 3.06 L 2.82 L (4.20-5.40) M/uL Hgb 8.9 L 9.3 L 8.5 L (12.0-16.0) g/dl Hct 27.2 L 27.8 L 25.9 L (37.0-47.0) % MCV 90.7 90.8 91.8 (80.0-100.0) fL MCH 29.7 30.4 30.1 (25.0-34.0) pg MCHC 32.7 33.5 32.8 (32.0-36.0) g/dL RDW Std Deviation 54.7 H 56.8 H 55.8 H (36.4-46.3) fL RDW Coeff of Mitch 16.7 H 17.1 H 16.7 H (11.5-14.5) % Plt Count 36 L 46 L 50 L (130-400) K/uL MPV 12.5 H 11.4 11.6 (9.4-12.4) fL Immature Gran % (Auto) % Neut % (Auto) % Lymph % (Auto) % [place] % (Auto) % Eos % (Auto) % Baso % (Auto) % Reticulocyte % (Auto) (0.50-2.00) % Neut # (Auto) (1.40-6.50) K/uL Lymph # (Auto) (1.20-3.40) K/uL [place] # (Auto) (0.11-0.59) K/uL Eos # (Auto) (0.00-0.50) K/uL Baso # (Auto) (0.00-0.20) K/uL Reticulocyte # (0.020-0.100) 10^6/uL Immature Gran # (Auto) (0.01-0.20) K/uL RBC Morphology Spherocytes Acanthocytes (Spur) Peripher Smr Path Cons Immature Retic Fraction (2.3-15.9) % Retic Hgb Content (28.2-36.6) pg Haptoglobin (43-212) mg/dL PT 19.9 H 19.3 H (9.0-12.0) Seconds INR 1.9 H 1.9 H (0.9-1.1) APTT (21-31) Seconds PTT Ratio Sodium 137 138 (136-145) mmol/L Potassium 3.5 3.7 (3.5-5.1) mmol/L Chloride 111 H 110 H (98-107) mmol/L Carbon Dioxide 19 L 21 (21-32) mmol/L Anion Gap 7 7 (3-11) BUN 9 12 (6-23) mg/dl Creatinine 1.04 0.94 (0.6-1.2) mg/dl Est Cr Clr Drug Dosing 63.7 70.5 ml/min Est GFR ( Amer) 70.0 79.2 ml/min Est GFR (Non-Af Amer) 60.4 68.3 ml/min BUN/Creatinine Ratio 8.7 L 12.8 (10-20) Glucose 94 91 (70-99(Fasting)) mg/dl POC Glucose (70-99) mg/dl Estimat Average Glucose mg/dl Hemoglobin A1c (4.5-5.6) % Lactate (0.4-2.0) mmol/L Calcium 7.6 L 7.9 L (8.6-10.3) mg/dl Ionized Calcium (1.12-1.32) mmol/L Phosphorus 3.6 3.3 (2.5-4.9) mg/dl Magnesium 1.4 L 1.7 (1.7-2.4) mg/dl Iron (35-150) mcg/dl TIBC (250-450) mcg/dl Unsaturated IBC (155-355) mcg/dl Transferrin % Sat (15-50) % Ferritin (8-388) ng/ml Total Bilirubin 0.9 0.8 (0.2-1.0) mg/dl Direct Bilirubin 0.4 H (0-0.2) mg/dl AST 48 H 53 H (13-39) U/L ALT 46 64 H (7-52) U/L Alkaline Phosphatase 120 H 129 H (34-104) U/L Lactate Dehydrogenase (86-244) U/L Troponin I High Sens (0-14) pg/ml Total Protein 6.2 6.4 (6.0-8.3) gm/dl Albumin 2.3 L 2.4 L (3.4-5.0) gm/dl Globulin 4.0 (2.5-4.0) gm/dl Albumin/Globulin Ratio 0.6 L (0.9-2) Vitamin B12 (180-914) pg/ml Folate (>5.38) ng/ml Procalcitonin (0-0.5) ng/ml TSH (0.300-4.500) uIu/ml Free T4 (0.61-1.60) ng/dl Urine Color Urine Appearance (Clear) Urine pH (4.5-7.5) Ur Specific [place] (1.000-1.030) Urine Protein (Negative) Urine Glucose (UA) (Negative) Urine Ketones (Negative) Urine Blood (Negative) Urine Nitrite (Negative) Urine Bilirubin (Negative) Urine Urobilinogen (Negative) Ur Leukocyte Esterase (Negative) Urine WBC (Auto) (0-5) /hpf Urine RBC (Auto) (0-2) /hpf U Hyaline Cast (Auto) (0-2) /lpf U Epithel Cells (Auto) (0-2) /hpf Urine Bacteria (Auto) (None Seen) Stool Occult Bld Scrn (Negative) Stl C. cayetanensis PCR (NotDetected) Stool Rotavirus A PCR (NotDetected) Stl Adenov F 40/41 PCR (NotDetected) Stool Astrovirus (PCR) (NotDetected) Stool Campylobacter PCR (NotDetected) Stool Cryptosporidium PCR (NotDetected) Stl E.coli Shiga Tox PCR (NotDetected) Stl Enterotoxigenic E PCR (NotDetected) Stool EPEC (PCR) (NotDetected) Stool EAEC (PCR) (NotDetected) Stl E. histolytica PCR (NotDetected) Stool Giardia Lamblia PCR (NotDetected) Stool Salmonella PCR (NotDetected) Stool Sapovirus (PCR) (NotDetected) Stl P. shigelloides PCR (NotDetected) Stl Shigella/EIEC PCR (NotDetected) St Y.enterocolitica PCR (NotDetected) Stool Vibrio (PCR) (NotDetected) Stl Vibrio cholerae PCR (NotDetected) Stl Norovirus GI/GII PCR (NotDetected) Adenovirus (PCR) (NotDetected) Anaplasma Smear A. phagocytophilum DNA Babesia Smear Babesia microti DNA PCR B. pertussis DNA (PCR) (NotDetected) B.parapertussis DNA PCR (NotDetected) Lyme Disease Screen (Negative) C. pneumoniae DNA (PCR) (NotDetected) Coronavirus OC43 (PCR) (NotDetected) Coronavirus HKU1 (PCR) (NotDetected) Coronavirus 229E (PCR) (NotDetected) SARS-CoV-2 (PCR) (NotDetected) Coronavirus NL63 (PCR) (NotDetected) Human Metapneumovir PCR (NotDetected) Influenza Type A (PCR) (NotDetected) Influenza Type B (PCR) (NotDetected) M. pneumoniae (PCR) (NotDetected) Parainfluenza 1 (PCR) (NotDetected) Parainfluenza 2 (PCR) (NotDetected) Parainfluenza 3 (PCR) (NotDetected) Parainfluenza 4 (PCR) (NotDetected) RSV (PCR) (NotDetected) Entero/Rhino (PCR) (NotDetected) Blood Type Antibody Screen Antibody Identification Antibody ID Referred Antibody ID Comment Direct Antiglob Test (Negative) MARY (IgG-AHG) (Negative) MARY, Polyspecific (Negative) MARY C3b, C3d 5 Min (Negative) Crossmatch 04/01/24 04/01/24 04/01/24 Range/Units 21:15 16:24 08:56 WBC 4.44 L 5.75 (4.8-10.8) K/ul RBC 2.27 L 2.31 L (4.20-5.40) M/uL Hgb 6.9 L* 7.1 L (12.0-16.0) g/dl Hct 21.4 L 22.0 L (37.0-47.0) % MCV 94.3 95.2 (80.0-100.0) fL MCH 30.4 30.7 (25.0-34.0) pg MCHC 32.2 32.3 (32.0-36.0) g/dL RDW Std Deviation 51.8 H 53.3 H (36.4-46.3) fL RDW Coeff of Mitch 15.2 H 15.3 H (11.5-14.5) % Plt Count 45 L 48 L (130-400) K/uL MPV 12.3 12.3 (9.4-12.4) fL Immature Gran % (Auto) 4.7 % Neut % (Auto) 71.2 % Lymph % (Auto) 15.8 % [place] % (Auto) 8.1 % Eos % (Auto) 0.0 % Baso % (Auto) 0.2 % Reticulocyte % (Auto) (0.50-2.00) % Neut # (Auto) 3.16 (1.40-6.50) K/uL Lymph # (Auto) 0.70 L (1.20-3.40) K/uL [place] # (Auto) 0.36 (0.11-0.59) K/uL Eos # (Auto) 0.00 (0.00-0.50) K/uL Baso # (Auto) 0.01 (0.00-0.20) K/uL Reticulocyte # (0.020-0.100) 10^6/uL Immature Gran # (Auto) 0.21 H (0.01-0.20) K/uL RBC Morphology Spherocytes 2+ Acanthocytes (Spur) 1+ Peripher Smr Path Cons Immature Retic Fraction (2.3-15.9) % Retic Hgb Content (28.2-36.6) pg Haptoglobin (43-212) mg/dL PT 18.2 H (9.0-12.0) Seconds INR 1.8 H (0.9-1.1) APTT 83 H* (21-31) Seconds PTT Ratio 3.1 Sodium 134 L (136-145) mmol/L Potassium 3.3 L (3.5-5.1) mmol/L Chloride 105 (98-107) mmol/L Carbon Dioxide 20 L (21-32) mmol/L Anion Gap 9 (3-11) BUN 15 (6-23) mg/dl Creatinine 0.94 (0.6-1.2) mg/dl Est Cr Clr Drug Dosing 70.5 ml/min Est GFR ( Amer) 79.2 ml/min Est GFR (Non-Af Amer) 68.3 ml/min BUN/Creatinine Ratio 16.0 (10-20) Glucose 91 (70-99(Fasting)) mg/dl POC Glucose (70-99) mg/dl Estimat Average Glucose mg/dl Hemoglobin A1c (4.5-5.6) % Lactate (0.4-2.0) mmol/L Calcium 7.8 L (8.6-10.3) mg/dl Ionized Calcium (1.12-1.32) mmol/L Phosphorus (2.5-4.9) mg/dl Magnesium (1.7-2.4) mg/dl Iron (35-150) mcg/dl TIBC (250-450) mcg/dl Unsaturated IBC (155-355) mcg/dl Transferrin % Sat (15-50) % Ferritin (8-388) ng/ml Total Bilirubin (0.2-1.0) mg/dl Direct Bilirubin (0-0.2) mg/dl AST (13-39) U/L ALT (7-52) U/L Alkaline Phosphatase (34-104) U/L Lactate Dehydrogenase (86-244) U/L Troponin I High Sens (0-14) pg/ml Total Protein (6.0-8.3) gm/dl Albumin (3.4-5.0) gm/dl Globulin (2.5-4.0) gm/dl Albumin/Globulin Ratio (0.9-2) Vitamin B12 (180-914) pg/ml Folate (>5.38) ng/ml Procalcitonin (0-0.5) ng/ml TSH (0.300-4.500) uIu/ml Free T4 (0.61-1.60) ng/dl Urine Color Urine Appearance (Clear) Urine pH (4.5-7.5) Ur Specific [place] (1.000-1.030) Urine Protein (Negative) Urine Glucose (UA) (Negative) Urine Ketones (Negative) Urine Blood (Negative) Urine Nitrite (Negative) Urine Bilirubin (Negative) Urine Urobilinogen (Negative) Ur Leukocyte Esterase (Negative) Urine WBC (Auto) (0-5) /hpf Urine RBC (Auto) (0-2) /hpf U Hyaline Cast (Auto) (0-2) /lpf U Epithel Cells (Auto) (0-2) /hpf Urine Bacteria (Auto) (None Seen) Stool Occult Bld Scrn (Negative) Stl C. cayetanensis PCR (NotDetected) Stool Rotavirus A PCR (NotDetected) Stl Adenov F 40/41 PCR (NotDetected) Stool Astrovirus (PCR) (NotDetected) Stool Campylobacter PCR (NotDetected) Stool Cryptosporidium PCR (NotDetected) Stl E.coli Shiga Tox PCR (NotDetected) Stl Enterotoxigenic E PCR (NotDetected) Stool EPEC (PCR) (NotDetected) Stool EAEC (PCR) (NotDetected) Stl E. histolytica PCR (NotDetected) Stool Giardia Lamblia PCR (NotDetected) Stool Salmonella PCR (NotDetected) Stool Sapovirus (PCR) (NotDetected) Stl P. shigelloides PCR (NotDetected) Stl Shigella/EIEC PCR (NotDetected) St Y.enterocolitica PCR (NotDetected) Stool Vibrio (PCR) (NotDetected) Stl Vibrio cholerae PCR (NotDetected) Stl Norovirus GI/GII PCR (NotDetected) Adenovirus (PCR) (NotDetected) Anaplasma Smear A. phagocytophilum DNA Babesia Smear Babesia microti DNA PCR B. pertussis DNA (PCR) (NotDetected) B.parapertussis DNA PCR (NotDetected) Lyme Disease Screen (Negative) C. pneumoniae DNA (PCR) (NotDetected) Coronavirus OC43 (PCR) (NotDetected) Coronavirus HKU1 (PCR) (NotDetected) Coronavirus 229E (PCR) (NotDetected) SARS-CoV-2 (PCR) (NotDetected) Coronavirus NL63 (PCR) (NotDetected) Human Metapneumovir PCR (NotDetected) Influenza Type A (PCR) (NotDetected) Influenza Type B (PCR) (NotDetected) M. pneumoniae (PCR) (NotDetected) Parainfluenza 1 (PCR) (NotDetected) Parainfluenza 2 (PCR) (NotDetected) Parainfluenza 3 (PCR) (NotDetected) Parainfluenza 4 (PCR) (NotDetected) RSV (PCR) (NotDetected) Entero/Rhino (PCR) (NotDetected) Blood Type Antibody Screen Antibody Identification Antibody ID Referred Pending Antibody ID Comment Direct Antiglob Test (Negative) MARY (IgG-AHG) (Negative) MARY, Polyspecific (Negative) MARY C3b, C3d 5 Min (Negative) Crossmatch 04/01/24 04/01/24 04/01/24 Range/Units 05:38 05:38 05:38 WBC (4.8-10.8) K/ul RBC (4.20-5.40) M/uL Hgb (12.0-16.0) g/dl Hct (37.0-47.0) % MCV (80.0-100.0) fL MCH (25.0-34.0) pg MCHC (32.0-36.0) g/dL RDW Std Deviation (36.4-46.3) fL RDW Coeff of Mitch (11.5-14.5) % Plt Count (130-400) K/uL MPV (9.4-12.4) fL Immature Gran % (Auto) % Neut % (Auto) % Lymph % (Auto) % [place] % (Auto) % Eos % (Auto) % Baso % (Auto) % Reticulocyte % (Auto) (0.50-2.00) % Neut # (Auto) (1.40-6.50) K/uL Lymph # (Auto) (1.20-3.40) K/uL [place] # (Auto) (0.11-0.59) K/uL Eos # (Auto) (0.00-0.50) K/uL Baso # (Auto) (0.00-0.20) K/uL Reticulocyte # (0.020-0.100) 10^6/uL Immature Gran # (Auto) (0.01-0.20) K/uL RBC Morphology Spherocytes Acanthocytes (Spur) Peripher Smr Path Cons Cancelled Immature Retic Fraction Cancelled 27.6 H (2.3-15.9) % Retic Hgb Content Cancelled 26.7 L (28.2-36.6) pg Haptoglobin 363 H (43-212) mg/dL PT 18.4 H (9.0-12.0) Seconds INR 1.8 H (0.9-1.1) APTT (21-31) Seconds PTT Ratio Sodium 133 L (136-145) mmol/L Potassium 3.4 L (3.5-5.1) mmol/L Chloride 105 (98-107) mmol/L Carbon Dioxide 21 (21-32) mmol/L Anion Gap 7 (3-11) BUN 18 (6-23) mg/dl Creatinine 0.98 (0.6-1.2) mg/dl Est Cr Clr Drug Dosing 67.6 ml/min Est GFR ( Amer) 75.3 ml/min Est GFR (Non-Af Amer) 64.9 ml/min BUN/Creatinine Ratio 18.4 (10-20) Glucose 109 H (70-99(Fasting)) mg/dl POC Glucose (70-99) mg/dl Estimat Average Glucose 77 mg/dl Hemoglobin A1c 4.3 L (4.5-5.6) % Lactate (0.4-2.0) mmol/L Calcium 8.0 L (8.6-10.3) mg/dl Ionized Calcium 1.21 (1.12-1.32) mmol/L Phosphorus 3.2 (2.5-4.9) mg/dl Magnesium 1.8 (1.7-2.4) mg/dl Iron 70 (35-150) mcg/dl TIBC 158 L (250-450) mcg/dl Unsaturated IBC 88 L (155-355) mcg/dl Transferrin % Sat 44 (15-50) % Ferritin 922.7 H (8-388) ng/ml Total Bilirubin 0.8 D (0.2-1.0) mg/dl Direct Bilirubin (0-0.2) mg/dl AST 124 H (13-39) U/L ALT 92 H (7-52) U/L Alkaline Phosphatase 149 H (34-104) U/L Lactate Dehydrogenase 229 (86-244) U/L Troponin I High Sens (0-14) pg/ml Total Protein 6.3 (6.0-8.3) gm/dl Albumin 2.4 L (3.4-5.0) gm/dl Globulin 3.9 (2.5-4.0) gm/dl Albumin/Globulin Ratio 0.6 L (0.9-2) Vitamin B12 985 H (180-914) pg/ml Folate 12.72 (>5.38) ng/ml Procalcitonin (0-0.5) ng/ml TSH (0.300-4.500) uIu/ml Free T4 (0.61-1.60) ng/dl Urine Color Urine Appearance (Clear) Urine pH (4.5-7.5) Ur Specific [place] (1.000-1.030) Urine Protein (Negative) Urine Glucose (UA) (Negative) Urine Ketones (Negative) Urine Blood (Negative) Urine Nitrite (Negative) Urine Bilirubin (Negative) Urine Urobilinogen (Negative) Ur Leukocyte Esterase (Negative) Urine WBC (Auto) (0-5) /hpf Urine RBC (Auto) (0-2) /hpf U Hyaline Cast (Auto) (0-2) /lpf U Epithel Cells (Auto) (0-2) /hpf Urine Bacteria (Auto) (None Seen) Stool Occult Bld Scrn (Negative) Stl C. cayetanensis PCR (NotDetected) Stool Rotavirus A PCR (NotDetected) Stl Adenov F 40/41 PCR (NotDetected) Stool Astrovirus (PCR) (NotDetected) Stool Campylobacter PCR (NotDetected) Stool Cryptosporidium PCR (NotDetected) Stl E.coli Shiga Tox PCR (NotDetected) Stl Enterotoxigenic E PCR (NotDetected) Stool EPEC (PCR) (NotDetected) Stool EAEC (PCR) (NotDetected) Stl E. histolytica PCR (NotDetected) Stool Giardia Lamblia PCR (NotDetected) Stool Salmonella PCR (NotDetected) Stool Sapovirus (PCR) (NotDetected) Stl P. shigelloides PCR (NotDetected) Stl Shigella/EIEC PCR (NotDetected) St Y.enterocolitica PCR (NotDetected) Stool Vibrio (PCR) (NotDetected) Stl Vibrio cholerae PCR (NotDetected) Stl Norovirus GI/GII PCR (NotDetected) Adenovirus (PCR) (NotDetected) Anaplasma Smear A. phagocytophilum DNA Babesia Smear Babesia microti DNA PCR B. pertussis DNA (PCR) (NotDetected) B.parapertussis DNA PCR (NotDetected) Lyme Disease Screen (Negative) C. pneumoniae DNA (PCR) (NotDetected) Coronavirus OC43 (PCR) (NotDetected) Coronavirus HKU1 (PCR) (NotDetected) Coronavirus 229E (PCR) (NotDetected) SARS-CoV-2 (PCR) (NotDetected) Coronavirus NL63 (PCR) (NotDetected) Human Metapneumovir PCR (NotDetected) Influenza Type A (PCR) (NotDetected) Influenza Type B (PCR) (NotDetected) M. pneumoniae (PCR) (NotDetected) Parainfluenza 1 (PCR) (NotDetected) Parainfluenza 2 (PCR) (NotDetected) Parainfluenza 3 (PCR) (NotDetected) Parainfluenza 4 (PCR) (NotDetected) RSV (PCR) (NotDetected) Entero/Rhino (PCR) (NotDetected) Blood Type Antibody Screen Antibody Identification Antibody ID Referred Antibody ID Comment Direct Antiglob Test (Negative) MARY (IgG-AHG) (Negative) MARY, Polyspecific (Negative) MARY C3b, C3d 5 Min (Negative) Crossmatch 04/01/24 04/01/24 04/01/24 Range/Units 05:38 05:38 05:38 WBC 4.65 L (4.8-10.8) K/ul RBC 2.24 L (4.20-5.40) M/uL Hgb 6.8 L* (12.0-16.0) g/dl Hct 21.1 L (37.0-47.0) % MCV 94.2 (80.0-100.0) fL MCH 30.4 (25.0-34.0) pg MCHC 32.2 (32.0-36.0) g/dL RDW Std Deviation 51.3 H (36.4-46.3) fL RDW Coeff of Mitch 15.0 H (11.5-14.5) % Plt Count 37 L (130-400) K/uL MPV 11.5 (9.4-12.4) fL Immature Gran % (Auto) 5.2 % Neut % (Auto) 73.7 % Lymph % (Auto) 12.5 % [place] % (Auto) 8.4 % Eos % (Auto) 0.0 % Baso % (Auto) 0.2 % Reticulocyte % (Auto) Cancelled 3.76 H (0.50-2.00) % Neut # (Auto) 3.43 (1.40-6.50) K/uL Lymph # (Auto) 0.58 L (1.20-3.40) K/uL [place] # (Auto) 0.39 (0.11-0.59) K/uL Eos # (Auto) 0.00 (0.00-0.50) K/uL Baso # (Auto) 0.01 (0.00-0.20) K/uL Reticulocyte # Cancelled 0.080 (0.020-0.100) 10^6/uL Immature Gran # (Auto) 0.24 H (0.01-0.20) K/uL RBC Morphology Unremarkable Spherocytes Acanthocytes (Spur) Peripher Smr Path Cons Immature Retic Fraction (2.3-15.9) % Retic Hgb Content (28.2-36.6) pg Haptoglobin (43-212) mg/dL PT (9.0-12.0) Seconds INR (0.9-1.1) APTT (21-31) Seconds PTT Ratio Sodium (136-145) mmol/L Potassium (3.5-5.1) mmol/L Chloride (98-107) mmol/L Carbon Dioxide (21-32) mmol/L Anion Gap (3-11) BUN (6-23) mg/dl Creatinine (0.6-1.2) mg/dl Est Cr Clr Drug Dosing ml/min Est GFR ( Amer) ml/min Est GFR (Non-Af Amer) ml/min BUN/Creatinine Ratio (10-20) Glucose (70-99(Fasting)) mg/dl POC Glucose (70-99) mg/dl Estimat Average Glucose mg/dl Hemoglobin A1c (4.5-5.6) % Lactate (0.4-2.0) mmol/L Calcium (8.6-10.3) mg/dl Ionized Calcium (1.12-1.32) mmol/L Phosphorus (2.5-4.9) mg/dl Magnesium (1.7-2.4) mg/dl Iron (35-150) mcg/dl TIBC (250-450) mcg/dl Unsaturated IBC (155-355) mcg/dl Transferrin % Sat (15-50) % Ferritin (8-388) ng/ml Total Bilirubin (0.2-1.0) mg/dl Direct Bilirubin (0-0.2) mg/dl AST (13-39) U/L ALT (7-52) U/L Alkaline Phosphatase (34-104) U/L Lactate Dehydrogenase (86-244) U/L Troponin I High Sens (0-14) pg/ml Total Protein (6.0-8.3) gm/dl Albumin (3.4-5.0) gm/dl Globulin (2.5-4.0) gm/dl Albumin/Globulin Ratio (0.9-2) Vitamin B12 (180-914) pg/ml Folate (>5.38) ng/ml Procalcitonin (0-0.5) ng/ml TSH (0.300-4.500) uIu/ml Free T4 (0.61-1.60) ng/dl Urine Color Urine Appearance (Clear) Urine pH (4.5-7.5) Ur Specific [place] (1.000-1.030) Urine Protein (Negative) Urine Glucose (UA) (Negative) Urine Ketones (Negative) Urine Blood (Negative) Urine Nitrite (Negative) Urine Bilirubin (Negative) Urine Urobilinogen (Negative) Ur Leukocyte Esterase (Negative) Urine WBC (Auto) (0-5) /hpf Urine RBC (Auto) (0-2) /hpf U Hyaline Cast (Auto) (0-2) /lpf U Epithel Cells (Auto) (0-2) /hpf Urine Bacteria (Auto) (None Seen) Stool Occult Bld Scrn (Negative) Stl C. cayetanensis PCR (NotDetected) Stool Rotavirus A PCR (NotDetected) Stl Adenov F 40/41 PCR (NotDetected) Stool Astrovirus (PCR) (NotDetected) Stool Campylobacter PCR (NotDetected) Stool Cryptosporidium PCR (NotDetected) Stl E.coli Shiga Tox PCR (NotDetected) Stl Enterotoxigenic E PCR (NotDetected) Stool EPEC (PCR) (NotDetected) Stool EAEC (PCR) (NotDetected) Stl E. histolytica PCR (NotDetected) Stool Giardia Lamblia PCR (NotDetected) Stool Salmonella PCR (NotDetected) Stool Sapovirus (PCR) (NotDetected) Stl P. shigelloides PCR (NotDetected) Stl Shigella/EIEC PCR (NotDetected) St Y.enterocolitica PCR (NotDetected) Stool Vibrio (PCR) (NotDetected) Stl Vibrio cholerae PCR (NotDetected) Stl Norovirus GI/GII PCR (NotDetected) Adenovirus (PCR) (NotDetected) Anaplasma Smear A. phagocytophilum DNA Babesia Smear Babesia microti DNA PCR B. pertussis DNA (PCR) (NotDetected) B.parapertussis DNA PCR (NotDetected) Lyme Disease Screen (Negative) C. pneumoniae DNA (PCR) (NotDetected) Coronavirus OC43 (PCR) (NotDetected) Coronavirus HKU1 (PCR) (NotDetected) Coronavirus 229E (PCR) (NotDetected) SARS-CoV-2 (PCR) (NotDetected) Coronavirus NL63 (PCR) (NotDetected) Human Metapneumovir PCR (NotDetected) Influenza Type A (PCR) (NotDetected) Influenza Type B (PCR) (NotDetected) M. pneumoniae (PCR) (NotDetected) Parainfluenza 1 (PCR) (NotDetected) Parainfluenza 2 (PCR) (NotDetected) Parainfluenza 3 (PCR) (NotDetected) Parainfluenza 4 (PCR) (NotDetected) RSV (PCR) (NotDetected) Entero/Rhino (PCR) (NotDetected) Blood Type Antibody Screen Antibody Identification Antibody ID Referred Antibody ID Comment Direct Antiglob Test (Negative) MARY (IgG-AHG) (Negative) MARY, Polyspecific (Negative) MARY C3b, C3d 5 Min (Negative) Crossmatch 03/31/24 03/31/24 03/31/24 Range/Units Unknown 16:28 11:14 WBC (4.8-10.8) K/ul RBC (4.20-5.40) M/uL Hgb (12.0-16.0) g/dl Hct (37.0-47.0) % MCV (80.0-100.0) fL MCH (25.0-34.0) pg MCHC (32.0-36.0) g/dL RDW Std Deviation (36.4-46.3) fL RDW Coeff of Imtch (11.5-14.5) % Plt Count (130-400) K/uL MPV (9.4-12.4) fL Immature Gran % (Auto) % Neut % (Auto) % Lymph % (Auto) % [place] % (Auto) % Eos % (Auto) % Baso % (Auto) % Reticulocyte % (Auto) (0.50-2.00) % Neut # (Auto) (1.40-6.50) K/uL Lymph # (Auto) (1.20-3.40) K/uL [place] # (Auto) (0.11-0.59) K/uL Eos # (Auto) (0.00-0.50) K/uL Baso # (Auto) (0.00-0.20) K/uL Reticulocyte # (0.020-0.100) 10^6/uL Immature Gran # (Auto) (0.01-0.20) K/uL RBC Morphology Spherocytes Acanthocytes (Spur) Peripher Smr Path Cons Immature Retic Fraction (2.3-15.9) % Retic Hgb Content (28.2-36.6) pg Haptoglobin (43-212) mg/dL PT (9.0-12.0) Seconds INR (0.9-1.1) APTT (21-31) Seconds PTT Ratio Sodium (136-145) mmol/L Potassium (3.5-5.1) mmol/L Chloride (98-107) mmol/L Carbon Dioxide (21-32) mmol/L Anion Gap (3-11) BUN (6-23) mg/dl Creatinine (0.6-1.2) mg/dl Est Cr Clr Drug Dosing ml/min Est GFR ( Amer) ml/min Est GFR (Non-Af Amer) ml/min BUN/Creatinine Ratio (10-20) Glucose (70-99(Fasting)) mg/dl POC Glucose 120 H (70-99) mg/dl Estimat Average Glucose mg/dl Hemoglobin A1c (4.5-5.6) % Lactate 1.0 (0.4-2.0) mmol/L Calcium (8.6-10.3) mg/dl Ionized Calcium 1.06 L (1.12-1.32) mmol/L Phosphorus (2.5-4.9) mg/dl Magnesium (1.7-2.4) mg/dl Iron (35-150) mcg/dl TIBC (250-450) mcg/dl Unsaturated IBC (155-355) mcg/dl Transferrin % Sat (15-50) % Ferritin (8-388) ng/ml Total Bilirubin (0.2-1.0) mg/dl Direct Bilirubin (0-0.2) mg/dl AST (13-39) U/L ALT (7-52) U/L Alkaline Phosphatase (34-104) U/L Lactate Dehydrogenase (86-244) U/L Troponin I High Sens (0-14) pg/ml Total Protein (6.0-8.3) gm/dl Albumin (3.4-5.0) gm/dl Globulin (2.5-4.0) gm/dl Albumin/Globulin Ratio (0.9-2) Vitamin B12 (180-914) pg/ml Folate (>5.38) ng/ml Procalcitonin (0-0.5) ng/ml TSH (0.300-4.500) uIu/ml Free T4 (0.61-1.60) ng/dl Urine Color Urine Appearance (Clear) Urine pH (4.5-7.5) Ur Specific [place] (1.000-1.030) Urine Protein (Negative) Urine Glucose (UA) (Negative) Urine Ketones (Negative) Urine Blood (Negative) Urine Nitrite (Negative) Urine Bilirubin (Negative) Urine Urobilinogen (Negative) Ur Leukocyte Esterase (Negative) Urine WBC (Auto) (0-5) /hpf Urine RBC (Auto) (0-2) /hpf U Hyaline Cast (Auto) (0-2) /lpf U Epithel Cells (Auto) (0-2) /hpf Urine Bacteria (Auto) (None Seen) Stool Occult Bld Scrn Positive A (Negative) Stl C. cayetanensis PCR (NotDetected) Stool Rotavirus A PCR (NotDetected) Stl Adenov F 40/41 PCR (NotDetected) Stool Astrovirus (PCR) (NotDetected) Stool Campylobacter PCR (NotDetected) Stool Cryptosporidium PCR (NotDetected) Stl E.coli Shiga Tox PCR (NotDetected) Stl Enterotoxigenic E PCR (NotDetected) Stool EPEC (PCR) (NotDetected) Stool EAEC (PCR) (NotDetected) Stl E. histolytica PCR (NotDetected) Stool Giardia Lamblia PCR (NotDetected) Stool Salmonella PCR (NotDetected) Stool Sapovirus (PCR) (NotDetected) Stl P. shigelloides PCR (NotDetected) Stl Shigella/EIEC PCR (NotDetected) St Y.enterocolitica PCR (NotDetected) Stool Vibrio (PCR) (NotDetected) Stl Vibrio cholerae PCR (NotDetected) Stl Norovirus GI/GII PCR (NotDetected) Adenovirus (PCR) (NotDetected) Anaplasma Smear A. phagocytophilum DNA Babesia Smear Babesia microti DNA PCR B. pertussis DNA (PCR) (NotDetected) B.parapertussis DNA PCR (NotDetected) Lyme Disease Screen (Negative) C. pneumoniae DNA (PCR) (NotDetected) Coronavirus OC43 (PCR) (NotDetected) Coronavirus HKU1 (PCR) (NotDetected) Coronavirus 229E (PCR) (NotDetected) SARS-CoV-2 (PCR) (NotDetected) Coronavirus NL63 (PCR) (NotDetected) Human Metapneumovir PCR (NotDetected) Influenza Type A (PCR) (NotDetected) Influenza Type B (PCR) (NotDetected) M. pneumoniae (PCR) (NotDetected) Parainfluenza 1 (PCR) (NotDetected) Parainfluenza 2 (PCR) (NotDetected) Parainfluenza 3 (PCR) (NotDetected) Parainfluenza 4 (PCR) (NotDetected) RSV (PCR) (NotDetected) Entero/Rhino (PCR) (NotDetected) Blood Type Antibody Screen Antibody Identification Antibody ID Referred Antibody ID Comment Direct Antiglob Test (Negative) MARY (IgG-AHG) (Negative) MARY, Polyspecific (Negative) MARY C3b, C3d 5 Min (Negative) Crossmatch 03/31/24 03/31/24 03/31/24 Range/Units 10:16 10:11 09:10 WBC (4.8-10.8) K/ul RBC (4.20-5.40) M/uL Hgb (12.0-16.0) g/dl Hct (37.0-47.0) % MCV (80.0-100.0) fL MCH (25.0-34.0) pg MCHC (32.0-36.0) g/dL RDW Std Deviation (36.4-46.3) fL RDW Coeff of Mitch (11.5-14.5) % Plt Count (130-400) K/uL MPV (9.4-12.4) fL Immature Gran % (Auto) % Neut % (Auto) % Lymph % (Auto) % [place] % (Auto) % Eos % (Auto) % Baso % (Auto) % Reticulocyte % (Auto) (0.50-2.00) % Neut # (Auto) (1.40-6.50) K/uL Lymph # (Auto) (1.20-3.40) K/uL [place] # (Auto) (0.11-0.59) K/uL Eos # (Auto) (0.00-0.50) K/uL Baso # (Auto) (0.00-0.20) K/uL Reticulocyte # (0.020-0.100) 10^6/uL Immature Gran # (Auto) (0.01-0.20) K/uL RBC Morphology Spherocytes Acanthocytes (Spur) Peripher Smr Path Cons Immature Retic Fraction (2.3-15.9) % Retic Hgb Content (28.2-36.6) pg Haptoglobin (43-212) mg/dL PT (9.0-12.0) Seconds INR (0.9-1.1) APTT (21-31) Seconds PTT Ratio Sodium (136-145) mmol/L Potassium (3.5-5.1) mmol/L Chloride (98-107) mmol/L Carbon Dioxide (21-32) mmol/L Anion Gap (3-11) BUN (6-23) mg/dl Creatinine (0.6-1.2) mg/dl Est Cr Clr Drug Dosing ml/min Est GFR ( Amer) ml/min Est GFR (Non-Af Amer) ml/min BUN/Creatinine Ratio (10-20) Glucose (70-99(Fasting)) mg/dl POC Glucose (70-99) mg/dl Estimat Average Glucose mg/dl Hemoglobin A1c (4.5-5.6) % Lactate (0.4-2.0) mmol/L Calcium (8.6-10.3) mg/dl Ionized Calcium (1.12-1.32) mmol/L Phosphorus (2.5-4.9) mg/dl Magnesium (1.7-2.4) mg/dl Iron (35-150) mcg/dl TIBC (250-450) mcg/dl Unsaturated IBC (155-355) mcg/dl Transferrin % Sat (15-50) % Ferritin (8-388) ng/ml Total Bilirubin (0.2-1.0) mg/dl Direct Bilirubin (0-0.2) mg/dl AST (13-39) U/L ALT (7-52) U/L Alkaline Phosphatase (34-104) U/L Lactate Dehydrogenase (86-244) U/L Troponin I High Sens 57.9 H* (0-14) pg/ml Total Protein (6.0-8.3) gm/dl Albumin (3.4-5.0) gm/dl Globulin (2.5-4.0) gm/dl Albumin/Globulin Ratio (0.9-2) Vitamin B12 (180-914) pg/ml Folate (>5.38) ng/ml Procalcitonin (0-0.5) ng/ml TSH (0.300-4.500) uIu/ml Free T4 (0.61-1.60) ng/dl Urine Color Yellow Urine Appearance Clear (Clear) Urine pH 6.0 (4.5-7.5) Ur Specific [place] 1.019 (1.000-1.030) Urine Protein 1+ H (Negative) Urine Glucose (UA) Negative (Negative) Urine Ketones Negative (Negative) Urine Blood 2+ H (Negative) Urine Nitrite Negative (Negative) Urine Bilirubin Negative (Negative) Urine Urobilinogen Negative (Negative) Ur Leukocyte Esterase Negative (Negative) Urine WBC (Auto) 0-5 (0-5) /hpf Urine RBC (Auto) 3-5 H (0-2) /hpf U Hyaline Cast (Auto) 0-2 (0-2) /lpf U Epithel Cells (Auto) 0-2 (0-2) /hpf Urine Bacteria (Auto) None Seen (None Seen) Stool Occult Bld Scrn (Negative) Stl C. cayetanensis PCR (NotDetected) Stool Rotavirus A PCR (NotDetected) Stl Adenov F 40/41 PCR (NotDetected) Stool Astrovirus (PCR) (NotDetected) Stool Campylobacter PCR (NotDetected) Stool Cryptosporidium PCR (NotDetected) Stl E.coli Shiga Tox PCR (NotDetected) Stl Enterotoxigenic E PCR (NotDetected) Stool EPEC (PCR) (NotDetected) Stool EAEC (PCR) (NotDetected) Stl E. histolytica PCR (NotDetected) Stool Giardia Lamblia PCR (NotDetected) Stool Salmonella PCR (NotDetected) Stool Sapovirus (PCR) (NotDetected) Stl P. shigelloides PCR (NotDetected) Stl Shigella/EIEC PCR (NotDetected) St Y.enterocolitica PCR (NotDetected) Stool Vibrio (PCR) (NotDetected) Stl Vibrio cholerae PCR (NotDetected) Stl Norovirus GI/GII PCR (NotDetected) Adenovirus (PCR) (NotDetected) Anaplasma Smear A. phagocytophilum DNA Babesia Smear Babesia microti DNA PCR Pending B. pertussis DNA (PCR) (NotDetected) B.parapertussis DNA PCR (NotDetected) Lyme Disease Screen (Negative) C. pneumoniae DNA (PCR) (NotDetected) Coronavirus OC43 (PCR) (NotDetected) Coronavirus HKU1 (PCR) (NotDetected) Coronavirus 229E (PCR) (NotDetected) SARS-CoV-2 (PCR) (NotDetected) Coronavirus NL63 (PCR) (NotDetected) Human Metapneumovir PCR (NotDetected) Influenza Type A (PCR) (NotDetected) Influenza Type B (PCR) (NotDetected) M. pneumoniae (PCR) (NotDetected) Parainfluenza 1 (PCR) (NotDetected) Parainfluenza 2 (PCR) (NotDetected) Parainfluenza 3 (PCR) (NotDetected) Parainfluenza 4 (PCR) (NotDetected) RSV (PCR) (NotDetected) Entero/Rhino (PCR) (NotDetected) Blood Type A Positive Antibody Screen POSITIVE A Antibody Identification Auto Cold Agglutinin Antibody ID Referred Antibody ID Comment Direct Antiglob Test Positive A (Negative) MARY (IgG-AHG) Weak Pos A (Negative) MARY, Polyspecific Weak Pos A (Negative) MARY C3b, C3d 5 Min 1+ A (Negative) Crossmatch See Detail 03/31/24 03/31/24 03/31/24 Range/Units 08:20 08:19 08:17 WBC (4.8-10.8) K/ul RBC (4.20-5.40) M/uL Hgb (12.0-16.0) g/dl Hct (37.0-47.0) % MCV (80.0-100.0) fL MCH (25.0-34.0) pg MCHC (32.0-36.0) g/dL RDW Std Deviation (36.4-46.3) fL RDW Coeff of Mitch (11.5-14.5) % Plt Count (130-400) K/uL MPV (9.4-12.4) fL Immature Gran % (Auto) % Neut % (Auto) % Lymph % (Auto) % [place] % (Auto) % Eos % (Auto) % Baso % (Auto) % Reticulocyte % (Auto) (0.50-2.00) % Neut # (Auto) (1.40-6.50) K/uL Lymph # (Auto) (1.20-3.40) K/uL [place] # (Auto) (0.11-0.59) K/uL Eos # (Auto) (0.00-0.50) K/uL Baso # (Auto) (0.00-0.20) K/uL Reticulocyte # (0.020-0.100) 10^6/uL Immature Gran # (Auto) (0.01-0.20) K/uL RBC Morphology Spherocytes Acanthocytes (Spur) Peripher Smr Path Cons Immature Retic Fraction (2.3-15.9) % Retic Hgb Content (28.2-36.6) pg Haptoglobin (43-212) mg/dL PT (9.0-12.0) Seconds INR (0.9-1.1) APTT (21-31) Seconds PTT Ratio Sodium (136-145) mmol/L Potassium (3.5-5.1) mmol/L Chloride (98-107) mmol/L Carbon Dioxide (21-32) mmol/L Anion Gap (3-11) BUN (6-23) mg/dl Creatinine (0.6-1.2) mg/dl Est Cr Clr Drug Dosing ml/min Est GFR ( Amer) ml/min Est GFR (Non-Af Amer) ml/min BUN/Creatinine Ratio (10-20) Glucose (70-99(Fasting)) mg/dl POC Glucose (70-99) mg/dl Estimat Average Glucose mg/dl Hemoglobin A1c (4.5-5.6) % Lactate (0.4-2.0) mmol/L Calcium (8.6-10.3) mg/dl Ionized Calcium (1.12-1.32) mmol/L Phosphorus (2.5-4.9) mg/dl Magnesium (1.7-2.4) mg/dl Iron (35-150) mcg/dl TIBC (250-450) mcg/dl Unsaturated IBC (155-355) mcg/dl Transferrin % Sat (15-50) % Ferritin (8-388) ng/ml Total Bilirubin (0.2-1.0) mg/dl Direct Bilirubin (0-0.2) mg/dl AST (13-39) U/L ALT (7-52) U/L Alkaline Phosphatase (34-104) U/L Lactate Dehydrogenase (86-244) U/L Troponin I High Sens (0-14) pg/ml Total Protein (6.0-8.3) gm/dl Albumin (3.4-5.0) gm/dl Globulin (2.5-4.0) gm/dl Albumin/Globulin Ratio (0.9-2) Vitamin B12 (180-914) pg/ml Folate (>5.38) ng/ml Procalcitonin Cancelled (0-0.5) ng/ml TSH 8.454 H (0.300-4.500) uIu/ml Free T4 0.98 (0.61-1.60) ng/dl Urine Color Urine Appearance (Clear) Urine pH (4.5-7.5) Ur Specific [place] (1.000-1.030) Urine Protein (Negative) Urine Glucose (UA) (Negative) Urine Ketones (Negative) Urine Blood (Negative) Urine Nitrite (Negative) Urine Bilirubin (Negative) Urine Urobilinogen (Negative) Ur Leukocyte Esterase (Negative) Urine WBC (Auto) (0-5) /hpf Urine RBC (Auto) (0-2) /hpf U Hyaline Cast (Auto) (0-2) /lpf U Epithel Cells (Auto) (0-2) /hpf Urine Bacteria (Auto) (None Seen) Stool Occult Bld Scrn (Negative) Stl C. cayetanensis PCR Not Detected (NotDetected) Stool Rotavirus A PCR Not Detected (NotDetected) Stl Adenov F 40/41 PCR Not Detected (NotDetected) Stool Astrovirus (PCR) Not Detected (NotDetected) Stool Campylobacter PCR Not Detected (NotDetected) Stool Cryptosporidium PCR Not Detected (NotDetected) Stl E.coli Shiga Tox PCR Not Detected (NotDetected) Stl Enterotoxigenic E PCR Not Detected (NotDetected) Stool EPEC (PCR) Not Detected (NotDetected) Stool EAEC (PCR) Not Detected (NotDetected) Stl E. histolytica PCR Not Detected (NotDetected) Stool Giardia Lamblia PCR Not Detected (NotDetected) Stool Salmonella PCR Not Detected (NotDetected) Stool Sapovirus (PCR) Not Detected (NotDetected) Stl P. shigelloides PCR Not Detected (NotDetected) Stl Shigella/EIEC PCR Not Detected (NotDetected) St Y.enterocolitica PCR Not Detected (NotDetected) Stool Vibrio (PCR) Not Detected (NotDetected) Stl Vibrio cholerae PCR Not Detected (NotDetected) Stl Norovirus GI/GII PCR Not Detected (NotDetected) Adenovirus (PCR) Not Detected (NotDetected) Anaplasma Smear See Comment A. phagocytophilum DNA Pending Babesia Smear See Comment Babesia microti DNA PCR B. pertussis DNA (PCR) Not Detected (NotDetected) B.parapertussis DNA PCR Not Detected (NotDetected) Lyme Disease Screen Negative (Negative) C. pneumoniae DNA (PCR) Not Detected (NotDetected) Coronavirus OC43 (PCR) Not Detected (NotDetected) Coronavirus HKU1 (PCR) Not Detected (NotDetected) Coronavirus 229E (PCR) Not Detected (NotDetected) SARS-CoV-2 (PCR) Not Detected (NotDetected) Coronavirus NL63 (PCR) Not Detected (NotDetected) Human Metapneumovir PCR Not Detected (NotDetected) Influenza Type A (PCR) Not Detected (NotDetected) Influenza Type B (PCR) Not Detected (NotDetected) M. pneumoniae (PCR) Not Detected (NotDetected) Parainfluenza 1 (PCR) Not Detected (NotDetected) Parainfluenza 2 (PCR) Not Detected (NotDetected) Parainfluenza 3 (PCR) Not Detected (NotDetected) Parainfluenza 4 (PCR) Not Detected (NotDetected) RSV (PCR) Not Detected (NotDetected) Entero/Rhino (PCR) Not Detected (NotDetected) Blood Type Antibody Screen Antibody Identification Antibody ID Referred Antibody ID Comment Direct Antiglob Test (Negative) MARY (IgG-AHG) (Negative) MARY, Polyspecific (Negative) MARY C3b, C3d 5 Min (Negative) Crossmatch 03/31/24 Range/Units 08:17 WBC 8.87 (4.8-10.8) K/ul RBC 2.59 L (4.20-5.40) M/uL Hgb 7.9 L (12.0-16.0) g/dl Hct 23.6 L (37.0-47.0) % MCV 91.1 (80.0-100.0) fL MCH 30.5 (25.0-34.0) pg MCHC 33.5 (32.0-36.0) g/dL RDW Std Deviation 49.5 H (36.4-46.3) fL RDW Coeff of Mitch 15.1 H (11.5-14.5) % Plt Count 41 L (130-400) K/uL MPV 11.7 (9.4-12.4) fL Immature Gran % (Auto) 3.5 % Neut % (Auto) 76.2 % Lymph % (Auto) 8.6 % [place] % (Auto) 11.6 % Eos % (Auto) 0.0 % Baso % (Auto) 0.1 % Reticulocyte % (Auto) (0.50-2.00) % Neut # (Auto) 6.76 H (1.40-6.50) K/uL Lymph # (Auto) 0.76 L (1.20-3.40) K/uL [place] # (Auto) 1.03 H (0.11-0.59) K/uL Eos # (Auto) 0.00 (0.00-0.50) K/uL Baso # (Auto) 0.01 (0.00-0.20) K/uL Reticulocyte # (0.020-0.100) 10^6/uL Immature Gran # (Auto) 0.31 H (0.01-0.20) K/uL RBC Morphology Unremarkable Spherocytes Acanthocytes (Spur) Peripher Smr Path Cons Immature Retic Fraction (2.3-15.9) % Retic Hgb Content (28.2-36.6) pg Haptoglobin (43-212) mg/dL PT 25.0 H (9.0-12.0) Seconds INR 2.5 H (0.9-1.1) APTT (21-31) Seconds PTT Ratio Sodium 127 L (136-145) mmol/L Potassium 3.8 (3.5-5.1) mmol/L Chloride 95 L (98-107) mmol/L Carbon Dioxide 22 (21-32) mmol/L Anion Gap 10 (3-11) BUN 19 (6-23) mg/dl Creatinine 1.21 H (0.6-1.2) mg/dl Est Cr Clr Drug Dosing 54.8 ml/min Est GFR ( Amer) 58.3 ml/min Est GFR (Non-Af Amer) 50.3 ml/min BUN/Creatinine Ratio 15.7 (10-20) Glucose 105 H (70-99(Fasting)) mg/dl POC Glucose (70-99) mg/dl Estimat Average Glucose mg/dl Hemoglobin A1c (4.5-5.6) % Lactate (0.4-2.0) mmol/L Calcium 7.6 L (8.6-10.3) mg/dl Ionized Calcium (1.12-1.32) mmol/L Phosphorus (2.5-4.9) mg/dl Magnesium 1.7 (1.7-2.4) mg/dl Iron (35-150) mcg/dl TIBC (250-450) mcg/dl Unsaturated IBC (155-355) mcg/dl Transferrin % Sat (15-50) % Ferritin (8-388) ng/ml Total Bilirubin 1.5 H (0.2-1.0) mg/dl Direct Bilirubin (0-0.2) mg/dl AST 199 H (13-39) U/L ALT 118 H (7-52) U/L Alkaline Phosphatase 179 H (34-104) U/L Lactate Dehydrogenase (86-244) U/L Troponin I High Sens 64.7 H* (0-14) pg/ml Total Protein 6.9 (6.0-8.3) gm/dl Albumin 2.6 L (3.4-5.0) gm/dl Globulin 4.3 H (2.5-4.0) gm/dl Albumin/Globulin Ratio 0.6 L (0.9-2) Vitamin B12 (180-914) pg/ml Folate (>5.38) ng/ml Procalcitonin 10.90 H (0-0.5) ng/ml TSH (0.300-4.500) uIu/ml Free T4 (0.61-1.60) ng/dl Urine Color Urine Appearance (Clear) Urine pH (4.5-7.5) Ur Specific [place] (1.000-1.030) Urine Protein (Negative) Urine Glucose (UA) (Negative) Urine Ketones (Negative) Urine Blood (Negative) Urine Nitrite (Negative) Urine Bilirubin (Negative) Urine Urobilinogen (Negative) Ur Leukocyte Esterase (Negative) Urine WBC (Auto) (0-5) /hpf Urine RBC (Auto) (0-2) /hpf U Hyaline Cast (Auto) (0-2) /lpf U Epithel Cells (Auto) (0-2) /hpf Urine Bacteria (Auto) (None Seen) Stool Occult Bld Scrn (Negative) Stl C. cayetanensis PCR (NotDetected) Stool Rotavirus A PCR (NotDetected) Stl Adenov F 40/41 PCR (NotDetected) Stool Astrovirus (PCR) (NotDetected) Stool Campylobacter PCR (NotDetected) Stool Cryptosporidium PCR (NotDetected) Stl E.coli Shiga Tox PCR (NotDetected) Stl Enterotoxigenic E PCR (NotDetected) Stool EPEC (PCR) (NotDetected) Stool EAEC (PCR) (NotDetected) Stl E. histolytica PCR (NotDetected) Stool Giardia Lamblia PCR (NotDetected) Stool Salmonella PCR (NotDetected) Stool Sapovirus (PCR) (NotDetected) Stl P. shigelloides PCR (NotDetected) Stl Shigella/EIEC PCR (NotDetected) St Y.enterocolitica PCR (NotDetected) Stool Vibrio (PCR) (NotDetected) Stl Vibrio cholerae PCR (NotDetected) Stl Norovirus GI/GII PCR (NotDetected) Adenovirus (PCR) (NotDetected) Anaplasma Smear A. phagocytophilum DNA Babesia Smear Babesia microti DNA PCR B. pertussis DNA (PCR) (NotDetected) B.parapertussis DNA PCR (NotDetected) Lyme Disease Screen (Negative) C. pneumoniae DNA (PCR) (NotDetected) Coronavirus OC43 (PCR) (NotDetected) Coronavirus HKU1 (PCR) (NotDetected) Coronavirus 229E (PCR) (NotDetected) SARS-CoV-2 (PCR) (NotDetected) Coronavirus NL63 (PCR) (NotDetected) Human Metapneumovir PCR (NotDetected) Influenza Type A (PCR) (NotDetected) Influenza Type B (PCR) (NotDetected) M. pneumoniae (PCR) (NotDetected) Parainfluenza 1 (PCR) (NotDetected) Parainfluenza 2 (PCR) (NotDetected) Parainfluenza 3 (PCR) (NotDetected) Parainfluenza 4 (PCR) (NotDetected) RSV (PCR) (NotDetected) Entero/Rhino (PCR) (NotDetected) Blood Type Antibody Screen Antibody Identification Antibody ID Referred Antibody ID Comment Direct Antiglob Test (Negative) MARY (IgG-AHG) (Negative) MARY, Polyspecific (Negative) MARY C3b, C3d 5 Min (Negative) Crossmatch Diagnostic Findings Chest X-Ray 03/31/24 08:23 XR chest 1V portable CLINICAL HISTORY: weakness COMPARISON STUDY: Chest radiograph December 14, 2023. Chest CT April 30, 2022. FINDINGS: Elevation of the left hemidiaphragm has increased. Linear left basilar opacity favors atelectasis. Chronic interstitial thickening is unchanged. Cardiomegaly is unchanged. There is no pneumothorax or pleural effusion. IMPRESSION: 1. No acute cardiopulmonary findings. 2. Increase in elevation of the left hemidiaphragm. ACT 112: Negative or not required by law. Electronically signed by: Laith Gold M.D. 03/31/2024 8:35 AM Abdomen/Pelvis CT 03/31/24 08:37 CT OF THE ABDOMEN AND PELVIS WITH CONTRAST CLINICAL HISTORY: pain, fever, loose stool COMPARISON STUDY: CT of the abdomen and pelvis March 29, 2023. Left hip ultrasound November 03, 2023. TECHNIQUE: Following IV administration of 94 mL of Optiray, axial images of the abdomen and pelvis were obtained from the lung bases to the proximal femurs. Images were reviewed in the axial, sagittal, and coronal planes. IV contrast was administered without complication. Automated exposure control was utilized for the study. A dose lowering technique was utilized adhering to the principles of ALARA. CT DOSE: 1226.12 mGy.cm FINDINGS: Elevation of the left hemidiaphragm is noted. An irregular 1.7 cm right lower lobe airspace opacity on image 33 of 373 is noted. There are mild groundglass opacities within the lower lobes. No pneumatosis, free air or portal venous gas is present. Hepatosplenomegaly has increased since CT of March 29, 2023. The spleen is markedly enlarged. The liver is moderately enlarged. Several ill-defined hypodense foci within the liver have developed since prior CT. The largest is a 3.5 cm focus within the right hepatic lobe on image 111. A 7.6 x 3.8 cm hypodense focus within the spleen represents a splenic infarct. There is a smaller additional splenic infarct. There is no perisplenic fluid. There is mild stranding within the raf hepatis. No biliary ductal dilatation is identified status post cholecystectomy. Adrenal glands, kidneys and pancreas are normal. There is no evidence for a bowel obstruction. Sigmoid diverticulosis is present. No evidence for acute diverticulitis. Abdominal and pelvic lymphadenopathy has developed since prior CT T. A raf hepatis lymph node on image 135 measures 2.1 x 2.3 cm. Left para-aortic lymph node on image 154 measures 1.8 x 1.5 cm. Left external iliac lymph node on image 270 measures 1.9 x 1.3 cm. Additional left external iliac lymph node on image 310 measures 2.9 x 1.2 cm. IMPRESSION: 1. Interval progression of hepatosplenomegaly since CT of March 29, 2023 and a new 7.6 x 3.8 cm splenic infarct. Development of abdominal and pelvic lymphadenopathy, as described above. Overall, these findings raise the possibility of a lymphoproliferative disorder. Oncology consultation is recommended. 2. Multiple new ill-defined hypodense foci within the liver. These are entirely nonspecific although could be seen in the setting of lymphoma. Liver protocol MRI may be of benefit in further characterization. 3. No bowel obstruction. No bowel wall thickening. 4. 1.7 cm irregular right lower lobe airspace opacity and groundglass opacities within the lower lobes. The findings favor an infectious process. However, a follow-up chest CT in one month to ensure resolution. ACT 112: Positive. There are findings on this exam that require communication between the performing entity and the patient following Patient Test Result Information Act ([place] Act 112) guidelines. Electronically signed by: Laith Gold M.D. 03/31/2024 9:56 AM PG Care Time/CCT Total # of Minutes Spent Total Time Spent with Patient: Total time spent is greater than 50% in coordination of care (as documented) at patient's floor/unit and/or counseling patient: I spent 130 minutes overall addressing this case: 20 min in medical data review/discussion with referring provider(s) and/or preparation for the visit 15 min in direct interaction with the patient/exam 60 min in Advance Care Planning/Goals of Care discussions as detailed above in note (must be >16min) 15 min in subsequent review and synthesis of assessment and plan 20 min communicating with other providers regarding the patient's case: Prolonged Care Time Prolonged Care Time: Yes Advanced Care Planning 73015 Advanced Care Planning 30 Min 99873 Advanced Care Planning Additional 30 [place] [address] IN/OBS CONSULT LVL 5,80M (25 - SIGNIFICANT, SEPARATELY IDENTIFIABLE ) Patient Type New Medical Decision Making High Complexity Diagnoses Weakness generalized R53.1 Advanced care planning/counseling discussion Z71.89 Palliative care by specialist Z51.5 Additional Codes Advanced Care Planning - 37177 Advanced Care Planning 30 Min: 98100 Advanced Care Planning 30 Min ([id number]) Advanced Care Planning - 33432 Advanced Care Planning Additional 30 Min: 92498 A dvanced Care Planning Additional 30 Min ([id number]) Prolonged Care Time - Prolonged Care Time: Yes ([id number])
--- NOTE | 2024-04-03 15:32 | Hospitalist Progress Note ---
Date of Service April 03, 2024 Assessment & Plan (1) Splenic infarct: (2) Lymphoproliferative disease: (3) Pneumonia: (4) Hepatic lesion: (5) Transaminitis: Plan 54yoF with PMHx significant for ITP, antiphospholipid syndrome/DVT currently on Lovenox, subdural hematoma, cholecystectomy, diabetes mellitus, hypothyroidism, and GERD presenting with three weeks of generalized malaise and abdominal pain with N/V and nonbloody diarrhea. She is being managed for the following: Acute on chronic anemia, unclear etiology Blood Antibody, unidentifiable Lymphoproliferative disorder OP records - 03/04 CBC: /36.9, plt 60k, wbc 5. Hgb on admission, 7.9. Anemia labs: B12 985, Folate 12.72, FE 70, TIBC 88, Ferritin 922.7, t bili 0.8 Concern for possible Lymphoma per admitting CTAP: 1. Interval progression of hepatosplenomegaly since CT of March 29, 2023 and a new 7.6 x 3.8 cm splenic infarct. Development of abdominal and pelvic lymphadenopathy. Overall, these findings raise the possibility of a lymphoproliferative disorder. Oncology consultation is recommended. 2. Multiple new ill-defined hypodense foci within the liver. These are entirely nonspecific although could be seen in the setting of lymphoma. Liver protocol MRI may be of benefit in further characterization. Oncology evaluated, recommended biopsy of one of the LNs to establish the cause for the lymphoproliferative disease. Patient adamantly refused MRI , offered IV medications for anxiety; declined suggestion of sedation. Pt doesn't want biopsy. Palliative evaluated, pt wants SNF (then LTC) with plan to transition to hospice and comfort care depending on progress, doesn't want biopsy or further cancer w/u, she doesn't want to prolong dying. FOBT positive, denies bloody stool, BUN normal ----c/w po pantoprazole. If further drop in Hb, will consult GI to assess need for scope c/f bleed Transfuse <7, trend H/H daily or as needed. -Low frequency Antibodies +, per Nomi Dominique of blood bank [facility] didn't find a low freq IgG Ab on any of their cell lines so they don't think it was clinically significant. Hematology on board, appreciate recs. Hepatosplenomegaly, progressing Hepatic hypodense Lesions, new Transaminitis N/V/D/Abdominal Pain - n, v and appetite improving, still w/ loose stool. psyllium fiber and cholestyramine. 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 see above. Appetite improving per RN, antiemetics prn Continue to monitor Chronic idiopathic thrombocytopenia Hx of ITP Follows Dr. Ralph Barron -trialed on Rituxan, c/b allergic reaction. Completed prolonged steroid taper Antiphospholipid antibody syndrome: on chronic anticoagulation Recent Subdural Hematoma 11/2023 Splenic Infarct: per admitting CTAP - see above. INR 2.5 on admission, transitioned to Heparin drip given history of subdural, but need for AC given propensity for thrombosis On lovenox 50mg BID at home Anemia work up as above Hem/Onc on board: transfuse platelet if less than 10,000 or if the patient is actively bleeding. Hold anticoagulation as long as platelet count is less than 50,000 given the risks of bleeding. If the patient is symptomatic from the splenic infarct then consider low-dose heparin and titrate to lower level of anti-Xa at any level. Pneumonia, questionable aspiration Sepsis, POA CT abdomen/pelvis noting 1.7 cm RLL airspace opacity and groundglass opacities within the lower lobes, favoring an infectious process. Tachycardic, tachypneic and hypotensive on admission with pulmonary infectious source. Procal elevated, lactate wnl. Blood Cx x2 -NG48H Pt denies aspiration and has Zosyn allergy c/w Cefepime 04/01 and Flagyl 03/31, azithromycin 04/01 for atypical coverage Speech evaled, appreciate recs. TRISHA: resolved Demand ischemia: Troponin mildly elevated at presentation, EKG with sinus tachycardia, echo with EF of 60 to 65%, no wall motion abnormality. Likely demand ischemia in the setting of acute illness. Hypocalcemia : Monitor and replete. Hypovolemic Hyponatremia: Sodium of 127 at presentation. Likely in the setting of dehydration. Patient with chronic nausea and vomiting. s/p ivf. Improved. Back lesion: Pt with raised firm lesion on her upper back concerning for a skin carcinoma. OP f/u w/ derm on dc. DMII: A1c 4.3. Reportedly diet controlled Severe protein calorie malnutrition: 64 lb weight loss Diet:DMII DVT prophylaxis: SCDs, hold home lovenox, scds re: low platelets increased risk of bleeding. Dispo: PCU/tele. CM to assist w/ DC plan. Code; dnr/dni Admission and Anticipated Discharge Date Admission Date: March 31, 2024 Subjective Patient was sitting up in bed, on room air, NAD. Patient reports improving nausea or vomiting, still with multiple loose stools, appetite better today. per RN no new acute events overnight. Patient denies headache or dizziness Or chest pain. Pt's brother Aakash was at the bedside, updated on the pt's status. We discussed about honoring the wishes of the patient. Patient is pretty much determined that she would not want any MRI or cancer workup or biopsy. Patient's brother Nba agreed to honor patient's wishes. Physical Exam Physical Exam: General: Alert, oriented, appears ill/sick/frail. Skin: bruising on skin noted, raised circular firm lesion on back Psych: Appropriate mood and affect Neuro: No gross deficits while sitting in bed HEENT: NC/AT CV: RRR Resp: Breath sounds clear bilaterally, no increased effort of breathing. Abdomen: Soft, tender epigastrium Extremities: trace edema in lower extremities bilaterally. Results & Data Results & Data Vital Signs (Past 12 Hours) Vital Signs Temp Pulse Pulse Resp BP Pulse Ox O2 Del Method 04/03/24 15:00 87 04/03/24 14:09 36.8 C 82 17 113/75 98 Room Air 04/03/24 10:29 36.6 C 78 17 110/72 97 Room Air 04/03/24 07:36 37.0 C 87 17 99/65 L 96 Room Air 04/03/24 07:06 64 04/03/24 07:00 84
[2024-04-03] MEDS: PANTOprazole 40 MG TAB PO SCH (19:50)
[2024-04-04 00:13] LABS: Babesia microti DNA Not Detected (Not Detected)
[2024-04-04] MEDS: metroNIDAZOLE 500 MG/100 ML BAG IV SCH (04:28)
[2024-04-04 07:32] LABS: Hematocrit (blood only) 25.9 % (37.0-47.0); Hemoglobin 8.4 g/dl (12.0-16.0); Mean Corpuscular Hemoglobin 30.2 pg (25.0-34.0); Mean Corpuscular Hgb Conc 32.4 g/dL (32.0-36.0); Mean Corpuscular Volume 93.2 fL (80.0-100.0); Mean Platelet Volume 12.7 fL (9.4-12.4); Platelet Count 29 K/uL (130-400); RDW Coefficient of Variation 16.7 % (11.5-14.5); RDW Standard Deviation 55.5 fL (36.4-46.3); Red Blood Count 2.78 M/uL (4.20-5.40); White Blood Count 7.49 K/ul (4.8-10.8)
[2024-04-04 07:35] LABS: Albumin Globulin Ratio 0.6 (0.9-2); Albumin Level 2.3 gm/dl (3.4-5.0); Bilirubin,Total 0.9 mg/dl (0.2-1.0); Calcium 7.8 mg/dl (8.6-10.3); Creatinine Clr Calc Pharmacy 60.8 ml/min; Est GFR (African American) 66.2 ml/min; Est GFR (Non-African American) 57.1 ml/min; Globulin 3.8 gm/dl (2.5-4.0); Magnesium 1.8 mg/dl (1.7-2.4); Phosphorus 3.3 mg/dl (2.5-4.9); Total Protein 6.1 gm/dl (6.0-8.3)
[2024-04-04 07:52] LABS: Platelet Estimate Decreased (Normal)
--- NOTE | 2024-04-04 17:04 | Hospitalist Progress Note ---
Date of Service April 04, 2024 Assessment & Plan (1) Splenic infarct: (2) Lymphoproliferative disease: (3) Pneumonia: (4) Hepatic lesion: (5) Transaminitis: Plan 54yoF with PMHx significant for ITP, antiphospholipid syndrome/DVT currently on Lovenox, subdural hematoma, cholecystectomy, diabetes mellitus, hypothyroidism, and GERD presenting with three weeks of generalized malaise and abdominal pain with N/V and nonbloody diarrhea. She is being managed for the following: Acute on chronic anemia, unclear etiology Blood Antibody, unidentifiable Lymphoproliferative disorder OP records - 03/04 CBC: 36.9, plt 60k, wbc 5. Hgb on admission, 7.9. Anemia labs: B12 985, Folate 12.72, FE 70, TIBC 88, Ferritin 922.7, t bili 0.8 Concern for possible Lymphoma per admitting CTAP: 1. Interval progression of hepatosplenomegaly since CT of March 29, 2023 and a new 7.6 x 3.8 cm splenic infarct. Development of abdominal and pelvic lymphadenopathy. Overall, these findings raise the possibility of a lymphoproliferative disorder. Oncology consultation is recommended. 2. Multiple new ill-defined hypodense foci within the liver. These are entirely nonspecific although could be seen in the setting of lymphoma. Liver protocol MRI may be of benefit in further characterization. Oncology evaluated, recommended biopsy of one of the LNs to establish the cause for the lymphoproliferative disease. Patient adamantly refused MRI , offered IV medications for anxiety; declined suggestion of sedation. Pt doesn't want biopsy. Palliative evaluated, pt wants SNF (then LTC) with plan to transition to hospice and comfort care depending on progress, doesn't want biopsy or further cancer w/u, she doesn't want to prolong dying. FOBT positive, denies bloody stool, BUN normal ----c/w po pantoprazole. If further drop in Hb, will consult GI to assess need for scope c/f bleed Transfuse <7, trend H/H daily or as needed. -Low frequency Antibodies +, per Nomi Dominique of blood bank [facility] didn't find a low freq IgG Ab on any of their cell lines so they don't think it was clinically significant. Hematology on board, appreciate recs. Hepatosplenomegaly, progressing Hepatic hypodense Lesions, new Transaminitis N/V/D/Abdominal Pain - n, v and appetite improving, still w/ loose stool. psyllium fiber and cholestyramine. 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 see above. Appetite improving per RN, antiemetics prn Continue to monitor Chronic idiopathic thrombocytopenia Hx of ITP Follows Dr. Ralph Barron -trialed on Rituxan, c/b allergic reaction. Completed prolonged steroid taper Antiphospholipid antibody syndrome: on chronic anticoagulation Recent Subdural Hematoma 11/2023 Splenic Infarct: per admitting CTAP - see above. INR 2.5 on admission, transitioned to Heparin drip given history of subdural, but need for AC given propensity for thrombosis On lovenox 50mg BID at home Anemia work up as above Hem/Onc on board: transfuse platelet if less than 10,000 or if the patient is actively bleeding. Hold anticoagulation as long as platelet count is less than 50,000 given the risks of bleeding. If the patient is symptomatic from the splenic infarct then consider low-dose heparin and titrate to lower level of anti-Xa at any level. Pneumonia, questionable aspiration Sepsis, POA CT abdomen/pelvis noting 1.7 cm RLL airspace opacity and groundglass opacities within the lower lobes, favoring an infectious process. Tachycardic, tachypneic and hypotensive on admission with pulmonary infectious source. Procal elevated, lactate wnl. Blood Cx x2 -NG48H Pt denies aspiration and has Zosyn allergy c/w Cefepime 04/01 and Flagyl 03/31, azithromycin 04/01 for atypical coverage - pt declined flagyl and azithro, pt has been counselled, still denied. Speech evaled, appreciate recs. TRISHA: resolved Demand ischemia: Troponin mildly elevated at presentation, EKG with sinus tachycardia, echo with EF of 60 to 65%, no wall motion abnormality. Likely demand ischemia in the setting of acute illness. Hypocalcemia : Monitor and replete. Hypovolemic Hyponatremia: Sodium of 127 at presentation. Likely in the setting of dehydration. Patient with chronic nausea and vomiting. s/p ivf. Improved. Back lesion: Pt with raised firm lesion on her upper back concerning for a skin carcinoma. OP f/u w/ derm on dc. DMII: A1c 4.3. Reportedly diet controlled Severe protein calorie malnutrition: 64 lb weight loss Diet:DMII DVT prophylaxis: SCDs, hold home lovenox, scds re: low platelets increased risk of bleeding. Dispo: PCU/tele. CM to assist w/ DC plan. Code; dnr/dni Admission and Anticipated Discharge Date Admission Date: March 31, 2024 Subjective Patient was sitting up in bed, on room air, NAD. Patient reports improving nausea or vomiting, improving stool consistency, appetite still low. per RN no new acute events overnight. Patient denies headache or dizziness Or chest pain. Pt's parents were at the bedside, updated on the pt's status. We discussed about honoring the wishes of the patient. Patient is pretty much determined that she would not want any MRI or cancer workup or biopsy. Patient's parents agreed to honor patient's wishes. Pt and her parents are aware that she can deteriorate rapidly leading to fatal outcome and they acknowledge the fact. Physical Exam Physical Exam: General: Alert, oriented, appears ill/sick/frail. Skin: bruising on skin noted, raised circular firm lesion on back Psych: Appropriate mood and affect Neuro: No gross deficits while sitting in bed HEENT: NC/AT CV: RRR Resp: Breath sounds clear bilaterally, no increased effort of breathing. Abdomen: Soft, tender epigastrium Extremities: trace edema in lower extremities bilaterally. Results & Data Results & Data Vital Signs (Past 12 Hours) Vital Signs Temp Pulse Pulse Resp BP Pulse Ox O2 Del Method 04/04/24 16:00 37.1 C 82 16 109/71 96 Room Air 04/04/24 15:08 83 04/04/24 11:40 36.6 C 87 16 100/66 96 Room Air 04/04/24 08:00 37.1 C 91 H 18 105/64 98 Room Air 04/04/24 07:52 84
[2024-04-04 20:31] LABS: Hematocrit (blood only) 26.1 % (37.0-47.0); Hemoglobin 8.6 g/dl (12.0-16.0); Mean Corpuscular Hemoglobin 30.2 pg (25.0-34.0); Mean Corpuscular Volume 91.6 fL (80.0-100.0); Mean Platelet Volume 12.9 fL (9.4-12.4); Platelet Count 31 K/uL (130-400); RDW Coefficient of Variation 16.5 % (11.5-14.5); RDW Standard Deviation 54.2 fL (36.4-46.3); Red Blood Count 2.85 M/uL (4.20-5.40); White Blood Count 7.03 K/ul (4.8-10.8)
--- NOTE | 2024-04-04 21:14 | Communication Note ---
Date of Service: April 04, 2024
[2024-04-04] MEDS: LACTATED RINGER'S 1,000 ML IV ONE (22:15)
[2024-04-04] MEDS: MAGNESIUM SULFATE / D5W 1 GM/100 ML BAG IV ONE (22:16)
[2024-04-04 22:28] LABS: Basophils # (auto) 0.01 K/uL (0.00-0.20); Basophils % (auto) 0.1 %; Echinocytes 2+; Immature Granulocytes # (auto) 0.36 K/uL (0.01-0.20); Immature Granulocytes % (auto) 5.1 %; Lymphocytes # (auto) 0.76 K/uL (1.20-3.40); Lymphocytes % (auto) 10.8 %; Monocytes # (auto) 0.67 K/uL (0.11-0.59); Monocytes % (auto) 9.5 %; Neutrophils # (auto) 5.23 K/uL (1.40-6.50); Neutrophils % (auto) 74.5 %; Polychromasia 1+
[2024-04-05 06:31] LABS: Hematocrit (blood only) 24.5 % (37.0-47.0); Hemoglobin 7.9 g/dl (12.0-16.0); Mean Corpuscular Hemoglobin 29.9 pg (25.0-34.0); Mean Corpuscular Hgb Conc 32.2 g/dL (32.0-36.0); Mean Corpuscular Volume 92.8 fL (80.0-100.0); Mean Platelet Volume 10.8 fL (9.4-12.4); Platelet Count 28 K/uL (130-400); RDW Coefficient of Variation 16.6 % (11.5-14.5); RDW Standard Deviation 54.6 fL (36.4-46.3); Red Blood Count 2.64 M/uL (4.20-5.40)
[2024-04-05 06:48] LABS: Albumin Globulin Ratio 0.6 (0.9-2); Albumin Level 2.3 gm/dl (3.4-5.0); BUN Creatinine Ratio 13.9 (10-20); Bilirubin,Total 0.7 mg/dl (0.2-1.0); Creatinine Clr Calc Pharmacy 63.9 ml/min; Est GFR (African American) 66.9 ml/min; Est GFR (Non-African American) 57.7 ml/min; Globulin 3.8 gm/dl (2.5-4.0); Phosphorus 2.9 mg/dl (2.5-4.9); Potassium 3.7 mmol/L (3.5-5.1); Total Protein 6.1 gm/dl (6.0-8.3)
[2024-04-05] MEDS: POTASSIUM CHLORIDE CRTAB 20 MEQ TABCR PO STA (08:53)
[2024-04-05] MEDS ORDERED: DOCUSATE SODIUM 100 MG CAP PO PRN (16:57)
--- NOTE | 2024-04-05 17:03 | Hospitalist Progress Note ---
Date of Service April 05, 2024 Assessment & Plan (1) Splenic infarct: (2) Lymphoproliferative disease: (3) Pneumonia: (4) Hepatic lesion: (5) Transaminitis: Plan 54yoF with PMHx significant for ITP, antiphospholipid syndrome/DVT currently on Lovenox, subdural hematoma, cholecystectomy, diabetes mellitus, hypothyroidism, and GERD presenting with three weeks of generalized malaise and abdominal pain with N/V and nonbloody diarrhea. She is being managed for the following: Acute on chronic anemia, unclear etiology Blood Antibody, unidentifiable Lymphoproliferative disorder OP records - 03/04 CBC: 36.9, plt 60k, wbc 5. Hgb on admission, 7.9. Anemia labs: B12 985, Folate 12.72, FE 70, TIBC 88, Ferritin 922.7, t bili 0.8 Concern for possible Lymphoma per admitting CTAP: 1. Interval progression of hepatosplenomegaly since CT of March 29, 2023 and a new 7.6 x 3.8 cm splenic infarct. Development of abdominal and pelvic lymphadenopathy. Overall, these findings raise the possibility of a lymphoproliferative disorder. Oncology consultation is recommended. 2. Multiple new ill-defined hypodense foci within the liver. These are entirely nonspecific although could be seen in the setting of lymphoma. Liver protocol MRI may be of benefit in further characterization. Oncology evaluated, recommended biopsy of one of the LNs to establish the cause for the lymphoproliferative disease. Patient adamantly refused MRI , offered IV medications for anxiety; declined suggestion of sedation. Pt doesn't want biopsy. Palliative evaluated, pt wants SNF (then LTC) with plan to transition to hospice and comfort care depending on progress, doesn't want biopsy or further cancer w/u, she doesn't want to prolong dying. Pt also doesn't want any EGD or Colon scope even if they are needed. FOBT positive, denies bloody stool, BUN normal ----c/w po pantoprazole. If further drop in Hb, will consult GI to assess need for scope c/f bleed Transfuse <7, trend H/H daily or as needed. -Low frequency Antibodies +, per Nomi Dominique of blood bank [facility] didn't find a low freq IgG Ab on any of their cell lines so they don't think it was clinically significant. Hematology on board, appreciate recs. Hepatosplenomegaly, progressing Hepatic hypodense Lesions, new Transaminitis N/V/D/Abdominal Pain - n, v and appetite improving, still w/ loose stool. psyllium fiber and cholestyramine. 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 see above. Appetite improving per RN, antiemetics prn Continue to monitor Chronic idiopathic thrombocytopenia Hx of ITP Follows Dr. Ralph Barron -trialed on Rituxan, c/b allergic reaction. Completed prolonged steroid taper Antiphospholipid antibody syndrome: on chronic anticoagulation Recent Subdural Hematoma 11/2023 Splenic Infarct: per admitting CTAP - see above. Pt reports pain under control. INR 2.5 on admission, transitioned to Heparin drip given history of subdural, but need for AC given propensity for thrombosis On lovenox 50mg BID at home Anemia work up as above Hem/Onc on board: transfuse platelet if less than 10,000 or if the patient is actively bleeding. Hold anticoagulation as long as platelet count is less than 50,000 given the risks of bleeding. If the patient is symptomatic from the splenic infarct then consider low-dose heparin and titrate to lower level of ant i-Xa at any level. Pneumonia, questionable aspiration Sepsis, POA CT abdomen/pelvis noting 1.7 cm RLL airspace opacity and groundglass opacities within the lower lobes, favoring an infectious process. Tachycardic, tachypneic and hypotensive on admission with pulmonary infectious source. Procal elevated, lactate wnl. Blood Cx x2 -NG48H Pt denies aspiration and has Zosyn allergy c/w Cefepime 04/01 and Flagyl 03/31, azithromycin 04/01 for atypical coverage - pt declining antibiotics, pt has been counselled, still denied. Speech evaled, appreciate recs. TRISHA: resolved Demand ischemia: Troponin mildly elevated at presentation, EKG with sinus tachycardia, echo with EF of 60 to 65%, no wall motion abnormality. Likely demand ischemia in the setting of acute illness. Hypocalcemia : Monitor and replete. Hypovolemic Hyponatremia: Sodium of 127 at presentation. Likely in the setting of dehydration. Patient with chronic nausea and vomiting. s/p ivf. Improved. Back lesion: Pt with raised firm lesion on her upper back concerning for a skin carcinoma. OP f/u w/ derm on dc. DMII: A1c 4.3. Reportedly diet controlled Severe protein calorie malnutrition: 64 lb weight loss Diet:DMII DVT prophylaxis: SCDs, hold home lovenox, scds re: low platelets increased risk of bleeding. Dispo: PCU/tele. CM to assist w/ DC plan. Code; dnr/dni Admission and Anticipated Discharge Date Admission Date: March 31, 2024 Subjective Patient was sitting up in bed, on room air, NAD. Patient reports improving nausea or vomiting. Reports somewhat better appetite. Pt now wants colace to move bowel, dc psyllium and questran. colace prn ordered. per RN no new acute events overnight. Patient denies headache or dizziness Or chest pain. Detailed discussion w/ patient held, explained the need for antibiotic to treat pneumonia which is treatable condition. Pt continues to deny. she is AOx4, understands the gravity of situation. Pt also denies any possibility of EGD or colon scope. She is ok w/ blood transfusion as of now. Physical Exam Physical Exam: General: Alert, oriented, appears ill/sick/frail. Skin: bruising on skin noted, raised circular firm lesion on back Psych: Appropriate mood and affect Neuro: No gross deficits while sitting in bed HEENT: NC/AT CV: RRR Resp: Breath sounds clear bilaterally, no increased effort of breathing. Abdomen: Soft, tender epigastrium Extremities: trace edema in lower extremities bilaterally. Results & Data Results & Data Vital Signs (Past 12 Hours) Vital Signs Temp Pulse Pulse Resp BP Pulse Ox O2 Del Method 04/05/24 15:16 37.2 C 79 18 128/78 97 Room Air 04/05/24 11:42 37.2 C 83 18 101/56 L 95 Room Air 04/05/24 08:00 82 04/05/24 08:00 Room Air 04/05/24 07:20 37.0 C 76 18 115/73 97 Room Air
[2024-04-06 06:28] LABS: Hematocrit (blood only) 24.7 % (37.0-47.0); Mean Corpuscular Hemoglobin 30.2 pg (25.0-34.0); Mean Corpuscular Hgb Conc 32.4 g/dL (32.0-36.0); Mean Corpuscular Volume 93.2 fL (80.0-100.0); Mean Platelet Volume 12.6 fL (9.4-12.4); Platelet Count 31 K/uL (130-400); RDW Coefficient of Variation 16.8 % (11.5-14.5); RDW Standard Deviation 55.2 fL (36.4-46.3); Red Blood Count 2.65 M/uL (4.20-5.40); White Blood Count 6.95 K/ul (4.8-10.8)
[2024-04-06 06:53] LABS: Albumin Globulin Ratio 0.6 (0.9-2); Albumin Level 2.4 gm/dl (3.4-5.0); Bilirubin,Total 0.7 mg/dl (0.2-1.0); Calcium 8.1 mg/dl (8.6-10.3); Creatinine Clr Calc Pharmacy 59.6 ml/min; Est GFR (African American) 62.7 ml/min; Est GFR (Non-African American) 54.1 ml/min; Globulin 3.9 gm/dl (2.5-4.0); Magnesium 1.7 mg/dl (1.7-2.4); Phosphorus 2.7 mg/dl (2.5-4.9); Potassium 3.8 mmol/L (3.5-5.1); Total Protein 6.3 gm/dl (6.0-8.3)
--- NOTE | 2024-04-06 14:49 | Hospitalist Progress Note ---
Date of Service April 06, 2024 Assessment & Plan (1) Splenic infarct: (2) Lymphoproliferative disease: (3) Pneumonia: (4) Hepatic lesion: (5) Transaminitis: Plan 54yoF with PMHx significant for ITP, antiphospholipid syndrome/DVT currently on Lovenox, subdural hematoma, cholecystectomy, diabetes mellitus, hypothyroidism, and GERD presenting with three weeks of generalized malaise and abdominal pain with N/V and nonbloody diarrhea. She is being managed for the following: Acute on chronic anemia, unclear etiology Blood Antibody, unidentifiable Lymphoproliferative disorder OP records - 03/04 CBC: 36.9, plt 60k, wbc 5. Hgb on admission, 7.9. Anemia labs: B12 985, Folate 12.72, FE 70, TIBC 88, Ferritin 922.7, t bili 0.8 Concern for possible Lymphoma per admitting CTAP: 1. Interval progression of hepatosplenomegaly since CT of March 29, 2023 and a new 7.6 x 3.8 cm splenic infarct. Development of abdominal and pelvic lymphadenopathy. Overall, these findings raise the possibility of a lymphoproliferative disorder. Oncology consultation is recommended. 2. Multiple new ill-defined hypodense foci within the liver. These are entirely nonspecific although could be seen in the setting of lymphoma. Liver protocol MRI may be of benefit in further characterization. Oncology evaluated, recommended biopsy of one of the LNs to establish the cause for the lymphoproliferative disease. Patient adamantly refused MRI , offered IV medications for anxiety; declined suggestion of sedation. Pt doesn't want biopsy. Palliative evaluated, pt wants SNF (then LTC) with plan to transition to hospice and comfort care depending on progress, doesn't want biopsy or further cancer w/u, she doesn't want to prolong dying. Pt also doesn't want any EGD or Colon scope even if they are needed. FOBT positive, denies bloody stool, BUN normal ----c/w po pantoprazole. Transfuse <7, trend H/H daily or as needed. -Low frequency Antibodies +, per Nomi Dominique of blood bank [facility] didn't find a low freq IgG Ab on any of their cell lines so they don't think it was clinically significant. Hematology on board, appreciate recs. Hepatosplenomegaly, progressing Hepatic hypodense Lesions, new Transaminitis N/V/D/Abdominal Pain - n, v and appetite improving, still w/ loose stool. psyllium fiber and cholestyramine. 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 see above. Appetite improving per RN, antiemetics prn Continue to monitor Chronic idiopathic thrombocytopenia Hx of ITP Follows Dr. Ralph Barron -trialed on Rituxan, c/b allergic reaction. Completed prolonged steroid taper Antiphospholipid antibody syndrome: on chronic anticoagulation Recent Subdural Hematoma 11/2023 Splenic Infarct: per admitting CTAP - see above. Pt reports pain under control. INR 2.5 on admission, transitioned to Heparin drip given history of subdural, but need for AC given propensity for thrombosis On lovenox 50mg BID at home Anemia work up as above Hem/Onc on board: transfuse platelet if less than 10,000 or if the patient is actively bleeding. Hold anticoagulation as long as platelet count is less than 50,000 given the risks of bleeding. If the patient is symptomatic from the splenic infarct then consider low-dose heparin and titrate to lower level of anti-Xa at any level. Pneumonia, questionable aspiration Sepsis, POA CT abdomen/pelvis noting 1.7 cm RLL airspace opacity and groundglass opacities within the lower lobes, favoring an infectious process. Tachycardic, tachypneic and hypotensive on admission with pulmonary infectious source. Procal elevated, lactate wnl. Blood Cx x2 -NG48H Pt denies aspiration and has Zosyn allergy c/w Cefepime 04/01 and Flagyl 03/31, azithromycin 04/01 for atypical coverage - pt declining antibiotics, pt has been counselled, still denied. Speech evaled, appreciate recs. TRISHA: resolved Demand ischemia: Troponin mildly elevated at presentation, EKG with sinus tachycardia, echo with EF of 60 to 65%, no wall motion abnormality. Likely demand ischemia in the setting of acute illness. Hypocalcemia : Monitor and replete. Hypovolemic Hyponatremia: Sodium of 127 at presentation. Likely in the setting of dehydration. Patient with chronic nausea and vomiting. s/p ivf. Improved. Back lesion: Pt with raised firm lesion on her upper back concerning for a skin carcinoma. OP f/u w/ derm on dc. DMII: A1c 4.3. Reportedly diet controlled Severe protein calorie malnutrition: 64 lb weight loss Diet:DMII DVT prophylaxis: SCDs, hold home lovenox, scds re: low platelets increased risk of bleeding. Dispo: PCU/tele. CM to assist w/ DC plan. Code; dnr/dni Admission and Anticipated Discharge Date Admission Date: March 31, 2024 Subjective Patient was sitting up in bed, on room air, NAD. Patient reports improving nausea or vomiting. Reports somewhat better appetite. Pt moving bowel ok. per RN no new acute events overnight. Patient denies headache or dizziness Or chest pain. Detailed discussion w/ patient held, explained the need for antibiotic to treat pneumonia which is treatable condition. Pt continues to deny. she is AOx4, understands the gravity of situation. Pt also denies any possibility of EGD or colon scope. She is ok w/ blood transfusion as of now. She requested she will take only cefepime no azithro or metron. She understands this is not complete treatment and since she has been refusing the antibiotics since few days, i will dc the antibiotics she requested me to not give her. Physical Exam Physical Exam: General: Alert, oriented, appears ill/sick/frail. Skin: bruising on skin noted, raised circular firm lesion on back Psych: Appropriate mood and affect Neuro: No gross deficits while sitting in bed HEENT: NC/AT CV: RRR Resp: Breath sounds clear bilaterally, no increased effort of breathing. Abdomen: Soft, tender epigastrium Extremities: trace edema in lower extremities bilaterally. Results & Data Results & Data Vital Signs (Past 12 Hours) Vital Signs Temp Pulse Resp BP Pulse Ox O2 Del Method 04/06/24 11:25 37.5 C 91 H 17 104/67 96 Room Air 04/06/24 07:15 37.2 C 95 H 18 118/73 95 Room Air 04/06/24 03:07 37.7 C H 91 H 18 102/60 95 Room Air
--- NOTE | 2024-04-07 05:42 | Electrocardiogram Report ---
Test Reason : Blood Pressure : / mmHG Vent. Rate : 085 BPM Atrial Rate : 085 BPM P-R Int : 152 ms QRS Dur : 088 ms QT Int : 380 ms P-R-T Axes : 065 -18 023 degrees QTc Int : 452 ms Normal sinus rhythm Low voltage QRS Cannot rule out Anterior infarct (cited on or before 14-FEB-2024) Abnormal ECG When compared with ECG of 31-MAR-2024 08:07, No significant change was found Confirmed by Asif Kamara ([id number]) on 04/07/2024 5:42:01 AM Referred By: REFERRED SELF Confirmed By:Asif Kamara
[2024-04-07 06:56] LABS: BUN Creatinine Ratio 16.1 (10-20); Calcium 8.2 mg/dl (8.6-10.3); Creatinine Clr Calc Pharmacy 58.2 ml/min; Est GFR (African American) 60.1 ml/min; Est GFR (Non-African American) 51.9 ml/min; Magnesium 1.7 mg/dl (1.7-2.4); Phosphorus 3.5 mg/dl (2.5-4.9); Potassium 4.1 mmol/L (3.5-5.1)
[2024-04-07 07:07] LABS: Hematocrit (blood only) 24.2 % (37.0-47.0); Hemoglobin 7.7 g/dl (12.0-16.0); Mean Corpuscular Hemoglobin 29.3 pg (25.0-34.0); Mean Corpuscular Hgb Conc 31.8 g/dL (32.0-36.0); Mean Platelet Volume 10.4 fL (9.4-12.4); Platelet Count 22 K/uL (130-400); RDW Coefficient of Variation 16.4 % (11.5-14.5); RDW Standard Deviation 52.4 fL (36.4-46.3); Red Blood Count 2.63 M/uL (4.20-5.40); White Blood Count 7.16 K/ul (4.8-10.8)
[2024-04-07 07:10] LABS: Platelet Estimate Decreased (Normal)
--- NOTE | 2024-04-07 12:46 | Communication Note ---
Date of Service: April 07, 2024 Patient declined blood product transfusion today. She declined any changes in antibiotics and ok w/ cefepime for now. Detailed discussion regarding going into comfort care measures was held including stopping all the active treatments/blood draws/telemetry monitoring and converting her to comfort care measures only with a plan to dischaged to facility with hospice. Patient likes the idea and would think about it. Patient also states that she had already spoken in the line with her Father who seemed to agree per patient. Patient states that she will let her nurse know after she decides. Same has been communicated to patient's brother Reji [[phone]] over the phone. He voiced understanding, he will communicate further with his sister.
--- NOTE | 2024-04-07 16:24 | Hospitalist Progress Note ---
Date of Service April 07, 2024 Assessment & Plan (1) Splenic infarct: (2) Lymphoproliferative disease: (3) Pneumonia: (4) Hepatic lesion: (5) Transaminitis: Plan 54yoF with PMHx significant for ITP, antiphospholipid syndrome/DVT currently on Lovenox, subdural hematoma, cholecystectomy, diabetes mellitus, hypothyroidism, and GERD presenting with three weeks of generalized malaise and abdominal pain with N/V and nonbloody diarrhea. She is being managed for the following: Acute on chronic anemia, unclear etiology Blood Antibody, unidentifiable Lymphoproliferative disorder OP records - 03/04 CBC: 36.9, plt 60k, wbc 5. Hgb on admission, 7.9. Anemia labs: B12 985, Folate 12.72, FE 70, TIBC 88, Ferritin 922.7, t bili 0.8 Concern for possible Lymphoma per admitting CTAP: 1. Interval progression of hepatosplenomegaly since CT of March 29, 2023 and a new 7.6 x 3.8 cm splenic infarct. Development of abdominal and pelvic lymphadenopathy. Overall, these findings raise the possibility of a lymphoproliferative disorder. Oncology consultation is recommended. 2. Multiple new ill-defined hypodense foci within the liver. These are entirely nonspecific although could be seen in the setting of lymphoma. Liver protocol MRI may be of benefit in further characterization. Oncology evaluated, recommended biopsy of one of the LNs to establish the cause for the lymphoproliferative disease. Patient adamantly refused MRI , offered IV medications for anxiety; declined suggestion of sedation. Pt doesn't want biopsy. Palliative evaluated, pt wants SNF (then LTC) with plan to transition to hospice and comfort care depending on progress, doesn't want biopsy or further cancer w/u, she doesn't want to prolong dying. Pt also doesn't want any EGD or Colon scope even if they are needed. FOBT positive, denies bloody stool, BUN normal ----c/w po pantoprazole. Transfuse <7, trend H/H daily or as needed. -Low frequency Antibodies +, per Nomi Dominique of blood bank [facility] didn't find a low freq IgG Ab on any of their cell lines so they don't think it was clinically significant. Hematology on board, appreciate recs. Hepatosplenomegaly, progressing Hepatic hypodense Lesions, new Transaminitis N/V/D/Abdominal Pain - n, v and appetite improving, still w/ loose stool. psyllium fiber and cholestyramine. 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 see above. Appetite improving per RN, antiemetics prn Continue to monitor Goals of care discussion: pt continues to decline many treatments. She doesn't want antibiotic discussion, has declined azithro and metronidazole, but has been ok w/ completing course for cefepime. She was advised this is not complete therapy, she stated she feels pressured into receiving antibiotic treatment by me bringing this discussion up and doesn't want to discuss about it anymore and doesn't want to switch to any other antibiotic. Also she has declined possibility of scopes (EGD or colon). She also declines any further blood product transfusion as of 04/07/24. Detailed discussion is being held every day, and was held today as well. Since, she feels tired and doesn't want to continue with many critical treatment options, we discussed about comfort care measures. She states she has brought this discussion up with her father yesterday who seemed to agree for comfort measures only per pt. Pt states she will think about it more and let her decisions know to nurse or myself. Chronic idiopathic thrombocytopenia Hx of ITP Follows Dr. Ralph Barron -trialed on Rituxan, c/b allergic reaction. Completed prolonged steroid taper Antiphospholipid antibody syndrome: on chronic anticoagulation Recent Subdural Hematoma 11/2023 Splenic Infarct: per admitting CTAP - see above. Pt reports pain under control. INR 2.5 on admission, transitioned to Heparin drip given history of subdural, but need for AC given propensity for thrombosis On lovenox 50mg BID at home Anemia work up as above Hem/Onc on board: transfuse platelet if less than 10,000 or if the patient is actively bleeding. Hold anticoagulation as long as platelet count is less than 50,000 given the risks of bleeding. If the patient is symptomatic from the splenic infarct then consider low-dose heparin and titrate to lower level of anti-Xa at any level. Pneumonia, questionable aspiration Sepsis, POA CT abdomen/pelvis noting 1.7 cm RLL airspace opacity and groundglass opacities within the lower lobes, favoring an infectious process. Tachycardic, tachypneic and hypotensive on admission with pulmonary infectious source. Procal elevated, lactate wnl. Blood Cx x2 -NG48H Pt denies aspiration and has Zosyn allergy c/w Cefepime 04/01 and Flagyl 03/31, azithromycin 04/01 for atypical coverage - pt declining antibiotics, pt has been counselled, still denied. Speech evaled, appreciate recs. TRISHA: resolved Demand ischemia: Troponin mildly elevated at presentation, EKG with sinus tachycardia, echo with EF of 60 to 65%, no wall motion abnormality. Likely demand ischemia in the setting of acute illness. Hypocalcemia : Monitor and replete. Hypovolemic Hyponatremia: Sodium of 127 at presentation. Likely in the setting of dehydration. Patient with chronic nausea and vomiting. s/p ivf. Improved. Back lesion: Pt with raised firm lesion on her upper back concerning for a skin carcinoma. OP f/u w/ derm on dc. DMII: A1c 4.3. Reportedly diet controlled Severe protein calorie malnutrition: 64 lb weight loss Diet:DMII DVT prophylaxis: SCDs, hold home lovenox, scds re: low platelets increased risk of bleeding. Dispo: PCU/tele. CM to assist w/ DC plan. Code; dnr/dni Admission and Anticipated Discharge Date Admission Date: March 31, 2024 Subjective Patient was sitting up in bed, on room air, NAD. Patient reports improving nausea or vomiting. Reports somewhat better appetite. Pt moving bowel ok. per RN no new acute events overnight. Patient denies headache or dizziness Or chest pain. Goals of care discussion held w/ patient [ RN at bedside]. Physical Exam Physical Exam: General: Alert, oriented, appears ill/sick/frail. Skin: bruising on skin noted, raised circular firm lesion on back Psych: Appropriate mood and affect Neuro: No gross deficits while sitting in bed HEENT: NC/AT CV: RRR Resp: Breath sounds clear bilaterally, no increased effort of breathing. Abdomen: Soft, tender epigastrium Extremities: trace edema in lower extremities bilaterally. Results & Data Results & Data Vital Signs (Past 12 Hours) Vital Signs Temp Pulse Pulse Resp BP Pulse Ox O2 Del Method 04/07/24 11:28 36.8 C 108 H 20 126/54 L 96 Room Air 04/07/24 08:00 93 H 04/07/24 08:00 36.8 C 112 H 18 115/60 97 Room Air
[2024-04-08] MEDS ORDERED: CEFEPIME 2,000 MG in SYRINGE 0 ML IV SCH
[2024-04-08] MEDS: SODIUM CHLORIDE 0.9% 1,000 ML IV ONE (01:53)
[2024-04-08] MEDS: CEFEPIME 2,000 MG in SYRINGE 0 ML IV SCH (01:54)
[2024-04-08 06:48] LABS: Hematocrit (blood only) 23.2 % (37.0-47.0); Hemoglobin 7.5 g/dl (12.0-16.0); Mean Corpuscular Hemoglobin 30.1 pg (25.0-34.0); Mean Corpuscular Hgb Conc 32.3 g/dL (32.0-36.0); Mean Corpuscular Volume 93.2 fL (80.0-100.0); Platelet Count 23 K/uL (130-400); RDW Coefficient of Variation 16.9 % (11.5-14.5); RDW Standard Deviation 55.9 fL (36.4-46.3); Red Blood Count 2.49 M/uL (4.20-5.40); White Blood Count 8.08 K/ul (4.8-10.8)
[2024-04-08 07:01] LABS: BUN Creatinine Ratio 17.6 (10-20); Calcium 8.1 mg/dl (8.6-10.3); Creatinine Clr Calc Pharmacy 57.3 ml/min; Est GFR (African American) 59.5 ml/min; Est GFR (Non-African American) 51.4 ml/min; Magnesium 1.7 mg/dl (1.7-2.4); Phosphorus 3.5 mg/dl (2.5-4.9); Potassium 4.1 mmol/L (3.5-5.1)
--- NOTE | 2024-04-08 13:49 | Palliative Family Discussion ---
Date of Service April 08, 2024 Patient Directed Conference Time of Meetin Participants: Cat Soler DNP Patient participation: yes Patient Support System: Mom, Dad, brother Other Healthcare Provider Participation: None Meeting Location:pt bedside] Advanced Directive available: Magaly states she wants to focus on comfort and not escalate care. She is not seeking hospice. An ACP family meeting was held for EVANGELINA DELEON. This meeting was necessary for determining the appropriate course of treatment. Topics of Discussion Topics of Discussion: 1. Brother had concerns about moving focus to be more about QOL = hospice. Discussed the difference. Magaly does not want escalated care, no returns to hospital unless absolutely needed and wants to avoid prolonging EOL or "dragging things out" noting that she does not feel she needs hospice right now but is open to it once her condition declines further 2. She would like a plan of care focusing on her QOL, minimize labs/no invasive measures and do what is needed to assure QOL. 3. Hospice when ready but not right now. We discussed hospice benefits. Other Content of Meetin. Opportunity given for participants to speak and ask questions. 2. Participants were assured of attention to patient comfort. 3. Reassurance provided. 4. Support was provided for informed, good-shaheen decisions. 5. Emotions expressed by family were acknowledged and addressed. 6. Comfort care for QOL, NOT hospice, DO NOT STOP ALL THERAPIES she and family are seeking no escalation but continue current level of care. Dr Alcantar updated TS 45min Thank you for allowing us to participate in the ongoing care of this patient. Please don't hesitate to call or page with any additional concerns. Dr. Cat Soler DNP Director, Palliative Care
--- NOTE | 2024-04-08 15:45 | Hospitalist Progress Note ---
Date of Service April 08, 2024 Assessment & Plan (1) Splenic infarct: (2) Lymphoproliferative disease: (3) Pneumonia: (4) Hepatic lesion: (5) Transaminitis: Plan 54yoF with PMHx significant for ITP, antiphospholipid syndrome/DVT currently on Lovenox, subdural hematoma, cholecystectomy, diabetes mellitus, hypothyroidism, and GERD presenting with three weeks of generalized malaise and abdominal pain with N/V and nonbloody diarrhea. She is being managed for the following: Acute on chronic anemia, unclear etiology Blood Antibody, unidentifiable Lymphoproliferative disorder OP records - 03/04 CBC: 36.9, plt 60k, wbc 5. Hgb on admission, 7.9. Anemia labs: B12 985, Folate 12.72, FE 70, TIBC 88, Ferritin 922.7, t bili 0.8 Concern for possible Lymphoma per admitting CTAP: 1. Interval progression of hepatosplenomegaly since CT of March 29, 2023 and a new 7.6 x 3.8 cm splenic infarct. Development of abdominal and pelvic lymphadenopathy. Overall, these findings raise the possibility of a lymphoproliferative disorder. Oncology consultation is recommended. 2. Multiple new ill-defined hypodense foci within the liver. These are entirely nonspecific although could be seen in the setting of lymphoma. Liver protocol MRI may be of benefit in further characterization. Oncology evaluated, recommended biopsy of one of the LNs to establish the cause for the lymphoproliferative disease. Patient adamantly refused MRI , offered IV medications for anxiety; declined suggestion of sedation. Pt doesn't want biopsy. Palliative evaluated, pt wants SNF (then LTC) with plan to transition to hospice and comfort care depending on progress, doesn't want biopsy or further cancer w/u, she doesn't want to prolong dying. As per 04/08 d/w palliative, pt is now comfort meaning no heart monitor, no escalation of care, focus on comfort, continue current therapy including labs. Pt also doesn't want any EGD or Colon scope even if they are needed. FOBT was positive, denies bloody stool, BUN normal ----c/w po pantoprazole. Transfuse <7, trend H/H daily or as needed. -Low frequency Antibodies +, per Nomi Dominique of blood bank [facility] didn't find a low freq IgG Ab on any of their cell lines so they don't think it was clinically significant. Hematology on board, appreciate recs. Hepatosplenomegaly, progressing Hepatic hypodense Lesions, new Transaminitis N/V/D/Abdominal Pain - n, v and appetite improving, still w/ loose stool. psyllium fiber and cholestyramine. 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 see above. Appetite improving per RN, antiemetics prn Continue to monitor Goals of care discussion: pt continues to decline many treatments. She doesn't want antibiotic discussion, has declined azithro and metronidazole, but has been ok w/ completing course for cefepime. She was advised this is not complete therapy, she stated she feels pressured into receiving antibiotic treatment by me bringing this discussion up and doesn't want to discuss about it anymore and doesn't want to switch to any other antibiotic. Also she has declined possibility of scopes (EGD or colon). She also declines any further blood product transfusion as of 04/07/24. Detailed discussion is being held every day, and was held today as well. Pt's brother and parents were present today. Explained current status and answered all their questions. Pt stands firm with her prior decisions. Family understands and wants to keep her comfortable. Family states they with stand with her decision. As per 04/08 d/w palliative, pt is now comfort meaning no heart monitor, no escalation of care, focus on comfort, continue current therapy including labs. Chronic idiopathic thrombocytopenia Hx of ITP Follows Dr. Ralph Barron -trialed on Rituxan, c/b allergic reaction. Completed prolonged steroid taper Antiphospholipid antibody syndrome: on chronic anticoagulation Recent Subdural Hematoma 11/2023 Splenic Infarct: per admitting CTAP - see above. Pt reports pain under control. INR 2.5 on admission, transitioned to Heparin drip given history of subdural, but need for AC given propensity for thrombosis On lovenox 50mg BID at home Anemia work up as above Hem/Onc on board: transfuse platelet if less than 10,000 or if the patient is actively bleeding. Hold anticoagulation as long as platelet count is less than 50,000 given the risks of bleeding. If the patient is symptomatic from the splenic infarct then consider low-dose heparin and titrate to lower level of anti-Xa at any level. Pneumonia, questionable aspiration Sepsis, POA CT abdomen/pelvis noting 1.7 cm RLL airspace opacity and groundglass opacities within the lower lobes, favoring an infectious process. Tachycardic, tachypneic and hypotensive on admission with pulmonary infectious source. Procal elevated, lactate wnl. Blood Cx x2 -NG48H Pt denies aspiration and has Zosyn allergy c/w Cefepime 04/01 and Flagyl 03/31, azithromycin 04/01 for atypical coverage - pt declining antibiotics, pt has been counselled, still denied. Speech evaled, appreciate recs. TRISHA: resolved Demand ischemia: Troponin mildly elevated at presentation, EKG with sinus tachycardia, echo with EF of 60 to 65%, no wall motion abnormality. Likely demand ischemia in the setting of acute illness. Hypocalcemia : Monitor and replete. Hypovolemic Hyponatremia: Sodium of 127 at presentation. Likely in the setting of dehydration. Patient with chronic nausea and vomiting. s/p ivf. Improved. Back lesion: Pt with raised firm lesion on her upper back concerning for a skin carcinoma. OP f/u w/ derm on dc. DMII: A1c 4.3. Reportedly diet controlled Severe protein calorie malnutrition: 64 lb weight loss Diet:DMII DVT prophylaxis: SCDs, hold home lovenox, scds re: low platelets increased risk of bleeding. Dispo: med/surg. CM to assist w/ DC plan. Code; dnr/dni Admission and Anticipated Discharge Date Admission Date: March 31, 2024 Subjective Patient was sitting up in bed, on room air, NAD. Patient reports occasional nausea , no vomiting. Reports eating little at a time. Pt moving bowel loose now but not diarrhea. per RN no new acute events overnight. Patient denies headache or dizziness Or chest pain. Goals of care discussion held w/ patient [ Parents and brother present]. Physical Exam Physical Exam: General: Alert, oriented, appears ill/sick/frail. Skin: bruising on skin noted, raised circular firm lesion on back Psych: Appropriate mood and affect Neuro: No gross deficits while sitting in bed HEENT: NC/AT CV: RRR Resp: Breath sounds clear bilaterally, no increased effort of breathing. Abdomen: Soft, tender epigastrium Extremities: trace edema in lower extremities bilaterally. Results & Data Results & Data Vital Signs (Past 12 Hours) Vital Signs Temp Pulse Pulse Resp BP Pulse Ox O2 Del Method 04/08/24 15:23 37.3 C 88 18 101/64 94 Room Air 04/08/24 10:56 37.1 C 89 18 102/61 94 Room Air 04/08/24 08:30 Room Air 04/08/24 08:03 98 H 04/08/24 07:31 37.4 C 112 H 20 107/68 95 Room Air
[2024-04-08] MEDS: LACTATED RINGER'S 1,000 ML IV ONE (20:17)
[2024-04-09] MEDS: ACETAMINOPHEN 500 MG TAB PO STA (05:54)
[2024-04-09 07:32] LABS: BUN Creatinine Ratio 19.6 (10-20); Calcium 8.1 mg/dl (8.6-10.3); Creatinine Clr Calc Pharmacy 63.8 ml/min; Est GFR (African American) 67.7 ml/min; Est GFR (Non-African American) 58.4 ml/min; Magnesium 1.7 mg/dl (1.7-2.4); Phosphorus 3.1 mg/dl (2.5-4.9); Potassium 3.8 mmol/L (3.5-5.1)
[2024-04-09 07:35] LABS: Hematocrit (blood only) 22.7 % (37.0-47.0); Hemoglobin 7.2 g/dl (12.0-16.0); Mean Corpuscular Hemoglobin 29.6 pg (25.0-34.0); Mean Corpuscular Hgb Conc 31.7 g/dL (32.0-36.0); Mean Corpuscular Volume 93.4 fL (80.0-100.0); Platelet Count 25 K/uL (130-400); RDW Coefficient of Variation 16.8 % (11.5-14.5); RDW Standard Deviation 56.9 fL (36.4-46.3); Red Blood Count 2.43 M/uL (4.20-5.40); White Blood Count 7.29 K/ul (4.8-10.8)
--- NOTE | 2024-04-09 12:53 | Hospitalist Progress Note ---
Date of Service April 09, 2024 Assessment & Plan (1) Splenic infarct: (2) Lymphoproliferative disease: (3) Pneumonia: (4) Hepatic lesion: (5) Transaminitis: Plan 54yoF with PMHx significant for ITP, antiphospholipid syndrome/DVT currently on Lovenox, subdural hematoma, cholecystectomy, diabetes mellitus, hypothyroidism, and GERD presenting with three weeks of generalized malaise and abdominal pain with N/V and nonbloody diarrhea. She is being managed for the following: Acute on chronic anemia, unclear etiology Blood Antibody, unidentifiable Lymphoproliferative disorder Outpatient records - 03/04 CBC: /36.9, plt 60k, wbc 5. Hgb on admission, 7.9. Anemia labs: B12 985, Folate 12.72, FE 70, TIBC 88, Ferritin 922.7, t bili 0.8 Concern for possible Lymphoma per admitting CTAP: 1. Interval progression of hepatosplenomegaly since CT of March 29, 2023 and a new 7.6 x 3.8 cm splenic infarct. Development of abdominal and pelvic lymphadenopathy. Overall, these findings raise the possibility of a lymphoproliferative disorder. Oncology consultation is recommended. 2. Multiple new ill-defined hypodense foci within the liver. These are entirely nonspecific although could be seen in the setting of lymphoma. Liver protocol MRI may be of benefit in further characterization. Oncology evaluated and recommended biopsy of one of the LNs to establish the cause for the lymphoproliferative disease. Patient declined MRI and biopsy. FOBT was positive No bloody stool, BUN normal Pt also doesn't want any EGD or Colon scope even if they are needed. Continue po pantoprazole. Transfuse <7, trend H/H daily or as needed if patient is agreeable. -Low frequency Antibodies +, per Nomi Dominique of blood bank [facility] didn't find a low freq IgG Ab on any of their cell lines so they don't think it was clinically significant. Hepatosplenomegaly, progressing Hepatic hypodense Lesions, new Transaminitis N/V/D/Abdominal Pain - n, v and appetite improving, still w/ loose stool. psyllium fiber and cholestyramine. 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 Symptom management Goals of care discussion: Per previous provider, She also declines any further blood product transfusion as of 04/07/24 Also did not want endoscopies. Palliative evaluated As per 04/08, patient does not want heart monitor, no escalation of care, continue current therapy including labs and focus on symptom management Patient is not on hospice/comfort measure only Chronic idiopathic thrombocytopenia Hx of ITP Follows Dr. Ralph Barron -trialed on Rituxan, c/b allergic reaction. Completed prolonged steroid taper Antiphospholipid antibody syndrome: on chronic anticoagulation Recent Subdural Hematoma 11/2023 Splenic Infarct: per admitting CTAP - see above. Pt reports pain under control. INR 2.5 on admission, transitioned to Heparin drip given history of subdural, but need for AC given propensity for thrombosis On lovenox 50mg BID at home Anemia work up as above Hem/Onc on board: transfuse platelet if less than 10,000 or if the patient is actively bleeding. Hold anticoagulation as long as platelet count is less than 50,000 given the risks of bleeding. If the patient is symptomatic from the splenic infarct then consider low-dose heparin and titrate to lower level of anti-Xa at any level. Pneumonia, questionable aspiration Sepsis, POA CT abdomen/pelvis noting 1.7 cm RLL airspace opacity and groundglass opacities within the lower lobes, favoring an infectious process. Tachycardic, tachypneic and hypotensive on admission with pulmonary infectious source. Procal elevated, lactate wnl. Blood Cx x2 negative Pt denies aspiration and has Zosyn allergy Had been on Cefepime for 9 days, Received 7 days of flagyl and 6 days of azithromycin No signs of infection at this time. All antibiotics stopped Monitor Speech evaled, appreciate recs. Patient requested for diet to be changed to minced and moist TRISHA: resolved Demand ischemia: Troponin mildly elevated at presentation, EKG with sinus tachycardia, echo with EF of 60 to 65%, no wall motion abnormality. Likely demand ischemia in the setting of acute illness. Hypocalcemia : Monitor and replete. Hypovolemic Hyponatremia: Sodium of 127 at presentation. Likely in the setting of dehydration. Patient with chronic nausea and vomiting. s/p ivf. Improved. Back lesion: Pt with raised firm lesion on her upper back concerning for a skin carcinoma. OP f/u w/ derm on dc. DMII: A1c 4.3. Reportedly diet controlled Severe protein calorie malnutrition: 64 lb weight loss Diet:DMII DVT prophylaxis: SCDs, hold home lovenox, scds re: low platelets increased risk of bleeding. Code; dnr/dni Updated patient, father and step mom at bedside CM working on maria de jesus I spent a total of *50 minutes coordinating, documenting and providing care for this patient excluding time spent in performance of separately billed services Admission and Anticipated Discharge Date Admission Date: March 31, 2024 Subjective Patient seen and examined. Reports weakness, anorexia. Reports some abdominal discomfort for and 1 loose stool earlier today. Denies any chest pain, cough, shortness of breath Denies fevers, chills Denies dysuria, frequency or urgency Physical Exam Constitutional: + well hydrated; no acute distress Chronically ill looking Eyes: PERRL, conjunctivae normal, anicteric sclerae ENMT: external ear and nose normal, oropharynx normal Respiratory: normal respiratory effort, lungs clear to auscultation Cardiovascular: S1 S2 Gastrointestinal (Abdomen): Soft, mild central abd tenderness, normal bowel sounds Musculoskeletal: No pedal edema Neurologic: PERRL, EOMI, accommodation nl, no face palsy, no dysarthria Results & Data Results & Data Vital Signs (Past 12 Hours) Vital Signs Temp Pulse Resp BP Pulse Ox O2 Del Method 04/09/24 09:44 Room Air 04/09/24 07:10 36.9 C 87 16 109/66 96 Room Air Laboratory Results Abnormal lab results 04/09/24 Range/Units 06:33 RBC 2.43 L (4.20-5.40) M/uL Hgb 7.2 L (12.0-16.0) g/dl Hct 22.7 L (37.0-47.0) % MCHC 31.7 L (32.0-36.0) g/dL RDW Std Deviation 56.9 H (36.4-46.3) fL RDW Coeff of Mitch 16.8 H (11.5-14.5) % Plt Count 25 L* (130-400) K/uL Sodium 134 L (136-145) mmol/L Carbon Dioxide 19 L (21-32) mmol/L Calcium 8.1 L (8.6-10.3) mg/dl
[2024-04-09] MEDS: ONDANSETRON INJ 2 MG/ML 2 ML VIAL IV SCH (20:13)
[2024-04-10 06:21] LABS: BUN Creatinine Ratio 18.8 (10-20); Calcium 8.2 mg/dl (8.6-10.3); Creatinine Clr Calc Pharmacy 67.5 ml/min; Est GFR (African American) 72.6 ml/min; Est GFR (Non-African American) 62.6 ml/min; Magnesium 1.6 mg/dl (1.7-2.4); Potassium 4.2 mmol/L (3.5-5.1)
[2024-04-10 06:40] LABS: Hematocrit (blood only) 23.5 % (37.0-47.0); Hemoglobin 7.5 g/dl (12.0-16.0); Mean Corpuscular Hemoglobin 29.6 pg (25.0-34.0); Mean Corpuscular Hgb Conc 31.9 g/dL (32.0-36.0); Mean Corpuscular Volume 92.9 fL (80.0-100.0); Platelet Count 21 K/uL (130-400); Platelet Estimate Signific. Decreased (Normal); RDW Coefficient of Variation 16.8 % (11.5-14.5); RDW Standard Deviation 56.8 fL (36.4-46.3); Red Blood Count 2.53 M/uL (4.20-5.40); White Blood Count 9.48 K/ul (4.8-10.8)
[2024-04-10] MEDS: MAGNESIUM SULFATE / D5W 1 GM/100 ML BAG IV SCH (09:49)
--- NOTE | 2024-04-10 14:56 | Hospitalist Progress Note ---
Date of Service April 10, 2024 Assessment & Plan (1) Splenic infarct: (2) Lymphoproliferative disease: (3) Pneumonia: (4) Hepatic lesion: (5) Transaminitis: Plan 54yoF with PMHx significant for ITP, antiphospholipid syndrome/DVT currently on Lovenox, subdural hematoma, cholecystectomy, diabetes mellitus, hypothyroidism, and GERD presenting with three weeks of generalized malaise and abdominal pain with N/V and nonbloody diarrhea. She is being managed for the following: Acute on chronic anemia, unclear etiology Blood Antibody, unidentifiable Lymphoproliferative disorder Outpatient records - 03/04 CBC: /36.9, plt 60k, wbc 5. Hgb on admission, 7.9. Anemia labs: B12 985, Folate 12.72, FE 70, TIBC 88, Ferritin 922.7, t bili 0.8 Concern for possible Lymphoma per admitting CTAP: 1. Interval progression of hepatosplenomegaly since CT of March 29, 2023 and a new 7.6 x 3.8 cm splenic infarct. Development of abdominal and pelvic lymphadenopathy. Overall, these findings raise the possibility of a lymphoproliferative disorder. Oncology consultation is recommended. 2. Multiple new ill-defined hypodense foci within the liver. These are entirely nonspecific although could be seen in the setting of lymphoma. Liver protocol MRI may be of benefit in further characterization. Oncology evaluated and recommended biopsy of one of the LNs to establish the cause for the lymphoproliferative disease. Patient declined MRI and biopsy. FOBT was positive No bloody stool, BUN normal Pt also doesn't want any EGD or Colon scope even if they are needed. Continue po pantoprazole. Transfuse <7, trend H/H daily or as needed if patient is agreeable. -Low frequency Antibodies +, per Nomi Dominique of blood bank - [facility] didn't find a low freq IgG Ab on any of their cell lines so they don't think it was clinically significant. 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 Symptom management Goals of care discussion: Per previous provider, She also declines any further blood product transfusion as of 04/07/24 Also did not want endoscopies. Palliative evaluated As per 04/08, patient does not want heart monitor, no escalation of care, continue current therapy including labs and focus on symptom management Patient is not on hospice/comfort measure only Chronic idiopathic thrombocytopenia Hx of ITP Follows Dr. Ralph Barron -trialed on Rituxan, c/b allergic reaction. Completed prolonged steroid taper Antiphospholipid antibody syndrome: on chronic anticoagulation Recent Subdural Hematoma 11/2023 Splenic Infarct: per admitting CTAP - see above. INR 2.5 on admission, transitioned to Heparin drip given history of subdural, but need for AC given propensity for thrombosis Was on lovenox 50mg BID at home Anemia work up as above Hem/Onc on board: transfuse platelet if less than 10,000 or if the patient is actively bleeding. Hold anticoagulation as long as platelet count is less than 50,000 given the risks of bleeding. If the patient is symptomatic from the splenic infarct then consider low-dose heparin and titrate to lower level of anti-Xa at any level. Anticoagulation has been on hold due to thrombocytopenia and anemia Pneumonia, questionable aspiration Sepsis, POA CT abdomen/pelvis noting 1.7 cm RLL airspace opacity and groundglass opacities within the lower lobes, favoring an infectious process. Tachycardic, tachypneic and hypotensive on admission with pulmonary infectious source. Procal elevated, lactate wnl. Blood Cx x2 negative Pt denies aspiration and has Zosyn allergy Had been on Cefepime for 9 days, Received 7 days of flagyl and 6 days of azithromycin No signs of infection at this time. All antibiotics had been stopped Monitor Speech evaled, appreciate recs. Poor food intake. Will continue to encourage frequent small meals if possible TRISHA: resolved Demand ischemia: Troponin mildly elevated at presentation, EKG with sinus tachycardia, echo with EF of 60 to 65%, no wall motion abnormality. Likely demand ischemia in the setting of acute illness. Hypocalcemia : Monitor and replete. Hypovolemic Hyponatremia: Sodium of 127 at presentation. Likely in the setting of dehydration. Patient with chronic nausea and vomiting. s/p ivf. Improved. Back lesion: Pt with raised firm lesion on her upper back concerning for a skin carcinoma. OP f/u w/ derm on dc. DMII: A1c 4.3. Reportedly diet controlled Severe protein calorie malnutrition: 64 lb weight loss Diet:DMII DVT prophylaxis: SCDs, hold home lovenox, scds re: low platelets increased risk of bleeding. Code; dnr/dni Updated patient and brother at bedside CM working on placement I spent a total of 40 minutes coordinating, documenting and providing care for this patient excluding time spent in performance of separately billed services Admission and Anticipated Discharge Date Admission Date: March 31, 2024 Subjective Patient seen and examined. Reports weakness, anorexia. Reports some abdominal discomfort Reports nausea but had been declining scheduled zofran Denies any chest pain, cough, shortness of breath Denies fevers, chills Denies dysuria, frequency or urgency Physical Exam Constitutional: + well hydrated; no acute distress Eyes: PERRL, conjunctivae normal, anicteric sclerae ENMT: external ear and nose normal, oropharynx normal Respiratory: normal respiratory effort, lungs clear to auscultation Cardiovascular: s1 s2 Gastrointestinal (Abdomen): Soft, mild central abd tenderness, normal bowel sounds Musculoskeletal: No pedal edema Neurologic: PERRL, EOMI, accommodation nl, no face palsy, no dysarthria Psychiatric: AOx3 Results & Data Results & Data Vital Signs (Past 12 Hours) Vital Signs Temp Pulse Resp BP Pulse Ox O2 Del Method 04/10/24 14:42 37.1 C 108 H 16 121/80 94 Room Air 04/10/24 09:28 Room Air 04/10/24 07:48 36.6 C 104 H 16 117/78 99 Room Air Laboratory Results Abnormal lab results 04/10/24 Range/Units 05:35 RBC 2.53 L (4.20-5.40) M/uL Hgb 7.5 L (12.0-16.0) g/dl Hct 23.5 L (37.0-47.0) % MCHC 31.9 L (32.0-36.0) g/dL RDW Std Deviation 56.8 H (36.4-46.3) fL RDW Coeff of Mitch 16.8 H (11.5-14.5) % Plt Count 21 L* (130-400) K/uL Platelet Estimate Signific. Decreased L (Normal) Sodium 133 L (136-145) mmol/L Carbon Dioxide 19 L (21-32) mmol/L Calcium 8.2 L (8.6-10.3) mg/dl Magnesium 1.6 L (1.7-2.4) mg/dl
[2024-04-11 08:47] LABS: BUN Creatinine Ratio 19.8 (10-20); Calcium 8.4 mg/dl (8.6-10.3); Creatinine Clr Calc Pharmacy 67.5 ml/min; Est GFR (African American) 72.6 ml/min; Est GFR (Non-African American) 62.6 ml/min; Phosphorus 3.6 mg/dl (2.5-4.9); Potassium 4.1 mmol/L (3.5-5.1)
[2024-04-11 08:58] LABS: Hematocrit (blood only) 22.3 % (37.0-47.0); Hemoglobin 7.1 g/dl (12.0-16.0); Mean Corpuscular Hemoglobin 29.3 pg (25.0-34.0); Mean Corpuscular Hgb Conc 31.8 g/dL (32.0-36.0); Mean Corpuscular Volume 92.1 fL (80.0-100.0); Platelet Count 17 K/uL (130-400); RDW Coefficient of Variation 16.9 % (11.5-14.5); RDW Standard Deviation 55.7 fL (36.4-46.3); Red Blood Count 2.42 M/uL (4.20-5.40)
--- NOTE | 2024-04-11 11:59 | Hospitalist Progress Note ---
Date of Service April 11, 2024 Assessment & Plan (1) Splenic infarct: (2) Lymphoproliferative disease: (3) Pneumonia: (4) Hepatic lesion: (5) Transaminitis: Plan 54yoF with PMHx significant for ITP, antiphospholipid syndrome/DVT currently on Lovenox, subdural hematoma, cholecystectomy, diabetes mellitus, hypothyroidism, and GERD presenting with three weeks of generalized malaise and abdominal pain with N/V and nonbloody diarrhea. She is being managed for the following: Acute on chronic anemia, unclear etiology Blood Antibody, unidentifiable Lymphoproliferative disorder Thrombocytopenia Outpatient records - 03/04 CBC: /36.9, plt 60k, wbc 5. Hgb on admission, 7.9. Anemia labs: B12 985, Folate 12.72, FE 70, TIBC 88, Ferritin 922.7, t bili 0.8 Concern for possible Lymphoma per admitting CTAP: 1. Interval progression of hepatosplenomegaly since CT of March 29, 2023 and a new 7.6 x 3.8 cm splenic infarct. Development of abdominal and pelvic lymphadenopathy. Overall, these findings raise the possibility of a lymphoproliferative disorder. Oncology consultation is recommended. 2. Multiple new ill-defined hypodense foci within the liver. These are entirely nonspecific although could be seen in the setting of lymphoma. Liver protocol MRI may be of benefit in further characterization. Oncology evaluated and recommended biopsy of one of the LNs to establish the cause for the lymphoproliferative disease. Patient declined MRI and biopsy. FOBT was positive No bloody stool, BUN normal Pt also doesn't want any EGD or Colon scope even if they are needed. Continue po pantoprazole. Hb has been in 7s Platelet has been trending down. Down to 17 -Low frequency Antibodies +, per Nomi Dominique of blood bank - [facility] didn't find a low freq IgG Ab on any of their cell lines so they don't think it was clinically significant. 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 Symptom management Goals of care discussion: Per previous provider, She also declines any further blood product transfusion as of 04/07/24 Also did not want endoscopies. Palliative evaluated As per 04/08, patient does not want heart monitor, no escalation of care, continue current therapy including labs and focus on symptom management Patient is not on hospice/comfort measure only Today, Patient restated that she does not want blood transfusion I discussed futility of checking labs if she does not want any transfusions (blood or platelet) We had further GOC conversations. 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 We discussed other options but she stated she will let me know if she changes her mind. Chronic idiopathic thrombocytopenia Hx of ITP Follows Dr. Ralph Barron -trialed on Rituxan, c/b allergic reaction. Completed prolonged steroid taper Antiphospholipid antibody syndrome: on chronic anticoagulation Recent Subdural Hematoma 11/2023 Splenic Infarct: per admitting CTAP - see above. INR 2.5 on admission, transitioned to Heparin drip given history of subdural, but need for AC given propensity for thrombosis Was on lovenox 50mg BID at home Anemia work up as above Hem/Onc on board: transfuse platelet if less than 10,000 or if the patient is actively bleeding. Hold anticoagulation as long as platelet count is less than 50,000 given the risks of bleeding. If the patient is symptomatic from the splenic infarct then consider low-dose heparin and titrate to lower level of anti-Xa at any level. Anticoagulation has been on hold due to thrombocytopenia and anemia Pneumonia, questionable aspiration Sepsis, POA CT abdomen/pelvis noting 1.7 cm RLL airspace opacity and groundglass opacities within the lower lobes, favoring an infectious process. Tachycardic, tachypneic and hypotensive on admission with pulmonary infectious source. Procal elevated, lactate wnl. Blood Cx x2 negative Pt denies aspiration and has Zosyn allergy Had been on Cefepime for 9 days, Received 7 days of flagyl and 6 days of azithromycin Off antibiotics now Speech evaled, appreciate recs. Poor food intake. Will continue to encourage frequent small meals if possible TRISHA: resolved Demand ischemia: Troponin mildly elevated at presentation, EKG with sinus tachycardia, echo with EF of 60 to 65%, no wall motion abnormality. Likely demand ischemia in the setting of acute illness. Hypocalcemia : Monitor and replete. Hypovolemic Hyponatremia: Sodium of 127 at presentation. Likely in the setting of dehydration. Patient with chronic nausea and vomiting. s/p ivf. Improved. Back lesion: Pt with raised firm lesion on her upper back concerning for a skin carcinoma. OP f/u w/ derm on dc. DMII: A1c 4.3. Reportedly diet controlled Severe protein calorie malnutrition: 64 lb weight loss Diet:DMII DVT prophylaxis: SCDs, hold home lovenox, scds re: low platelets increased risk of bleeding. Code; dnr/dni CM working on placement I spent a total of 45 minutes coordinating, documenting and providing care for this patient excluding time spent in performance of separately billed services Admission and Anticipated Discharge Date Admission Date: March 31, 2024 Subjective Patient seen and examined. Continues to complain of weakness, nausea, anorexia and abdominal pain However she has been declining oxycodone prn and zofran. Physical Exam Constitutional: + well hydrated; no acute distress Eyes: PERRL, conjunctivae normal, anicteric sclerae ENMT: external ear and nose normal, oropharynx normal Respiratory: normal respiratory effort, lungs clear to auscultation Cardiovascular: S1 S2 Gastrointestinal (Abdomen): Soft, +central abd tenderness, normal bowel sounds Musculoskeletal: No pedal edema Neurologic: PERRL, EOMI, accommodation nl, no face palsy, no dysarthria Psychiatric: AOx3 Results & Data Results & Data Vital Signs (Past 12 Hours) Vital Signs Temp Pulse Resp BP Pulse Ox O2 Del Method 04/11/24 08:51 92 H 96 Room Air 04/11/24 07:40 37.2 C 95 H 16 106/65 92 Room Air 04/11/24 07:30 Room Air 04/11/24 01:57 37.4 C 102 H 16 93 Room Air Laboratory Results Abnormal lab results 04/11/24 Range/Units 08:14 RBC 2.42 L (4.20-5.40) M/uL Hgb 7.1 L (12.0-16.0) g/dl Hct 22.3 L (37.0-47.0) % MCHC 31.8 L (32.0-36.0) g/dL RDW Std Deviation 55.7 H (36.4-46.3) fL RDW Coeff of Mitch 16.9 H (11.5-14.5) % Plt Count 17 L* (130-400) K/uL Sodium 133 L (136-145) mmol/L Carbon Dioxide 20 L (21-32) mmol/L Calcium 8.4 L (8.6-10.3) mg/dl
--- NOTE | 2024-04-12 13:33 | Hospitalist Progress Note ---
Date of Service April 12, 2024 Assessment & Plan (1) Splenic infarct: (2) Lymphoproliferative disease: (3) Pneumonia: (4) Hepatic lesion: (5) Transaminitis: Plan 54yoF with PMHx significant for ITP, antiphospholipid syndrome/DVT currently on Lovenox, subdural hematoma, cholecystectomy, diabetes mellitus, hypothyroidism, and GERD presenting with three weeks of generalized malaise and abdominal pain with N/V and nonbloody diarrhea. She is being managed for the following: Acute on chronic anemia, unclear etiology Blood Antibody, unidentifiable Lymphoproliferative disorder Thrombocytopenia Outpatient records - 03/04 CBC: /36.9, plt 60k, wbc 5. Hgb on admission, 7.9. Anemia labs: B12 985, Folate 12.72, FE 70, TIBC 88, Ferritin 922.7, t bili 0.8 Concern for possible Lymphoma per admitting CTAP: 1. Interval progression of hepatosplenomegaly since CT of March 29, 2023 and a new 7.6 x 3.8 cm splenic infarct. Development of abdominal and pelvic lymphadenopathy. Overall, these findings raise the possibility of a lymphoproliferative disorder. Oncology consultation is recommended. 2. Multiple new ill-defined hypodense foci within the liver. These are entirely nonspecific although could be seen in the setting of lymphoma. Liver protocol MRI may be of benefit in further characterization. Oncology evaluated and recommended biopsy of one of the LNs to establish the cause for the lymphoproliferative disease. Patient declined MRI and biopsy. FOBT was positive No bloody stool, BUN normal Pt also doesn't want any EGD or Colon scope even if they are needed. Continue po pantoprazole. Hb has been in 7s Platelet has been trended down. Down to 17 -Low frequency Antibodies +, per Nomi Dominique of blood bank [facility] didn't find a low freq IgG Ab on any of their cell lines so they don't think it was clinically significant. 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 Symptom management Goals of care discussion: Per previous provider, She also declines any further blood product transfusion as of 04/07/24 Also did not want endoscopies. Palliative evaluated As per 04/08, patient does not want heart monitor, no escalation of care, continue current therapy including labs and focus on symptom management Patient is not on hospice/comfort measure only On 04/12/24, Patient restated that she does not want blood transfusion and declined further blood work at this time She stated she is looking forward to placement Continue symptom control though patient continues to decline pain meds besides t ylenol and antiemetics Chronic idiopathic thrombocytopenia Hx of ITP Follows Dr. Ralph Barron -trialed on Rituxan, c/b allergic reaction. Completed prolonged steroid taper Antiphospholipid antibody syndrome: on chronic anticoagulation Recent Subdural Hematoma 11/2023 Splenic Infarct: per admitting CTAP - see above. INR 2.5 on admission, transitioned to Heparin drip given history of subdural, but need for AC given propensity for thrombosis Was on lovenox 50mg BID at home Anemia work up as above Hem/Onc on board: transfuse platelet if less than 10,000 or if the patient is actively bleeding. Hold anticoagulation as long as platelet count is less than 50,000 given the risks of bleeding. If the patient is symptomatic from the splenic infarct then consider low-dose heparin and titrate to lower level of anti-Xa at any level. Anticoagulation has been on hold due to thrombocytopenia and anemia Pneumonia, questionable aspiration Sepsis, POA CT abdomen/pelvis noting 1.7 cm RLL airspace opacity and groundglass opacities within the lower lobes, favoring an infectious process. Tachycardic, tachypneic and hypotensive on admission with pulmonary infectious source. Procal elevated, lactate wnl. Blood Cx x2 negative Pt denies aspiration and has Zosyn allergy Had been on Cefepime for 9 days, Received 7 days of flagyl and 6 days of azithromycin Off antibiotics now Speech recs noted Poor food intake. Will continue to encourage frequent small meals if possible TRISHA: resolved Demand ischemia: Troponin mildly elevated at presentation, EKG with sinus tachycardia, echo with EF of 60 to 65%, no wall motion abnormality. Likely demand ischemia in the setting of acute illness. Hypocalcemia : Monitor and replete. Hypovolemic Hyponatremia: Sodium of 127 at presentation. Likely in the setting of dehydration. Patient with chronic nausea and vomiting. s/p ivf. Improved. Back lesion: Pt with raised firm lesion on her upper back concerning for a skin carcinoma. OP f/u w/ derm on dc. DMII: A1c 4.3. Reportedly diet controlled Severe protein calorie malnutrition: 64 lb weight loss Diet:DMII DVT prophylaxis: SCDs, hold home lovenox, scds re: low platelets increased risk of bleeding. Code; dnr/dni CM working on placement I spent a total of 40 minutes coordinating, documenting and providing care for this patient excluding time spent in performance of separately billed services Admission and Anticipated Discharge Date Admission Date: March 31, 2024 Subjective Patient seen and examined. Reports weakness, nausea, anorexia and abdominal pain Physical Exam Constitutional: + well hydrated; no acute distress Eyes: PERRL, conjunctivae normal, anicteric sclerae ENMT: external ear and nose normal, oropharynx normal Respiratory: normal respiratory effort, lungs clear to auscultation Cardiovascular: S1 S2 Gastrointestinal (Abdomen): LUQ tenderness, soft, normal bowel sounds Musculoskeletal: No pedal edema Neurologic: PERRL, EOMI, accommodation nl, no face palsy, no dysarthria Psychiatric: AOx3 Results & Data Results & Data Vital Signs (Past 12 Hours) Vital Signs Temp Pulse Resp BP Pulse Ox O2 Del Method 04/12/24 06:57 36.6 C 88 16 108/70 95 Room Air
[2024-04-12] MEDS: SODIUM CHLORIDE 0.9% 1,000 ML IV SCH (18:06)
--- NOTE | 2024-04-13 15:37 | Hospitalist Progress Note ---
Date of Service April 13, 2024 Assessment & Plan (1) Splenic infarct: (2) Lymphoproliferative disease: (3) Pneumonia: (4) Hepatic lesion: (5) Transaminitis: Plan 54yoF with PMHx significant for ITP, antiphospholipid syndrome/DVT currently on Lovenox, subdural hematoma, cholecystectomy, diabetes mellitus, hypothyroidism, and GERD presenting with three weeks of generalized malaise and abdominal pain with N/V and nonbloody diarrhea. She is being managed for the following: Acute on chronic anemia, unclear etiology Blood Antibody, unidentifiable Lymphoproliferative disorder Thrombocytopenia Outpatient records - 03/04 CBC: /36.9, plt 60k, wbc 5. Hgb on admission, 7.9. Anemia labs: B12 985, Folate 12.72, FE 70, TIBC 88, Ferritin 922.7, t bili 0.8 Concern for possible Lymphoma per admitting CTAP: 1. Interval progression of hepatosplenomegaly since CT of March 29, 2023 and a new 7.6 x 3.8 cm splenic infarct. Development of abdominal and pelvic lymphadenopathy. Overall, these findings raise the possibility of a lymphoproliferative disorder. Oncology consultation is recommended. 2. Multiple new ill-defined hypodense foci within the liver. These are entirely nonspecific although could be seen in the setting of lymphoma. Liver protocol MRI may be of benefit in further characterization. Oncology evaluated and recommended biopsy of one of the LNs to establish the cause for the lymphoproliferative disease. Patient declined MRI and biopsy. FOBT was positive No bloody stool, BUN normal Pt also doesn't want any EGD or Colon scope even if they are needed. Continue po pantoprazole. Hb had been in 7s Platelet has been trended down. Down to 17 -Low frequency Antibodies +, per Nomi Dominique of blood bank - [facility] didn't find a low freq IgG Ab on any of their cell lines so they don't think it was clinically significant. 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 Symptom management Goals of care discussion: Per previous provider, She also declines any further blood product transfusion as of 04/07/24 Also did not want endoscopies. Palliative evaluated As per 04/08, patient does not want heart monitor, no escalation of care, continue current therapy including labs and focus on symptom management Patient is not on hospice/comfort measure only On 04/12/24, Patient restated that she does not want blood transfusion and declined further blood work at this time She stated she is looking forward to placement Continue symptom control though patient continues to decline pain meds besides t ylenol She also declines antiemetics most of the time Chronic idiopathic thrombocytopenia Hx of ITP Follows Dr. Ralph Barron -trialed on Rituxan, c/b allergic reaction. Completed prolonged steroid taper Antiphospholipid antibody syndrome: on chronic anticoagulation Recent Subdural Hematoma 11/2023 Splenic Infarct: per admitting CTAP - see above. INR 2.5 on admission, transitioned to Heparin drip given history of subdural, but need for AC given propensity for thrombosis Was on lovenox 50mg BID at home Anemia work up as above Hem/Onc on board: transfuse platelet if less than 10,000 or if the patient is actively bleeding. Hold anticoagulation as long as platelet count is less than 50,000 given the risks of bleeding. If the patient is symptomatic from the splenic infarct then consider low-dose heparin and titrate to lower level of anti-Xa at any level. Anticoagulation has been on hold due to thrombocytopenia and anemia Pneumonia, questionable aspiration Sepsis, POA CT abdomen/pelvis noting 1.7 cm RLL airspace opacity and groundglass opacities within the lower lobes, favoring an infectious process. Tachycardic, tachypneic and hypotensive on admission with pulmonary infectious source. Procal elevated, lactate wnl. Blood Cx x2 negative Pt denies aspiration and has Zosyn allergy Had been on Cefepime for 9 days, Received 7 days of flagyl and 6 days of azithromycin Off antibiotics now Speech recs noted Poor food intake. Continue to encourage frequent small meals if possible TRISHA: resolved Demand ischemia: Troponin mildly elevated at presentation, EKG with sinus tachycardia, echo with EF of 60 to 65%, no wall motion abnormality. Likely demand ischemia in the setting of acute illness. Hypocalcemia : Monitor and replete. Hypovolemic Hyponatremia: Sodium of 127 at presentation. Likely in the setting of dehydration. Patient with chronic nausea and vomiting. s/p ivf. Improved. Back lesion: Pt with raised firm lesion on her upper back concerning for a skin carcinoma. OP f/u w/ derm on dc. DMII: A1c 4.3. Reportedly diet controlled Severe protein calorie malnutrition: 64 lb weight loss Diet:DMII DVT prophylaxis: SCDs, hold home lovenox, scds re: low platelets increased risk of bleeding. Code; dnr/dni CM working on placement I spent a total of 35 minutes coordinating, documenting and providing care for this patient excluding time spent in performance of separately billed services Admission and Anticipated Discharge Date Admission Date: March 31, 2024 Subjective Patient seen and examined. Reports weakness, nausea, anorexia and abdominal pain Patient stating she would prefer IVF. She had got some from yesterday evening till this AM I counseled patient that it is not ideal to continue being on IVF for someone who can drink by mouth Physical Exam 2 Constitutional: + well hydrated; no acute distress Eyes: PERRL, conjunctivae normal, anicteric sclerae ENMT: external ear and nose normal, oropharynx normal Respiratory: normal respiratory effort, lungs clear to auscultation Cardiovascular: S1 S2 Gastrointestinal (Abdomen): LUQ tenderness. Normal bowel sounds Musculoskeletal: NO pedal edema Neurologic: PERRL, EOMI, accommodation nl, no face palsy, no dysarthria Psychiatric: AOX3 Results & Data Results & Data Vital Signs (Past 12 Hours) Vital Signs Temp Pulse Resp BP Pulse Ox O2 Del Method 04/13/24 11:04 Room Air 04/13/24 07:21 37.0 C 110 H 16 117/76 93 Room Air 04/13/24 04:39 122 H 92 Room Air
[2024-04-14] MEDS ORDERED: MELATONIN 3 MG TAB PO PRN (12:10)
--- NOTE | 2024-04-14 15:53 | Hospitalist Progress Note ---
Date of Service April 14, 2024 Assessment & Plan (1) Splenic infarct: (2) Lymphoproliferative disease: (3) Pneumonia: (4) Hepatic lesion: (5) Transaminitis: Plan 54yoF with PMHx significant for ITP, antiphospholipid syndrome/DVT currently on Lovenox, subdural hematoma, cholecystectomy, diabetes mellitus, hypothyroidism, and GERD presenting with three weeks of generalized malaise and abdominal pain with N/V and nonbloody diarrhea. She is being managed for the following: Acute on chronic anemia, unclear etiology Blood Antibody, unidentifiable Lymphoproliferative disorder Thrombocytopenia Outpatient records - 03/04 CBC: 12/36.9, plt 60k, wbc 5. Hgb on admission, 7.9. Anemia labs: B12 985, Folate 12.72, FE 70, TIBC 88, Ferritin 922.7, t bili 0.8 Concern for possible Lymphoma per admitting CTAP: 1. Interval progression of hepatosplenomegaly since CT of March 29, 2023 and a new 7.6 x 3.8 cm splenic infarct. Development of abdominal and pelvic lymphadenopathy. Overall, these findings raise the possibility of a lymphoproliferative disorder. 2. Multiple new ill-defined hypodense foci within the liver. These are entirely nonspecific although could be seen in the setting of lymphoma. Liver protocol MRI may be of benefit in further characterization. Oncology evaluated and recommended biopsy of one of the LNs to establish the cause for the lymphoproliferative disease. Patient declined MRI and biopsy. FOBT was positive No bloody stool, BUN normal Pt also doesn't want any EGD or Colon scope even if they are needed. Continue po pantoprazole. Hb had been in 7s Platelet has been trended down. Down to 17 -Low frequency Antibodies +, per Nomi Dominique of blood bank [facility] didn't find a low freq IgG Ab on any of their cell lines so they don't think it was clinically significant. 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 Symptom management Goals of care discussion: Per previous provider, She also declines any further blood product transfusion as of 04/07/24 Also did not want endoscopies. Palliative evaluated As per 04/08, patient does not want heart monitor, no escalation of care, continue current therapy including labs and focus on symptom management Patient is not on hospice/comfort measure only On 04/12/24, Patient restated that she does not want blood transfusion and marian jamaal further blood work at this time She stated she is looking forward to placement Continue symptom control though patient continues to decline pain meds besides tylenol She also declines antiemetics Chronic idiopathic thrombocytopenia Hx of ITP Follows Dr. Ralph Barron -trialed on Rituxan, c/b allergic reaction. Completed prolonged steroid taper Antiphospholipid antibody syndrome: on chronic anticoagulation Recent Subdural Hematoma 11/2023 Splenic Infarct: per admitting CTAP - see above. INR 2.5 on admission, transitioned to Heparin drip given history of subdural, but need for AC given propensity for thrombosis Was on lovenox 50mg BID at home Anemia work up as above Hem/Onc : transfuse platelet if less than 10,000 or if the patient is actively bleeding. Hold anticoagulation as long as platelet count is less than 50,000 given the risks of bleeding. If the patient is symptomatic from the splenic infarct then consider low-dose heparin and titrate to lower level of anti-Xa at any level. Anticoagulation has been on hold due to thrombocytopenia and anemia Pneumonia, questionable aspiration Sepsis, POA CT abdomen/pelvis noting 1.7 cm RLL airspace opacity and groundglass opacities within the lower lobes, favoring an infectious process. Tachycardic, tachypneic and hypotensive on admission with pulmonary infectious source. Procal elevated, lactate wnl. Blood Cx x2 negative Pt denies aspiration and has Zosyn allergy Had been on Cefepime for 9 days, Received 7 days of flagyl and 6 days of azithromycin Off antibiotics now Speech recs noted Poor food intake. Continue to encourage frequent small meals if possible TRISHA: resolved Demand ischemia: Troponin mildly elevated at presentation, EKG with sinus tachycardia, echo with EF of 60 to 65%, no wall motion abnormality. Likely demand ischemia in the setting of acute illness. Hypocalcemia : Monitor and replete. Hypovolemic Hyponatremia: Sodium of 127 at presentation. Likely in the setting of dehydration. Patient with chronic nausea and vomiting. s/p ivf. Improved. Back lesion: Pt with raised firm lesion on her upper back concerning for a skin carcinoma. OP f/u w/ derm on dc. DMII: A1c 4.3. Reportedly diet controlled Severe protein calorie malnutrition: 64 lb weight loss Diet:DMII DVT prophylaxis: SCDs, hold home lovenox, scds re: low platelets increased risk of bleeding. Code; dnr/dni CM working on placement Melatonin HS PRN insomnia per patient's request Updated father and step mother at bedside I spent a total of 35 minutes coordinating, documenting and providing care for t his patient excluding time spent in performance of separately billed services Admission and Anticipated Discharge Date Admission Date: March 31, 2024 Subjective Patient seen and examined. Reports weakness, nausea, anorexia and abdominal pain but has been declining antiemetics or pain meds except tylenol Physical Exam Constitutional: + well hydrated; no acute distress Eyes: PERRL, conjunctivae normal, anicteric sclerae ENMT: external ear and nose normal, oropharynx normal Respiratory: normal respiratory effort, lungs clear to auscultation Cardiovascular: S1 S2 Gastrointestinal (Abdomen): LUQ tenderness Musculoskeletal: No pedal edema Neurologic: PERRL, EOMI, accommodation nl, no face palsy, no dysarthria Psychiatric: AOX3 Results & Data Results & Data Vital Signs (Past 12 Hours) Vital Signs Temp Pulse Resp BP Pulse Ox O2 Del Method 04/14/24 07:25 Room Air 04/14/24 07:24 37.5 C 106 H 16 112/67 92 Room Air
[2024-04-14] MEDS: LOPERAMIDE HCL 2 MG CAP PO PRN (18:31)
--- NOTE | 2024-04-15 11:59 | Hospitalist Progress Note ---
Date of Service April 15, 2024 Assessment & Plan (1) Splenic infarct: (2) Lymphoproliferative disease: (3) Pneumonia: (4) Hepatic lesion: (5) Transaminitis: Plan 54yoF with PMHx significant for ITP, antiphospholipid syndrome/DVT currently on Lovenox, subdural hematoma, cholecystectomy, diabetes mellitus, hypothyroidism, and GERD presenting with three weeks of generalized malaise and abdominal pain with N/V and nonbloody diarrhea. She is being managed for the following: Acute on chronic anemia, unclear etiology Blood Antibody, unidentifiable Lymphoproliferative disorder Thrombocytopenia Outpatient records - 03/04 CBC: 12/36.9, plt 60k, wbc 5. Hgb on admission, 7.9. Anemia labs: B12 985, Folate 12.72, FE 70, TIBC 88, Ferritin 922.7, t bili 0.8 Concern for possible Lymphoma per admitting CTAP: 1. Interval progression of hepatosplenomegaly since CT of March 29, 2023 and a new 7.6 x 3.8 cm splenic infarct. Development of abdominal and pelvic lymphadenopathy. Overall, these findings raise the possibility of a lymphoproliferative disorder. 2. Multiple new ill-defined hypodense foci within the liver. These are entirely nonspecific although could be seen in the setting of lymphoma. Liver protocol MRI may be of benefit in further characterization. Oncology evaluated and recommended biopsy of one of the LNs to establish the cause for the lymphoproliferative disease. Patient declined MRI and biopsy. FOBT was positive No bloody stool, BUN normal Pt also doesn't want any EGD or Colon scope even if they are needed. Continue po pantoprazole. Hb had been in 7s Platelet has been trended down. Down to 17 -Low frequency Antibodies +, per Nomi Dominique of blood bank [facility] didn't find a low freq IgG Ab on any of their cell lines so they don't think it was clinically significant. Hepatosplenomegaly, progressing Hepatic hypodense Lesions, new Transaminitis N/V/D/Abdominal Pain - Pt presenting with abdominal pain for the last 3 weeks [employer] Noted transaminitis likely iso hepatic lesions, pt with Hx of cholecystectomy 2021, Stool Cx negative CT abd/pelvis as above Pt declines further work up. Goals of care discussion: Per previous provider, She also declines any further blood product transfusion as of 04/07/24 Also did not want endoscopies. Palliative evaluated As per 04/08, patient does not want heart monitor, no escalation of care, continue current therapy including labs and focus on symptom management Patient is not on hospice/comfort measure only On 04/12/24, Patient restated that she does not want blood transfusion and declined further blood work at this time Continue symptom control though patient continues to decline pain meds besides tylenol Declines pain med and antiemetics most times Chronic idiopathic thrombocytopenia Hx of ITP Follows Dr. Ralph Barron -trialed on Rituxan, c/b allergic reaction. Completed prolonged steroid taper Antiphospholipid antibody syndrome: on chronic anticoagulation Recent Subdural Hematoma 11/2023 Splenic Infarct: per admitting CTAP - see above. INR 2.5 on admission, transitioned to Heparin drip given history of subdural, but need for AC given propensity for thrombosis Was on lovenox 50mg BID at home Anemia work up as above Hem/Onc : transfuse platelet if less than 10,000 or if the patient is actively bleeding. Hold anticoagulation as long as platelet count is less than 50,000 given the risks of bleeding. If the patient is symptomatic from the splenic infarct then consider low-dose heparin and titrate to lower level of anti-Xa at any level. Anticoagulation has been on hold due to thrombocytopenia and anemia Pneumonia, questionable aspiration Sepsis, POA CT abdomen/pelvis noting 1.7 cm RLL airspace opacity and groundglass opacities within the lower lobes, favoring an infectious process. Tachycardic, tachypneic and hypotensive on admission with pulmonary infectious source. Procal elevated, lactate wnl. Blood Cx x2 negative Pt denies aspiration and has Zosyn allergy Had been on Cefepime for 9 days, Received 7 days of flagyl and 6 days of azithromycin Off antibiotics now Speech recs noted Poor food intake. Continue to encourage frequent small meals if possible TRISHA: resolved Demand ischemia: Troponin mildly elevated at presentation, EKG with sinus tachycardia, echo with EF of 60 to 65%, no wall motion abnormality. Likely demand ischemia in the setting of acute illness. Hypocalcemia : Monitor and replete. Hypovolemic Hyponatremia: Sodium of 127 at presentation. Likely in the setting of dehydration. Patient with chronic nausea and vomiting. s/p ivf. Improved. Back lesion: Pt with raised firm lesion on her upper back concerning for a skin carcinoma. OP f/u w/ derm on dc. DMII: A1c 4.3. Reportedly diet controlled Severe protein calorie malnutrition: 64 lb weight loss Diet:DMII DVT prophylaxis: SCDs, hold home lovenox, scds re: low platelets increased risk of bleeding. Code; dnr/dni CM working on placement Updated father and step mother at bedside I spent a total of 35 minutes coordinating, documenting and providing care for this patient excluding time spent in performance of separately billed services Admission and Anticipated Discharge Date Admission Date: March 31, 2024 Subjective Patient seen and examined. Reports weakness, nausea, anorexia and abdominal pain Reported diarrhea yesterday that resolved with imodium Physical Exam Constitutional: + well hydrated; no acute distress Eyes: PERRL, conjunctivae normal, anicteric sclerae ENMT: external ear and nose normal, oropharynx normal Respiratory: normal respiratory effort, lungs clear to auscultation Cardiovascular: S1 S2 Gastrointestinal (Abdomen): LUQ tenderness, soft, normal bowel sounds Musculoskeletal: No pedal edema Neurologic: PERRL, EOMI, accommodation nl, no face palsy, no dysarthria Psychiatric: AOX3 Results & Data Results & Data Vital Signs (Past 12 Hours) Vital Signs Temp Pulse Resp BP Pulse Ox O2 Del Method 04/15/24 07:22 36.8 C 94 H 16 116/73 93 Room Air
--- NOTE | 2024-04-16 18:25 | Hospitalist Progress Note ---
Date of Service April 16, 2024 Assessment & Plan (1) Splenic infarct: (2) Lymphoproliferative disease: (3) Pneumonia: (4) Hepatic lesion: (5) Transaminitis: Plan per previous hospitalist notes with addendum: 54yoF with PMHx significant for ITP, antiphospholipid syndrome/DVT currently on Lovenox, subdural hematoma, cholecystectomy, diabetes mellitus, hypothyroidism, and GERD presenting with three weeks of generalized malaise and abdominal pain with N/V and nonbloody diarrhea. She is being managed for the following: Acute on chronic anemia, unclear etiology Blood Antibody, unidentifiable Lymphoproliferative disorder Thrombocytopenia Outpatient records - 03/04 CBC: 12/36.9, plt 60k, wbc 5. Hgb on admission, 7.9. Anemia labs: B12 985, Folate 12.72, FE 70, TIBC 88, Ferritin 922.7, t bili 0.8 Concern for possible Lymphoma per admitting CTAP: 1. Interval progression of hepatosplenomegaly since CT of March 29, 2023 and a new 7.6 x 3.8 cm splenic infarct. Development of abdominal and pelvic lymphadenopathy. Overall, these findings raise the possibility of a lymphoproliferative disorder. 2. Multiple new ill-defined hypodense foci within the liver. These are entirely nonspecific although could be seen in the setting of lymphoma. Liver protocol MRI may be of benefit in further characterization. Oncology evaluated and recommended biopsy of one of the LNs to establish the cause for the lymphoproliferative disease. Patient declined MRI and biopsy. FOBT was positive No bloody stool, BUN normal Pt also doesn't want any EGD or Colon scope even if they are needed. Continue po pantoprazole. Hb had been in 7s Platelet has been trended down. Down to 17 -Low frequency Antibodies +, per Nomi Dominique of blood bank - [facility] didn't find a low freq IgG Ab on any of their cell lines so they don't think it was clinically significant. 04/16 Patient declines further blood transfusions Hepatosplenomegaly, progressing Hepatic hypodense Lesions, new Transaminitis N/V/D/Abdominal Pain - Pt presenting with abdominal pain for the last 3 weeks [employer] Noted transaminitis likely iso hepatic lesions, pt with Hx of cholecystectomy 2021, Stool Cx negative CT abd/pelvis as above Pt declines further work up. 04/16 Continue as needed meds for symptom management Goals of care discussion: Per previous provider, She also declines any further blood product transfusion as of 04/07/24 Also did not want endoscopies. Palliative evaluated As per 04/08, patient does not want heart monitor, no escalation of care, continue current therapy including labs and focus on symptom management Patient is not on hospice/comfort measure only On 04/12/24, Patient restated that she does not want blood transfusion and declined further blood work at this time Chronic idiopathic thrombocytopenia Hx of ITP Follows Dr. Ralph Barron -trialed on Rituxan, c/b allergic reaction. Completed prolonged steroid taper Antiphospholipid antibody syndrome: on chronic anticoagulation Recent Subdural Hematoma 11/2023 Splenic Infarct: per admitting CTAP - see above. INR 2.5 on admission, transitioned to Heparin drip given history of subdural, but need for AC given propensity for thrombosis Was on lovenox 50mg BID at home Anemia work up as above Hem/Onc : transfuse platelet if less than 10,000 or if the patient is actively bleeding. Hold anticoagulation as long as platelet count is less than 50,000 given the risks of bleeding. If the patient is symptomatic from the splenic infarct then consider low-dose heparin and titrate to lower level of anti-Xa at any level. Anticoagulation has been on hold due to thrombocytopenia and anemia Pneumonia, questionable aspiration Sepsis, POA CT abdomen/pelvis noting 1.7 cm RLL airspace opacity and groundglass opacities within the lower lobes, favoring an infectious process. Tachycardic, tachypneic and hypotensive on admission with pulmonary infectious source. Procal elevated, lactate wnl. Blood Cx x2 negative Pt denies aspiration and has Zosyn allergy Had been on Cefepime for 9 days, Received 7 days of flagyl and 6 days of azithromycin Off antibiotics now 04/16 Respiratory status stable Speech recs noted Poor food intake. Continue to encourage frequent small meals if possible TRISHA: resolved Demand ischemia: Troponin mildly elevated at presentation, EKG with sinus tachycardia, echo with EF of 60 to 65%, no wall motion abnormality. Likely demand ischemia in the setting of acute illness. Hypocalcemia : Monitor and replete. Hypovolemic Hyponatremia: Sodium of 127 at presentation. Likely in the setting of dehydration. Patient with chronic nausea and vomiting. s/p ivf. Improved. Back lesion: Pt with raised firm lesion on her upper back concerning for a skin carcinoma. OP f/u w/ derm on dc. DMII: A1c 4.3. Reportedly diet controlled Severe protein calorie malnutrition: 64 lb weight loss Diet:DMII DVT prophylaxis: SCDs, hold home lovenox, scds re: low platelets increased risk of bleeding. Code; dnr/dni CM working on placement Admission and Anticipated Discharge Date Admission Date: March 31, 2024 Subjective Follow-up for possible lymphoma, etc. Seen resting in bed, not in distress, on the weak side States she is still having nausea and some epigastric discomfort Has received as needed medications Seems to be relieving Would like to have as needed morphine, No other new symptoms Review of Systems Review of Systems: all noted and negative except for above Physical Exam Physical Exam: General- oriented x 3, not in distress, speaks in sentences with no effort or accessory muscle use Eyes- anicteric Neck- no JVD Lungs- clear breath sounds bilaterally, no rales/wheezes Heart- normal rate, regular rhythm; no murmurs Abdomen- normal bowel sounds, nondistended, soft, nontender Extremities- no pretibial edema, no calf tenderness Neuro- alert, oriented x 3; no gross focal neurologic deficits Skin- warm & dry Results & Data Results & Data Vital Signs (Past 12 Hours) Vital Signs Temp Pulse Resp BP Pulse Ox O2 Del Method 04/16/24 15:09 36.8 C 95 H 20 107/59 L 94 Room Air 04/16/24 07:09 36.5 C 93 H 18 130/75 94 Room Air all noted and reviewed including below
--- NOTE | 2024-04-17 13:20 | Discharge Summary ---
Discharge Summary Date of Service April 17, 2024 Principal Dx & Hospital Course #1 = Principal Diagnosis (1) Splenic infarct: (2) Lymphoproliferative disease: (3) Pneumonia: (4) Hepatic lesion: (5) Transaminitis: Plan per previous hospitalist notes with addendum: 54yoF with PMHx significant for ITP, antiphospholipid syndrome/DVT currently on Lovenox, subdural hematoma, cholecystectomy, diabetes mellitus, hypothyroidism, and GERD presenting with three weeks of generalized malaise and abdominal pain with N/V and nonbloody diarrhea. She is being managed for the following: Acute on chronic anemia, unclear etiology Blood Antibody, unidentifiable Lymphoproliferative disorder Thrombocytopenia Outpatient records - 03/04 CBC: 12/36.9, plt 60k, wbc 5. Hgb on admission, 7.9. Anemia labs: B12 985, Folate 12.72, FE 70, TIBC 88, Ferritin 922.7, t bili 0.8 Concern for possible Lymphoma per admitting CTAP: 1. Interval progression of hepatosplenomegaly since CT of March 29, 2023 and a new 7.6 x 3.8 cm splenic infarct. Development of abdominal and pelvic lymphadenopathy. Overall, these findings raise the possibility of a lymphoproliferative disorder. 2. Multiple new ill-defined hypodense foci within the liver. These are entirely nonspecific although could be seen in the setting of lymphoma. Liver protocol MRI may be of benefit in further characterization. Oncology evaluated and recommended biopsy of one of the LNs to establish the cause for the lymphoproliferative disease. Patient declined MRI and biopsy. FOBT was positive No bloody stool, BUN normal Pt also doesn't want any EGD or Colon scope even if they are needed. Continue po pantoprazole. Hb had been in 7s Platelet has been trended down. Down to 17 -Low frequency Antibodies +, per Nomi Dominique of blood bank [facility] didn't find a low freq IgG Ab on any of their cell lines so they don't think it was clinically significant. 04/17 Patient declines further blood transfusions Continue symptom control with Protonix twice a day, as needed Zofran Hepatosplenomegaly, progressing Hepatic hypodense Lesions, new Transaminitis N/V/D/Abdominal Pain - Pt presenting with abdominal pain for the last 3 weeks [employer] Noted transaminitis likely iso hepatic lesions, pt with Hx of cholecystectomy 2021, Stool Cx negative CT abd/pelvis as above Pt declines further work up. 04/17 Continue as needed meds for symptom management Goals of care discussion: Per previous provider, She also declines any further blood product transfusion as of 04/07/24 Also did not want endoscopies. Palliative evaluated As per 04/08, patient does not want heart monitor, no escalation of care, continue current therapy including labs and focus on symptom management Patient is not on hospice/comfort measure only On 04/12/24, Patient restated that she does not want blood transfusion and declined further blood work at this time Chronic idiopathic thrombocytopenia Hx of ITP Follows Dr. Ralph Barron -trialed on Rituxan, c/b allergic reaction. Completed prolonged steroid taper Antiphospholipid antibody syndrome: on chronic anticoagulation Recent Subdural Hematoma 11/2023 Splenic Infarct: per admitting CTAP - see above. INR 2.5 on admission, transitioned to Heparin drip given history of subdural, but need for AC given propensity for thrombosis Was on lovenox 50mg BID at home Anemia work up as above Hem/Onc : transfuse platelet if less than 10,000 or if the patient is actively bleeding. Hold anticoagulation as long as platelet count is less than 50,000 given the risks of bleeding. If the patient is symptomatic from the splenic infarct then consider low-dose heparin and titrate to lower level of anti-Xa at any level. Anticoagulation hheld due to thrombocytopenia and anemia Pneumonia, questionable aspiration Sepsis, POA CT abdomen/pelvis noting 1.7 cm RLL airspace opacity and groundglass opacities within the lower lobes, favoring an infectious process. Tachycardic, tachypneic and hypotensive on admission with pulmonary infectious source. Procal elevated, lactate wnl. Blood Cx x2 negative Pt denies aspiration and has Zosyn allergy Had been on Cefepime for 9 days, Received 7 days of flagyl and 6 days of azithromycin Off antibiotics now 04/17 Respiratory status stable Speech recs noted Poor food intake. Continue to encourage frequent small meals if possible TRISHA: resolved Demand ischemia: Troponin mildly elevated at presentation, EKG with sinus tachycardia, echo with EF of 60 to 65%, no wall motion abnormality. Likely demand ischemia in the setting of acute illness. Hypocalcemia : Monitor and replete. Hypovolemic Hyponatremia: Sodium of 127 at presentation. Likely in the setting of dehydration. Patient with chronic nausea and vomiting. s/p ivf. Improved. Back lesion: Pt with raised firm lesion on her upper back concerning for a skin carcinoma. OP f/u w/ derm on dc. DMII: A1c 4.3. Reportedly diet controlled Severe protein calorie malnutrition: 64 lb weight loss Diet:DMII DVT prophylaxis: SCDs, hold home lovenox, scds re: low platelets increased risk of bleeding. Code; dnr/dni Transition to [facility] facility Notes For Next Care Provider Medication Changes From Visit Please refer to medical reconciliation Admission HPI Per Admitting Provider Pt is a 54yoF with PMHx significant for ITP, antiphospholipid syndrome and Hx of DVT currently on Lovenox, Hx of subdural hematoma, Hx of cholecystectomy, diabetes mellitus, hypothyroidism, and GERD presenting with three weeks of generalized malaise and abdominal pain with N/V and nonbloody diarrhea. She states that she was fine about a month ago, was able to eat. However about 3 weeks ago felt like her eating habits "slowed down". She noticed that she was more nauseous without an appetite. States she had a few episodes of emesis. States that when she eats it stays down for the most part, no dysphagia noted. Thought she was constipated when this started so took stool softeners with applesauce and apple juice and has been having diarrhea since then. States that she just feels sick. Was feeling bloated at one point. States she felt like things were just getting worse so she decided to come in to be evaluated. Has been having more abdominal pain recently. Mostly in the RUQ but it goes across to the LUQ. Has not noticed any episodes of bleeding. States no hematemesis, epistaxis or blood stools. Tearful at times during the discussion of her symptoms and the CT findings. States that she would like updates provided to her dad Nba Chicas but not to MARY Chicas her brother as they don't talk. Admission Exam Per Admitting Provider General: Alert, oriented, tearful at times Skin: bruising on skin noted, raised circular firm lesion on back Psych: Appropriate mood and affect Neuro: No gross deficits while sitting in bed HEENT: NC/AT CV: RRR Resp: Breath sounds clear bilaterally, no increased effort of breathing. Abdomen: Soft, tender diffusely but mostly in RUQ> LUQ Extremities: trace edema in lower extremities bilaterally. Discharge Exam General- oriented x 3, not in distress, speaks in sentences with no effort or accessory muscle use Weak Eyes- anicteric Neck- no JVD Lungs- clear breath sounds bilaterally, no rales/wheezes Heart- normal rate, regular rhythm; no murmurs Abdomen- normal bowel sounds, nondistended, soft,Mildly tender on all quadrants Extremities- no pretibial edema, no calf tenderness Neuro- alert, oriented x 3; no gross focal neurologic deficits Skin- warm & dry Updated Medication List Medication Instructions Recorded Confirmed Type Lactobacillus acidophilus 1 cap PO DAILY 08/30/22 03/31/24 History enoxaparin 60 mg/0.6 mL 50 mg subcut BID 03/31/24 03/31/24 History subcutaneous syringe acetaminophen 500 mg tablet 500 - 1,000 mg (1 - 2 x 500 mg) PO 04/17/24 Rx (Tylenol Extra Strength) Q6H PRN q6 #30 tabs levetiracetam 500 mg tablet 500 mg PO BID #60 tabs 04/17/24 Rx (Keppra) levothyroxine 50 mcg tablet 50 mcg PO QAM #30 tabs 04/17/24 Rx loratadine 10 mg tablet 10 mg PO QAM PRN Allergy Symptoms 04/17/24 Rx #30 tabs ondansetron HCl 4 mg tablet 4 mg PO Q6H PRN nausea and 04/17/24 Rx vomiting #20 tabs pantoprazole 40 mg tablet,delayed 40 mg PO BID #60 tabs 04/17/24 Rx release polyethylene glycol 3350 17 gram 17 g PO DAILY PRN Constipation #14 04/17/24 Rx oral powder packet (Miralax) ea sennosides 8.6 mg-docusate sodium 8.6 - 50 tab PO DAILY PRN 04/17/24 Rx 50 mg tablet ([place]-S) Constipation #14 tabs simvastatin 20 mg tablet 20 mg PO HS #30 tabs 04/17/24 Rx Hospital Stay Data Consultations 03/31/24 10:16 ED Decision to Admit Stat 03/31/24 12:13 Consult Hematology Routine 04/01/24 12:22 Consult Palliative Care Routine Diagnostic Imagining Performed Laboratory Results WBC 9.10 K/ul (4.8-10.8) 04/11/24 08:14 RBC 2.42 M/uL (4.20-5.40) L 04/11/24 08:14 Hgb 7.1 g/dl (12.0-16.0) L 04/11/24 08:14 Hct 22.3 % (37.0-47.0) L 04/11/24 08:14 MCV 92.1 fL (80.0-100.0) 04/11/24 08:14 MCH 29.3 pg (25.0-34.0) 04/11/24 08:14 MCHC 31.8 g/dL (32.0-36.0) L 04/11/24 08:14 RDW Std Deviation 55.7 fL (36.4-46.3) H 04/11/24 08:14 RDW Coeff of Mitch 16.9 % (11.5-14.5) H 04/11/24 08:14 Plt Count 17 K/uL (130-400) L* 04/11/24 08:14 MPV 12.0 fL (9.4-12.4) 04/09/24 06:33 Immature Gran % (Auto) 5.1 % 04/04/24 20:11 Neut % (Auto) 74.5 % 04/04/24 20:11 Lymph % (Auto) 10.8 % 04/04/24 20:11 Lares % (Auto) 9.5 % 04/04/24 20:11 Eos % (Auto) 0.0 % 04/04/24 20:11 Baso % (Auto) 0.1 % 04/04/24 20:11 Reticulocyte % (Auto) 3.76 % (0.50-2.00) H 04/01/24 05:38 Reticulocyte % (Auto) Cancelled 04/01/24 05:38 Neut # (Auto) 5.23 K/uL (1.40-6.50) 04/04/24 20:11 Lymph # (Auto) 0.76 K/uL (1.20-3.40) L 04/04/24 20:11 Lares # (Auto) 0.67 K/uL (0.11-0.59) H 04/04/24 20:11 Eos # (Auto) 0.00 K/uL (0.00-0.50) 04/04/24 20:11 Baso # (Auto) 0.01 K/uL (0.00-0.20) 04/04/24 20:11 Reticulocyte # 0.080 10^6/uL (0.020-0.100) 04/01/24 05:38 Reticulocyte # Cancelled 04/01/24 05:38 Immature Gran # (Auto) 0.36 K/uL (0.01-0.20) H 04/04/24 20:11 Platelet Estimate Signific. Decreased (Normal) L 04/10/24 05:35 RBC Morphology Unremarkable 04/01/24 05:38 Polychromasia 1+ 04/04/24 20:11 Spherocytes 2+ 04/01/24 21:15 Echinocytes 2+ 04/04/24 20:11 Acanthocytes (Spur) 1+ 04/01/24 21:15 Peripher Smr Path Cons 04/01/24 05:38 Peripher Smr Path Cons Cancelled 04/01/24 05:38 Immature Retic Fraction 27.6 % (2.3-15.9) H 04/01/24 05:38 Immature Retic Fraction Cancelled 04/01/24 05:38 Retic Hgb Content 26.7 pg (28.2-36.6) L 04/01/24 05:38 Retic Hgb Content Cancelled 04/01/24 05:38 Haptoglobin 363 mg/dL (43-212) H 04/01/24 05:38 PT 19.9 Seconds (9.0-12.0) H 04/03/24 06:07 INR 1.9 (0.9-1.1) H 04/03/24 06:07 APTT 83 Seconds (21-31) H* 04/01/24 21:15 PTT Ratio 3.1 04/01/24 21:15 Sodium 133 mmol/L (136-145) L 04/11/24 08:14 Potassium 4.1 mmol/L (3.5-5.1) 04/11/24 08:14 Chloride 105 mmol/L (98-107) 04/11/24 08:14 Carbon Dioxide 20 mmol/L (21-32) L 04/11/24 08:14 Anion Gap 8 (3-11) 04/11/24 08:14 BUN 20 mg/dl (6-23) 04/11/24 08:14 Creatinine 1.01 mg/dl (0.6-1.2) 04/11/24 08:14 Est Cr Clr Drug Dosing 67.5 ml/min 04/11/24 08:14 Est GFR ( Amer) 72.6 ml/min 04/11/24 08:14 Est GFR (Non-Af Amer) 62.6 ml/min 04/11/24 08:14 BUN/Creatinine Ratio 19.8 (10-20) 04/11/24 08:14 Glucose 91 mg/dl (70-99(Fasting)) 04/11/24 08:14 POC Glucose 120 mg/dl (70-99) H 03/31/24 16:28 Estimat Average Glucose 77 mg/dl 04/01/24 05:38 Hemoglobin A1c 4.3 % (4.5-5.6) L 04/01/24 05:38 Lactate 1.0 mmol/L (0.4-2.0) 03/31/24 11:14 Calcium 8.4 mg/dl (8.6-10.3) L 04/11/24 08:14 Ionized Calcium 1.21 mmol/L (1.12-1.32) 04/01/24 05:38 Phosphorus 3.6 mg/dl (2.5-4.9) 04/11/24 08:14 Magnesium 2.0 mg/dl (1.7-2.4) 04/11/24 08:14 Iron 70 mcg/dl (35-150) 04/01/24 05:38 TIBC 158 mcg/dl (250-450) L 04/01/24 05:38 Unsaturated IBC 88 mcg/dl (155-355) L 04/01/24 05:38 Transferrin % Sat 44 % (15-50) 04/01/24 05:38 Ferritin 922.7 ng/ml (8-388) H 04/01/24 05:38 Total Bilirubin 0.7 mg/dl (0.2-1.0) 04/06/24 05:32 Direct Bilirubin 0.4 mg/dl (0-0.2) H 04/03/24 06:07 AST 30 U/L (13-39) 04/06/24 05:32 ALT 31 U/L (7-52) 04/06/24 05:32 Alkaline Phosphatase 135 U/L (34-104) H 04/06/24 05:32 Lactate Dehydrogenase 229 U/L (86-244) 04/01/24 05:38 Troponin I High Sens 57.9 pg/ml (0-14) H* 03/31/24 10:11 Total Protein 6.3 gm/dl (6.0-8.3) 04/06/24 05:32 Albumin 2.4 gm/dl (3.4-5.0) L 04/06/24 05:32 Globulin 3.9 gm/dl (2.5-4.0) 04/06/24 05:32 Albumin/Globulin Ratio 0.6 (0.9-2) L 04/06/24 05:32 Vitamin B12 985 pg/ml (180-914) H 04/01/24 05:38 Folate 12.72 ng/ml (>5.38) 04/01/24 05:38 Procalcitonin 10.90 ng/ml (0-0.5) H 03/31/24 08:17 Procalcitonin Cancelled 03/31/24 08:17 TSH 8.454 uIu/ml (0.300-4.500) H 03/31/24 08:17 Free T4 0.98 ng/dl (0.61-1.60) 03/31/24 08:17 Urine Color Yellow 03/31/24 10:16 Urine Appearance Clear (Clear) 03/31/24 10:16 Urine pH 6.0 (4.5-7.5) 03/31/24 10:16 Ur Specific [place] 1.019 (1.000-1.030) 03/31/24 10:16 Urine Protein 1+ (Negative) H 03/31/24 10:16 Urine Glucose (UA) Negative (Negative) 03/31/24 10:16 Urine Ketones Negative (Negative) 03/31/24 10:16 Urine Blood 2+ (Negative) H 03/31/24 10:16 Urine Nitrite Negative (Negative) 03/31/24 10:16 Urine Bilirubin Negative (Negative) 03/31/24 10:16 Urine Urobilinogen Negative (Negative) 03/31/24 10:16 Ur Leukocyte Esterase Negative (Negative) 03/31/24 10:16 Urine WBC (Auto) 0-5 /hpf (0-5) 03/31/24 10:16 Urine RBC (Auto) 3-5 /hpf (0-2) H 03/31/24 10:16 U Hyaline Cast (Auto) 0-2 /lpf (0-2) 03/31/24 10:16 U Epithel Cells (Auto) 0-2 /hpf (0-2) 03/31/24 10:16 Urine Bacteria (Auto) None Seen (None Seen) 03/31/24 10:16 Stool Occult Bld Scrn Positive (Negative) A 03/31/24 Unknown Stl C. cayetanensis PCR Not Detected (NotDetected) 03/31/24 08:20 Stool Rotavirus A PCR Not Detected (NotDetected) 03/31/24 08:20 Stl Adenov F 40/41 PCR Not Detected (NotDetected) 03/31/24 08:20 Stool Astrovirus (PCR) Not Detected (NotDetected) 03/31/24 08:20 Stool Campylobacter PCR Not Detected (NotDetected) 03/31/24 08:20 Stool Cryptosporidium PCR Not Detected (NotDetected) 03/31/24 08:20 Stl E.coli Shiga Tox PCR Not Detected (NotDetected) 03/31/24 08:20 Stl Enterotoxigenic E PCR Not Detected (NotDetected) 03/31/24 08:20 Stool EPEC (PCR) Not Detected (NotDetected) 03/31/24 08:20 Stool EAEC (PCR) Not Detected (NotDetected) 03/31/24 08:20 Stl E. histolytica PCR Not Detected (NotDetected) 03/31/24 08:20 Stool Giardia Lamblia PCR Not Detected (NotDetected) 03/31/24 08:20 Stool Salmonella PCR Not Detected (NotDetected) 03/31/24 08:20 Stool Sapovirus (PCR) Not Detected (NotDetected) 03/31/24 08:20 Stl P. shigelloides PCR Not Detected (NotDetected) 03/31/24 08:20 Stl Shigella/EIEC PCR Not Detected (NotDetected) 03/31/24 08:20 St Y.enterocolitica PCR Not Detected (NotDetected) 03/31/24 08:20 Stool Vibrio (PCR) Not Detected (NotDetected) 03/31/24 08:20 Stl Vibrio cholerae PCR Not Detected (NotDetected) 03/31/24 08:20 Stl Norovirus GI/GII PCR Not Detected (NotDetected) 03/31/24 08:20 Adenovirus (PCR) Not Detected (NotDetected) 03/31/24 08:19 Anaplasma Smear See Comment 03/31/24 08:17 A. phagocytophilum DNA Negative (Negative) 03/31/24 08:17 Babesia Smear See Comment 03/31/24 08:17 Babesia microti DNA PCR Not Detected (Not Detected) 03/31/24 09:10 B. pertussis DNA (PCR) Not Detected (NotDetected) 03/31/24 08:19 B.parapertussis DNA PCR Not Detected (NotDetected) 03/31/24 08:19 Lyme Disease Screen Negative (Negative) 03/31/24 08:17 C. pneumoniae DNA (PCR) Not Detected (NotDetected) 03/31/24 08:19 Coronavirus OC43 (PCR) Not Detected (NotDetected) 03/31/24 08:19 Coronavirus HKU1 (PCR) Not Detected (NotDetected) 03/31/24 08:19 Coronavirus 229E (PCR) Not Detected (NotDetected) 03/31/24 08:19 SARS-CoV-2 (PCR) Not Detected (NotDetected) 03/31/24 08:19 Coronavirus NL63 (PCR) Not Detected (NotDetected) 03/31/24 08:19 Human Metapneumovir PCR Not Detected (NotDetected) 03/31/24 08:19 Influenza Type A (PCR) Not Detected (NotDetected) 03/31/24 08:19 Influenza Type B (PCR) Not Detected (NotDetected) 03/31/24 08:19 M. pneumoniae (PCR) Not Detected (NotDetected) 03/31/24 08:19 Parainfluenza 1 (PCR) Not Detected (NotDetected) 03/31/24 08:19 Parainfluenza 2 (PCR) Not Detected (NotDetected) 03/31/24 08:19 Parainfluenza 3 (PCR) Not Detected (NotDetected) 03/31/24 08:19 Parainfluenza 4 (PCR) Not Detected (NotDetected) 03/31/24 08:19 RSV (PCR) Not Detected (NotDetected) 03/31/24 08:19 Entero/Rhino (PCR) Not Detected (NotDetected) 03/31/24 08:19 Blood Type A Positive 03/31/24 10:11 Antibody Screen POSITIVE A 03/31/24 10:11 Antibody Identification Auto Cold Agglutinin 03/31/24 10:11 Antibody ID Referred 04/01/24 08:56 Antibody ID Comment 03/31/24 10:11 Direct Antiglob Test Positive (Negative) A 03/31/24 10:11 MARY (IgG-AHG) Weak Pos (Negative) A 03/31/24 10:11 MARY, Polyspecific Weak Pos (Negative) A 03/31/24 10:11 MARY C3b, C3d 5 Min 1+ (Negative) A 03/31/24 10:11 Crossmatch See Detail 03/31/24 10:11 Impressions Chest X-Ray 03/31/24 08:23 XR chest 1V portable CLINICAL HISTORY: weakness COMPARISON STUDY: Chest radiograph December 14, 2023. Chest CT April 30, 2022. FINDINGS: Elevation of the left hemidiaphragm has increased. Linear left basilar opacity favors atelectasis. Chronic interstitial thickening is unchanged. Cardio megaly is unchanged. There is no pneumothorax or pleural effusion. IMPRESSION: 1. No acute cardiopulmonary findings. 2. Increase in elevation of the left hemidiaphragm. ACT 112: Negative or not required by law. Electronically signed by: Laith Gold M.D. 03/31/2024 8:35 AM Abdomen/Pelvis CT 03/31/24 08:37 CT OF THE ABDOMEN AND PELVIS WITH CONTRAST CLINICAL HISTORY: pain, fever, loose stool COMPARISON STUDY: CT of the abdomen and pelvis March 29, 2023. Left hip ultrasound November 03, 2023. TECHNIQUE: Following IV administration of 94 mL of Optiray, axial images of the abdomen and pelvis were obtained from the lung bases to the proximal femurs. Images were reviewed in the axial, sagittal, and coronal planes. IV contrast was administered without complication. Automated exposure control was utilized for the study. A dose lowering technique was utilized adhering to the principles of ALARA. CT DOSE: 1226.12 mGy.cm FINDINGS: Elevation of the left hemidiaphragm is noted. An irregular 1.7 cm right lower lobe airspace opacity on image 33 of 373 is noted. There are mild groundglass opacities within the lower lobes. No pneumatosis, free air or portal venous gas is present. Hepatosplenomegaly has increased since CT of March 29, 2023. The spleen is markedly enlarged. The liver is moderately enlarged. Several ill-defined hypodense foci within the liver have developed since prior CT. The largest is a 3.5 cm focus within the right hepatic lobe on image 111. A 7.6 x 3.8 cm hypodense focus within the spleen represents a splenic infarct. There is a smaller additional splenic infarct. There is no perisplenic fluid. There is mild stranding within the raf hepatis. No biliary ductal dilatation is identified status post cholecystectomy. Adrenal glands, kidneys and pancreas are normal. There is no evidence for a bowel obstruction. Sigmoid diverticulosis is present. No evidence for acute diverticulitis. Abdominal and pelvic l ymphadenopathy has developed since prior CT T. A raf hepatis lymph node on image 135 measures 2.1 x 2.3 cm. Left para-aortic lymph node on image 154 measures 1.8 x 1.5 cm. Left external iliac lymph node on image 270 measures 1.9 x 1.3 cm. Additional left external iliac lymph node on image 310 measures 2.9 x 1.2 cm. IMPRESSION: 1. Interval progression of hepatosplenomegaly since CT of March 29, 2023 and a new 7.6 x 3.8 cm splenic infarct. Development of abdominal and pelvic lymphadenopathy, as described above. Overall, these findings raise the possibility of a lymphoproliferative disorder. Oncology consultation is recommended. 2. Multiple new ill-defined hypodense foci within the liver. These are entirely nonspecific although could be seen in the setting of lymphoma. Liver protocol MRI may be of benefit in further characterization. 3. No bowel obstruction. No bowel wall thickening. 4. 1.7 cm irregular right lower lobe airspace opacity and groundglass opacities within the lower lobes. The findings favor an infectious process. However, a follow-up chest CT in one month to ensure resolution. ACT 112: Positive. There are findings on this exam that require communication between the performing entity and the patient following Patient Test Result Information Act ([place] Act 112) guidelines. Electronically signed by: Laith Gold M.D. 03/31/2024 9:56 AM 03/31/24 08:37 CT abd pelvis IV con only Stat Pending Results Patient Have Any Pending Studies at Discharge: No Discharge Instructions Given to Patient (Per Discharging Provider) Please refer to accompanying hospital discharge summary for further details. Total Time Total Time Spent Total Time Spent (In Minutes): 35 minutes
== END 2024-04-17 16:16 | DRG 871 ==
LOC: ED 08:01 → 2S 10:13 → SUATTDRO 10:13 → INTOOBSV 10:13 → 2S 11:30 → 3E 04-08 22:44